=== PATIENT | female | born 1935 | race Hispanic/Latino ===

== ENCOUNTER 2017-03-10 13:43 | Emergency (ER) | payer MEDICARE, BC ==
[2017-03-10 13:45] VITALS: PULSE 73
[2017-03-10 14:01] VITALS: TEMP 97.6; BMI 26.7
--- NOTE | 2017-03-10 14:57 | ED PDOC ---
Arrival/HPI - General Chief Complaint: Palpitations Time Seen by Provider: 03/10/17 14:00 - History of Present Illness Narrative History of Present Illness (Text): 03/10/17 14:54 81 F w/ PMHx of A-Fib presents with palpitations and dizziness of a week's duration. Patient had a complete work up last weekend for the same symptoms, but presents today because her symptoms have not resolved. Patient denies cp, sob, f/ch/n/v/d. Patient refused any further work up including imaging, lab exams, and ekg. 03/10/17 15:21 Patient was initially refusing any further work-up, including imaging, lab exams , and EKG, but she is now requesting a full work up, having changed her mind. Treatment, imaging, and tests were delayed due to her initial refusal for further work up. (Nikita Scott) Past Medical History - Provider Review Nursing Documentation Reviewed: Yes - Travel History Have you recently traveled outside [place] w/in the past 3 mons?: No - Infectious Disease Hx of Infectious Diseases: None - Tetanus Immunization Tetanus Immunization: Unknown - Cardiac Hx Cardiac Disorders: Yes (CAD) Hx Cardiac Arrhythmia: Yes (AFIB) Hx Circulatory Problems: Yes Hx Hypertension: Yes - Pulmonary Hx Respiratory Disorders: Yes Hx Pneumonia: Yes (NOT HOSPITALIZED) - Neurological Hx Neurological Disorder: Yes Hx Dizziness: Yes - HEENT Hx HEENT Disorder: Yes Hx Cataracts: Yes - Musculoskeletal/Rheumatological Hx Musculoskeletal Disorders: Yes Hx Arthritis: Yes Hx Fractures: Yes (right tibia 1987, right ankle 2002) Hx Osteoporosis: Yes Hx Unsteady Gait: Yes (uses a cane arthritis r knee) - Gastrointestinal Hx Gastrointestinal Disorders: Yes (HEMORRHOIDS) - Genitourinary/Gynecological Hx Genitourinary Disorders: Yes (PMB) - Surgical History Hx Cardiac Catheterization: Yes (OCTOBER 2012) Hx Coronary Stent: Yes (x1) Hx Dilation and Curettage: Yes Hx Open Reduction Internal Fixation: Yes (RIGHT TIBIA ANKLE) - Anesthesia Hx Anesthesia: Yes Hx Anesthesia Reactions: Yes (VOMITTING) Hx Malignant Hyperthermia: No - Suicidal Assessment Feels Threatened In Home Enviroment: No Family/Social History - Physician Review Nursing Documentation Reviewed: Yes Family/Social History: Unknown Family HX Smoking Status: Never Smoked Hx Alcohol Use: No Allergies/Home Meds Allergies/Adverse Reactions: Allergies nitroglycerin Allergy (Verified 11/18/15 16:55) ANAPHYLAXIS Homeopathic substances Allergy (Uncoded 11/18/15 16:55) RASH pcn Allergy (Uncoded 11/18/15 16:55) RASH chocolate candy Adverse Reaction (Uncoded 11/18/15 16:54) HEADACHE Home Medications: Home Meds Medication Instructions Recorded Confirmed Aspirin [Ecotrin] 81 mg PO DAILY 11/18/15 03/10/17 Warfarin [Coumadin] 5 mg PO DAILY 11/18/15 03/10/17 Digoxin [Lanoxin] 1 tab PO DAILY 08/19/16 03/10/17 Simvastatin [Zocor] 40 mg PO HS 08/19/16 03/10/17 Atenolol [Tenormin] 12.5 mg PO DAILY 02/01/17 03/10/17 Calcium Carb, Citrate/Vit D3 1 tab PO DAILY 03/10/17 03/10/17 [Calcium + D3 ER Tablet] Review of Systems - Physician Review All systems were reviewed & negative as marked: Yes - Review of Systems Constitutional: Normal. absent: Fatigue, Weight Change, Fevers Eyes: Normal. absent: Vision Changes, Photophobia ENT: Normal. absent: Hearing Changes, Tinnitus Respiratory: Normal. absent: SOB, Cough, Wheezing Cardiovascular: Palpitations. absent: Normal, Chest Pain, Edema, Calf Pain, COLUNGA , Orthopnea Gastrointestinal: Normal. absent: Abdominal Pain, Constipation, Diarrhea, Nausea, Vomiting Genitourinary Female: Normal. absent: Dysuria, Frequency, Hematuria Musculoskeletal: Normal. absent: Arthralgias, Back Pain, Neck Pain Skin: Normal. absent: Rash, Pruritis, Skin Lesions, Laceration Neurological: Dizziness. absent: Normal, Focal Weakness, Speech Changes, Facial Droop (patient has a 'lazy eye' since ) Endocrine: Normal. absent: Diaphoresis, Polyuria Hemo/Lymphatic: Normal. absent: Adenopathy, Easy Bleeding Psychiatric: Normal. absent: Anxiety, Depression Physical Exam Vital Signs Reviewed: Yes Temperature: Afebrile Blood Pressure: Hypertensive Pulse: Regular Respiratory Rate: Normal Appearance: Positive for: Well-Appearing, Non-Toxic, Comfortable Pain Distress: None Mental Status: Positive for: Alert and Oriented X 3 - Systems Exam Head: Present: Atraumatic, Normocephalic. No: Contusion, Swelling, Ecchymosis Pupils: Present: PERRL. No: Sluggish, Non-Reactive, Pinpoint Extroacular Muscles: Present: EOMI. No: Gaze Palsy, Entrapment Conjunctiva: Present: Normal. No: Injected, Icteric Ears: Present: Normal, NORMAL TM, Normal Canal. No: TM Bulging, TM Perf Mouth: Present: Moist Mucous Membranes, Normal Lips, Normal Tounge, Normal Teeth. No: Dry, Drooling Pharnyx: Present: Normal. No: ERYTHEMA, Peritonsilar Swelling Nose (External): Present: Atraumatic. No: Abrasion, Contusion Nose (Internal): Present: Normal Inspection. No: No Active Bleeding, Engorged Neck: Present: Normal Range of Motion. No: MIDLINE TENDERNESS, Paraspinal Tenderness Respiratory/Chest: Present: Clear to Auscultation, Good Air Exchange. No: Respiratory Distress, Accessory Muscle Use, Wheezes, Rales, Rhonchi Cardiovascular: Present: Regular Rate and Rhythm, Normal S1, S2. No: Murmurs, Irregular Rhythm, Tachycardic Abdomen: Present: Normal Bowel Sounds. No: Tenderness, Distention, Peritoneal Signs, Rebound, Guarding Back: Present: Normal Inspection. No: CVA Tenderness, Midline Tenderness, Paraspinal Tenderness Upper Extremity: Present: Normal Inspection, Cyanosis, Edema, Normal ROM, NORMAL PULSES. No: Tenderness, Capillary Refill < 2s Lower Extremity: Present: Normal Inspection, NORMAL PULSES, Normal ROM. No: Edema, CALF TENDERNESS, Cyanosis Neurological: Present: GCS=15, CN II-XII Intact, Speech Normal, Motor Func Grossly Intact, Normal Sensory Function, Normal Cerebellar Funct, Norm Deep Tendon Reflexes Skin: Present: Warm, Normal Color. No: Dry, Rashes Lymphatic: No: Cervical Adenopathy, Axillary Adenopathy, Inguinal Adenopathy Psychiatric: Present: Alert, Oriented x 3, Normal Insight, Normal Concentration. No: Suicidal Ideation, Homicidal Ideation Medical Decision Making ED Course and Treatment: Assessed 03/10/17 15:23 Impression: 81 F with PMHx of A-Fib complains of palpitations and dizziness of one week duration. Recently had a full work-up at [place] for the same symptoms Plan: - Patient initially wanted to sign out AMA, so delayed work up. - CXR - EKG - Tropes, CMP, CBC - Coags Reassessed 03/10/17 16:00 - EKG: Interpreted by me, Atrial Fibrillation with rate of 72 bpm Reassessed 03/10/17 16:08 - CXR: Shows mild L basilar atelectasis and infiltrate - PSI Score: 82, Risk Class III, 0.9-2.8% mortality. Outpatient or inpatient treatment, depending on clinical judgment. - Patient has no sob, no fevers, no chills, no RRW. Rx'd outpatient Doxycycline 100 mg PO bid for 7 days (patient allergic to azithromycin) Reassessed 03/10/17 16:42 - Case d/w Dr. Frias for admission, he states that patient can follow up outpatient with him. Does not think she needs to be admitted right now. Patient will be d/c'd home (Nikita Scott) 03/10/17 15:57 Patient seen and examined with resident Came up with treatment and disposition plan with resident 03/10/17 17:30 pt with poorly controlled HTN, lightheadedness and palpitations, intermittent. No acute findings on PE and pt has no focal neurological deficits on examination. Initial w/u negative dw Dr. Waller in detail, states this complaint is chronic and he asked to have pt f/u outpatient pt in no distress states she feels comfortable being dc'd home with outpatient f/u at this time CXR with questionable infiltrate, will be dc'd home on abx pt has no f/c/cough, no sob/colunga/cp (Ramses Quezada) - Lab Interpretations Lab Results: 03/10/17 15:50 03/10/17 15:50 Lab Results 03/10/17 15:50: Sodium 143, Potassium 4.5, Chloride 104, Carbon Dioxide 26, Anion Gap 18, BUN 21, Creatinine 0.7, Est GFR ( Amer) > 60, Est GFR (Non- Af Amer) > 60, Random Glucose 100, Calcium 9.6, Total Bilirubin 0.7, AST 36, ALT 36, Alkaline Phosphatase 88, Troponin I < 0.01, Total Protein 8.7 H, Albumin 4.8, Globulin 3.8, Albumin/Globulin Ratio 1.3 03/10/17 15:50: APTT 41.1 H 03/10/17 15:50: WBC 9.6 D, RBC 5.13, Hgb 14.8, Hct 43.5, MCV 84.8, MCH 28.8, MCHC 34.0, RDW 15.0 H, Plt Count 177, MPV 10.6, Gran % 64.8, Lymph % (Auto) 24.7 , [place] % (Auto) 7.9 H, Eos % (Auto) 2.1, Baso % (Auto) 0.5, Gran # 6.20, Lymph # 2.4, [place] # 0.8 H, Eos # 0.2, Baso # 0.05 - RAD Interpretation Radiology Orders: 03/10/17 14:36 CHEST PORTABLE [RAD] Stat Disposition/Present on Arrival - Present on Arrival Any Indicators Present on Arrival: No History of DVT/PE: No History of Uncontrolled Diabetes: No Urinary Catheter: No History of Decub. Ulcer: No History Surgical Site Infection Following: None - Disposition Have Diagnosis and Disposition been Completed?: Yes Disposition Time: 16:47 Patient Plan: Discharge - Disposition Diagnosis: Dizziness, Palpitations Disposition: HOME/ ROUTINE Condition: GOOD Additional Instructions: Kamryn Imelda, thank you for letting us take care of you today. Your providers were Dr. Quezada and Dr. Scott. You were treated for palpitations and dizziness. The emergency medical care you received today was directed at your acute symptoms. If you were prescribed any medication, please fill it and take as directed. It may take several days for your symptoms to resolve. Return to the Emergency Department if your symptoms worsen, do not improve, or if you have any other problems. Please contact your doctor or call one of the physicians/clinics you have been referred to that are listed on the Patient Visit Information form that is included in your discharge packet. Bring any paperwork you were given at discharge with you along with any medications you are taking to your follow up visit. Our treatment cannot replace ongoing medical care by a primary care provider (PCP) outside of the emergency department. Thank you for allowing the [facility] team to be part of your care today. If you had an X-Ray or CT scan: A Radiologist will review the ED reading if any change in treatment is needed we will contact you. If you had a blood, urine, or wound culture: It will take several days for the results, if any change in treatment is needed we will contact you. If you had an STI test: It will take 48 hours for the results. Please call after 1 week if you have not heard back. 1. Please follow up with your primary care provider, Dr. Frias, within this week. 2. Should your symptoms persist or get worse, please return to the ED. Prescriptions: Doxycycline Hyclate 100 mg PO BID #14 cap Forms: [employer] (Mal[place]ian)
[2017-03-10 16:02] LABS: BASO # 0.05 K/mm3 (0.0-2.0); BASO % 0.5 % (0.0-3.0); EOS # 0.2 (0.0-0.7); EOS % 2.1 % (1.5-5.0); GRAN # 6.2 (1.4-6.5); GRAN % 64.8 % (50.0-68.0); HEMATOCRIT 43.5 % (36.0-48.0); LYMPH # 2.4 (1.2-3.4); LYMPH % 24.7 % (22.0-35.0); MEAN CELL VOLUME 84.8 fl (80.0-105.0); MEAN CORPUSCULAR HEMOGLOBIN 28.8 pg (25.0-35.0); MEAN PLATELET VOLUME 10.6 fl (7.0-11.0); MONO # 0.8 (0.1-0.6); MONO % 7.9 % (1.0-6.0); WHITE BLOOD COUNT 9.6 10^3/ul (4.5-11.0)
[2017-03-10 16:08] VITALS: BP 159/98; PULSE 88
[2017-03-10 16:18] LABS: BLOOD UREA NITROGEN 21 mg/dL (7-21); GLUCOSE,RANDOM 100 mg/dL (70-110)
[2017-03-10 16:19] LABS: ALB/GLOB RATIO 1.3 (1.1-1.8); ALKALINE PHOSPHATASE 88 U/L (38-126); ALT/SGPT 36 U/L (7-56); AST/SGOT 36 U/L (14-36); BILIRUBIN,TOTAL 0.7 mg/dL (0.2-1.3); CALCIUM 9.6 mg/dL (8.4-10.5); CARBON DIOXIDE 26 mmol/L (21-33); CHLORIDE 104 mmol/L (98-107); GFR AFRICAN-AMERICAN > 60; POTASSIUM 4.5 mmol/L (3.6-5.0); SODIUM 143 mmol/L (132-148); TOTAL PROTEIN 8.7 g/dL (5.8-8.3)
[2017-03-10 16:32] LABS: TROPONIN I < 0.01 ng/mL
--- NOTE | 2017-03-10 16:43 | RAD ---
HISTORY: palpitations COMPARISON: Chest x-ray performed 09/07/16 TECHNIQUE: Chest, one view. FINDINGS: Examination limited by habitus. LUNGS: Mild left basilar atelectasis/infiltrate. Please note that chest x-ray has limited sensitivity for the detection of pulmonary masses. PLEURA: No significant pleural effusion identified. No definite pneumothorax. CARDIOVASCULAR: Marked cardiomegaly. Dense atherosclerotic calcifications of the aortic knob. OSSEOUS STRUCTURES: Osseous demineralization. Degenerative changes. VISUALIZED UPPER ABDOMEN: Unremarkable. OTHER FINDINGS: None. IMPRESSION: Mild left basilar atelectasis/infiltrate.
[2017-03-10 17:01] VITALS: RESP 16; O2SAT 99
--- NOTE | 2017-03-11 16:25 | CARD ---
APPROVED REPORT EKG Measurement Heart [id number] <Conclusion> Atrial fibrillation Nonspecific ST abnormality, probably digitalis effect Abnormal ECG
== END 2017-03-10 17:01 | disposition home or self-care (01) ==
LOC: ED 13:43
DX: R00.2 Palpitations (principal); R42 Dizziness and giddiness; I10 Essential (primary) hypertension; I48.91 Unspecified atrial fibrillation; Z79.01 Long term (current) use of anticoagulants

== ENCOUNTER 2018-03-31 10:15 | Inpatient (IN) | payer MEDICARE, BC ==
--- NOTE | 2018-03-31 11:12 | ED PDOC ---
Arrival/HPI - General Historian: Patient, Family - History of Present Illness Time/Duration: Prior to Arrival Symptom Onset: Sudden Symptom Course: Unchanged Quality: Burning Activities at Onset: Light <Andrei Irvin - Last Filed: 03/31/18 12:30> <Robert Jara DO - Last Filed: 03/31/18 18:41> - General Chief Complaint: Lower Extremity Problem/Injury Time Seen by Provider: 03/31/18 10:16 - History of Present Illness Narrative History of Present Illness (Text): 03/31/18 11:07 82 yo F with Past medical history of CAD w/ stent placement, hypertension, Afib , OA R knee presenting to Emergency department from Dr. Watson's office s/p R TKR for R knee infection. Last hospital admission was for R DJD with TKR, stitches were removed 2 weeks ago. Patient was seen in Dr. Watson's office who referred her to emergency department for concerns of R knee infection. Patient endorses burning sensation of R lateral knee, pain at the joint line b/l. Of note, patient also has associated dysuria and increased urinary frequency x 1 day. No fevers/chills, chest pain, palpitations , shortness of breath, cough, abdominal pain, nausea/vomiting/diarrhea/ constipation, or bleeding episodes. PMHx: CAD w/stent placement (1999), HTN, Afib (INR 1.21, 02/18/18), R Knee DJD PSHx: ORIF R tibia, ankle; stent placement, R knee TKR (02/18/18) Allergies: Benadryl, nitro--anaphylaxis, PCN--rash, chocolate--EVANS Home Medications: warfarin, simvastatin 40 mg PO HS daily, Digoxin 0.125 mg PO daily, Vit D 1 tablet daily, atenolol 25 mg PO BID, ASA 81 mg PO daily Social Hx: denies alcohol, tobacco, drug use Family Hx: "heart disease" PMD: Dr. Goode Surgeon: Dr. Watson (Andrei Irvin) Past Medical History - Provider Review Nursing Documentation Reviewed: Yes - Travel History Have you recently traveled outside [place] w/in the past 3 mons?: No - Infectious Disease Hx of Infectious Diseases: None - Tetanus Immunization Tetanus Immunization: Unknown - Cardiac Hx Cardiac Disorders: Yes (A fib) Hx Hypertension: Yes - Pulmonary Hx Respiratory Disorders: Yes Hx Pneumonia: Yes - Neurological Hx Neurological Disorder: Yes Hx Dizziness: Yes - HEENT Hx HEENT Disorder: Yes Hx Cataracts: Yes - Renal Hx Renal Disorder: No - Endocrine/Metabolic Hx Endocrine Disorders: No - Hematological/Oncological Hx Blood Disorders: No - Integumentary Hx Dermatological Disorder: No - Musculoskeletal/Rheumatological Hx Arthritis: Yes - Gastrointestinal Hx Gastrointestinal Disorders: No - Genitourinary/Gynecological Hx Genitourinary Disorders: Yes (PMB) - Psychiatric Hx Psychophysiologic Disorder: No Hx Substance Use: No - Surgical History Hx Cardiac Catheterization: Yes (OCTOBER 2012) Hx Coronary Stent: Yes (x1) Hx Dilation and Curettage: Yes Hx Open Reduction Internal Fixation: Yes (RIGHT TIBIA ANKLE) - Anesthesia Hx Anesthesia: Yes Hx Anesthesia Reactions: Yes Hx Malignant Hyperthermia: No - Suicidal Assessment Feels Threatened In Home Enviroment: No <Andrei Irvin - Last Filed: 03/31/18 12:30> Family/Social History - Physician Review Nursing Documentation Reviewed: Yes Family/Social History: CAD/GA Smoking Status: Never Smoked Hx Alcohol Use: No Hx Substance Use: No <Andrei Irvin - Last Filed: 03/31/18 12:30> Allergies/Home Meds <Andrei Irvin - Last Filed: 03/31/18 12:30> <Robert Jara DO - Last Filed: 03/31/18 18:41> Allergies/Adverse Reactions: Allergies diphenhydramine [From Benadryl] Allergy (Severe, Verified 02/07/18 10:08) unknown nitroglycerin Allergy (Severe, Verified 02/07/18 10:08) ANAPHYLAXIS pcn Allergy (Severe, Uncoded 02/07/18 10:08) RASH chocolate candy Adverse Reaction (Severe, Uncoded 02/07/18 10:08) HEADACHE Home Medications: Home Meds Medication Instructions Recorded Confirmed Aspirin [Ecotrin] 81 mg PO DAILY 11/18/15 03/31/18 Warfarin [Coumadin] 3.5 mg PO DAILY 11/18/15 03/31/18 Digoxin 0.125 mg PO DAILY 08/19/16 03/31/18 Simvastatin [Zocor] 40 mg PO HS 08/19/16 03/31/18 Atenolol [Tenormin] 25 mg PO BID 02/01/17 03/31/18 Furosemide [Lasix] 40 mg PO DAILY 03/31/18 03/31/18 Review of Systems - Review of Systems Constitutional: Normal Eyes: Normal. absent: Vision Changes ENT: Normal. absent: Hearing Changes Respiratory: Normal. absent: SOB, Cough Cardiovascular: Normal. absent: Chest Pain, Palpitations, Edema, Calf Pain Gastrointestinal: Normal. absent: Abdominal Pain, Constipation, Diarrhea, Nausea, Vomiting Genitourinary Female: Dysuria, Frequency Musculoskeletal: Joint Swelling Neurological: Normal Endocrine: Polyuria Hemo/Lymphatic: Normal Psychiatric: Normal <Andrei Irvin - Last Filed: 03/31/18 12:30> - Physician Review All systems were reviewed & negative as marked: Yes <Robert Jara DO - Last Filed: 03/31/18 18:41> Physical Exam Vital Signs Reviewed: Yes Temperature: Afebrile Blood Pressure: Normal Pulse: Regular Respiratory Rate: Normal Appearance: Positive for: Non-Toxic, Comfortable Mental Status: Positive for: Alert and Oriented X 3 - Systems Exam Head: Present: Atraumatic, Normocephalic Pupils: Present: PERRL Extroacular Muscles: Present: EOMI Conjunctiva: Present: Normal Ears: Present: Normal Mouth: Present: Moist Mucous Membranes Neck: Present: Normal Range of Motion Respiratory/Chest: Present: Clear to Auscultation, Good Air Exchange. No: Respiratory Distress, Wheezes, Rales, Rhonchi Cardiovascular: Present: Normal S1, S2 Abdomen: Present: Tenderness, Distention, Normal Bowel Sounds. No: Rebound, Guarding, Mass/Organomegaly Back: Present: Normal Inspection Upper Extremity: Present: Normal Inspection, Normal ROM, NORMAL PULSES, Capillary Refill < 2s. No: Edema Lower Extremity: Present: Tenderness, Swelling, Erythema. No: Normal Inspection Neurological: Present: CN II-XII Intact, Speech Normal, Motor Func Grossly Intact, Normal Sensory Function, Memory Normal Skin: Present: Warm, Dry Psychiatric: Present: Alert, Oriented x 3, Normal Insight, Normal Concentration <Andrei Irvin - Last Filed: 03/31/18 12:30> <Robert Jara DO - Last Filed: 03/31/18 18:41> - Physical Exam Narrative Physical Exam (Text): 03/31/18 11:16 RLE: s/p TKR, erythematous, warm/tender/swollen compared to L; TTP along R knee joint line lateral>medial gross motor and sensation intact (Andrei Irvin) Vital Signs Temp Pulse Resp BP Pulse Ox 03/31/18 13:15 98.0 F 68 18 131/61 98 03/31/18 12:22 71 18 135/65 98 03/31/18 10:16 98.2 F 77 18 138/69 100 Medical Decision Making - EKG Interpretation Interpreted by ED Physician: Yes Type: 12 lead EKG <Andrei Irvin - Last Filed: 03/31/18 12:30> - RAD Interpretation Chicken Dresser: Radiologist <Robert Jara DO - Last Filed: 03/31/18 18:41> ED Course and Treatment: 03/31/18 11:19 Impression: R knee infection/cellulitis Differential Diagnosis included but are not limited to: Plan: -- CBC, CMP -- PT/INR -- EKG -- CXR -- consult ID (Dr. Simeon) -- admit under orthopedics -- Reassess and disposition Prior Visits: Notes and results from previous visits were reviewed. Patient was last seen in the emergency department on Progress Notes: Reached out to Dr. Watson's office. Per PA, instructed not to start patient on Abx in emergency department. Consult ID (Dr. Simeon). (Andrei Irvin) 03/31/18 11:23 Impression: 82 year old female presenting to Emergency department from Dr. Watson's office s/p R TKR for R knee infection. Patient Seen with Resident: In agreement with resident note which contains more details about the patient. Patient seen and evaluated with resident. Came up with plan and treatment together. Plan: -- EKG -- Labs -- X-Ray of chest -- Reassess and disposition Progress Notes: Chest X-Ray reviewed by radiologist, shows: Dictator : Elio Alexander MD Report Date : 03/31/2018 12:39:54 FINDINGS: LUNGS: No active pulmonary disease. PLEURA: No significant pleural effusion identified, no pneumothorax apparent. CARDIOVASCULAR: Cardiomegaly. No evidence of acute, significant cardiovascular disease. OSSEOUS STRUCTURES: No significant abnormalities. VISUALIZED UPPER ABDOMEN: Normal. OTHER FINDINGS: None. IMPRESSION: No active disease. No significant interval change compared to the prior examination(s). (Robert Jara DO) - Lab Interpretations Lab Results: 03/31/18 11:30 03/31/18 11:30 Lab Results 03/31/18 11:30: Sodium 137, Potassium 2.9 L* D, Chloride 100, Carbon Dioxide 26 , Anion Gap 14, BUN 15, Creatinine 0.7, Est GFR ( Amer) > 60, Est GFR ( Non-Af Amer) > 60, Random Glucose 105, Calcium 9.3, Total Bilirubin 1.5 H, AST 23, ALT 16, Alkaline Phosphatase 79, Total Protein 7.0, Albumin 3.8, Globulin 3.2, Albumin/Globulin Ratio 1.2 03/31/18 11:30: PT 45.1 H, INR 3.82 H*, APTT 41.5 H 03/31/18 11:30: WBC 8.9 D, RBC 4.30, Hgb 11.5 L D, Hct 36.3, MCV 84.4, MCH 26.7 , MCHC 31.7, RDW 16.9 H, Plt Count 183, MPV 11.2 H, Gran % 74.2 H, Lymph % (Auto ) 17.7 L, [place] % (Auto) 6.0, Eos % (Auto) 1.6, Baso % (Auto) 0.5, Gran # 6.57 H , Lymph # (Auto) 1.6, [place] # (Auto) 0.5, Eos # (Auto) 0.1, Baso # (Auto) 0.04 - RAD Interpretation Radiology Orders: 03/31/18 11:06 CHEST PORTABLE [RAD] Stat - EKG Interpretation EKG Interpretation (Text): 03/31/18 11:23 Afib, 70 bpm incomplete RBBB Marked ST abnormality, possible inferior subendocardial injury (Andrei Irvin) - Medication Orders Current Medication Orders: Acetaminophen (Tylenol 325mg Tab) 650 mg PO Q6H PRN PRN Reason: Pain, Mild (1-3) Discontinued Medications Potassium Chloride (Potassium Chloride 10 Meq/100 Ml) 10 meq in 100 mls @ 50 mls/hr IVPB Q2H SONU Stop: 03/31/18 16:29 Last Admin: 03/31/18 13:36 Dose: 50 mls/hr eMAR Start Stop Document 03/31/18 13:36 EQ (Rec: 03/31/18 13:36 EQ [id number]) Intravenous Solution Start Date 03/31/18 Start Time 13:36 Ondansetron HCl (Zofran Inj) 4 mg IVP STAT STA Stop: 03/31/18 12:11 Last Admin: 03/31/18 12:17 Dose: 4 mg IVP Administration Document 03/31/18 12:17 EQ (Rec: 03/31/18 12:17 EQ [id number]) Charges for Administration # of IVP Administrations 1 Phytonadione (Vitamin K Tab) 10 mg PO ONCE ONE Stop: 03/31/18 15:08 Last Admin: 03/31/18 16:12 Dose: 10 mg Potassium Chloride (K-Dur 20 Meq Er Tab) 40 meq PO ONCE ONE Stop: 03/31/18 14:42 Last Admin: 03/31/18 16:12 Dose: 40 meq <Andrei Irvin - Last Filed: 03/31/18 12:30> - PA / MOVER / Resident Statement GETACHEW has reviewed & agrees with the documentation as recorded. GETACHEW has examined the patient and agrees with the treatment plan. - Scribe Statement The provider has reviewed the documentation as recorded by the Scribe <Robert Jara DO - Last Filed: 03/31/18 18:41> - Scribe Statement Tiffanie Montoyah All medical record entries made by the Scribe were at my direction and personally dictated by me. I have reviewed the chart and agree that the record accurately reflects my personal performance of the history, physical exam, medical decision making, and the department course for this patient. I have also personally directed, reviewed, and agree with the discharge instructions and disposition. (Robert Jara DO) Disposition/Present on Arrival - Present on Arrival History of DVT/PE: No History of Uncontrolled Diabetes: No Urinary Catheter: No History of Decub. Ulcer: No History Surgical Site Infection Following: None <Andrei Irvin - Last Filed: 03/31/18 12:30> - Present on Arrival Any Indicators Present on Arrival: No - Disposition Have Diagnosis and Disposition been Completed?: Yes Disposition Time: 11:20 <Robert Jara DO - Last Filed: 03/31/18 18:41> - Disposition Diagnosis: Surgical site infection Disposition: HOSPITALIZED Condition: STABLE
[2018-03-31 11:45] LABS: BASO # 0.04 K/mm3 (0.0-2.0); BASO % 0.5 % (0.0-3.0); EOS # 0.1 (0.0-0.7); EOS % 1.6 % (1.5-5.0); GRAN # 6.57 (1.4-6.5); GRAN % 74.2 % (50.0-68.0); HEMOGLOBIN 11.5 g/dL (12.0-16.0); LYMPH # 1.6 (1.2-3.4); LYMPH % 17.7 % (22.0-35.0); MEAN CELL VOLUME 84.4 fl (80.0-105.0); MEAN CORPUSCULAR HEMOGLOBIN 26.7 pg (25.0-35.0); MEAN CORPUSCULAR HGB CONC 31.7 g/dl (31.0-37.0); MEAN PLATELET VOLUME 11.2 fl (7.0-11.0); MONO # 0.5 (0.1-0.6); RBC 4.3 10^6/uL (3.5-6.1); RED CELL DISTRIBUTION WIDTH 16.9 % (11.5-14.5); WHITE BLOOD COUNT 8.9 10^3/ul (4.5-11.0)
[2018-03-31 11:58] LABS: PARTIAL THROMBOPLASTIN TIME 41.5 Seconds (25.1-36.5); PROTHROMBIN TIME 45.1 SECONDS (9.4-12.5)
[2018-03-31 12:08] LABS: INR 3.82
[2018-03-31 12:12] LABS: ALB/GLOB RATIO 1.2 (1.1-1.8); ALBUMIN 3.8 g/dL (3.0-4.8); ALT/SGPT 16 U/L (7-56); AST/SGOT 23 U/L (14-36); BLOOD UREA NITROGEN 15 mg/dL (7-21); CALCIUM 9.3 mg/dL (8.4-10.5); GFR NON-AFRICAN AMERICAN > 60
--- NOTE | 2018-03-31 12:41 | RAD ---
Date of service: 03/31/2018 HISTORY: r/o infiltrate COMPARISON: 02/07/2018 FINDINGS: LUNGS: No active pulmonary disease. PLEURA: No significant pleural effusion identified, no pneumothorax apparent. CARDIOVASCULAR: Cardiomegaly. No evidence of acute, significant cardiovascular disease. OSSEOUS STRUCTURES: No significant abnormalities. VISUALIZED UPPER ABDOMEN: Normal. OTHER FINDINGS: None. IMPRESSION: No active disease. No significant interval change compared to the prior examination(s).
--- NOTE | 2018-03-31 13:18 | CARD ---
APPROVED REPORT Date of service: 03/31/2018 EKG Measurement Heart [id number] <Conclusion> June Louie PVCs RVCD STTW changes c/w ischemia, new c/w ECG 02/07/18
[2018-03-31] MEDS ORDERED: Potassium Chloride 20 mEq ER Tab PO ONE ×2 (14:41→21:45)
[2018-03-31 20:02] VITALS: BMI 25.8
[2018-03-31] MEDS ORDERED: Influenza Vaccine 60 mcg/0.5 mL SYR (4YR UP) IM ONE (20:02)
[2018-03-31] MEDS ORDERED: Pneumococcal 23-Valent Vaccine IM ONE (20:02)
--- NOTE | 2018-03-31 21:40 | CP.PCM.CON ---
History of Present Illness - History of Present Illness History of Present Illness: 82 year old female with PMH of CAD S/P PCI, HTN, atrial fibrillation, osteoarthritis S/P right knee replacement just recently 1 month ago came in to [facility] [place] a gap was noted after stitches were removed and some bleeding and serous discharge was noted. She denies animal contacts, no soaking of leg in water, denies specific trauma to the leg. She denies fever or chills, no nausea or vomiting, no chest pain, no SOB, no headache or dizziness, no abdominal pain , no diarrhea, no dysuria. Infectious Diseases consult is requested to further evaluate and manage. Review of Systems - Review of Systems All systems: reviewed and no additional remarkable complaints except (as per HPI ) Past Patient History - Infectious Disease Hx of Infectious Diseases: None - Tetanus Immunizations Tetanus Immunization: Unknown - Past Medical History & Family History Past Medical History?: Yes - Past Social History Smoking Status: Never Smoked - CARDIAC Hx Cardiac Disorders: Yes (A fib) Hx Hypertension: Yes - PULMONARY Hx Respiratory Disorders: Yes Hx Pneumonia: Yes - NEUROLOGICAL Hx Neurological Disorder: Yes Hx Dizziness: Yes - HEENT Hx HEENT Problems: Yes Hx Cataracts: Yes - RENAL Hx Chronic Kidney Disease: No - ENDOCRINE/METABOLIC Hx Endocrine Disorders: No - HEMATOLOGICAL/ONCOLOGICAL Hx Blood Disorders: No - INTEGUMENTARY Hx Dermatological Problems: No - MUSCULOSKELETAL/RHEUMATOLOGICAL Hx Arthritis: Yes - GASTROINTESTINAL Hx Gastrointestinal Disorders: No - GENITOURINARY/GYNECOLOGICAL Hx Genitourinary Disorders: Yes (PMB) - PSYCHIATRIC Hx Psychophysiologic Disorder: No Hx Substance Use: No - SURGICAL HISTORY Hx Cardiac Catheterization: Yes (OCTOBER 2012) Hx Coronary Stent: Yes (x1) Hx Dilation and Curettage: Yes Hx Open Reduction Internal Fixation: Yes (RIGHT TIBIA ANKLE) - ANESTHESIA Hx Anesthesia: Yes Hx Anesthesia Reactions: Yes Hx Malignant Hyperthermia: No Meds Allergies/Adverse Reactions: Allergies Allergy/AdvReac Type Severity Reaction Status Date / Time diphenhydramine Allergy Severe unknown Verified 02/07/18 10:08 [From Benadryl] nitroglycerin Allergy Severe ANAPHYLAXIS Verified 02/07/18 10:08 pcn Allergy Severe RASH Uncoded 02/07/18 10:08 chocolate candy AdvReac Severe HEADACHE Uncoded 02/07/18 10:08 - Medications Medications: Current Medications Potassium Chloride (Potassium Chloride 10 Meq/100 Ml) 10 meq in 100 mls @ 50 mls/hr IVPB Q2H OSNU Stop: 03/31/18 16:29 Last Admin: 03/31/18 13:36 Dose: 50 mls/hr Physical Exam - Constitutional Appears: Non-toxic, No Acute Distress - Head Exam Head Exam: NORMAL INSPECTION - Respiratory Exam Respiratory Exam: Decreased Breath Sounds - Cardiovascular Exam Cardiovascular Exam: +S1, +S2 - GI/Abdominal Exam GI & Abdominal Exam: Soft. absent: Tenderness - Extremities Exam Additional comments: right knee with dressings in place Results - Vital Signs Recent Vital Signs: Last Vital Signs Temp 98.0 F 03/31/18 13:15 Pulse 68 03/31/18 13:15 Resp 18 03/31/18 13:15 BP 131/61 03/31/18 13:15 Pulse Ox 98 03/31/18 13:15 - Labs Result Diagrams: 03/31/18 11:30 03/31/18 11:30 Labs: Laboratory Results - last 24 hr 03/31/18 12:45 Blood Type O NEGATIVE Antibody Screen Negative BBK History Checked Patient has bt Assessment & Plan - Assessment and Plan (Free Text) Plan: Assessment R/O right knee prosthetic knee infection CAD S/P PCI HTN atrial fibrillation osteoarthritis S/P right knee replacement Plan will start Vancomycin and Azactam and will follow up blood and wound cx; Ortho planning on debridement of knee will monitor clinically
[2018-03-31] MEDS: Aztreonam 1 Gm in NS 100mL 100 ML IVPB SCH (22:01)
[2018-03-31] MEDS: Vancomycin 1gm in NS 250ml 1 GM/250 ML BAG IVPB SCH (22:02)
--- NOTE | 2018-04-01 06:31 | CP.PCM.CON ---
<Maru Boothe - Last Filed: 04/01/18 13:14> History of Present Illness - History of Present Illness History of Present Illness: Medicine Consult Note for Jose Manuel London PGY3 This is an 82yo female with past medical history of HTN, CAD, a.fib, OA who came to ED for R knee pain. Patient had R TKA on 02/18/2018. Patient reports that she noticed some pain and swelling in her R knee. She denies having any recent trauma, travel, contact with animals. Patient denies chest pain, shortness of breath, nausea/vomiting/diarrhea, fever/chills, dysuria/hematuria, numbness or tingling. She does complain of decreased ambulation due to pain in her R knee. She has been following up with Dr. Watson regularly since her surgery. Past medical history: HTN, CAD s/p PCI, Afib (on Coumadin), OA Past surgical history: R TKA (02/2018), ORIF R tibia (), PCI Home meds: Reviewed as per MAR Allergies: Benadryl, Nitroglycerin (anaphylaxis), Penicillin (rash), chocolate (headache) Social history: Denies tobacco, EtOH or drug use. Lives alone. Walks with walker. Family history: heart disease Review of Systems - Review of Systems All systems: reviewed and no additional remarkable complaints except Review of Systems: 12 point ROS reviewed as per HPI and is otherwise negative. Past Patient History - Infectious Disease Hx of Infectious Diseases: None - Tetanus Immunizations Tetanus Immunization: Unknown - Past Medical History & Family History Past Medical History?: Yes - Past Social History Smoking Status: Never Smoked - CARDIAC Hx Cardiac Disorders: Yes (A fib) Hx Hypertension: Yes - PULMONARY Hx Respiratory Disorders: Yes Hx Pneumonia: Yes - NEUROLOGICAL Hx Neurological Disorder: Yes Hx Dizziness: Yes - HEENT Hx HEENT Problems: Yes Hx Cataracts: Yes - RENAL Hx Chronic Kidney Disease: No - ENDOCRINE/METABOLIC Hx Endocrine Disorders: No - HEMATOLOGICAL/ONCOLOGICAL Hx Blood Disorders: No - INTEGUMENTARY Hx Dermatological Problems: No - MUSCULOSKELETAL/RHEUMATOLOGICAL Hx Arthritis: Yes - GASTROINTESTINAL Hx Gastrointestinal Disorders: No - GENITOURINARY/GYNECOLOGICAL Hx Genitourinary Disorders: Yes (PMB) - PSYCHIATRIC Hx Psychophysiologic Disorder: No Hx Substance Use: No - SURGICAL HISTORY Hx Cardiac Catheterization: Yes (OCTOBER 2012) Hx Coronary Stent: Yes (x1) Hx Dilation and Curettage: Yes Hx Open Reduction Internal Fixation: Yes (RIGHT TIBIA ANKLE) - ANESTHESIA Hx Anesthesia: Yes Hx Anesthesia Reactions: Yes Hx Malignant Hyperthermia: No Meds Allergies/Adverse Reactions: Allergies Allergy/AdvReac Type Severity Reaction Status Date / Time diphenhydramine Allergy Severe unknown Verified 02/07/18 10:08 [From Benadryl] nitroglycerin Allergy Severe ANAPHYLAXIS Verified 02/07/18 10:08 pcn Allergy Severe RASH Uncoded 02/07/18 10:08 chocolate candy AdvReac Severe HEADACHE Uncoded 02/07/18 10:08 - Medications Medications: Current Medications Acetaminophen (Tylenol 325mg Tab) 650 mg PO Q6H PRN PRN Reason: Pain, Mild (1-3) Aztreonam (Azactam 1 Gm) 100 mls @ 100 mls/hr IVPB Q8 SONU; Protocol Stop: 04/07/18 22:01 Last Admin: 03/31/18 22:01 Dose: 100 mls/hr Vancomycin HCl (Vancomycin 1gm) 1 gm in 250 mls @ 167 mls/hr IVPB Q12H SONU; Protocol Last Admin: 03/31/18 22:02 Dose: 167 mls/hr Physical Exam - Constitutional Appears: No Acute Distress - Head Exam Head Exam: ATRAUMATIC, NORMAL INSPECTION, NORMOCEPHALIC - Eye Exam Eye Exam: Normal appearance, PERRL Pupil Exam: NORMAL ACCOMODATION, PERRL - ENT Exam ENT Exam: Mucous Membranes Moist - Respiratory Exam Respiratory Exam: Clear to Auscultation Bilateral, NORMAL BREATHING PATTERN. absent: Rales, Rhonchi, Wheezes - Cardiovascular Exam Cardiovascular Exam: REGULAR RHYTHM, +S1, +S2. absent: Gallop, Rubs, Systolic Murmur - GI/Abdominal Exam GI & Abdominal Exam: Normal Bowel Sounds, Soft. absent: Rebound, Rigid, Tenderness - Extremities Exam Extremities exam: Positive for: pedal edema Additional comments: R knee redness with some swelling. Joint line tenderness - Neurological Exam Neurological exam: Alert, CN II-XII Intact, Oriented x3 - Psychiatric Exam Psychiatric exam: Normal Affect, Normal Mood - Skin Skin Exam: Dry, Warm Results - Vital Signs Recent Vital Signs: Last Vital Signs Temp 98 F 03/31/18 19:43 Pulse 68 03/31/18 19:43 Resp 18 03/31/18 19:43 BP 131/61 03/31/18 19:43 Pulse Ox 97 03/31/18 14:00 - Labs Result Diagrams: 03/31/18 11:30 04/01/18 06:45 Labs: Laboratory Results - last 24 hr 03/31/18 03/31/18 03/31/18 11:30 11:30 11:30 WBC 8.9 D RBC 4.30 Hgb 11.5 L D Hct 36.3 MCV 84.4 MCH 26.7 MCHC 31.7 RDW 16.9 H Plt Count 183 MPV 11.2 H Gran % 74.2 H Lymph % (Auto) 17.7 L [place] % (Auto) 6.0 Eos % (Auto) 1.6 Baso % (Auto) 0.5 Gran # 6.57 H Lymph # (Auto) 1.6 [place] # (Auto) 0.5 Eos # (Auto) 0.1 Baso # (Auto) 0.04 ESR PT 45.1 H INR 3.82 H* APTT 41.5 H Sodium 137 Potassium 2.9 L* D Chloride 100 Carbon Dioxide 26 Anion Gap 14 BUN 15 Creatinine 0.7 Est GFR ( Amer) > 60 Est GFR (Non-Af Amer) > 60 Random Glucose 105 Calcium 9.3 Total Bilirubin 1.5 H AST 23 ALT 16 Alkaline Phosphatase 79 C-Reactive Protein Total Protein 7.0 Albumin 3.8 Globulin 3.2 Albumin/Globulin Ratio 1.2 Blood Type Antibody Screen BBK History Checked 03/31/18 03/31/18 03/31/18 12:45 14:16 14:16 WBC RBC Hgb Hct MCV MCH MCHC RDW Plt Count MPV Gran % Lymph % (Auto) Durham % (Auto) Eos % (Auto) Baso % (Auto) Gran # Lymph # (Auto) [place] # (Auto) Eos # (Auto) Baso # (Auto) ESR 7 PT INR APTT Sodium Potassium Chloride Carbon Dioxide Anion Gap BUN Creatinine Est GFR ( Amer) Est GFR (Non-Af Amer) Random Glucose Calcium Total Bilirubin AST ALT Alkaline Phosphatase C-Reactive Protein 6.40 Total Protein Albumin Globulin Albumin/Globulin Ratio Blood Type O NEGATIVE Antibody Screen Negative BBK History Checked Patient has bt Assessment & Plan - Assessment and Plan (Free Text) Assessment: This is an 82yo female with past medical history of HTN, CAD, a.fib (on Coumadin), OA, DJD of R knee s/p R TKA who was admitted for 1. R knee infection s/p R TKA 2. A.fib - Coumadin on hold 3. Supratherapeutic INR- resolved 4. HTN 5. CAD Plan: She is on Aztreonam and Vac. ID is on consult. Patient is going to OR in AM. Restart Coumadin after surgery. Continue PO home medications (Atenolol, Digoxin, Zocor and Lasix). Continue physical therapy. Patient is on GI and DVT prophylaxis. Will continue to monitor INR. Case seen, discussed and reviewed with Dr. Waller. Jose Manuel Boothe PGY3 - Date & Time Date: 04/01/18 Time: 13:50 <Ajay Waller S - Last Filed: 04/01/18 18:36> Meds - Medications Medications: Current Medications Acetaminophen (Tylenol 325mg Tab) 650 mg PO Q6H PRN PRN Reason: Pain, Mild (1-3) Atenolol (Tenormin) 25 mg PO BID SONU Last Admin: 04/01/18 18:10 Dose: 25 mg Atorvastatin Calcium (Lipitor) 20 mg PO HS SONU Digoxin (Digoxin) 0.125 mg PO DAILY SONU Famotidine (Pepcid) 40 mg PO HS SONU Furosemide (Lasix) 40 mg PO DAILY SONU Aztreonam (Azactam 1 Gm) 100 mls @ 100 mls/hr IVPB Q8 SONU; Protocol Stop: 04/07/18 22:01 Last Admin: 04/01/18 14:04 Dose: Not Given Vancomycin HCl (Vancomycin 1gm) 1 gm in 250 mls @ 167 mls/hr IVPB Q12H SONU; Protocol Last Admin: 03/31/18 22:02 Dose: 167 mls/hr Potassium Chloride (K-Dur 20 Meq Er Tab) 20 meq PO DAILY SONU Results - Vital Signs Recent Vital Signs: Last Vital Signs Temp 98.1 F 04/01/18 14:00 Pulse 69 04/01/18 18:10 Resp 18 04/01/18 14:00 BP 119/64 04/01/18 18:10 Pulse Ox 96 04/01/18 14:00 - Labs Result Diagrams: 03/31/18 11:30 04/01/18 06:45 Labs: Laboratory Results - last 24 hr 03/31/18 04/01/18 04/01/18 14:16 06:45 06:45 PT 24.2 H INR 2.07 Sodium 140 Potassium 3.6 Chloride 104 Carbon Dioxide 29 Anion Gap 10 BUN 14 Creatinine 0.7 Est GFR ( Amer) > 60 Est GFR (Non-Af Amer) > 60 Random Glucose 90 Calcium 8.7 Total Bilirubin 1.1 AST 18 ALT 20 Alkaline Phosphatase 62 C-Reactive Protein 6.40 Total Protein 5.8 Albumin 3.0 Globulin 2.8 Albumin/Globulin Ratio 1.1 Assessment & Plan - Assessment and Plan (Free Text) Plan: Pt seen and examined. I have reviewed the note of the medical director/head team physician and agree with it. I have discussed the assessment and plan with the resident. I have reviewed the patient's labs and medications. Pt with infected R knee. She had low K and it was replaced. She is going to the OR in the AM. She is on IV Azacta m and Vanco. Pain is controlled. Will follow. Coumadin on hold due to high INR.
[2018-04-01 07:19] LABS: INR 2.07; PROTHROMBIN TIME 24.2 SECONDS (9.4-12.5)
[2018-04-01 07:28] LABS: ALB/GLOB RATIO 1.1 (1.1-1.8); ALT/SGPT 20 U/L (7-56); AST/SGOT 18 U/L (14-36); BLOOD UREA NITROGEN 14 mg/dL (7-21); CALCIUM 8.7 mg/dL (8.4-10.5); GFR NON-AFRICAN AMERICAN > 60
[2018-04-01] MEDS: Aztreonam 1 Gm in NS 100mL 100 ML IVPB SCH ×2 (14:04→21:48)
--- NOTE | 2018-04-01 19:46 | CP.PCM.PN ---
Subjective - Date & Time of Evaluation Date of Evaluation: 04/01/18 Time of Evaluation: 11:30 - Subjective Subjective: No increase in right knee pain, no fevers, not in distress. Objective - Vital Signs/Intake and Output Vital Signs (last 24 hours): Temp Pulse Resp BP Pulse Ox 98.1 F 69 18 119/64 96 04/01/18 14:00 04/01/18 18:10 04/01/18 14:00 04/01/18 18:10 04/01/18 14:00 - Medications Medications: Current Medications Acetaminophen (Tylenol 325mg Tab) 650 mg PO Q6H PRN PRN Reason: Pain, Mild (1-3) Atenolol (Tenormin) 25 mg PO BID SONU Last Admin: 04/01/18 18:10 Dose: 25 mg Atorvastatin Calcium (Lipitor) 20 mg PO HS SONU Digoxin (Digoxin) 0.125 mg PO DAILY SONU Famotidine (Pepcid) 40 mg PO HS SONU Furosemide (Lasix) 40 mg PO DAILY SONU Aztreonam (Azactam 1 Gm) 100 mls @ 100 mls/hr IVPB Q8 SONU; Protocol Stop: 04/07/18 22:01 Last Admin: 04/01/18 14:04 Dose: Not Given Vancomycin HCl (Vancomycin 1gm) 1 gm in 250 mls @ 167 mls/hr IVPB Q12H SONU; Protocol Last Admin: 03/31/18 22:02 Dose: 167 mls/hr Potassium Chloride (K-Dur 20 Meq Er Tab) 20 meq PO DAILY SONU - Labs Labs: 03/31/18 11:30 04/01/18 06:45 PT 24.2 SECONDS (9.4-12.5) H 04/01/18 06:45 INR 2.07 04/01/18 06:45 APTT 41.5 Seconds (25.1-36.5) H 03/31/18 11:30 - Constitutional Appears: Chronically Ill - Head Exam Head Exam: NORMAL INSPECTION - ENT Exam ENT Exam: Mucous Membranes Moist - Neck Exam Neck Exam: absent: Meningismus - Respiratory Exam Respiratory Exam: Decreased Breath Sounds - Cardiovascular Exam Cardiovascular Exam: +S1, +S2 - GI/Abdominal Exam GI & Abdominal Exam: Soft. absent: Tenderness Assessment and Plan - Assessment and Plan (Free Text) Plan: Assessment R/O right knee prosthetic knee infection CAD S/P PCI HTN atrial fibrillation osteoarthritis S/P right knee replacement Plan continue Vancomycin and Azactam; Ortho planning on debridement of knee tomorrow and will follow up OR findings and cultures; follow up blood cx will continue to monitor clinically
[2018-04-01 20:15] LABS: INR 1.44; PARTIAL THROMBOPLASTIN TIME 32.9 Seconds (25.1-36.5); PROTHROMBIN TIME 16.5 SECONDS (9.4-12.5)
[2018-04-01] MEDS: Vancomycin 1gm in NS 250ml 1 GM/250 ML BAG IVPB SCH (22:50)
[2018-04-02] MEDS: Aztreonam 1 Gm in NS 100mL 100 ML IVPB SCH ×3 (05:32→21:17)
--- NOTE | 2018-04-02 07:49 | CP.PCM.PN ---
Objective - Vital Signs/Intake and Output Vital Signs (last 24 hours): Temp Pulse Resp BP Pulse Ox 98.3 F 63 18 140/66 95 04/02/18 07:42 04/02/18 07:42 04/02/18 07:42 04/02/18 07:42 04/02/18 07:42 Intake and Output: 04/02/18 04/02/18 06:59 18:59 Intake Total 480 Balance 480 - Medications Medications: Current Medications Acetaminophen (Tylenol 325mg Tab) 650 mg PO Q6H PRN PRN Reason: Pain, Mild (1-3) Atenolol (Tenormin) 25 mg PO BID [facility] Last Admin: 04/02/18 07:32 Dose: 25 mg Atorvastatin Calcium (Lipitor) 20 mg PO HS [facility] Last Admin: 04/01/18 21:49 Dose: 20 mg Digoxin (Digoxin) 0.125 mg PO DAILY SONU Famotidine (Pepcid) 40 mg PO HS [facility] Last Admin: 04/01/18 21:49 Dose: 40 mg Furosemide (Lasix) 40 mg PO DAILY SONU Aztreonam (Azactam 1 Gm) 100 mls @ 100 mls/hr IVPB Q8 SONU; Protocol Stop: 04/07/18 22:01 Last Admin: 04/02/18 05:32 Dose: 100 mls/hr Vancomycin HCl (Vancomycin 1gm) 1 gm in 250 mls @ 167 mls/hr IVPB Q12H SONU; Protocol Last Admin: 04/01/18 22:50 Dose: 167 mls/hr Potassium Chloride (K-Dur 20 Meq Er Tab) 20 meq PO DAILY SONU - Labs Labs: 03/31/18 11:30 04/01/18 06:45 PT 16.5 SECONDS (9.4-12.5) H 04/01/18 20:03 INR 1.44 04/01/18 20:03 APTT 32.9 Seconds (25.1-36.5) 04/01/18 20:03
--- NOTE | 2018-04-02 08:11 | CP.PCM.HP ---
History of Present Illness - History of Present Illness History of Present Illness: 82 F presented to our office on Saturday03/31/18 for her first post op visit. She is now 6 weeks status post a right total knee replacement. Patient has cancelled numerous follow up appointments. Patient states she was unable to make her appointments since she was at the rehab facilities and issues with transportation. Patient states a few weeks ago she had some drainage in her knee.She was instructed weekly to follow up to be evaluated. Last week, patient returned to home and called the office over the weekend complaining of bloody drainage through a hole in her incision site. When evaluated in our office on Saturday, patient was found to have a small opening in the midline incision site with some drainage. Patient was instructed to go to the hospital and plan for an I&D. Present on Admission - Present on Admission Any Indicators Present on Admission: No History of DVT/PE: No History of Uncontrolled Diabetes: No Past Patient History - Infectious Disease Hx of Infectious Diseases: None - Tetanus Immunizations Tetanus Immunization: Unknown - Past Medical History & Family History Past Medical History?: Yes - Past Social History Smoking Status: Never Smoked - CARDIAC Hx Cardiac Disorders: Yes (A fib) Hx Hypertension: Yes - PULMONARY Hx Respiratory Disorders: Yes Hx Pneumonia: Yes - NEUROLOGICAL Hx Neurological Disorder: Yes Hx Dizziness: Yes - HEENT Hx HEENT Problems: Yes Hx Cataracts: Yes - RENAL Hx Chronic Kidney Disease: No - ENDOCRINE/METABOLIC Hx Endocrine Disorders: No - HEMATOLOGICAL/ONCOLOGICAL Hx Blood Disorders: No - INTEGUMENTARY Hx Dermatological Problems: No - MUSCULOSKELETAL/RHEUMATOLOGICAL Hx Arthritis: Yes - GASTROINTESTINAL Hx Gastrointestinal Disorders: No - GENITOURINARY/GYNECOLOGICAL Hx Genitourinary Disorders: Yes (PMB) - PSYCHIATRIC Hx Psychophysiologic Disorder: No Hx Substance Use: No - SURGICAL HISTORY Hx Surgeries: Yes - ANESTHESIA Hx Anesthesia Reactions: No Meds Allergies/Adverse Reactions: Allergies Allergy/AdvReac Type Severity Reaction Status Date / Time diphenhydramine Allergy Severe unknown Verified 02/07/18 10:08 [From Benadryl] nitroglycerin Allergy Severe ANAPHYLAXIS Verified 02/07/18 10:08 pcn Allergy Severe RASH Uncoded 02/07/18 10:08 chocolate candy AdvReac Severe HEADACHE Uncoded 02/07/18 10:08 Physical Exam - Constitutional Appears: Well, No Acute Distress - Head Exam Head Exam: ATRAUMATIC, NORMAL INSPECTION, NORMOCEPHALIC - Expanded Lower Extremities Exam Right Knee exam: erythema, swelling (On examination of the right knee, there is mild to moderate effusion. There is a 1x1cm opening gap over the midline incision site right over the patella with some serous drainage. No significant areas of tenderness to palpation. Calf and thigh are soft and nontender to palpation) Results - Vital Signs Recent Vital Signs: Last Vital Signs Temp 98.3 F 04/02/18 07:42 Pulse 63 04/02/18 07:42 Resp 18 04/02/18 07:42 BP 140/66 04/02/18 07:42 Pulse Ox 95 04/02/18 07:42 - Labs Result Diagrams: 03/31/18 11:30 04/01/18 06:45 Labs: Laboratory Results - last 24 hr 03/31/18 04/01/18 12:45 20:03 PT 16.5 H INR 1.44 APTT 32.9 Crossmatch See Detail Assessment & Plan (1) Infection of right knee Assessment and Plan: NPO T&C Patient medically optimized for OR for right knee I&D with polyexchange. Risks, benefits and alternatives were discussed and patient verbalizes understanding and would like to proceed. Status: Acute
[2018-04-02] MEDS ORDERED: Propofol 10 mg/ml Inj (20 ML) ONE (08:14)
[2018-04-02] MEDS ORDERED: Succinylcholine 200 mg/10 ml Inj IV ONE (08:15)
[2018-04-02] MEDS ORDERED: Bupivacaine 0.5% Inj(30mL) ONE (08:18)
[2018-04-02] MEDS ORDERED: Sevoflurane - Inhalation Anesthetic Liq (250 ml) ONE (08:42)
[2018-04-02] MEDS ORDERED: Vancomycin 1 g Inj ONE ×2 (09:14→09:20)
[2018-04-02] MEDS ORDERED: Vancomycin 1gm in NS 250ml 1 GM/250 ML BAG IVPB STA (09:19)
[2018-04-02] MEDS ORDERED: HYDROmorphone 0.5 mg/0.5 ml ISec IVP PRN (11:17)
[2018-04-02] MEDS ORDERED: HYDROmorphone 0.5 mg/0.5 ml ISec IVP ONE (11:20)
[2018-04-02] MEDS ORDERED: HYDROmorphone 0.5 mg/0.5 ml ISec ONE ×2 (11:20→11:48)
[2018-04-02] MEDS ORDERED: oxyCODONE 5 mg Immediate Release Tab PO PRN (11:26)
[2018-04-02] MEDS ORDERED: HYDROmorphone 1 mg/ml ISec IVP PRN (11:27)
[2018-04-02] MEDS ORDERED: Lactated Ringer's 1,000 ML IV SCH (11:30)
--- NOTE | 2018-04-02 13:28 | RAD ---
Date of service: 04/02/2018 PROCEDURE: Right Knee Radiographs. HISTORY: patient in PACU COMPARISON: None. FINDINGS: BONES: Postoperative findings status post right TKA. JOINTS: Normal. No osteoarthritis. JOINT EFFUSION: None. OTHER FINDINGS: None. IMPRESSION: Satisfactory postoperative status.
[2018-04-02] MEDS: Vancomycin 1gm in NS 250ml 1 GM/250 ML BAG IVPB SCH ×2 (14:25→22:58)
[2018-04-02] MEDS: Digoxin 125 mcg (0.125 mg) Tab PO SCH (15:00)
[2018-04-02] MEDS: Potassium Chloride 20 mEq ER Tab PO SCH (15:01)
--- NOTE | 2018-04-02 15:17 | OP ---
PROCEDURE DATE: 04/02/2018 PREOPERATIVE DIAGNOSIS: Right knee surgical site infection status post right total knee arthroplasty. POSTOPERATIVE DIAGNOSIS: Right knee surgical site infection with postoperative hematoma. PROCEDURE: Right knee irrigation and debridement with evacuation of hematoma and poly exchange. SURGEON: Hernan Blevins MD. FLAKE MILLER HELPER: Dr. Watson was assisted by Samantha Bazzi, physician optometrist assistant. Ms. Bazzi was scrubbed and present throughout the entire case and assisted with patient positioning, retraction and wound closure. TYPE OF ANESTHESIA: General. ESTIMATED BLOOD LOSS: 150 mL. COMPLICATIONS: None. INDICATIONS FOR PROCEDURE: This is an 82-year-old female who approximately 6 weeks ago underwent a right total knee arthroplasty. Patient postoperatively did well, was transferred to a rehab facility. She did not return to the office for followup until 2 days ago with complaints of bleeding from her incision. Patient is on chronic Coumadin and came in with an INR of 3.8. At this point, recommendation is for right knee irrigation and debridement with poly exchange. The risks and benefits were discussed with both the patient as well as with both her daughters, Ruby and Lena, including the possibility of deep chronic infection necessitating explantation of the implant with antibiotic spacer. This risk as well as reaccumulation of hematoma postoperative were discussed and the patient decided to proceed with the surgery. Informed consent was obtained. DESCRIPTION OF PROCEDURE: After surgical site was signed and verified in the preoperative holding area, the patient was taken to the operating room and placed supine on the operating room table. After administration of general anesthesia, tourniquet was placed about the right thigh. Venodyne boot was placed on the nonoperative extremity. Care was taken to make sure bony prominences and nerves were well padded and protected and the right lower extremity was prepped and draped in the usual sterile fashion. Right lower extremity was exsanguinated and tourniquet was inflated. The previous incision was re-incised and patient is noted to have approximately 1.5 x 1 cm area along the junction of the proximal distal third and middle third of her incision where there was an opening, some hematoma could easily be expressed from this area. At this point, some cultures, aerobic and anaerobic cultures, were taken as well as for AFB. No gross purulence was appreciated, but significant amount of hematoma was appreciated and this was all evacuated. At this point, a medial parapatellar arthrotomy was performed and the knee joint was exposed. The previous poly was removed and again the wound was inspected. Tissue cultures from medial gutter as well as posterior capsule were taken for culture. The wound was inspected for any nonviable loose tissue and all tissue was sharply debrided. Again, no gross purulence was appreciated. At this point, the wound was irrigated with 12 L of antibiotic saline solution. Once this was done, the surfaces were dried and a new poly bearing was inserted and locked into place with cross pin. The knee was taken through range of motion and found to be stable and stable to varus and valgus distress. At this point, arthrotomy was then closed using interrupted #1 Vicryl suture, subcutaneous tissue was closed using 0 Vicryl and 2-0 Vicryl suture and the skin was closed using 3-0 Nylon. A DUDLEY incisional wound VAC dressing was applied and the right lower extremity was placed in a knee immobilizer. Patient was awakened from the procedure and taken to the recovery room in stable condition. Hernan Watson MD
--- NOTE | 2018-04-02 22:03 | PN ---
DATE: 04/02/2018 SUBJECTIVE: The patient is in bed, was seen earlier this morning. No events. The patient states the patient had an uneventful night. PHYSICAL EXAMINATION: VITAL SIGNS: Temperature of 97, blood pressure is 169/60, respiratory rate of 18, heart rate of 60. HEENT: Examination of HEENT is unremarkable. NECK: Supple. LUNGS: Have decreased breath sounds. HEART: Normal S1 and S2. ABDOMEN: Soft. LABORATORY DATA: Laboratory examination reveals the white count is 8.9. Coagulation is noted. Chemistries noted. Microbiology revealed the blood cultures are negative. The right knee cultures are pending. Review of orders reveals the patient to have aztreonam and vancomycin. ASSESSMENT AND PLAN: An 82-year-old female with must rule out right knee prosthetic knee infection in a patient with coronary artery disease, status post percutaneous coronary intervention; hypertension; atrial fibrillation. On vancomycin and Azactam. The patient is for debridement for her knee today and waiting for OR cultures and workup. Dominick Simeon MD
[2018-04-03] MEDS: Aztreonam 1 Gm in NS 100mL 100 ML IVPB SCH ×3 (05:51→21:37)
[2018-04-03 07:25] LABS: BASO # 0.04 K/mm3 (0.0-2.0); BASO % 0.5 % (0.0-3.0); EOS # 0.4 (0.0-0.7); EOS % 4.6 % (1.5-5.0); GRAN # 5.73 (1.4-6.5); GRAN % 71.6 % (50.0-68.0); HEMOGLOBIN 9.3 g/dL (12.0-16.0); LYMPH # 1.4 (1.2-3.4); LYMPH % 17.1 % (22.0-35.0); MEAN CELL VOLUME 86.1 fl (80.0-105.0); MEAN CORPUSCULAR HGB CONC 31.3 g/dl (31.0-37.0); MEAN PLATELET VOLUME 10.4 fl (7.0-11.0); MONO # 0.5 (0.1-0.6); MONO % 6.2 % (1.0-6.0); RBC 3.45 10^6/uL (3.5-6.1)
[2018-04-03 07:41] LABS: BLOOD UREA NITROGEN 12 mg/dL (7-21); CALCIUM 8.2 mg/dL (8.4-10.5); GFR NON-AFRICAN AMERICAN > 60
--- NOTE | 2018-04-03 10:29 | CP.PCM.PN ---
<Maru Boothe - Last Filed: 04/03/18 17:16> Subjective - Date & Time of Evaluation Date of Evaluation: 04/03/18 Time of Evaluation: 07:00 - Subjective Subjective: Medicine Progress Note for Jose Manuel London PGY3 Patient seen and examined at bedside. There were no acute overnight events as per nursing staff. Patient had debridement of knee yesterday. She complained of some ankle pain this AM that is sharp and does not radiate. She denies any chest pain, shortness of breath, nausea/vomiting/diarrhea, fever/chills, numbness or tingling. Objective - Vital Signs/Intake and Output Vital Signs (last 24 hours): Temp Pulse Resp BP Pulse Ox 98.7 F 64 18 128/57 L 97 04/03/18 06:00 04/03/18 06:00 04/03/18 06:00 04/03/18 06:00 04/03/18 06:00 Intake and Output: 04/03/18 04/03/18 06:59 18:59 Intake Total 1340 Balance 1340 - Medications Medications: Current Medications Acetaminophen (Tylenol 325mg Tab) 650 mg PO Q6 [facility] Last Admin: 04/03/18 05:51 Dose: 650 mg Atenolol (Tenormin) 25 mg PO BID [facility] Last Admin: 04/02/18 19:14 Dose: 25 mg Atorvastatin Calcium (Lipitor) 20 mg PO [facility] Last Admin: 04/02/18 21:38 Dose: 20 mg Digoxin (Digoxin) 0.125 mg PO DAILY [facility] Last Admin: 04/02/18 15:00 Dose: 0.125 mg Docusate Sodium (Colace) 100 mg PO BID [facility] Last Admin: 04/02/18 19:07 Dose: 100 mg Famotidine (Pepcid) 40 mg PO [facility] Last Admin: 04/02/18 21:38 Dose: 40 mg Furosemide (Lasix) 40 mg PO DAILY [facility] Last Admin: 04/02/18 15:01 Dose: 40 mg Hydromorphone HCl (Dilaudid) 0.5 mg IVP Q15M PRN PRN Reason: Pain, moderate (4-7) Hydromorphone HCl (Dilaudid) 0.5 mg IVP Q3H PRN PRN Reason: Pain, severe (8-10) Aztreonam (Azactam 1 Gm) 100 mls @ 100 mls/hr IVPB Q8 [facility]; Protocol Stop: 04/07/18 22:01 Last Admin: 04/03/18 05:51 Dose: 100 mls/hr Vancomycin HCl (Vancomycin 1gm) 1 gm in 250 mls @ 167 mls/hr IVPB Q12H [facility]; Protocol Last Admin: 04/02/18 22:58 Dose: 167 mls/hr Metoclopramide HCl (Reglan) 10 mg IV ONCE PRN PRN Reason: Nausea/Vomiting Oxycodone HCl (Oxycodone Immediate Release Tab) 5 mg PO Q4H PRN PRN Reason: Pain, Mild (1-3) Oxycodone HCl (Oxycodone Immediate Release Tab) 10 mg PO Q4H PRN PRN Reason: Pain, moderate (4-7) Polyethylene Glycol (Miralax) 17 gm PO BID [facility] Potassium Chloride (K-Dur 20 Meq Er Tab) 20 meq PO DAILY [facility] Last Admin: 04/02/18 15:01 Dose: 20 meq Sennosides (Senokot Tab) 17.2 mg PO HS [facility] Last Admin: 04/02/18 21:38 Dose: 17.2 mg - Labs Labs: 04/03/18 07:00 04/03/18 07:00 PT 16.5 SECONDS (9.4-12.5) H 04/01/18 20:03 INR 1.44 04/01/18 20:03 APTT 32.9 Seconds (25.1-36.5) 04/01/18 20:03 - Constitutional Appears: No Acute Distress - Head Exam Head Exam: ATRAUMATIC, NORMAL INSPECTION, NORMOCEPHALIC - Eye Exam Eye Exam: Normal appearance, PERRL Pupil Exam: NORMAL ACCOMODATION - ENT Exam ENT Exam: Mucous Membranes Moist - Respiratory Exam Respiratory Exam: Clear to Ausculation Bilateral, NORMAL BREATHING PATTERN. absent: Rales, Rhonchi, Wheezes - Cardiovascular Exam Cardiovascular Exam: REGULAR RHYTHM, +S1, +S2. absent: Gallop, Rubs, Murmur - GI/Abdominal Exam GI & Abdominal Exam: Soft, Normal Bowel Sounds. absent: Rigid, Tenderness, Mass, Rebound - Extremities Exam Extremities Exam: Normal Capillary Refill. 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 R knee infection s/p R TKA - s/p debridement POD #1 2. A.fib - rate controlled 3. HTN 4. CAD Plan: Continue physical therapy. Will restart Coumadin and monitor INR. Pain is controlled and is on stool softener. Continue Digoxin, Lipitor, Lasix, Atenolol and ASA. Patient is awaiting rehab placement. Knee cultures are pending. Case seen, discussed and reviewed with Dr. Waller. Jose Manuel Boothe PGY3 <Ajay Waller S - Last Filed: 04/03/18 18:26> Objective - Vital Signs/Intake and Output Vital Signs (last 24 hours): Temp Pulse Resp BP Pulse Ox 98.4 F 73 18 132/72 100 04/03/18 14:00 04/03/18 17:17 04/03/18 14:00 04/03/18 17:17 04/03/18 14:00 Intake and Output: 04/03/18 04/03/18 06:59 18:59 Intake Total 1340 960 Balance 1340 960 - Medications Medications: Current Medications Acetaminophen (Tylenol 325mg Tab) 650 mg PO Q6 [facility] Last Admin: 04/03/18 17:19 Dose: 650 mg Aspirin (Ecotrin) 81 mg PO DAILY [facility] Atenolol (Tenormin) 25 mg PO BID [facility] Last Admin: 04/03/18 17:17 Dose: 25 mg Atorvastatin Calcium (Lipitor) 20 mg PO HS [facility] Last Admin: 04/02/18 21:38 Dose: 20 mg Digoxin (Digoxin) 0.125 mg PO DAILY [facility] Last Admin: 04/03/18 10:32 Dose: 0.125 mg Docusate Sodium (Colace) 100 mg PO BID [facility] Last Admin: 04/03/18 17:15 Dose: 100 mg Enoxaparin Sodium (Lovenox) 70 mg SC Q12H [facility]; Protocol Famotidine (Pepcid) 40 mg PO HS [facility] Last Admin: 04/02/18 21:38 Dose: 40 mg Furosemide (Lasix) 40 mg PO DAILY [facility] Last Admin: 04/03/18 10:32 Dose: 40 mg Hydromorphone HCl (Dilaudid) 0.5 mg IVP Q3H PRN PRN Reason: Pain, severe (8-10) Vancomycin HCl (Vancomycin 1gm) 1 gm in 250 mls @ 167 mls/hr IVPB Q12H [facility]; Protocol Last Admin: 04/03/18 10:31 Dose: 167 mls/hr Aztreonam (Azactam 1 Gm) 100 mls @ 100 mls/hr IVPB Q8 [facility]; Protocol Stop: 04/07/18 22:01 Last Admin: 04/03/18 13:28 Dose: 100 mls/hr Metoclopramide HCl (Reglan) 10 mg IV ONCE PRN PRN Reason: Nausea/Vomiting Oxycodone HCl (Oxycodone Immediate Release Tab) 5 mg PO Q4H PRN PRN Reason: Pain, Mild (1-3) Last Admin: 04/03/18 10:33 Dose: 5 mg Oxycodone HCl (Oxycodone Immediate Release Tab) 10 mg PO Q4H PRN PRN Reason: Pain, moderate (4-7) Polyethylene Glycol (Miralax) 17 gm PO BID [facility] Last Admin: 04/03/18 17:16 Dose: 17 gm Potassium Chloride (K-Dur 20 Meq Er Tab) 20 meq PO DAILY [facility] Last Admin: 04/03/18 10:32 Dose: 20 meq Sennosides (Senokot Tab) 17.2 mg PO HS [facility] Last Admin: 04/02/18 21:38 Dose: 17.2 mg Warfarin Sodium (Coumadin) 2.5 mg PO 1800 [facility] Last Admin: 04/03/18 17:15 Dose: 2.5 mg Warfarin Sodium (Coumadin) 1 mg PO 1800 [facility] Last Admin: 04/03/18 17:15 Dose: 1 mg - Labs Labs: 04/03/18 07:00 04/03/18 07:00 PT 16.5 SECONDS (9.4-12.5) H 04/01/18 20:03 INR 1.44 04/01/18 20:03 APTT 32.9 Seconds (25.1-36.5) 04/01/18 20:03 Assessment and Plan - Assessment and Plan (Free Text) Plan: Pt seen and examined. I have reviewed the note of the medical scheduler and agree with it. I have discussed the assessment and plan with the resident. I have reviewed the patient's labs and medications. Pt with pain that is controlled. Will restart coumadin. Spoke to daughter and they are interested in TCU for rehab. She will continue with Lipitor.
[2018-04-03] MEDS: Vancomycin 1gm in NS 250ml 1 GM/250 ML BAG IVPB SCH ×2 (10:31→22:47)
[2018-04-03] MEDS: Potassium Chloride 20 mEq ER Tab PO SCH (10:32)
[2018-04-03] MEDS: Digoxin 125 mcg (0.125 mg) Tab PO SCH (10:32)
[2018-04-03] MEDS: POLYETHYLENE GLYCOL 3350 17 GM/Dose PACKET PO SCH ×2 (10:33→17:16)
--- NOTE | 2018-04-03 10:36 | CP.PCM.PN ---
Subjective - Date & Time of Evaluation Date of Evaluation: 04/03/18 Time of Evaluation: 10:31 - Subjective Subjective: Patient seen and examined. Alert and awake. Sitting up in bed. Denies any significant pain. Admits to calf pain VSS WBC 8.0 hgb 9.3 R knee: dressings dry and intact. Knee immobilizer and wound vac on. Calves are soft but tender to palpation. Thigh soft and nontender. NVI distally POD#1 s/p I&D with polyexchange Venous doppler US ordered Cont NWB at this time Cont knee immbolizer Cont incentive spirometer Cont IV abx Pending cultures Discharge planning to rehab Dressing changes tomorrow Objective - Vital Signs/Intake and Output Vital Signs (last 24 hours): Temp Pulse Resp BP Pulse Ox 98.7 F 64 18 128/57 L 97 04/03/18 06:00 04/03/18 06:00 04/03/18 06:00 04/03/18 06:00 04/03/18 06:00 Intake and Output: 04/03/18 04/03/18 06:59 18:59 Intake Total 1340 Balance 1340 - Medications Medications: Current Medications Acetaminophen (Tylenol 325mg Tab) 650 mg PO Q6 [facility] Last Admin: 04/03/18 05:51 Dose: 650 mg Atenolol (Tenormin) 25 mg PO BID [facility] Last Admin: 04/02/18 19:14 Dose: 25 mg Atorvastatin Calcium (Lipitor) 20 mg PO [facility] Last Admin: 04/02/18 21:38 Dose: 20 mg Digoxin (Digoxin) 0.125 mg PO DAILY [facility] Last Admin: 04/02/18 15:00 Dose: 0.125 mg Docusate Sodium (Colace) 100 mg PO BID [facility] Last Admin: 04/02/18 19:07 Dose: 100 mg Famotidine (Pepcid) 40 mg PO HS [facility] Last Admin: 04/02/18 21:38 Dose: 40 mg Furosemide (Lasix) 40 mg PO DAILY [facility] Last Admin: 04/02/18 15:01 Dose: 40 mg Hydromorphone HCl (Dilaudid) 0.5 mg IVP Q15M PRN PRN Reason: Pain, moderate (4-7) Hydromorphone HCl (Dilaudid) 0.5 mg IVP Q3H PRN PRN Reason: Pain, severe (8-10) Aztreonam (Azactam 1 Gm) 100 mls @ 100 mls/hr IVPB Q8 [facility]; Protocol Stop: 04/07/18 22:01 Last Admin: 04/03/18 05:51 Dose: 100 mls/hr Vancomycin HCl (Vancomycin 1gm) 1 gm in 250 mls @ 167 mls/hr IVPB Q12H [facility]; Protocol Last Admin: 04/02/18 22:58 Dose: 167 mls/hr Metoclopramide HCl (Reglan) 10 mg IV ONCE PRN PRN Reason: Nausea/Vomiting Oxycodone HCl (Oxycodone Immediate Release Tab) 5 mg PO Q4H PRN PRN Reason: Pain, Mild (1-3) Oxycodone HCl (Oxycodone Immediate Release Tab) 10 mg PO Q4H PRN PRN Reason: Pain, moderate (4-7) Polyethylene Glycol (Miralax) 17 gm PO BID [facility] Potassium Chloride (K-Dur 20 Meq Er Tab) 20 meq PO DAILY [facility] Last Admin: 04/02/18 15:01 Dose: 20 meq Sennosides (Senokot Tab) 17.2 mg PO HS [facility] Last Admin: 04/02/18 21:38 Dose: 17.2 mg - Labs Labs: 04/03/18 07:00 04/03/18 07:00 PT 16.5 SECONDS (9.4-12.5) H 04/01/18 20:03 INR 1.44 04/01/18 20:03 APTT 32.9 Seconds (25.1-36.5) 04/01/18 20:03 Assessment and Plan (1) Infection of right knee Status: Acute
--- NOTE | 2018-04-03 12:23 | US ---
HISTORY: Leg pain and swelling. Evaluate for DVT PHYSICIAN(S): Satnam Baltazar MD. TECHNIQUE: Duplex sonography and color-flow Doppler with graded compression were used to evaluate the deep venous systems of both lower extremities. FINDINGS: The visualized deep venous systems of both lower extremities are sonographically normal and compressible. Normal wave forms and augmentation are seen. There is no sonographic evidence for deep venous thrombosis in the visualized segments of both lower extremities. IMPRESSION: No sonographic evidence for deep venous thrombosis in the visualized segments of both lower extremities.
[2018-04-03] MEDS ORDERED: WARFARIN 3.5 MG PO SCH (16:15)
[2018-04-03] MEDS: Enoxaparin 80 mg Syringe SC SCH (21:37)
--- NOTE | 2018-04-04 00:21 | PN ---
DATE: 04/03/2018 SUBJECTIVE: The patient is in bed, in no acute distress, nontoxic. Was seen earlier this morning in 571, bed 2. PHYSICAL EXAMINATION VITAL SIGNS: Temperature is 98, blood pressure is 130/50, respiratory rate of 18. HEENT: Examination of HEENT is unremarkable. NECK: Supple. LUNGS: Have decreased breath sounds. HEART: Normal S1, S2. ABDOMEN: Soft. LABORATORY DATA: Laboratory examination reveals a white count of 8000, hemoglobin of 9, platelets are 145. Chemistries are noted. BUN of 12, creatinine of 0.7. Microbiology is noted. ASSESSMENT AND PLAN: This is an 82-year-old female with must rule out right knee prosthetic knee infection with coronary artery disease, status post percutaneous coronary intervention, hypertension, atrial fibrillation, on vancomycin and Azactam. Pending the culture results. Aztreonam and vancomycin are . Dominick Simeon MD
[2018-04-04] MEDS: Aztreonam 1 Gm in NS 100mL 100 ML IVPB SCH ×3 (06:50→21:30)
[2018-04-04 07:17] LABS: BASO # 0.02 K/mm3 (0.0-2.0); BASO % 0.3 % (0.0-3.0); EOS # 0.4 (0.0-0.7); GRAN # 4.9 (1.4-6.5); GRAN % 64.4 % (50.0-68.0); HEMOGLOBIN 9.1 g/dL (12.0-16.0); LYMPH # 1.5 (1.2-3.4); LYMPH % 20.2 % (22.0-35.0); MEAN CELL VOLUME 85.6 fl (80.0-105.0); MEAN CORPUSCULAR HEMOGLOBIN 26.8 pg (25.0-35.0); MEAN CORPUSCULAR HGB CONC 31.3 g/dl (31.0-37.0); MEAN PLATELET VOLUME 10.7 fl (7.0-11.0); MONO # 0.8 (0.1-0.6); MONO % 10.1 % (1.0-6.0); RBC 3.4 10^6/uL (3.5-6.1); RED CELL DISTRIBUTION WIDTH 17.1 % (11.5-14.5); WHITE BLOOD COUNT 7.6 10^3/ul (4.5-11.0)
[2018-04-04 07:21] LABS: INR 1.37; PROTHROMBIN TIME 15.9 SECONDS (9.4-12.5)
[2018-04-04 07:30] LABS: BLOOD UREA NITROGEN 15 mg/dL (7-21); CALCIUM 8.3 mg/dL (8.4-10.5); GFR NON-AFRICAN AMERICAN > 60
[2018-04-04] MEDS: Vancomycin 1gm in NS 250ml 1 GM/250 ML BAG IVPB SCH (09:07)
[2018-04-04] MEDS: POLYETHYLENE GLYCOL 3350 17 GM/Dose PACKET PO SCH ×2 (09:08→19:03)
[2018-04-04] MEDS: Enoxaparin 80 mg Syringe SC SCH ×2 (09:09→21:57)
[2018-04-04] MEDS: Potassium Chloride 20 mEq ER Tab PO SCH (09:11)
[2018-04-04] MEDS: Digoxin 125 mcg (0.125 mg) Tab PO SCH (09:11)
[2018-04-04] MEDS: Linezolid 600 mg in D5W 300 ml 600 MG/300 ML BAG IVPB SCH (10:36)
--- NOTE | 2018-04-04 11:57 | PN ---
DATE: 04/04/2018 SUBJECTIVE: The patient has no complaints of any chest pain. No shortness of breath. No headaches or dizziness. PHYSICAL EXAMINATION: VITAL SIGNS: Temperature is 97.9, pulse of 76, blood pressure is 150/85, respirations 20. GENERAL: The patient is lying in bed, flat, comfortable. HEENT: No oral lesion. Anicteric sclerae. Moist mucosa. NECK: No JVD, adenopathy, or thyromegaly. CARDIOVASCULAR: S1 and S2, regular. No murmurs, rubs, or gallops. LUNGS: Clear to auscultation bilaterally. No wheeze, rales, or rhonchi. ABDOMEN: Bowel sounds are positive, soft, nontender and nondistended. EXTREMITIES: No cyanosis, clubbing or edema. LABORATORY DATA: White count of 7.6, hemoglobin 9.1. Creatinine is 0.6. ASSESSMENT: 1. Right knee infection, status post right total knee replacement. 2. Atrial fibrillation, stable, on Coumadin. 3. Hypertension. 4. Coronary artery disease. PLAN: The patient is currently comfortable. Pain is controlled. The patient has been started on Coumadin. She is on digoxin daily. She is going to continue with Lasix. She is on Lipitor for dyslipidemia. She is on Lovenox for DVT prophylaxis until her Coumadin is therapeutic. The patient is on Pepcid. She is on a regular diet. She may go to TCU today. We will see if she gets accepted. Ajay Waller MD
[2018-04-04 17:26] LABS: URINE BILIRUBIN NEGATIVE (NEGATIVE); URINE BLOOD NEGATIVE (NEGATIVE); URINE GLUCOSE (UA) NEGATIVE (NEGATIVE); URINE LEUKOCYTE ESTERASE SMALL Leu/uL (NEGATIVE); URINE PROTEIN NEGATIVE mg/dL (<30 mg/dL); URINE UROBILINOGEN 0.2 E.U./dL (<1 E.U./dL)
[2018-04-04 17:27] LABS: URINE APPEARANCE CLEAR (CLEAR); URINE COLOR LIGHT YELLOW (YELLOW)
[2018-04-04 17:42] LABS: URINE BACTERIA TRACE (NEG); URINE EPITHELIAL CELLS 0 - 2 /hpf (0-5); URINE HYALINE CAST 0 - 2 /hpf; URINE RBC 0 - 2 /hpf (0-2); URINE WBC 0 - 2 /hpf (0-6)
--- NOTE | 2018-04-04 18:09 | CP.PCM.PN ---
Subjective - Date & Time of Evaluation Date of Evaluation: 04/03/18 Time of Evaluation: 11:15 - Subjective Subjective: Afebrile, not in distress, no fevers. No increased pain on the right knee. Objective - Vital Signs/Intake and Output Vital Signs (last 24 hours): Temp Pulse Resp BP Pulse Ox 98.4 F 73 18 132/72 100 04/03/18 14:00 04/03/18 17:17 04/03/18 14:00 04/03/18 17:17 04/03/18 14:00 Intake and Output: 04/03/18 04/04/18 18:59 06:59 Intake Total 960 Balance 960 - Medications Medications: Current Medications Acetaminophen (Tylenol 325mg Tab) 650 mg PO Q6 [facility] Last Admin: 04/03/18 17:19 Dose: 650 mg Aspirin (Ecotrin) 81 mg PO DAILY [facility] Atenolol (Tenormin) 25 mg PO BID [facility] Last Admin: 04/03/18 17:17 Dose: 25 mg Atorvastatin Calcium (Lipitor) 20 mg PO HS [facility] Last Admin: 04/02/18 21:38 Dose: 20 mg Digoxin (Digoxin) 0.125 mg PO DAILY [facility] Last Admin: 04/03/18 10:32 Dose: 0.125 mg Docusate Sodium (Colace) 100 mg PO BID [facility] Last Admin: 04/03/18 17:15 Dose: 100 mg Enoxaparin Sodium (Lovenox) 70 mg SC Q12H [facility]; Protocol Famotidine (Pepcid) 40 mg PO HS [facility] Last Admin: 04/02/18 21:38 Dose: 40 mg Furosemide (Lasix) 40 mg PO DAILY [facility] Last Admin: 04/03/18 10:32 Dose: 40 mg Hydromorphone HCl (Dilaudid) 0.5 mg IVP Q3H PRN PRN Reason: Pain, severe (8-10) Vancomycin HCl (Vancomycin 1gm) 1 gm in 250 mls @ 167 mls/hr IVPB Q12H [facility]; Protocol Last Admin: 04/03/18 10:31 Dose: 167 mls/hr Aztreonam (Azactam 1 Gm) 100 mls @ 100 mls/hr IVPB Q8 [facility]; Protocol Stop: 04/07/18 22:01 Last Admin: 04/03/18 13:28 Dose: 100 mls/hr Metoclopramide HCl (Reglan) 10 mg IV ONCE PRN PRN Reason: Nausea/Vomiting Oxycodone HCl (Oxycodone Immediate Release Tab) 5 mg PO Q4H PRN PRN Reason: Pain, Mild (1-3) Last Admin: 04/03/18 10:33 Dose: 5 mg Oxycodone HCl (Oxycodone Immediate Release Tab) 10 mg PO Q4H PRN PRN Reason: Pain, moderate (4-7) Polyethylene Glycol (Miralax) 17 gm PO BID [facility] Last Admin: 04/03/18 17:16 Dose: 17 gm Potassium Chloride (K-Dur 20 Meq Er Tab) 20 meq PO DAILY [facility] Last Admin: 04/03/18 10:32 Dose: 20 meq Sennosides (Senokot Tab) 17.2 mg PO HS [facility] Last Admin: 04/02/18 21:38 Dose: 17.2 mg Warfarin Sodium (Coumadin) 2.5 mg PO 1800 [facility] Last Admin: 04/03/18 17:15 Dose: 2.5 mg Warfarin Sodium (Coumadin) 1 mg PO 1800 [facility] Last Admin: 04/03/18 17:15 Dose: 1 mg - Labs Labs: 04/03/18 07:00 04/03/18 07:00 PT 16.5 SECONDS (9.4-12.5) H 04/01/18 20:03 INR 1.44 04/01/18 20:03 APTT 32.9 Seconds (25.1-36.5) 04/01/18 20:03 - Constitutional Appears: Chronically Ill - Head Exam Head Exam: NORMAL INSPECTION - ENT Exam ENT Exam: Mucous Membranes Moist - Neck Exam Neck Exam: absent: Meningismus - Respiratory Exam Respiratory Exam: Decreased Breath Sounds - Cardiovascular Exam Cardiovascular Exam: +S1, +S2 - GI/Abdominal Exam GI & Abdominal Exam: Soft. 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 Watson - will need prolonged antibiotics - will discuss again with h im regarding further plans on the prosthesis if all cultures are positive
[2018-04-05] MEDS: Aztreonam 1 Gm in NS 100mL 100 ML IVPB SCH (05:53)
[2018-04-05 08:55] LABS: BASO # 0.03 K/mm3 (0.0-2.0); BASO % 0.4 % (0.0-3.0); EOS # 0.4 (0.0-0.7); EOS % 4.9 % (1.5-5.0); GRAN # 5.34 (1.4-6.5); GRAN % 70.9 % (50.0-68.0); HEMOGLOBIN 8.5 g/dL (12.0-16.0); LYMPH # 1.1 (1.2-3.4); LYMPH % 14.6 % (22.0-35.0); MEAN CELL VOLUME 85.1 fl (80.0-105.0); MEAN CORPUSCULAR HGB CONC 31.7 g/dl (31.0-37.0); MEAN PLATELET VOLUME 10.8 fl (7.0-11.0); MONO # 0.7 (0.1-0.6); MONO % 9.2 % (1.0-6.0); RBC 3.15 10^6/uL (3.5-6.1); WHITE BLOOD COUNT 7.5 10^3/ul (4.5-11.0)
[2018-04-05 09:07] LABS: BLOOD UREA NITROGEN 14 mg/dL (7-21); CALCIUM 8.3 mg/dL (8.4-10.5); GFR NON-AFRICAN AMERICAN > 60; INR 1.28; PROTHROMBIN TIME 14.8 SECONDS (9.4-12.5)
[2018-04-05] MEDS: Potassium Chloride 20 mEq ER Tab PO SCH (09:36)
[2018-04-05] MEDS: POLYETHYLENE GLYCOL 3350 17 GM/Dose PACKET PO SCH ×3 (09:36→17:54)
[2018-04-05] MEDS: Linezolid 600 mg in D5W 300 ml 600 MG/300 ML BAG IVPB SCH ×2 (09:36→23:21)
[2018-04-05] MEDS: Digoxin 125 mcg (0.125 mg) Tab PO SCH (09:37)
[2018-04-05] MEDS: Enoxaparin 80 mg Syringe SC SCH ×2 (09:48→21:43)
[2018-04-05] MEDS: oxyCODONE 10 mg Immediate Release Tab PO PRN ×2 (13:16→17:54)
--- NOTE | 2018-04-05 14:08 | CP.PCM.PN ---
Subjective - Date & Time of Evaluation Date of Evaluation: 04/05/18 Time of Evaluation: 13:15 - Subjective Subjective: Still with right knee pain, no fevers, has some nausea but no vomiting, no chest pain, no diarrhea. Objective - Vital Signs/Intake and Output Vital Signs (last 24 hours): Temp Pulse Resp BP Pulse Ox 98.4 F 77 18 155/67 H 97 04/05/18 06:00 04/05/18 09:37 04/05/18 06:00 04/05/18 09:37 04/05/18 06:00 Intake and Output: 04/05/18 04/05/18 06:59 18:59 Intake Total 600 Balance 600 - Medications Medications: Current Medications Acetaminophen (Tylenol 325mg Tab) 650 mg PO Q6 [facility] Last Admin: 04/05/18 05:52 Dose: 650 mg Aspirin (Ecotrin) 81 mg PO DAILY [facility] Last Admin: 04/05/18 09:37 Dose: 81 mg Atenolol (Tenormin) 25 mg PO BID [facility] Last Admin: 04/05/18 09:37 Dose: 25 mg Atorvastatin Calcium (Lipitor) 20 mg PO [facility] Last Admin: 04/04/18 21:57 Dose: 20 mg Digoxin (Digoxin) 0.125 mg PO DAILY [facility] Last Admin: 04/05/18 09:37 Dose: 0.125 mg Docusate Sodium (Colace) 100 mg PO BID [facility] Last Admin: 04/05/18 09:37 Dose: 100 mg Enoxaparin Sodium (Lovenox) 70 mg SC Q12H [facility]; Protocol Last Admin: 04/05/18 09:48 Dose: 70 mg Famotidine (Pepcid) 40 mg PO [facility] Last Admin: 04/04/18 21:58 Dose: 40 mg Furosemide (Lasix) 40 mg PO DAILY [facility] Last Admin: 04/05/18 09:37 Dose: 40 mg Hydromorphone HCl (Dilaudid) 0.5 mg IVP Q3H PRN PRN Reason: Pain, severe (8-10) Aztreonam (Azactam 1 Gm) 100 mls @ 100 mls/hr IVPB Q8 [facility]; Protocol Stop: 04/07/18 22:01 Last Admin: 04/05/18 05:53 Dose: 100 mls/hr Linezolid (Zyvox 600mg/300ml D5w) 600 mg in 300 mls @ 200 mls/hr IVPB Q12 [facility]; Protocol Stop: 05/02/18 10:31 Last Admin: 04/05/18 09:36 Dose: 200 mls/hr Potassium Chloride (Potassium Chloride 10 Meq/100 Ml) 10 meq in 100 mls @ 50 mls/hr IVPB Q2H [facility] Stop: 04/05/18 13:59 Oxycodone HCl (Oxycodone Immediate Release Tab) 5 mg PO Q4H PRN PRN Reason: Pain, Mild (1-3) Last Admin: 04/03/18 10:33 Dose: 5 mg Oxycodone HCl (Oxycodone Immediate Release Tab) 10 mg PO Q4H PRN PRN Reason: Pain, moderate (4-7) Polyethylene Glycol (Miralax) 17 gm PO BID [facility] Last Admin: 04/05/18 09:36 Dose: 17 gm Potassium Chloride (K-Dur 20 Meq Er Tab) 20 meq PO DAILY [facility] Last Admin: 04/05/18 09:36 Dose: 20 meq Sennosides (Senokot Tab) 17.2 mg PO HS [facility] Last Admin: 04/04/18 21:58 Dose: 17.2 mg Warfarin Sodium (Coumadin) 1 mg PO 1800 [facility] Last Admin: 04/04/18 19:03 Dose: 1 mg Warfarin Sodium (Coumadin) 5 mg PO 1800 [facility] - Labs Labs: 04/05/18 07:00 04/05/18 07:00 PT 14.8 SECONDS (9.4-12.5) H 04/05/18 07:00 INR 1.28 04/05/18 07:00 APTT 32.9 Seconds (25.1-36.5) 04/01/18 20:03 - Constitutional Appears: No Acute Distress, Chronically Ill - Head Exam Head Exam: NORMAL INSPECTION - Respiratory Exam Respiratory Exam: Decreased Breath Sounds - Cardiovascular Exam Cardiovascular Exam: +S1, +S2 - GI/Abdominal Exam GI & Abdominal Exam: Soft. 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 Watson - will need prolonged antibiotics - will discuss again with him regarding further plans on the prosthesis since all cultures are positive - patient for OR on Saturday will continue to monitor clinically
--- NOTE | 2018-04-05 19:52 | PN ---
DATE: 04/05/2018 SUBJECTIVE: The patient is 82 years old, seen and examined, lying in bed, seems to be comfortable. The right knee is in immobilizer. Denies any nausea or vomiting. Eating and tolerating. PHYSICAL EXAMINATION: VITAL SIGNS: She is afebrile, pulse 81, respiration 18, and blood pressure 126/58. LUNGS: Bilateral good airflow. No rhonchi or crackle. HEART: S1 and S2 audible. ABDOMEN: Soft, nontender. No rebound, no guarding. NEUROLOGICAL: She is awake and alert, able to communicate. EXTREMITIES: Right knee is in immobilizer. The right leg is swollen. LABORATORY EXAM: WBC is 7.5, hemoglobin 8.5, hematocrit 26.8, platelet 139. PT 14.8, INR 1.28. Chemistry: Sodium 136, potassium 3.5, chloride 103, CO2 of 27. BUN 14, creatinine 0.6. Blood sugar of 100. Wound culture shows vancomycin resistant Enterococcus faecalis. Blood cultures are negative. ASSESSMENT: 1. Status post right total knee replacement with infected prosthesis. The patient was taken to the OR and had right knee irrigation and debridement with evacuation of hematoma done by Dr. Watson. 2. Hypertension. 3. Coronary artery disease. 4. Chronic atrial fibrillation. 5. Hyperlipidemia. 6. Constipation. 7. Enterococcus faecalis wound infection. PLAN: Currently, the patient is on Zyvox. She is on DVT prophylaxis. She is on analgesics. She will be maintained on her antibiotics as recommended by ID. She is subtherapeutic for now. Gave her 5 mg of Coumadin today, analgesic as needed MiraLax. Maintain her on DVT prophylaxis. We will follow up. Marly Romero MD
[2018-04-06 08:42] LABS: BASO # 0.04 K/mm3 (0.0-2.0); BASO % 0.6 % (0.0-3.0); EOS # 0.4 (0.0-0.7); EOS % 5.8 % (1.5-5.0); GRAN # 4.33 (1.4-6.5); GRAN % 65.7 % (50.0-68.0); HEMOGLOBIN 7.8 g/dL (12.0-16.0); LYMPH # 1.2 (1.2-3.4); LYMPH % 18.2 % (22.0-35.0); MEAN CELL VOLUME 84.8 fl (80.0-105.0); MEAN CORPUSCULAR HEMOGLOBIN 26.9 pg (25.0-35.0); MEAN CORPUSCULAR HGB CONC 31.7 g/dl (31.0-37.0); MEAN PLATELET VOLUME 11.1 fl (7.0-11.0); MONO # 0.6 (0.1-0.6); MONO % 9.7 % (1.0-6.0); RBC 2.9 10^6/uL (3.5-6.1); RED CELL DISTRIBUTION WIDTH 16.7 % (11.5-14.5); WHITE BLOOD COUNT 6.6 10^3/ul (4.5-11.0)
[2018-04-06 08:55] LABS: BLOOD UREA NITROGEN 13 mg/dL (7-21); CALCIUM 8.1 mg/dL (8.4-10.5); GFR NON-AFRICAN AMERICAN > 60
[2018-04-06] MEDS: Potassium Chloride 20 mEq ER Tab PO SCH (10:14)
[2018-04-06] MEDS: Linezolid 600 mg in D5W 300 ml 600 MG/300 ML BAG IVPB SCH ×2 (10:15→23:09)
[2018-04-06] MEDS: POLYETHYLENE GLYCOL 3350 17 GM/Dose PACKET PO SCH (10:15)
[2018-04-06] MEDS: oxyCODONE 10 mg Immediate Release Tab PO PRN (10:19)
[2018-04-06] MEDS: Enoxaparin 80 mg Syringe SC SCH ×2 (10:19→21:46)
[2018-04-06] MEDS: Digoxin 125 mcg (0.125 mg) Tab PO SCH (10:22)
--- NOTE | 2018-04-06 10:32 | RAD ---
Date of service: 04/05/2018 HISTORY: PICC line placement COMPARISON: 03/31/2018 FINDINGS: LUNGS: No active pulmonary disease. PLEURA: No significant pleural effusion identified, no pneumothorax apparent. CARDIOVASCULAR: Cardiomegaly. No evidence of acute, significant cardiovascular disease. PICC line in satisfactory position, the tip is in the SVC. OSSEOUS STRUCTURES: No significant abnormalities. VISUALIZED UPPER ABDOMEN: Normal. OTHER FINDINGS: None. IMPRESSION: Satisfactory position of PICC line. No adverse findings/pneumothorax. Otherwise no interval change. Concordant findings (preliminary report) provided by [facility].
--- NOTE | 2018-04-06 18:34 | CP.PCM.PN ---
Subjective - Date & Time of Evaluation Date of Evaluation: 04/06/18 Time of Evaluation: 10:50 - Subjective Subjective: Comfortable in bed, no fevers, decreased pain in the right knee. Objective - Vital Signs/Intake and Output Vital Signs (last 24 hours): Temp Pulse Resp BP Pulse Ox 97.9 F 77 18 121/78 99 04/06/18 14:00 04/06/18 17:17 04/06/18 14:00 04/06/18 17:17 04/06/18 14:00 Intake and Output: 04/06/18 04/06/18 06:59 18:59 Intake Total 740 Balance 740 - Medications Medications: Current Medications Acetaminophen (Tylenol 325mg Tab) 650 mg PO Q6 [facility] Last Admin: 04/06/18 17:17 Dose: 650 mg Aspirin (Ecotrin) 81 mg PO DAILY [facility] Last Admin: 04/06/18 10:13 Dose: 81 mg Atenolol (Tenormin) 25 mg PO BID [facility] Last Admin: 04/06/18 17:17 Dose: 25 mg Atorvastatin Calcium (Lipitor) 20 mg PO HS [facility] Last Admin: 04/05/18 21:44 Dose: 20 mg Digoxin (Digoxin) 0.125 mg PO DAILY [facility] Last Admin: 04/06/18 10:22 Dose: 0.125 mg Docusate Sodium (Colace) 100 mg PO BID [facility] Last Admin: 04/06/18 17:17 Dose: 100 mg Enoxaparin Sodium (Lovenox) 70 mg SC Q12H [facility]; Protocol Last Admin: 04/06/18 10:19 Dose: 70 mg Famotidine (Pepcid) 40 mg PO HS [facility] Last Admin: 04/05/18 21:44 Dose: 40 mg Furosemide (Lasix) 40 mg PO DAILY [facility] Last Admin: 04/06/18 10:16 Dose: 40 mg Linezolid (Zyvox 600mg/300ml D5w) 600 mg in 300 mls @ 200 mls/hr IVPB Q12 [facility]; Protocol Stop: 05/02/18 10:31 Last Admin: 04/06/18 10:15 Dose: 200 mls/hr Ondansetron HCl (Zofran Inj) 4 mg IVP Q6H PRN PRN Reason: Nausea/Vomiting Last Admin: 04/05/18 13:51 Dose: 4 mg Polyethylene Glycol (Miralax) 17 gm PO DAILY [facility] Last Admin: 04/06/18 10:15 Dose: 17 gm Potassium Chloride (K-Dur 20 Meq Er Tab) 20 meq PO DAILY [facility] Last Admin: 04/06/18 10:14 Dose: 20 meq Sennosides (Senokot Tab) 17.2 mg PO HS [facility] Last Admin: 04/05/18 21:44 Dose: 17.2 mg Warfarin Sodium (Coumadin) 5 mg PO 1800 [facility] Last Admin: 04/06/18 17:17 Dose: 5 mg - Labs Labs: 04/06/18 07:00 04/06/18 07:00 PT 14.8 SECONDS (9.4-12.5) H 04/05/18 07:00 INR 1.28 04/05/18 07:00 APTT 32.9 Seconds (25.1-36.5) 04/01/18 20:03 - Constitutional Appears: No Acute Distress, Chronically Ill - Head Exam Head Exam: NORMAL INSPECTION - Respiratory Exam Respiratory Exam: Decreased Breath Sounds - Cardiovascular Exam Cardiovascular Exam: +S1, +S2 - GI/Abdominal Exam GI & Abdominal Exam: Soft. 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 Watson - will need prolonged antibiotics (at least 6 weeks) - will discuss again with him regarding further plans on the prosthesis since all cultures are positive - patient for OR on Saturday will continue to monitor clinically
--- NOTE | 2018-04-06 21:08 | PN ---
DATE: 04/06/2018 SUBJECTIVE: The patient is 82 years old, seen and examined, awake, alert, oriented, communicative. Offer no complaints except pain in the right arm at the site of IV side. PHYSICAL EXAMINATION: VITAL SIGNS: She is afebrile, pulse 77, respirations 18, blood pressure 121/78. LUNGS: Bilateral fair airflow. No rhonchi or crackle. HEART: S1 and S2 audible. ABDOMEN: Soft, nontender. No rebound, no guarding. NEUROLOGICAL: She is awake, alert, oriented, able to communicate. EXTREMITIES: She has the right knee in the immobilizer. LABORATORY EXAM: WBC is 6.6, hemoglobin 7.8, hematocrit 24.6, platelet of 148. Chemistry: Sodium 134, potassium 3.4, chloride 101, CO2 of 27. BUN 13, creatinine 0.6. Blood sugar of 88. Her wound culture is positive for vancomycin resistant Enterococcus faecalis. She had x-ray of chest done that shows the PICC line is in satisfactory position. ASSESSMENT: 1. Status post right knee replacement, her infected hematoma, status post incision and drainage, receiving Zyvox. 2. Hypertension. 3. Hyperlipidemia. 4. Coronary artery disease. 5. Chronic atrial fibrillation. 6. Constipation. 7. Probably blood loss anemia. PLAN: We will give her one blood transfusion. Continue her on analgesic. Continue antibiotics. Dr. Waller will follow up the patient in a.m. Marly Romero MD (Delete this signature block when dictator is a preceptor.) cc: MD Sonja (Delete if not dictated.)
[2018-04-07] MEDS ORDERED: oxyCODONE 5 mg Immediate Release Tab PO STA (02:59)
--- NOTE | 2018-04-07 06:46 | CP.PCM.PN ---
<Maru Boothe - Last Filed: 04/07/18 11:10> Subjective - Date & Time of Evaluation Date of Evaluation: 04/07/18 Time of Evaluation: 07:00 - Subjective Subjective: Medicine Progress Note for Jose Manuel London PGY3 Patient seen and examined at bedside. There were no acute overnight events as per nursing staff. Patient is resting comfortably in bed. She reports she does not have much of an appetite because she does not like the food at the hospital. She complains of some pain in her R knee but denies chest pain, shortness of breath, nausea/vomiting/diarrhea, numbness/tingling, dysuria or hematuria. Objective - Vital Signs/Intake and Output Vital Signs (last 24 hours): Temp Pulse Resp BP Pulse Ox 98.2 F 99 H 18 143/62 99 04/06/18 23:30 04/06/18 23:30 04/06/18 23:30 04/06/18 23:30 04/06/18 14:00 Intake and Output: 04/06/18 04/07/18 18:59 06:59 Intake Total 140 Balance 140 - Medications Medications: Current Medications Acetaminophen (Tylenol 325mg Tab) 650 mg PO Q6 [facility] Last Admin: 04/06/18 23:10 Dose: 650 mg Aspirin (Ecotrin) 81 mg PO DAILY [facility] Last Admin: 04/06/18 10:13 Dose: 81 mg Atenolol (Tenormin) 25 mg PO BID [facility] Last Admin: 04/06/18 17:17 Dose: 25 mg Atorvastatin Calcium (Lipitor) 20 mg PO HS [facility] Last Admin: 04/06/18 21:46 Dose: 20 mg Digoxin (Digoxin) 0.125 mg PO DAILY [facility] Last Admin: 04/06/18 10:22 Dose: 0.125 mg Docusate Sodium (Colace) 100 mg PO BID [facility] Last Admin: 04/06/18 17:17 Dose: 100 mg Enoxaparin Sodium (Lovenox) 70 mg SC Q12H [facility]; Protocol Last Admin: 04/06/18 21:46 Dose: 70 mg Famotidine (Pepcid) 40 mg PO HS [facility] Last Admin: 04/06/18 21:46 Dose: 40 mg Furosemide (Lasix) 40 mg PO DAILY [facility] Last Admin: 04/06/18 10:16 Dose: 40 mg Linezolid (Zyvox 600mg/300ml D5w) 600 mg in 300 mls @ 200 mls/hr IVPB Q12 [facility]; Protocol Stop: 05/02/18 10:31 Last Admin: 04/06/18 23:09 Dose: 200 mls/hr Ondansetron HCl (Zofran Inj) 4 mg IVP Q6H PRN PRN Reason: Nausea/Vomiting Last Admin: 04/05/18 13:51 Dose: 4 mg Polyethylene Glycol (Miralax) 17 gm PO DAILY [facility] Last Admin: 04/06/18 10:15 Dose: 17 gm Potassium Chloride (K-Dur 20 Meq Er Tab) 20 meq PO DAILY [facility] Last Admin: 04/06/18 10:14 Dose: 20 meq Sennosides (Senokot Tab) 17.2 mg PO HS [facility] Last Admin: 04/06/18 21:46 Dose: 17.2 mg Warfarin Sodium (Coumadin) 5 mg PO 1800 [facility] Last Admin: 04/06/18 17:17 Dose: 5 mg - Labs Labs: 04/06/18 07:00 04/06/18 07:00 PT 14.8 SECONDS (9.4-12.5) H 04/05/18 07:00 INR 1.28 04/05/18 07:00 APTT 32.9 Seconds (25.1-36.5) 04/01/18 20:03 - Constitutional Appears: No Acute Distress - Head Exam Head Exam: ATRAUMATIC, NORMAL INSPECTION, NORMOCEPHALIC - Eye Exam Eye Exam: Normal appearance, PERRL Pupil Exam: NORMAL ACCOMODATION, PERRL - ENT Exam ENT Exam: Mucous Membranes Moist - Neck Exam Neck Exam: Full ROM, Normal Inspection. absent: Tenderness - Respiratory Exam Respiratory Exam: Clear to Ausculation Bilateral, NORMAL BREATHING PATTERN. absent: Rales, Rhonchi, Wheezes - Cardiovascular Exam Cardiovascular Exam: REGULAR RHYTHM, +S1, +S2. absent: Gallop, Rubs, Murmur - GI/Abdominal Exam GI & Abdominal Exam: Soft, Normal Bowel Sounds. absent: Tenderness, Mass, Rebound - Extremities Exam Extremities Exam: Normal Capillary Refill. 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 R knee infection s/p R TKA - s/p debridement - Culture + for VRE 2. A.fib - rate controlled 3. HTN 4. CAD Plan: As per ortho, patient will have another debridement tomorrow morning. We will hold Lovenox and patient will be NPO at midnight. Patient is for Zyvox for VRE. ID is on consult. Will continue Digoxin, ASA, Atenolol, and Lasix. Pain is controlled and patient is tolerating diet. Plan is for patient to go to TCU after second debridement. Case seen, discussed and reviewed with Dr. Chayo Boothe PGY3 <Ajay Waller S - Last Filed: 04/07/18 22:01> Objective - Vital Signs/Intake and Output Vital Signs (last 24 hours): Temp Pulse Resp BP Pulse Ox 98.3 F 67 18 127/75 98 04/07/18 14:00 04/07/18 18:21 04/07/18 14:00 04/07/18 18:21 04/07/18 14:00 Intake and Output: 04/07/18 04/08/18 18:59 06:59 Intake Total 540 Balance 540 - Medications Medications: Current Medications Acetaminophen (Tylenol 325mg Tab) 650 mg PO Q6 [facility] Last Admin: 04/07/18 18:22 Dose: 650 mg Aspirin (Ecotrin) 81 mg PO DAILY [facility] Last Admin: 04/07/18 10:40 Dose: 81 mg Atenolol (Tenormin) 25 mg PO BID [facility] Last Admin: 04/07/18 18:21 Dose: 25 mg Atorvastatin Calcium (Lipitor) 20 mg PO HS [facility] Last Admin: 04/06/18 21:46 Dose: 20 mg Digoxin (Digoxin) 0.125 mg PO DAILY [facility] Last Admin: 04/07/18 10:40 Dose: 0.125 mg Docusate Sodium (Colace) 100 mg PO BID [facility] Last Admin: 04/07/18 18:22 Dose: 100 mg Enoxaparin Sodium (Lovenox) 70 mg SC Q12H [facility]; Protocol Last Admin: 04/07/18 10:45 Dose: 70 mg Famotidine (Pepcid) 40 mg PO HS [facility] Last Admin: 04/06/18 21:46 Dose: 40 mg Fluticasone Propionate (Flonase) 1 actuation NS DAILY [facility] Last Admin: 04/07/18 13:58 Dose: 1 spr Furosemide (Lasix) 40 mg PO DAILY [facility] Last Admin: 04/07/18 10:40 Dose: 40 mg Linezolid (Zyvox 600mg/300ml D5w) 600 mg in 300 mls @ 200 mls/hr IVPB Q12 [facility]; Protocol Stop: 05/02/18 10:31 Last Admin: 04/07/18 10:55 Dose: 200 mls/hr Ondansetron HCl (Zofran Inj) 4 mg IVP Q6H PRN PRN Reason: Nausea/Vomiting Last Admin: 04/07/18 11:02 Dose: 4 mg Oxycodone HCl (Oxycodone Immediate Release Tab) 5 mg PO Q4H PRN PRN Reason: Pain, Mild (1-3) Oxycodone HCl (Oxycodone Immediate Release Tab) 10 mg PO Q4H PRN PRN Reason: Pain, moderate (4-7) Polyethylene Glycol (Miralax) 17 gm PO DAILY [facility] Last Admin: 04/07/18 10:40 Dose: Not Given Potassium Chloride (K-Dur 20 Meq Er Tab) 20 meq PO DAILY [facility] Last Admin: 04/07/18 10:40 Dose: 20 meq Sennosides (Senokot Tab) 17.2 mg PO HS [facility] Last Admin: 04/06/18 22:00 Dose: Not Given Warfarin Sodium (Coumadin) 5 mg PO 1800 [facility] Last Admin: 04/06/18 17:17 Dose: 5 mg - Labs Labs: 04/07/18 06:45 04/07/18 06:45 PT 28.4 SECONDS (9.4-12.5) H 04/07/18 08:30 INR 2.43 04/07/18 08:30 APTT 32.9 Seconds (25.1-36.5) 04/01/18 20:03 Assessment and Plan - Assessment and Plan (Free Text) Plan: Pt seen and examined by me. I have reviewed the note by the medical dermatologist. The case was discussed and reviewed with the resident. I reviewed the medications and labs. Pt with infection of knee. I spoke to Dr Narvaez regarding the plan of care. She will need to continue with Zyvox. Her Lovenox and Coumadin is on hold as she is going to the OR in the AM. Pain is controlled. ID note appreciated. She has VRE in her infection site.
[2018-04-07 07:24] LABS: BASO # 0.02 K/mm3 (0.0-2.0); BASO % 0.3 % (0.0-3.0); EOS # 0.4 (0.0-0.7); GRAN # 4.04 (1.4-6.5); GRAN % 64.4 % (50.0-68.0); HEMOGLOBIN 8.7 g/dL (12.0-16.0); LYMPH # 1.3 (1.2-3.4); LYMPH % 19.9 % (22.0-35.0); MEAN CELL VOLUME 84.1 fl (80.0-105.0); MEAN CORPUSCULAR HEMOGLOBIN 28.2 pg (25.0-35.0); MEAN CORPUSCULAR HGB CONC 33.6 g/dl (31.0-37.0); MEAN PLATELET VOLUME 10.1 fl (7.0-11.0); MONO # 0.5 (0.1-0.6); MONO % 8.4 % (1.0-6.0); RBC 3.08 10^6/uL (3.5-6.1); RED CELL DISTRIBUTION WIDTH 16.3 % (11.5-14.5); WHITE BLOOD COUNT 6.3 10^3/ul (4.5-11.0)
[2018-04-07 08:10] LABS: BLOOD UREA NITROGEN 10 mg/dL (7-21); CALCIUM 8.1 mg/dL (8.4-10.5); GFR NON-AFRICAN AMERICAN > 60
[2018-04-07 08:42] LABS: INR 2.43; PROTHROMBIN TIME 28.4 SECONDS (9.4-12.5)
--- NOTE | 2018-04-07 08:42 | CP.PCM.PN ---
<Daja Cade - Last Filed: 04/07/18 13:33> Subjective - Date & Time of Evaluation Date of Evaluation: 04/07/18 Time of Evaluation: 08:15 - Subjective Subjective: PGY-3 IM RESIDENT ID progress note for Dr. Mi Patient with no acute events overnight. Patient c/o runny nose, and nasal congestion. Denies fever or chills. No cough, chest pain or sob. No abdominal pain, and no dysurea. Admits to 4/10 right knee pain. Objective - Vital Signs/Intake and Output Vital Signs (last 24 hours): Temp Pulse Resp BP Pulse Ox 98.2 F 99 H 18 143/62 99 04/06/18 23:30 04/06/18 23:30 04/06/18 23:30 04/06/18 23:30 04/06/18 14:00 Intake and Output: 04/07/18 04/07/18 06:59 18:59 Intake Total 740 Balance 740 - Medications Medications: Current Medications Acetaminophen (Tylenol 325mg Tab) 650 mg PO Q6 [facility] Last Admin: 04/07/18 06:46 Dose: 650 mg Aspirin (Ecotrin) 81 mg PO DAILY [facility] Last Admin: 04/06/18 10:13 Dose: 81 mg Atenolol (Tenormin) 25 mg PO BID [facility] Last Admin: 04/06/18 17:17 Dose: 25 mg Atorvastatin Calcium (Lipitor) 20 mg PO HS [facility] Last Admin: 04/06/18 21:46 Dose: 20 mg Digoxin (Digoxin) 0.125 mg PO DAILY [facility] Last Admin: 04/06/18 10:22 Dose: 0.125 mg Docusate Sodium (Colace) 100 mg PO BID [facility] Last Admin: 04/06/18 17:17 Dose: 100 mg Enoxaparin Sodium (Lovenox) 70 mg SC Q12H [facility]; Protocol Last Admin: 04/06/18 21:46 Dose: 70 mg Famotidine (Pepcid) 40 mg PO HS [facility] Last Admin: 04/06/18 21:46 Dose: 40 mg Furosemide (Lasix) 40 mg PO DAILY [facility] Last Admin: 04/06/18 10:16 Dose: 40 mg Linezolid (Zyvox 600mg/300ml D5w) 600 mg in 300 mls @ 200 mls/hr IVPB Q12 [facility]; Protocol Stop: 05/02/18 10:31 Last Admin: 04/06/18 23:09 Dose: 200 mls/hr Ondansetron HCl (Zofran Inj) 4 mg IVP Q6H PRN PRN Reason: Nausea/Vomiting Last Admin: 04/05/18 13:51 Dose: 4 mg Polyethylene Glycol (Miralax) 17 gm PO DAILY [facility] Last Admin: 04/06/18 10:15 Dose: 17 gm Potassium Chloride (K-Dur 20 Meq Er Tab) 20 meq PO DAILY [facility] Last Admin: 04/06/18 10:14 Dose: 20 meq Sennosides (Senokot Tab) 17.2 mg PO HS [facility] Last Admin: 04/06/18 22:00 Dose: Not Given Warfarin Sodium (Coumadin) 5 mg PO 1800 [facility] Last Admin: 04/06/18 17:17 Dose: 5 mg - Labs Labs: 04/07/18 06:45 04/07/18 06:45 PT 28.4 SECONDS (9.4-12.5) H 04/07/18 08:30 INR 2.43 04/07/18 08:30 APTT 32.9 Seconds (25.1-36.5) 04/01/18 20:03 - Constitutional Appears: No Acute Distress - Head Exam Head Exam: ATRAUMATIC, NORMAL INSPECTION, NORMOCEPHALIC - Eye Exam Eye Exam: Normal appearance - ENT Exam ENT Exam: Mucous Membranes Moist - Neck Exam Neck Exam: Normal Inspection - Respiratory Exam Respiratory Exam: Clear to Ausculation Bilateral, NORMAL BREATHING PATTERN. absent: Rales, Rhonchi, Wheezes, Respiratory Distress, Stridor - Cardiovascular Exam Cardiovascular Exam: Irregular Rhythm, +S1, +S2. absent: Gallop, JVD, Rubs, Murmur - GI/Abdominal Exam GI & Abdominal Exam: Soft, Normal Bowel Sounds. absent: Distended, Firm, Guarding, Rigid, Tenderness - Extremities Exam Extremities Exam: Normal Capillary Refill, Pedal Edema, Tenderness Additional comments: Right knees immobilized, with clean dressing, patient able to wiggle her toes. - Back Exam Back Exam: NORMAL INSPECTION - Neurological Exam Neurological Exam: Alert, Awake, Oriented x3 - Psychiatric Exam Psychiatric exam: Normal Affect, Normal Mood - Skin Skin Exam: Dry, Normal Color, Warm Assessment and Plan - Assessment and Plan (Free Text) Assessment: Patient is an 82 w/o with right knee pain , found to have Probable right knee prosthetic infection with infected hematoma with VRE, S/P debridement with repeat cultures. CAD S/P PCI HTN Atrial fibrillation osteoarthritis S/P right knee replacement 02/08/18 Anemia Plan: Multiple right knee wound cultures with VRE. No growth on the blood cultures. Remains afebrile and no leukocytosis. Scheduled for debridement this Saturday. Continue with zyvox for a total of at least 6 weeks. Will add flonase for rhinorrhoea. Patient seen, examined and case discussed with Dr. Mi. <Mehrdad Mi S - Last Filed: 04/07/18 22:49> Objective - Vital Signs/Intake and Output Vital Signs (last 24 hours): Temp Pulse Resp BP Pulse Ox 98.3 F 67 18 127/75 98 04/07/18 14:00 04/07/18 18:21 04/07/18 14:00 04/07/18 18:21 04/07/18 14:00 Intake and Output: 04/07/18 04/08/18 18:59 06:59 Intake Total 540 Balance 540 - Medications Medications: Current Medications Acetaminophen (Tylenol 325mg Tab) 650 mg PO Q6 [facility] Last Admin: 04/07/18 18:22 Dose: 650 mg Aspirin (Ecotrin) 81 mg PO DAILY [facility] Last Admin: 04/07/18 10:40 Dose: 81 mg Atenolol (Tenormin) 25 mg PO BID [facility] Last Admin: 04/07/18 18:21 Dose: 25 mg Atorvastatin Calcium (Lipitor) 20 mg PO HS [facility] Last Admin: 04/07/18 21:19 Dose: 20 mg Digoxin (Digoxin) 0.125 mg PO DAILY [facility] Last Admin: 04/07/18 10:40 Dose: 0.125 mg Docusate Sodium (Colace) 100 mg PO BID [facility] Last Admin: 04/07/18 18:22 Dose: 100 mg Enoxaparin Sodium (Lovenox) 70 mg SC Q12H [facility]; Protocol Last Admin: 04/07/18 10:45 Dose: 70 mg Famotidine (Pepcid) 40 mg PO HS [facility] Last Admin: 04/07/18 21:19 Dose: 40 mg Fluticasone Propionate (Flonase) 1 actuation NS DAILY [facility] Last Admin: 04/07/18 13:58 Dose: 1 spr Furosemide (Lasix) 40 mg PO DAILY [facility] Last Admin: 04/07/18 10:40 Dose: 40 mg Linezolid (Zyvox 600mg/300ml D5w) 600 mg in 300 mls @ 200 mls/hr IVPB Q12 [facility]; Protocol Stop: 05/02/18 10:31 Last Admin: 04/07/18 21:20 Dose: 200 mls/hr Ondansetron HCl (Zofran Inj) 4 mg IVP Q6H PRN PRN Reason: Nausea/Vomiting Last Admin: 04/07/18 11:02 Dose: 4 mg Oxycodone HCl (Oxycodone Immediate Release Tab) 5 mg PO Q4H PRN PRN Reason: Pain, Mild (1-3) Oxycodone HCl (Oxycodone Immediate Release Tab) 10 mg PO Q4H PRN PRN Reason: Pain, moderate (4-7) Polyethylene Glycol (Miralax) 17 gm PO DAILY [facility] Last Admin: 04/07/18 10:40 Dose: Not Given Potassium Chloride (K-Dur 20 Meq Er Tab) 20 meq PO DAILY [facility] Last Admin: 04/07/18 10:40 Dose: 20 meq Sennosides (Senokot Tab) 17.2 mg PO HS [facility] Last Admin: 04/07/18 21:19 Dose: Not Given Warfarin Sodium (Coumadin) 5 mg PO 1800 [facility] Last Admin: 04/06/18 17:17 Dose: 5 mg - Labs Labs: 04/07/18 06:45 04/07/18 06:45 PT 28.4 SECONDS (9.4-12.5) H 04/07/18 08:30 INR 2.43 04/07/18 08:30 APTT 32.9 Seconds (25.1-36.5) 04/01/18 20:03 Assessment and Plan - Assessment and Plan (Free Text) Plan: Infectious Diseases Attending Physician Addendum Patient seen, examined, discussed with medical device sales representative. I have reviewed the pertinent clinical information. 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 Will need at least 6 weeks of antibiotics with weekly CRP, CBC, CMP. Reviewed Dr. Watson's note - he recommends removal of prosthetic joint, placement of antibiotic spacer and continuation of antibiotics for 6 weeks then placement of new prosthetic joint. Patient apparently does not want to do this and instead wants to salvage the prosthesis. It would be very difficult to eradicate the infection by retaining the prosthesis and just use antibiotics. Patient for debridement and washout tomorrow. If final decision of patient and family is to retain the prosthesis, will need to add Rifampin on top of Zyvox, and will need indefinite antibiotic therapy if the decision is to retain the prosthesis. Would also recommend removal of prosthesis, placement of antibiotic spacer with systemic antibiotic therapy for 6 weeks prior to new prosthetic placement if feasible and patient amenable.
--- NOTE | 2018-04-07 08:43 | CP.PCM.PN ---
Subjective - Date & Time of Evaluation Date of Evaluation: 04/07/18 Time of Evaluation: 08:35 - Subjective Subjective: Pt denies significant pain. Afebrile R knee: dressing changed incision intact no drainage NVI distally calf soft Spoke to patient and daughter Nina multiple times on 04/04.I explained to them that VRE in a prosthetic joint can be extremely difficult to eradicate. I discussed with them surgical explantation of the prosthesis, insertion of antibiotic spacer and later staged revision. Pt and daughter do not want this at this time. They want to try to salvage the implant because they feel "she won't be able to go through another major operation". We discussed repeat washout with retention of implant and they would rather proceed with this option. I explained that if this approach fails, it could require explantation in order to save her leg and avoid amputation. They understand. Plan at this point is to do repeat washout tomorrow. Hold Lovenox and coumadin for now. Objective - Vital Signs/Intake and Output Vital Signs (last 24 hours): Temp Pulse Resp BP Pulse Ox 98.2 F 99 H 18 143/62 99 04/06/18 23:30 04/06/18 23:30 04/06/18 23:30 04/06/18 23:30 04/06/18 14:00 Intake and Output: 04/07/18 04/07/18 06:59 18:59 Intake Total 740 Balance 740 - Medications Medications: Current Medications Acetaminophen (Tylenol 325mg Tab) 650 mg PO Q6 [facility] Last Admin: 04/07/18 06:46 Dose: 650 mg Aspirin (Ecotrin) 81 mg PO DAILY [facility] Last Admin: 04/06/18 10:13 Dose: 81 mg Atenolol (Tenormin) 25 mg PO BID [facility] Last Admin: 04/06/18 17:17 Dose: 25 mg Atorvastatin Calcium (Lipitor) 20 mg PO HS [facility] Last Admin: 04/06/18 21:46 Dose: 20 mg Digoxin (Digoxin) 0.125 mg PO DAILY [facility] Last Admin: 04/06/18 10:22 Dose: 0.125 mg Docusate Sodium (Colace) 100 mg PO BID [facility] Last Admin: 04/06/18 17:17 Dose: 100 mg Enoxaparin Sodium (Lovenox) 70 mg SC Q12H [facility]; Protocol Last Admin: 04/06/18 21:46 Dose: 70 mg Famotidine (Pepcid) 40 mg PO HS [facility] Last Admin: 04/06/18 21:46 Dose: 40 mg Furosemide (Lasix) 40 mg PO DAILY [facility] Last Admin: 04/06/18 10:16 Dose: 40 mg Linezolid (Zyvox 600mg/300ml D5w) 600 mg in 300 mls @ 200 mls/hr IVPB Q12 [facility]; Protocol Stop: 05/02/18 10:31 Last Admin: 04/06/18 23:09 Dose: 200 mls/hr Ondansetron HCl (Zofran Inj) 4 mg IVP Q6H PRN PRN Reason: Nausea/Vomiting Last Admin: 04/05/18 13:51 Dose: 4 mg Polyethylene Glycol (Miralax) 17 gm PO DAILY [facility] Last Admin: 04/06/18 10:15 Dose: 17 gm Potassium Chloride (K-Dur 20 Meq Er Tab) 20 meq PO DAILY [facility] Last Admin: 04/06/18 10:14 Dose: 20 meq Sennosides (Senokot Tab) 17.2 mg PO HS [facility] Last Admin: 04/06/18 22:00 Dose: Not Given Warfarin Sodium (Coumadin) 5 mg PO 1800 [facility] Last Admin: 04/06/18 17:17 Dose: 5 mg - Labs Labs: 04/07/18 06:45 04/07/18 06:45 PT 14.8 SECONDS (9.4-12.5) H 04/05/18 07:00 INR 1.28 04/05/18 07:00 APTT 32.9 Seconds (25.1-36.5) 04/01/18 20:03
[2018-04-07] MEDS: Digoxin 125 mcg (0.125 mg) Tab PO SCH (10:40)
[2018-04-07] MEDS: POLYETHYLENE GLYCOL 3350 17 GM/Dose PACKET PO SCH (10:40)
[2018-04-07] MEDS: Potassium Chloride 20 mEq ER Tab PO SCH (10:40)
[2018-04-07] MEDS ORDERED: Phytonadione 10 mg/ml Inj (Adult) SC ONE (10:43)
[2018-04-07] MEDS: Enoxaparin 80 mg Syringe SC SCH (10:45)
[2018-04-07] MEDS: Linezolid 600 mg in D5W 300 ml 600 MG/300 ML BAG IVPB SCH ×2 (10:55→21:20)
[2018-04-07] MEDS: Fluticasone Nasal 50 mcg/Spray NS SCH (13:58)
[2018-04-07] MEDS ORDERED: oxyCODONE 10 mg Immediate Release Tab PO PRN (20:17)
--- NOTE | 2018-04-08 06:30 | CP.PCM.PN ---
<Maru Boothe - Last Filed: 04/08/18 13:03> Subjective - Date & Time of Evaluation Date of Evaluation: 04/08/18 Time of Evaluation: 07:00 - Subjective Subjective: Medicine Progress Note for Jose Manuel London PGY3 Patient seen and examined at bedside. There were no acute overnight events as per nursing staff. Patient reports having a mild headache this AM, but otherwise feels OK. She denies chest pain, shortness of breath, nausea/vomiting/diarrhea, fever/chills, numbness/tingling, dysuria or hematuria. Objective - Vital Signs/Intake and Output Vital Signs (last 24 hours): Temp Pulse Resp BP Pulse Ox 98.2 F 64 18 128/55 L 98 04/07/18 23:17 04/07/18 23:17 04/07/18 23:17 04/07/18 23:17 04/07/18 23:17 Intake and Output: 04/07/18 04/08/18 18:59 06:59 Intake Total 540 Balance 540 - Medications Medications: Current Medications Acetaminophen (Tylenol 325mg Tab) 650 mg PO Q6 [facility] Last Admin: 04/07/18 23:36 Dose: 650 mg Aspirin (Ecotrin) 81 mg PO DAILY [facility] Last Admin: 04/07/18 10:40 Dose: 81 mg Atenolol (Tenormin) 25 mg PO BID [facility] Last Admin: 04/07/18 18:21 Dose: 25 mg Atorvastatin Calcium (Lipitor) 20 mg PO HS [facility] Last Admin: 04/07/18 21:19 Dose: 20 mg Digoxin (Digoxin) 0.125 mg PO DAILY [facility] Last Admin: 04/07/18 10:40 Dose: 0.125 mg Docusate Sodium (Colace) 100 mg PO BID [facility] Last Admin: 04/07/18 18:22 Dose: 100 mg Enoxaparin Sodium (Lovenox) 70 mg SC Q12H [facility]; Protocol Last Admin: 04/07/18 10:45 Dose: 70 mg Famotidine (Pepcid) 40 mg PO HS [facility] Last Admin: 04/07/18 21:19 Dose: 40 mg Fluticasone Propionate (Flonase) 1 actuation NS DAILY [facility] Last Admin: 04/07/18 13:58 Dose: 1 spr Furosemide (Lasix) 40 mg PO DAILY [facility] Last Admin: 04/07/18 10:40 Dose: 40 mg Linezolid (Zyvox 600mg/300ml D5w) 600 mg in 300 mls @ 200 mls/hr IVPB Q12 [facility]; Protocol Stop: 05/02/18 10:31 Last Admin: 04/07/18 21:20 Dose: 200 mls/hr Ondansetron HCl (Zofran Inj) 4 mg IVP Q6H PRN PRN Reason: Nausea/Vomiting Last Admin: 04/07/18 11:02 Dose: 4 mg Oxycodone HCl (Oxycodone Immediate Release Tab) 5 mg PO Q4H PRN PRN Reason: Pain, Mild (1-3) Oxycodone HCl (Oxycodone Immediate Release Tab) 10 mg PO Q4H PRN PRN Reason: Pain, moderate (4-7) Polyethylene Glycol (Miralax) 17 gm PO DAILY [facility] Last Admin: 04/07/18 10:40 Dose: Not Given Potassium Chloride (K-Dur 20 Meq Er Tab) 20 meq PO DAILY [facility] Last Admin: 04/07/18 10:40 Dose: 20 meq Sennosides (Senokot Tab) 17.2 mg PO HS [facility] Last Admin: 04/07/18 21:19 Dose: Not Given Warfarin Sodium (Coumadin) 5 mg PO 1800 [facility] Last Admin: 04/06/18 17:17 Dose: 5 mg - Labs Labs: 04/07/18 06:45 04/07/18 06:45 PT 28.4 SECONDS (9.4-12.5) H 04/07/18 08:30 INR 2.43 04/07/18 08:30 APTT 32.9 Seconds (25.1-36.5) 04/01/18 20:03 - Constitutional Appears: No Acute Distress - Head Exam Head Exam: ATRAUMATIC, NORMAL INSPECTION, NORMOCEPHALIC - Eye Exam Eye Exam: Normal appearance, PERRL Pupil Exam: NORMAL ACCOMODATION, PERRL - ENT Exam ENT Exam: Mucous Membranes Moist - Respiratory Exam Respiratory Exam: Clear to Ausculation Bilateral, NORMAL BREATHING PATTERN. absent: Rales, Rhonchi, Wheezes - Cardiovascular Exam Cardiovascular Exam: REGULAR RHYTHM, +S1, +S2. absent: Gallop, Rubs, Murmur - GI/Abdominal Exam GI & Abdominal Exam: Soft, Normal Bowel Sounds. absent: Rigid, Tenderness, Mass, Rebound - Extremities Exam Extremities Exam: Normal Capillary Refill. 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 R knee infection s/p R TKA - s/p debridement - Culture + for VRE 2. A.fib - rate controlled 3. HTN 4. CAD Plan: Patient will have debridement this AM. Lovenox and ASA on hold for procedure and will resume after procedure. 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 Continue Zyvox. Patient is on Digoxin, Atenolol and Lasix. Pain is controlled. Patient has PICC line. Plan is for patient to go to TCU for further rehabilitation. Case seen, discussed and reviewed with Dr. Chayo Boothe PGY3 <Ajay Waller S - Last Filed: 04/08/18 15:15> Objective - Vital Signs/Intake and Output Vital Signs (last 24 hours): Temp Pulse Resp BP Pulse Ox 98.8 F 71 20 147/66 98 04/08/18 06:00 04/08/18 09:10 04/08/18 06:00 04/08/18 09:10 04/08/18 06:00 Intake and Output: 04/08/18 04/08/18 06:59 18:59 Intake Total 600 120 Balance 600 120 - Medications Medications: Current Medications Acetaminophen (Tylenol 325mg Tab) 650 mg PO Q6 [facility] Last Admin: 04/08/18 14:50 Dose: Not Given Aspirin (Ecotrin) 81 mg PO DAILY [facility] Last Admin: 04/07/18 10:40 Dose: 81 mg Atenolol (Tenormin) 25 mg PO BID [facility] Last Admin: 04/08/18 09:10 Dose: 25 mg Atorvastatin Calcium (Lipitor) 20 mg PO HS [facility] Last Admin: 04/07/18 21:19 Dose: 20 mg Digoxin (Digoxin) 0.125 mg PO DAILY [facility] Last Admin: 04/08/18 09:11 Dose: 0.125 mg Docusate Sodium (Colace) 100 mg PO BID [facility] Last Admin: 04/08/18 09:12 Dose: Not Given Enoxaparin Sodium (Lovenox) 70 mg SC Q12H [facility]; Protocol Last Admin: 04/07/18 10:45 Dose: 70 mg Famotidine (Pepcid) 40 mg PO HS [facility] Last Admin: 04/07/18 21:19 Dose: 40 mg Fluticasone Propionate (Flonase) 1 actuation NS DAILY [facility] Last Admin: 04/08/18 09:11 Dose: 1 spr Furosemide (Lasix) 40 mg PO DAILY [facility] Last Admin: 04/08/18 09:59 Dose: Not Given Linezolid (Zyvox 600mg/300ml D5w) 600 mg in 300 mls @ 200 mls/hr IVPB Q12 [facility]; Protocol Stop: 05/02/18 10:31 Last Admin: 04/08/18 09:10 Dose: 200 mls/hr Ondansetron HCl (Zofran Inj) 4 mg IVP Q6H PRN PRN Reason: Nausea/Vomiting Last Admin: 04/07/18 11:02 Dose: 4 mg Oxycodone HCl (Oxycodone Immediate Release Tab) 5 mg PO Q4H PRN PRN Reason: Pain, Mild (1-3) Oxycodone HCl (Oxycodone Immediate Release Tab) 10 mg PO Q4H PRN PRN Reason: Pain, moderate (4-7) Polyethylene Glycol (Miralax) 17 gm PO DAILY [facility] Last Admin: 04/08/18 09:12 Dose: Not Given Potassium Chloride (K-Dur 20 Meq Er Tab) 20 meq PO DAILY [facility] Last Admin: 04/08/18 09:12 Dose: Not Given Sennosides (Senokot Tab) 17.2 mg PO [facility] Last Admin: 04/07/18 21:19 Dose: Not Given Warfarin Sodium (Coumadin) 5 mg PO 1800 [facility] Last Admin: 04/06/18 17:17 Dose: 5 mg - Labs Labs: 04/08/18 06:20 04/08/18 06:20 PT 18.1 SECONDS (9.4-12.5) H 04/08/18 06:20 INR 1.56 04/08/18 06:20 APTT 32.9 Seconds (25.1-36.5) 04/01/18 20:03 Assessment and Plan - Assessment and Plan (Free Text) Plan: Pt seen and examined by me. I have reviewed the note by the medical practice manager. The case was discussed and reviewed with the resident. I reviewed the medications and labs.Pt is going to the OR for R knee infection due to VRE. She does have pain but it is controlled with pain meds. Pt is on Zyvox for infection. She has a PICC line.
[2018-04-08 06:47] LABS: BASO # 0.02 K/mm3 (0.0-2.0); BASO % 0.3 % (0.0-3.0); EOS # 0.3 (0.0-0.7); EOS % 5.4 % (1.5-5.0); GRAN # 3.85 (1.4-6.5); GRAN % 64.8 % (50.0-68.0); HEMOGLOBIN 8.8 g/dL (12.0-16.0); LYMPH # 1.2 (1.2-3.4); LYMPH % 20.7 % (22.0-35.0); MEAN CELL VOLUME 83.8 fl (80.0-105.0); MEAN CORPUSCULAR HEMOGLOBIN 27.4 pg (25.0-35.0); MEAN CORPUSCULAR HGB CONC 32.7 g/dl (31.0-37.0); MEAN PLATELET VOLUME 9.9 fl (7.0-11.0); MONO # 0.5 (0.1-0.6); MONO % 8.8 % (1.0-6.0); RBC 3.21 10^6/uL (3.5-6.1); RED CELL DISTRIBUTION WIDTH 16.2 % (11.5-14.5); WHITE BLOOD COUNT 5.9 10^3/ul (4.5-11.0)
[2018-04-08 06:53] LABS: INR 1.56; PROTHROMBIN TIME 18.1 SECONDS (9.4-12.5)
[2018-04-08 07:25] LABS: ALB/GLOB RATIO 0.9 (1.1-1.8); ALBUMIN 2.8 g/dL (3.0-4.8); ALT/SGPT 31 U/L (7-56); AST/SGOT 40 U/L (14-36); BLOOD UREA NITROGEN 8 mg/dL (7-21); CALCIUM 8.5 mg/dL (8.4-10.5); GFR NON-AFRICAN AMERICAN > 60
[2018-04-08] MEDS: Linezolid 600 mg in D5W 300 ml 600 MG/300 ML BAG IVPB SCH (09:10)
[2018-04-08] MEDS: Digoxin 125 mcg (0.125 mg) Tab PO SCH (09:11)
[2018-04-08] MEDS: Fluticasone Nasal 50 mcg/Spray NS SCH (09:11)
[2018-04-08] MEDS: POLYETHYLENE GLYCOL 3350 17 GM/Dose PACKET PO SCH (09:12)
[2018-04-08] MEDS: Potassium Chloride 20 mEq ER Tab PO SCH (09:12)
[2018-04-08] MEDS ORDERED: Succinylcholine 200 mg/10 ml Inj IV ONE (16:42)
[2018-04-08] MEDS ORDERED: Etomidate 20 mg/10ml Inj IV ONE (16:42)
[2018-04-08] MEDS ORDERED: Rocuronium 10 mg/ml (5 ml) ONE (16:42)
[2018-04-08] MEDS ORDERED: Sevoflurane - Inhalation Anesthetic Liq (250 ml) ONE (16:44)
[2018-04-08] MEDS ORDERED: Clindamycin 150 mg/mL Inj ONE (17:19)
[2018-04-08] MEDS ORDERED: Bupivacaine Liposomal Inj 20 ml ONE (17:38)
[2018-04-08] MEDS ORDERED: Sodium Chloride 0.9% 40 ML IV ONE (17:38)
[2018-04-08] MEDS ORDERED: Vancomycin 1 g Inj ONE (17:38)
[2018-04-08] MEDS ORDERED: Midazolam 2 MG/2 ML VIAL ONE (18:21)
[2018-04-08] MEDS ORDERED: Neostigmine Methylsulfate 3mg/3ml Syringe IV ONE (20:42)
[2018-04-08] MEDS ORDERED: Glycopyrrolate 0.2 mg/ml (2ml vial) ONE (20:42)
--- NOTE | 2018-04-08 22:16 | PCM.SURG1 ---
Surgeon's Initial Post Op Note - Surgeon's Notes Surgeon: Jazmin Watson MD Gymnastics Coach Or Instructor: Tari Broussard PA-C, Ivone Douglas PA-C Type of Anesthesia: General Endo Anesthesia Administered By: Dr. 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 tourniquet: 56 min@300mmHg. 10 WBC per HPF Post-Operative Diagnosis: same Operation Performed: removal of prosthesis. I&D. placement of antibiotics spacer Specimen/Specimens Removed: posterior capsule and intramedullary tibia tissue culture Estimated Blood Loss: EBL {In ML}: 400 Blood Products Given: PRBC (2u PRBC), FFP (1) Drains Used: Hemovac Post-Op Condition: Fair Date of Surgery/Procedure: 04/08/18 Time of Surgery/Procedure: 22:16
[2018-04-08] MEDS ORDERED: HYDROmorphone 0.5 mg/0.5 ml ISec ONE ×2 (22:21→23:07)
[2018-04-08] MEDS ORDERED: HYDROmorphone 0.5 mg/0.5 ml ISec IVP PRN (22:22)
[2018-04-08] MEDS ORDERED: HYDROmorphone 0.5 mg/0.5 ml ISec IVP ONE ×2 (22:23→23:06)
[2018-04-08] MEDS ORDERED: Lactated Ringer's 1,000 ML IV SCH (22:30)
[2018-04-08 22:40] LABS: HEMOGLOBIN 8.9 g/dL (12.0-16.0)
[2018-04-09] MEDS: Linezolid 600 mg in D5W 300 ml 600 MG/300 ML BAG IVPB SCH ×3 (00:37→21:07)
[2018-04-09] MEDS: Miconazole 2% Vaginal Cream(45 gm) VG SCH (00:39)
[2018-04-09] MEDS ORDERED: HYDROmorphone 1 mg/ml ISec IVP STA (04:26)
[2018-04-09 05:02] LABS: BASO # 0.02 K/mm3 (0.0-2.0); BASO % 0.2 % (0.0-3.0); EOS # 0.1 (0.0-0.7); EOS % 0.5 % (1.5-5.0); GRAN # 9.17 (1.4-6.5); GRAN % 80.4 % (50.0-68.0); HEMOGLOBIN 8.4 g/dL (12.0-16.0); LYMPH # 1.4 (1.2-3.4); LYMPH % 12.4 % (22.0-35.0); MEAN CELL VOLUME 84.9 fl (80.0-105.0); MEAN CORPUSCULAR HEMOGLOBIN 28.9 pg (25.0-35.0); MONO # 0.7 (0.1-0.6); MONO % 6.5 % (1.0-6.0); RBC 2.91 10^6/uL (3.5-6.1); RED CELL DISTRIBUTION WIDTH 16.1 % (11.5-14.5); WHITE BLOOD COUNT 11.4 10^3/ul (4.5-11.0)
[2018-04-09 05:45] LABS: BLOOD UREA NITROGEN 13 mg/dL (7-21); CALCIUM 7.7 mg/dL (8.4-10.5); GFR NON-AFRICAN AMERICAN > 60
--- NOTE | 2018-04-09 07:23 | OP ---
PROCEDURE DATE: 04/08/2018 PREOPERATIVE DIAGNOSIS: Infected right total knee replacement. POSTOPERATIVE DIAGNOSIS: Infected right total knee replacement. PROCEDURE: Explantation of right total knee, irrigation and debridement, insertion of antibiotic spacer and application of incisional wound vacuum-assisted closure. SURGEON: Hernan Watson MD. BUTTON TUFTING MACHINE OPERATOR: Dr. Watson was assisted by Samantha Bazzi and Tamera Douglas, the physician assistants. Both physician assistants were scrubbed and present throughout the entire case and assisted in patient positioning, retraction throughout the case and wound closure. TYPE OF ANESTHESIA: General. COMPLICATIONS: None. ESTIMATED BLOOD LOSS: 400 mL. INDICATIONS FOR PROCEDURE: This is an 82-year-old female who approximately 7 weeks ago underwent a right total knee replacement. Postoperatively, the patient developed an open wound and was taken back to the OR and underwent irrigation and debridement and poly exchange. Intraoperative cultures at that time vancomycin-resistant Enterococcus. Recommendations were for explantation of the implant with irrigation and debridement and insertion of an antibiotic spacer. The risks, benefits and alternatives of the procedure were discussed with the patient including the possibility of recurrent infection and informed consent was obtained. OPERATIVE PROCEDURE: After surgical site was signed and verified in the preoperative holding area, the patient was taken to the operating room and placed supine on the operating room table. After administration of general anesthesia, A tourniquet was placed about the right thigh. Venodyne boot was placed on the nonoperative extremity. Care was taken to make sure bony prominences and nerves were well padded and protected and the right lower extremity was prepped and draped in the usual sterile fashion. The sutures were removed and incision was reincised. The patient was noted to have extensive hematoma and this was evacuated. Anaerobic, aerobic as well as AFB and fungal cultures were taken. At this point, once the arthrotomy was reincised and poly was removed. Next, using combination of oscillating saw and small osteotomes, both the femoral and tibial components were removed. The soft tissue frozen sections were taken at the posterior capsule of the femur as well as the tibia and was sent for a frozen section. Tissue cultures were also sent. At this point, the wound was inspected for any nonviable tissue and any tissue was sharply debrided. Curettes were used to curette the bony surfaces and any of the nonviable-appearing skin was also sharply incised. Once this was done, the wound was pulse lavaged with approximately 12 L of antibiotic saline solution. At this point, a new sterile field was placed and gloves were changed and the antibiotic spacer was prepared on the back table, which included gentamicin and vancomycin powder. The spacer block was then inserted with the knee in full extension. Once the cement was hardened, the patient was noted to have some stability with both varus and valgus stress. At this point, our arthrotomy was closed using #1 Vicryl suture. Subcutaneous tissue was closed using 0 Vicryl and 2-0 Vicryl suture and the skin was closed using 3-0 nylon. A DUDLEY incisional wound VAC was applied. A dressing was also placed and a knee immobilizer was placed. The patient was then awakened and taken to the recovery room in stable condition. Hernan Watson MD
--- NOTE | 2018-04-09 08:12 | CP.PCM.PN ---
Subjective - Date & Time of Evaluation Date of Evaluation: 04/09/18 Time of Evaluation: 07:00 - Subjective Subjective: Medicine Progress Note for Jose Manuel London PGY3 Patient seen and examined at bedside. Overnight patient was in a lot of pain as per nursing staff that resolved with Dilaudid. Patient is resting comfortably in bed this morning. She reports pain in the R knee. She denies palpitations, chest pain, shortness of breath, nausea/vomiting/diarrhea, fever/chills, numbness/tingling. Objective - Vital Signs/Intake and Output Vital Signs (last 24 hours): Temp Pulse Resp BP Pulse Ox 97.5 F L 79 18 114/71 99 04/09/18 07:38 04/09/18 07:38 04/09/18 07:38 04/09/18 07:38 04/09/18 07:38 Intake and Output: 04/09/18 04/09/18 06:59 18:59 Intake Total 780 Output Total 380 Balance 400 - Medications Medications: Current Medications Acetaminophen (Tylenol 325mg Tab) 650 mg PO Q6 [facility] Last Admin: 04/09/18 07:49 Dose: 650 mg Aspirin (Ecotrin) 81 mg PO DAILY [facility] Last Admin: 04/07/18 10:40 Dose: 81 mg Atenolol (Tenormin) 25 mg PO BID [facility] Last Admin: 04/08/18 09:10 Dose: 25 mg Atorvastatin Calcium (Lipitor) 20 mg PO HS [facility] Last Admin: 04/09/18 00:39 Dose: Not Given Digoxin (Digoxin) 0.125 mg PO DAILY [facility] Last Admin: 04/08/18 09:11 Dose: 0.125 mg Docusate Sodium (Colace) 100 mg PO BID [facility] Last Admin: 04/08/18 09:12 Dose: Not Given Enoxaparin Sodium (Lovenox) 70 mg SC Q12H [facility]; Protocol Last Admin: 04/07/18 10:45 Dose: 70 mg Famotidine (Pepcid) 40 mg PO HS [facility] Last Admin: 04/07/18 21:19 Dose: 40 mg Fluticasone Propionate (Flonase) 1 actuation NS DAILY [facility] Last Admin: 04/08/18 09:11 Dose: 1 spr Furosemide (Lasix) 40 mg PO DAILY [facility] Last Admin: 04/08/18 09:59 Dose: Not Given Linezolid (Zyvox 600mg/300ml D5w) 600 mg in 300 mls @ 167 mls/hr IVPB Q12 [facility] Stop: 05/02/18 22:01 Last Admin: 04/09/18 00:37 Dose: 167 mls/hr Miconazole Nitrate (Monistat 7 Vaginal Cream) 1 ea VG HS [facility] Stop: 04/14/18 22:01 Last Admin: 04/09/18 00:39 Dose: Not Given Nystatin (Nystop Topical Powder) 1 gm TOP BID [facility] Ondansetron HCl (Zofran Inj) 4 mg IVP Q6H PRN PRN Reason: Nausea/Vomiting Last Admin: 04/07/18 11:02 Dose: 4 mg Oxycodone HCl (Oxycodone Immediate Release Tab) 5 mg PO Q4H PRN PRN Reason: Pain, Mild (1-3) Oxycodone HCl (Oxycodone Immediate Release Tab) 10 mg PO Q4H PRN PRN Reason: Pain, moderate (4-7) Polyethylene Glycol (Miralax) 17 gm PO DAILY [facility] Last Admin: 04/08/18 09:12 Dose: Not Given Potassium Chloride (K-Dur 20 Meq Er Tab) 20 meq PO DAILY [facility] Last Admin: 04/08/18 09:12 Dose: Not Given Sennosides (Senokot Tab) 17.2 mg PO HS [facility] Last Admin: 04/07/18 21:19 Dose: Not Given Warfarin Sodium (Coumadin) 5 mg PO 1800 [facility] Last Admin: 04/06/18 17:17 Dose: 5 mg - Labs Labs: 04/09/18 04:50 04/09/18 04:50 PT 18.1 SECONDS (9.4-12.5) H 04/08/18 06:20 INR 1.56 04/08/18 06:20 APTT 32.9 Seconds (25.1-36.5) 04/01/18 20:03 - Constitutional Appears: No Acute Distress - Head Exam Head Exam: ATRAUMATIC, NORMAL INSPECTION, NORMOCEPHALIC - Eye Exam Eye Exam: Normal appearance, PERRL Pupil Exam: NORMAL ACCOMODATION, PERRL - ENT Exam ENT Exam: Mucous Membranes Moist - Respiratory Exam Respiratory Exam: Clear to Ausculation Bilateral, NORMAL BREATHING PATTERN. absent: Rales, Rhonchi, Wheezes - Cardiovascular Exam Cardiovascular Exam: Irregular Rhythm, +S1, +S2. absent: Tachycardia, Gallop, Rubs, Murmur - GI/Abdominal Exam GI & Abdominal Exam: Soft, Normal Bowel Sounds. absent: Rigid, Tenderness, Mass, Rebound - Extremities Exam Extremities Exam: Normal Capillary Refill. absent: Calf Tenderness, Pedal Edema Additional comments: R knee dressing in place. Hemovac in place- sanguinous drainage - Neurological Exam Neurological Exam: Alert, Awake, CN II-XII Intact, Oriented x3 - Psychiatric Exam Psychiatric exam: Normal Affect, Normal Mood - Skin Skin Exam: Dry, Warm Additional comments: Groin skin folds have erythema Assessment and Plan - Assessment and Plan (Free Text) Assessment: 1. R knee prosthesis infection - + for VRE - R prothesis removed and antibiotic space in place POD #1 2. A.fib - Coumadin on hold - Rate controlled 3. Cutaneous candidiasis 4. Vaginal candiasis - secondary to antibiotics 5. Essential HTN 6. CAD s/p PCI Plan: Labs and imaging reviewed. Patient was transfused 2U PRBC during procedure and had hematoma in R knee during both debridement and prothesis removal. Patient went into rapid a.fib after surgery that resolved after pain control. Cardiology was consulted. Discussed with both ortho and cardiology and will hold anticoagulation (ASA, Coumadin) for hematoma and will restart tomorrow. Will continue to monitor Hgb. Patient is on Digoxin and Atenolol for a.fib. As per nursing staff, patient having white vaginal discharge. Will give Monistat and Nystatin powder in groin region for dermatitis. Pain is controlled and patient is tolerating diet. PICC line is in place and functioning. Continue Zyvox as per ID. Case seen, discussed and reviewed with Dr. Christin Boothe PGY3
--- NOTE | 2018-04-09 08:43 | PN ---
DATE: 04/08/2018 SUBJECTIVE: The patient is seen earlier this morning in room 572, bed 1. No fevers. No chills. She is awake and alert. PHYSICAL EXAMINATION: VITAL SIGNS: On exam, temperature of 100.2, blood pressure is 105/60, respiratory rate of 22. HEENT: Examination of HEENT is unremarkable. NECK: Supple. LUNGS: Have decreased breath sounds. HEART: Normal S1, S2. ABDOMEN: Soft, nontender. LABORATORY DATA: Laboratory examination reveals the white count is 5.9, hemoglobin of 8. Chemistries are noted. Multiple cultures are positive for VRE, coag-negative Staph. Review of orders reveals the patient to be on Zyvox. 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 The patient is for OR today and will need to treat the patient with Zyvox. As of this morning, the patient was awaiting for surgery for possible irrigation and debridement of the right knee and removal of total prosthetic knee and insertion of an antibiotic spacer. We will follow closely with you. Dominick Simeon MD
[2018-04-09] MEDS: Digoxin 125 mcg (0.125 mg) Tab PO SCH (09:26)
[2018-04-09] MEDS: POLYETHYLENE GLYCOL 3350 17 GM/Dose PACKET PO SCH (09:28)
[2018-04-09] MEDS: Potassium Chloride 20 mEq ER Tab PO SCH (09:28)
[2018-04-09] MEDS: Fluticasone Nasal 50 mcg/Spray NS SCH (09:28)
[2018-04-09] MEDS: Nystatin 100,000 Units/gm Topical Pow(15 gm) TOP SCH ×2 (09:29→20:46)
[2018-04-09] MEDS ORDERED: Nystatin 100,000 Units/gm Topical Pow(15 gm) TOP SCH (10:00)
[2018-04-09 10:26] LABS: INR 1.26; PARTIAL THROMBOPLASTIN TIME 29.7 Seconds (25.1-36.5); PROTHROMBIN TIME 14.5 SECONDS (9.4-12.5)
--- NOTE | 2018-04-09 10:31 | CP.PCM.PN ---
Subjective - Date & Time of Evaluation Date of Evaluation: 04/09/18 Time of Evaluation: 10:29 - Subjective Subjective: Pt seen. Agree with PA note. Follow cultures. Continue current antibiotics for now. PT for partial weight bearing RLE Plan for TCU after first dressing change. Objective - Vital Signs/Intake and Output Vital Signs (last 24 hours): Temp Pulse Resp BP Pulse Ox 97.5 F L 83 18 117/72 99 04/09/18 07:38 04/09/18 09:27 04/09/18 07:38 04/09/18 09:27 04/09/18 07:38 Intake and Output: 04/09/18 04/09/18 06:59 18:59 Intake Total 780 Output Total 380 Balance 400 - Medications Medications: Current Medications Acetaminophen (Tylenol 325mg Tab) 650 mg PO Q6 [facility] Last Admin: 04/09/18 07:49 Dose: 650 mg Aspirin (Ecotrin) 81 mg PO DAILY [facility] Last Admin: 04/07/18 10:40 Dose: 81 mg Atenolol (Tenormin) 25 mg PO BID [facility] Last Admin: 04/09/18 09:27 Dose: 25 mg Atorvastatin Calcium (Lipitor) 20 mg PO HS [facility] Last Admin: 04/09/18 00:39 Dose: Not Given Digoxin (Digoxin) 0.125 mg PO DAILY [facility] Last Admin: 04/09/18 09:26 Dose: 0.125 mg Docusate Sodium (Colace) 100 mg PO BID [facility] Last Admin: 04/09/18 09:29 Dose: 100 mg Enoxaparin Sodium (Lovenox) 70 mg SC Q12H [facility]; Protocol Last Admin: 04/07/18 10:45 Dose: 70 mg Famotidine (Pepcid) 40 mg PO HS [facility] Last Admin: 04/07/18 21:19 Dose: 40 mg Fluticasone Propionate (Flonase) 1 actuation NS DAILY [facility] Last Admin: 04/09/18 09:28 Dose: 1 spr Furosemide (Lasix) 40 mg PO DAILY [facility] Last Admin: 04/09/18 09:27 Dose: 40 mg Linezolid (Zyvox 600mg/300ml D5w) 600 mg in 300 mls @ 167 mls/hr IVPB Q12 [facility] Stop: 05/02/18 22:01 Last Admin: 04/09/18 09:25 Dose: 167 mls/hr Miconazole Nitrate (Monistat 7 Vaginal Cream) 1 ea VG HS [facility] Stop: 04/14/18 22:01 Last Admin: 04/09/18 00:39 Dose: Not Given Nystatin (Nystop Topical Powder) 0 gm TOP BID [facility] Last Admin: 04/09/18 09:29 Dose: 1 applic Ondansetron HCl (Zofran Inj) 4 mg IVP Q6H PRN PRN Reason: Nausea/Vomiting Last Admin: 04/09/18 10:27 Dose: 4 mg Oxycodone HCl (Oxycodone Immediate Release Tab) 5 mg PO Q4H PRN PRN Reason: Pain, Mild (1-3) Oxycodone HCl (Oxycodone Immediate Release Tab) 10 mg PO Q4H PRN PRN Reason: Pain, moderate (4-7) Polyethylene Glycol (Miralax) 17 gm PO DAILY [facility] Last Admin: 04/09/18 09:28 Dose: 17 gm Potassium Chloride (K-Dur 20 Meq Er Tab) 20 meq PO DAILY [facility] Last Admin: 04/09/18 09:28 Dose: 20 meq Sennosides (Senokot Tab) 17.2 mg PO HS [facility] Last Admin: 04/07/18 21:19 Dose: Not Given Warfarin Sodium (Coumadin) 4 mg PO 1800 [facility]; Protocol - Labs Labs: 04/09/18 04:50 04/09/18 04:50 PT 14.5 SECONDS (9.4-12.5) H 04/09/18 10:00 INR 1.26 04/09/18 10:00 APTT 29.7 Seconds (25.1-36.5) 04/09/18 10:00
--- NOTE | 2018-04-09 10:56 | CP.PCM.PN ---
Subjective - Date & Time of Evaluation Date of Evaluation: 04/09/18 Time of Evaluation: 08:18 - Subjective Subjective: Patient seen and examined. Alert and awake laying in bed. Patient went into A. Fib postoperatively, primary care and cardiology was consulted and felt patient did not need to go on telemetry as she is rate controlled and has a chronic h istory of A. Fib Afebrile WBC 11.4 Hgb 8.4 R knee: dressings dry clean and intact. Hemovac in place on suction and DUDLEY on. Calf and thigh are soft and non-tender. NVI distally POD#1 s/p explant infected right total knee Discussed with Dr. Medrano and Dr. Boothe we will resume her therapeutic dose of Warfarin tomorrow Cont abx per ID Pending cultures Dressing changes tomorrow Discussed above with Dr. Watson, agrees with above. Objective - Vital Signs/Intake and Output Vital Signs (last 24 hours): Temp Pulse Resp BP Pulse Ox 97.5 F L 79 18 114/71 99 04/09/18 07:38 04/09/18 07:38 04/09/18 07:38 04/09/18 07:38 04/09/18 07:38 Intake and Output: 04/09/18 04/09/18 06:59 18:59 Intake Total 780 Output Total 380 Balance 400 - Medications Medications: Current Medications Acetaminophen (Tylenol 325mg Tab) 650 mg PO Q6 [facility] Last Admin: 04/09/18 07:49 Dose: 650 mg Aspirin (Ecotrin) 81 mg PO DAILY [facility] Last Admin: 04/07/18 10:40 Dose: 81 mg Atenolol (Tenormin) 25 mg PO BID [facility] Last Admin: 04/08/18 09:10 Dose: 25 mg Atorvastatin Calcium (Lipitor) 20 mg PO HS [facility] Last Admin: 04/09/18 00:39 Dose: Not Given Digoxin (Digoxin) 0.125 mg PO DAILY [facility] Last Admin: 04/08/18 09:11 Dose: 0.125 mg Docusate Sodium (Colace) 100 mg PO BID [facility] Last Admin: 04/08/18 09:12 Dose: Not Given Enoxaparin Sodium (Lovenox) 70 mg SC Q12H [facility]; Protocol Last Admin: 04/07/18 10:45 Dose: 70 mg Famotidine (Pepcid) 40 mg PO [facility] Last Admin: 04/07/18 21:19 Dose: 40 mg Fluticasone Propionate (Flonase) 1 actuation NS DAILY [facility] Last Admin: 04/08/18 09:11 Dose: 1 spr Furosemide (Lasix) 40 mg PO DAILY [facility] Last Admin: 04/08/18 09:59 Dose: Not Given Linezolid (Zyvox 600mg/300ml D5w) 600 mg in 300 mls @ 167 mls/hr IVPB Q12 [facility] Stop: 05/02/18 22:01 Last Admin: 04/09/18 00:37 Dose: 167 mls/hr Miconazole Nitrate (Monistat 7 Vaginal Cream) 1 ea VG [facility] Stop: 04/14/18 22:01 Last Admin: 04/09/18 00:39 Dose: Not Given Nystatin (Nystop Topical Powder) 0 gm TOP BID [facility] Ondansetron HCl (Zofran Inj) 4 mg IVP Q6H PRN PRN Reason: Nausea/Vomiting Last Admin: 04/07/18 11:02 Dose: 4 mg Oxycodone HCl (Oxycodone Immediate Release Tab) 5 mg PO Q4H PRN PRN Reason: Pain, Mild (1-3) Oxycodone HCl (Oxycodone Immediate Release Tab) 10 mg PO Q4H PRN PRN Reason: Pain, moderate (4-7) Polyethylene Glycol (Miralax) 17 gm PO DAILY [facility] Last Admin: 04/08/18 09:12 Dose: Not Given Potassium Chloride (K-Dur 20 Meq Er Tab) 20 meq PO DAILY [facility] Last Admin: 04/08/18 09:12 Dose: Not Given Sennosides (Senokot Tab) 17.2 mg PO [facility] Last Admin: 04/07/18 21:19 Dose: Not Given Warfarin Sodium (Coumadin) 5 mg PO 1800 [facility] Last Admin: 04/06/18 17:17 Dose: 5 mg - Labs Labs: 04/09/18 04:50 04/09/18 04:50 PT 18.1 SECONDS (9.4-12.5) H 04/08/18 06:20 INR 1.56 04/08/18 06:20 APTT 32.9 Seconds (25.1-36.5) 04/01/18 20:03 Assessment and Plan (1) Infection of right knee Status: Acute
--- NOTE | 2018-04-09 13:13 | RAD ---
Date of service: 04/08/2018 PROCEDURE: Right Knee Radiographs. HISTORY: pt in pacu s/p explant COMPARISON: 04/02/2018. FINDINGS: BONES: Status post removal of prior implant. JOINTS: Postoperative findings at the surgical site. JOINT EFFUSION: Surgical drains identified. OTHER FINDINGS: None. IMPRESSION: Satisfactory postoperative status.
--- NOTE | 2018-04-09 13:18 | CARD ---
APPROVED REPORT Date of service: 04/09/2018 EXAM: Two-dimensional and M-mode echocardiogram with Doppler and color Doppler. INDICATION Atrial Fibrillation POST-OP 2D DIMENSIONS Left Atrium (2D)5.3 (1.6-4.0cm)IVSd1.2 (0.7-1.1cm) LVDd4.7 (3.9-5.9cm)PWd1.3 (0.7-1.1cm) LVDs3.2 (2.5-4.0cm)FS (%) 32.0 % LVEF (%)60.0 (>50%) M-Mode DIMENSIONS Aortic Root3.90 (2.2-3.7cm)Aortic Cusp Exc.1.30 (1.5-2.0cm) Aortic Valve AoV Peak Ldehslxh870.0cm/[place] Peak GR.10mmHg Mitral Valve E/A ratio0.0 TDI E/Lateral E'0.0E/Medial E'0.0 Pulmonary Valve PV Peak Jirfejem71.2cm/sPV Peak Grad.2mmHg Tricuspid Valve TR Peak [id number] [id number] Peak Gr.55mmHg [id number] LEFT VENTRICLE The left ventricle is normal size. There is borderline concentric left ventricular hypertrophy. The left ventricular function is normal. LV Ej.Fr: 60-65%. RIGHT VENTRICLE The right ventricle is normal size. The right ventricular systolic function is normal. ATRIA The left atrium is moderately dilated. The right atrium is moderately dilated. AORTIC VALVE Aortic Valve is Calcified but Aortic Valve Opening is Normal. MITRAL VALVE The mitral valve is normal in structure. Mitral regurgitation is mild. TRICUSPID VALVE The tricuspid valve is normal in structure. There is moderate to severe tricuspid regurgitation.RVSP 65mm Hg. Severe Pulmonary Hypertension. PERICARDIAL EFFUSION There is no pericardial effusion. <Conclusion> The left ventricle is normal size. There is borderline concentric left ventricular hypertrophy. The left ventricular function is normal. LV Ej.Fr: 60-65%. The right ventricle is normal size. The right ventricular systolic function is normal. The left atrium is moderately dilated. The right atrium is moderately dilated. Aortic Valve is Calcified but Aortic Valve Opening is Normal. The mitral valve is normal in structure. Mitral regurgitation is mild. The tricuspid valve is normal in structure. There is moderate to severe tricuspid regurgitation.RVSP 65mm Hg. Severe Pulmonary Hypertension.
--- NOTE | 2018-04-09 17:15 | CON ---
DATE: 04/09/2018 REASON FOR CONSULTATION: Followup atrial fibrillation, status post knee surgery. BRIEF CLINICAL HISTORY: This is an 82-year-old female with past medical history significant for chronic atrial fibrillation on Coumadin at home and atenolol, admitted 6 weeks ago initially because of osteoarthritis with total right knee replacement done on 02/18/2018, later on developed hematoma and ultimately this admission that is 03/31/2018, patient had explanted knee joint prosthesis. Patient postoperatively noticed AFib. AFib is not new. Patient has chronic atrial fibrillation. Denies any chest pain, shortness of breath, any palpitation. PAST MEDICAL HISTORY: Significant for hypertension, coronary artery disease, atrial fibrillation, osteoarthritis, status post PTCA in the past on Coumadin. Past history as mentioned, history significant for coronary artery disease, hypertension, hyperlipidemia, history [place]CA [place] [address] Spangler, history of atrial fibrillation. PAST SURGICAL HISTORY: Significant for a fractured tibia in 1989, history of a total right knee joint replacement in 02/18/2018, history of explanted right knee on 03/31/2018. PREVIOUS CARDIAC WORKUP: As follows, patient had stress test on 02/22/2016 that shows ejection fraction 61% normal myocardial perfusion study, no significant change from 11/13/2014. Last cardiac catheterization on 10/09/[address] Spangler that shows patent stent in LAD, 45% stenosis, medical treatment recommended. Ejection fraction 60%. Last echo in [facility] on 09/24/2012 that shows no pericardial effusion, mildly dilated LV systolic function, mild MR, TR noted, RV systolic pressure of 50. CURRENT MEDICATIONS: At home, patient was taking Coumadin 3.5 mg daily, simvastatin 40 mg daily, Potassium 20 mEq, Lasix 40, digoxin 0.125, atenolol 25, aspirin 81 mg daily. REVIEW OF SYSTEMS: As per HPI. PHYSICAL EXAMINATION: VITAL SIGNS: As follows, temperature afebrile, heart rate 80, blood pressure 117/72. HEENT: PERRLA. Extraocular muscles intact. NECK: Supple. No carotid bruits or thyromegaly. CHEST: Clear to auscultation. HEART: S1 and S2 regular. ABDOMEN: Soft. EXTREMITIES: Clubbing and cyanosis negative. LABORATORY DATA: Blood workup as follows, WBC 11.5, hemoglobin 8.5, hematocrit 24.7, platelet count 152. Chemistry shows sodium 134, potassium 4.2, chloride 101, carbon dioxide 27, anion gap of 11, BUN 13, creatinine 0.7. Dig level on 02/12 was 0.8. EKG shows AFib with occasional PVCs. IMPRESSION: An 82-year-old female with past medical history significant for chronic atrial fibrillation, coronary artery disease, status post percutaneous transluminal coronary angioplasty in 1999. Repeat catheterization done on 10/09/2012, left anterior descending 45% stenosis, medical treatment recommended. Last stress test on 02/22/2016, ejection fraction 64%, normal myocardial perfusion study, no significant change from 11/13/2014. Last echo in [place] on 09/24/2012, no pericardial effusion, mitral regurgitation, tricuspid regurgitation, right ventricular systolic pressure 75 consistent with [id number] pulmonary hypertension, admitted after having explanted right knee. Initially patient on 02/18, patient had knee joint replacement, which later on gets infected and later on hematoma so it was discontinued. Postoperatively, patient is still in atrial fibrillation. RECOMMENDATIONS: We will start digoxin. We will start beta-cortez. We will start Coumadin, low dose. Discussed with Dr. Watson's PA and explained the patient's condition and line of the treatment, also discussed with resident, Maru Boothe. We will follow. We will get an echo to assess LV function. We will resume back digoxin. We will resume back Coumadin from tomorrow. Continue atenolol. We will also get lipid profile, TSH, hemoglobin A1c and echo today. We will also get lipid profile, TSH, hemoglobin A1c tomorrow, calcium, alk phos as well. Thank you, Dr. Waller, for providing us the opportunity in taking care of the patient, Norma Segura. Gabbi Medrano MD
--- NOTE | 2018-04-10 01:55 | PN ---
DATE: 04/09/2018 LOCATION: The patient was seen earlier this morning in room 572, bed 1. SUBJECTIVE: The patient is in bed, no acute distress, nontoxic. PHYSICAL EXAMINATION: VITAL SIGNS: Temperature 97, T-max was 100.2 yesterday, blood pressure is 114/70, respiratory rate of 18. HEENT: Examination of HEENT is unremarkable. NECK: Supple. LUNGS: Have decreased breath sounds. HEART: Normal S1 and S2. ABDOMEN: Soft. LABORATORY DATA: Noted. Cultures are noted. Repeat cultures from yesterday are pending. Dr. Hernan Watson's note is reviewed. 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 Currently, on Zyvox. The patient was taken to the OR yesterday for explantation of right total knee prosthesis and insertion of antibiotic spacer, incision and drainage of right knee. We will follow culture results from yesterday. Dominick Simeon MD
[2018-04-10] MEDS: oxyCODONE 5 mg Immediate Release Tab PO PRN ×3 (02:06→22:17)
--- NOTE | 2018-04-10 06:32 | CP.PCM.PN ---
<Maru Boothe - Last Filed: 04/10/18 15:25> Subjective - Date & Time of Evaluation Date of Evaluation: 04/10/18 Time of Evaluation: 07:00 - Subjective Subjective: Medicine Progress Note for Jose Manuel London PGY3 Patient seen and examined at bedside. There were no acute overnight events as per nursing staff. Patient reports having some pain in her R knee. Patient denies chest pain, shortness of breath, numbness/tingling, fever/chills, nausea/vomiting/diarrhea, dysuria/hematuria. Objective - Vital Signs/Intake and Output Vital Signs (last 24 hours): Temp Pulse Resp BP Pulse Ox 98.1 F 72 20 124/102 H 99 04/09/18 23:18 04/09/18 23:18 04/09/18 23:18 04/09/18 23:18 04/09/18 23:18 Intake and Output: 04/09/18 04/10/18 18:59 06:59 Intake Total 540 Balance 540 - Medications Medications: Current Medications Acetaminophen (Tylenol 325mg Tab) 650 mg PO Q6 [facility] Last Admin: 04/10/18 05:07 Dose: 650 mg Aspirin (Ecotrin) 81 mg PO DAILY [facility] Last Admin: 04/07/18 10:40 Dose: 81 mg Atenolol (Tenormin) 25 mg PO BID [facility] Last Admin: 04/09/18 18:38 Dose: Not Given Atorvastatin Calcium (Lipitor) 20 mg PO HS [facility] Last Admin: 04/09/18 21:06 Dose: 20 mg Digoxin (Digoxin) 0.125 mg PO DAILY [facility] Last Admin: 04/09/18 09:26 Dose: 0.125 mg Docusate Sodium (Colace) 100 mg PO BID [facility] Last Admin: 04/09/18 18:38 Dose: Not Given Famotidine (Pepcid) 40 mg PO HS [facility] Last Admin: 04/09/18 21:06 Dose: 40 mg Fluticasone Propionate (Flonase) 1 actuation NS DAILY [facility] Last Admin: 04/09/18 09:28 Dose: 1 spr Furosemide (Lasix) 40 mg PO DAILY [facility] Last Admin: 04/09/18 09:27 Dose: 40 mg Linezolid (Zyvox 600mg/300ml D5w) 600 mg in 300 mls @ 167 mls/hr IVPB Q12 [facility] Stop: 05/02/18 22:01 Last Admin: 04/09/18 21:07 Dose: 167 mls/hr Miconazole Nitrate (Monistat 7 Vaginal Cream) 1 ea VG HS [facility] Stop: 04/14/18 22:01 Last Admin: 04/09/18 00:39 Dose: Not Given Nystatin (Nystop Topical Powder) 0 gm TOP BID [facility] Last Admin: 04/09/18 20:46 Dose: Not Given Ondansetron HCl (Zofran Inj) 4 mg IVP Q6H PRN PRN Reason: Nausea/Vomiting Last Admin: 04/09/18 17:37 Dose: 4 mg Oxycodone HCl (Oxycodone Immediate Release Tab) 5 mg PO Q4H PRN PRN Reason: Pain, Mild (1-3) Last Admin: 04/10/18 02:06 Dose: 5 mg Oxycodone HCl (Oxycodone Immediate Release Tab) 10 mg PO Q4H PRN PRN Reason: Pain, moderate (4-7) Last Admin: 04/09/18 10:57 Dose: 10 mg Polyethylene Glycol (Miralax) 17 gm PO DAILY [facility] Last Admin: 04/09/18 09:28 Dose: 17 gm Potassium Chloride (K-Dur 20 Meq Er Tab) 20 meq PO DAILY [facility] Last Admin: 04/09/18 09:28 Dose: 20 meq Sennosides (Senokot Tab) 17.2 mg PO HS [facility] Last Admin: 04/09/18 21:06 Dose: 17.2 mg Warfarin Sodium (Coumadin) 4 mg PO 1800 [facility]; Protocol - Labs Labs: 04/09/18 04:50 04/09/18 04:50 PT 14.5 SECONDS (9.4-12.5) H 04/09/18 10:00 INR 1.26 04/09/18 10:00 APTT 29.7 Seconds (25.1-36.5) 04/09/18 10:00 - Constitutional Appears: No Acute Distress - Head Exam Head Exam: ATRAUMATIC, NORMAL INSPECTION, NORMOCEPHALIC - Eye Exam Eye Exam: Normal appearance, PERRL Pupil Exam: NORMAL ACCOMODATION - ENT Exam ENT Exam: Mucous Membranes Moist - Respiratory Exam Respiratory Exam: Clear to Ausculation Bilateral, NORMAL BREATHING PATTERN. ab sent: Rales, Rhonchi, Wheezes - Cardiovascular Exam Cardiovascular Exam: REGULAR RHYTHM, +S1, +S2. absent: Gallop, Rubs, Murmur - GI/Abdominal Exam GI & Abdominal Exam: Soft, Normal Bowel Sounds. absent: Rigid, Tenderness, Mass, Rebound - Extremities Exam Extremities Exam: absent: Calf Tenderness, Pedal Edema Additional comments: R knee dressing in place- draining sanguinous - Neurological Exam Neurological Exam: Alert, Awake, CN II-XII Intact, Oriented x3 - Psychiatric Exam Psychiatric exam: Normal Affect, Normal Mood - Skin Skin Exam: Dry, Warm Assessment and Plan - Assessment and Plan (Free Text) Assessment: 1. R knee prosthesis infection - + for VRE - R prothesis removed and antibiotic space in place POD #2 2. Anemia - secondary to blood loss from surgery - pt had 2U in OR 3. A.fib - Coumadin on hold - Rate controlled 4. Cutaneous candidiasis 5. Vaginal candiasis - secondary to antibiotics 6. Essential HTN 7. CAD s/p PCI Plan: Labs and imaging reviewed. Will transfuse 2 more U PRBC. Will hold Coumadin and ASA today. Continue to monitor Hgb. Pain is controlled and is on stool softeners. Continue Digoxin and Atenolol of A.fib. Monistat and Nystatin for fungal infection. Patient is tolerating diet. She is on Zyvox. She will go to TCU for further rehabilitation once medically optimized. Case seen, discussed and reviewed with Dr. Christin Boothe PGY3 <Ajay Waller S - Last Filed: 04/13/18 14:44> Objective - Vital Signs/Intake and Output Vital Signs (last 24 hours): Temp Pulse Resp BP Pulse Ox 98.0 F 59 L 19 136/64 99 04/11/18 14:00 04/11/18 14:00 04/11/18 14:00 04/11/18 17:45 04/11/18 14:00 - Labs Labs: 04/11/18 06:15 04/11/18 06:15 PT 14.5 SECONDS (9.4-12.5) H 04/09/18 10:00 INR 1.26 04/09/18 10:00 APTT 29.7 Seconds (25.1-36.5) 04/09/18 10:00 Assessment and Plan - Assessment and Plan (Free Text) Plan: Pt seen and examined by me. I have reviewed the note by the bacteriologist medical. The case was discussed and reviewed with the resident. I reviewed the medications and labs. Pt with R knee infection. Pt is on Coumadin for A fib. On Dig and Atenolol for Afib. She is going to TCU. I spoke to daughter. She will see GI for nausea.
[2018-04-10 07:40] LABS: BASO # 0.02 K/mm3 (0.0-2.0); BASO % 0.3 % (0.0-3.0); EOS # 0.2 (0.0-0.7); EOS % 2.6 % (1.5-5.0); GRAN # 4.93 (1.4-6.5); GRAN % 70.3 % (50.0-68.0); LYMPH # 1.5 (1.2-3.4); LYMPH % 20.8 % (22.0-35.0); MEAN CELL VOLUME 84.6 fl (80.0-105.0); MEAN CORPUSCULAR HEMOGLOBIN 28.2 pg (25.0-35.0); MEAN CORPUSCULAR HGB CONC 33.3 g/dl (31.0-37.0); MEAN PLATELET VOLUME 9.7 fl (7.0-11.0); MONO # 0.4 (0.1-0.6); RBC 2.27 10^6/uL (3.5-6.1); RED CELL DISTRIBUTION WIDTH 16.4 % (11.5-14.5)
[2018-04-10 07:41] LABS: HEMOGLOBIN 6.4 g/dL (12.0-16.0)
[2018-04-10 07:42] LABS: BLOOD UREA NITROGEN 15 mg/dL (7-21); CALCIUM 7.6 mg/dL (8.4-10.5); GFR NON-AFRICAN AMERICAN > 60; HDL CHOLESTEROL 16 mg/dL (29-60)
[2018-04-10 07:53] LABS: LDL CHOLESTEROL 33 mg/dL (0-129)
--- NOTE | 2018-04-10 08:41 | CP.PCM.PN ---
Subjective - Date & Time of Evaluation Date of Evaluation: 04/10/18 Time of Evaluation: 07:10 - Subjective Subjective: Awake, no distress Reason for consultation and follow up: Cardiac evaluation of atrial fibrillation, status post right knee surgery Seen and examined by me and Dr. Medrano Objective - Vital Signs/Intake and Output Vital Signs (last 24 hours): Temp Pulse Resp BP Pulse Ox 97.4 F L 73 18 124/57 L 99 04/10/18 06:00 04/10/18 06:00 04/10/18 06:00 04/10/18 06:00 04/10/18 06:00 Intake and Output: 04/10/18 04/10/18 06:59 18:59 Intake Total 540 Balance 540 - Medications Medications: Current Medications Acetaminophen (Tylenol 325mg Tab) 650 mg PO Q6 [facility] Last Admin: 04/10/18 05:07 Dose: 650 mg Aspirin (Ecotrin) 81 mg PO DAILY [facility] Last Admin: 04/07/18 10:40 Dose: 81 mg Atenolol (Tenormin) 25 mg PO BID [facility] Last Admin: 04/09/18 18:38 Dose: Not Given Atorvastatin Calcium (Lipitor) 20 mg PO [facility] Last Admin: 04/09/18 21:06 Dose: 20 mg Digoxin (Digoxin) 0.125 mg PO DAILY [facility] Last Admin: 04/09/18 09:26 Dose: 0.125 mg Docusate Sodium (Colace) 100 mg PO BID [facility] Last Admin: 04/09/18 18:38 Dose: Not Given Famotidine (Pepcid) 40 mg PO [facility] Last Admin: 04/09/18 21:06 Dose: 40 mg Fluticasone Propionate (Flonase) 1 actuation NS DAILY [facility] Last Admin: 04/09/18 09:28 Dose: 1 spr Furosemide (Lasix) 40 mg PO DAILY [facility] Last Admin: 04/09/18 09:27 Dose: 40 mg Linezolid (Zyvox 600mg/300ml D5w) 600 mg in 300 mls @ 167 mls/hr IVPB Q12 [facility] Stop: 05/02/18 22:01 Last Admin: 04/09/18 21:07 Dose: 167 mls/hr Miconazole Nitrate (Monistat 7 Vaginal Cream) 1 ea VG [facility] Stop: 04/14/18 22:01 Last Admin: 04/09/18 00:39 Dose: Not Given Nystatin (Nystop Topical Powder) 0 gm TOP BID [facility] Last Admin: 04/09/18 20:46 Dose: Not Given Ondansetron HCl (Zofran Inj) 4 mg IVP Q6H PRN PRN Reason: Nausea/Vomiting Last Admin: 04/09/18 17:37 Dose: 4 mg Oxycodone HCl (Oxycodone Immediate Release Tab) 5 mg PO Q4H PRN PRN Reason: Pain, Mild (1-3) Last Admin: 04/10/18 07:17 Dose: 5 mg Oxycodone HCl (Oxycodone Immediate Release Tab) 10 mg PO Q4H PRN PRN Reason: Pain, moderate (4-7) Last Admin: 04/09/18 10:57 Dose: 10 mg Polyethylene Glycol (Miralax) 17 gm PO DAILY [facility] Last Admin: 04/09/18 09:28 Dose: 17 gm Potassium Chloride (K-Dur 20 Meq Er Tab) 20 meq PO DAILY [facility] Last Admin: 04/09/18 09:28 Dose: 20 meq Sennosides (Senokot Tab) 17.2 mg PO HS [facility] Last Admin: 04/09/18 21:06 Dose: 17.2 mg Warfarin Sodium (Coumadin) 4 mg PO 1800 [facility]; Protocol - Labs Labs: 04/10/18 06:15 04/10/18 06:15 PT 14.5 SECONDS (9.4-12.5) H 04/09/18 10:00 INR 1.26 04/09/18 10:00 APTT 29.7 Seconds (25.1-36.5) 04/09/18 10:00 - Constitutional Appears: Non-toxic, No Acute Distress - ENT Exam ENT Exam: Mucous Membranes Dry - Respiratory Exam Respiratory Exam: Decreased Breath Sounds, Clear to Ausculation Bilateral, NORMAL BREATHING PATTERN - Cardiovascular Exam Cardiovascular Exam: +S1, +S2 (denies) Additional comments: denies chest pain - GI/Abdominal Exam GI & Abdominal Exam: Soft, Normal Bowel Sounds - Exam Additional comments: luna catheter - Extremities Exam Additional comments: left knee immobilizer, with hemovac - Neurological Exam Neurological Exam: Alert, Awake, Oriented x3 - Psychiatric Exam Psychiatric exam: Normal Affect, Normal Mood - Skin Skin Exam: Dry, Normal Color, Warm Assessment and Plan - Assessment and Plan (Free Text) Assessment: An 82 year old female status post explantation of knee joint prosthesis, Postoperatively, patient had atrial fibrillation thus cardiac consult was becka galaviz. Patient has history of chronic atrial fibrillation, hypertension, coronary artery disease with PTCA (1999),last cardiac cath 10/09/2012- showed patent stents, osteoarthritis, fractured tibia in 1989, total right knee replacement 02/18/18, explanted right knee replacement 03/31/18, Plan: Echo done-LVEF 60-65%, right and left atrium moderately dilated, calcified aortic valve but normal aortic valve opening Mild MR. Moderate to severe TR RVSP 65mmHg Severe pulmonary hypertension Denies shortness of breath, denies chest pain Controlled heart rate and blood pressure Low hemoglobin and hematocrit 6.4/19.2 today Transfuse PRBC Hold Coumadin and Aspirin On Tenormin 25 mg BID,Lipitor 20 mg daily,Digoxin 0.125mg daily, Lasix 40 mg daily,Kdur 20 meq daily, ASA 81 mg daily, Coumadin 4 mg daily Continue IV antibiotics per ID Continue current treatment Continue current medications Chart reviewed Will follow up Plan and treatment discussed with Dr. Medrano
[2018-04-10] MEDS ORDERED: Potassium Chloride 20 mEq ER Tab PO STA (09:21)
[2018-04-10 09:33] LABS: HEMOGLOBIN 6.9 g/dL (12.0-16.0)
[2018-04-10] MEDS ORDERED: Magnesium Sulfate 2 gm/50 ml 2 GM/50 ML BAG IVPB ONE (09:45)
[2018-04-10] MEDS: Fluticasone Nasal 50 mcg/Spray NS SCH (10:19)
[2018-04-10] MEDS: Potassium Chloride 20 mEq ER Tab PO SCH (10:55)
[2018-04-10] MEDS: Nystatin 100,000 Units/gm Topical Pow(15 gm) TOP SCH ×2 (10:55→18:24)
[2018-04-10] MEDS: Linezolid 600 mg in D5W 300 ml 600 MG/300 ML BAG IVPB SCH ×2 (10:57→22:18)
[2018-04-10] MEDS: POLYETHYLENE GLYCOL 3350 17 GM/Dose PACKET PO SCH (10:58)
[2018-04-10] MEDS: Magnesium Oxide 400 mg Tab UD PO SCH ×2 (11:07→18:25)
[2018-04-10] MEDS: Digoxin 125 mcg (0.125 mg) Tab PO SCH (11:07)
--- NOTE | 2018-04-10 12:30 | CP.PCM.PN ---
Subjective - Date & Time of Evaluation Date of Evaluation: 04/10/18 Time of Evaluation: 12:25 - Subjective Subjective: POD#2. Patient seen and examined. Laying in bed. Alert and awake. Denies any significant pain. Knee immobilizer on. Patient using incentive spirometer Afebrile Hgb 6.9 with repeat hgb WBC 7.0 R knee: dressings, dudley and hemovac removed. Bloody drainage on DUDLEY. Incision is clean and intact. Sutures in place. No active drainage. Diffuse ecchymosis. Incision was cleaned and new DUDLEY applied. Thigh and calf are soft and non- tender. NVI distally POD#2 s/p explant infected RTKA Will give 2 units PRBCs Monitor hgb Cont abx per ID pending culture results Objective - Vital Signs/Intake and Output Vital Signs (last 24 hours): Temp Pulse Resp BP Pulse Ox 97.4 F L 77 18 120/64 99 04/10/18 06:00 04/10/18 11:10 04/10/18 06:00 04/10/18 11:10 04/10/18 06:00 Intake and Output: 04/10/18 04/10/18 06:59 18:59 Intake Total 540 Balance 540 - Medications Medications: Current Medications Acetaminophen (Tylenol 325mg Tab) 650 mg PO Q6 [facility] Last Admin: 04/10/18 11:05 Dose: 650 mg Aspirin (Ecotrin) 81 mg PO DAILY [facility] Last Admin: 04/07/18 10:40 Dose: 81 mg Atenolol (Tenormin) 25 mg PO BID [facility] Last Admin: 04/10/18 11:10 Dose: 25 mg Atorvastatin Calcium (Lipitor) 20 mg PO [facility] Last Admin: 04/09/18 21:06 Dose: 20 mg Digoxin (Digoxin) 0.125 mg PO DAILY [facility] Last Admin: 04/10/18 11:07 Dose: 0.125 mg Docusate Sodium (Colace) 100 mg PO BID [facility] Last Admin: 04/10/18 11:06 Dose: 100 mg Famotidine (Pepcid) 40 mg PO HS [facility] Last Admin: 04/09/18 21:06 Dose: 40 mg Fluticasone Propionate (Flonase) 1 actuation NS DAILY [facility] Last Admin: 04/09/18 09:28 Dose: 1 spr Furosemide (Lasix) 40 mg PO DAILY [facility] Last Admin: 04/10/18 11:06 Dose: 40 mg Linezolid (Zyvox 600mg/300ml D5w) 600 mg in 300 mls @ 167 mls/hr IVPB Q12 [facility] Stop: 05/02/18 22:01 Last Admin: 04/10/18 10:57 Dose: 167 mls/hr Magnesium Oxide (Mag-Ox) 400 mg PO BID [facility] Last Admin: 04/10/18 11:07 Dose: 400 mg Miconazole Nitrate (Monistat 7 Vaginal Cream) 1 ea VG HS [facility] Stop: 04/14/18 22:01 Last Admin: 04/09/18 00:39 Dose: Not Given Nystatin (Nystop Topical Powder) 0 gm TOP BID [facility] Last Admin: 04/09/18 20:46 Dose: Not Given Ondansetron HCl (Zofran Inj) 4 mg IVP Q6H PRN PRN Reason: Nausea/Vomiting Last Admin: 04/10/18 11:37 Dose: 4 mg Oxycodone HCl (Oxycodone Immediate Release Tab) 5 mg PO Q4H PRN PRN Reason: Pain, Mild (1-3) Last Admin: 04/10/18 07:17 Dose: 5 mg Oxycodone HCl (Oxycodone Immediate Release Tab) 10 mg PO Q4H PRN PRN Reason: Pain, moderate (4-7) Last Admin: 04/09/18 10:57 Dose: 10 mg Polyethylene Glycol (Miralax) 17 gm PO DAILY [facility] Last Admin: 04/10/18 10:58 Dose: 17 gm Potassium Chloride (K-Dur 20 Meq Er Tab) 20 meq PO DAILY [facility] Last Admin: 04/09/18 09:28 Dose: 20 meq Sennosides (Senokot Tab) 17.2 mg PO HS [facility] Last Admin: 04/09/18 21:06 Dose: 17.2 mg - Labs Labs: 04/10/18 08:40 04/10/18 06:15 PT 14.5 SECONDS (9.4-12.5) H 04/09/18 10:00 INR 1.26 04/09/18 10:00 APTT 29.7 Seconds (25.1-36.5) 04/09/18 10:00 Assessment and Plan (1) Infection of right knee Status: Acute
[2018-04-10] MEDS ORDERED: Pantoprazole 40 mg EC Tab PO STA (18:11)
[2018-04-10] MEDS: Miconazole 2% Vaginal Cream(45 gm) VG SCH (22:19)
--- NOTE | 2018-04-11 00:04 | PN ---
DATE: 04/10/2018 REASON FOR CONSULTATION AND FOLLOWUP: Status post knee surgery, status post explantation of the hip, atrial fibrillation. SUBJECTIVE: The patient is much awake and alert. Denies any chest pain, shortness of breath, or any palpitation. Echo yesterday revealed ejection fraction 65%, left atrium moderately dilated, right atrium moderately dilated, calcific aortic valve valve, mild mitral regurgitation, [id number] tricuspid regurgitation, RV systolic pressure 65. RECOMMENDATIONS: Continue to hold Coumadin and aspirin, status post knee surgery. Continue gentle diuretics. Continue antibiotic. Discussed with PA, we will start low-dose of Coumadin. The patient is anemic, postop hemoglobin 6.9, getting a unit of blood. Further recommendations depending on hospital course. We will follow with you. We will start low-dose of Coumadin from tomorrow. Gabbi Medrano MD
--- NOTE | 2018-04-11 03:43 | PN ---
DATE: 04/10/2018 SUBJECTIVE: The patient is in bed, was seen earlier this morning in room 572, bed 1. PHYSICAL EXAMINATION: VITAL SIGNS: Temperature is 97, blood pressure . HEENT: Unremarkable. NECK: Supple. LUNGS: Have decreased breath sounds. HEART: Normal S1, S2. ABDOMEN: Soft, nontender. LABORATORY EXAMINATION: , hemoglobin of 6, BUN of 15, creatinine of 0.8. Urinalysis is noted. Microbiology reveals the cultures are negative. The repeat cultures and the OR cultures are pending. Initial cultures, multiple cultures with VRE. 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 The patient had explantation of the right knee prosthesis, insertion of antibiotic spacer, status post incision and drainage of the right knee. Awaiting for the repeat kamara culture results. Case discussed with Dr. Watson regarding duration of antibiotics, pending repeat cultures. Currently on Zyvox. Dominick Simeon MD
[2018-04-11] MEDS ORDERED: Pantoprazole 40 mg EC Tab PO SCH (06:00)
--- NOTE | 2018-04-11 06:52 | CP.PCM.PN ---
<Maru Boothe - Last Filed: 04/11/18 11:06> Subjective - Date & Time of Evaluation Date of Evaluation: 04/11/18 Time of Evaluation: 07:00 - Subjective Subjective: Medicine Progress Note for Jose Manuel London PGY3 Patient seen and examined at bedside. There were no acute overnight events as per nursing staff. She states she has some reflux this AM. She denies chest pain, shortness of breath, numbness/tingling, fever/chills, nausea/vomiting/diarrhea, dysuria/hematuria. Objective - Vital Signs/Intake and Output Vital Signs (last 24 hours): Temp Pulse Resp BP Pulse Ox 98.2 F 73 20 178/63 H 99 04/10/18 23:02 04/10/18 23:02 04/10/18 23:02 04/10/18 23:02 04/10/18 22:58 Intake and Output: 04/10/18 04/11/18 18:59 06:59 Intake Total 420 375 Balance 420 375 - Medications Medications: Current Medications Acetaminophen (Tylenol 325mg Tab) 650 mg PO Q6 [facility] Last Admin: 04/11/18 00:05 Dose: Not Given Aspirin (Ecotrin) 81 mg PO DAILY [facility] Last Admin: 04/07/18 10:40 Dose: 81 mg Atenolol (Tenormin) 25 mg PO BID [facility] Last Admin: 04/10/18 18:22 Dose: 25 mg Atorvastatin Calcium (Lipitor) 20 mg PO HS [facility] Last Admin: 04/10/18 22:16 Dose: 20 mg Digoxin (Digoxin) 0.125 mg PO DAILY [facility] Last Admin: 04/10/18 11:07 Dose: 0.125 mg Docusate Sodium (Colace) 100 mg PO BID [facility] Last Admin: 04/10/18 18:25 Dose: 100 mg Famotidine (Pepcid) 40 mg PO HS [facility] Last Admin: 04/10/18 22:16 Dose: 40 mg Fluticasone Propionate (Flonase) 1 actuation NS DAILY [facility] Last Admin: 04/10/18 10:19 Dose: 1 spr Furosemide (Lasix) 40 mg PO DAILY [facility] Last Admin: 04/10/18 11:06 Dose: 40 mg Linezolid (Zyvox 600mg/300ml D5w) 600 mg in 300 mls @ 167 mls/hr IVPB Q12 [facility] Stop: 05/02/18 22:01 Last Admin: 04/10/18 22:18 Dose: 167 mls/hr Magnesium Oxide (Mag-Ox) 400 mg PO BID [facility] Last Admin: 04/10/18 18:25 Dose: 400 mg Miconazole Nitrate (Monistat 7 Vaginal Cream) 1 ea VG HS [facility] Stop: 04/14/18 22:01 Last Admin: 04/10/18 22:19 Dose: 1 applic Nystatin (Nystop Topical Powder) 0 gm TOP BID [facility] Last Admin: 04/10/18 18:24 Dose: 1 applic Ondansetron HCl (Zofran Inj) 4 mg IVP Q6H PRN PRN Reason: Nausea/Vomiting Last Admin: 04/10/18 18:19 Dose: 4 mg Oxycodone HCl (Oxycodone Immediate Release Tab) 5 mg PO Q4H PRN PRN Reason: Pain, Mild (1-3) Last Admin: 04/10/18 07:17 Dose: 5 mg Oxycodone HCl (Oxycodone Immediate Release Tab) 10 mg PO Q4H PRN PRN Reason: Pain, moderate (4-7) Last Admin: 04/09/18 10:57 Dose: 10 mg Pantoprazole Sodium (Protonix Ec Tab) 40 mg PO 0600 [facility] Last Admin: 04/11/18 05:33 Dose: 40 mg Polyethylene Glycol (Miralax) 17 gm PO DAILY [facility] Last Admin: 04/10/18 10:58 Dose: 17 gm Potassium Chloride (K-Dur 20 Meq Er Tab) 20 meq PO DAILY [facility] Last Admin: 04/10/18 10:55 Dose: 20 meq Sennosides (Senokot Tab) 17.2 mg PO HS [facility] Last Admin: 04/10/18 22:39 Dose: Not Given Warfarin Sodium (Coumadin) 2 mg PO 1800 [facility]; Protocol - Labs Labs: 04/10/18 08:40 04/10/18 06:15 PT 14.5 SECONDS (9.4-12.5) H 04/09/18 10:00 INR 1.26 04/09/18 10:00 APTT 29.7 Seconds (25.1-36.5) 04/09/18 10:00 - Constitutional Appears: No Acute Distress - Head Exam Head Exam: ATRAUMATIC, NORMAL INSPECTION, NORMOCEPHALIC - Eye Exam Eye Exam: Normal appearance, PERRL Pupil Exam: NORMAL ACCOMODATION, PERRL - ENT Exam ENT Exam: Mucous Membranes Moist - Respiratory Exam Respiratory Exam: Clear to Ausculation Bilateral, NORMAL BREATHING PATTERN. absent: Rales, Rhonchi, Wheezes - Cardiovascular Exam Cardiovascular Exam: REGULAR RHYTHM, +S1, +S2. absent: Gallop, Rubs, Murmur - GI/Abdominal Exam GI & Abdominal Exam: Soft, Normal Bowel Sounds. absent: Rigid, Tenderness, Mass, Rebound - Extremities Exam Extremities Exam: Normal Capillary Refill. 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 Anemia - secondary to blood loss from surgery - s/p 4U PRBC total 3. A.fib - Coumadin on hold - Rate controlled 4. Cutaneous candidiasis 5. Vaginal candiasis - secondary to antibiotics 6. Essential HTN 7. CAD s/p PCI Plan: Labs and imaging reviewed. Hgb stable. Digoxin level normal. Continue Digoxin and Atenolol for a.fib. Will restart Coumadin and ASA today. Pain is controlled. Continue stool softeners and is tolerating diet. Continue Zyvox. ID and Cardiology are following. Monistat and Nystatin for fungal infection. Case seen, discussed and reviewed with Dr. Christin Boothe PGY3 <Ajay Waller S - Last Filed: 04/13/18 14:42> Objective - Vital Signs/Intake and Output Vital Signs (last 24 hours): Temp Pulse Resp BP Pulse Ox 98.0 F 59 L 19 136/64 99 04/11/18 14:00 04/11/18 14:00 04/11/18 14:00 04/11/18 17:45 04/11/18 14:00 - Labs Labs: 04/11/18 06:15 04/11/18 06:15 PT 14.5 SECONDS (9.4-12.5) H 04/09/18 10:00 INR 1.26 04/09/18 10:00 APTT 29.7 Seconds (25.1-36.5) 04/09/18 10:00 Assessment and Plan - Assessment and Plan (Free Text) Plan: Pt seen and examined by me. I have reviewed the note by the medical technicians. The case was discussed and reviewed with the resident. I reviewed the medications and labs. The pt has a right knee infection. She is also complaining of nausea. She is on Dig and Atenolol for her A fib. She will be started on her Coumadin for her Afib. ID is following and she will be on Zyvox for her infection. She will need PT and is waiting to go to either acute rehab or TCU.
[2018-04-11 06:53] LABS: BASO # 0.01 K/mm3 (0.0-2.0); BASO % 0.1 % (0.0-3.0); EOS # 0.2 (0.0-0.7); EOS % 1.6 % (1.5-5.0); GRAN # 7.34 (1.4-6.5); GRAN % 79.8 % (50.0-68.0); LYMPH # 1.3 (1.2-3.4); LYMPH % 14.3 % (22.0-35.0); MEAN CELL VOLUME 83.8 fl (80.0-105.0); MEAN CORPUSCULAR HGB CONC 33.5 g/dl (31.0-37.0); MEAN PLATELET VOLUME 9.3 fl (7.0-11.0); MONO # 0.4 (0.1-0.6); MONO % 4.2 % (1.0-6.0); RBC 3.21 10^6/uL (3.5-6.1); RED CELL DISTRIBUTION WIDTH 15.5 % (11.5-14.5); WHITE BLOOD COUNT 9.2 10^3/ul (4.5-11.0)
--- NOTE | 2018-04-11 07:17 | CP.PCM.PN ---
Subjective - Date & Time of Evaluation Date of Evaluation: 04/11/18 Time of Evaluation: 06:25 - Subjective Subjective: Awake, no distress, denies shortness of breath Reason for consultation and follow up: Cardiac evaluation of atrial fibrillation, status post right knee surgery Seen and examined by me and Dr. Medrano Objective - Vital Signs/Intake and Output Vital Signs (last 24 hours): Temp Pulse Resp BP Pulse Ox 98.2 F 73 20 178/63 H 99 04/10/18 23:02 04/10/18 23:02 04/10/18 23:02 04/10/18 23:02 04/10/18 22:58 Intake and Output: 04/11/18 04/11/18 06:59 18:59 Intake Total 375 Balance 375 - Medications Medications: Current Medications Acetaminophen (Tylenol 325mg Tab) 650 mg PO Q6 [facility] Last Admin: 04/11/18 00:05 Dose: Not Given Aspirin (Ecotrin) 81 mg PO DAILY [facility] Last Admin: 04/07/18 10:40 Dose: 81 mg Atenolol (Tenormin) 25 mg PO BID [facility] Last Admin: 04/10/18 18:22 Dose: 25 mg Atorvastatin Calcium (Lipitor) 20 mg PO HS [facility] Last Admin: 04/10/18 22:16 Dose: 20 mg Digoxin (Digoxin) 0.125 mg PO DAILY [facility] Last Admin: 04/10/18 11:07 Dose: 0.125 mg Docusate Sodium (Colace) 100 mg PO BID [facility] Last Admin: 04/10/18 18:25 Dose: 100 mg Famotidine (Pepcid) 40 mg PO HS [facility] Last Admin: 04/10/18 22:16 Dose: 40 mg Fluticasone Propionate (Flonase) 1 actuation NS DAILY [facility] Last Admin: 04/10/18 10:19 Dose: 1 spr Furosemide (Lasix) 40 mg PO DAILY [facility] Last Admin: 04/10/18 11:06 Dose: 40 mg Linezolid (Zyvox 600mg/300ml D5w) 600 mg in 300 mls @ 167 mls/hr IVPB Q12 [facility] Stop: 05/02/18 22:01 Last Admin: 04/10/18 22:18 Dose: 167 mls/hr Magnesium Oxide (Mag-Ox) 400 mg PO BID [facility] Last Admin: 10/04/18 18:25 Dose: 400 mg Miconazole Nitrate (Monistat 7 Vaginal Cream) 1 ea VG HS [facility] Stop: 04/14/18 22:01 Last Admin: 04/10/18 22:19 Dose: 1 applic Nystatin (Nystop Topical Powder) 0 gm TOP BID [facility] Last Admin: 04/10/18 18:24 Dose: 1 applic Ondansetron HCl (Zofran Inj) 4 mg IVP Q6H PRN PRN Reason: Nausea/Vomiting Last Admin: 04/10/18 18:19 Dose: 4 mg Oxycodone HCl (Oxycodone Immediate Release Tab) 5 mg PO Q4H PRN PRN Reason: Pain, Mild (1-3) Last Admin: 04/10/18 07:17 Dose: 5 mg Oxycodone HCl (Oxycodone Immediate Release Tab) 10 mg PO Q4H PRN PRN Reason: Pain, moderate (4-7) Last Admin: 04/09/18 10:57 Dose: 10 mg Pantoprazole Sodium (Protonix Ec Tab) 40 mg PO 0600 [facility] Last Admin: 04/11/18 05:33 Dose: 40 mg Polyethylene Glycol (Miralax) 17 gm PO DAILY [facility] Last Admin: 04/10/18 10:58 Dose: 17 gm Potassium Chloride (K-Dur 20 Meq Er Tab) 20 meq PO DAILY [facility] Last Admin: 04/10/18 10:55 Dose: 20 meq Sennosides (Senokot Tab) 17.2 mg PO [facility] Last Admin: 04/10/18 22:39 Dose: Not Given Warfarin Sodium (Coumadin) 2 mg PO 1800 [facility]; Protocol - Labs Labs: 04/11/18 06:15 04/10/18 06:15 PT 14.5 SECONDS (9.4-12.5) H 04/09/18 10:00 INR 1.26 04/09/18 10:00 APTT 29.7 Seconds (25.1-36.5) 04/09/18 10:00 - Constitutional Appears: Non-toxic, No Acute Distress - Head Exam Head Exam: NORMAL INSPECTION, NORMOCEPHALIC - Eye Exam Eye Exam: Normal appearance - ENT Exam ENT Exam: Mucous Membranes Dry - Respiratory Exam Respiratory Exam: Decreased Breath Sounds, Clear to Ausculation Bilateral, NORMAL BREATHING PATTERN - Cardiovascular Exam Cardiovascular Exam: +S1, +S2 - GI/Abdominal Exam GI & Abdominal Exam: Soft, Normal Bowel Sounds - Exam Additional comments: luna catheter, denies pain - Extremities Exam Additional comments: right knee immobilizer - Neurological Exam Neurological Exam: Alert, Awake, Oriented x3 - Psychiatric Exam Psychiatric exam: Normal Affect, Normal Mood - Skin Skin Exam: Dry, Normal Color, Warm Assessment and Plan - Assessment and Plan (Free Text) Assessment: An 82 year old female status post explantation of knee joint prosthesis, Postoperatively, patient had atrial fibrillation thus cardiac consult was called. Patient has history of chronic atrial fibrillation, hypertension, coronary artery disease with PTCA (1999),last cardiac cath 10/09/2012- showed patent stents, osteoarthritis, fractured tibia in 1989, total right knee replacement 02/18/18, explanted right knee replacement 03/31/18, Echo done-LVEF 60-65%, right and left atrium moderately dilated, calcified aortic valve but normal aortic valve opening, Mild MR. Moderate to severe TR RVSP 65mmHg, Severe pulmonary hypertension, Low hemoglobin yesterday 6.4, transfused PRBC. Plan: Denies shortness of breath, denies chest pain Controlled heart rate and blood pressure Cardiac status stable Repeat hemoglobin and hematocrit post transfusion 9.0/26.9 Held Coumadin and Aspirin On Tenormin 25 mg BID,Lipitor 20 mg daily,Digoxin 0.125mg daily, Lasix 40 mg daily,Kdur 20 meq daily, ASA 81 mg daily, Coumadin 4 mg daily Continue IV antibiotics per ID On contact isolation for positive wound culture (E. Faecalis) Continue current treatment Continue current medications Chart reviewed Will follow up Plan and treatment discussed with Dr. Medrano
[2018-04-11 08:11] LABS: BLOOD UREA NITROGEN 15 mg/dL (7-21); GFR NON-AFRICAN AMERICAN > 60
[2018-04-11] MEDS: Magnesium Oxide 400 mg Tab UD PO SCH ×2 (09:46→17:46)
[2018-04-11] MEDS: POLYETHYLENE GLYCOL 3350 17 GM/Dose PACKET PO SCH (09:48)
[2018-04-11] MEDS: Linezolid 600 mg in D5W 300 ml 600 MG/300 ML BAG IVPB SCH (09:48)
[2018-04-11] MEDS: Nystatin 100,000 Units/gm Topical Pow(15 gm) TOP SCH ×2 (09:52→19:00)
[2018-04-11] MEDS: Fluticasone Nasal 50 mcg/Spray NS SCH (09:53)
--- NOTE | 2018-04-11 10:58 | CP.PCM.PN ---
Subjective - Date & Time of Evaluation Date of Evaluation: 04/11/18 Time of Evaluation: 10:55 - Subjective Subjective: Pt awake, alert. Pt complaining of nausea. Daughter states that she has had poor PO intake for 4 days. Afebrile,VSS R knee: DUDLEY dressing with good seal thigh and calf soft, NT Harris dressing applied WBC 9.2 Hg 9.0 cultures from 04/08 NGTD continue antibiotics Knee immobilizer Pt seen by GI service, abdominal xray ordered plan for dressing change Saturday Objective - Vital Signs/Intake and Output Vital Signs (last 24 hours): Temp Pulse Resp BP Pulse Ox 98 F 69 20 149/65 97 04/11/18 08:27 04/11/18 08:27 04/11/18 08:27 04/11/18 09:47 04/11/18 08:27 Intake and Output: 04/11/18 04/11/18 06:59 18:59 Intake Total 375 Balance 375 - Medications Medications: Current Medications Acetaminophen (Tylenol 325mg Tab) 650 mg PO Q6 [facility] Last Admin: 04/11/18 00:05 Dose: Not Given Aspirin (Ecotrin) 81 mg PO DAILY [facility] Last Admin: 04/07/18 10:40 Dose: 81 mg Atenolol (Tenormin) 25 mg PO BID [facility] Last Admin: 04/11/18 09:47 Dose: 25 mg Atorvastatin Calcium (Lipitor) 20 mg PO [facility] Last Admin: 04/10/18 22:16 Dose: 20 mg Digoxin (Digoxin) 0.125 mg PO DAILY [facility] Last Admin: 04/10/18 11:07 Dose: 0.125 mg Docusate Sodium (Colace) 100 mg PO BID [facility] Last Admin: 04/11/18 09:47 Dose: Not Given Famotidine (Pepcid) 40 mg PO HS [facility] Last Admin: 04/10/18 22:16 Dose: 40 mg Fluticasone Propionate (Flonase) 1 actuation NS DAILY [facility] Last Admin: 04/11/18 09:53 Dose: 1 spr Furosemide (Lasix) 40 mg PO DAILY [facility] Last Admin: 04/11/18 09:46 Dose: 40 mg Linezolid (Zyvox 600mg/300ml D5w) 600 mg in 300 mls @ 167 mls/hr IVPB Q12 [facility] Stop: 05/02/18 22:01 Last Admin: 04/11/18 09:48 Dose: 167 mls/hr Magnesium Oxide (Mag-Ox) 400 mg PO BID [facility] Last Admin: 04/11/18 09:46 Dose: 400 mg Miconazole Nitrate (Monistat 7 Vaginal Cream) 1 ea VG [facility] Stop: 04/14/18 22:01 Last Admin: 04/10/18 22:19 Dose: 1 applic Nystatin (Nystop Topical Powder) 0 gm TOP BID [facility] Last Admin: 04/11/18 09:52 Dose: 1 applic Ondansetron HCl (Zofran Inj) 4 mg IVP Q6H PRN PRN Reason: Nausea/Vomiting Last Admin: 04/10/18 18:19 Dose: 4 mg Oxycodone HCl (Oxycodone Immediate Release Tab) 5 mg PO Q4H PRN PRN Reason: Pain, Mild (1-3) Last Admin: 04/10/18 07:17 Dose: 5 mg Oxycodone HCl (Oxycodone Immediate Release Tab) 10 mg PO Q4H PRN PRN Reason: Pain, moderate (4-7) Last Admin: 04/09/18 10:57 Dose: 10 mg Pantoprazole Sodium (Protonix Ec Tab) 40 mg PO 0600 [facility] Last Admin: 04/11/18 05:33 Dose: 40 mg Polyethylene Glycol (Miralax) 17 gm PO DAILY [facility] Last Admin: 04/11/18 09:48 Dose: 17 gm Sennosides (Senokot Tab) 17.2 mg PO [facility] Last Admin: 04/10/18 22:39 Dose: Not Given Warfarin Sodium (Coumadin) 2 mg PO 1800 [facility]; Protocol - Labs Labs: 04/11/18 06:15 04/11/18 06:15 PT 14.5 SECONDS (9.4-12.5) H 04/09/18 10:00 INR 1.26 04/09/18 10:00 APTT 29.7 Seconds (25.1-36.5) 04/09/18 10:00
--- NOTE | 2018-04-11 12:13 | RAD ---
Date of service: 04/11/2018 HISTORY: r/o bowel obstruction COMPARISON: No prior. FINDINGS: BOWEL: Normal. No obstruction. No free air. BONES: Normal. OTHER FINDINGS: None. IMPRESSION: No active disease.
--- NOTE | 2018-04-11 12:35 | CON ---
DATE: 04/11/2018 REQUESTING PHYSICIAN: Ajay Waller MD REASON FOR CONSULT: I have been asked to see this 82-year-old female who was hospitalized with an infected right knee prosthesis, whom I have been asked to see for intermittent dry heaves, acid reflux, occasional nausea and poor appetite. The patient underwent right total knee replacement approximately 7 weeks ago and subsequently developed a hematoma. The patient had drainage of the hematoma and was subsequently found to have a VRE infection. She then underwent explantation of the right knee several days ago. The patient had been on warfarin for chronic atrial fibrillation. She currently denies any hematemesis, melena, abdominal pain or rectal bleeding. Her dry heaves apparently has been a chronic problem. She states that at home, she had dry heaves after eating ice cream. Her dry heaves have become increasingly frequent over the last several days with her last episode last night. PAST MEDICAL HISTORY: Notable for atrial fibrillation, coronary artery disease, status post coronary artery stent placement, hypertension, degenerative joint disease, hyperlipidemia. PAST SURGICAL HISTORY: Notable for right total knee replacement in February 2018 and drainage of a hematoma of the right knee with subsequent explantation of the right total knee replacement. SOCIAL HISTORY: The patient denies cigarette smoking or alcohol use. FAMILY HISTORY: Noncontributory. REVIEW OF SYSTEMS: A 14-point review of systems is notable for dry heaves, nausea, poor appetite and acid reflux. PHYSICAL EXAMINATION: GENERAL: An elderly female lying in bed, in no acute distress. VITAL SIGNS: Reveal temperature of 98, blood pressure 144/71, heart rate of 69. HEENT: Reveal sclerae to be white. Conjunctivae pink. NECK: Supple. CHEST: Reveal lungs to be clear. HEART: Exam reveals an irregular rate. ABDOMEN: Soft, nontender. EXTREMITIES: Show no edema. Her right leg is in a dressing. LABORATORY DATA: Reveal sodium 130, potassium 3.7, BUN 15, creatinine 0.6. Her serum albumin on 04/08/2018 was 2.8. CBC reveals hemoglobin of 9, yesterday was down to 6.4, white blood cell count 9.2, platelet count of 146,000. Of note, the patient received 5 units of packed red blood cells over the last several days. Her INR on 04/09/2018 was 1.26. IMPRESSION: An 82-year-old female, status post right total knee explantation with vancomycin-resistant enterococcus infection with nausea, poor appetite, dry heaves, heartburn. Her symptoms are multifactorial in etiology including being bedridden for several weeks, her dislike of hospital food as well as use of pain medications. Her serum albumin is down to 2.8. RECOMMENDATIONS: Continue supportive care. Continue Zofran and Protonix for symptoms of dry heaves and acid reflux. We will start the patient on Ensure pudding as nutritional supplement and I request an obstructive series of the abdomen to rule out bowel obstruction and note that there is no clinical evidence of active GI bleeding. Emile Power MD MTDD
[2018-04-11 13:59] VITALS: O2SAT 99
--- NOTE | 2018-04-11 16:07 | PN ---
DATE: 04/11/2018 REASON FOR CONSULTATION: History of chronic atrial fibrillation, status post right knee surgery, status post hematoma, status post explanted. Hemoglobin 9, status post packed RBC transfusion. I discussed with PA of Dr. Watson who will start low dose of Coumadin 2 mg daily, monitor daily PT/INR. Continue to supplement potassium as needed. Continue gentle diuretics. Continue atenolol. We will follow with you. Thank you, Dr. Waller, for providing us the opportunity in taking care of the patient, Norma Segura. This note is in addition to the dictated by nurse practitioner. Gabbi Medrano MD
[2018-04-11 16:24] VITALS: PULSE 59; RESP 19; TEMP 98
--- NOTE | 2018-04-11 16:37 | CP.PCM.PN ---
Subjective - Date & Time of Evaluation Date of Evaluation: 04/11/18 Time of Evaluation: 09:40 - Subjective Subjective: No fevers, not in distress, afebrile, no increased pain in the right knee. No nausea or diarrhea. Objective - Vital Signs/Intake and Output Vital Signs (last 24 hours): Temp Pulse Resp BP Pulse Ox 98.0 F 59 L 19 133/66 99 04/11/18 14:00 04/11/18 14:00 04/11/18 14:00 04/11/18 14:00 04/11/18 14:00 Intake and Output: 04/11/18 04/11/18 06:59 18:59 Intake Total 375 Balance 375 - Medications Medications: Current Medications Acetaminophen (Tylenol 325mg Tab) 650 mg PO Q6 [facility] Last Admin: 04/11/18 00:05 Dose: Not Given Aspirin (Ecotrin) 81 mg PO DAILY [facility] Last Admin: 04/07/18 10:40 Dose: 81 mg Atenolol (Tenormin) 25 mg PO BID [facility] Last Admin: 04/11/18 09:47 Dose: 25 mg Atorvastatin Calcium (Lipitor) 20 mg PO [facility] Last Admin: 04/10/18 22:16 Dose: 20 mg Digoxin (Digoxin) 0.125 mg PO DAILY [facility] Last Admin: 04/10/18 11:07 Dose: 0.125 mg Docusate Sodium (Colace) 100 mg PO BID [facility] Last Admin: 04/11/18 09:47 Dose: Not Given Famotidine (Pepcid) 40 mg PO HS [facility] Last Admin: 04/10/18 22:16 Dose: 40 mg Fluticasone Propionate (Flonase) 1 actuation NS DAILY [facility] Last Admin: 04/11/18 09:53 Dose: 1 spr Furosemide (Lasix) 40 mg PO DAILY [facility] Last Admin: 04/11/18 09:46 Dose: 40 mg Linezolid (Zyvox 600mg/300ml D5w) 600 mg in 300 mls @ 167 mls/hr IVPB Q12 [facility] Stop: 05/02/18 22:01 Last Admin: 04/11/18 09:48 Dose: 167 mls/hr Magnesium Oxide (Mag-Ox) 400 mg PO BID [facility] Last Admin: 04/11/18 09:46 Dose: 400 mg Miconazole Nitrate (Monistat 7 Vaginal Cream) 1 ea VG HS [facility] Stop: 04/14/18 22:01 Last Admin: 04/10/18 22:19 Dose: 1 applic Nystatin (Nystop Topical Powder) 0 gm TOP BID [facility] Last Admin: 04/11/18 09:52 Dose: 1 applic Ondansetron HCl (Zofran Inj) 4 mg IVP Q6H PRN PRN Reason: Nausea/Vomiting Last Admin: 04/10/18 18:19 Dose: 4 mg Oxycodone HCl (Oxycodone Immediate Release Tab) 5 mg PO Q4H PRN PRN Reason: Pain, Mild (1-3) Last Admin: 04/10/18 07:17 Dose: 5 mg Oxycodone HCl (Oxycodone Immediate Release Tab) 10 mg PO Q4H PRN PRN Reason: Pain, moderate (4-7) Last Admin: 04/09/18 10:57 Dose: 10 mg Pantoprazole Sodium (Protonix Ec Tab) 40 mg PO 0600 [facility] Last Admin: 04/11/18 05:33 Dose: 40 mg Polyethylene Glycol (Miralax) 17 gm PO DAILY [facility] Last Admin: 04/11/18 09:48 Dose: 17 gm Sennosides (Senokot Tab) 17.2 mg PO [facility] Last Admin: 04/10/18 22:39 Dose: Not Given Warfarin Sodium (Coumadin) 2 mg PO 1800 [facility]; Protocol - Labs Labs: 04/11/18 06:15 04/11/18 06:15 PT 14.5 SECONDS (9.4-12.5) H 04/09/18 10:00 INR 1.26 04/09/18 10:00 APTT 29.7 Seconds (25.1-36.5) 04/09/18 10:00 - Constitutional Appears: Chronically Ill - Head Exam Head Exam: NORMAL INSPECTION - Respiratory Exam Respiratory Exam: Decreased Breath Sounds - Cardiovascular Exam Cardiovascular Exam: +S1, +S2 - GI/Abdominal Exam GI & Abdominal Exam: Soft. absent: Tenderness - Extremities Exam Additional comments: right knee with dressings and immobilizer in place Assessment and Plan - Assessment and Plan (Free Text) Plan: Assessment 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, S/P debridement, S/P removal, placement of antibiotic spacer CAD S/P PCI HTN atrial fibrillation osteoarthritis S/P right knee replacement Plan continue Zyvox - repeat cultures from 04/08/2018 OR are negative so far - will need 6 weeks of antibiotics from the time the antibiotic spacer was placed with weekly ESR, CRP, CBC, CMP while on antibiotics will continue to monitor clinically
[2018-04-11] MEDS: Digoxin 125 mcg (0.125 mg) Tab PO SCH (17:46)
[2018-04-11 17:48] VITALS: BP 136/64; PULSE 68
--- NOTE | 2018-04-22 07:40 | PQF ---
PROVIDER RESPONSE TEXT: An excisional debridement was performed. REVIEWER QUERY TEXT: Debridement Type Debridement is documented in the Medical Record. Please specify the type and extent of debridement to include the method and instruments used. Depth of tissue removed: Such as: -- Skin -- Subcutaneous tissue -- Fascia -- Muscle -- Bone -- Other, please specify The patient's Clinical Indicators include: Per operative report dated 04/02 your indication of " the wound was inspected for any nonviable loose tissue and all tissue was sharply debrided." Please specify whether if this is an EXCISIONAL or NON-E XCISIONAL debridement. Query created by: Garima Real on 04/14/2018 9:20 AM Electronically signed by: Hernan Watson MD 04/22/2018 7:38 AM
== END 2018-04-11 20:42 | DRG 464 ==
LOC: ED 10:15 → ERH 12:20 → 5RSO 14:01
PROVIDERS: ADMIT Orthopaedic Surgery; ATTEND Orthopaedic Surgery
PROC: 0SCC0ZZ Extirpation of Matter from Right Knee Joint, Open Approach (ICD-10-PCS; 2018-04-02)
PROC: 0JBN0ZZ Excision of Right Lower Leg Subcutaneous Tissue and Fascia, Open Approach (ICD-10-PCS; 2018-04-02)
PROC: 0SPC0JZ Removal of Synthetic Substitute from Right Knee Joint, Open Approach (ICD-10-PCS; principal; 2018-04-02 08:15)
PROC: 02HV33Z Insertion of Infusion Device into Superior Vena Cava, Percutaneous Approach (ICD-10-PCS; 2018-04-05)
PROC: B54NZZA Ultrasonography of Left Upper Extremity Veins, Guidance (ICD-10-PCS; 2018-04-05)
PROC: 30233N1 Transfusion of Nonautologous Red Blood Cells into Peripheral Vein, Percutaneous Approach (ICD-10-PCS; 2018-04-06)
PROC: 0SCC0ZZ Extirpation of Matter from Right Knee Joint, Open Approach (ICD-10-PCS; 2018-04-08)
PROC: 0SHC08Z Insertion of Spacer into Right Knee Joint, Open Approach (ICD-10-PCS; 2018-04-08)
PROC: 0JDN0ZZ Extraction of Right Lower Leg Subcutaneous Tissue and Fascia, Open Approach (ICD-10-PCS; 2018-04-08)
PROC: 30233K1 Transfusion of Nonautologous Frozen Plasma into Peripheral Vein, Percutaneous Approach (ICD-10-PCS; 2018-04-08)
PROC: 02HV33Z Insertion of Infusion Device into Superior Vena Cava, Percutaneous Approach (ICD-10-PCS; 2018-04-09)
PROC: B548ZZA Ultrasonography of Superior Vena Cava, Guidance (ICD-10-PCS; 2018-04-09)
PROC: 3E04329 Introduction of Other Anti-infective into Central Vein, Percutaneous Approach (ICD-10-PCS; 2018-04-09)
DX: T84.53XA Infection and inflammatory reaction due to internal right knee prosthesis, initial encounter (principal); M96.840 Postprocedural hematoma of a musculoskeletal structure following a musculoskeletal system procedure; M00.9 Pyogenic arthritis, unspecified; R35.0 Frequency of micturition; R30.0 Dysuria; Z96.651 Presence of right artificial knee joint; M17.11 Unilateral primary osteoarthritis, right knee; I48.91 Unspecified atrial fibrillation; I25.10 Atherosclerotic heart disease of native coronary artery without angina pectoris; I10 Essential (primary) hypertension; Z16.21 Resistance to vancomycin; B95.2 Enterococcus as the cause of diseases classified elsewhere; D50.0 Iron deficiency anemia secondary to blood loss (chronic); I48.2 Chronic atrial fibrillation; I08.1 Rheumatic disorders of both mitral and tricuspid valves; B37.3 Candidiasis of vulva and vagina; B37.2 Candidiasis of skin and nail; I27.20 Pulmonary hypertension, unspecified; K59.00 Constipation, unspecified; E78.5 Hyperlipidemia, unspecified; Y83.1 Surgical operation with implant of artificial internal device as the cause of abnormal reaction of the patient, or of later complication, without mention of misadventure at the time of the procedure; Z79.82 Long term (current) use of aspirin; Z79.01 Long term (current) use of anticoagulants; Z95.5 Presence of coronary angioplasty implant and graft

== ENCOUNTER 2018-04-11 20:42 | Inpatient (IN) | payer OTHER, BC ==
[2018-04-12] MEDS: Pantoprazole 40 mg EC Tab PO SCH (05:13)
[2018-04-12 06:29] LABS: HEMOGLOBIN 8.2 g/dL (12.0-16.0); MEAN CELL VOLUME 84.3 fl (80.0-105.0); MEAN CORPUSCULAR HEMOGLOBIN 28.6 pg (25.0-35.0); MEAN CORPUSCULAR HGB CONC 33.9 g/dl (31.0-37.0); RBC 2.87 10^6/uL (3.5-6.1); RED CELL DISTRIBUTION WIDTH 15.4 % (11.5-14.5); WHITE BLOOD COUNT 6.8 10^3/ul (4.5-11.0)
[2018-04-12] MEDS: Fluticasone Nasal 50 mcg/Spray NS SCH (10:07)
[2018-04-12] MEDS: POLYETHYLENE GLYCOL 3350 17 GM/Dose PACKET PO SCH (10:08)
[2018-04-12] MEDS: Magnesium Oxide 400 mg Tab UD PO SCH ×2 (10:08→18:04)
[2018-04-12] MEDS: oxyCODONE 5 mg Immediate Release Tab PO PRN (10:09)
[2018-04-12] MEDS: Nystatin 100,000 Units/gm Topical Pow(15 gm) TOP SCH ×2 (10:09→18:04)
[2018-04-12 12:59] LABS: ALB/GLOB RATIO 1.1 (1.1-1.8); ALBUMIN 2.9 g/dL (3.0-4.8); ALT/SGPT 31 U/L (7-56); AST/SGOT 37 U/L (14-36); BLOOD UREA NITROGEN 14 mg/dL (7-21); CALCIUM 8.1 mg/dL (8.4-10.5); GFR NON-AFRICAN AMERICAN > 60
[2018-04-12] MEDS: Digoxin 125 mcg (0.125 mg) Tab PO SCH (13:50)
[2018-04-12] MEDS ORDERED: Digoxin 125 mcg (0.125 mg) Tab PO SCH (14:00)
[2018-04-12] MEDS ORDERED: Potassium Chloride 20 mEq ER Tab PO STA (14:07)
--- NOTE | 2018-04-12 14:16 | CP.PCM.CON ---
<Maru Boothe - Last Filed: 04/12/18 14:07> History of Present Illness - History of Present Illness History of Present Illness: Medicine Consult Note for Jose Manuel London PGY3 This is an 82yo female with past medical history of HTN, CAD, a.fib, OA who was admitted for VRE infection of R TKA. Patient had prothesis removed and antibiotic spacer placed. Patient was transferred to TCU for further rehabilitation. Patient reports she feels well today. She does not want to take any stool softeners. She denies any pain in her knee. She denies chest pain, shortness of breath, nausea/vomiting/diarrhea, fever/chills, dysuria/hematuria, numbness or tingling. Past medical history: HTN, CAD s/p PCI, Afib (on Coumadin), OA Past surgical history: R TKA (02/2018) and prosthesis removal with antibiotic spacer placement, ORIF R tibia (), PCI Home meds: Reviewed as per MAR Allergies: Benadryl, Nitroglycerin (anaphylaxis), Penicillin (rash), chocolate (headache) Social history: Denies tobacco, EtOH or drug use. Lives alone. Walks with walker. Family history: heart disease Review of Systems - Review of Systems All systems: reviewed and no additional remarkable complaints except Review of Systems: 12 point ROS reviewed as per HPI and is otherwise negative. Past Patient History - Infectious Disease Hx of Infectious Diseases: None - Tetanus Immunizations Tetanus Immunization: Unknown - Past Medical History & Family History Past Medical History?: Yes - Past Social History Smoking Status: Never Smoked - CARDIAC Hx Cardiac Disorders: Yes Hx Congestive Heart Failure: Yes Hx Hypercholesterolemia: Yes Hx Hypertension: Yes - PULMONARY Hx Respiratory Disorders: Yes Hx Pneumonia: Yes - NEUROLOGICAL Hx Neurological Disorder: Yes Hx Dizziness: Yes - HEENT Hx HEENT Problems: Yes Hx Cataracts: Yes - RENAL Hx Chronic Kidney Disease: No - ENDOCRINE/METABOLIC Hx Endocrine Disorders: No - HEMATOLOGICAL/ONCOLOGICAL Hx Cancer: No - INTEGUMENTARY Hx Dermatological Problems: No - MUSCULOSKELETAL/RHEUMATOLOGICAL Hx Arthritis: Yes - GASTROINTESTINAL Hx Gastrointestinal Disorders: No - GENITOURINARY/GYNECOLOGICAL Hx Genitourinary Disorders: Yes (PMB) - PSYCHIATRIC Hx Psychophysiologic Disorder: No Hx Substance Use: No - SURGICAL HISTORY Hx Mastectomy: No - ANESTHESIA Hx Anesthesia Reactions: No Hx Malignant Hyperthermia: No Meds Allergies/Adverse Reactions: Allergies Allergy/AdvReac Type Severity Reaction Status Date / Time diphenhydramine Allergy Severe unknown Verified 02/07/18 10:08 [From Benadryl] nitroglycerin Allergy Severe ANAPHYLAXIS Verified 02/07/18 10:08 pcn Allergy Severe RASH Uncoded 02/07/18 10:08 silk tape Allergy blisters Uncoded 04/08/18 16:01 chocolate candy AdvReac Severe HEADACHE Uncoded 02/07/18 10:08 - Medications Medications: Current Medications Acetaminophen (Tylenol 325mg Tab) 650 mg PO Q6H [facility] Last Admin: 04/12/18 10:09 Dose: Not Given Aspirin (Ecotrin) 81 mg PO DAILY [facility] Last Admin: 04/12/18 10:07 Dose: 81 mg Atenolol (Tenormin) 25 mg PO BID [facility] Last Admin: 04/12/18 10:09 Dose: 25 mg Atorvastatin Calcium (Lipitor) 20 mg PO HS [facility] Digoxin (Digoxin) 0.125 mg PO 1400 [facility] Last Admin: 04/12/18 13:50 Dose: 0.125 mg Docusate Sodium (Colace) 100 mg PO BID [facility] Last Admin: 04/12/18 10:07 Dose: 100 mg Famotidine (Pepcid) 40 mg PO HS [facility] Fluticasone Propionate (Flonase) 1 actuation NS DAILY [facility] Last Admin: 04/12/18 10:07 Dose: 1 spray Furosemide (Lasix) 40 mg PO DAILY [facility] Last Admin: 04/12/18 10:08 Dose: 40 mg Linezolid (Zyvox) 600 mg PO BID [facility]; Protocol Last Admin: 04/12/18 10:10 Dose: 600 mg Magnesium Oxide (Mag-Ox) 400 mg PO BID [facility] Last Admin: 04/12/18 10:08 Dose: 400 mg Miconazole Nitrate (Monistat 7 Vaginal Cream) 1 ea VG HS [facility] Nystatin (Nystop Topical Powder) 0 gm TOP BID [facility] Last Admin: 04/12/18 10:09 Dose: 1 applic Ondansetron HCl (Zofran Inj) 4 mg IVP Q6H PRN PRN Reason: Nausea/Vomiting Last Admin: 04/12/18 11:45 Dose: 4 mg Oxycodone HCl (Oxycodone Immediate Release Tab) 5 mg PO Q4H PRN PRN Reason: Pain, Mild (1-3) Last Admin: 04/12/18 10:09 Dose: 5 mg Pantoprazole Sodium (Protonix Ec Tab) 40 mg PO 0600 [facility] Last Admin: 04/12/18 05:13 Dose: 40 mg Polyethylene Glycol (Miralax) 17 gm PO DAILY [facility] Last Admin: 04/12/18 10:08 Dose: Not Given Sennosides (Senokot Tab) 17.2 mg PO HS [facility] Warfarin Sodium (Coumadin) 2 mg PO 1800 [facility] Physical Exam - Constitutional Appears: No Acute Distress - Head Exam Head Exam: ATRAUMATIC, NORMAL INSPECTION, NORMOCEPHALIC - Eye Exam Eye Exam: Normal appearance, PERRL Pupil Exam: NORMAL ACCOMODATION, PERRL - ENT Exam ENT Exam: Mucous Membranes Moist - Respiratory Exam Respiratory Exam: Clear to Auscultation Bilateral, NORMAL BREATHING PATTERN. absent: Rales, Rhonchi, Wheezes - Cardiovascular Exam Cardiovascular Exam: REGULAR RHYTHM, +S1, +S2. absent: Gallop, Rubs, Systolic Murmur - GI/Abdominal Exam GI & Abdominal Exam: Normal Bowel Sounds, Soft. absent: Mass, Rebound, Rigid, Tenderness - Extremities Exam Extremities exam: Positive for: normal inspection. Negative for: calf tenderness, pedal edema Additional comments: R knee dressing in place- clean and dry - Neurological Exam Neurological exam: Alert, CN II-XII Intact, Oriented x3 - Psychiatric Exam Psychiatric exam: Normal Affect, Normal Mood - Skin Skin Exam: Dry, Intact, Warm Results - Vital Signs Recent Vital Signs: Last Vital Signs Temp 98 F 04/12/18 10:56 Pulse 63 04/12/18 10:56 Resp 14 04/12/18 10:56 BP 144/75 04/12/18 10:56 Pulse Ox 92 L 04/12/18 10:56 - Labs Result Diagrams: 04/12/18 05:30 04/12/18 12:30 Labs: Laboratory Results - last 24 hr 04/12/18 04/12/18 05:30 12:30 WBC 6.8 D RBC 2.87 L Hgb 8.2 L Hct 24.2 L MCV 84.3 MCH 28.6 MCHC 33.9 RDW 15.4 H Plt Count 124 MPV 9.0 Sodium 134 Potassium 3.3 L Chloride 92 L Carbon Dioxide 32 Anion Gap 13 BUN 14 Creatinine 0.6 L Est GFR ( Amer) > 60 Est GFR (Non-Af Amer) > 60 Random Glucose 110 Calcium 8.1 L Magnesium 2.1 Total Bilirubin 1.1 AST 37 H ALT 31 Alkaline Phosphatase 111 Total Protein 5.7 L Albumin 2.9 L Globulin 2.8 Albumin/Globulin Ratio 1.1 Assessment & Plan - Assessment and Plan (Free Text) Assessment: 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 Anemia - secondary to blood loss from surgery - s/p 4U PRBC total 3. A.fib - Coumadin on hold - Rate controlled 4. Cutaneous candidiasis 5. Vaginal candiasis - secondary to antibiotics 6. Essential HTN 7. CAD s/p PCI 8. Hypokalemia Plan: Labs and imaging reviewed. Potassium replaced. Dig level checked. Atenolol and Digoxin for A.fib. Patient is on ASA and Coumadin. Will monitor INR. Pain is controlled and is tolerating diet. Patient is on PO Zyvox. Continue home med of Lasix for HTN and Lipitor for CAD. Monistat and Nystatin for fungal infection. Hgb is stable. Continue physical therapy. Case seen, discussed and reviewed with Dr. Christin Boothe PGY3 - Date & Time Date: 04/12/18 Time: 14:22 <Ajay Waller S - Last Filed: 04/12/18 21:14> Meds - Medications Medications: Current Medications Acetaminophen (Tylenol 325mg Tab) 650 mg PO Q6H [facility] Last Admin: 04/12/18 17:38 Dose: Not Given Aspirin (Ecotrin) 81 mg PO DAILY [facility] Last Admin: 04/12/18 10:07 Dose: 81 mg Atenolol (Tenormin) 25 mg PO BID [facility] Last Admin: 04/12/18 18:05 Dose: 25 mg Atorvastatin Calcium (Lipitor) 20 mg PO HS [facility] Digoxin (Digoxin) 0.125 mg PO 1400 [facility] Last Admin: 04/12/18 13:50 Dose: 0.125 mg Docusate Sodium (Colace) 100 mg PO BID [facility] Last Admin: 04/12/18 18:04 Dose: Not Given Famotidine (Pepcid) 40 mg PO HS [facility] Fluticasone Propionate (Flonase) 1 actuation NS DAILY [facility] Last Admin: 04/12/18 10:07 Dose: 1 spray Furosemide (Lasix) 40 mg PO DAILY [facility] Last Admin: 04/12/18 10:08 Dose: 40 mg Linezolid (Zyvox) 600 mg PO BID [facility]; Protocol Last Admin: 04/12/18 18:05 Dose: 600 mg Magnesium Oxide (Mag-Ox) 400 mg PO BID [facility] Last Admin: 04/12/18 18:04 Dose: 400 mg Miconazole Nitrate (Monistat 7 Vaginal Cream) 1 ea VG [facility] Nystatin (Nystop Topical Powder) 0 gm TOP BID [facility] Last Admin: 04/12/18 18:04 Dose: 1 applic Ondansetron HCl (Zofran Inj) 4 mg IVP Q6H PRN PRN Reason: Nausea/Vomiting Last Admin: 04/12/18 11:45 Dose: 4 mg Oxycodone HCl (Oxycodone Immediate Release Tab) 5 mg PO Q4H PRN PRN Reason: Pain, Mild (1-3) Last Admin: 04/12/18 10:09 Dose: 5 mg Pantoprazole Sodium (Protonix Ec Tab) 40 mg PO 0600 [facility] Last Admin: 04/12/18 05:13 Dose: 40 mg Polyethylene Glycol (Miralax) 17 gm PO DAILY [facility] Last Admin: 04/12/18 10:08 Dose: Not Given Sennosides (Senokot Tab) 17.2 mg PO [facility] Warfarin Sodium (Coumadin) 2 mg PO 1800 [facility] Last Admin: 04/12/18 18:04 Dose: 2 mg Results - Vital Signs Recent Vital Signs: Last Vital Signs Temp 98.7 F 04/12/18 16:00 Pulse 59 L 04/12/18 16:00 Resp 16 04/12/18 16:00 BP 116/67 04/12/18 18:05 Pulse Ox 98 04/12/18 16:00 - Labs Result Diagrams: 04/12/18 05:30 04/12/18 12:30 Labs: Laboratory Results - last 24 hr 04/12/18 04/12/18 05:30 12:30 WBC 6.8 D RBC 2.87 L Hgb 8.2 L Hct 24.2 L MCV 84.3 MCH 28.6 MCHC 33.9 RDW 15.4 H Plt Count 124 MPV 9.0 Sodium 134 Potassium 3.3 L Chloride 92 L Carbon Dioxide 32 Anion Gap 13 BUN 14 Creatinine 0.6 L Est GFR ( Amer) > 60 Est GFR (Non-Af Amer) > 60 Random Glucose 110 Calcium 8.1 L Magnesium 2.1 Total Bilirubin 1.1 AST 37 H ALT 31 Alkaline Phosphatase 111 Total Protein 5.7 L Albumin 2.9 L Globulin 2.8 Albumin/Globulin Ratio 1.1 Assessment & Plan - Assessment and Plan (Free Text) Plan: Pt seen and examined by me. I have reviewed the note by the medical economics consultant. The case was discussed and reviewed with the resident. I reviewed the medications and labs. Pt with knee infection. She is on TCU for rehab. She is having nausea and vomiting. She is being seen by Dr Power. I spoke to daughter about her nausea. Pt is on Coumadin. She is on Abx. Continue with PT. AXR was normal.
--- NOTE | 2018-04-12 16:51 | CP.PCM.CON ---
History of Present Illness - History of Present Illness History of Present Illness: 82 year old female with PMH of CAD S/P PCI, HTN, atrial fibrillation, osteoarthritis S/P right knee replacement came in initially to [facility] [place] because of opening of surgical wound in the knee with pain and bleeding and discharge. She was eventually found to have prosthetic knee infection with VRE and explantation with placement of antibiotic spacer done 04/08/2018. She is now in [facility] for continued medical therapy and physical rehab. Infectious Diseases consult is requested to continue her antibiotic management. She is comfortable on a chair, no fever or chills, no nausea or vomiting, no chest pain, no SOB, no headache or dizziness, no abdominal pain, no increased pain in the right knee, no diarrhea, no dysuria, no cough or colds. Review of Systems - Review of Systems All systems: reviewed and no additional remarkable complaints except (as per HPI) Past Patient History - Infectious Disease Hx of Infectious Diseases: None - Tetanus Immunizations Tetanus Immunization: Unknown - Past Medical History & Family History Past Medical History?: Yes - Past Social History Smoking Status: Never Smoked - CARDIAC Hx Cardiac Disorders: Yes Hx Congestive Heart Failure: Yes Hx Hypercholesterolemia: Yes Hx Hypertension: Yes - PULMONARY Hx Respiratory Disorders: Yes Hx Pneumonia: Yes - NEUROLOGICAL Hx Neurological Disorder: Yes Hx Dizziness: Yes - HEENT Hx HEENT Problems: Yes Hx Cataracts: Yes - RENAL Hx Chronic Kidney Disease: No - ENDOCRINE/METABOLIC Hx Endocrine Disorders: No - HEMATOLOGICAL/ONCOLOGICAL Hx Cancer: No - INTEGUMENTARY Hx Dermatological Problems: No - MUSCULOSKELETAL/RHEUMATOLOGICAL Hx Arthritis: Yes - GASTROINTESTINAL Hx Gastrointestinal Disorders: No - GENITOURINARY/GYNECOLOGICAL Hx Genitourinary Disorders: Yes (PMB) - PSYCHIATRIC Hx Psychophysiologic Disorder: No Hx Substance Use: No - SURGICAL HISTORY Hx Mastectomy: No - ANESTHESIA Hx Anesthesia Reactions: No Hx Malignant Hyperthermia: No Meds Allergies/Adverse Reactions: Allergies Allergy/AdvReac Type Severity Reaction Status Date / Time diphenhydramine Allergy Severe unknown Verified 02/07/18 10:08 [From Benadryl] nitroglycerin Allergy Severe ANAPHYLAXIS Verified 02/07/18 10:08 pcn Allergy Severe RASH Uncoded 02/07/18 10:08 silk tape Allergy blisters Uncoded 04/08/18 16:01 chocolate candy AdvReac Severe HEADACHE Uncoded 08/03/18 10:08 - Medications Medications: Current Medications Acetaminophen (Tylenol 325mg Tab) 650 mg PO Q6H [facility] Aspirin (Ecotrin) 81 mg PO DAILY [facility] Atenolol (Tenormin) 25 mg PO BID [facility] Atorvastatin Calcium (Lipitor) 20 mg PO HS [facility] Digoxin (Digoxin) 0.125 mg PO 1400 [facility] Docusate Sodium (Colace) 100 mg PO BID [facility] Famotidine (Pepcid) 40 mg PO HS [facility] Fluticasone Propionate (Flonase) 1 actuation NS DAILY [facility] Furosemide (Lasix) 40 mg PO DAILY [facility] Linezolid (Zyvox) 600 mg PO BID [facility]; Protocol Magnesium Oxide (Mag-Ox) 400 mg PO BID [facility] Miconazole Nitrate (Monistat 7 Vaginal Cream) 1 ea VG HS [facility] Nystatin (Nystop Topical Powder) 0 gm TOP BID [facility] Ondansetron HCl (Zofran Inj) 4 mg IVP Q6H PRN PRN Reason: Nausea/Vomiting Oxycodone HCl (Oxycodone Immediate Release Tab) 5 mg PO Q4H PRN PRN Reason: Pain, Mild (1-3) Pantoprazole Sodium (Protonix Ec Tab) 40 mg PO 0600 [facility] Polyethylene Glycol (Miralax) 17 gm PO DAILY [facility] Sennosides (Senokot Tab) 17.2 mg PO HS [facility] Warfarin Sodium (Coumadin) 2 mg PO 1800 [facility] Physical Exam - Head Exam Head Exam: NORMAL INSPECTION - ENT Exam ENT Exam: Mucous Membranes Moist - Neck Exam Neck exam: Negative for: Meningismus - Respiratory Exam Respiratory Exam: Decreased Breath Sounds - Cardiovascular Exam Cardiovascular Exam: +S1, +S2 - GI/Abdominal Exam GI & Abdominal Exam: Soft. 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 Simeon as an outpatient will continue to monitor clinically
[2018-04-12] MEDS: Miconazole 2% Vaginal Cream(45 gm) VG SCH (21:27)
--- NOTE | 2018-04-12 22:33 | CON ---
DATE: 04/12/2018 CARDIOLOGY CONSULTATION REASON FOR THE CONSULTATION: Continuity of care in Transitional Care Unit. BRIEF CLINICAL HISTORY: This is an 82-year-old female with a past medical history significant for chronic atrial fibrillation, on Coumadin at home and atenolol, admitted initially because of osteoarthritis 6 weeks ago, status post right knee joint replacement on 02/18/2018, later on developed hematoma and ultimately possibly infected. The patient on this admission, on 03/31/2018 had explanted the right knee prosthesis. Now, patient is postop, seen in floor and being followed there. Now, patient is in the Transitional Care Unit for the continuity of care. Yesterday, Coumadin was started. PAST MEDICAL HISTORY: Significant for hypertension, coronary artery disease, atrial fibrillation, osteoarthritis, status post PTCA in the past, on Coumadin. History of PTCA in the remote 1999. PAST SURGICAL HISTORY: Significant for fractured tibia in 1989, history of total right knee replacement on 02/18/2018, history of explanted right knee 03/31/2018. PREVIOUS CARDIAC WORKUP: His stress test 02/22/2016 shows ejection fraction of 61%, normal myocardial perfusion study. No ischemia. No change from 2014. Patient had an echocardiography on 04/09/2018 that revealed ejection fraction of 65%, normal RV size, right atrium dilated, left atrium is dilated, calcified aortic valve normal, mild mitral regurgitation, tricuspid appears normal, [id number] tricuspid regurgitation, RV systolic pressure of 65, consistent with a moderate pulmonary hypertension. REVIEW OF SYSTEMS: As per HPI. CURRENT MEDICATIONS: Patient at home was taking Coumadin 3.5 mg, simvastatin, potassium, digoxin, atenolol, and aspirin. Coumadin was on hold after the knee surgery, restarted yesterday in acute floor. PHYSICAL EXAMINATION: VITAL SIGNS: Temperature afebrile, heart rate 83, blood pressure 144/75. HEENT: PERRLA. Extraocular muscles intact. NECK: Supple. No carotid bruit or thyromegaly. CHEST: Clear to auscultation. HEART: S1 and S2, regular. ABDOMEN: Soft. EXTREMITIES: Clubbing and cyanosis negative. LABORATORY DATA: WBC 6.8, hemoglobin 8.3, hematocrit 24.2, platelet count 124. Chemistry shows sodium 130, potassium 3.7, chloride 94, carbon dioxide 28, anion gap of 11, BUN 15, creatinine 0.6. INR 1.26 on 04/09/2018. IMPRESSION: An 82-year-old female with a history of atrial fibrillation, chronic, on anticoagulation; history of coronary artery disease, status post percutaneous transluminal coronary angioplasty in 1999; admitted for right knee joint replacement, then got hematoma, now the knee joint explanted on 03/31/2018, now transferred to Transitional Care Unit for continuity of care. RECOMMENDATIONS: Start Coumadin 2 mg daily yesterday, continue atenolol, continue atorvastatin, continue p.o. Lasix, continue digoxin. We will repeat the blood workup, INR tomorrow. We will follow with you. Thank you, Dr. Waller, for providing us the opportunity in taking care of patient, Norma Segura. Gabbi Medrano MD
--- NOTE | 2018-04-12 23:31 | CON ---
DATE: 04/12/2018 (Always retain DOS field) HISTORY OF PRESENT ILLNESS: In short, the patient is 82 years old. The patient has multiple medical issues including coronary artery disease, stent placement, hypertension, Afib, osteoarthritis, right knee. The patient was admitted on the medical site for evaluation of right knee infection. The patient is status post knee replacement surgery. The patient was in the hospital since 03/31/2018. The patient was transferred to Transitional Care Unit on 04/11/2018. Psych consult was called for evaluation of psychogenic vomiting. The patient was seen and examined. The patient presented to be alert and oriented, pleasant, cooperative. The patient was not aware of this engineering writer's consultation. The patient reported that she does not feel depressed. The patient denied that she feels anxious. The patient is quite aware of her medical history. The patient feels optimistic about future. The patient reported that most likely, her knee needs to be replaced again. The patient feels kind of upset which is expected but denied feeling of hopelessness or helplessness. In regards of the vomit, the patient reported that she does not have appetite. The patient reported that at times, she feels nauseated and she would have vomit. The patient adamantly denied that before vomit, she feels anxious or she feels depressed. The patient denied that she was inducing vomiting herself. The patient does not present to be dramatic. The patient does not present to be anxious. Going back to the patient's past history, the patient denied history of being depressed. The patient denied talking to the psychiatrist in the past. 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 The patient denied that she ever thought that she wanted to end up her life. The patient is looking forward for future. Denied history of hearing voices, denied seeing things. The patient does not present to be psychotic at present moment either. Vital signs: Reviewed. Temperature 98, pulse is 63, blood pressure 144/75, respiration 14, oxygen saturation is 92. Medications reviewed. The patient is on Tylenol, aspirin, atenolol, Lipitor, digoxin, Colace, Pepcid, Flonase, Lasix, Zyvox, magnesium oxide, miconazole, nystatin, Zofran, oxycodone, Protonix, MiraLax, Senokot and Coumadin. Labs reviewed. Most recent was from today. Hemoglobin and hematocrit of 8.2 and 24.4, potassium 3.3, chloride 92. MENTAL STATUS EXAM: The patient presented to be alert and oriented, pleasant, cooperative, socially appropriate. Good eye contact. Speech was monotonic, low volume, but overall normal rate, tone, quality and quantity. Mood described, "I am okay". Affect was constricted, but reactive. Mood congruent. Thought process coherent and goal directed. Thought content, the patient denied visual, auditory, tactile hallucinations. Denied paranoid ideation. The patient denied thoughts of harming herself or others. Denied intent or plan. The patient does not present to be psychotic. Denied hearing voices, denied seeing things. Denied paranoid ideation. Insight and judgment seems to be fair. Impulses are well controlled. IMPRESSION: This engineering writer do not believe that the patient has psychogenic vomiting whatsoever. The patient was on antibiotics. Maybe it is related to the fact that she lost appetite because of that. Moreover, the patient reported that she does not like hospital food and the patient reported that her daughter is going to cook for her today and she is looking forward to eat home-made food. This engineering writer cannot exclude, maybe, the patient might benefit from the medication, but the patient said that she does not want to be on any Zofran, but this engineering writer educated the patient to try that medication and maybe nausea and vomiting will be improving. The patient agreed. PLAN: This engineering writer will follow up on this patient tomorrow just to make sure that the patient is doing okay in regards of psychogenic vomiting. I do not think so. Moreover, if the patient will continue nausea and vomiting in the future despite of Zofran, there is a chance to try Thorazine, but it will be last resort and the patient needs to be in agreement to try that medication. Meanwhile, the patient presented well. Not in any imminent danger to self or others. We will follow up and advise accordingly. Should you have any questions, give me a call back. Ashely Klein MD [facility] # [phone]
[2018-04-13] MEDS: Pantoprazole 40 mg EC Tab PO SCH (06:14)
[2018-04-13] MEDS: oxyCODONE 5 mg Immediate Release Tab PO PRN ×2 (06:14→14:07)
[2018-04-13 06:55] LABS: HEMOGLOBIN 8.6 g/dL (12.0-16.0); MEAN CELL VOLUME 85.3 fl (80.0-105.0); MEAN CORPUSCULAR HEMOGLOBIN 28.7 pg (25.0-35.0); MEAN CORPUSCULAR HGB CONC 33.6 g/dl (31.0-37.0); MEAN PLATELET VOLUME 8.7 fl (7.0-11.0); RED CELL DISTRIBUTION WIDTH 15.3 % (11.5-14.5); WHITE BLOOD COUNT 7.1 10^3/ul (4.5-11.0)
[2018-04-13 07:34] LABS: INR 1.11; PROTHROMBIN TIME 12.8 SECONDS (9.4-12.5)
[2018-04-13] MEDS: Magnesium Oxide 400 mg Tab UD PO SCH ×2 (09:17→17:51)
[2018-04-13] MEDS: Fluticasone Nasal 50 mcg/Spray NS SCH (09:17)
[2018-04-13] MEDS: POLYETHYLENE GLYCOL 3350 17 GM/Dose PACKET PO SCH (09:18)
[2018-04-13] MEDS: Nystatin 100,000 Units/gm Topical Pow(15 gm) TOP SCH ×2 (09:18→17:51)
[2018-04-13] MEDS: Digoxin 125 mcg (0.125 mg) Tab PO SCH (14:08)
--- NOTE | 2018-04-13 14:35 | PN ---
DATE: 04/13/2018 REASON FOR THE CONSULTATION: Continuity of care in Transitional Care Unit, chronic atrial fibrillation, history of coronary artery disease, status post knee surgery. SUBJECTIVE: The patient denies any chest pain, shortness of breath or any palpitations. OBJECTIVE: GENERAL: Not in any apparent distress. VITAL SIGNS: Temperature afebrile, heart rate 59, blood pressure 102/53. HEENT: PERRLA. Extraocular muscles intact. NECK: Supple. No carotid bruit or thyromegaly. CHEST: Clear to auscultation. HEART: S1 and S2, regular. ABDOMEN: Soft. EXTREMITIES: Clubbing and cyanosis negative.. LABORATORY DATA: Blood workup as follows: WBC 7.1, hemoglobin 8.6, hematocrit 25.6, platelet count 140. Chemistry shows sodium 134, potassium 3.3, chloride 92, carbon dioxide 30, anion gap of 14, creatinine 0.6 as of yesterday. IMPRESSION: This is an 82-year-old female with past medical history significant for coronary artery disease, status post percutaneous transluminal coronary angioplasty in 1999, history of chronic atrial fibrillation and on Coumadin who had recently knee surgery done, but later on, had a hematoma that infected, later on patient had explanted the knee joint on 03/31/2018, now the patient in the Transitional Care Unit for the continuity of care. Today's INR is 1.1. We will gradually continue 2 mg of Coumadin and the patient was at home 3.5 so we will change to 3; encourage to build up INR level. We will follow with you. Give physical therapy. We will follow with you. We will get the daily PT/INR from tomorrow. Thank you, Dr. Waller, for providing us the opportunity in taking care of the patient, Norma Segura. Gabbi Medrano MD
--- NOTE | 2018-04-13 14:45 | CP.PCM.PN ---
Subjective - Date & Time of Evaluation Date of Evaluation: 04/13/18 Time of Evaluation: 11:20 - Subjective Subjective: Comfortable in bed, afebrile, non-toxic. Objective - Vital Signs/Intake and Output Vital Signs (last 24 hours): Temp Pulse Resp BP Pulse Ox 98.7 F 59 L 16 116/67 98 04/12/18 16:00 04/12/18 16:00 04/12/18 16:00 04/12/18 18:05 04/12/18 16:00 Intake and Output: 04/13/18 04/13/18 06:59 18:59 Output Total 500 Balance -500 - Medications Medications: Current Medications Acetaminophen (Tylenol 325mg Tab) 650 mg PO Q6H [facility] Last Admin: 04/13/18 06:15 Dose: Not Given Aspirin (Ecotrin) 81 mg PO DAILY [facility] Last Admin: 04/12/18 10:07 Dose: 81 mg Atenolol (Tenormin) 25 mg PO BID [facility] Last Admin: 04/12/18 18:05 Dose: 25 mg Atorvastatin Calcium (Lipitor) 20 mg PO [facility] Last Admin: 04/12/18 21:26 Dose: 20 mg Digoxin (Digoxin) 0.125 mg PO 1400 [facility] Last Admin: 04/12/18 13:50 Dose: 0.125 mg Docusate Sodium (Colace) 100 mg PO BID [facility] Last Admin: 04/12/18 18:04 Dose: Not Given Famotidine (Pepcid) 40 mg PO HS [facility] Last Admin: 04/12/18 21:27 Dose: 40 mg Fluticasone Propionate (Flonase) 1 actuation NS DAILY [facility] Last Admin: 04/12/18 10:07 Dose: 1 spray Furosemide (Lasix) 40 mg PO DAILY [facility] Last Admin: 04/12/18 10:08 Dose: 40 mg Linezolid (Zyvox) 600 mg PO BID [facility]; Protocol Last Admin: 04/12/18 18:05 Dose: 600 mg Magnesium Oxide (Mag-Ox) 400 mg PO BID [facility] Last Admin: 04/12/18 18:04 Dose: 400 mg Miconazole Nitrate (Monistat 7 Vaginal Cream) 1 ea VG HS [facility] Last Admin: 04/12/18 21:27 Dose: 1 applic Nystatin (Nystop Topical Powder) 0 gm TOP BID [facility] Last Admin: 04/12/18 18:04 Dose: 1 applic Ondansetron HCl (Zofran Inj) 4 mg IVP Q6H PRN PRN Reason: Nausea/Vomiting Last Admin: 04/12/18 11:45 Dose: 4 mg Oxycodone HCl (Oxycodone Immediate Release Tab) 5 mg PO Q4H PRN PRN Reason: Pain, Mild (1-3) Last Admin: 04/13/18 06:14 Dose: 5 mg Pantoprazole Sodium (Protonix Ec Tab) 40 mg PO 0600 [facility] Last Admin: 04/13/18 06:14 Dose: 40 mg Polyethylene Glycol (Miralax) 17 gm PO DAILY [facility] Last Admin: 04/12/18 10:08 Dose: Not Given Sennosides (Senokot Tab) 17.2 mg PO HS [facility] Last Admin: 04/12/18 21:28 Dose: 17.2 mg Warfarin Sodium (Coumadin) 2 mg PO 1800 [facility] Last Admin: 04/12/18 18:04 Dose: 2 mg - Labs Labs: 04/13/18 06:30 04/12/18 12:30 PT 12.8 SECONDS (9.4-12.5) H 04/13/18 06:30 INR 1.11 04/13/18 06:30 - Constitutional Appears: No Acute Distress, Chronically Ill - Head Exam Head Exam: NORMAL INSPECTION - Respiratory Exam Respiratory Exam: Decreased Breath Sounds - Cardiovascular Exam Cardiovascular Exam: +S1, +S2 - GI/Abdominal Exam GI & Abdominal Exam: Soft. 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 Simeon as an outpatient will continue to follow clinically
[2018-04-13] MEDS: guaiFENesin 100 mg/5 ml Syrup UD PO PRN ×2 (18:18→22:36)
--- NOTE | 2018-04-13 20:24 | PN ---
DATE: 04/13/2018 SUBJECTIVE: The patient is sitting up in bed, she had dry heaves earlier today. She is eating lunch. She denies any nausea, vomiting. She denies any heartburn. PHYSICAL EXAMINATION: VITAL SIGNS: Reveal temperature afebrile. Blood pressure 102/53. HEENT: Reveals sclerae to be white. Conjunctivae pink. NECK: Supple. CHEST: Lungs are clear. HEART: Reveals regular rate and rhythm. ABDOMEN: Soft, nontender. EXTREMITIES: Show no edema. Her right leg is in a dressing. LABORATORY DATA: Reveal hemoglobin of 8.6. Chemistries reveal no new chemistries. 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 The patient does have a history of anxiety disorder and depression. RECOMMENDATIONS: 1. We will start the patient on BuSpar 5 mg p.o. b.i.d. with the hope that this will help with her dry heaves. 2. Continue PPI. 3. Continue Zofran as needed. Emile Power MD
[2018-04-13] MEDS: Miconazole 2% Vaginal Cream(45 gm) VG SCH (21:31)
--- NOTE | 2018-04-13 22:41 | PN ---
DATE: 04/13/2018 SUBJECTIVE: The patient initially was seen yesterday. Please see notes for more detailed information. This short story writer was involved into the patient's care because questionable self-induced vomiting. From this short story writer's assessment, the patient does not present to be anxious or depressed or attention seeking behavior. As per nursing staff, when family is around, the patient is better and the patient does not have any vomiting, but whenever the patient's family leaves, she has all the symptoms of upset stomach as well as nausea as well as vomiting. The patient was seen and examined today. The patient reported that she does not feel good. The patient did not want to have interview. This short story writer again educated about Thorazine, but the patient does not want to take any more medications. This is the patient's right. On top of that, the patient might benefit from Zofran on scheduled dose, but this is up to the medical team. LABORATORY DATA: Reviewed. Most recent was from today. Chemistry: Potassium 6.3, chloride 92. Toxicology, digoxin 1. MENTAL STATUS EXAMINATION: The patient presented to be pale, somewhat apathetic. The patient reported that she does not feel good. Mood described "I'm fine." Affect was flat. Thought process, coherent and goal directed. Thought content: The patient denied visual, auditory, or tactile hallucinations. Denied paranoid ideation. The patient denied thoughts of harming herself or others. Denied intent or plan. Insight and judgment seem to be fair. Impulses are well controlled. IMPRESSION: Nausea and vomiting, could be related to the medical issues. The patient is on antibiotics. Also, the patient is on pain killers, which could give the patient nausea and vomiting. The patient did not present as somatic or self-induced vomiting. PLAN: This short story writer suggested Thorazine 25 mg twice a day only for 2 days. The patient declined that offer. The patient does not want to take any medications as of now. This short story writer will follow up on this patient from Saturday. There is no acute psychiatric issues. Moreover, self-induced vomiting is diagnosis of exclusion, but the patient has multiple medical problems, which could affect the patient's presentation. Thank you very much. Discussed with nursing staff. Should you have any questions, give me a call back. Ashely Klein MD [facility] # [phone]
[2018-04-14] MEDS: guaiFENesin 100 mg/5 ml Syrup UD PO PRN (04:27)
[2018-04-14] MEDS: Pantoprazole 40 mg EC Tab PO SCH (05:42)
[2018-04-14 06:53] LABS: INR 1.23; PROTHROMBIN TIME 14.2 SECONDS (9.4-12.5)
--- NOTE | 2018-04-14 08:04 | CP.PCM.PN ---
<Maru Boothe - Last Filed: 04/14/18 09:55> Subjective - Date & Time of Evaluation Date of Evaluation: 04/14/18 Time of Evaluation: 07:00 - Subjective Subjective: Medicine Progress Note for Jose Manuel London PGY3 Patient seen and examined at bedside. There were no acute overnight events as per nursing staff. Patient is complaining of coughing clear mucus and vomited from the coughing. She denies fever/chills, sore throat, shortness of breath, nausea/diarrhea, numbness/tingling, dysuria or hematuria. She denies any pain in her R knee. Objective - Vital Signs/Intake and Output Vital Signs (last 24 hours): Temp Pulse Resp BP Pulse Ox 98.7 F 59 L 16 106/68 98 04/14/18 04:25 04/12/18 16:00 04/12/18 16:00 04/13/18 17:52 04/12/18 16:00 Intake and Output: 04/14/18 04/14/18 06:59 18:59 Output Total 100 Balance -100 - Medications Medications: Current Medications Acetaminophen (Tylenol 325mg Tab) 650 mg PO Q6H [facility] Last Admin: 04/14/18 04:25 Dose: 650 mg Aspirin (Ecotrin) 81 mg PO DAILY [facility] Last Admin: 04/13/18 09:17 Dose: 81 mg Atenolol (Tenormin) 25 mg PO BID [facility] Last Admin: 04/13/18 17:52 Dose: 25 mg Atorvastatin Calcium (Lipitor) 20 mg PO [facility] Last Admin: 04/13/18 21:30 Dose: 20 mg Buspirone HCl (Buspar) 5 mg PO BID [facility]; Protocol Last Admin: 04/13/18 17:50 Dose: 5 mg Digoxin (Digoxin) 0.125 mg PO 1400 [facility] Last Admin: 04/13/18 14:08 Dose: 0.125 mg Docusate Sodium (Colace) 100 mg PO BID [facility] Last Admin: 04/13/18 17:50 Dose: 100 mg Famotidine (Pepcid) 40 mg PO HS [facility] Last Admin: 04/13/18 21:30 Dose: 40 mg Fluticasone Propionate (Flonase) 1 actuation NS DAILY [facility] Last Admin: 04/13/18 09:17 Dose: 1 spray Furosemide (Lasix) 40 mg PO DAILY [facility] Last Admin: 04/13/18 09:17 Dose: Not Given Guaifenesin (Robitussin) 100 mg PO Q4H PRN PRN Reason: Cough Last Admin: 04/14/18 04:27 Dose: 100 mg Linezolid (Zyvox) 600 mg PO BID [facility]; Protocol Last Admin: 04/13/18 17:52 Dose: 600 mg Magnesium Oxide (Mag-Ox) 400 mg PO BID [facility] Last Admin: 04/13/18 17:51 Dose: 400 mg Miconazole Nitrate (Monistat 7 Vaginal Cream) 1 ea VG HS [facility] Last Admin: 04/13/18 21:31 Dose: 1 applic Nystatin (Nystop Topical Powder) 0 gm TOP BID [facility] Last Admin: 04/13/18 17:51 Dose: 1 applic Ondansetron HCl (Zofran Inj) 4 mg IVP Q6H PRN PRN Reason: Nausea/Vomiting Last Admin: 04/12/18 11:45 Dose: 4 mg Oxycodone HCl (Oxycodone Immediate Release Tab) 5 mg PO Q4H PRN PRN Reason: Pain, Mild (1-3) Last Admin: 04/13/18 14:07 Dose: 5 mg Pantoprazole Sodium (Protonix Ec Tab) 40 mg PO 0600 [facility] Last Admin: 04/14/18 05:42 Dose: 40 mg Polyethylene Glycol (Miralax) 17 gm PO DAILY [facility] Last Admin: 04/13/18 09:18 Dose: 17 gm Sennosides (Senokot Tab) 17.2 mg PO [facility] Last Admin: 04/13/18 21:30 Dose: 17.2 mg Warfarin Sodium (Coumadin) 3 mg PO 1800 [facility] Last Admin: 04/13/18 17:51 Dose: 3 mg - Labs Labs: 04/13/18 06:30 04/12/18 12:30 PT 14.2 SECONDS (9.4-12.5) H 04/14/18 06:30 INR 1.23 04/14/18 06:30 - Constitutional Appears: No Acute Distress - Head Exam Head Exam: ATRAUMATIC, NORMAL INSPECTION, NORMOCEPHALIC - Eye Exam Eye Exam: Normal appearance, PERRL Pupil Exam: NORMAL ACCOMODATION, PERRL - ENT Exam ENT Exam: Mucous Membranes Moist, Normal Exam, Normal Oropharynx - Neck Exam Neck Exam: Full ROM, Normal Inspection. absent: Tenderness - Respiratory Exam Respiratory Exam: Clear to Ausculation Bilateral, NORMAL BREATHING PATTERN. absent: Rales, Rhonchi, Wheezes - Cardiovascular Exam Cardiovascular Exam: REGULAR RHYTHM, +S1, +S2. absent: Gallop, Rubs, Murmur - GI/Abdominal Exam GI & Abdominal Exam: Soft, Normal Bowel Sounds. absent: Rigid, Tenderness, Mass, Rebound - Extremities Exam Extremities Exam: Normal Capillary Refill. absent: Calf Tenderness, Pedal Edema Additional comments: R leg has dressing in place- clean and dry - Neurological Exam Neurological Exam: Alert, Awake, CN II-XII Intact, Oriented x3 - Psychiatric Exam Psychiatric exam: Normal Affect, Normal Mood - Skin Skin Exam: Dry, Warm Assessment and Plan - Assessment and Plan (Free Text) Assessment: 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 Anemia - secondary to blood loss from surgery - s/p 4U PRBC total 3. Cough 4. A.fib - Coumadin on hold - Rate controlled 5. Cutaneous candidiasis 6. Vaginal candiasis - secondary to antibiotics 7. Essential HTN 8. CAD s/p PCI 9. Hypokalemia Plan: Labs and imaging reviewed. Hgb is stable. Patient is on Robitussin for cough which said is not helping. Will add Tessalon Perles. Will obtain CXR to rule out pneumonia. GI and psych evaluated patient for nausea. Continue PO Zyvox for VRE as per ID. Countinue Atenolol, Digoxin and Coumadin for A.fib. INR still subtherapeutic. Will continue to monitor. Continue home med of Lasix for HTN and Lipitor for CAD. Monistat and Nystatin for fungal infection. Continue physical therapy. Patient is tolerating diet. Pain is controlled. Case seen, discussed and reviewed with Dr. Christin Boothe PGY3 <Ajay Waller S - Last Filed: 04/15/18 19:57> Objective - Vital Signs/Intake and Output Vital Signs (last 24 hours): Temp Pulse Resp BP Pulse Ox 98.4 F 71 18 144/73 97 04/15/18 16:00 04/15/18 18:27 10/09/18 16:00 04/15/18 18:27 04/15/18 16:00 - Medications Medications: Current Medications Acetaminophen (Tylenol 325mg Tab) 650 mg PO Q6H [facility] Last Admin: 04/15/18 18:25 Dose: Not Given Albuterol/Ipratropium (Duoneb 3 Mg/0.5 Mg (3 Ml) Ud) 3 ml IH [id number] [facility] Aspirin (Ecotrin) 81 mg PO DAILY [facility] Last Admin: 04/15/18 10:22 Dose: 81 mg Atenolol (Tenormin) 25 mg PO BID [facility] Last Admin: 04/15/18 18:27 Dose: 25 mg Atorvastatin Calcium (Lipitor) 20 mg PO HS [facility] Last Admin: 04/14/18 21:03 Dose: 20 mg Benzonatate (Tessalon Perles) 100 mg PO TID [facility] Stop: 04/18/18 23:59 Last Admin: 04/15/18 18:27 Dose: 100 mg Buspirone HCl (Buspar) 5 mg PO BID [facility]; Protocol Last Admin: 04/15/18 18:25 Dose: 5 mg Digoxin (Digoxin) 0.125 mg PO 1400 [facility] Last Admin: 04/15/18 14:08 Dose: 0.125 mg Docusate Sodium (Colace) 100 mg PO BID [facility] Last Admin: 04/15/18 18:25 Dose: Not Given Enoxaparin Sodium (Lovenox) 70 mg SC Q12H [facility]; Protocol Last Admin: 04/15/18 18:26 Dose: 70 mg Famotidine (Pepcid) 40 mg PO HS [facility] Last Admin: 04/14/18 21:03 Dose: 40 mg Fluticasone Propionate (Flonase) 1 actuation NS DAILY [facility] Last Admin: 04/15/18 10:25 Dose: 2 spray Furosemide (Lasix) 40 mg PO DAILY [facility] Last Admin: 04/15/18 10:22 Dose: 40 mg Guaifenesin (Robitussin) 100 mg PO Q4H PRN PRN Reason: Cough Last Admin: 04/15/18 06:24 Dose: 100 mg Linezolid (Zyvox) 600 mg PO BID [facility]; Protocol Last Admin: 04/15/18 18:27 Dose: 600 mg Magnesium Oxide (Mag-Ox) 400 mg PO BID [facility] Last Admin: 04/15/18 18:27 Dose: 400 mg Miconazole Nitrate (Monistat 7 Vaginal Cream) 1 ea VG [facility] Last Admin: 04/14/18 21:04 Dose: 1 applic Nystatin (Nystop Topical Powder) 0 gm TOP BID [facility] Last Admin: 04/15/18 18:27 Dose: Not Given Ondansetron HCl (Zofran Inj) 4 mg IVP Q6H PRN PRN Reason: Nausea/Vomiting Last Admin: 04/14/18 16:29 Dose: 4 mg Oxycodone/Acetaminophen (Percocet 5/325 Mg Tab) 1 tab PO Q6H PRN; Protocol PRN Reason: Pain, moderate (4-7) Stop: 04/18/18 16:07 Pantoprazole Sodium (Protonix Ec Tab) 40 mg PO 0600 [facility] Last Admin: 04/15/18 05:33 Dose: 40 mg Polyethylene Glycol (Miralax) 17 gm PO DAILY [facility] Last Admin: 04/15/18 10:22 Dose: 17 gm Sennosides (Senokot Tab) 17.2 mg PO [facility] Last Admin: 04/14/18 21:01 Dose: Not Given Warfarin Sodium (Coumadin) 4 mg PO 1800 [facility] Last Admin: 04/15/18 18:26 Dose: 4 mg - Labs Labs: 04/13/18 06:30 04/12/18 12:30 PT 14.2 SECONDS (9.4-12.5) H 04/15/18 06:10 INR 1.23 04/15/18 06:10 Assessment and Plan - Assessment and Plan (Free Text) Plan: Pt seen and examined by me. This is a late entry.I have reviewed the note by the medical facilities section director. The case was discussed and reviewed with the resident. I reviewed the medications and labs. Pt with R knee infection. Her nausea is better but not resolved. Pt is on Coumadin for A fib. Pt is on Zyvox for VRE. Pt is on Robitussin for cough. Continue with PT. I spoke to pt's daughter a few days ago about the nausea.
[2018-04-14] MEDS: Fluticasone Nasal 50 mcg/Spray NS SCH (10:12)
[2018-04-14] MEDS: Magnesium Oxide 400 mg Tab UD PO SCH ×2 (10:13→17:03)
[2018-04-14] MEDS: POLYETHYLENE GLYCOL 3350 17 GM/Dose PACKET PO SCH (10:13)
[2018-04-14] MEDS: Nystatin 100,000 Units/gm Topical Pow(15 gm) TOP SCH ×2 (10:15→17:04)
--- NOTE | 2018-04-14 11:49 | PN ---
DATE: 04/14/2018 SUBJECTIVE: The patient is lying in bed. She now states that her "dry heaves" occur after coughing, which is precipitated by taking certain medications with water. She states that she had a paroxysm of cough followed by dry heaves after taking Tylenol yesterday. She denies any hematemesis or melena. PHYSICAL EXAMINATION: VITAL SIGNS: Reveal temperature of 98.7, blood pressure 126/74, heart rate of 72. HEENT: Reveals sclerae to be white. Conjunctivae pink. NECK: Supple. CHEST: Lungs are clear. HEART: Reveals an irregular rate. ABDOMEN: Soft, nontender. EXTREMITIES: Show no edema. Her right knee is in a surgical dressing. IMPRESSION: An 82-year-old female with dry heaves for several weeks. She now states that her dry heaves are related to coughing after taking Tylenol with water. One must rule out oropharyngeal dysphagia. RECOMMENDATIONS: We will request a swallowing evaluation. Emile Power MD
--- NOTE | 2018-04-14 12:54 | RAD ---
Date of service: 04/14/2018 HISTORY: cough r/o pna COMPARISON: 04/05/2018 TECHNIQUE: Chest PA and lateral FINDINGS: LUNGS: No active pulmonary disease. PLEURA: No significant pleural effusion identified. No pneumothorax apparent. CARDIOVASCULAR: Moderate cardiomegaly OSSEOUS STRUCTURES: No significant abnormalities. VISUALIZED UPPER ABDOMEN: Normal. OTHER FINDINGS: Left-sided PICC line terminates in the SVC IMPRESSION: No active disease.
--- NOTE | 2018-04-14 14:21 | PN ---
DATE: 04/14/2018 REASON FOR THE CONSULTATION AND FOLLOWUP: Continuity of care in Transitional Care Unit, history of chronic atrial fibrillation, history of coronary artery disease, status post knee surgery. SUBJECTIVE: The patient denies any chest pain, shortness of breath, or any palpitation. OBJECTIVE GENERAL: Not in apparent distress. VITAL SIGNS: As follows: Temperature afebrile, heart rate 72, blood pressure 126/74. HEENT: PERRLA. Extraocular muscles intact. NECK: Supple. No carotid bruit or thyromegaly. CHEST: Clear to auscultation. HEART: S1 and S2, regular. ABDOMEN: Soft. EXTREMITIES: Clubbing and cyanosis negative. LABORATORY DATA: Blood workup as follows: WBC 7.1, hemoglobin 8.6, hematocrit 25.6, platelet count 140 as of yesterday. Chemistry as of yesterday, sodium 134, potassium 3.3, chloride 92, carbon dioxide 32, anion gap of 13, BUN 14, creatinine 0.4. INR today is 1.23. IMPRESSION: Chronic atrial fibrillation, coronary artery disease, status post knee surgery, status post hematoma, status post explanted knee. RECOMMENDATIONS: Continue gradually build up INR. To prevent further hematoma in the knee joint. Discussed with the patient . We will continue 3 mg today. Thank you, Dr. Waller, for providing us the opportunity in taking care of the patient, Norma Segura. We will change to 4 mg from today. We will follow PT/INR. Gabbi Medrano MD
[2018-04-14] MEDS: Digoxin 125 mcg (0.125 mg) Tab PO SCH (14:38)
--- NOTE | 2018-04-14 15:57 | CP.PCM.PN ---
Subjective - Date & Time of Evaluation Date of Evaluation: 04/14/18 Time of Evaluation: 15:53 - Subjective Subjective: Patient complains of continued knee pain. Says she has been coughing for a week. Denies CP, numbness/tingling. Still "dry heaving." Objective - Vital Signs/Intake and Output Vital Signs (last 24 hours): Temp Pulse Resp BP Pulse Ox 98.7 F 72 16 126/74 98 04/14/18 04:25 04/14/18 10:15 04/12/18 16:00 04/14/18 10:15 04/12/18 16:00 Intake and Output: 04/14/18 04/14/18 06:59 18:59 Output Total 100 Balance -100 - Medications Medications: Current Medications Acetaminophen (Tylenol 325mg Tab) 650 mg PO Q6H [facility] Last Admin: 04/14/18 10:09 Dose: 650 mg Aspirin (Ecotrin) 81 mg PO DAILY [facility] Last Admin: 04/14/18 10:11 Dose: 81 mg Atenolol (Tenormin) 25 mg PO BID [facility] Last Admin: 04/14/18 10:15 Dose: 25 mg Atorvastatin Calcium (Lipitor) 20 mg PO HS [facility] Last Admin: 04/13/18 21:30 Dose: 20 mg Benzonatate (Tessalon Perles) 100 mg PO TID PRN PRN Reason: Cough Buspirone HCl (Buspar) 5 mg PO BID [facility]; Protocol Last Admin: 04/14/18 10:10 Dose: 5 mg Digoxin (Digoxin) 0.125 mg PO 1400 [facility] Last Admin: 04/14/18 14:38 Dose: 0.125 mg Docusate Sodium (Colace) 100 mg PO BID [facility] Last Admin: 04/14/18 10:11 Dose: 100 mg Famotidine (Pepcid) 40 mg PO HS [facility] Last Admin: 04/13/18 21:30 Dose: 40 mg Fluticasone Propionate (Flonase) 1 actuation NS DAILY [facility] Last Admin: 04/14/18 10:12 Dose: 2 spray Furosemide (Lasix) 40 mg PO DAILY [facility] Last Admin: 04/14/18 10:13 Dose: 40 mg Guaifenesin (Robitussin) 100 mg PO Q4H PRN PRN Reason: Cough Last Admin: 04/14/18 04:27 Dose: 100 mg Linezolid (Zyvox) 600 mg PO BID [facility]; Protocol Last Admin: 04/14/18 10:15 Dose: 600 mg Magnesium Oxide (Mag-Ox) 400 mg PO BID [facility] Last Admin: 04/14/18 10:13 Dose: 400 mg Miconazole Nitrate (Monistat 7 Vaginal Cream) 1 ea VG HS [facility] Last Admin: 04/13/18 21:31 Dose: 1 applic Nystatin (Nystop Topical Powder) 0 gm TOP BID [facility] Last Admin: 04/14/18 10:15 Dose: 2 applic Ondansetron HCl (Zofran Inj) 4 mg IVP Q6H PRN PRN Reason: Nausea/Vomiting Last Admin: 04/12/18 11:45 Dose: 4 mg Oxycodone HCl (Oxycodone Immediate Release Tab) 5 mg PO Q4H PRN PRN Reason: Pain, Mild (1-3) Last Admin: 04/13/18 14:07 Dose: 5 mg Pantoprazole Sodium (Protonix Ec Tab) 40 mg PO 0600 [facility] Last Admin: 04/14/18 05:42 Dose: 40 mg Polyethylene Glycol (Miralax) 17 gm PO DAILY [facility] Last Admin: 04/14/18 10:13 Dose: 17 gm Sennosides (Senokot Tab) 17.2 mg PO [facility] Last Admin: 04/13/18 21:30 Dose: 17.2 mg Warfarin Sodium (Coumadin) 4 mg PO 1800 [facility] - Labs Labs: 04/13/18 06:30 04/12/18 12:30 PT 14.2 SECONDS (9.4-12.5) H 04/14/18 06:30 INR 1.23 04/14/18 06:30 - Extremities Exam Additional comments: Right knee dressing changed. Incision intact, small amt of sang drainage distal wound, +ecchymosis, but incision healing well. Calves soft NT neg homans +DP/PT sock adjusted. Assessment and Plan (1) Infection of prosthetic right knee joint Assessment & Plan: POD#6 s/p explant of prosthesis and implantation of antibiotic spacer knee immob VTE proph, on coumadin, at this point would consider proph lovenox dosing until INR is therapeutic O2 sat 99 IS OOB, PT/OT PICC in place 04/14 CXR no infiltrate antibiotics per ID for VRE (noted in most recent tissue cx from 04/08) d/w DR. Watson, agrees with abvoe Status: Acute
[2018-04-14] MEDS: Enoxaparin 40 mg Syringe SC SCH (19:35)
[2018-04-14] MEDS: Miconazole 2% Vaginal Cream(45 gm) VG SCH (21:04)
--- NOTE | 2018-04-14 21:48 | CP.PCM.PN ---
Subjective - Date & Time of Evaluation Date of Evaluation: 04/14/18 Time of Evaluation: 12:05 - Subjective Subjective: No fevers, not in distress. Objective - Vital Signs/Intake and Output Vital Signs (last 24 hours): Temp Pulse Resp BP Pulse Ox 98.1 F 61 18 125/57 L 95 04/14/18 16:00 04/14/18 17:04 04/14/18 16:00 04/14/18 17:04 04/14/18 16:00 - Medications Medications: Current Medications Acetaminophen (Tylenol 325mg Tab) 650 mg PO Q6H [facility] Last Admin: 04/14/18 16:27 Dose: 650 mg Aspirin (Ecotrin) 81 mg PO DAILY [facility] Last Admin: 04/14/18 10:11 Dose: 81 mg Atenolol (Tenormin) 25 mg PO BID [facility] Last Admin: 04/14/18 17:04 Dose: 25 mg Atorvastatin Calcium (Lipitor) 20 mg PO HS [facility] Last Admin: 04/14/18 21:03 Dose: 20 mg Benzonatate (Tessalon Perles) 100 mg PO TID PRN PRN Reason: Cough Buspirone HCl (Buspar) 5 mg PO BID [facility]; Protocol Last Admin: 04/14/18 17:02 Dose: 5 mg Digoxin (Digoxin) 0.125 mg PO 1400 [facility] Last Admin: 04/14/18 14:38 Dose: 0.125 mg Docusate Sodium (Colace) 100 mg PO BID [facility] Last Admin: 04/14/18 17:03 Dose: Not Given Enoxaparin Sodium (Lovenox) 40 mg SC 0600 [facility]; Protocol Last Admin: 04/14/18 19:35 Dose: 40 mg Famotidine (Pepcid) 40 mg PO HS [facility] Last Admin: 04/14/18 21:03 Dose: 40 mg Fluticasone Propionate (Flonase) 1 actuation NS DAILY [facility] Last Admin: 04/14/18 10:12 Dose: 2 spray Furosemide (Lasix) 40 mg PO DAILY [facility] Last Admin: 04/14/18 10:13 Dose: 40 mg Guaifenesin (Robitussin) 100 mg PO Q4H PRN PRN Reason: Cough Last Admin: 04/14/18 04:27 Dose: 100 mg Linezolid (Zyvox) 600 mg PO BID [facility]; Protocol Last Admin: 04/14/18 17:04 Dose: 600 mg Magnesium Oxide (Mag-Ox) 400 mg PO BID [facility] Last Admin: 04/14/18 17:03 Dose: 400 mg Miconazole Nitrate (Monistat 7 Vaginal Cream) 1 ea VG HS [facility] Last Admin: 04/14/18 21:04 Dose: 1 applic Nystatin (Nystop Topical Powder) 0 gm TOP BID [facility] Last Admin: 04/14/18 17:04 Dose: 1 applic Ondansetron HCl (Zofran Inj) 4 mg IVP Q6H PRN PRN Reason: Nausea/Vomiting Last Admin: 04/14/18 16:29 Dose: 4 mg Oxycodone HCl (Oxycodone Immediate Release Tab) 5 mg PO Q4H PRN PRN Reason: Pain, Mild (1-3) Last Admin: 04/13/18 14:07 Dose: 5 mg Pantoprazole Sodium (Protonix Ec Tab) 40 mg PO 0600 [facility] Last Admin: 04/14/18 05:42 Dose: 40 mg Polyethylene Glycol (Miralax) 17 gm PO DAILY [facility] Last Admin: 04/14/18 10:13 Dose: 17 gm Sennosides (Senokot Tab) 17.2 mg PO HS [facility] Last Admin: 04/14/18 21:01 Dose: Not Given Warfarin Sodium (Coumadin) 4 mg PO 1800 [facility] Last Admin: 04/14/18 17:03 Dose: 4 mg - Labs Labs: 04/13/18 06:30 04/12/18 12:30 PT 14.2 SECONDS (9.4-12.5) H 04/14/18 06:30 INR 1.23 04/14/18 06:30 - Constitutional Appears: No Acute Distress, Chronically Ill - Head Exam Head Exam: NORMAL INSPECTION - Neck Exam Neck Exam: absent: Meningismus - Respiratory Exam Respiratory Exam: Decreased Breath Sounds - Cardiovascular Exam Cardiovascular Exam: +S1, +S2 - GI/Abdominal Exam GI & Abdominal Exam: Soft. 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 Simeon as an outpatient and patient understands will continue to follow clinically
[2018-04-15] MEDS: guaiFENesin 100 mg/5 ml Syrup UD PO PRN ×2 (01:32→06:24)
[2018-04-15] MEDS: Enoxaparin 40 mg Syringe SC SCH ×3 (05:33→07:00)
[2018-04-15] MEDS: Pantoprazole 40 mg EC Tab PO SCH (05:33)
[2018-04-15 06:48] LABS: INR 1.23; PROTHROMBIN TIME 14.2 SECONDS (9.4-12.5)
[2018-04-15] MEDS: Magnesium Oxide 400 mg Tab UD PO SCH ×2 (10:22→18:27)
[2018-04-15] MEDS: POLYETHYLENE GLYCOL 3350 17 GM/Dose PACKET PO SCH (10:22)
[2018-04-15] MEDS: Nystatin 100,000 Units/gm Topical Pow(15 gm) TOP SCH ×2 (10:24→18:27)
[2018-04-15] MEDS: Fluticasone Nasal 50 mcg/Spray NS SCH (10:25)
[2018-04-15] MEDS: oxyCODONE 5 mg Immediate Release Tab PO PRN (12:21)
[2018-04-15] MEDS: Digoxin 125 mcg (0.125 mg) Tab PO SCH (14:08)
[2018-04-15] MEDS ORDERED: Oxycodone/Acetaminophen 5/325 mg Tab PO PRN (16:06)
--- NOTE | 2018-04-15 16:32 | CP.PCM.PN ---
Subjective - Date & Time of Evaluation Date of Evaluation: 04/15/18 Time of Evaluation: 16:32 - Subjective Subjective: Pt awake, alert. States she has pain when she gets up. Afebrile R knee: DUDLEY dressing changed proximal aspect of incision appears clean, dry, no drainage mid incision: small area of skin necrosis; sutures intact area of prior sinus tract appears moist but no drainage distal incision intact and clean cultures 04/08 (prior to explantation and washout) with light growth of VRE DUDLEY reapplied cont PT for gait training- partial weightbearing with knee immobilizer pt will need 6 weeks of antibiotics from the time of explantation (04/08) as per ID discussed plan with patient and daughter, Nina Objective - Vital Signs/Intake and Output Vital Signs (last 24 hours): Temp Pulse Resp BP Pulse Ox 97.3 F L 73 18 140/84 98 04/15/18 10:00 04/15/18 10:23 04/15/18 10:00 04/15/18 10:23 04/15/18 10:00 Intake and Output: 04/15/18 04/15/18 06:59 18:59 Intake Total 360 Output Total 200 Balance 160 - Medications Medications: Current Medications Acetaminophen (Tylenol 325mg Tab) 650 mg PO Q6H [facility] Last Admin: 04/15/18 10:10 Dose: 650 mg Albuterol/Ipratropium (Duoneb 3 Mg/0.5 Mg (3 Ml) Ud) 3 ml IH [id number] [facility] Aspirin (Ecotrin) 81 mg PO DAILY [facility] Last Admin: 04/15/18 10:22 Dose: 81 mg Atenolol (Tenormin) 25 mg PO BID [facility] Last Admin: 04/15/18 10:23 Dose: 25 mg Atorvastatin Calcium (Lipitor) 20 mg PO HS [facility] Last Admin: 04/14/18 21:03 Dose: 20 mg Benzonatate (Tessalon Perles) 100 mg PO TID [facility] Stop: 04/18/18 23:59 Last Admin: 04/15/18 14:08 Dose: Not Given Buspirone HCl (Buspar) 5 mg PO BID [facility]; Protocol Last Admin: 04/15/18 10:25 Dose: 5 mg Digoxin (Digoxin) 0.125 mg PO 1400 [facility] Last Admin: 04/15/18 14:08 Dose: 0.125 mg Docusate Sodium (Colace) 100 mg PO BID [facility] Last Admin: 04/15/18 10:26 Dose: Not Given Enoxaparin Sodium (Lovenox) 70 mg SC Q12H [facility]; Protocol Famotidine (Pepcid) 40 mg PO HS [facility] Last Admin: 04/14/18 21:03 Dose: 40 mg Fluticasone Propionate (Flonase) 1 actuation NS DAILY [facility] Last Admin: 04/15/18 10:25 Dose: 2 spray Furosemide (Lasix) 40 mg PO DAILY [facility] Last Admin: 04/15/18 10:22 Dose: 40 mg Guaifenesin (Robitussin) 100 mg PO Q4H PRN PRN Reason: Cough Last Admin: 04/15/18 06:24 Dose: 100 mg Linezolid (Zyvox) 600 mg PO BID [facility]; Protocol Last Admin: 04/15/18 10:23 Dose: 600 mg Magnesium Oxide (Mag-Ox) 400 mg PO BID [facility] Last Admin: 04/15/18 10:22 Dose: 400 mg Miconazole Nitrate (Monistat 7 Vaginal Cream) 1 ea VG [facility] Last Admin: 04/14/18 21:04 Dose: 1 applic Nystatin (Nystop Topical Powder) 0 gm TOP BID [facility] Last Admin: 04/15/18 10:24 Dose: 2 applic Ondansetron HCl (Zofran Inj) 4 mg IVP Q6H PRN PRN Reason: Nausea/Vomiting Last Admin: 04/14/18 16:29 Dose: 4 mg Oxycodone/Acetaminophen (Percocet 5/325 Mg Tab) 1 tab PO Q6H PRN; Protocol PRN Reason: Pain, moderate (4-7) Stop: 04/18/18 16:07 Pantoprazole Sodium (Protonix Ec Tab) 40 mg PO 0600 [facility] Last Admin: 04/15/18 05:33 Dose: 40 mg Polyethylene Glycol (Miralax) 17 gm PO DAILY [facility] Last Admin: 04/15/18 10:22 Dose: 17 gm Sennosides (Senokot Tab) 17.2 mg PO [facility] Last Admin: 04/14/18 21:01 Dose: Not Given Warfarin Sodium (Coumadin) 4 mg PO 1800 [facility] Last Admin: 04/14/18 17:03 Dose: 4 mg - Labs Labs: 04/13/18 06:30 04/12/18 12:30 PT 14.2 SECONDS (9.4-12.5) H 04/15/18 06:10 INR 1.23 04/15/18 06:10
--- NOTE | 2018-04-15 16:36 | CP.PCM.PN ---
Subjective - Date & Time of Evaluation Date of Evaluation: 04/15/18 Time of Evaluation: 12:40 - Subjective Subjective: No fevers, not in distress, no diarrhea, no nausea, no bleeding, still with pain in the right knee but not as much as before. Objective - Vital Signs/Intake and Output Vital Signs (last 24 hours): Temp Pulse Resp BP Pulse Ox 97.3 F L 73 18 140/84 98 04/15/18 10:00 04/15/18 10:23 04/15/18 10:00 04/15/18 10:23 04/15/18 10:00 Intake and Output: 04/15/18 04/15/18 06:59 18:59 Intake Total 360 Output Total 200 Balance 160 - Medications Medications: Current Medications Acetaminophen (Tylenol 325mg Tab) 650 mg PO Q6H [facility] Last Admin: 04/15/18 10:10 Dose: 650 mg Albuterol/Ipratropium (Duoneb 3 Mg/0.5 Mg (3 Ml) Ud) 3 ml IH [id number] [facility] Aspirin (Ecotrin) 81 mg PO DAILY [facility] Last Admin: 04/15/18 10:22 Dose: 81 mg Atenolol (Tenormin) 25 mg PO BID [facility] Last Admin: 04/15/18 10:23 Dose: 25 mg Atorvastatin Calcium (Lipitor) 20 mg PO HS [facility] Last Admin: 04/14/18 21:03 Dose: 20 mg Benzonatate (Tessalon Perles) 100 mg PO TID [facility] Stop: 04/18/18 23:59 Last Admin: 04/15/18 14:08 Dose: Not Given Buspirone HCl (Buspar) 5 mg PO BID [facility]; Protocol Last Admin: 04/15/18 10:25 Dose: 5 mg Digoxin (Digoxin) 0.125 mg PO 1400 [facility] Last Admin: 04/15/18 14:08 Dose: 0.125 mg Docusate Sodium (Colace) 100 mg PO BID [facility] Last Admin: 04/15/18 10:26 Dose: Not Given Enoxaparin Sodium (Lovenox) 70 mg SC Q12H [facility]; Protocol Famotidine (Pepcid) 40 mg PO HS [facility] Last Admin: 04/14/18 21:03 Dose: 40 mg Fluticasone Propionate (Flonase) 1 actuation NS DAILY [facility] Last Admin: 04/15/18 10:25 Dose: 2 spray Furosemide (Lasix) 40 mg PO DAILY [facility] Last Admin: 04/15/18 10:22 Dose: 40 mg Guaifenesin (Robitussin) 100 mg PO Q4H PRN PRN Reason: Cough Last Admin: 04/15/18 06:24 Dose: 100 mg Linezolid (Zyvox) 600 mg PO BID [facility]; Protocol Last Admin: 04/15/18 10:23 Dose: 600 mg Magnesium Oxide (Mag-Ox) 400 mg PO BID [facility] Last Admin: 04/15/18 10:22 Dose: 400 mg Miconazole Nitrate (Monistat 7 Vaginal Cream) 1 ea VG [facility] Last Admin: 04/14/18 21:04 Dose: 1 applic Nystatin (Nystop Topical Powder) 0 gm TOP BID [facility] Last Admin: 04/15/18 10:24 Dose: 2 applic Ondansetron HCl (Zofran Inj) 4 mg IVP Q6H PRN PRN Reason: Nausea/Vomiting Last Admin: 04/14/18 16:29 Dose: 4 mg Oxycodone/Acetaminophen (Percocet 5/325 Mg Tab) 1 tab PO Q6H PRN; Protocol PRN Reason: Pain, moderate (4-7) Stop: 04/18/18 16:07 Pantoprazole Sodium (Protonix Ec Tab) 40 mg PO 0600 [facility] Last Admin: 04/15/18 05:33 Dose: 40 mg Polyethylene Glycol (Miralax) 17 gm PO DAILY [facility] Last Admin: 04/15/18 10:22 Dose: 17 gm Sennosides (Senokot Tab) 17.2 mg PO [facility] Last Admin: 04/14/18 21:01 Dose: Not Given Warfarin Sodium (Coumadin) 4 mg PO 1800 [facility] Last Admin: 04/14/18 17:03 Dose: 4 mg - Labs Labs: 04/13/18 06:30 04/12/18 12:30 PT 14.2 SECONDS (9.4-12.5) H 04/15/18 06:10 INR 1.23 04/15/18 06:10 - Constitutional Appears: No Acute Distress, Chronically Ill - Head Exam Head Exam: NORMAL INSPECTION - Respiratory Exam Respiratory Exam: Decreased Breath Sounds - Cardiovascular Exam Cardiovascular Exam: +S1, +S2 - GI/Abdominal Exam GI & Abdominal Exam: Soft. 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 Simeon as an outpatient and patient understands will continue to follow clinically discussed this with Dr. Watson
--- NOTE | 2018-04-15 17:56 | PN ---
DATE: 04/15/2018 REASON FOR THE CONSULTATION: Followup continued care in Transitional Care Unit, chronic atrial fibrillation, history of coronary artery disease, status post knee surgery. SUBJECTIVE: Denies any chest pain, shortness of breath or any palpitation. OBJECTIVE: GENERAL: Not in any apparent distress. VITAL SIGNS: Temperature afebrile, heart rate 73, blood pressure 140/84. HEENT: PERRLA. Extraocular muscles intact. NECK: Supple. No carotid bruit. No thyromegaly. CHEST: Clear to auscultation. HEART: S1 and S2 regular. ABDOMEN: Soft. EXTREMITIES: Clubbing and cyanosis negative. LABORATORY DATA: Blood workup as follows; WBC on 04/13/2018 of 7.1, hemoglobin , hematocrit 25.6, platelet count 140. INR 1.23. IMPRESSION: History of chronic atrial fibrillation, history of coronary artery disease, status post percutaneous transluminal coronary angioplasty in the past. Admitted for total knee joint replacement, hematoma, status post explantation of the knee joint. INR subtherapeutic. Started yesterday on subcutaneous Lovenox for deep venous thrombosis prophylaxis. Yesterday, the patient had a duplex scan, no evidence of deep venous thrombosis. RECOMMENDATION: We will increase Lovenox for atrial fibrillation 1 mg/kg every 12 until the INR gets therapeutic for atrial fibrillation and discontinue 40 mg subcu. Gabbi Medrano MD
--- NOTE | 2018-04-15 18:05 | CP.PCM.PCO ---
Physician Communication Note - Physician Communication Note Physician Communication Note: no acute issues, due to high volume of consults will f/u on pt tomorrow
[2018-04-15] MEDS: Enoxaparin 80 mg Syringe SC SCH (18:26)
[2018-04-15] MEDS: Miconazole 2% Vaginal Cream(45 gm) VG SCH (21:09)
[2018-04-15] MEDS: Albuterol-Ipratrop 3 mg / 0.5 (3 ml) UD IH SCH (21:12)
[2018-04-16] MEDS: Enoxaparin 80 mg Syringe SC SCH ×2 (05:47→17:39)
[2018-04-16] MEDS: Pantoprazole 40 mg EC Tab PO SCH (05:48)
--- NOTE | 2018-04-16 06:28 | CP.PCM.PN ---
<Maru Boothe - Last Filed: 04/16/18 10:01> Subjective - Date & Time of Evaluation Date of Evaluation: 04/16/18 Time of Evaluation: 07:00 - Subjective Subjective: Medicine Progress Note for Jose Manuel London PGY3 Patient seen and examined at bedside. There were no acute overnight events as per nursing staff. Patient is resting comfortably in bed. She reports her cough has improved a little. She denies chest pain, shortness of breath, nausea/vomiting/diarrhea, fever/chills, numbness/tingling, dysuria or hematuria. Objective - Vital Signs/Intake and Output Vital Signs (last 24 hours): Temp Pulse Resp BP Pulse Ox 98.4 F 71 18 144/73 97 04/15/18 16:00 04/15/18 18:27 04/15/18 16:00 04/15/18 18:27 04/15/18 16:00 Intake and Output: 04/15/18 04/16/18 18:59 06:59 Intake Total 320 Output Total 250 Balance 70 - Medications Medications: Current Medications Acetaminophen (Tylenol 325mg Tab) 650 mg PO Q6H [facility] Last Admin: 04/16/18 05:48 Dose: Not Given Albuterol/Ipratropium (Duoneb 3 Mg/0.5 Mg (3 Ml) Ud) 3 ml IH [id number] [facility] Last Admin: 04/15/18 21:12 Dose: 3 ml Aspirin (Ecotrin) 81 mg PO DAILY [facility] Last Admin: 04/15/18 10:22 Dose: 81 mg Atenolol (Tenormin) 25 mg PO BID [facility] Last Admin: 04/15/18 18:27 Dose: 25 mg Atorvastatin Calcium (Lipitor) 20 mg PO HS [facility] Last Admin: 04/15/18 21:09 Dose: 20 mg Benzonatate (Tessalon Perles) 100 mg PO TID [facility] Stop: 04/18/18 23:59 Last Admin: 04/15/18 18:27 Dose: 100 mg Buspirone HCl (Buspar) 5 mg PO BID [facility]; Protocol Last Admin: 04/15/18 18:25 Dose: 5 mg Digoxin (Digoxin) 0.125 mg PO 1400 [facility] Last Admin: 04/15/18 14:08 Dose: 0.125 mg Docusate Sodium (Colace) 100 mg PO BID [facility] Last Admin: 04/15/18 18:25 Dose: Not Given Enoxaparin Sodium (Lovenox) 70 mg SC Q12H [facility]; Protocol Last Admin: 04/16/18 05:47 Dose: 70 mg Famotidine (Pepcid) 40 mg PO HS [facility] Last Admin: 04/15/18 21:10 Dose: 40 mg Fluticasone Propionate (Flonase) 1 actuation NS DAILY [facility] Last Admin: 04/15/18 10:25 Dose: 2 spray Furosemide (Lasix) 40 mg PO DAILY [facility] Last Admin: 04/15/18 10:22 Dose: 40 mg Guaifenesin (Robitussin) 100 mg PO Q4H PRN PRN Reason: Cough Last Admin: 04/15/18 06:24 Dose: 100 mg Linezolid (Zyvox) 600 mg PO BID [facility]; Protocol Last Admin: 04/15/18 18:27 Dose: 600 mg Magnesium Oxide (Mag-Ox) 400 mg PO BID [facility] Last Admin: 04/15/18 18:27 Dose: 400 mg Miconazole Nitrate (Monistat 7 Vaginal Cream) 1 ea VG [facility] Last Admin: 04/15/18 21:09 Dose: 1 applic Nystatin (Nystop Topical Powder) 0 gm TOP BID [facility] Last Admin: 04/15/18 18:27 Dose: Not Given Ondansetron HCl (Zofran Inj) 4 mg IVP Q6H PRN PRN Reason: Nausea/Vomiting Last Admin: 04/14/18 16:29 Dose: 4 mg Oxycodone/Acetaminophen (Percocet 5/325 Mg Tab) 1 tab PO Q6H PRN; Protocol PRN Reason: Pain, moderate (4-7) Stop: 04/18/18 16:07 Pantoprazole Sodium (Protonix Ec Tab) 40 mg PO 0600 [facility] Last Admin: 04/16/18 05:48 Dose: 40 mg Polyethylene Glycol (Miralax) 17 gm PO DAILY [facility] Last Admin: 04/15/18 10:22 Dose: 17 gm Sennosides (Senokot Tab) 17.2 mg PO [facility] Last Admin: 04/15/18 21:10 Dose: Not Given Warfarin Sodium (Coumadin) 4 mg PO 1800 [facility] Last Admin: 04/15/18 18:26 Dose: 4 mg - Labs Labs: 04/13/18 06:30 04/12/18 12:30 PT 14.2 SECONDS (9.4-12.5) H 04/15/18 06:10 INR 1.23 04/15/18 06:10 - Constitutional Appears: No Acute Distress - Head Exam Head Exam: ATRAUMATIC, NORMAL INSPECTION, NORMOCEPHALIC - Eye Exam Eye Exam: Normal appearance, PERRL Pupil Exam: NORMAL ACCOMODATION, PERRL - ENT Exam ENT Exam: Mucous Membranes Moist - Respiratory Exam Respiratory Exam: Clear to Ausculation Bilateral, NORMAL BREATHING PATTERN. absent: Rales, Rhonchi, Wheezes - Cardiovascular Exam Cardiovascular Exam: REGULAR RHYTHM, +S1, +S2. absent: Gallop, Rubs, Murmur - GI/Abdominal Exam GI & Abdominal Exam: Soft, Normal Bowel Sounds. absent: Rigid, Tenderness, Mass, Rebound - Extremities Exam Extremities Exam: Normal Capillary Refill, Pedal Edema (on RLE ). absent: Calf Tenderness, Tenderness Additional comments: RLE has dressing in place- clean and dry - Neurological Exam Neurological Exam: Alert, Awake, CN II-XII Intact, Oriented x3 - Psychiatric Exam Psychiatric exam: Normal Affect, Normal Mood - Skin Skin Exam: Dry, Intact, Warm Assessment and Plan - Assessment and Plan (Free Text) Assessment: 1. R knee prosthesis infection - + for VRE - R prosthesis removed and antibiotic space in place POD #5 2. Acute Anemia- stable - secondary to blood loss from surgery - s/p 4U PRBC total 3. Cough - improved 4. A.fib - Coumadin on hold - Rate controlled 5. Cutaneous candidiasis 6. Vaginal candiasis - secondary to antibiotics 7. Essential HTN 8. CAD s/p PCI 9. Hypokalemia Plan: Labs and imaging reviewed. Hgb is stable. CXR was negative for pneumonia. No DVT seen on duplex US. Lasix and Lipitor for CAD. Patient is on Atenolol, Digoxin for a.fib. Digoxin level within normal limits. Patient is on Coumadin. INR is s ubtherapeutic. She is also on Lovenox bridge. Continue Robitussin and Tessalon Perles for cough. Continue Zyvox for VRE as per ID. Buspar as per GI for nausea/vomiting. which has improvd Monistat and Nystatin for fungal infection. Patient is tolerating diet. Pain is controlled. Recommend patient to get out of bed to chair. Continue physical therapy. Case seen, discussed and reviewed with Dr. Christin Boothe PGY3 <Ajay Waller S - Last Filed: 04/22/18 19:59> Objective - Vital Signs/Intake and Output Vital Signs (last 24 hours): Temp Pulse Resp BP Pulse Ox 98.7 F 92 H 20 123/67 97 04/19/18 10:00 04/19/18 10:00 04/19/18 10:00 04/19/18 10:00 04/19/18 10:00 - Labs Labs: 04/19/18 06:23 04/18/18 06:00 PT 22.0 SECONDS (9.4-12.5) H 04/19/18 06:23 INR 1.89 04/19/18 06:23 APTT 36.0 Seconds (25.1-36.5) 04/19/18 06:23 Assessment and Plan - Assessment and Plan (Free Text) Plan: Pt seen and examined. This is a late entry. I have reviewed the note of the medical aide and agree with it. I have discussed the assessment and plan with the resident. I have reviewed the patient's labs and medications. Pt with R knee infection and on IV Abx. Pt is being followed by ID. She will be continued with Coumadin. Follow INR. She will be on Buspar and will be continued. Her nausea has improved. Pt is tolerating her diet.
[2018-04-16 07:03] LABS: INR 1.25; PROTHROMBIN TIME 14.4 SECONDS (9.4-12.5)
[2018-04-16] MEDS: Albuterol-Ipratrop 3 mg / 0.5 (3 ml) UD IH SCH ×2 (07:06→20:50)
[2018-04-16] MEDS: POLYETHYLENE GLYCOL 3350 17 GM/Dose PACKET PO SCH (09:32)
[2018-04-16] MEDS: Nystatin 100,000 Units/gm Topical Pow(15 gm) TOP SCH ×2 (09:33→17:43)
[2018-04-16] MEDS: Fluticasone Nasal 50 mcg/Spray NS SCH (09:43)
[2018-04-16] MEDS: Digoxin 125 mcg (0.125 mg) Tab PO SCH (13:39)
--- NOTE | 2018-04-16 17:24 | CP.PCM.PN ---
Subjective - Date & Time of Evaluation Date of Evaluation: 04/16/18 Time of Evaluation: 10:35 - Subjective Subjective: Still with right knee pain but a little better. No fevers. Objective - Vital Signs/Intake and Output Vital Signs (last 24 hours): Temp Pulse Resp BP Pulse Ox 98.4 F 71 18 144/73 97 04/15/18 16:00 04/15/18 18:27 04/15/18 16:00 04/15/18 18:27 04/15/18 16:00 Intake and Output: 04/16/18 04/16/18 06:59 18:59 Intake Total 320 Output Total 250 Balance 70 - Medications Medications: Current Medications Acetaminophen (Tylenol 325mg Tab) 650 mg PO Q6H [facility] Last Admin: 04/16/18 05:48 Dose: Not Given Albuterol/Ipratropium (Duoneb 3 Mg/0.5 Mg (3 Ml) Ud) 3 ml IH [id number] [facility] Last Admin: 04/16/18 07:06 Dose: 3 ml Aspirin (Ecotrin) 81 mg PO DAILY [facility] Last Admin: 04/15/18 10:22 Dose: 81 mg Atenolol (Tenormin) 25 mg PO BID [facility] Last Admin: 04/15/18 18:27 Dose: 25 mg Atorvastatin Calcium (Lipitor) 20 mg PO [facility] Last Admin: 04/15/18 21:09 Dose: 20 mg Benzonatate (Tessalon Perles) 100 mg PO TID [facility] Stop: 04/18/18 23:59 Last Admin: 04/15/18 18:27 Dose: 100 mg Buspirone HCl (Buspar) 5 mg PO BID [facility]; Protocol Last Admin: 04/15/18 18:25 Dose: 5 mg Digoxin (Digoxin) 0.125 mg PO 1400 [facility] Last Admin: 04/15/18 14:08 Dose: 0.125 mg Docusate Sodium (Colace) 100 mg PO BID [facility] Last Admin: 04/15/18 18:25 Dose: Not Given Enoxaparin Sodium (Lovenox) 70 mg SC Q12H [facility]; Protocol Last Admin: 04/16/18 05:47 Dose: 70 mg Famotidine (Pepcid) 40 mg PO HS [facility] Last Admin: 04/15/18 21:10 Dose: 40 mg Fluticasone Propionate (Flonase) 1 actuation NS DAILY [facility] Last Admin: 04/15/18 10:25 Dose: 2 spray Furosemide (Lasix) 40 mg PO DAILY [facility] Last Admin: 04/15/18 10:22 Dose: 40 mg Guaifenesin (Robitussin) 100 mg PO Q4H PRN PRN Reason: Cough Last Admin: 04/15/18 06:24 Dose: 100 mg Linezolid (Zyvox) 600 mg PO BID [facility]; Protocol Last Admin: 04/15/18 18:27 Dose: 600 mg Magnesium Oxide (Mag-Ox) 400 mg PO BID [facility] Last Admin: 04/15/18 18:27 Dose: 400 mg Miconazole Nitrate (Monistat 7 Vaginal Cream) 1 ea VG [facility] Last Admin: 04/15/18 21:09 Dose: 1 applic Nystatin (Nystop Topical Powder) 0 gm TOP BID [facility] Last Admin: 04/15/18 18:27 Dose: Not Given Ondansetron HCl (Zofran Inj) 4 mg IVP Q6H PRN PRN Reason: Nausea/Vomiting Last Admin: 04/14/18 16:29 Dose: 4 mg Oxycodone/Acetaminophen (Percocet 5/325 Mg Tab) 1 tab PO Q6H PRN; Protocol PRN Reason: Pain, moderate (4-7) Stop: 04/18/18 16:07 Pantoprazole Sodium (Protonix Ec Tab) 40 mg PO 0600 [facility] Last Admin: 04/16/18 05:48 Dose: 40 mg Polyethylene Glycol (Miralax) 17 gm PO DAILY [facility] Last Admin: 04/15/18 10:22 Dose: 17 gm Sennosides (Senokot Tab) 17.2 mg PO [facility] Last Admin: 04/15/18 21:10 Dose: Not Given Warfarin Sodium (Coumadin) 4 mg PO 1800 [facility] Last Admin: 04/15/18 18:26 Dose: 4 mg - Labs Labs: 04/13/18 06:30 04/12/18 12:30 PT 14.4 SECONDS (9.4-12.5) H 04/16/18 06:45 INR 1.25 04/16/18 06:45 - Constitutional Appears: No Acute Distress, Chronically Ill - Head Exam Head Exam: NORMAL INSPECTION - Respiratory Exam Respiratory Exam: Decreased Breath Sounds - Cardiovascular Exam Cardiovascular Exam: +S1, +S2 - GI/Abdominal Exam GI & Abdominal Exam: Soft. 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 Simeon as an outpatient and patient understands will continue to follow clinically discussed this with Dr. Watson previously
--- NOTE | 2018-04-16 20:57 | PN ---
DATE: 04/16/2018 SUBJECTIVE: The patient was seen today. The patient reported that she is able to tolerate food. There is no agitation. There is no vomiting. There is no self-induced vomiting. There is no nausea. No vomiting. The patient presented to be more alert, but the patient refused to participate in this senior technical writer's assessment. The patient denied that she feels depressed. Denied any feeling of hopelessness or helplessness. It was observed working with physical therapy. Vital signs seems to be stable. Medications reviewed. This senior technical writer is not sure why BuSpar was started for the patient, but probably for anxiety. This senior technical writer would not recommend that medication to be continued. MENTAL STATUS EXAMINATION: As this senior technical writer described above, the patient appears to be more alert, mildly irritable and annoyed by this senior technical writer's questions. Mood described "I feel fine." Affect was constricted. Thought process coherent and goal directed. Thought content, the patient denied visual, auditory, tactile hallucinations. Denied paranoid ideation. The patient denied thoughts of harming herself or others. Denied intent or plan. Insight and judgment seems to be improving. Impulses are well controlled. IMPRESSION: Rule out mood disorder due to general medical condition. PLAN: This senior technical writer would not recommend BuSpar. At this point, the patient is doing well. The patient does not have any self-induced vomiting any longer. The patient denied that she is nauseated or has any problems with digesting food. The patient refused to participate in any further assessment. We will respect that request. The patient pose no imminent danger to self or others. This senior technical writer will sign off. Should you have any questions, give me a call back. Ashely Klein MD
[2018-04-16] MEDS: Miconazole 2% Vaginal Cream(45 gm) VG SCH (22:33)
--- NOTE | 2018-04-16 23:05 | PN ---
DATE: 04/16/2018 REASON FOR THE CONSULTATION AND FOLLOWUP: Continuity of care in Transitional Care Unit, chronic atrial fibrillation, history of coronary artery disease, status post knee surgery. SUBJECTIVE: Patient denies any chest pain, shortness of breath, or any palpitation. OBJECTIVE: GENERAL: Not in apparent distress. VITAL SIGNS: Temperature afebrile, heart rate 71, blood pressure 136/64 HEENT: PERRLA, extraocular muscle intact. NECK: Supple. No carotid bruit or thyromegaly. CHEST: Clear to auscultation. HEART: S1 and S2, regular. ABDOMEN: Soft. EXTREMITIES: Clubbing and cyanosis negative. LABORATORY DATA: WBC 7.1, hemoglobin 8.6, hematocrit 25.6, platelet count 140. Chemistry, 134 as of 04/12/2018. BUN 14, creatinine 0.6. INR today is 1.25. IMPRESSION: Chronic atrial fibrillation, status post knee surgery, status post knee explantation, status post hematoma, history of atrial fibrillation. RECOMMENDATIONS: Since INR is still subtherapeutic, started yesterday Lovenox therapeutic dose 1 mg/kg subcutaneous every 12 hours for atrial fibrillation that covers also the DVT prophylaxis as well . Continue Lovenox still the INR get therapeutic. Follow up PT, INR in the morning. Thank you Dr. Watson, for providing us the opportunity in taking care of patient, Norma Segura. Gabbi Medrano MD
[2018-04-17] MEDS: guaiFENesin 100 mg/5 ml Syrup UD PO PRN (01:26)
[2018-04-17] MEDS: Enoxaparin 80 mg Syringe SC SCH ×2 (05:14→17:21)
[2018-04-17] MEDS: Pantoprazole 40 mg EC Tab PO SCH (05:14)
[2018-04-17] MEDS: Albuterol-Ipratrop 3 mg / 0.5 (3 ml) UD IH SCH ×2 (07:14→20:18)
[2018-04-17 07:31] LABS: HEMOGLOBIN 7.7 g/dL (12.0-16.0); MEAN CELL VOLUME 86.1 fl (80.0-105.0); MEAN CORPUSCULAR HEMOGLOBIN 28.2 pg (25.0-35.0); MEAN CORPUSCULAR HGB CONC 32.8 g/dl (31.0-37.0); MEAN PLATELET VOLUME 9.5 fl (7.0-11.0); RBC 2.73 10^6/uL (3.5-6.1); RED CELL DISTRIBUTION WIDTH 15.8 % (11.5-14.5); WHITE BLOOD COUNT 5.1 10^3/ul (4.5-11.0)
[2018-04-17 07:37] LABS: INR 1.38
[2018-04-17 07:54] LABS: ALBUMIN 2.7 g/dL (3.0-4.8); ALT/SGPT 33 U/L (7-56); AST/SGOT 24 U/L (14-36); BLOOD UREA NITROGEN 16 mg/dL (7-21); CALCIUM 7.9 mg/dL (8.4-10.5); GFR NON-AFRICAN AMERICAN > 60
[2018-04-17 08:45] LABS: BASO # 0.01 K/mm3 (0.0-2.0); BASO % 0.2 % (0.0-3.0); EOS # 0.1 (0.0-0.7); EOS % 2.5 % (1.5-5.0); GRAN # 3.48 (1.4-6.5); GRAN % 67.6 % (50.0-68.0); LYMPH # 1.4 (1.2-3.4); LYMPH % 26.2 % (22.0-35.0); MONO # 0.2 (0.1-0.6); MONO % 3.5 % (1.0-6.0)
--- NOTE | 2018-04-17 08:45 | PN ---
DATE: 04/16/2018 SUBJECTIVE: The patient is lying in bed. The patient is feeling much better. She denies any further dry heaves, regurgitation or nausea or vomiting. Her appetite appears improved. Chest x-ray is negative for pneumonia. PHYSICAL EXAMINATION: VITAL SIGNS: Reveal temperature of 98.4, blood pressure 120/64, heart rate of 67. HEENT: Reveal sclerae to be white. Conjunctivae pink. NECK: Supple. CHEST: Reveal lungs to be clear. HEART: Reveals regular rate and rhythm. ABDOMEN: Soft, nontender. EXTREMITIES: Show her no edema. LABORATORY DATA: No new laboratory data are present. IMPRESSION: This is an 82-year-old female with intermittent dry heaves, reflux and poor appetite over several weeks. Her dry heaves have appeared to have improved with buspirone 5 mg twice a day. Her appetite also has improved. RECOMMENDATIONS: 1. Continue PPI. 2. Continue Ensure pudding. 3. Swallowing evaluation was negative for oropharyngeal dysphagia. Emile Power MD
[2018-04-17 10:10] LABS: BASO # 0.01 K/mm3 (0.0-2.0); BASO % 0.2 % (0.0-3.0); EOS # 0.1 (0.0-0.7); EOS % 2.1 % (1.5-5.0); GRAN # 4.74 (1.4-6.5); HEMOGLOBIN 7.9 g/dL (12.0-16.0); LYMPH # 1.1 (1.2-3.4); LYMPH % 17.1 % (22.0-35.0); MEAN CELL VOLUME 85.7 fl (80.0-105.0); MEAN CORPUSCULAR HEMOGLOBIN 28.2 pg (25.0-35.0); MEAN CORPUSCULAR HGB CONC 32.9 g/dl (31.0-37.0); MEAN PLATELET VOLUME 9.1 fl (7.0-11.0); MONO # 0.2 (0.1-0.6); MONO % 3.6 % (1.0-6.0); RBC 2.8 10^6/uL (3.5-6.1); RED CELL DISTRIBUTION WIDTH 15.7 % (11.5-14.5); WHITE BLOOD COUNT 6.2 10^3/ul (4.5-11.0)
[2018-04-17] MEDS: Fluticasone Nasal 50 mcg/Spray NS SCH (10:16)
[2018-04-17] MEDS: Nystatin 100,000 Units/gm Topical Pow(15 gm) TOP SCH ×2 (10:17→17:21)
[2018-04-17] MEDS: POLYETHYLENE GLYCOL 3350 17 GM/Dose PACKET PO SCH (10:17)
[2018-04-17] MEDS ORDERED: Potassium Chloride 20 mEq ER Tab PO ONE (13:44)
[2018-04-17] MEDS: Digoxin 125 mcg (0.125 mg) Tab PO SCH (14:52)
--- NOTE | 2018-04-17 17:45 | CP.PCM.PN ---
Subjective - Date & Time of Evaluation Date of Evaluation: 04/17/18 Time of Evaluation: 11:45 - Subjective Subjective: REsting in bed, not in distress. Objective - Vital Signs/Intake and Output Vital Signs (last 24 hours): Temp Pulse Resp BP Pulse Ox 98.2 F 71 18 136/64 98 04/16/18 10:00 04/16/18 17:40 04/16/18 10:00 04/16/18 17:40 04/16/18 10:00 Intake and Output: 04/17/18 04/17/18 06:59 18:59 Intake Total 260 Output Total 350 Balance -90 - Medications Medications: Current Medications Acetaminophen (Tylenol 325mg Tab) 650 mg PO Q6H [facility] Last Admin: 04/16/18 22:35 Dose: Not Given Albuterol/Ipratropium (Duoneb 3 Mg/0.5 Mg (3 Ml) Ud) 3 ml IH [id number] [facility] Last Admin: 04/17/18 07:14 Dose: 3 ml Aspirin (Ecotrin) 81 mg PO DAILY [facility] Last Admin: 04/16/18 09:32 Dose: 81 mg Atenolol (Tenormin) 25 mg PO BID [facility] Last Admin: 04/16/18 17:40 Dose: 25 mg Atorvastatin Calcium (Lipitor) 20 mg PO HS [facility] Last Admin: 04/16/18 22:33 Dose: 20 mg Benzonatate (Tessalon Perles) 100 mg PO TID [facility] Stop: 04/18/18 23:59 Last Admin: 04/16/18 17:40 Dose: 100 mg Buspirone HCl (Buspar) 5 mg PO BID [facility]; Protocol Last Admin: 04/16/18 17:38 Dose: 5 mg Digoxin (Digoxin) 0.125 mg PO 1400 [facility] Last Admin: 04/16/18 13:39 Dose: 0.125 mg Docusate Sodium (Colace) 100 mg PO BID [facility] Last Admin: 04/16/18 17:39 Dose: Not Given Enoxaparin Sodium (Lovenox) 70 mg SC Q12H [facility]; Protocol Last Admin: 04/17/18 05:14 Dose: 70 mg Famotidine (Pepcid) 40 mg PO HS [facility] Last Admin: 04/16/18 22:33 Dose: 40 mg Fluticasone Propionate (Flonase) 1 actuation NS DAILY [facility] Last Admin: 04/16/18 09:43 Dose: Not Given Furosemide (Lasix) 40 mg PO DAILY [facility] Last Admin: 04/16/18 09:32 Dose: 40 mg Guaifenesin (Robitussin) 100 mg PO Q4H PRN PRN Reason: Cough Last Admin: 04/17/18 01:26 Dose: 100 mg Linezolid (Zyvox) 600 mg PO BID [facility]; Protocol Last Admin: 04/16/18 17:38 Dose: 600 mg Miconazole Nitrate (Monistat 7 Vaginal Cream) 1 ea VG [facility] Last Admin: 04/16/18 22:33 Dose: 1 applic Nystatin (Nystop Topical Powder) 0 gm TOP BID [facility] Last Admin: 04/16/18 17:43 Dose: 1 applic Ondansetron HCl (Zofran Inj) 4 mg IVP Q6H PRN PRN Reason: Nausea/Vomiting Last Admin: 04/14/18 16:29 Dose: 4 mg Oxycodone/Acetaminophen (Percocet 5/325 Mg Tab) 1 tab PO Q6H PRN; Protocol PRN Reason: Pain, moderate (4-7) Stop: 04/18/18 16:07 Last Admin: 04/16/18 09:37 Dose: 1 tab Pantoprazole Sodium (Protonix Ec Tab) 40 mg PO 0600 [facility] Last Admin: 04/17/18 05:14 Dose: 40 mg Polyethylene Glycol (Miralax) 17 gm PO DAILY [facility] Last Admin: 04/16/18 09:32 Dose: 17 gm Sennosides (Senokot Tab) 17.2 mg PO [facility] Last Admin: 04/16/18 22:34 Dose: Not Given Warfarin Sodium (Coumadin) 4 mg PO 1800 [facility] Last Admin: 04/16/18 17:39 Dose: 4 mg - Labs Labs: 04/13/18 06:30 04/12/18 12:30 PT 14.4 SECONDS (9.4-12.5) H 04/16/18 06:45 INR 1.25 04/16/18 06:45 - Constitutional Appears: No Acute Distress, Chronically Ill - Head Exam Head Exam: NORMAL INSPECTION - Respiratory Exam Respiratory Exam: Decreased Breath Sounds - Cardiovascular Exam Cardiovascular Exam: +S1, +S2 - GI/Abdominal Exam GI & Abdominal Exam: Soft. 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 Simeon as an outpatient and patient understands will continue to follow clinically discussed this with Dr. Watson previously
--- NOTE | 2018-04-17 19:20 | PN ---
DATE: 04/17/2018 REASON FOR CONSULTATION AND FOLLOWUP: Continuity of care in the transitional care unit, chronic atrial fibrillation, history of coronary artery disease, status post knee surgery. SUBJECTIVE: Patient feels weak, otherwise okay. OBJECTIVE: GENERAL: Not in apparent distress. VITAL SIGNS: Temperature afebrile. Heart rate 71, and blood pressure 131/72. HEENT: PERRLA. Intact. NECK: Supple. No carotid bruits or thyromegaly. CHEST: Clear to auscultation. HEART: S1 and S2, regular. ABDOMEN: Soft. EXTREMITIES: Clubbing and cyanosis negative. LABORATORY DATA: Blood workup as follows: WBC 6.8, hemoglobin 7.9, hematocrit 24, and platelet count 125. Chemistry shows sodium 130, potassium 3.7, chloride 96, carbon dioxide 32, anion gap of 10. BUN 16, creatinine 0.6. Total protein 5. Albumin 2.7. Repeat hemoglobin 7.9, yesterday was 8.6, this morning was 7.7. IMPRESSION: Anemia, repeat hemoglobin 7.9, this morning 7.7, yesterday with 8.6, dropping hemoglobin and hematocrit gradually. Chronic atrial fibrillation; history of coronary artery disease, status post PTCA in the remote past; history of right knee surgery, status post explanted knee. RECOMMENDATIONS: Today, INR is still subtherapeutic at 1.38, started Lovenox. Continue Coumadin. Continue Lovenox until the INR gets therapeutic. Transfuse 1 unit of packed RBC and 40 of Lasix after transfusion. give 40 of K-Dur now and Lasix 40 at 5 p.m. post transfusion. We will repeat CBC in the morning and SMA-7 and PT/INR. I discussed with patient, discussed with patient's daughter. We will follow with you. Thank you Dr. Waller/Dr. Watson for providing the opportunity in taking care of patient, Norma Segura. Gabbi Medrano MD
[2018-04-17] MEDS: Miconazole 2% Vaginal Cream(45 gm) VG SCH (21:11)
[2018-04-18] MEDS: Enoxaparin 80 mg Syringe SC SCH ×2 (05:38→17:35)
[2018-04-18] MEDS: Pantoprazole 40 mg EC Tab PO SCH (05:39)
[2018-04-18] MEDS: guaiFENesin 100 mg/5 ml Syrup UD PO PRN ×2 (05:39→15:15)
--- NOTE | 2018-04-18 06:24 | CP.PCM.PN ---
<Maru Boothe - Last Filed: 04/18/18 09:16> Subjective - Date & Time of Evaluation Date of Evaluation: 04/18/18 Time of Evaluation: 07:00 - Subjective Subjective: Medicine Progress Note for Jose Manuel London PGY3 Patient seen and examined at bedside. I spoke with nursing staff and there were no acute overnight events. Patient is resting comfortably in bed. She denies chest pain, shortness of breath, nausea/vomiting/diarrhea, fever/chills, numbness/tingling, dysuria or hematuria. Objective - Vital Signs/Intake and Output Vital Signs (last 24 hours): Temp Pulse Resp BP Pulse Ox 98.6 F 72 18 135/94 H 96 04/17/18 16:00 04/17/18 16:00 04/17/18 16:00 04/17/18 17:22 04/17/18 16:00 - Medications Medications: Current Medications Acetaminophen (Tylenol 325mg Tab) 650 mg PO Q6H [facility] Last Admin: 04/18/18 05:39 Dose: Not Given Albuterol/Ipratropium (Duoneb 3 Mg/0.5 Mg (3 Ml) Ud) 3 ml IH [id number] [facility] Last Admin: 04/17/18 20:18 Dose: 3 ml Aspirin (Ecotrin) 81 mg PO DAILY [facility] Last Admin: 04/17/18 10:16 Dose: 81 mg Atenolol (Tenormin) 25 mg PO BID [facility] Last Admin: 04/17/18 17:22 Dose: 25 mg Atorvastatin Calcium (Lipitor) 20 mg PO HS [facility] Last Admin: 04/17/18 21:11 Dose: 20 mg Benzonatate (Tessalon Perles) 100 mg PO TID [facility] Stop: 04/18/18 23:59 Last Admin: 04/17/18 17:22 Dose: 100 mg Digoxin (Digoxin) 0.125 mg PO 1400 [facility] Last Admin: 04/17/18 14:52 Dose: 0.125 mg Docusate Sodium (Colace) 100 mg PO BID [facility] Last Admin: 04/17/18 17:20 Dose: Not Given Enoxaparin Sodium (Lovenox) 70 mg SC Q12H [facility]; Protocol Last Admin: 04/18/18 05:38 Dose: 70 mg Famotidine (Pepcid) 40 mg PO HS [facility] Last Admin: 04/17/18 21:11 Dose: 40 mg Fluticasone Propionate (Flonase) 1 actuation NS DAILY [facility] Last Admin: 04/17/18 10:16 Dose: 1 spray Furosemide (Lasix) 40 mg PO DAILY [facility] Last Admin: 04/17/18 10:16 Dose: 40 mg Guaifenesin (Robitussin) 100 mg PO Q4H PRN PRN Reason: Cough Last Admin: 04/18/18 05:39 Dose: 100 mg Linezolid (Zyvox) 600 mg PO BID [facility]; Protocol Last Admin: 04/17/18 17:23 Dose: 600 mg Miconazole Nitrate (Monistat 7 Vaginal Cream) 1 ea VG HS [facility] Last Admin: 04/17/18 21:11 Dose: 1 applic Nystatin (Nystop Topical Powder) 0 gm TOP BID [facility] Last Admin: 04/17/18 17:21 Dose: 1 applic Ondansetron HCl (Zofran Inj) 4 mg IVP Q6H PRN PRN Reason: Nausea/Vomiting Last Admin: 04/14/18 16:29 Dose: 4 mg Oxycodone/Acetaminophen (Percocet 5/325 Mg Tab) 1 tab PO Q6H PRN; Protocol PRN Reason: Pain, moderate (4-7) Stop: 04/18/18 16:07 Last Admin: 04/16/18 09:37 Dose: 1 tab Pantoprazole Sodium (Protonix Ec Tab) 40 mg PO 0600 [facility] Last Admin: 04/18/18 05:39 Dose: 40 mg Polyethylene Glycol (Miralax) 17 gm PO DAILY [facility] Last Admin: 04/17/18 10:17 Dose: 17 gm Sennosides (Senokot Tab) 17.2 mg PO HS [facility] Last Admin: 04/17/18 21:11 Dose: Not Given Warfarin Sodium (Coumadin) 4 mg PO 1800 [facility] Last Admin: 04/17/18 17:20 Dose: 4 mg - Labs Labs: 04/17/18 09:17 04/17/18 07:20 PT 16.0 SECONDS (9.4-12.5) H 04/17/18 07:20 INR 1.38 04/17/18 07:20 - Constitutional Appears: No Acute Distress - Head Exam Head Exam: ATRAUMATIC, NORMAL INSPECTION, NORMOCEPHALIC - Eye Exam Eye Exam: EOMI, Normal appearance, PERRL Pupil Exam: NORMAL ACCOMODATION, PERRL - ENT Exam ENT Exam: Mucous Membranes Moist, Normal Exam - Neck Exam Neck Exam: Full ROM, Normal Inspection. absent: Tenderness - Respiratory Exam Respiratory Exam: Clear to Ausculation Bilateral, NORMAL BREATHING PATTERN. absent: Rales, Rhonchi, Wheezes - Cardiovascular Exam Cardiovascular Exam: REGULAR RHYTHM, +S1, +S2, Murmur. absent: Tachycardia, Gallop, Rubs - GI/Abdominal Exam GI & Abdominal Exam: Soft, Normal Bowel Sounds. absent: Guarding, Rigid, Tenderness, Organomegaly, Rebound - Extremities Exam Extremities Exam: Normal Capillary Refill. absent: Tenderness Additional comments: RLE has dressing in place- clean and dry - no blood from drain observed - Neurological Exam Neurological Exam: Alert, Awake, CN II-XII Intact, Oriented x3 - Psychiatric Exam Psychiatric exam: Normal Affect, Normal Mood - Skin Skin Exam: Dry, Intact, Normal Color, Warm Assessment and Plan - Assessment and Plan (Free Text) Assessment: 1. R knee prosthesis infection - + for VRE - R prosthesis removed and antibiotic space in place POD #7 2. Acute Iron deficiency Anemia - secondary to blood loss from surgery - s/p 4U PRBC total 3. Cough - improved 4. A.fib - Rate controlled - On Coumadin with Lovenox bridge 5. Cutaneous candidiasis 6. Vaginal candiasis - secondary to antibiotics 7. Essential HTN 8. CAD s/p PCI 9. Hyponatremia 10. Thrombocytopenia- mild - secondary to Zyvox. Plan: Labs and imaging reviewed. Hgb dropped <8. Hemoccult was negative. There are no overt signs of bleeding. I spoke with GI, Dr. Power as well as cardiology. Will transfuse patient 1U PRBC and will give one dose of Lasix after. Will continue to monitor Hgb and platelets. Continue Atenolol and Digoxin for A.fib. Will continue Coumadin with Lovenox bridge for a.fib and monitor INR. Lasix and Lipitor will be continue for CAD. Continue Zyvox for VRE as per ID. Monistat and Nystatin for fungal infection. Buspar added per GI for nausea/vomiting which has resolved. Patient is tolerating diet with ensure supplementation. Pain is controlled. Patient encouraged to do more physical therapy. Patient will be d/c to [facility] tomorrow. Case seen, discussed and reviewed with Dr. Christin Boothe PGY3 <Ajay Waller S - Last Filed: 04/22/18 19:40> Objective - Vital Signs/Intake and Output Vital Signs (last 24 hours): Temp Pulse Resp BP Pulse Ox 98.7 F 92 H 20 123/67 97 04/19/18 10:00 04/19/18 10:00 04/19/18 10:00 04/19/18 10:00 04/19/18 10:00 - Labs Labs: 04/19/18 06:23 04/18/18 06:00 PT 22.0 SECONDS (9.4-12.5) H 04/19/18 06:23 INR 1.89 04/19/18 06:23 APTT 36.0 Seconds (25.1-36.5) 04/19/18 06:23 Assessment and Plan - Assessment and Plan (Free Text) Plan: Pt seen and examined. This is a late entry. I have reviewed the note of the medical detailist and agree with it. I have discussed the assessment and plan with the resident. I have reviewed the patient's labs and medications. Pt with anemia from infection of the R knee and blood loss from going to the OR. Pt is on Zyvox for infection. She will need 6 total weeks of Abx. She is on Coumadin. I spoke to her daughter, Marii about the issues and to update her.
[2018-04-18 06:25] LABS: INR 1.6; PROTHROMBIN TIME 18.6 SECONDS (9.4-12.5)
[2018-04-18 06:37] LABS: BASO # 0.01 K/mm3 (0.0-2.0); BASO % 0.2 % (0.0-3.0); EOS # 0.2 (0.0-0.7); EOS % 2.5 % (1.5-5.0); GRAN # 4.84 (1.4-6.5); GRAN % 76.3 % (50.0-68.0); HEMOGLOBIN 7.9 g/dL (12.0-16.0); LYMPH # 1.2 (1.2-3.4); LYMPH % 18.6 % (22.0-35.0); MEAN CORPUSCULAR HEMOGLOBIN 28.3 pg (25.0-35.0); MEAN CORPUSCULAR HGB CONC 32.9 g/dl (31.0-37.0); MONO # 0.2 (0.1-0.6); MONO % 2.4 % (1.0-6.0); RBC 2.79 10^6/uL (3.5-6.1); RED CELL DISTRIBUTION WIDTH 15.8 % (11.5-14.5); WHITE BLOOD COUNT 6.3 10^3/ul (4.5-11.0)
[2018-04-18 06:41] LABS: BLOOD UREA NITROGEN 18 mg/dL (7-21); GFR NON-AFRICAN AMERICAN > 60
--- NOTE | 2018-04-18 10:18 | CP.PCM.PN ---
Subjective - Date & Time of Evaluation Date of Evaluation: 04/18/18 Time of Evaluation: 10:12 - Subjective Subjective: Patient seen and examined. Patient denies CP/SOB. Going to receive one unit of PRBC's afebrile R knee: dressings changed. Proximal incision developing small area of skin necrosis. Sutures intact. Mid incision area of skin necrosis with suture intact, but appears dry. Distal incision site moist with no active drainage. New DUDLEY applied. Thigh and calf soft and non-tender. Cont PT with PWB with knee immobilizer for gait training Discharge to [facility] tomorrow Cont PO Zyvox Will see patient in Dr. Watson's office next Discussed above with Dr. Watson, agrees with above. Objective - Vital Signs/Intake and Output Vital Signs (last 24 hours): Temp Pulse Resp BP Pulse Ox 98.6 F 72 18 135/94 H 96 04/17/18 16:00 04/17/18 16:00 04/17/18 16:00 04/17/18 17:22 04/17/18 16:00 - Medications Medications: Current Medications Acetaminophen (Tylenol 325mg Tab) 650 mg PO Q6H [facility] Last Admin: 04/18/18 05:39 Dose: Not Given Albuterol/Ipratropium (Duoneb 3 Mg/0.5 Mg (3 Ml) Ud) 3 ml IH [id number] [facility] Last Admin: 04/17/18 20:18 Dose: 3 ml Aspirin (Ecotrin) 81 mg PO DAILY [facility] Last Admin: 04/17/18 10:16 Dose: 81 mg Atenolol (Tenormin) 25 mg PO BID [facility] Last Admin: 04/17/18 17:22 Dose: 25 mg Atorvastatin Calcium (Lipitor) 20 mg PO HS [facility] Last Admin: 04/17/18 21:11 Dose: 20 mg Benzonatate (Tessalon Perles) 100 mg PO TID [facility] Stop: 04/18/18 23:59 Last Admin: 04/17/18 17:22 Dose: 100 mg Digoxin (Digoxin) 0.125 mg PO 1400 [facility] Last Admin: 04/17/18 14:52 Dose: 0.125 mg Docusate Sodium (Colace) 100 mg PO BID [facility] Last Admin: 04/17/18 17:20 Dose: Not Given Enoxaparin Sodium (Lovenox) 70 mg SC Q12H [facility]; Protocol Last Admin: 04/18/18 05:38 Dose: 70 mg Famotidine (Pepcid) 40 mg PO HS [facility] Last Admin: 04/17/18 21:11 Dose: 40 mg Fluticasone Propionate (Flonase) 1 actuation NS DAILY [facility] Last Admin: 04/17/18 10:16 Dose: 1 spray Furosemide (Lasix) 40 mg PO DAILY [facility] Last Admin: 04/17/18 10:16 Dose: 40 mg Guaifenesin (Robitussin) 100 mg PO Q4H PRN PRN Reason: Cough Last Admin: 04/18/18 05:39 Dose: 100 mg Linezolid (Zyvox) 600 mg PO BID [facility]; Protocol Last Admin: 04/17/18 17:23 Dose: 600 mg Miconazole Nitrate (Monistat 7 Vaginal Cream) 1 ea VG HS [facility] Last Admin: 04/17/18 21:11 Dose: 1 applic Nystatin (Nystop Topical Powder) 0 gm TOP BID [facility] Last Admin: 04/17/18 17:21 Dose: 1 applic Ondansetron HCl (Zofran Inj) 4 mg IVP Q6H PRN PRN Reason: Nausea/Vomiting Last Admin: 04/14/18 16:29 Dose: 4 mg Oxycodone/Acetaminophen (Percocet 5/325 Mg Tab) 1 tab PO Q6H PRN; Protocol PRN Reason: Pain, moderate (4-7) Stop: 04/18/18 16:07 Last Admin: 04/16/18 09:37 Dose: 1 tab Pantoprazole Sodium (Protonix Ec Tab) 40 mg PO 0600 [facility] Last Admin: 04/18/18 05:39 Dose: 40 mg Polyethylene Glycol (Miralax) 17 gm PO DAILY [facility] Last Admin: 04/17/18 10:17 Dose: 17 gm Sennosides (Senokot Tab) 17.2 mg PO HS [facility] Last Admin: 04/17/18 21:11 Dose: Not Given Warfarin Sodium (Coumadin) 4 mg PO 1800 [facility] Last Admin: 04/17/18 17:20 Dose: 4 mg - Labs Labs: 04/18/18 06:00 04/18/18 06:00 PT 18.6 SECONDS (9.4-12.5) H 04/18/18 06:00 INR 1.60 04/18/18 06:00
[2018-04-18] MEDS: Fluticasone Nasal 50 mcg/Spray NS SCH (10:20)
[2018-04-18] MEDS: Nystatin 100,000 Units/gm Topical Pow(15 gm) TOP SCH ×2 (10:21→17:36)
[2018-04-18] MEDS: POLYETHYLENE GLYCOL 3350 17 GM/Dose PACKET PO SCH (10:21)
[2018-04-18] MEDS: Digoxin 125 mcg (0.125 mg) Tab PO SCH (15:15)
[2018-04-18 15:18] VITALS: PULSE 78
[2018-04-18] MEDS: Albuterol-Ipratrop 3 mg / 0.5 (3 ml) UD IH SCH (20:22)
--- NOTE | 2018-04-18 20:55 | PN ---
DATE: 04/18/2018 REASON FOR THE CONSULTATION: Continuity of care in the transitional care unit, chronic atrial fibrillation, history of coronary artery disease, status post knee surgery. SUBJECTIVE: The patient denies any chest pain, shortness of breath. Complaining of mild bleeding on blowing the nose, very mild, only the tissue will get tinged. PHYSICAL EXAMINATION: VITAL SIGNS: Temperature afebrile, heart rate is 80, blood pressure 123/63. HEENT: PERRLA. Extraocular muscles intact. NECK: Supple. No carotid bruit. No thyromegaly. CHEST: Clear to auscultation. HEART: S1 and S2 regular. ABDOMEN: Soft. EXTREMITIES: Clubbing and cyanosis negative. LABORATORY DATA: WBC 6.2, hemoglobin 7.9, hematocrit 24, and platelet count 9 . Coagulation INR 1.6. Chemistry shows sodium 130, potassium 3.9, chloride 96, carbon dioxide 31, anion gap of 10. BUN 16, creatinine 0.6. IMPRESSION: This is an 82-year-old female with past medical history significant for chronic atrial fibrillation, history of coronary artery disease, status post percutaneous transluminal coronary angioplasty, admitted with knee surgery, status post hematoma, status post explantation of the knee, now patient is in transitional care unit, history of percutaneous transluminal coronary angioplasty in the past remote. RECOMMENDATION: Continue anticoagulation. Goal is to keep INR between 2 to 2.5. Hemoglobin is low. We will suggest to administer blood and monitor PT/INR. Continue gentle diuretics. We will discontinue enoxaparin after tomorrow's dose. Continue Coumadin. Thank you, Dr. Waller, for providing us the opportunity in taking care of the patient, Imelda Green. Gabbi Medrano MD
[2018-04-18] MEDS: Miconazole 2% Vaginal Cream(45 gm) VG SCH (21:35)
--- NOTE | 2018-04-18 23:53 | CP.PCM.PN ---
Subjective - Date & Time of Evaluation Date of Evaluation: 04/18/18 Time of Evaluation: 09:30 - Subjective Subjective: No fevers, not in distress, no nausea. Objective - Vital Signs/Intake and Output Vital Signs (last 24 hours): Temp Pulse Resp BP Pulse Ox 98.2 F 79 18 123/66 98 04/18/18 16:00 04/18/18 16:00 04/18/18 16:00 04/18/18 17:37 04/18/18 16:00 Intake and Output: 04/18/18 04/19/18 18:59 06:59 Intake Total 680 Balance 680 - Medications Medications: Current Medications Acetaminophen (Tylenol 325mg Tab) 650 mg PO Q6H [facility] Last Admin: 04/18/18 22:28 Dose: Not Given Albuterol/Ipratropium (Duoneb 3 Mg/0.5 Mg (3 Ml) Ud) 3 ml IH [id number] [facility] Last Admin: 04/18/18 20:22 Dose: 3 ml Aspirin (Ecotrin) 81 mg PO DAILY [facility] Last Admin: 04/18/18 10:20 Dose: 81 mg Atenolol (Tenormin) 25 mg PO BID [facility] Last Admin: 04/18/18 17:37 Dose: 25 mg Atorvastatin Calcium (Lipitor) 20 mg PO HS [facility] Last Admin: 04/18/18 21:35 Dose: 20 mg Benzonatate (Tessalon Perles) 100 mg PO TID [facility] Stop: 04/18/18 23:59 Last Admin: 04/18/18 17:37 Dose: 100 mg Digoxin (Digoxin) 0.125 mg PO 1400 [facility] Last Admin: 04/18/18 15:15 Dose: 0.125 mg Docusate Sodium (Colace) 100 mg PO BID [facility] Last Admin: 04/18/18 17:35 Dose: Not Given Enoxaparin Sodium (Lovenox) 70 mg SC Q12H [facility]; Protocol Stop: 04/19/18 11:00 Last Admin: 04/18/18 17:35 Dose: 70 mg Famotidine (Pepcid) 40 mg PO HS [facility] Last Admin: 04/18/18 21:35 Dose: 40 mg Fluticasone Propionate (Flonase) 1 actuation NS DAILY [facility] Last Admin: 04/18/18 10:20 Dose: 1 spr Furosemide (Lasix) 40 mg PO DAILY [facility] Last Admin: 04/18/18 10:21 Dose: 40 mg Guaifenesin (Robitussin) 100 mg PO Q4H PRN PRN Reason: Cough Last Admin: 04/18/18 15:15 Dose: 100 mg Linezolid (Zyvox) 600 mg PO BID [facility]; Protocol Last Admin: 04/18/18 17:37 Dose: 600 mg Miconazole Nitrate (Monistat 7 Vaginal Cream) 1 ea VG HS [facility] Last Admin: 04/18/18 21:35 Dose: 1 applic Nystatin (Nystop Topical Powder) 0 gm TOP BID [facility] Last Admin: 04/18/18 17:36 Dose: 1 applic Ondansetron HCl (Zofran Inj) 4 mg IVP Q6H PRN PRN Reason: Nausea/Vomiting Last Admin: 04/14/18 16:29 Dose: 4 mg Pantoprazole Sodium (Protonix Ec Tab) 40 mg PO 0600 [facility] Last Admin: 04/18/18 05:39 Dose: 40 mg Polyethylene Glycol (Miralax) 17 gm PO DAILY [facility] Last Admin: 04/18/18 10:21 Dose: Not Given Sennosides (Senokot Tab) 17.2 mg PO HS [facility] Last Admin: 04/18/18 22:28 Dose: Not Given Warfarin Sodium (Coumadin) 4 mg PO 1800 [facility] Last Admin: 04/18/18 17:35 Dose: 4 mg - Labs Labs: 04/18/18 06:00 04/18/18 06:00 PT 18.6 SECONDS (9.4-12.5) H 04/18/18 06:00 INR 1.60 04/18/18 06:00 - Constitutional Appears: Chronically Ill - Head Exam Head Exam: NORMAL INSPECTION - Neck Exam Neck Exam: absent: Meningismus - Respiratory Exam Respiratory Exam: Decreased Breath Sounds - Cardiovascular Exam Cardiovascular Exam: +S1, +S2 - GI/Abdominal Exam GI & Abdominal Exam: Soft. 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 Watson previously
[2018-04-19] MEDS: Pantoprazole 40 mg EC Tab PO SCH (05:42)
[2018-04-19] MEDS: Enoxaparin 80 mg Syringe SC SCH (05:42)
[2018-04-19 06:52] LABS: HEMOGLOBIN 8.6 g/dL (12.0-16.0); MEAN CELL VOLUME 86.2 fl (80.0-105.0); MEAN CORPUSCULAR HEMOGLOBIN 28.9 pg (25.0-35.0); MEAN CORPUSCULAR HGB CONC 33.5 g/dl (31.0-37.0); MEAN PLATELET VOLUME 9.4 fl (7.0-11.0); RBC 2.98 10^6/uL (3.5-6.1); RED CELL DISTRIBUTION WIDTH 15.5 % (11.5-14.5); WHITE BLOOD COUNT 5.1 10^3/ul (4.5-11.0)
[2018-04-19 06:56] LABS: INR 1.89
[2018-04-19] MEDS: Albuterol-Ipratrop 3 mg / 0.5 (3 ml) UD IH SCH (08:00)
[2018-04-19] MEDS: Fluticasone Nasal 50 mcg/Spray NS SCH (09:50)
[2018-04-19] MEDS: POLYETHYLENE GLYCOL 3350 17 GM/Dose PACKET PO SCH (09:51)
[2018-04-19] MEDS: Nystatin 100,000 Units/gm Topical Pow(15 gm) TOP SCH (09:51)
[2018-04-19] MEDS: guaiFENesin 100 mg/5 ml Syrup UD PO PRN (09:53)
[2018-04-19 09:57] VITALS: BP 123/67
[2018-04-19 10:31] VITALS: PULSE 92; RESP 20; TEMP 98.7; O2SAT 97
--- NOTE | 2018-04-19 11:51 | CP.PCM.PN ---
Subjective - Date & Time of Evaluation Date of Evaluation: 04/19/18 Time of Evaluation: 11:30 - Subjective Subjective: House doctor note: Received a page regarding removal of the PICC line. Nursing staff as well as the patients daughter contacted Dr González Singh which requested the PICC line be removed. ID following the case was contacted and agrees with the plan. PICC line removed with no complications. Objective - Vital Signs/Intake and Output Vital Signs (last 24 hours): Temp Pulse Resp BP Pulse Ox 98.7 F 92 H 20 123/67 97 04/19/18 10:00 04/19/18 10:00 04/19/18 10:00 04/19/18 10:00 04/19/18 10:00 Intake and Output: 04/19/18 04/19/18 06:59 18:59 Intake Total 680 Balance 680 - Medications Medications: Current Medications Acetaminophen (Tylenol 325mg Tab) 650 mg PO Q6H [facility] Last Admin: 04/19/18 09:53 Dose: Not Given Albuterol/Ipratropium (Duoneb 3 Mg/0.5 Mg (3 Ml) Ud) 3 ml IH [id number] [facility] Last Admin: 04/19/18 08:00 Dose: 3 ml Aspirin (Ecotrin) 81 mg PO DAILY [facility] Last Admin: 04/19/18 09:50 Dose: 81 mg Atenolol (Tenormin) 25 mg PO BID [facility] Last Admin: 04/19/18 09:51 Dose: 25 mg Atorvastatin Calcium (Lipitor) 20 mg PO HS [facility] Last Admin: 04/18/18 21:35 Dose: 20 mg Digoxin (Digoxin) 0.125 mg PO 1400 [facility] Last Admin: 04/18/18 15:15 Dose: 0.125 mg Docusate Sodium (Colace) 100 mg PO BID [facility] Last Admin: 04/19/18 09:48 Dose: Not Given Famotidine (Pepcid) 40 mg PO HS [facility] Last Admin: 04/18/18 21:35 Dose: 40 mg Fluticasone Propionate (Flonase) 1 actuation NS DAILY [facility] Last Admin: 04/19/18 09:50 Dose: 1 spr Furosemide (Lasix) 40 mg PO DAILY [facility] Last Admin: 04/19/18 09:51 Dose: 40 mg Guaifenesin (Robitussin) 100 mg PO Q4H PRN PRN Reason: Cough Last Admin: 04/19/18 09:53 Dose: 100 mg Linezolid (Zyvox) 600 mg PO BID [facility]; Protocol Last Admin: 04/19/18 09:52 Dose: 600 mg Miconazole Nitrate (Monistat 7 Vaginal Cream) 1 ea VG HS [facility] Last Admin: 04/18/18 21:35 Dose: 1 applic Nystatin (Nystop Topical Powder) 0 gm TOP BID [facility] Last Admin: 04/19/18 09:51 Dose: 1 applic Ondansetron HCl (Zofran Inj) 4 mg IVP Q6H PRN PRN Reason: Nausea/Vomiting Last Admin: 04/14/18 16:29 Dose: 4 mg Pantoprazole Sodium (Protonix Ec Tab) 40 mg PO 0600 [facility] Last Admin: 04/19/18 05:42 Dose: 40 mg Polyethylene Glycol (Miralax) 17 gm PO DAILY [facility] Last Admin: 04/19/18 09:51 Dose: Not Given Sennosides (Senokot Tab) 17.2 mg PO [facility] Last Admin: 04/18/18 22:28 Dose: Not Given Warfarin Sodium (Coumadin) 4 mg PO 1800 [facility] Last Admin: 04/18/18 17:35 Dose: 4 mg - Labs Labs: 04/19/18 06:23 04/18/18 06:00 PT 22.0 SECONDS (9.4-12.5) H 04/19/18 06:23 INR 1.89 04/19/18 06:23 APTT 36.0 Seconds (25.1-36.5) 04/19/18 06:23
--- NOTE | 2018-04-19 13:10 | PN ---
DATE: 04/19/2018 SUBJECTIVE: The patient is seen in room 315 early this morning, awake and alert. No fevers, no chills. Tolerating the antibiotics well. PHYSICAL EXAMINATION: VITAL SIGNS: On exam, temperature is 98, blood pressure is 120/60, respiratory rate of 18. HEENT: Examination of HEENT is unremarkable. NECK: Supple. LUNGS: Have decreased breath sounds. HEART: Normal S1, S2. ABDOMEN: Soft, nontender. LABORATORY DATA: Laboratory examination reveals a white count of 5.1, hemoglobin of 8, platelets of 95. Chemistries reveals a BUN of 18, creatinine of 0.6. Toxicology is reviewed. Microbiology is also reviewed with multiple cultures for VRE. Review of orders revealed the patient to be on Zyvox. 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 Currently, on Zyvox. All cultures growing vancomycin-resistant Enterococcus. We will continue the Zyvox for at least 6 weeks and monitor CBC, SMA 18, sed rate, C-reactive protein and chemistries once weekly and specifically monitor the bone marrow toxicity such as thrombocytopenia. Case discussed with Dr. Romero at length this morning and it will be difficult prolonged antibiotics with the patient since the patient is also allergic to penicillin. The patient's case discussed with Dr. Romero in detail. Dominick Simeon MD
--- NOTE | 2018-04-19 22:03 | PN ---
DATE: 04/19/2018 SUBJECTIVE: The patient is an 82-year-old white female who was seen in TCU. She is getting ready to be transferred to [facility] for physical therapy, continuation of antibiotics and close observation. Patient was admitted with also septic right knee prosthesis, had been on antibiotic, recently changed to p.o. Zyvox and doing well. Denies any nausea or vomiting. No diarrhea. Eating and tolerating. PHYSICAL EXAMINATION: VITAL SIGNS: She is afebrile, pulse 92, respirations 20, blood pressure 123/67. LUNGS: Bilateral fair airflow. No rhonchi or crackle. HEART: S1, S2 audible. ABDOMEN: Soft, nontender. No rebound, no guarding. NEUROLOGIC: She is awake, alert, oriented and communicative. EXTREMITIES: Right leg +1 edema. Right knee is in immobilizer. LABORATORY EXAM: WBC 5.1, hemoglobin 8.6, hematocrit 25.7, platelet 195. PT 22, INR 1.89. ASSESSMENT: 1. Infected right knee prosthesis, status post spacer placement. 2. Coronary artery disease, status post angioplasty. 3. Chronic atrial fibrillation. 4. Status post antibiotic spacer placement. 5. Iron deficiency anemia. 6. Hypertension. 7. Hypernatremia. 8. Deconditioning and difficulty walking. PLAN: Patient is being transferred to [facility]. Continue on p.o. Zyvox. Dr. Waller will follow up patient in [facility], since she was given Zyvox, her PICC line being removed today as per Infectious Disease recommendation, so it was removed by surgical assist. Dr. Waller will follow up the patient in the [facility]. Marly Romero MD
--- NOTE | 2018-04-22 07:28 | CP.PCM.DIS ---
Provider - Provider Date of Admission: 04/11/18 20:42 Attending physician: Hernan Watson MD Time Spent in preparation of Discharge (in minutes): 30 Diagnosis - Discharge Diagnosis (1) Infection of prosthetic right knee joint Status: Acute (2) Acute blood loss as cause of postoperative anemia Status: Acute Hospital Course - Lab Results Lab Results: Most Recent Lab Values WBC 5.1 10^3/ul (4.5-11.0) 04/19/18 06:23 RBC 2.98 10^6/uL (3.5-6.1) L 04/19/18 06:23 Hgb 8.6 g/dL (12.0-16.0) L 04/19/18 06:23 Hct 25.7 % (36.0-48.0) L 04/19/18 06:23 MCV 86.2 fl (80.0-105.0) 04/19/18 06:23 MCH 28.9 pg (25.0-35.0) 04/19/18 06:23 MCHC 33.5 g/dl (31.0-37.0) 04/19/18 06:23 RDW 15.5 % (11.5-14.5) H 04/19/18 06:23 Plt Count 95 10^3/uL (120.0-450.0) L 04/19/18 06:23 MPV 9.4 fl (7.0-11.0) 04/19/18 06:23 Gran % 76.3 % (50.0-68.0) H 04/18/18 06:00 Lymph % (Auto) 18.6 % (22.0-35.0) L 04/18/18 06:00 [place] % (Auto) 2.4 % (1.0-6.0) 04/18/18 06:00 Eos % (Auto) 2.5 % (1.5-5.0) 04/18/18 06:00 Baso % (Auto) 0.2 % (0.0-3.0) 04/18/18 06:00 Gran # 4.84 (1.4-6.5) 04/18/18 06:00 Lymph # (Auto) 1.2 (1.2-3.4) 04/18/18 06:00 [place] # (Auto) 0.2 (0.1-0.6) 04/18/18 06:00 Eos # (Auto) 0.2 (0.0-0.7) 04/18/18 06:00 Baso # (Auto) 0.01 K/mm3 (0.0-2.0) 04/18/18 06:00 ESR 24 mm/hr (0.0-20.0) H 04/17/18 07:20 PT 22.0 SECONDS (9.4-12.5) H 04/19/18 06:23 INR 1.89 04/19/18 06:23 APTT 36.0 Seconds (25.1-36.5) 04/19/18 06:23 Sodium 130 mmol/L (132-148) L 04/18/18 06:00 Potassium 3.9 mmol/L (3.6-5.0) 04/18/18 06:00 Chloride 93 mmol/L (98-107) L 04/18/18 06:00 Carbon Dioxide 31 mmol/L (21-33) 04/18/18 06:00 Anion Gap 10 (10-20) 04/18/18 06:00 BUN 18 mg/dL (7-21) 04/18/18 06:00 Creatinine 0.6 mg/dl (0.7-1.2) L 04/18/18 06:00 Est GFR ( Amer) > 60 04/18/18 06:00 Est GFR (Non-Af Amer) > 60 04/18/18 06:00 Random Glucose 101 mg/dL (70-110) 04/18/18 06:00 Calcium 8.0 mg/dL (8.4-10.5) L 04/18/18 06:00 Phosphorus 3.1 mg/dL (2.5-4.5) 04/17/18 07:20 Magnesium 2.1 mg/dL (1.7-2.2) 04/17/18 07:20 Total Bilirubin 1.0 mg/dL (0.2-1.3) 04/17/18 07:20 AST 24 U/L (14-36) 04/17/18 07:20 ALT 33 U/L (7-56) 04/17/18 07:20 Alkaline Phosphatase 99 U/L (38-126) 04/17/18 07:20 C-Reactive Protein 30.20 mg/L (0.0-9.9) H 04/17/18 11:46 C-Reactive Prot, Quant 31.2 mg/L (<8.0) H 04/17/18 07:20 Total Protein 5.4 g/dL (5.8-8.3) L 04/17/18 07:20 Albumin 2.7 g/dL (3.0-4.8) L 04/17/18 07:20 Globulin 2.7 gm/dL 04/17/18 07:20 Albumin/Globulin Ratio 1.0 (1.1-1.8) L 04/17/18 07:20 Stool Occult Blood Negative (NEGATIVE) 04/17/18 15:00 Digoxin 1.0 ng/mL (0.8-2.0) 04/13/18 06:30 Blood Type O NEGATIVE 04/17/18 09:17 Antibody Screen Negative 04/17/18 09:17 BBK History Checked Patient has bt 04/17/18 09:17 - Hospital Course Hospital Course: Patient tolerated PT/OT well. Patient was continued with PO Zyvox per ID Primary care provider and ID was on board and following patient Patient received one unit of packed red blood cells on 04/18/18 Patient was discharged to [facility] rehab facility Discharge Exam - Head Exam Head Exam: NORMAL INSPECTION - Respiratory Exam Respiratory Exam: NORMAL BREATHING PATTERN - Cardiovascular Exam Cardiovascular Exam: RRR - Extremities Exam Additional comments: Dressings changed, New DUDLEY applied. Incision clean with sutures intact. Area of skin necrosis. Distal incision appears moist. Thigh and calf are soft and nont inocente. NVI distally Discharge Plan - Follow Up Plan Condition: GOOD Disposition: REHAB FACILITY/REHAB UNIT Instructions: Osteoarthritis (DC), Total Knee Replacement (DC), Vancomycin- Resistant Enterococci (DC) Additional Instructions: Cont PWB with knee immobilizer at all times Cont PO Zyvox f/u Dr. Watson office 04/24
== END 2018-04-19 11:54 | DRG 945 ==
LOC: TRCU 20:42
PROVIDERS: ADMIT Orthopaedic Surgery; ATTEND Orthopaedic Surgery
PROC: F07Z8FZ Transfer Training Treatment using Assistive, Adaptive, Supportive or Protective Equipment (ICD-10-PCS; 2018-04-11)
PROC: F07Z5FZ Bed Mobility Treatment using Assistive, Adaptive, Supportive or Protective Equipment (ICD-10-PCS; principal; 2018-04-13)
PROC: F07L6YZ Therapeutic Exercise Treatment of Musculoskeletal System - Lower Back / Lower Extremity using Other Equipment (ICD-10-PCS; 2018-04-14)
PROC: F08Z1FZ Dressing Techniques Treatment using Assistive, Adaptive, Supportive or Protective Equipment (ICD-10-PCS; 2018-04-14)
PROC: F08Z0FZ Bathing/Showering Techniques Treatment using Assistive, Adaptive, Supportive or Protective Equipment (ICD-10-PCS; 2018-04-17)
PROC: 02PYX3Z Removal of Infusion Device from Great Vessel, External Approach (ICD-10-PCS; 2018-04-19)
DX: T84.53XD Infection and inflammatory reaction due to internal right knee prosthesis, subsequent encounter (principal); M96.840 Postprocedural hematoma of a musculoskeletal structure following a musculoskeletal system procedure; D62 Acute posthemorrhagic anemia; E87.1 Hypo-osmolality and hyponatremia; R26.2 Difficulty in walking, not elsewhere classified; I11.0 Hypertensive heart disease with heart failure; I50.9 Heart failure, unspecified; E78.00 Pure hypercholesterolemia, unspecified; E87.6 Hypokalemia; D69.59 Other secondary thrombocytopenia; T36.8X5A Adverse effect of other systemic antibiotics, initial encounter; F41.9 Anxiety disorder, unspecified; I08.1 Rheumatic disorders of both mitral and tricuspid valves; I27.20 Pulmonary hypertension, unspecified; I25.10 Atherosclerotic heart disease of native coronary artery without angina pectoris; I48.2 Chronic atrial fibrillation; K21.9 Gastro-esophageal reflux disease without esophagitis; M17.11 Unilateral primary osteoarthritis, right knee; Z96.651 Presence of right artificial knee joint; B37.2 Candidiasis of skin and nail; B37.3 Candidiasis of vulva and vagina; T36.95XA Adverse effect of unspecified systemic antibiotic, initial encounter; Z16.21 Resistance to vancomycin; R05 Cough; F50.89 Other specified eating disorder; Y83.1 Surgical operation with implant of artificial internal device as the cause of abnormal reaction of the patient, or of later complication, without mention of misadventure at the time of the procedure; Z98.61 Coronary angioplasty status; Z88.0 Allergy status to penicillin; Z79.01 Long term (current) use of anticoagulants

== ENCOUNTER 2018-04-23 21:39 | Inpatient (IN) | payer MEDICARE, BC ==
[2018-04-23 21:44] VITALS: BMI 26.4
--- NOTE | 2018-04-23 23:06 | ED PDOC ---
Arrival/HPI - General Chief Complaint: GI Problem Time Seen by Provider: 04/23/18 21:45 Historian: Patient - History of Present Illness Narrative History of Present Illness (Text): 04/23/18 23:00 82 year old female, whose past medical history includes CAD w/ stent placement, hypertension, Afib (coumadin) , OA R knee, and s/p right DJD with total knee replacement (02/18/18), presents to the emergency department accompanied by daughter complaining of persistent vomiting ever since patient was discharge associated with decrease appetite and weight loss. Patient was recently admitted for right total knee infection on 03/31/18 and is currently taking Zyvox. Patient states her PMD Dr. Waller sent her to the ER for admission to have an endoscopy done by Dr. Power. Patient reports cough that began 2 weeks ago, but denies any fever, chills, chest pain, shortness of breath, diarrhea, abdominal pain, urinary symptoms, back pain, neck pain, headache, dizziness, or any other complaints. PMD: Dr. Waller Surgeon: Dr. Watson Rn Endocrinology: Dr. Medrano \ Symptom Onset: Gradual Symptom Course: Unchanged Activities at Onset: Light Context: Home Past Medical History - Provider Review Nursing Documentation Reviewed: Yes - Infectious Disease Hx of Infectious Diseases: None - Tetanus Immunization Tetanus Immunization: Unknown - Cardiac Hx Cardiac Disorders: Yes Hx Hypertension: Yes - Pulmonary Hx Pneumonia: Yes - Neurological Hx Neurological Disorder: Yes Hx Dizziness: Yes - HEENT Hx HEENT Disorder: Yes Hx Cataracts: Yes - Renal Hx Renal Disorder: No - Endocrine/Metabolic Hx Endocrine Disorders: No - Hematological/Oncological Hx Cancer: No - Integumentary Hx Dermatological Disorder: No - Musculoskeletal/Rheumatological Hx Arthritis: Yes - Gastrointestinal Hx Gastrointestinal Disorders: No - Genitourinary/Gynecological Hx Genitourinary Disorders: Yes (PMB) - Psychiatric Hx Psychophysiologic Disorder: No Hx Substance Use: No - Surgical History Hx Mastectomy: No - Anesthesia Hx Anesthesia Reactions: No Hx Malignant Hyperthermia: No - Suicidal Assessment Feels Threatened In Home Enviroment: No Family/Social History - Physician Review Nursing Documentation Reviewed: Yes Family/Social History: No Known Family HX Smoking Status: Never Smoked Hx Alcohol Use: No Hx Substance Use: No Allergies/Home Meds Allergies/Adverse Reactions: Allergies diphenhydramine [From Benadryl] Allergy (Severe, Verified 02/07/18 10:08) unknown nitroglycerin Allergy (Severe, Verified 02/07/18 10:08) ANAPHYLAXIS pcn Allergy (Severe, Uncoded 02/07/18 10:08) RASH silk tape Allergy (Uncoded 04/08/18 16:01) blisters chocolate candy Adverse Reaction (Severe, Uncoded 02/07/18 10:08) HEADACHE Home Medications: Home Meds Medication Instructions Recorded Confirmed Aspirin [Ecotrin] 81 mg PO DAILY 11/18/15 04/23/18 Warfarin [Coumadin] 2 mg PO DAILY 11/18/15 04/23/18 Digoxin 0.125 mg PO DAILY 08/19/16 04/23/18 Simvastatin [Zocor] 40 mg PO HS 08/19/16 04/23/18 Atenolol [Tenormin] 25 mg PO BID 02/01/17 04/23/18 Furosemide [Lasix] 40 mg PO DAILY 03/31/18 04/23/18 Acetaminophen [Tylenol 325mg tab] 650 mg PO Q6H PRN 04/23/18 04/23/18 Review of Systems - Physician Review All systems were reviewed & negative as marked: Yes - Review of Systems Constitutional: Weight Change. absent: Fevers, Other (Chills) Respiratory: Cough. absent: SOB Cardiovascular: absent: Chest Pain Gastrointestinal: Vomiting, Appetite Changes. absent: Abdominal Pain, Diarrhea Musculoskeletal: absent: Back Pain, Neck Pain Neurological: absent: Headache, Dizziness Physical Exam - Physical Exam Narrative Physical Exam (Text): Gen: VS reviewed, alert, well developed, well nourished, nontoxic, mild distress. ENT: normal pharynx. Eye: EOMI, PERRL. Neck: no JVD, supple, no adenopathy. CV: regular rate, regular rhythm, no rubs, no murmur, no gallops, S1, S2, pulses equal and strong. Pulm: no distress, clear to auscultation, no wheeze, no rhonchi, breath sounds equal, no rales. Abd: soft, nontender, no guarding, no rebound, no rigidity, normal bowel sounds. Skin: Pale, no rash, no cyanosis. Psych: responds appropriately to questions, normal affect. Neuro: oriented x 3, CN2-12 intact grossly, motor intact, sensation intact. Vital Signs Reviewed: Yes Vital Signs Temp Pulse Resp BP Pulse Ox 04/23/18 21:51 97.9 F 62 18 134/66 98 Temperature: Afebrile Blood Pressure: Normal Pulse: Regular Respiratory Rate: Normal Medical Decision Making ED Course and Treatment: 04/23/18 23:00 Impression: 82 year old female presents complaining of persistent vomiting, weight loss, and decrease appetite. Plan: -- Labs -- Head CT w/o contrast -- EKG -- Zofran -- Reassess and disposition Prior Visits: Notes and results from previous visits were reviewed. Progress Notes: 04/24/18 02:[address] waller, patient to be admitted for recurrent/intractable vomiting, GI consultation with Dr. hall. patient remained stable throughout ED course - Lab Interpretations I have reviewed the lab results: Yes - RAD Interpretation Narrative RAD Interpretations (Text): EXAM: CT scan of the head. Electronically signed on Apr 24, 2018 1:55:39 AM EDT by: Wilfrid Chavez M.D. IMPRESSION: 1. Age-appropriate cerebellar and cerebral atrophy. 2. Mild chronic microvascular disease. 3. No evidence of acute intracranial pathology. No change is noted since the prior exam 05/11/2017. Radiology Orders: 04/23/18 23:03 HEAD W/O CONTRAST [CT] Stat Overlay Operator: Radiologist - EKG Interpretation EKG Interpretation (Text): 04/24/18 01:07 [id number] on 04.23: sinus rhythm at 60 bpm, nml qrs, nonspecific t wave abn Interpreted by ED Physician: Yes Type: 12 lead EKG - Scribe Statement The provider has reviewed the documentation as recorded by the Linoibe Carol Cotto Provider Scribe Attestation: All medical record entries made by the Linoibe were at my direction and personally dictated by me. I have reviewed the chart and agree that the record accurately reflects my personal performance of the history, physical exam, medical decision making, and the department course for this patient. I have also personally directed, reviewed, and agree with the discharge instructions and disposition. Disposition/Present on Arrival - Present on Arrival Any Indicators Present on Arrival: No History of DVT/PE: No History of Uncontrolled Diabetes: No Urinary Catheter: No History of Decub. Ulcer: No History Surgical Site Infection Following: Orthopedic Procedures - Disposition Have Diagnosis and Disposition been Completed?: Yes Diagnosis: Vomiting Disposition: HOSPITALIZED Disposition Time: 02:15 Patient Plan: Admission Condition: STABLE Forms: [employer] (Wolof)
[2018-04-23 23:34] LABS: BASO # 0.01 K/mm3 (0.0-2.0); BASO % 0.1 % (0.0-3.0); EOS % 0.3 % (1.5-5.0); GRAN # 4.7 (1.4-6.5); GRAN % 68.9 % (50.0-68.0); HEMOGLOBIN 9.3 g/dL (12.0-16.0); LYMPH # 1.7 (1.2-3.4); LYMPH % 24.2 % (22.0-35.0); MEAN CELL VOLUME 85.9 fl (80.0-105.0); MEAN CORPUSCULAR HEMOGLOBIN 29.2 pg (25.0-35.0); MEAN CORPUSCULAR HGB CONC 33.9 g/dl (31.0-37.0); MEAN PLATELET VOLUME 9.4 fl (7.0-11.0); MONO # 0.4 (0.1-0.6); MONO % 6.5 % (1.0-6.0); RBC 3.19 10^6/uL (3.5-6.1); RED CELL DISTRIBUTION WIDTH 15.6 % (11.5-14.5); WHITE BLOOD COUNT 6.8 10^3/ul (4.5-11.0)
[2018-04-23 23:45] LABS: PARTIAL THROMBOPLASTIN TIME 37.3 Seconds (25.1-36.5); PROTHROMBIN TIME 42.8 SECONDS (9.4-12.5)
[2018-04-23 23:49] LABS: ALB/GLOB RATIO 1.1 (1.1-1.8); ALBUMIN 3.5 g/dL (3.0-4.8); ALT/SGPT 26 U/L (7-56); AST/SGOT 23 U/L (14-36); BLOOD UREA NITROGEN 25 mg/dL (7-21); CALCIUM 8.6 mg/dL (8.4-10.5); GFR NON-AFRICAN AMERICAN > 60
[2018-04-23 23:51] LABS: INR 3.66
[2018-04-23 23:52] LABS: TROPONIN I < 0.01 ng/mL
[2018-04-24] MEDS: Potassium Chloride 10 MEQ in Dextrose 5%/0.45% NS 1,000 ML IV SCH ×2 (04:18→17:22)
--- NOTE | 2018-04-24 07:49 | CP.PCM.HP ---
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 Patient reports she has been having vomiting that is clear in color for the last few days. Patient denies having any abdominal pain, diarrhea, fever/chills, chest pain, shortness of breath, dysuria/hematuria, or pain. She was evaluated for these symptoms at last admission and her nausea was relieved by Buspar. It is unclear it patient was receiving the medication in the rehab. Patient also reports poor appetite because she does not like the food at the facility. She had an appointment today for dressing change with Dr. Watson as outpatient. 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 Lives alone. Walks with walker. Family history: heart disease Present on Admission - Present on Admission Any Indicators Present on Admission: No Review of Systems - Review of Systems All systems: reviewed and no additional remarkable complaints except Review of Systems: 12 point ROS reviewed as per HPI and is otherwise negative Past Patient History - Infectious Disease Hx of Infectious Diseases: None - Tetanus Immunizations Tetanus Immunization: Unknown - Past Medical History & Family History Past Medical History?: Yes - Past Social History Smoking Status: Never Smoked - CARDIAC Hx Cardiac Disorders: Yes Hx Hypertension: Yes - PULMONARY Hx Pneumonia: Yes - NEUROLOGICAL Hx Neurological Disorder: Yes Hx Dizziness: Yes - HEENT Hx HEENT Problems: Yes Hx Cataracts: Yes - RENAL Hx Chronic Kidney Disease: No - ENDOCRINE/METABOLIC Hx Endocrine Disorders: No - HEMATOLOGICAL/ONCOLOGICAL Hx Cancer: No - INTEGUMENTARY Hx Dermatological Problems: No - MUSCULOSKELETAL/RHEUMATOLOGICAL Hx Arthritis: Yes - GASTROINTESTINAL Hx Gastrointestinal Disorders: No - GENITOURINARY/GYNECOLOGICAL Hx Genitourinary Disorders: Yes (PMB) - PSYCHIATRIC Hx Psychophysiologic Disorder: No Hx Substance Use: No - SURGICAL HISTORY Hx Mastectomy: No - ANESTHESIA Hx Anesthesia Reactions: No Hx Malignant Hyperthermia: No Meds Allergies/Adverse Reactions: Allergies Allergy/AdvReac Type Severity Reaction Status Date / Time diphenhydramine Allergy Severe unknown Verified 04/24/18 12:02 [From Benadryl] nitroglycerin Allergy Severe ANAPHYLAXIS Verified 04/24/18 12:02 pcn Allergy Severe RASH Uncoded 04/24/18 12:02 silk tape Allergy blisters Uncoded 04/24/18 12:02 chocolate candy AdvReac Severe HEADACHE Uncoded 04/24/18 12:02 Physical Exam - Constitutional Appears: No Acute Distress - Head Exam Head Exam: ATRAUMATIC, NORMAL INSPECTION, NORMOCEPHALIC - Eye Exam Eye Exam: Normal appearance, PERRL Pupil Exam: NORMAL ACCOMODATION - ENT Exam ENT Exam: Mucous Membranes Dry - Neck Exam Neck exam: Positive for: Full Rom, Normal Inspection. Negative for: Lymphadenopathy, Tenderness - Respiratory Exam Respiratory Exam: Clear to Auscultation Bilateral, NORMAL BREATHING PATTERN. absent: Rales, Rhonchi, Wheezes - Cardiovascular Exam Cardiovascular Exam: Irregular Rhythm, +S1, +S2. absent: Tachycardia, Gallop, Rubs, Systolic Murmur - GI/Abdominal Exam GI & Abdominal Exam: Normal Bowel Sounds, Soft. absent: Distended, Firm, Guarding, Mass, Rebound, Rigid, Tenderness - Extremities Exam Extremities exam: Positive for: normal capillary refill, pedal pulses present. Negative for: calf tenderness, pedal edema Additional comments: R LENNOX has dressing in place- clean and dry - Neurological Exam Neurological exam: Alert, CN II-XII Intact, Oriented x3 Additional comments: no focal neurologic deficit - Psychiatric Exam Psychiatric exam: Depressed, Normal Affect Additional comments: denies suicidal or homicidal ideation - Skin Skin Exam: Dry, Normal Color, Warm Results - Vital Signs Recent Vital Signs: Last Vital Signs Temp 97.9 F 04/23/18 21:51 Pulse 63 04/24/18 07:24 Resp 18 04/24/18 07:24 BP 118/53 L 04/24/18 07:24 Pulse Ox 96 04/24/18 07:24 - Labs Result Diagrams: 04/23/18 23:21 04/23/18 23:21 Labs: Laboratory Results - last 24 hr 04/23/18 04/23/18 04/23/18 23:21 23:21 23:21 WBC 6.8 D RBC 3.19 L Hgb 9.3 L Hct 27.4 L MCV 85.9 MCH 29.2 MCHC 33.9 RDW 15.6 H Plt Count 137 MPV 9.4 Gran % 68.9 H Lymph % (Auto) 24.2 Jones % (Auto) 6.5 H Eos % (Auto) 0.3 L Baso % (Auto) 0.1 Gran # 4.70 Lymph # (Auto) 1.7 Jones # (Auto) 0.4 Eos # (Auto) 0.0 Baso # (Auto) 0.01 PT 42.8 H INR 3.66 H* APTT 37.3 H Sodium 132 Potassium 4.0 Chloride 94 L Carbon Dioxide 28 Anion Gap 14 BUN 25 H Creatinine 0.6 L Est GFR ( Amer) > 60 Est GFR (Non-Af Amer) > 60 Random Glucose 113 H Calcium 8.6 Magnesium 2.1 Total Bilirubin 1.4 H AST 23 ALT 26 Alkaline Phosphatase 105 Troponin I < 0.01 Total Protein 6.7 Albumin 3.5 Globulin 3.2 Albumin/Globulin Ratio 1.1 Blood Type Antibody Screen BBK History Checked 04/23/18 23:56 WBC RBC Hgb Hct MCV MCH MCHC RDW Plt Count MPV Gran % Lymph % (Auto) Jones % (Auto) Eos % (Auto) Baso % (Auto) Gran # Lymph # (Auto) Jones # (Auto) Eos # (Auto) Baso # (Auto) PT INR APTT Sodium Potassium Chloride Carbon Dioxide Anion Gap BUN Creatinine Est GFR ( Amer) Est GFR (Non-Af Amer) Random Glucose Calcium Magnesium Total Bilirubin AST ALT Alkaline Phosphatase Troponin I Total Protein Albumin Globulin Albumin/Globulin Ratio Blood Type O NEGATIVE Antibody Screen Negative BBK History Checked Patient has bt Assessment & Plan - Assessment and Plan (Free Text) Assessment: 1. Nausea/vomiting - can be secondary to gastroparesis v. ulcers 2. 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 Supratherapeutic INR 4. A.fib - On Coumadin 5. HTN 6. CAD 7. OA 8. DJD Plan: Labs and imaging reviewed. Head CT negative for acute pathology. GI on consult. Possible plan for EGD. Patient is on clear liquid diet and on IV fluids with additives. Zofran prn nausea and will continue pepcid. BP is low. Will hold Lasix and Atenolol. Will hold Coumadin for supratherapeutic INR and continue to monitor. Will hold ASA for now but continue Lipitor for CAD. Continue Digoxin for A.fib and will check digoxin level. Continue PO Zyvox for VRE. Patient has completed 21 out of 42 days of Zyvox. Ortho consulted for dressing change. Pain is controlled. Case seen, discussed and reviewed with Dr. Christin Boothe PGY3 - Date & Time Date: 04/24/18 Time: 08:30 <Ajay Waller S - Last Filed: 04/24/18 16:37> Results - Vital Signs Recent Vital Signs: Last Vital Signs Temp 97.9 F 04/23/18 21:51 Pulse 64 04/24/18 14:24 Resp 16 04/24/18 14:24 BP 125/74 04/24/18 14:24 Pulse Ox 98 04/24/18 14:24 - Labs Result Diagrams: 04/23/18 23:21 04/23/18 23:21 Labs: Laboratory Results - last 24 hr 04/23/18 04/23/18 04/23/18 23:21 23:21 23:21 WBC 6.8 D RBC 3.19 L Hgb 9.3 L Hct 27.4 L MCV 85.9 MCH 29.2 MCHC 33.9 RDW 15.6 H Plt Count 137 MPV 9.4 Gran % 68.9 H Lymph % (Auto) 24.2 Jones % (Auto) 6.5 H Eos % (Auto) 0.3 L Baso % (Auto) 0.1 Gran # 4.70 Lymph # (Auto) 1.7 Jones # (Auto) 0.4 Eos # (Auto) 0.0 Baso # (Auto) 0.01 PT 42.8 H INR 3.66 H* APTT 37.3 H Sodium 132 Potassium 4.0 Chloride 94 L Carbon Dioxide 28 Anion Gap 14 BUN 25 H Creatinine 0.6 L Est GFR ( Amer) > 60 Est GFR (Non-Af Amer) > 60 Random Glucose 113 H Calcium 8.6 Magnesium 2.1 Total Bilirubin 1.4 H AST 23 ALT 26 Alkaline Phosphatase 105 Troponin I < 0.01 Total Protein 6.7 Albumin 3.5 Globulin 3.2 Albumin/Globulin Ratio 1.1 Digoxin Blood Type Antibody Screen BBK History Checked 04/23/18 04/24/18 23:56 08:05 WBC RBC Hgb Hct MCV MCH MCHC RDW Plt Count MPV Gran % Lymph % (Auto) Jones % (Auto) Eos % (Auto) Baso % (Auto) Gran # Lymph # (Auto) Jones # (Auto) Eos # (Auto) Baso # (Auto) PT INR APTT Sodium Potassium Chloride Carbon Dioxide Anion Gap BUN Creatinine Est GFR ( Amer) Est GFR (Non-Af Amer) Random Glucose Calcium Magnesium Total Bilirubin AST ALT Alkaline Phosphatase Troponin I Total Protein Albumin Globulin Albumin/Globulin Ratio Digoxin 1.5 Blood Type O NEGATIVE Antibody Screen Negative BBK History Checked Patient has bt Assessment & Plan - Assessment and Plan (Free Text) Plan: Pt seen and examined. I have reviewed the note of the nuclear medical technologist and agree with it. I have discussed the assessment and plan with the resident. I have reviewed the patient's labs and medications. Pt admitted to the hospital for nausea and vomiting. She was not able to take her meds at [facility] due to vomiting. I spoke to Marii (daughter), yesterday. The pt will be on IVF. INR is elevated so I will hold the Coumadin. She also has an infection of the R knee and will get Dr Narvaez (Ortho) to evaluate the pt's knee. She will need to continue with Zyvox.
--- NOTE | 2018-04-24 08:23 | CT ---
Date of service: 04/24/2018 PROCEDURE: CT HEAD WITHOUT CONTRAST. HISTORY: rule out ICH COMPARISON: 05/11/2017 TECHNIQUE: Axial computed tomography images were obtained through the head/brain without intravenous contrast. Radiation dose: Total exam DLP = 847.99 mGy-cm. This CT exam was performed using one or more of the following dose reduction techniques: Automated exposure control, adjustment of the mA and/or kV according to patient size, and/or use of iterative reconstruction technique. FINDINGS: HEMORRHAGE: No intracranial hemorrhage. BRAIN: No mass effect or edema. Mild age-related atrophy and microvascular changes VENTRICLES: Unremarkable. No hydrocephalus. CALVARIUM: Unremarkable. PARANASAL SINUSES: Unremarkable as visualized. No significant inflammatory changes. MASTOID AIR CELLS: Unremarkable as visualized. No inflammatory changes. OTHER FINDINGS: The report concurs with the preliminary [facility] report IMPRESSION: No acute intracranial findings
--- NOTE | 2018-04-24 10:14 | CARD ---
APPROVED REPORT Date of service: 04/23/2018 EKG Measurement Heart [id number] P20 [id number] <Conclusion> Atrial fibrillation ST & T wave abnormality, consider inferolateral ischemia Abnormal ECG
[2018-04-24] MEDS ORDERED: Iohexol 240 (50 ml) ONE (10:21)
[2018-04-24] MEDS: Digoxin 125 mcg (0.125 mg) Tab PO SCH (12:43)
--- NOTE | 2018-04-24 13:40 | CT ---
Date of service: 04/24/2018 PROCEDURE: CT Abdomen and Pelvis without intravenous contrast HISTORY: persistent vomitting COMPARISON: None. TECHNIQUE: Without contrast. Contrast dose: Radiation dose: Total exam DLP = 440.58 mGy-cm. This CT exam was performed using one or more of the following dose reduction techniques: Automated exposure control, adjustment of the mA and/or kV according to patient size, and/or use of iterative reconstruction technique. FINDINGS: LOWER THORAX: Unremarkable. LIVER: Unremarkable. No gross lesion or ductal dilatation. GALLBLADDER AND BILE DUCTS: Unremarkable. PANCREAS: Unremarkable. No gross lesion or ductal dilatation. SPLEEN: Unremarkable. ADRENALS: Unremarkable. No mass. KIDNEYS AND URETERS: Unremarkable. No hydronephrosis. No solid mass. VASCULATURE: Unremarkable. No aortic aneurysm. There is extensive aortic calcification BOWEL: Unremarkable. No obstruction. No gross mural thickening. There is moderate constipation APPENDIX: Unremarkable. Normal appendix. PERITONEUM: Unremarkable. No free fluid. No free air. LYMPH NODES: Unremarkable. No enlarged lymph nodes. BLADDER: Unremarkable. REPRODUCTIVE: Unremarkable. BONES: No acute fracture. OTHER FINDINGS: None. IMPRESSION: No acute intra-abdominal findings
[2018-04-24] MEDS ORDERED: Influenza Vaccine 60 mcg/0.5 mL SYR (4YR UP) IM ONE (20:04)
[2018-04-24] MEDS ORDERED: Pneumococcal 23-Valent Vaccine IM ONE (20:04)
[2018-04-25] MEDS: guaiFENesin 100 mg/5 ml Syrup UD PO PRN (05:19)
[2018-04-25 06:53] LABS: HEMOGLOBIN 8.3 g/dL (12.0-16.0); MEAN CELL VOLUME 86.4 fl (80.0-105.0); MEAN CORPUSCULAR HEMOGLOBIN 28.2 pg (25.0-35.0); MEAN CORPUSCULAR HGB CONC 32.7 g/dl (31.0-37.0); RBC 2.94 10^6/uL (3.5-6.1); RED CELL DISTRIBUTION WIDTH 15.8 % (11.5-14.5); WHITE BLOOD COUNT 4.5 10^3/ul (4.5-11.0)
[2018-04-25 07:00] LABS: PARTIAL THROMBOPLASTIN TIME 40.5 Seconds (25.1-36.5); PROTHROMBIN TIME 44.4 SECONDS (9.4-12.5)
[2018-04-25 07:32] LABS: INR 3.76
[2018-04-25 07:57] LABS: ALBUMIN 2.9 g/dL (3.0-4.8); ALT/SGPT 26 U/L (7-56); AST/SGOT 23 U/L (14-36); BLOOD UREA NITROGEN 20 mg/dL (7-21); CALCIUM 8.1 mg/dL (8.4-10.5); GFR NON-AFRICAN AMERICAN > 60
--- NOTE | 2018-04-25 08:43 | PN ---
DATE: 04/25/2018 SUBJECTIVE: The patient is lying in bed comfortable. She denies any further vomiting, dry heaves, nausea. She denies any abdominal pain, hematemesis, melena or rectal bleeding. She is refusing an upper endoscopy. PHYSICAL EXAMINATION: VITAL SIGNS: Reveal temperature of 98.1, blood pressure 143/66, heart rate of 68. HEENT: Reveals sclerae to be white. Conjunctivae pale. Oral mucosa is moist. NECK: Supple. CHEST: Reveals lungs to be clear. HEART: Reveals an irregular rate. ABDOMEN: Soft, nontender. EXTREMITIES: Show no pedal edema. LABORATORY DATA: Reveals hemoglobin down to 8.3, white blood cell count 4.5. Chemistries reveal calcium of 8.1, albumin of 2.9. CT scan of the abdomen and pelvis shows no abnormalities in the stomach or bowels. She does have increased fecal retention in the rectum and descending rectum and rectum and sigmoid colon. IMPRESSION: 1. Recurrent vomiting and dry heaves. The patient states that this frequently occurs after a paroxysm of cough with phlegm production. She states that she only actually vomited food once in the last week to 10 days after eating toast. She was able to eat chicken soup brought in by her daughter yesterday without any nausea and vomiting. Again, she is refusing an upper endoscopy. 2. Anemia, most likely anemia of chronic disease. The patient did have some bleeding from her drain in the right knee, which is hooked up to wound vacuum-assisted closure. 3. Coagulopathy secondary to Coumadin toxicity. Her PT this morning was 44.4 with an INR of 3.76. There is no evidence of gastrointestinal bleeding. RECOMMENDATIONS: 1. We will start the patient on MiraLax 17 g three times a day. 2. We will resume BuSpar, which the patient responded to last hospitalization 5 mg twice a day. 3. We can consider elective endoscopy if her symptoms persist. Eimle Power MD
--- NOTE | 2018-04-25 09:16 | CP.PCM.DIS ---
Addendum entered and electronically signed by Maru Boothe DO 04/25/18 10:04: Patient called daughter and reported she was suicidal. We will hold the discharge today. Psych was consulted and patient was placed on 1:1. Original Note: <Maru Boothe - Last Filed: 04/25/18 09:11> Provider - Provider Date of Admission: 04/24/18 02:16 Attending physician: Ajay Waller MD Consults: GI: Tono Ortho: Walter Time Spent in preparation of Discharge (in minutes): 35 Hospital Course - Lab Results Lab Results: Most Recent Lab Values WBC 4.5 10^3/ul (4.5-11.0) D 04/25/18 06:30 RBC 2.94 10^6/uL (3.5-6.1) L 04/25/18 06:30 Hgb 8.3 g/dL (12.0-16.0) L 04/25/18 06:30 Hct 25.4 % (36.0-48.0) L 04/25/18 06:30 MCV 86.4 fl (80.0-105.0) 04/25/18 06:30 MCH 28.2 pg (25.0-35.0) 04/25/18 06:30 MCHC 32.7 g/dl (31.0-37.0) 04/25/18 06:30 RDW 15.8 % (11.5-14.5) H 04/25/18 06:30 Plt Count 113 10^3/uL (120.0-450.0) L 04/25/18 06:30 MPV 9.0 fl (7.0-11.0) 04/25/18 06:30 Gran % 68.9 % (50.0-68.0) H 04/23/18 23:21 Lymph % (Auto) 24.2 % (22.0-35.0) 04/23/18 23:21 Mills % (Auto) 6.5 % (1.0-6.0) H 04/23/18 23:21 Eos % (Auto) 0.3 % (1.5-5.0) L 04/23/18 23:21 Baso % (Auto) 0.1 % (0.0-3.0) 04/23/18 23:21 Gran # 4.70 (1.4-6.5) 04/23/18 23:21 Lymph # (Auto) 1.7 (1.2-3.4) 04/23/18 23:21 Mills # (Auto) 0.4 (0.1-0.6) 04/23/18 23:21 Eos # (Auto) 0.0 (0.0-0.7) 04/23/18 23:21 Baso # (Auto) 0.01 K/mm3 (0.0-2.0) 04/23/18 23:21 PT 44.4 SECONDS (9.4-12.5) H 04/25/18 06:30 INR 3.76 H* 04/25/18 06:30 APTT 40.5 Seconds (25.1-36.5) H 04/25/18 06:30 Sodium 132 mmol/L (132-148) 04/25/18 06:30 Potassium 3.8 mmol/L (3.6-5.0) 04/25/18 06:30 Chloride 98 mmol/L (98-107) 04/25/18 06:30 Carbon Dioxide 27 mmol/L (21-33) 04/25/18 06:30 Anion Gap 11 (10-20) 04/25/18 06:30 BUN 20 mg/dL (7-21) 04/25/18 06:30 Creatinine 0.7 mg/dl (0.7-1.2) 04/25/18 06:30 Est GFR ( Amer) > 60 04/25/18 06:30 Est GFR (Non-Af Amer) > 60 04/25/18 06:30 Random Glucose 109 mg/dL (70-110) 04/25/18 06:30 Calcium 8.1 mg/dL (8.4-10.5) L 04/25/18 06:30 Phosphorus 2.8 mg/dL (2.5-4.5) 04/25/18 06:30 Magnesium 2.0 mg/dL (1.7-2.2) 04/25/18 06:30 Total Bilirubin 1.2 mg/dL (0.2-1.3) 04/25/18 06:30 AST 23 U/L (14-36) 04/25/18 06:30 ALT 26 U/L (7-56) 04/25/18 06:30 Alkaline Phosphatase 92 U/L (38-126) 04/25/18 06:30 Troponin I < 0.01 ng/mL 04/23/18 23:21 Total Protein 5.8 g/dL (5.8-8.3) 04/25/18 06:30 Albumin 2.9 g/dL (3.0-4.8) L 04/25/18 06:30 Globulin 2.8 gm/dL 04/25/18 06:30 Albumin/Globulin Ratio 1.0 (1.1-1.8) L 04/25/18 06:30 Digoxin 1.5 ng/mL (0.8-2.0) 04/24/18 08:05 Blood Type O NEGATIVE 04/23/18 23:56 Antibody Screen Negative 04/23/18 23:56 BBK History Checked Patient has bt 04/23/18 23:56 - Hospital Course Hospital Course: This is an 82yo female with past medical history of HTN, CAD, a.fib (on coumadin ), OA, 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 She had CT AP that showed some constipation, but no acute abnormalities. Patient was evaluated by GI. Dr. Power recommended EGD. Patient refused EGD at this time. Patient will continue Buspar and home medications. INR was was to be elevated. Coumadin was placed on hold. Patient will be d/c back to [facility] and continue her home medications she was receiving there. Coumadin will need to be held for a couple more days. INR will be re-rechecked at the rehab. I spoke with the daughter, Marii at length, she reports they will plan for EGD as outpatient from [facility]. Patient has to continue 20 more days of Zyvox for VRE prothesis infection of R knee. Ortho did dressing change while patient was in house. - Date & Time of H&P Date of H&P: 04/24/18 Time of H&P: 07:00 Discharge Exam - Head Exam Head Exam: ATRAUMATIC, NORMAL INSPECTION, NORMOCEPHALIC - Eye Exam Eye Exam: EOMI, Normal appearance, PERRL Pupil Exam: NORMAL ACCOMODATION - ENT Exam ENT Exam: Mucous Membranes Dry - Neck Exam Neck exam: Full Rom - Respiratory Exam Respiratory Exam: Clear to PA & Lateral, NORMAL BREATHING PATTERN, UNREMARKABLE. absent: Decreased Breath Sounds, Rales, Rhonchi, Wheezes, Stridor - Cardiovascular Exam Cardiovascular Exam: REGULAR RHYTHM, RRR, +S1, +S2. absent: Gallop, Rubs, Systolic Murmur - GI/Abdominal Exam GI & Abdominal Exam: Normal Bowel Sounds, Soft, Unremarkable. absent: Mass, Rebound, Rigid, Tenderness - Extremities Exam Extremities exam: normal capillary refill, normal inspection, pedal pulses present Additional comments: RLE dressing in place- clean and dry - Neurological Exam Neurological exam: Alert, CN II-XII Intact, Oriented x3 - Psychiatric Exam Psychiatric exam: Depressed, Normal Affect - Skin Skin Exam: Dry, Normal Color, Warm Discharge Plan - Follow Up Plan Condition: STABLE Disposition: REHAB FACILITY/REHAB UNIT Additional Instructions: 1. Hold the Coumadin for 2 days. 2. Plan for EGD as outpatient Referrals: Emile Power MD [Staff Provider] - <Ajay Waller - Last Filed: 04/25/18 20:59> Provider - Provider Date of Admission: 04/24/18 02:16 Attending physician: Ajay Waller MD Hospital Course - Lab Results Lab Results: Most Recent Lab Values WBC 4.5 10^3/ul (4.5-11.0) D 04/25/18 06:30 RBC 2.94 10^6/uL (3.5-6.1) L 04/25/18 06:30 Hgb 8.3 g/dL (12.0-16.0) L 04/25/18 06:30 Hct 25.4 % (36.0-48.0) L 04/25/18 06:30 MCV 86.4 fl (80.0-105.0) 04/25/18 06:30 MCH 28.2 pg (25.0-35.0) 04/25/18 06:30 MCHC 32.7 g/dl (31.0-37.0) 04/25/18 06:30 RDW 15.8 % (11.5-14.5) H 04/25/18 06:30 Plt Count 113 10^3/uL (120.0-450.0) L 04/25/18 06:30 MPV 9.0 fl (7.0-11.0) 04/25/18 06:30 Gran % 68.9 % (50.0-68.0) H 04/23/18 23:21 Lymph % (Auto) 24.2 % (22.0-35.0) 04/23/18 23:21 Mills % (Auto) 6.5 % (1.0-6.0) H 04/23/18 23:21 Eos % (Auto) 0.3 % (1.5-5.0) L 04/23/18 23:21 Baso % (Auto) 0.1 % (0.0-3.0) 04/23/18 23:21 Gran # 4.70 (1.4-6.5) 04/23/18 23:21 Lymph # (Auto) 1.7 (1.2-3.4) 04/23/18 23:21 Mills # (Auto) 0.4 (0.1-0.6) 04/23/18 23:21 Eos # (Auto) 0.0 (0.0-0.7) 04/23/18 23:21 Baso # (Auto) 0.01 K/mm3 (0.0-2.0) 04/23/18 23:21 ESR 17 mm/hr (0.0-20.0) 04/25/18 11:35 PT 44.4 SECONDS (9.4-12.5) H 04/25/18 06:30 INR 3.76 H* 04/25/18 06:30 APTT 40.5 Seconds (25.1-36.5) H 04/25/18 06:30 Sodium 132 mmol/L (132-148) 04/25/18 06:30 Potassium 3.8 mmol/L (3.6-5.0) 04/25/18 06:30 Chloride 98 mmol/L (98-107) 04/25/18 06:30 Carbon Dioxide 27 mmol/L (21-33) 04/25/18 06:30 Anion Gap 11 (10-20) 04/25/18 06:30 BUN 20 mg/dL (7-21) 04/25/18 06:30 Creatinine 0.7 mg/dl (0.7-1.2) 04/25/18 06:30 Est GFR ( Amer) > 60 04/25/18 06:30 Est GFR (Non-Af Amer) > 60 04/25/18 06:30 Random Glucose 109 mg/dL (70-110) 04/25/18 06:30 Calcium 8.1 mg/dL (8.4-10.5) L 04/25/18 06:30 Phosphorus 2.8 mg/dL (2.5-4.5) 04/25/18 06:30 Magnesium 2.0 mg/dL (1.7-2.2) 04/25/18 06:30 Total Bilirubin 1.2 mg/dL (0.2-1.3) 04/25/18 06:30 AST 23 U/L (14-36) 04/25/18 06:30 ALT 26 U/L (7-56) 04/25/18 06:30 Alkaline Phosphatase 92 U/L (38-126) 04/25/18 06:30 Troponin I < 0.01 ng/mL 04/23/18 23:21 Total Protein 5.8 g/dL (5.8-8.3) 04/25/18 06:30 Albumin 2.9 g/dL (3.0-4.8) L 04/25/18 06:30 Globulin 2.8 gm/dL 04/25/18 06:30 Albumin/Globulin Ratio 1.0 (1.1-1.8) L 04/25/18 06:30 Digoxin 1.5 ng/mL (0.8-2.0) 04/24/18 08:05 Blood Type O NEGATIVE 04/23/18 23:56 Antibody Screen Negative 04/23/18 23:56 BBK History Checked Patient has bt 04/23/18 23:56 - Hospital Course Hospital Course: Pt seen and examined. I have reviewed the note of the medical device sales representative and agree with it. I have discussed the assessment and plan with the resident. I have reviewed the patient's labs and medications. Pt said she does not want to get an endoscopy. She was going to be discharged. Her daughter called me later and said her mother was suicidal. I have placed the pt on a 1 to 1 sister. Will get Psych evaluation. I spoke to Dr Power about the pt. If pt changes her mind will get endoscopy. She will be placed on Buspar. She will need to continue with Zyvox.
[2018-04-25] MEDS: Digoxin 125 mcg (0.125 mg) Tab PO SCH (09:21)
[2018-04-25] MEDS: POLYETHYLENE GLYCOL 3350 17 GM/Dose PACKET PO SCH ×3 (09:22→18:18)
[2018-04-25] MEDS ORDERED: POLYETHYLENE GLYCOL 3350 17 GM/Dose PACKET PO SCH (10:00)
--- NOTE | 2018-04-25 13:00 | CON ---
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 The patient has had these symptoms for at least the last 2 to 3 weeks. Her dry heaves go back to several months ago prior to her right knee replacement. Obstructive series performed in the last hospitalization showed no intestinal obstruction. The patient's symptoms actually improved markedly with return of appetite after being started on BuSpar 5 mg twice a day. This was not apparently continued when the patient was in subacute rehab. She states that she continues to have poor appetite as she does not like the food being served at the subacute rehab. PAST MEDICAL HISTORY: As above. Again, she has a history of atrial fibrillation, coronary artery disease, status post coronary artery stent placement, hypertension, right knee replacement complicated by hematoma of the right knee and infection of the right knee prosthesis requiring explantation and placement of an antibiotic spacer. PAST SURGICAL HISTORY: As above. She had right tibia repair in the 90s. SOCIAL HISTORY: She denies cigarette smoking or alcohol use. She is currently domiciled at [facility]. FAMILY HISTORY: Notable for heart disease. REVIEW OF SYSTEMS: A 14-point review of systems is positive for nausea, dry heaves, vomiting, and loss of appetite. MEDICATIONS AT HOME: Guaifenesin, warfarin, Zocor, Senokot, pantoprazole, Zofran, nystatin, miconazole, Zyvox, Lasix, fluticasone, famotidine, Lovenox, docusate, digoxin, Lipitor, atenolol, aspirin, albuterol inhaler and acetaminophen. PHYSICAL EXAMINATION: Elderly female, lying in bed, in no acute distress. Vital signs reveal temperature of 97.9, blood pressure of 118/53, heart rate 63. HEENT reveal sclerae to be white. Conjunctivae pink. Neck is supple. Chest reveals distant breath sounds. Heart exam reveals an irregularly irregular rate. Abdomen is soft, nontender. Extremities show right knee to be in a wrap. There is no pedal edema. LABORATORY DATA: Reveal PT of 42.8, INR 3.66, PTT of 37.3. Chemistries reveal chloride 94, BUN 25, creatinine 0.6, blood sugar of 113. AST, ALT, alk phos were all normal. CBC reveals hemoglobin 9.3, white blood cell count 6.8, platelet count 137,000. IMPRESSION: 1. An 82-year-old female with persistent nausea, dry heaves, intermittent vomiting, loss of appetite. Etiology is unclear. She did have significant improvement of her symptoms with BuSpar 5 mg twice a day last hospitalization with almost complete resolution of her symptoms, which have been ongoing for several months. 2. Anemia, probably secondary to recent infected right prosthesis of the knee. Stool for occult blood on last hospitalization was negative. 3. Coagulopathy, secondary to warfarin. RECOMMENDATIONS: 1. We will request a CT scan of the abdomen and pelvis with oral contrast only. 2. If her coagulopathy improves, we will tentatively schedule the patient for an upper endoscopy in the morning. Emile Power MD
[2018-04-25] MEDS: Potassium Chloride 10 MEQ in Dextrose 5%/0.45% NS 1,000 ML IV SCH (18:18)
--- NOTE | 2018-04-25 22:29 | PN ---
DATE: 04/25/2018 SUBJECTIVE: Shortly, the patient is an 82-year-old female with multiple medical problems including hypertension, coronary artery disease, AFib, osteoarthritis, right knee replacement and removal and also antibiotic spacer, came from [facility] for evaluation of nausea and vomiting. This bid writer is very familiar with this patient from the Transitional Care Unit when the patient presented to be depressed. Medical team raised concern about psychogenic self-induced vomiting, but this bid writer did not have that impression. Moreover, the patient is on antibiotics. The patient reported that she has no appetite and the patient reported that if food was brought from the home, she is able to hold it. At this time, medical team asked for reevaluation for possible depressive symptoms as well as possible suicidal ideation, which the patient seems to be expressed to her daughter, but the patient denied. The patient was seen and examined. The patient presented to be alert and oriented. The patient remembered this bid writer. The patient reported that she is frustrated with medical issues what she is going through. The patient reported that her daughters are not understanding and supportive of all of her medical issues and the patient reported that she feels upset over that fact. The patient reported that earlier today, the patient's daughter was screaming at the patient that she needs to eat and because the patient becomes weaker. The patient reported that she tried to explain to her daughter that she cannot eat, she is not able to hold the food because she does not like food which is in the hospital and she is not doing anything in order to induce vomit by herself. The patient reported that her daughter was not able to calm down and the patient said "I will just ." The patient reported that she never meant to kill herself whatsoever and these words were stated out of frustration. The patient adamantly denied any thoughts of harming herself or others. The patient reported that she has strong druze belief. The patient reported that she is praying often. The patient reported that she is frustrated again over her medical issues. Moreover, the patient said people have right to cry, people have right to feel frustrated. The patient denied hearing voices, denied seeing things. The patient reported that she sleeps through the night. The patient denied feeling anxious. The patient denied feeling of hopelessness or helplessness, has future oriented plans to go to subacute rehab and start feeling better. VITAL SIGNS: Stable. Temperature 98.1, pulse is 68, blood pressure 143/66, respirations 20, and oxygen saturation is 99. MEDICATIONS: Reviewed. The patient is on Tylenol, atenolol, Lipitor, BuSpar, digoxin, Pepcid, Lasix, Robitussin, Zyvox, Zofran, Protonix, MiraLax, and potassium chloride. LABORATORY DATA: Reviewed. Most recent was from today. MENTAL STATUS EXAMINATION: The patient presented to be alert, pleasant, cooperative. The patient's affect was tearful at times which is expected. The patient was happy that her daughter and ex- send her schroeder. Mood described as being "frustrated over my medical problems." Thought process was coherent and goal directed. Thought content: The patient denied visual, auditory, or tactile hallucinations. Denied paranoid ideation. The patient denied thoughts of harming herself or others. Denied intent and plan. Insight and judgment seem to be fair. Impulses are well controlled. IMPRESSION: Most likely, the patient has adjustment disorder with depressed and anxious mood. The patient does not have signs of major depressive disorder or anxiety, rule out mood disorder due to general medical condition. PLAN: Continue current management. Continue current medication. The patient expressed no concerns about her mood symptoms. The patient expressed no concerns about anxiety. The patient does not want to be on any medications. The patient reported that she has future oriented plans and she will do everything in order to start feeling better. The patient adamantly denied any intent or plan to kill herself. The patient said that she expressed thoughts to be out of frustration. The patient deemed to be not in any imminent danger to self or others. This bid writer will sign off again. Should you have any questions, give me a call back. Thank you very much for letting me to participate in the care of your patient. Ashely Klein MD
[2018-04-26] MEDS: Pantoprazole 40 mg EC Tab PO SCH (05:36)
[2018-04-26] MEDS: POLYETHYLENE GLYCOL 3350 17 GM/Dose PACKET PO SCH ×3 (10:00→17:24)
[2018-04-26] MEDS: Potassium Chloride 10 MEQ in Dextrose 5%/0.45% NS 1,000 ML IV SCH ×2 (10:01→23:33)
[2018-04-26] MEDS: Digoxin 125 mcg (0.125 mg) Tab PO SCH (10:14)
--- NOTE | 2018-04-27 00:11 | PN ---
DATE: 04/26/2018 HISTORY OF PRESENT ILLNESS: Ms. Segura is an 82-year-old female, came to the hospital with nausea and vomiting. She was in the rehab after knee surgery, right knee replacement. She has a history of hypertension, coronary artery disease, atrial fibrillation, on Coumadin. CT chest, abdomen and pelvis was unremarkable. Evaluated by GI, Dr. Power. EGD was planned. She was operated by Dr. Watson. She vomited twice since morning. She is not able to keep anything down. Vomited the medication, the morning doses. Denies any abdominal pain. No bleeding from any site. PAST MEDICAL HISTORY: Hypertension; coronary artery disease, status post PCI; atrial fibrillation, on Coumadin; osteoarthritis, right knee; status post knee replacement; placement of antibiotic spacer. PAST SURGICAL HISTORY: Right knee total replacement, removal of spacer, coronary artery stent placement. HOME MEDICATIONS: As per MAR. ALLERGIES: MULTIPLE, PENICILLIN, NITROGLYCERIN, BENADRYL. SOCIAL HISTORY: No history of alcohol abuse. No history of tobacco. Works with . FAMILY HISTORY: Positive for coronary artery disease. PERSONAL HISTORY: Nonsmoker. No history of alcohol abuse. REVIEW OF SYSTEMS: As per HPI. Rest of 12-point review of systems reviewed negative. PHYSICAL EXAMINATION: GENERAL: In mild distress due to nausea and vomiting. VITAL SIGNS: Temperature 98.7, heart rate 80 per minute, blood pressure 110/70, pulse ox is 98% on room air. HEENT: Pallor positive. NECK: No lymphadenopathy. CHEST: Air entry present and equal, bilateral. No added sounds. CARDIOVASCULAR: S1, S2 normal. No murmur. No gallop. ABDOMEN: Soft, nontender. No hepatosplenomegaly. EXTREMITIES: No edema. FARM CONSULTANT: Alert and oriented. No focal sensorimotor deficits. SKIN: No petechiae. No rash. SPINE: Nontender. LABORATORY DATA: White count 4.5, hemoglobin 8.3, hematocrit 25.4, platelet 113. Sodium 132, potassium 3.8, creatinine 0.7, magnesium 2. ASSESSMENT AND PLAN: Hypertension; coronary artery disease, status post PCI; atrial fibrillation, on Coumadin; osteoarthritis, right knee; status post knee replacement; placement of antibiotic spacer. Persistent nausea, vomiting. anemia Plan: We will give Zofran 4 mg IV every 6 hours scheduled, Protonix 40 mg daily. She is currently on Zyvox 600 mg p.o. b.i.d. We will continue that. Lasix 40 mg daily, Pepcid 40 mg p.o. at bedtime, digoxin 0.125 mg daily, Tylenol 650 every 4 hours p.r.n. INR supratherapeutic at 3.76. We will recheck PT/INR in the morning. Coumadin on hold. Monitor H/H. Brianna Pritchard MD MTDDav
[2018-04-27] MEDS: guaiFENesin 100 mg/5 ml Syrup UD PO PRN ×2 (06:02→21:26)
[2018-04-27] MEDS: Pantoprazole 40 mg EC Tab PO SCH (06:02)
[2018-04-27 06:30] LABS: BLOOD UREA NITROGEN 12 mg/dL (7-21); CALCIUM 8.1 mg/dL (8.4-10.5); GFR NON-AFRICAN AMERICAN > 60
[2018-04-27 06:31] LABS: INR 2.77; PROTHROMBIN TIME 32.5 SECONDS (9.4-12.5)
[2018-04-27 06:34] LABS: BASO # 0.02 K/mm3 (0.0-2.0); BASO % 0.3 % (0.0-3.0); EOS # 0.3 (0.0-0.7); EOS % 4.4 % (1.5-5.0); GRAN # 3.36 (1.4-6.5); HEMOGLOBIN 8.4 g/dL (12.0-16.0); LYMPH # 1.8 (1.2-3.4); MEAN CELL VOLUME 86.3 fl (80.0-105.0); MEAN CORPUSCULAR HEMOGLOBIN 28.8 pg (25.0-35.0); MEAN CORPUSCULAR HGB CONC 33.3 g/dl (31.0-37.0); MEAN PLATELET VOLUME 9.2 fl (7.0-11.0); MONO # 0.7 (0.1-0.6); MONO % 11.3 % (1.0-6.0); RBC 2.92 10^6/uL (3.5-6.1); RED CELL DISTRIBUTION WIDTH 15.6 % (11.5-14.5); WHITE BLOOD COUNT 6.1 10^3/ul (4.5-11.0)
--- NOTE | 2018-04-27 08:47 | CP.PCM.PN ---
Subjective - Date & Time of Evaluation Date of Evaluation: 04/27/18 Time of Evaluation: 08:43 - Subjective Subjective: Patient alert and awake. Patient's appears calm and comfortable. Denies any significant pain Afebrile WBC 6.1 R knee: Wound vac changed. Minimal active drainage. No areas of skin necrosis. No erythema. Midline incision site still gapped open but starting to close. New wound vac applied. Calf and thigh soft and nontender. NVI distally Cont abx Cont medical management Cont knee immbolizier with PWB Cont wound vac Objective - Vital Signs/Intake and Output Vital Signs (last 24 hours): Temp Pulse Resp BP Pulse Ox 98.4 F 87 18 141/78 98 04/27/18 08:00 04/27/18 08:00 04/27/18 08:00 04/27/18 08:00 04/27/18 08:00 - Medications Medications: Current Medications Acetaminophen (Tylenol 325mg Tab) 650 mg PO Q6H PRN PRN Reason: Pain, Mild (1-3) Atenolol (Tenormin) 25 mg PO BID [facility] Atorvastatin Calcium (Lipitor) 20 mg PO HS [facility] Last Admin: 04/26/18 21:23 Dose: 20 mg Buspirone HCl (Buspar) 5 mg PO BID [facility]; Protocol Last Admin: 04/26/18 18:03 Dose: Not Given Digoxin (Digoxin) 0.125 mg PO DAILY [facility] Last Admin: 04/26/18 10:14 Dose: 0.125 mg Famotidine (Pepcid) 40 mg PO HS [facility] Last Admin: 04/26/18 21:22 Dose: 40 mg Furosemide (Lasix) 40 mg PO DAILY [facility] Guaifenesin (Robitussin) 100 mg PO Q4H PRN PRN Reason: Cough Last Admin: 04/27/18 06:02 Dose: 100 mg Potassium Chloride 10 meq/ (Dextrose/Sodium Chloride) 1,005 mls @ 75 mls/hr IV .[id number] [facility] Last Admin: 04/26/18 23:33 Dose: 75 mls/hr Linezolid (Zyvox) 600 mg PO BID [facility]; Protocol Last Admin: 04/26/18 18:05 Dose: 600 mg Ondansetron HCl (Zofran Inj) 4 mg IVP Q6H [facility] Last Admin: 04/27/18 06:02 Dose: 4 mg Pantoprazole Sodium (Protonix Ec Tab) 40 mg PO 0600 [facility] Last Admin: 04/27/18 06:02 Dose: 40 mg Polyethylene Glycol (Miralax) 17 gm PO TID [facility] Last Admin: 04/26/18 17:24 Dose: Not Given - Labs Labs: 04/27/18 05:00 04/27/18 05:00 PT 32.5 SECONDS (9.4-12.5) H 04/27/18 05:00 INR 2.77 04/27/18 05:00 APTT 40.5 Seconds (25.1-36.5) H 04/25/18 06:30
[2018-04-27] MEDS: POLYETHYLENE GLYCOL 3350 17 GM/Dose PACKET PO SCH ×3 (09:18→17:41)
[2018-04-27] MEDS: Digoxin 125 mcg (0.125 mg) Tab PO SCH (09:27)
--- NOTE | 2018-04-27 14:25 | PN ---
DATE: 04/27/2018 SUBJECTIVE: She is comfortable in bed, in no acute distress. improved since yesterday. She is complaining of nausea, no vomiting. She is receiving Zofran [id number] every 6 hours that had held. She did not vomit after taking the medications. No knee pain. REVIEW OF SYSTEMS: As per HPI. Rest of 12-point review of systems reviewed negative. PHYSICAL EXAMINATION: GENERAL: Comfortable in bed, in no acute distress. VITAL SIGNS: Temperature 97.9, heart rate is 82 per minute, blood pressure 140/65, respiratory rate 16 per minute, oxygen saturation 97% on room air. HEENT: Pallor positive. NECK: No lymphadenopathy. CHEST: Air entry present and equal bilaterally. No added sounds. CARDIOVASCULAR: S1 and S2 normal. No murmur. No gallop. ABDOMEN: Soft, nontender. No hepatosplenomegaly. EXTREMITIES: No edema. SKIN: No petechia, no rash. SPINE: Nontender. LABORATORY DATA: White count 6.1, hemoglobin 8.4, hematocrit 25.2, and platelets 116. Sodium 132, potassium 3.7. Creatinine 0.5. MEDICATIONS: Tylenol 650 every 6 hours p.r.n., atenolol 25 mg p.o. b.i.d., Lipitor 20 mg daily, BuSpar, Pepcid 40 mg daily, digoxin 0.25 mg daily, Zyvox 600 mg p.o. b.i.d., Protonix, K riders. ASSESSMENT AND PLAN:: 1. Intractable nausea and vomiting. 2. Anemia. 3. Status post knee replacement, knee infection. 4. Coagulopathy. Coumadin is on hold. PT/INR 2.7. We will continue to hold Coumadin. EGD planned for tomorrow. Discussed with Dr. Powre. Continue Zofran [id number]. Currently on Zyvox for knee infection. we will continue IV fluids. Brianna Pricthard MD
[2018-04-27] MEDS: Potassium Chloride 10 MEQ in Dextrose 5%/0.45% NS 1,000 ML IV SCH (14:47)
--- NOTE | 2018-04-27 17:19 | PN ---
DATE: 04/27/2018 SUBJECTIVE: The patient is sitting up in a chair. She has not had any further nausea or vomiting. She denies any dry heaves. PHYSICAL EXAMINATION: VITAL SIGNS: Reveal temperature of 98.4, blood pressure 141/78, and heart rate of 87. HEENT: Reveal sclerae to be white. Conjunctivae pale. NECK: Supple. CHEST: Reveals lungs to be decreased in breath sounds. HEART: Reveals an irregular rate. ABDOMEN: Soft, nontender. EXTREMITIES: Show her right knee to be wrapped in an Armando bandage. She has a wound VAC in her right knee. LABORATORY DATA: Reveals hemoglobin of 8.4. BUN 12, creatinine 0.5. IMPRESSION: An 82-year-old female with; 1. Recurrent dry heaves, nausea, vomiting, poor appetite. 2. Anemia, most likely chronic disease. RECOMMENDATIONS: I will schedule the patient for an upper endoscopy for the morning. Emile Power MD
[2018-04-28] MEDS: Pantoprazole 40 mg EC Tab PO SCH ×2 (05:26→05:28)
[2018-04-28] MEDS: Potassium Chloride 10 MEQ in Dextrose 5%/0.45% NS 1,000 ML IV SCH ×2 (05:26→21:11)
[2018-04-28 08:12] LABS: INR 2.1; PROTHROMBIN TIME 24.5 SECONDS (9.4-12.5)
[2018-04-28 09:11] LABS: BASO # 0.02 K/mm3 (0.0-2.0); BASO % 0.4 % (0.0-3.0); EOS # 0.2 (0.0-0.7); EOS % 3.9 % (1.5-5.0); GRAN # 2.78 (1.4-6.5); GRAN % 51.1 % (50.0-68.0); LYMPH # 1.8 (1.2-3.4); LYMPH % 32.6 % (22.0-35.0); MEAN CELL VOLUME 85.6 fl (80.0-105.0); MEAN CORPUSCULAR HEMOGLOBIN 28.9 pg (25.0-35.0); MEAN CORPUSCULAR HGB CONC 33.8 g/dl (31.0-37.0); MEAN PLATELET VOLUME 9.1 fl (7.0-11.0); MONO # 0.7 (0.1-0.6); RBC 2.77 10^6/uL (3.5-6.1); RED CELL DISTRIBUTION WIDTH 15.6 % (11.5-14.5); WHITE BLOOD COUNT 5.4 10^3/ul (4.5-11.0)
[2018-04-28 09:30] LABS: ALBUMIN 2.7 g/dL (3.0-4.8); ALT/SGPT 28 U/L (7-56); AST/SGOT 16 U/L (14-36); BLOOD UREA NITROGEN 8 mg/dL (7-21); CALCIUM 8.2 mg/dL (8.4-10.5); GFR NON-AFRICAN AMERICAN > 60
[2018-04-28] MEDS: Digoxin 125 mcg (0.125 mg) Tab PO SCH (09:30)
[2018-04-28] MEDS ORDERED: Propofol 10 mg/ml Inj (20 ML) ONE (11:09)
[2018-04-28] MEDS ORDERED: Midazolam 2 MG/2 ML VIAL ONE (11:09)
[2018-04-28] MEDS ORDERED: Etomidate 20 mg/10ml Inj IV ONE (11:10)
[2018-04-28] MEDS ORDERED: Sodium Chloride 0.9% 1,000 ML IV SCH (11:45)
--- NOTE | 2018-04-28 11:46 | RAD ---
Date of service: 04/28/2018 HISTORY: Preop COMPARISON: 04/14/2018 FINDINGS: LUNGS: No active pulmonary disease. PLEURA: No significant pleural effusion identified, no pneumothorax apparent. CARDIOVASCULAR: Atherosclerotic calcifications identified primarily aortic arch. Stable cardiomegaly. OSSEOUS STRUCTURES: No significant abnormalities. VISUALIZED UPPER ABDOMEN: Normal. OTHER FINDINGS: Removal of support apparatus since the prior study: PICC line. IMPRESSION: No active disease. No significant interval change compared to the prior examination(s).
[2018-04-28] MEDS: POLYETHYLENE GLYCOL 3350 17 GM/Dose PACKET PO SCH (13:43)
--- NOTE | 2018-04-28 16:10 | CP.PCM.PN ---
<Valentín Alvarado - Last Filed: 04/28/18 18:07> Subjective - Date & Time of Evaluation Date of Evaluation: 04/28/18 Time of Evaluation: 07:08 - Subjective Subjective: Valentín Alvarado PGY2 IM Progress Note for Dr. Waller Patient was seen and examined at bedside. She denies any new nausea/vomiting, but her knee is still painful. She is planned for EGD with Dr. Power today. Objective - Vital Signs/Intake and Output Vital Signs (last 24 hours): Temp Pulse Resp BP Pulse Ox 97.5 F L 77 18 137/67 96 04/28/18 14:00 04/28/18 14:00 04/28/18 14:00 04/28/18 14:00 04/28/18 14:00 - Medications Medications: Current Medications Acetaminophen (Tylenol 325mg Tab) 650 mg PO Q6H PRN PRN Reason: Pain, Mild (1-3) Atenolol (Tenormin) 25 mg PO BID [facility] Atorvastatin Calcium (Lipitor) 20 mg PO HS [facility] Last Admin: 04/27/18 21:26 Dose: 20 mg Buspirone HCl (Buspar) 2.5 mg PO HS [facility]; Protocol Digoxin (Digoxin) 0.125 mg PO DAILY [facility] Last Admin: 04/28/18 09:30 Dose: 0.125 mg Famotidine (Pepcid) 40 mg PO HS [facility] Last Admin: 04/27/18 21:26 Dose: 40 mg Furosemide (Lasix) 40 mg PO DAILY [facility] Guaifenesin (Robitussin) 100 mg PO Q4H PRN PRN Reason: Cough Last Admin: 04/27/18 06:02 Dose: 100 mg Potassium Chloride 10 meq/ (Dextrose/Sodium Chloride) 1,005 mls @ 75 mls/hr IV .[id number] [facility] Last Admin: 04/28/18 05:26 Dose: 75 mls/hr Sodium Chloride (Sodium Chloride 0.9%) 1,000 mls @ 100 mls/hr IV .Q10H [facility] Linezolid (Zyvox) 600 mg PO BID [facility]; Protocol Last Admin: 04/28/18 09:30 Dose: 600 mg Ondansetron HCl (Zofran Inj) 4 mg IVP Q6H [facility] Last Admin: 04/28/18 13:44 Dose: Not Given Pantoprazole Sodium (Protonix Ec Tab) 40 mg PO 0600 [facility] Last Admin: 04/28/18 05:28 Dose: Not Given Polyethylene Glycol (Miralax) 17 gm PO TID [facility] Last Admin: 04/28/18 13:43 Dose: Not Given - Labs Labs: 04/28/18 08:44 04/28/18 08:45 PT 24.5 SECONDS (9.4-12.5) H 04/28/18 08:00 INR 2.10 04/28/18 08:00 APTT 40.5 Seconds (25.1-36.5) H 04/25/18 06:30 - Constitutional Appears: Well, Non-toxic, No Acute Distress - Head Exam Head Exam: NORMAL INSPECTION - Eye Exam Eye Exam: EOMI, Normal appearance, PERRL - ENT Exam ENT Exam: Mucous Membranes Dry - Neck Exam Neck Exam: Normal Inspection - Respiratory Exam Respiratory Exam: NORMAL BREATHING PATTERN. absent: Rales, Rhonchi, Wheezes, Respiratory Distress - Cardiovascular Exam Cardiovascular Exam: RRR, +S1, +S2 - GI/Abdominal Exam GI & Abdominal Exam: Soft. absent: Distended, Tenderness - Extremities Exam Extremities Exam: absent: Full ROM (right leg ROM limited by pain) Additional comments: right knee wrapped in immbolizer wound vac in place - Back Exam Back Exam: NORMAL INSPECTION - Neurological Exam Neurological Exam: Alert, Awake, Oriented x3 - Psychiatric Exam Psychiatric exam: Normal Mood - Skin Skin Exam: Normal Color Assessment and Plan - Assessment and Plan (Free Text) Assessment: 82-year-old female with a PMH of A. 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 - EGD with Dr. Power today - Discharge planning pending Rec from Ortho - PT eval - Continue Zyvox - Continue home meds - Wound care as appropriate - Further recs per Dr. Waller Case was reviewed and discussed with attending, Dr. Christin Alvarado <Ajay Waller - Last Filed: 04/28/18 20:33> Objective - Vital Signs/Intake and Output Vital Signs (last 24 hours): Temp Pulse Resp BP Pulse Ox 97.5 F L 77 18 137/67 96 04/28/18 14:00 04/28/18 14:00 04/28/18 14:00 04/28/18 14:00 04/28/18 14:00 - Medications Medications: Current Medications Acetaminophen (Tylenol 325mg Tab) 650 mg PO Q6H PRN PRN Reason: Pain, Mild (1-3) Last Admin: 04/28/18 19:29 Dose: 650 mg Atenolol (Tenormin) 25 mg PO BID [facility] Atorvastatin Calcium (Lipitor) 20 mg PO HS [facility] Last Admin: 04/27/18 21:26 Dose: 20 mg Buspirone HCl (Buspar) 2.5 mg PO HS [facility]; Protocol Digoxin (Digoxin) 0.125 mg PO DAILY [facility] Last Admin: 04/28/18 09:30 Dose: 0.125 mg Famotidine (Pepcid) 40 mg PO HS [facility] Last Admin: 04/27/18 21:26 Dose: 40 mg Furosemide (Lasix) 40 mg PO DAILY [facility] Guaifenesin (Robitussin) 100 mg PO Q4H PRN PRN Reason: Cough Last Admin: 04/27/18 06:02 Dose: 100 mg Potassium Chloride 10 meq/ (Dextrose/Sodium Chloride) 1,005 mls @ 75 mls/hr IV .[id number] [facility] Last Admin: 04/28/18 05:26 Dose: 75 mls/hr Sodium Chloride (Sodium Chloride 0.9%) 1,000 mls @ 100 mls/hr IV .Q10H [facility] Linezolid (Zyvox) 600 mg PO BID [facility]; Protocol Last Admin: 04/28/18 17:29 Dose: 600 mg Ondansetron HCl (Zofran Inj) 4 mg IVP Q6H [facility] Last Admin: 04/28/18 13:44 Dose: Not Given Pantoprazole Sodium (Protonix Ec Tab) 40 mg PO 0600 [facility] Last Admin: 04/28/18 05:28 Dose: Not Given Polyethylene Glycol (Miralax) 17 gm PO TID [facility] Last Admin: 04/28/18 13:43 Dose: Not Given - Labs Labs: 04/28/18 08:44 04/28/18 08:45 PT 24.5 SECONDS (9.4-12.5) H 04/28/18 08:00 INR 2.10 04/28/18 08:00 APTT 40.5 Seconds (25.1-36.5) H 04/25/18 06:30 Assessment and Plan - Assessment and Plan (Free Text) Assessment: Pt seen and examined. I have reviewed the note of the medical asst and agree with it. I have discussed the assessment and plan with the resident. I have reviewed the patient's labs and medications. Pt with nausea and vomiting. Pt is getting endoscopy today. If negative she can be discharged. I think she may have coughing spells and then has vomiting. I have not seen her vomit during this admission, at the [facility] and on the last admission. She is on Zyvox for her R knee i nfection. She is on Coumadin for A fib.
[2018-04-29] MEDS: Pantoprazole 40 mg EC Tab PO SCH (05:51)
[2018-04-29 07:43] LABS: INR 1.53; PROTHROMBIN TIME 17.7 SECONDS (9.4-12.5)
[2018-04-29] MEDS ORDERED: Iron Sucrose 100 mg/5 ml Inj IVP ONE (09:03)
[2018-04-29 09:21] LABS: IRON 71 ug/dL (45-180)
[2018-04-29 09:30] LABS: % IRON SATURATION 37 % (20-55); TOTAL IRON BINDING CAPACITY 192 ug/dL (265-497)
--- NOTE | 2018-04-29 09:38 | CP.PCM.PN ---
<Gloria Whiteside - Last Filed: 04/29/18 13:45> Subjective - Date & Time of Evaluation Date of Evaluation: 04/29/18 Time of Evaluation: 07:40 - Subjective Subjective: Gloria Whiteside DO, PGY-2: Progress Note for Dr. Frias Patient was seen and examined at bedside. Patient denies any nausea, vomiting, fever, or chills. Case was discussed with social sciences lecturer in regards to placement. EGD was noted to be normal. No adverse events noted overnight. Objective - Vital Signs/Intake and Output Vital Signs (last 24 hours): Temp Pulse Resp BP Pulse Ox 97.9 F 85 18 131/64 98 04/29/18 08:04 04/29/18 08:04 04/29/18 08:04 04/29/18 08:04 04/29/18 08:04 Intake and Output: 04/29/18 04/29/18 06:59 18:59 Intake Total 680 Output Total 110 Balance 570 - Medications Medications: Current Medications Acetaminophen (Tylenol 325mg Tab) 650 mg PO Q6H PRN PRN Reason: Pain, Mild (1-3) Last Admin: 04/28/18 19:29 Dose: 650 mg Atenolol (Tenormin) 25 mg PO BID [facility] Atorvastatin Calcium (Lipitor) 20 mg PO HS [facility] Last Admin: 04/28/18 21:11 Dose: 20 mg Buspirone HCl (Buspar) 2.5 mg PO HS [facility]; Protocol Last Admin: 04/28/18 21:11 Dose: Not Given Digoxin (Digoxin) 0.125 mg PO DAILY [facility] Last Admin: 04/28/18 09:30 Dose: 0.125 mg Famotidine (Pepcid) 40 mg PO HS [facility] Last Admin: 04/28/18 21:12 Dose: 40 mg Furosemide (Lasix) 40 mg PO DAILY [facility] Guaifenesin (Robitussin) 100 mg PO Q4H PRN PRN Reason: Cough Last Admin: 04/27/18 06:02 Dose: 100 mg Iron Sucrose 200 mg/ Sodium (Chloride) 110 mls @ 110 mls/hr IVPB ONCE ONE Stop: 04/29/18 10:14 Linezolid (Zyvox) 600 mg PO BID [facility]; Protocol Last Admin: 04/28/18 17:29 Dose: 600 mg Ondansetron HCl (Zofran Inj) 4 mg IVP Q6H [facility] Last Admin: 04/29/18 05:18 Dose: Not Given Pantoprazole Sodium (Protonix Ec Tab) 40 mg PO 0600 [facility] Last Admin: 04/29/18 05:51 Dose: 40 mg Polyethylene Glycol (Miralax) 17 gm PO TID [facility] Last Admin: 04/28/18 13:43 Dose: Not Given - Labs Labs: 04/28/18 08:44 04/28/18 08:45 PT 17.7 SECONDS (9.4-12.5) H 04/29/18 07:20 INR 1.53 04/29/18 07:20 APTT 40.5 Seconds (25.1-36.5) H 04/25/18 06:30 - Constitutional Appears: Well, Non-toxic - Head Exam Head Exam: ATRAUMATIC, NORMOCEPHALIC - Eye Exam Eye Exam: EOMI, Normal appearance - ENT Exam ENT Exam: Mucous Membranes Moist - Neck Exam Neck Exam: Normal Inspection - Respiratory Exam Respiratory Exam: Clear to Ausculation Bilateral, NORMAL BREATHING PATTERN. absent: Accessory Muscle Use - Cardiovascular Exam Cardiovascular Exam: RRR, +S1, +S2 - GI/Abdominal Exam GI & Abdominal Exam: Soft, Normal Bowel Sounds - Extremities Exam Extremities Exam: Normal Inspection. absent: Calf Tenderness - Back Exam Back Exam: NORMAL INSPECTION. absent: CVA tenderness (L), CVA tenderness (R) - Neurological Exam Neurological Exam: Alert, Awake, Oriented x3 - Psychiatric Exam Psychiatric exam: Normal Affect, Normal Mood - Skin Skin Exam: Dry, Intact, Normal Color, Warm Additional comments: wound vacuum intact and in place Assessment and Plan - Assessment and Plan (Free Text) Assessment: 82-year-old female with a PMH of A. 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 - EGD showed erythematous mucosa in the antrum - GI recommends low fiber diet - Discharge planning pending, spoke with social sciences lecturer in regards to the wound vacuum - PT recommends JAKE - Continue Zyvox 600 mg BID - Continue home meds - Wound care as appropriate - Further recs per Dr. Waller Case was reviewed and discussed with attending physician, Dr. Waller <Ajay Waller - Last Filed: 04/29/18 15:43> Objective - Vital Signs/Intake and Output Vital Signs (last 24 hours): Temp Pulse Resp BP Pulse Ox 97.9 F 85 18 131/64 98 04/29/18 08:04 04/29/18 08:04 04/29/18 08:04 04/29/18 08:04 04/29/18 08:04 Intake and Output: 04/29/18 04/29/18 06:59 18:59 Intake Total 680 Output Total 110 Balance 570 - Medications Medications: Current Medications Acetaminophen (Tylenol 325mg Tab) 650 mg PO Q6H PRN PRN Reason: Pain, Mild (1-3) Last Admin: 04/29/18 10:27 Dose: 650 mg Atenolol (Tenormin) 25 mg PO BID [facility] Atorvastatin Calcium (Lipitor) 20 mg PO HS [facility] Last Admin: 04/28/18 21:11 Dose: 20 mg Buspirone HCl (Buspar) 2.5 mg PO HS [facility]; Protocol Last Admin: 04/28/18 21:11 Dose: Not Given Digoxin (Digoxin) 0.125 mg PO DAILY [facility] Last Admin: 04/29/18 10:25 Dose: 0.125 mg Famotidine (Pepcid) 40 mg PO HS [facility] Last Admin: 04/28/18 21:12 Dose: 40 mg Furosemide (Lasix) 40 mg PO DAILY [facility] Guaifenesin (Robitussin) 100 mg PO Q4H PRN PRN Reason: Cough Last Admin: 04/27/18 06:02 Dose: 100 mg Linezolid (Zyvox) 600 mg PO BID [facility]; Protocol Last Admin: 04/29/18 10:25 Dose: 600 mg Ondansetron HCl (Zofran Inj) 4 mg IVP Q6H [facility] Last Admin: 04/29/18 11:17 Dose: Not Given Pantoprazole Sodium (Protonix Ec Tab) 40 mg PO 0600 [facility] Last Admin: 04/29/18 05:51 Dose: 40 mg Polyethylene Glycol (Miralax) 17 gm PO TID [facility] Last Admin: 04/29/18 10:27 Dose: 17 gm - Labs Labs: 04/28/18 08:44 04/28/18 08:45 PT 17.7 SECONDS (9.4-12.5) H 10/23/18 07:20 INR 1.53 04/29/18 07:20 APTT 40.5 Seconds (25.1-36.5) H 04/25/18 06:30 Assessment and Plan - Assessment and Plan (Free Text) Assessment: Pt seen and examined. I have reviewed the note of the medical records receptionist and agree with it. I have discussed the assessment and plan with the resident. I have reviewed the patient's labs and medications. Pt with N/V that has improved. She had an endoscopy that I reviewed. She will be continued with Zyvox. She will go back to [facility]. She has not pain but has not been able to participate in PT much due to being in the hospital.
[2018-04-29] MEDS: Digoxin 125 mcg (0.125 mg) Tab PO SCH (10:25)
[2018-04-29] MEDS: POLYETHYLENE GLYCOL 3350 17 GM/Dose PACKET PO SCH ×3 (10:27→18:04)
[2018-04-29] MEDS: guaiFENesin 100 mg/5 ml Syrup UD PO PRN (23:24)
[2018-04-30 07:36] LABS: HEMOGLOBIN 7.5 g/dL (12.0-16.0); MEAN CELL VOLUME 85.4 fl (80.0-105.0); MEAN CORPUSCULAR HEMOGLOBIN 28.8 pg (25.0-35.0); MEAN CORPUSCULAR HGB CONC 33.8 g/dl (31.0-37.0); MEAN PLATELET VOLUME 9.2 fl (7.0-11.0); RBC 2.6 10^6/uL (3.5-6.1); RED CELL DISTRIBUTION WIDTH 15.9 % (11.5-14.5); WHITE BLOOD COUNT 4.9 10^3/ul (4.5-11.0)
[2018-04-30] MEDS: Digoxin 125 mcg (0.125 mg) Tab PO SCH (09:05)
--- NOTE | 2018-04-30 09:53 | CP.PCM.PN ---
Subjective - Date & Time of Evaluation Date of Evaluation: 04/30/18 Time of Evaluation: 09:43 - Subjective Subjective: Patient Alert and awake. Sitting up in bed. Patient's hgb has been trending down. Plan to transfuse 2 units of PRBC's today per medicine Afebrile Hgb 7.5 R knee: wound vac changed. Proximal incision site closed and intact and dry. T here is no erythema about the incision site. The distal part of the incision site is closed and intact but moist. The middle aspect of the incision site has minimal serosanguineous drainage with still gapping of this part of the incision. There are no areas of skin necrosis. No significant changes since Saturday. A new wound vac was applied. Thigh and calf are soft and nontender. s/p explant of infected R TKA Cont PO Zyvox Recheck labs in am At this time patient is scheduled to go to [facility] in [place]. A [employer] wound vac will be at this facility. Patient will be hooked up to the wound vac once patient arrives at the facility. No dressing changes are needed. Will do dressing changes Saturday 05/[address] Watson's office. Discussed the plan with patient and her daughter. Cont PO antibiotics Cont PWB, NO ROM, continue knee immobilizer Discussed above with Dr. Watson, agrees with above. Objective - Vital Signs/Intake and Output Vital Signs (last 24 hours): Temp Pulse Resp BP Pulse Ox 97.8 F 90 20 150/66 97 04/29/18 22:55 04/29/18 22:55 04/29/18 22:55 04/29/18 22:55 04/29/18 22:55 - Medications Medications: Current Medications Acetaminophen (Tylenol 325mg Tab) 650 mg PO Q6H PRN PRN Reason: Pain, Mild (1-3) Last Admin: 04/29/18 10:27 Dose: 650 mg Atenolol (Tenormin) 25 mg PO BID [facility] Atorvastatin Calcium (Lipitor) 20 mg PO HS [facility] Last Admin: 04/29/18 21:32 Dose: 20 mg Buspirone HCl (Buspar) 2.5 mg PO HS [facility]; Protocol Last Admin: 04/28/18 21:11 Dose: Not Given Digoxin (Digoxin) 0.125 mg PO DAILY [facility] Last Admin: 04/30/18 09:05 Dose: 0.125 mg Famotidine (Pepcid) 40 mg PO HS [facility] Last Admin: 04/29/18 21:32 Dose: 40 mg Furosemide (Lasix) 40 mg PO DAILY [facility] Guaifenesin (Robitussin) 100 mg PO Q4H PRN PRN Reason: Cough Last Admin: 04/29/18 23:24 Dose: 100 mg Linezolid (Zyvox) 600 mg PO BID [facility]; Protocol Last Admin: 04/30/18 09:05 Dose: 600 mg Ondansetron HCl (Zofran Inj) 4 mg IVP Q6H [facility] Last Admin: 04/29/18 18:04 Dose: Not Given Pantoprazole Sodium (Protonix Ec Tab) 40 mg PO 0600 [facility] Last Admin: 04/29/18 05:51 Dose: 40 mg Polyethylene Glycol (Miralax) 17 gm PO TID [facility] Last Admin: 04/29/18 18:04 Dose: Not Given - Labs Labs: 04/30/18 07:00 04/28/18 08:45 PT 17.7 SECONDS (9.4-12.5) H 04/29/18 07:20 INR 1.53 04/29/18 07:20 APTT 40.5 Seconds (25.1-36.5) H 04/25/18 06:30
[2018-04-30] MEDS: POLYETHYLENE GLYCOL 3350 17 GM/Dose PACKET PO SCH ×3 (10:00→18:13)
--- NOTE | 2018-04-30 11:27 | CP.PCM.PN ---
Subjective - Date & Time of Evaluation Date of Evaluation: 04/30/18 Time of Evaluation: 14:20 - Subjective Subjective: Gloria Whiteside DO, PGY-2: Progress Note for Dr. Waller Patient was seen and examined at bedside. She denies any chest pain, dyspnea, pa lpitations, nausea, vomiting, blood per rectum or hematochezia. She reports not sleeping well last night. Nurse reports patient hemoglobin is low and that patient took off wound vacuum at 5:00 AM today. Will transfuse 2 units. Objective - Vital Signs/Intake and Output Vital Signs (last 24 hours): Temp Pulse Resp BP Pulse Ox 97.8 F 90 20 150/66 97 04/29/18 22:55 04/29/18 22:55 04/29/18 22:55 04/29/18 22:55 04/29/18 22:55 - Medications Medications: Current Medications Acetaminophen (Tylenol 325mg Tab) 650 mg PO Q6H PRN PRN Reason: Pain, Mild (1-3) Last Admin: 04/29/18 10:27 Dose: 650 mg Atenolol (Tenormin) 25 mg PO BID [facility] Atorvastatin Calcium (Lipitor) 20 mg PO HS [facility] Last Admin: 04/29/18 21:32 Dose: 20 mg Buspirone HCl (Buspar) 2.5 mg PO HS [facility]; Protocol Last Admin: 04/28/18 21:11 Dose: Not Given Digoxin (Digoxin) 0.125 mg PO DAILY [facility] Last Admin: 04/30/18 09:05 Dose: 0.125 mg Famotidine (Pepcid) 40 mg PO HS [facility] Last Admin: 04/29/18 21:32 Dose: 40 mg Furosemide (Lasix) 40 mg PO DAILY [facility] Furosemide (Lasix) 40 mg IVP ONCE ONE Stop: 04/30/18 16:01 Guaifenesin (Robitussin) 100 mg PO Q4H PRN PRN Reason: Cough Last Admin: 04/29/18 23:24 Dose: 100 mg Linezolid (Zyvox) 600 mg PO BID [facility]; Protocol Last Admin: 04/30/18 09:05 Dose: 600 mg Ondansetron HCl (Zofran Inj) 4 mg IVP Q6H [facility] Last Admin: 04/29/18 18:04 Dose: Not Given Pantoprazole Sodium (Protonix Ec Tab) 40 mg PO 0600 [facility] Last Admin: 04/29/18 05:51 Dose: 40 mg Polyethylene Glycol (Miralax) 17 gm PO TID [facility] Last Admin: 04/29/18 18:04 Dose: Not Given - Labs Labs: 04/30/18 07:00 04/28/18 08:45 PT 17.7 SECONDS (9.4-12.5) H 04/29/18 07:20 INR 1.53 04/29/18 07:20 APTT 40.5 Seconds (25.1-36.5) H 04/25/18 06:30 - Constitutional Appears: Non-toxic, No Acute Distress - Head Exam Head Exam: ATRAUMATIC, NORMOCEPHALIC - Eye Exam Additional comments: left lid closed - ENT Exam ENT Exam: Mucous Membranes Moist - Neck Exam Additional comments: JVD - Respiratory Exam Respiratory Exam: Rales (left sided), NORMAL BREATHING PATTERN. absent: Accessory Muscle Use - Cardiovascular Exam Cardiovascular Exam: RRR, +S1, +S2 - GI/Abdominal Exam GI & Abdominal Exam: Soft, Normal Bowel Sounds - Neurological Exam Neurological Exam: Alert, Awake, Oriented x3 - Psychiatric Exam Psychiatric exam: Normal Affect, Normal Mood - Skin Skin Exam: Dry, Intact, Normal Color, Warm Assessment and Plan - Assessment and Plan (Free Text) Assessment: 82-year-old female with a PMH of A. 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 - EGD showed erythematous mucosa in the antrum - Will restart Coumadin - GI recommends low fiber diet - PT recommends JAKE - Continue Zyvox 600 mg BID needs 16 more days for VRE in right joint - Patient to receive 2 units of PRBCs; will repeat CBC in the AM - Appreciate orthopedic recommendations; new wound vacuumed placed today Case was reviewed and discussed with attending physician, Dr. Waller
[2018-05-01 03:01] VITALS: RESP 18
[2018-05-01] MEDS: Pantoprazole 40 mg EC Tab PO SCH (06:21)
[2018-05-01 07:02] LABS: INR 1.28; PROTHROMBIN TIME 14.8 SECONDS (9.4-12.5)
[2018-05-01 07:15] LABS: MEAN CELL VOLUME 85.1 fl (80.0-105.0); MEAN CORPUSCULAR HEMOGLOBIN 28.4 pg (25.0-35.0); MEAN CORPUSCULAR HGB CONC 33.3 g/dl (31.0-37.0); RBC 3.56 10^6/uL (3.5-6.1); RED CELL DISTRIBUTION WIDTH 15.2 % (11.5-14.5); WHITE BLOOD COUNT 5.2 10^3/ul (4.5-11.0)
[2018-05-01 07:20] LABS: HEMOGLOBIN 10.1 g/dL (12.0-16.0)
[2018-05-01 07:30] LABS: ALBUMIN 2.9 g/dL (3.0-4.8); ALT/SGPT 23 U/L (7-56); AST/SGOT 17 U/L (14-36); BLOOD UREA NITROGEN 15 mg/dL (7-21); CALCIUM 8.1 mg/dL (8.4-10.5); GFR NON-AFRICAN AMERICAN > 60
[2018-05-01 08:57] VITALS: BP 153/67; PULSE 92; TEMP 98; O2SAT 95
--- NOTE | 2018-05-01 09:44 | CP.PCM.DIS ---
<Gloria Whiteside - Last Filed: 05/01/18 15:58> Provider - Provider Date of Admission: 04/24/18 02:16 Attending physician: Ajay Waller MD Consults: 82 year old female with a Time Spent in preparation of Discharge (in minutes): 45 Hospital Course - Lab Results Lab Results: Most Recent Lab Values WBC 5.2 10^3/ul (4.5-11.0) 05/01/18 06:30 RBC 3.56 10^6/uL (3.5-6.1) 05/01/18 06:30 Hgb 10.1 g/dL (12.0-16.0) L D 05/01/18 06:30 Hct 30.3 % (36.0-48.0) L 05/01/18 06:30 MCV 85.1 fl (80.0-105.0) 05/01/18 06:30 MCH 28.4 pg (25.0-35.0) 05/01/18 06:30 MCHC 33.3 g/dl (31.0-37.0) 05/01/18 06:30 RDW 15.2 % (11.5-14.5) H 05/01/18 06:30 Plt Count 90 10^3/uL (120.0-450.0) L 05/01/18 06:30 MPV 9.0 fl (7.0-11.0) 05/01/18 06:30 Gran % 51.1 % (50.0-68.0) 04/28/18 08:44 Lymph % (Auto) 32.6 % (22.0-35.0) 04/28/18 08:44 [place] % (Auto) 12.0 % (1.0-6.0) H 04/28/18 08:44 Eos % (Auto) 3.9 % (1.5-5.0) 04/28/18 08:44 Baso % (Auto) 0.4 % (0.0-3.0) 04/28/18 08:44 Gran # 2.78 (1.4-6.5) 04/28/18 08:44 Lymph # (Auto) 1.8 (1.2-3.4) 04/28/18 08:44 [place] # (Auto) 0.7 (0.1-0.6) H 04/28/18 08:44 Eos # (Auto) 0.2 (0.0-0.7) 04/28/18 08:44 Baso # (Auto) 0.02 K/mm3 (0.0-2.0) 04/28/18 08:44 ESR 17 mm/hr (0.0-20.0) 04/25/18 11:35 PT 14.8 SECONDS (9.4-12.5) H 05/01/18 06:30 INR 1.28 05/01/18 06:30 APTT 40.5 Seconds (25.1-36.5) H 04/25/18 06:30 Sodium 133 mmol/L (132-148) 05/01/18 06:30 Potassium 3.5 mmol/L (3.6-5.0) L 05/01/18 06:30 Chloride 96 mmol/L (98-107) L 05/01/18 06:30 Carbon Dioxide 29 mmol/L (21-33) 05/01/18 06:30 Anion Gap 11 (10-20) 05/01/18 06:30 BUN 15 mg/dL (7-21) 05/01/18 06:30 Creatinine 0.6 mg/dl (0.7-1.2) L 05/01/18 06:30 Est GFR ( Amer) > 60 05/01/18 06:30 Est GFR (Non-Af Amer) > 60 05/01/18 06:30 Random Glucose 87 mg/dL (70-110) 05/01/18 06:30 Calcium 8.1 mg/dL (8.4-10.5) L 05/01/18 06:30 Phosphorus 2.8 mg/dL (2.5-4.5) 04/25/18 06:30 Magnesium 1.7 mg/dL (1.7-2.2) 05/01/18 06:30 Iron 71 ug/dL (45-180) 04/29/18 09:00 TIBC 192 ug/dL (265-497) L 04/29/18 09:00 % Saturation 37 % (20-55) 04/29/18 09:00 Ferritin 360.0 ng/mL 04/29/18 09:00 Total Bilirubin 2.9 mg/dL (0.2-1.3) H 05/01/18 06:30 AST 17 U/L (14-36) 05/01/18 06:30 ALT 23 U/L (7-56) 05/01/18 06:30 Alkaline Phosphatase 90 U/L (38-126) 05/01/18 06:30 Troponin I < 0.01 ng/mL 04/23/18 23:21 C-Reactive Prot, Quant 23.2 mg/L (<8.0) H 04/25/18 11:35 Total Protein 5.7 g/dL (5.8-8.3) L 05/01/18 06:30 Albumin 2.9 g/dL (3.0-4.8) L 05/01/18 06:30 Globulin 2.8 gm/dL 05/01/18 06:30 Albumin/Globulin Ratio 1.0 (1.1-1.8) L 05/01/18 06:30 Digoxin 1.5 ng/mL (0.8-2.0) 04/24/18 08:05 Blood Type O NEGATIVE 04/30/18 07:53 Antibody Screen Negative 04/30/18 07:53 Crossmatch See Detail 04/30/18 07:53 BBK History Checked Patient has bt 04/30/18 07:53 - Hospital Course Hospital Course: This is an 82yo female with past medical history of HTN, CAD, a.fib (on coumadin), OA, R knee replacement s/p removal and antibiotic spacer (+VRE) who came to ED from [facility] for nausea and vomiting. She had CT AP that showed some constipation, but no acute abnormalities. Patient was evaluated by GI. Dr. Power recommended EGD which showed erythematous antrum. Orthopedic was consulted and placed a new wound vacuum on the patient. The patient was also noted to be markedly anemic and thus transfused 2 units of PRBCs the day before discharge. The patient will remain on Linezolid for the VRE in the right knee. She will follow up with Dr. Watson this coming Saturday. She was discharged to [facility] in [place]. - Date & Time of H&P Date of H&P: 05/01/18 Time of H&P: 16:18 Discharge Exam - Head Exam Head Exam: ATRAUMATIC, NORMOCEPHALIC - Eye Exam Eye Exam: EOMI, Normal appearance Additional comments: left eye lid swollen - ENT Exam ENT Exam: Mucous Membranes Moist, Normal Oropharynx - Neck Exam Neck exam: Normal Inspection - Respiratory Exam Respiratory Exam: Clear to PA & Lateral, NORMAL BREATHING PATTERN - Cardiovascular Exam Cardiovascular Exam: RRR, +S1, +S2 - GI/Abdominal Exam GI & Abdominal Exam: Normal Bowel Sounds. absent: Guarding - Extremities Exam Extremities exam: normal inspection - Neurological Exam Neurological exam: Alert, CN II-XII Intact, Oriented x3 - Psychiatric Exam Psychiatric exam: Normal Affect, Normal Mood - Skin Skin Exam: Dry, Intact, Normal Color, Warm Discharge Plan - Discharge Medications Prescriptions: Potassium Chloride [K-Dur 20] 20 meq PO DAILY #30 tab - Follow Up Plan Condition: STABLE Disposition: REHAB FACILITY/REHAB UNIT Instructions: Smoking: Not Just Harmful to Your Lungs and Heart, Vancomycin- Resistant Enterococci, Nausea and Vomiting, Adult, Preventing Falls, Flu Vaccine, Wound Infection, Negative Pressure Wound Therapy Additional Instructions: 1) Patient stable for discharge to [facility] 2) Patient scheduled to see Dr. Watson on Saturday May 05, 2018 for ap pointment. Referrals: Emile Power MD [Staff Provider] - <Ajay Waller - Last Filed: 05/01/18 19:10> Provider - Provider Date of Admission: 04/24/18 02:16 Attending physician: Ajay Waller MD Hospital Course - Lab Results Lab Results: Most Recent Lab Values WBC 5.2 10^3/ul (4.5-11.0) 05/01/18 06:30 RBC 3.56 10^6/uL (3.5-6.1) 05/01/18 06:30 Hgb 10.1 g/dL (12.0-16.0) L D 05/01/18 06:30 Hct 30.3 % (36.0-48.0) L 05/01/18 06:30 MCV 85.1 fl (80.0-105.0) 05/01/18 06:30 MCH 28.4 pg (25.0-35.0) 05/01/18 06:30 MCHC 33.3 g/dl (31.0-37.0) 05/01/18 06:30 RDW 15.2 % (11.5-14.5) H 05/01/18 06:30 Plt Count 90 10^3/uL (120.0-450.0) L 05/01/18 06:30 MPV 9.0 fl (7.0-11.0) 05/01/18 06:30 Gran % 51.1 % (50.0-68.0) 04/28/18 08:44 Lymph % (Auto) 32.6 % (22.0-35.0) 04/28/18 08:44 [place] % (Auto) 12.0 % (1.0-6.0) H 04/28/18 08:44 Eos % (Auto) 3.9 % (1.5-5.0) 04/28/18 08:44 Baso % (Auto) 0.4 % (0.0-3.0) 04/28/18 08:44 Gran # 2.78 (1.4-6.5) 04/28/18 08:44 Lymph # (Auto) 1.8 (1.2-3.4) 04/28/18 08:44 [place] # (Auto) 0.7 (0.1-0.6) H 04/28/18 08:44 Eos # (Auto) 0.2 (0.0-0.7) 04/28/18 08:44 Baso # (Auto) 0.02 K/mm3 (0.0-2.0) 04/28/18 08:44 ESR 17 mm/hr (0.0-20.0) 04/25/18 11:35 PT 14.8 SECONDS (9.4-12.5) H 05/01/18 06:30 INR 1.28 05/01/18 06:30 APTT 40.5 Seconds (25.1-36.5) H 04/25/18 06:30 Sodium 133 mmol/L (132-148) 05/01/18 06:30 Potassium 3.5 mmol/L (3.6-5.0) L 05/01/18 06:30 Chloride 96 mmol/L (98-107) L 05/01/18 06:30 Carbon Dioxide 29 mmol/L (21-33) 05/01/18 06:30 Anion Gap 11 (10-20) 05/01/18 06:30 BUN 15 mg/dL (7-21) 05/01/18 06:30 Creatinine 0.6 mg/dl (0.7-1.2) L 05/01/18 06:30 Est GFR ( Amer) > 60 05/01/18 06:30 Est GFR (Non-Af Amer) > 60 05/01/18 06:30 Random Glucose 87 mg/dL (70-110) 05/01/18 06:30 Calcium 8.1 mg/dL (8.4-10.5) L 05/01/18 06:30 Phosphorus 2.8 mg/dL (2.5-4.5) 04/25/18 06:30 Magnesium 1.7 mg/dL (1.7-2.2) 05/01/18 06:30 Iron 71 ug/dL (45-180) 04/29/18 09:00 TIBC 192 ug/dL (265-497) L 04/29/18 09:00 % Saturation 37 % (20-55) 04/29/18 09:00 Ferritin 360.0 ng/mL 04/29/18 09:00 Total Bilirubin 2.9 mg/dL (0.2-1.3) H 05/01/18 06:30 AST 17 U/L (14-36) 05/01/18 06:30 ALT 23 U/L (7-56) 05/01/18 06:30 Alkaline Phosphatase 90 U/L (38-126) 05/01/18 06:30 Troponin I < 0.01 ng/mL 04/23/18 23:21 C-Reactive Prot, Quant 23.2 mg/L (<8.0) H 04/25/18 11:35 Total Protein 5.7 g/dL (5.8-8.3) L 05/01/18 06:30 Albumin 2.9 g/dL (3.0-4.8) L 05/01/18 06:30 Globulin 2.8 gm/dL 05/01/18 06:30 Albumin/Globulin Ratio 1.0 (1.1-1.8) L 05/01/18 06:30 Digoxin 1.5 ng/mL (0.8-2.0) 04/24/18 08:05 Blood Type O NEGATIVE 04/30/18 07:53 Antibody Screen Negative 04/30/18 07:53 Crossmatch See Detail 04/30/18 07:53 BBK History Checked Patient has bt 04/30/18 07:53 - Hospital Course Hospital Course: Pt seen and examined. I have reviewed the note of the chief medical technologist and agree with it. I have discussed the assessment and plan with the resident. I have reviewed the patient's labs and medications. Pt with R kneed infections. She has been on Zyvox and will continue. She has anemia due to her chronic infection and the frequent blood work that has been done. Her Afib is controlled and placed on Eliquis to maintain stable anticoagulation. She had an endoscopy done and it did not show any bleeding. Her N/V is better. I am still concerned that the N/V is from the Zyvox. [place] [facility] [place] [facility].
[2018-05-01] MEDS: Digoxin 125 mcg (0.125 mg) Tab PO SCH (09:57)
[2018-05-01 09:59] VITALS: PULSE 80
[2018-05-01] MEDS: POLYETHYLENE GLYCOL 3350 17 GM/Dose PACKET PO SCH (12:07)
[2018-05-01] MEDS ORDERED: Influenza Vaccine 60 mcg/0.5 mL SYR (4YR UP) IM ONE (12:36)
--- NOTE | 2018-05-01 15:56 | DS ---
ADDENDUM The patient is an 82-year-old, who was in subacute rehab and was receiving antibiotic for her right knee infection. The patient recently had total knee replacement done and had infected hematoma that was drained and antibiotic spacer was placed. The patient was on Zyvox. The patient states that as soon as she takes antibiotics, it makes her nauseous, so she was brought in for intractable nausea and vomiting, underwent endoscopy yesterday and found to be unremarkable. Today, the patient was examined and resident's assessment and plan and evaluation reviewed and agreed. The patient has history of chronic AFib, coronary artery disease, hypertension, and currently is being treated for right knee infection. The patient's blood work showed hemoglobin of 7.5 with hematocrit of 22, so she will be transfused 2 packed RBCs and all her medications seem to be appropriate. We will start her on Coumadin again and follow up H and H. If it is stable, she will be transferred back to [facility] in a.m. Marly Romero MD
--- NOTE | 2018-05-01 20:06 | PQF ---
PROVIDER RESPONSE TEXT: Nausea and vomiting is medication induced REVIEWER QUERY TEXT: Condition Necessitating Admission Please clarify the medical conditions and the associated clinical risk factors necessitating admissio n. The patient's Clinical Indicators include: Patient admitted with persistent nausea, vomiting. No acute findings noted on tests, EGD revealed gastritis. 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 Please clarify the suspected cause, if determined, of the symptoms necessitating admission. Query created by: Екатерина Atkinson on 04/29/2018 2:25 PM Electronically signed by: Ajay Waller MD 05/01/2018 8:03 PM
== END 2018-05-01 15:23 | DRG 392 ==
LOC: ED 21:39 → ERH 04-24 02:16 → 5RNO 04-24 17:36
PROVIDERS: ADMIT Internal Medicine Nephrology; ATTEND Internal Medicine Nephrology
PROC: 0DJ08ZZ Inspection of Upper Intestinal Tract, Via Natural or Artificial Opening Endoscopic (ICD-10-PCS; principal; 2018-04-28 10:30)
DX: R11.2 Nausea with vomiting, unspecified (principal); T36.8X5A Adverse effect of other systemic antibiotics, initial encounter; R45.851 Suicidal ideations; K29.70 Gastritis, unspecified, without bleeding; I48.91 Unspecified atrial fibrillation; I25.10 Atherosclerotic heart disease of native coronary artery without angina pectoris; I10 Essential (primary) hypertension; R63.4 Abnormal weight loss; R79.1 Abnormal coagulation profile; T45.515A Adverse effect of anticoagulants, initial encounter; D63.8 Anemia in other chronic diseases classified elsewhere; F43.23 Adjustment disorder with mixed anxiety and depressed mood; K59.00 Constipation, unspecified; Z79.01 Long term (current) use of anticoagulants; T84.53XD Infection and inflammatory reaction due to internal right knee prosthesis, subsequent encounter; Y83.1 Surgical operation with implant of artificial internal device as the cause of abnormal reaction of the patient, or of later complication, without mention of misadventure at the time of the procedure; Z79.82 Long term (current) use of aspirin; Z96.651 Presence of right artificial knee joint; Z95.5 Presence of coronary angioplasty implant and graft

== ENCOUNTER 2018-05-16 17:46 | Inpatient (IN) | payer MEDICARE, BC ==
[2018-05-16] MEDS ORDERED: Sodium Chloride 0.9% 1,000 ML IV SCH (18:15)
--- NOTE | 2018-05-16 18:15 | ED PDOC ---
Arrival/HPI - General Chief Complaint: Abdominal Pain Time Seen by Provider: 05/16/18 17:55 Historian: Patient, Family (daughter) - History of Present Illness Narrative History of Present Illness (Text): 05/16/18 18:15 82 yo female with h/o HTN, CAD, AFib (on coumadin), Osteoarthritis, Right Knee Replacement (wound back, +VRE, on Zybox), presents to the ED due to nausea and vomiting x 1 month and now lightheadedness and weakness x 5 days. Symptoms are worsening she states. She is able to tolerate fluids. No abdominal pain. No diarrhea. Her right knee is not worsening pain; no numbness. No CP or SOB. PMD: Dr. Waller Ortho: Dr. Eddy GI: Dr. Power 05/16/18 19:09 Past Medical History - Provider Review Nursing Documentation Reviewed: Yes - Infectious Disease Hx of Infectious Diseases: None - Tetanus Immunization Tetanus Immunization: Unknown - Cardiac Hx Cardiac Disorders: Yes (afib, CAD) Hx Congestive Heart Failure: Yes Hx Hypertension: Yes - Pulmonary Hx Respiratory Disorders: Yes Hx Pneumonia: Yes - Neurological Hx Neurological Disorder: Yes Hx Dizziness: Yes - HEENT Hx HEENT Disorder: Yes (LAZY EYE LEFT EYE) Hx Cataracts: Yes - Renal Hx Renal Disorder: No - Endocrine/Metabolic Hx Endocrine Disorders: No - Hematological/Oncological Hx Blood Transfusions: Yes Hx Blood Transfusion Reaction: No - Integumentary Hx Dermatological Disorder: Yes Other/Comment: RIGHT KNEE SURGERY -WOUND VAC-KNEE IMMOBILIZER - Musculoskeletal/Rheumatological Hx Musculoskeletal Disorders: Yes (ORIF RIGHT TIBIA 1989) Hx Arthritis: Yes Hx Degenerative Joint Disease: Yes Hx Falls: Yes Hx Fractures: Yes (RIGHT LEG ,ANKLE) Hx Osteoporosis: Yes Hx Unsteady Gait: Yes - Gastrointestinal Hx Gastrointestinal Disorders: Yes (HEMORRHOIDS,CONSTIPATION) - Genitourinary/Gynecological Hx Genitourinary Disorders: Yes (PMB) - Psychiatric Hx Psychophysiologic Disorder: No Hx Substance Use: No - Surgical History Hx Mastectomy: No Other/Comment: ORIF RIGHT TIBIA 1989,BILATERAL CATARACT SX, - Anesthesia Hx Anesthesia Reactions: No (VOMITING) Hx Malignant Hyperthermia: No - Suicidal Assessment Feels Threatened In Home Enviroment: No Family/Social History - Physician Review Nursing Documentation Reviewed: Yes Family/Social History: No Known Family HX Smoking Status: Never Smoked Hx Alcohol Use: No Hx Substance Use: No Allergies/Home Meds Allergies/Adverse Reactions: Allergies diphenhydramine [From Benadryl] Allergy (Severe, Verified 05/16/18 18:22) unknown nitroglycerin Allergy (Severe, Verified 05/16/18 18:22) ANAPHYLAXIS pcn Allergy (Severe, Uncoded 05/16/18 18:22) RASH silk tape Allergy (Uncoded 05/16/18 18:22) blisters chocolate candy Adverse Reaction (Severe, Uncoded 05/16/18 18:22) HEADACHE Home Medications: Home Meds Medication Instructions Recorded Confirmed Aspirin [Ecotrin] 81 mg PO DAILY 11/18/15 04/23/18 Warfarin [Coumadin] 2 mg PO DAILY 11/18/15 04/23/18 Digoxin 0.125 mg PO DAILY 08/19/16 04/23/18 Simvastatin [Zocor] 40 mg PO HS 08/19/16 04/23/18 Atenolol [Tenormin] 25 mg PO BID 02/01/17 04/23/18 Furosemide [Lasix] 40 mg PO DAILY 03/31/18 04/23/18 Acetaminophen [Tylenol 325mg tab] 650 mg PO Q6H PRN 04/23/18 04/23/18 Review of Systems - Review of Systems Constitutional: Fatigue. absent: Fevers Eyes: Normal ENT: Normal Respiratory: Normal Cardiovascular: Normal Gastrointestinal: Nausea, Vomiting. absent: Abdominal Pain, Diarrhea Genitourinary Female: Normal Musculoskeletal: Normal Skin: Normal Neurological: Normal Endocrine: Normal Hemo/Lymphatic: Normal Psychiatric: Normal Physical Exam Vital Signs Reviewed: Yes Temperature: Afebrile Blood Pressure: Normal Pulse: Regular Respiratory Rate: Normal Appearance: Positive for: Well-Appearing, Non-Toxic, Comfortable Pain Distress: None Mental Status: Positive for: Alert and Oriented X 3 - Systems Exam Head: Present: Atraumatic, Normocephalic Pupils: Present: PERRL Extroacular Muscles: Present: EOMI Conjunctiva: Present: Normal Mouth: Present: Dry (mild dry) Pharnyx: Present: Normal Neck: Present: Normal Range of Motion Respiratory/Chest: Present: Clear to Auscultation, Good Air Exchange. No: Respiratory Distress, Accessory Muscle Use Cardiovascular: Present: Regular Rate and Rhythm, Normal S1, S2. No: Murmurs Abdomen: No: Tenderness, Distention, Peritoneal Signs Back: Present: Normal Inspection Upper Extremity: Present: Normal Inspection. No: Cyanosis, Edema Lower Extremity: Present: NORMAL PULSES (pedal), Neurovascularly Intact. No: Edema, Normal ROM (Left leg +FROM; Right leg with wound vac to knee), Swelling Neurological: Present: GCS=15, CN II-XII Intact, Speech Normal Skin: Present: Warm, Dry, Normal Color. No: Rashes Psychiatric: Present: Alert, Oriented x 3, Normal Insight, Normal Concentration Medical Decision Making ED Course and Treatment: 05/16/18 18:13 82 yo female with persistent nausea and vomiting x 1 month; no abdominal pain; +lightheadness +weakness -- Labs -- IVF -- Zofran IV -- Digoxin level -- Fang placed due to dehydration and need to monitor output. Also she has a right knee with wound vac. -- Reevaluation and disposition 05/16/18 19:[address] Dasilva to f/u Labs, UA, reevaluate and disposition. - RAD Interpretation Radiology Orders: 05/16/18 18:09 CHEST PORTABLE [RAD] Stat Disposition/Present on Arrival - Present on Arrival Any Indicators Present on Arrival: No History of DVT/PE: No History of Uncontrolled Diabetes: No Urinary Catheter: No History Surgical Site Infection Following: Orthopedic Procedures - Disposition Have Diagnosis and Disposition been Completed?: No Diagnosis: Dehydration, Vomiting Disposition Time: 18:19 Patient Problems: Current Active Problems Problem Status Onset Vomiting Acute Dehydration Acute Condition: FAIR Forms: [employer] ([place])
[2018-05-16 18:21] VITALS: BMI 21.2
--- NOTE | 2018-05-16 19:00 | RAD ---
Date of service: 05/16/2018 HISTORY: Sepsis Patient COMPARISON: 04/28/2018. FINDINGS: LUNGS: No active pulmonary disease. PLEURA: No significant pleural effusion identified, no pneumothorax apparent. CARDIOVASCULAR: No radiographic findings to suggest acute or significant cardiovascular disease. Atherosclerotic calcifications identified primarily aortic arch. OSSEOUS STRUCTURES: No significant abnormalities. VISUALIZED UPPER ABDOMEN: Normal. OTHER FINDINGS: None. IMPRESSION: No active disease. No significant interval change compared to the prior examination(s). Concordant results with the preliminary interpretation rendered by the emergency department physician procedure.
[2018-05-16 19:32] LABS: VENOUS BLOOD GAS BASE EXCESS -8.8 mmol/L (0.0-2.0); VENOUS BLOOD GAS PO2 29 mm/Hg (30-55); VENOUS BLOOD PH 7.27 (7.32-7.43)
[2018-05-16 19:42] LABS: ALB/GLOB RATIO 1.4 (1.1-1.8); ALBUMIN 4.1 g/dL (3.0-4.8); CALCIUM 9.4 mg/dL (8.4-10.5); EOS % 0.1 % (1.5-5.0); GRAN # 5.2 (1.4-6.5); GRAN % 75.9 % (50.0-68.0); HEMOGLOBIN 10.8 g/dL (12.0-16.0); LYMPH # 1.5 (1.2-3.4); LYMPH % 22.2 % (22.0-35.0); MEAN CELL VOLUME 86.8 fl (80.0-105.0); MEAN CORPUSCULAR HEMOGLOBIN 28.4 pg (25.0-35.0); MEAN CORPUSCULAR HGB CONC 32.7 g/dl (31.0-37.0); MEAN PLATELET VOLUME 10.7 fl (7.0-11.0); MONO # 0.1 (0.1-0.6); MONO % 1.8 % (1.0-6.0); RBC 3.8 10^6/uL (3.5-6.1); RED CELL DISTRIBUTION WIDTH 16.4 % (11.5-14.5); WHITE BLOOD COUNT 6.9 10^3/uL (4.5-11.0)
[2018-05-16 19:45] LABS: URINE BILIRUBIN NEGATIVE (NEGATIVE); URINE BLOOD NEGATIVE (NEGATIVE); URINE GLUCOSE (UA) NEGATIVE (NEGATIVE); URINE LEUKOCYTE ESTERASE NEGATIVE Leu/uL (NEGATIVE); URINE PROTEIN NEGATIVE mg/dL (<30 mg/dL); URINE UROBILINOGEN 0.2 E.U./dL (<1 E.U./dL)
[2018-05-16 19:46] LABS: URINE APPEARANCE CLEAR (CLEAR); URINE COLOR YELLOW (YELLOW)
[2018-05-16 19:46] LABS: INR 1.89; PARTIAL THROMBOPLASTIN TIME 35.2 Seconds (25.1-36.5); PROTHROMBIN TIME 21.8 SECONDS (9.4-12.5)
[2018-05-16] MEDS ORDERED: Sodium Chloride 0.9% 1,000 ML IV STA ×2 (19:57→20:03)
--- NOTE | 2018-05-16 20:08 | ED PDOC ---
Physical Exam Vital Signs Temp Pulse Resp BP Pulse Ox 05/16/18 18:21 97.6 F 74 19 132/37 L 100 Medical Decision Making ED Course and Treatment: 05/16/18 19:09 Case endorsed to me by Dr. Roa, pending labs, urinalysis, re-evaluation, and disposition. Pt, whose past medical history includes hypertension, atrial fibrillation on Coumadin, osteoarthritis, and right knee replacement (wound vac, positive for VRE, on Zybox), presented for nausea/vomiting x 1 month with lightheadness and weakness over the past 5 days. 05/16/18 20:02 Labs reviewed, lactate: 15.9, anion gap: 32, BUN:63. Code Sepsis called. 05/16/18 20:[address] Watson, who agrees to consult on case. 05/16/18 20:53 Case discussed at length with Dr. Waller, who is aware and agrees with plan. Accepts pt in to his service. Pt will be admitted to [facility] for dehydration and intractable vomiting, r/o sepsis. States elevated lactate may be due to starvation lactic acidosis and to hold off on any antibiotics. 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 Requests Dr. Simeon, Dr. Power, and Dr. Watson on consult. - Lab Interpretations Lab Results: 05/16/18 19:12 05/16/18 19:12 Lab Results 05/16/18 19:20: Urine Color Yellow, Urine Appearance Clear, Urine pH 6.0, Ur Specific [place] 1.020, Urine Protein Negative, Urine Glucose (UA) Negative, Urine Ketones Negative, Urine Blood Negative, Urine Nitrate Negative, Urine Bilirubin Negative, Urine Urobilinogen 0.2, Ur Leukocyte Esterase Negative 05/16/18 19:12: Digoxin 0.8 05/16/18 19:12: Sodium 138, Chloride 94 L, Potassium 4.5, Carbon Dioxide 16 L, Anion Gap 32 H, BUN 63 H, Creatinine 1.4 H, Est GFR ( Amer) 43, Est GFR (Non-Af Amer) 36, Random Glucose 120 H, Calcium 9.4, Phosphorus 5.8 H, Magnesium 2.6 H, Total Bilirubin 1.3, AST 31, ALT 19, Alkaline Phosphatase 93, Total Protein 6.9, Albumin 4.1, Globulin 2.9, Albumin/Globulin Ratio 1.4 05/16/18 19:12: pO2 29 L, VBG pH 7.27 L, VBG pCO2 38.0 L, VBG HCO3 17.4 L, VBG Total CO2 18.6 L, VBG O2 Sat (Calc) 57.2, VBG Base Excess -8.8 L, VBG Potassium 4.3, Sodium 138.0, Chloride 95.0 L, Glucose 122 H, Lactate 15.9 H*, FiO2 21.0, Venous Blood Potassium 4.3 05/16/18 19:12: PT 21.8 H, INR 1.89, APTT 35.2 05/16/18 19:12: WBC 6.9, RBC 3.80, Hgb 10.8 L, Hct 33.0 L, MCV 86.8, MCH 28.4, MCHC 32.7, RDW 16.4 H, Plt Count 105 L, MPV 10.7, Gran % 75.9 H, Lymph % (Auto) 22.2, [place] % (Auto) 1.8, Eos % (Auto) 0.1 L, Baso % (Auto) 0.0, Gran # 5.20, Lymph # (Auto) 1.5, [place] # (Auto) 0.1, Eos # (Auto) 0.0, Baso # (Auto) 0.00 - RAD Interpretation Radiology Orders: 05/16/18 18:09 CHEST PORTABLE [RAD] Stat - Medication Orders Current Medication Orders: Sodium Chloride (Sodium Chloride 0.9%) 1,000 mls @ 150 mls/hr IV .Q6H40M [facility] Last Admin: 05/16/18 19:12 Dose: 150 mls/hr eMAR Start Stop Document 05/16/18 19:12 OCS (Rec: 05/16/18 19:12 OCS [facility] [id number]) Intravenous Solution Start Date 05/16/18 Start Time 19:12 Sodium Chloride (Sodium Chloride 0.9%) 1,000 mls @ 999 mls/hr IV .Q1H1M STA Stop: 05/16/18 20:57 Sodium Chloride (Sodium Chloride 0.9%) 1,000 mls @ 999 mls/hr IV .Q1H1M STA Stop: 05/16/18 21:03 Discontinued Medications Metoclopramide HCl (Reglan) 10 mg IVP ONCE ONE Stop: 05/16/18 19:45 Disposition/Present on Arrival - Present on Arrival Any Indicators Present on Arrival: No History of DVT/PE: No History of Uncontrolled Diabetes: No Urinary Catheter: No History of Decub. Ulcer: Yes (Right Knee Wound) History Surgical Site Infection Following: Orthopedic Procedures - Disposition Have Diagnosis and Disposition been Completed?: Yes Diagnosis: Dehydration, Intractable vomiting Disposition: HOSPITALIZED Disposition Time: 21:38 Patient Plan: Admission Patient Problems: Current Active Problems Problem Status Onset Dehydration Acute Vomiting Acute Condition: FAIR
[2018-05-16] MEDS ORDERED: DAPTOmycin 500 mg Inj (Cubicin) IV SCH (22:30)
[2018-05-16 23:45] LABS: VENOUS BLOOD GAS BASE EXCESS -12.6 mmol/L (0.0-2.0); VENOUS BLOOD GAS PO2 50 mm/Hg (30-55); VENOUS BLOOD PH 7.16 (7.32-7.43)
--- NOTE | 2018-05-16 23:57 | PCM.SEPTIC ---
Sepsis Progress Note - Reassessment Type Date of Evaluation: 05/16/18 Time of Evaluation: 23:56 Reassessment Type: Non-invasive reassessment - Non Invasive Reassessment Were the most recent vital sign reviewed: Yes Vital Sign (Latest): Temp Pulse Resp BP Pulse Ox 97.6 F 72 19 139/73 99 05/16/18 21:40 05/16/18 21:55 05/16/18 21:55 05/16/18 21:55 05/16/18 21:55 Cardiovascular: Yes: Regular Rate, Rhythm. No: Gallop, JVD, Murmur Respiratory: Yes: Normal Breath Sounds. No: Accessory Muscle Use, Rales, Rhonchi, Wheezing, Respiratory Distress Capillary Refill: Normal (Less than 2 sec) Pulses: Normal Radial, Normal Dorsalis Pedis, Normal Posterior Tibialis Skin: Warm, Dry, Pale
[2018-05-17] MEDS ORDERED: Sodium Chloride 0.9% 1,000 ML IV SCH (00:15)
[2018-05-17 05:23] LABS: VENOUS BLOOD GAS BASE EXCESS -10.3 mmol/L (0.0-2.0); VENOUS BLOOD GAS PO2 39 mm/Hg (30-55); VENOUS BLOOD PH 7.27 (7.32-7.43)
--- NOTE | 2018-05-17 09:40 | CARD ---
APPROVED REPORT Date of service: 05/16/2018 EKG Measurement Heart [id number] <Conclusion> Atrial fibrillation with premature ventricular or aberrantly conducted complexes ST & T wave abnormality, consider inferolateral ischemia or digitalis effect Prolonged QT Abnormal ECG
[2018-05-17 09:47] LABS: VENOUS BLOOD GAS BASE EXCESS -9.8 mmol/L (0.0-2.0); VENOUS BLOOD GAS PO2 168 mm/Hg (30-55); VENOUS BLOOD PH 7.31 (7.32-7.43)
[2018-05-17 10:09] LABS: HEMOGLOBIN 9.1 g/dL (12.0-16.0); MEAN CELL VOLUME 86.1 fl (80.0-105.0); MEAN CORPUSCULAR HEMOGLOBIN 28.2 pg (25.0-35.0); MEAN CORPUSCULAR HGB CONC 32.7 g/dl (31.0-37.0); MEAN PLATELET VOLUME 9.6 fl (7.0-11.0); RBC 3.23 10^6/uL (3.5-6.1); RED CELL DISTRIBUTION WIDTH 16.6 % (11.5-14.5)
[2018-05-17] MEDS: Enoxaparin 60 mg Syringe SC SCH ×2 (10:13→21:50)
[2018-05-17] MEDS: Digoxin 125 mcg (0.125 mg) Tab PO SCH (10:19)
[2018-05-17 10:25] LABS: ALB/GLOB RATIO 1.2 (1.1-1.8); ALBUMIN 3.1 g/dL (3.0-4.8); CALCIUM 8.6 mg/dL (8.4-10.5)
--- NOTE | 2018-05-17 11:58 | HP ---
DATE OF EXAM: 05/17/2018 CHIEF COMPLAINT AND HISTORY OF PRESENT ILLNESS: This is an 82-year-old female who has come into the hospital because of nausea and vomiting. The patient had been at subacute rehab facility and has been having nausea and vomiting. She is not able to eat. She has been on antibiotics of Zyvox for VRE and her status post right knee replacement. The patient has no complaints of abdominal pain, no dysuria, no frequency, no nocturia. She is not able to get full history because she is weak and says she does not feel well. The patient is currently comfortable. She states she is feeling better than she was feeling yesterday. She has no headaches, no dizziness, no nausea. She has been on BuSpar for her nausea with some relief. She has also been on Zyvox from 8 weeks for her antibiotics. ALLERGIES: BENADRYL, NITROGLYCERIN, PENICILLIN, CHOCOLATE. PAST MEDICAL HISTORY: 1. Hypertension. 2. Coronary artery disease. 3. Atrial fibrillation, on Coumadin. 4. Osteoarthritis. 5. Right knee replacement. PAST SURGICAL HISTORY: Right knee replacement with removal of spacer on 04/08/2018. SOCIAL HISTORY: She does not smoke, drink or use drugs. She lives alone. She was walking with a walker prior to her surgery. FAMILY HISTORY: Heart disease. PHYSICAL EXAMINATION: VITAL SIGNS: Temperature is 97.4, pulse is 74, blood pressure is 123/71, respirations 16, O2 saturation is 97%. GENERAL: The patient lying in bed, uncomfortable, and in no acute distress. HEENT: Atraumatic and normocephalic. Anicteric sclerae. Moist mucosa. Theresa conjunctivae. No oral lesions. NECK: No JVD, anterior and posterior adenopathy, thyromegaly, or bruits. CARDIOVASCULAR: S1 and S2 regular. No murmur, rubs, or gallop. LUNGS: Clear to auscultation bilaterally. No wheezes, rales, or rhonchi. ABDOMEN: Bowel sounds are positive. Soft, nontender and nondistended. No hepatosplenomegaly. No rebound and no guarding. EXTREMITIES: No cyanosis, clubbing, or edema. NEUROLOGIC: No facial asymmetry. Tongue is midline. No uvula deviation. Power is 5/5 upper extremity and lower extremity. Sensation intact in upper extremity and lower extremity. PSYCHIATRIC: She is awake, alert and oriented x3. No anxiety or depression. She has normal affect. GENITOURINARY: No CVA tenderness. VASCULAR: 2+ pulses in the carotid pulses and pedal pulses. SKIN: No erythema or nodules. SPINE: Shows normal curvature. LABORATORY DATA: White count of 6.9, hemoglobin 10.8. Patient has a lactate of 13.9. Chemistry shows a creatinine of 1.4, magnesium is 2.6. Urine shows blood with negative nitrites and bilirubin is negative. Toxicology shows a digit of 0.8. ASSESSMENT: 1. Anion gap metabolic acidosis. 2. Hypovolemia. 3. Nausea and vomiting. 4. Right knee infection, on antibiotics. 5. Coronary artery disease. 6. Hypertension. 7. Atrial fibrillation, on anticoagulation. PLAN: The patient is going to be admitted to the hospital, she was going to be placed on antibiotics. The patient most likely does not have sepsis. The high lactic acid is most likely from the Zyvox as the patient was on and may also caused by starvation ketosis and it is difficult to distinguish the two. The patient is going to continue her anticoagulation with Coumadin, she is going to be on aspirin for her coronary artery disease. She had been on Lasix, I will put the Lasix on hold. The patient is on atenolol for her coronary artery disease, we will continue with that medication as well. She is on statins, I will hold her statins for now. I did speak to the patient's daughter to give an update of the patient's diagnosis and plan of care. The patient is going to be seen by Infectious Disease for her antibiotics. I did speak to Dr. Mi regarding the patient's antibiotics and he has decided to place her on daptomycin. She is going to be seeing Dr. Watson. She has an appointment on Saturday for a followup and so I will have him see her once she is in the hospital. I will have Dr. Power see the patient for the vomiting. I am hoping that since she will be off her Zyvox she should have improvement in her symptoms. She will also need to be started on her anticoagulation and her INR is subtherapeutic at 1.89, so I will place her on Lovenox until she is therapeutic. Ajay Waller MD [facility] # [id number]
--- NOTE | 2018-05-17 14:01 | CP.PCM.CON ---
History of Present Illness - History of Present Illness History of Present Illness: 82 year old female with PMH of CAD S/P PCI, HTN, atrial fibrillation, osteoarthritis S/P right knee replacement was recently admitted last month in [facility] [place] because of right knee swelling and was noted to have infection with infected hematoma, and the prosthesis was removed and replaced with a spacer. She had cultures taken which showed VRE and is currently on Zyvox. She is now admitted again in [facility] [place] [facility] because of worsening nausea and vomiting which apparently started even before she was admitted in [facility] [place] [facility] in April 2018. She also has some l ightheadedness and generalized weakness for the past 5 days. She denies fever or chills, no chest pain, no SOB, no cough or colds, no abdominal pain, no diarrhea, no dysuria. Infectious Diseases consult is requested to further evaluate and manage. Review of Systems - Review of Systems All systems: reviewed and no additional remarkable complaints except (as per HPI) Past Patient History - Infectious Disease Hx of Infectious Diseases: None - Tetanus Immunizations Tetanus Immunization: Unknown - Past Medical History & Family History Past Medical History?: Yes - Past Social History Smoking Status: Never Smoked - CARDIAC Hx Cardiac Disorders: Yes (afib, CAD) Hx Congestive Heart Failure: Yes Hx Hypertension: Yes - PULMONARY Hx Respiratory Disorders: Yes Hx Pneumonia: Yes - NEUROLOGICAL Hx Neurological Disorder: Yes Hx Dizziness: Yes - HEENT Hx HEENT Problems: Yes (LAZY EYE LEFT EYE) Hx Cataracts: Yes - RENAL Hx Chronic Kidney Disease: No - ENDOCRINE/METABOLIC Hx Endocrine Disorders: No - HEMATOLOGICAL/ONCOLOGICAL Hx Blood Transfusions: Yes Hx Blood Transfusion Reaction: No - INTEGUMENTARY Hx Dermatological Problems: Yes Other/Comment: RIGHT KNEE SURGERY -WOUND VAC-KNEE IMMOBILIZER - MUSCULOSKELETAL/RHEUMATOLOGICAL Hx Musculoskeletal Disorders: Yes (ORIF RIGHT TIBIA 1989) Hx Arthritis: Yes Hx Degenerative Joint Disease: Yes Hx Falls: Yes Hx Fractures: Yes (RIGHT LEG ,ANKLE) Hx Osteoporosis: Yes Hx Unsteady Gait: Yes - GASTROINTESTINAL Hx Gastrointestinal Disorders: Yes (HEMORRHOIDS,CONSTIPATION) - GENITOURINARY/GYNECOLOGICAL Hx Genitourinary Disorders: Yes (PMB) - PSYCHIATRIC Hx Psychophysiologic Disorder: No Hx Substance Use: No - SURGICAL HISTORY Hx Mastectomy: No Other/Comment: ORIF RIGHT TIBIA 1989,BILATERAL CATARACT SX, - ANESTHESIA Hx Anesthesia Reactions: No (VOMITING) Hx Malignant Hyperthermia: No Meds Allergies/Adverse Reactions: Allergies Allergy/AdvReac Type Severity Reaction Status Date / Time diphenhydramine Allergy Severe unknown Verified 05/16/18 18:22 [From Benadryl] nitroglycerin Allergy Severe ANAPHYLAXIS Verified 05/16/18 18:22 pcn Allergy Severe RASH Uncoded 05/16/18 18:22 silk tape Allergy blisters Uncoded 05/16/18 18:22 chocolate candy AdvReac Severe HEADACHE Uncoded 05/16/18 18:22 - Medications Medications: Current Medications Sodium Chloride (Sodium Chloride 0.9%) 1,000 mls @ 150 mls/hr IV .Q6H40M [facility] Last Admin: 05/16/18 19:12 Dose: 150 mls/hr Ondansetron HCl (Zofran Inj) 4 mg IVP Q4H PRN PRN Reason: Nausea/Vomiting Stop: 05/17/18 09:00 Physical Exam - Constitutional Appears: Chronically Ill - Head Exam Head Exam: NORMAL INSPECTION - Neck Exam Neck exam: Negative for: Meningismus - Respiratory Exam Respiratory Exam: Decreased Breath Sounds - Cardiovascular Exam Cardiovascular Exam: +S1, +S2 - GI/Abdominal Exam GI & Abdominal Exam: Soft. absent: Tenderness Results - Vital Signs Recent Vital Signs: Last Vital Signs Temp 97.6 F 05/16/18 21:40 Pulse 72 05/16/18 21:55 Resp 19 05/16/18 21:55 BP 139/73 05/16/18 21:55 Pulse Ox 99 05/16/18 21:55 - Labs Result Diagrams: 05/17/18 09:30 05/17/18 09:30 Labs: Laboratory Results - last 24 hr 05/16/18 05/16/18 05/16/18 19:12 19:12 19:12 WBC 6.9 RBC 3.80 Hgb 10.8 L Hct 33.0 L MCV 86.8 MCH 28.4 MCHC 32.7 RDW 16.4 H Plt Count 105 L MPV 10.7 Gran % 75.9 H Lymph % (Auto) 22.2 [place] % (Auto) 1.8 Eos % (Auto) 0.1 L Baso % (Auto) 0.0 Gran # 5.20 Lymph # (Auto) 1.5 [place] # (Auto) 0.1 Eos # (Auto) 0.0 Baso # (Auto) 0.00 PT 21.8 H INR 1.89 APTT 35.2 pO2 29 L VBG pH 7.27 L VBG pCO2 38.0 L VBG HCO3 17.4 L VBG Total CO2 18.6 L VBG O2 Sat (Calc) 57.2 VBG Base Excess -8.8 L VBG Potassium 4.3 Sodium 138.0 Chloride 95.0 L Glucose 122 H Lactate 15.9 H* FiO2 21.0 Potassium Carbon Dioxide Anion Gap BUN Creatinine Est GFR ( Amer) Est GFR (Non-Af Amer) Random Glucose Calcium Phosphorus Magnesium Total Bilirubin AST ALT Alkaline Phosphatase Total Protein Albumin Globulin Albumin/Globulin Ratio Venous Blood Potassium 4.3 Urine Color Urine Appearance Urine pH Ur Specific [employer] Urine Protein Urine Glucose (UA) Urine Ketones Urine Blood Urine Nitrate Urine Bilirubin Urine Urobilinogen Ur Leukocyte Esterase Digoxin 05/16/18 05/16/18 05/16/18 19:12 19:12 19:20 WBC RBC Hgb Hct MCV MCH MCHC RDW Plt Count MPV Gran % Lymph % (Auto) [place] % (Auto) Eos % (Auto) Baso % (Auto) Gran # Lymph # (Auto) [place] # (Auto) Eos # (Auto) Baso # (Auto) PT INR APTT pO2 VBG pH VBG pCO2 VBG HCO3 VBG Total CO2 VBG O2 Sat (Calc) VBG Base Excess VBG Potassium Sodium 138 Chloride 94 L Glucose Lactate FiO2 Potassium 4.5 Carbon Dioxide 16 L Anion Gap 32 H BUN 63 H Creatinine 1.4 H Est GFR ( Amer) 43 Est GFR (Non-Af Amer) 36 Random Glucose 120 H Calcium 9.4 Phosphorus 5.8 H Magnesium 2.6 H Total Bilirubin 1.3 AST 31 ALT 19 Alkaline Phosphatase 93 Total Protein 6.9 Albumin 4.1 Globulin 2.9 Albumin/Globulin Ratio 1.4 Venous Blood Potassium Urine Color Yellow Urine Appearance Clear Urine pH 6.0 Ur Specific [employer] 1.020 Urine Protein Negative Urine Glucose (UA) Negative Urine Ketones Negative Urine Blood Negative Urine Nitrate Negative Urine Bilirubin Negative Urine Urobilinogen 0.2 Ur Leukocyte Esterase Negative Digoxin 0.8 Assessment & Plan - Assessment and Plan (Free Text) Plan: Assessment nausea and vomiting, R/O due to meds 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 Hernandez will monitor clinically
[2018-05-17 14:02] LABS: VENOUS BLOOD GAS BASE EXCESS -9.9 mmol/L (0.0-2.0); VENOUS BLOOD GAS PO2 46 mm/Hg (30-55); VENOUS BLOOD PH 7.25 (7.32-7.43)
[2018-05-17 14:21] LABS: ARTERIAL BLOOD GAS HCO3 13.8 mmol/L (21-28); ARTERIAL BLOOD GAS HEMOGLOBIN 8.9 g/dL (11.7-17.4); ARTERIAL BLOOD GAS O2 CAPACITY 12.4 mL/dl (16-24); ARTERIAL BLOOD GAS O2 CONTENT 12.3 ML/dl (15-23); ARTERIAL BLOOD GAS O2 SAT 99.5 % (95-98); ARTERIAL BLOOD GAS PCO2 25 mm/Hg (35-45); ARTERIAL BLOOD GAS PH 7.35 (7.35-7.45); ARTERIAL BLOOD GAS TCO2 14.6 mmol.L (22-28)
--- NOTE | 2018-05-17 14:32 | CON ---
GASTROENTEROLOGY CONSULTATION DATE: 05/17/2018 REQUESTING PHYSICIAN: Dr. Waller. 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 The patient's vomiting started approximately 2 months ago. It has become progressively worse. The vomiting occurs after paroxysms of cough. It also occurs after the patient takes Zyvox. The patient had a extensive workup for symptoms several weeks ago during her last hospitalization which included a negative CT scan of the head for any intracranial lesions, negative CT scan of the abdomen and pelvis and a negative endoscopy. The patient has been receiving Zyvox for VRE infection of her right knee. She also has a wound VAC in place in the right knee. She denies any abdominal pain, diarrhea, melena, hematemesis, fevers or chills. PAST MEDICAL HISTORY: As above. Again, she has a history of atrial fibrillation on Coumadin, coronary artery disease, osteoarthritis and hypertension. PAST SURGICAL HISTORY: Notable for right total knee replacement, explantation of the right knee prosthesis, right tibia surgery for fracture and cataract surgery. SOCIAL HISTORY: She denies cigarette smoking or alcohol use. She is currently domiciled at a subacute facility. FAMILY HISTORY: Noncontributory. REVIEW OF SYSTEMS: A 14-point review of systems is notable for vomiting and weakness. PHYSICAL EXAMINATION: GENERAL: Elderly female lying in bed, appearing weak. Her weight is 140 pounds. VITAL SIGNS: Reveal temperature of 97.4, blood pressure 123/71 and heart rate of 74. HEENT: Reveal sclerae to be white and conjunctivae pink. Oral mucosa is dry. NECK: Supple. CHEST: Reveal distant breath sounds. HEART: Reveals an irregular rate. ABDOMEN: Soft and nontender. EXTREMITIES: Show a wound VAC in her right knee. LABORATORY DATA: Reveal white blood cell count 7.0 and hemoglobin 9.1. Chemistries reveal BUN 63, creatinine 1.2, phosphorus of 5 and magnesium of 2.5. AST, ALT and alk phos are all normal. Coags reveals PT 21.89 and an INR 1.89. IMPRESSION: An 82-year-old female with 2 months of worsening nausea and vomiting. Some of her episodes of vomiting occur after a paroxysm of cough. She also has nausea and vomiting after taking the Zyvox. She has had an extensive workup during her previous hospitalization for the vomiting including CT scan of the head, CT scan of the abdomen and pelvis and endoscopy which were all unrevealing. She currently has prerenal azotemia due to dehydration. RECOMMENDATIONS: 1. IV fluid resuscitation. 2. Slow diet advancement starting with clear liquids as tolerated. 3. Zyvox has been stopped. The patient has been started on daptomycin, if symptoms continue, we may need to repeat a CAT scan of the abdomen and pelvis. Also we will request a serum cortisol level for the morning to rule out adrenal insufficiency. Emile Power MD
--- NOTE | 2018-05-17 15:45 | CON ---
DATE OF CONSULTATION: 05/17/2018 REASON FOR CONSULTATION: Right knee infection, status post explantation of right total knee replacement. HISTORY OF PRESENT ILLNESS: This is an 82-year-old female, who is well known to me, who approximately 5 weeks ago underwent explantation of right total knee replacement. Cultures at that time were consistent with VRE infection and the patient had subsequently been on Zyvox since. She has also been treating it with twice weekly VAC dressing changes over the right knee incision. The last VAC dressing change was on . She was admitted yesterday to the hospital for possible dehydration and intractable vomiting. PHYSICAL EXAMINATION: GENERAL: She is awake, alert, and oriented x3. VITAL SIGNS: She is afebrile. Her vital signs are stable. EXTREMITIES: On evaluation of the right knee, the VAC dressing was removed. She still has an approximately 2.5 cm x 4.0 cm area along the mid portion of the incision that has some granulation tissue. There is no active drainage from that site. Proximally, the incision appears to be essentially healed. Distally, there are some areas where there is some partial-thickness loss, but with granulation tissue. There is no significant cellulitis appreciated. No significant effusion is appreciated. She does not have significant tenderness to palpation about the right knee. Her thigh and calf are soft and nontender. Neurovascularly, she is intact. ASSESSMENT AND PLAN: A new VAC dressing was applied. At this point, she saw the GI doctor who thinks that it is possible that the nausea may be secondary to the Zyvox. The Zyvox has been stopped and daptomycin has been started since last night. For now, we are going to continue VAC dressing changes. She is going to continue on daptomycin and we will follow up with ID recommendations for the length of her daptomycin. We will also check ESR and C-reactive protein. We will also consider consulting Dr. Oliva for any wound care treatments. Hernan Watson MD
[2018-05-17] MEDS ORDERED: Sodium Bicarbonate 8.4% 100 MEQ in Dextrose 5% In Water 1,000 ML IV STA (21:28)
[2018-05-18] MEDS: Enoxaparin 60 mg Syringe SC SCH ×2 (09:37→21:42)
[2018-05-18] MEDS: Digoxin 125 mcg (0.125 mg) Tab PO SCH ×2 (09:47→10:06)
--- NOTE | 2018-05-18 11:20 | CP.PCM.CON ---
<PhaniBrown - Last Filed: 05/18/18 11:02> History of Present Illness - History of Present Illness History of Present Illness: Podiatry Consult Note for attending Dr. Oliva An 82 y/o female patient with PMH of HTN, CAD, a.fib, OA seen and evaluated at the bedside for VRE infection of R TKA. Patient is poor historian due to her general condition now. Patient looks in pain and depressed at the time of the encounter. Patient states that she had TKA at February 2018. She states that the s urgery went bad and got infected. Patient states that she had prothesis removed last april and antibiotic spacer placed. Patient states that she has pain in her surgery site. As per her medical chart She is now admitted because of worsening nausea and vomiting which apparently started even before [place] [facility] [place] She also has some lightheadedness and generalized weakness for the past 5 days. She denies fever or chills, no chest pain, no SOB, no cough or colds, no abdominal pain, no diarrhea, no dysuria. Patient had Wound VAC at the time of the encounter inher R knee wound site. She had cultures taken which showed VRE and she was on Zyvox. PMH: HTN, CAD s/p PCI, Afib (on Coumadin), OA PSH: R TKA (02/2018) and prosthesis removal with antibiotic spacer placement, ORIF R tibia (), PCI Allergies: Benadryl, Nitroglycerin (anaphylaxis), Penicillin (rash), chocolate (headache) Social Hx: Denies tobacco, EtOH or drug use. Lives alone. Walks with walker. Review of Systems - Review of Systems Review of Systems: As per HPI - Constitutional Constitutional: As Per HPI Past Patient History - Infectious Disease Hx of Infectious Diseases: None - Tetanus Immunizations Tetanus Immunization: Unknown - Past Medical History & Family History Past Medical History?: Yes - Past Social History Smoking Status: Never Smoked - CARDIAC Hx Cardiac Disorders: Yes (afib, CAD) Hx Congestive Heart Failure: Yes Hx Hypertension: Yes - PULMONARY Hx Respiratory Disorders: Yes Hx Pneumonia: Yes - NEUROLOGICAL Hx Neurological Disorder: Yes Hx Dizziness: Yes - HEENT Hx HEENT Problems: Yes (LAZY EYE LEFT EYE) Hx Cataracts: Yes - RENAL Hx Chronic Kidney Disease: No - ENDOCRINE/METABOLIC Hx Endocrine Disorders: No - HEMATOLOGICAL/ONCOLOGICAL Hx Blood Transfusions: Yes Hx Blood Transfusion Reaction: No - INTEGUMENTARY Hx Dermatological Problems: Yes Other/Comment: RIGHT KNEE SURGERY -WOUND VAC-KNEE IMMOBILIZER - MUSCULOSKELETAL/RHEUMATOLOGICAL Hx Musculoskeletal Disorders: Yes (ORIF RIGHT TIBIA 1989) Hx Arthritis: Yes Hx Degenerative Joint Disease: Yes Hx Falls: Yes Hx Fractures: Yes (RIGHT LEG ,ANKLE) Hx Osteoporosis: Yes Hx Unsteady Gait: Yes - GASTROINTESTINAL Hx Gastrointestinal Disorders: Yes (HEMORRHOIDS,CONSTIPATION) - GENITOURINARY/GYNECOLOGICAL Hx Genitourinary Disorders: Yes (PMB) - PSYCHIATRIC Hx Psychophysiologic Disorder: No Hx Substance Use: No - SURGICAL HISTORY Hx Mastectomy: No Other/Comment: ORIF RIGHT TIBIA 1989,BILATERAL CATARACT SX, - ANESTHESIA Hx Anesthesia Reactions: No (VOMITING) Hx Malignant Hyperthermia: No Meds Allergies/Adverse Reactions: Allergies Allergy/AdvReac Type Severity Reaction Status Date / Time diphenhydramine Allergy Severe unknown Verified 05/16/18 18:22 [From Benadryl] nitroglycerin Allergy Severe ANAPHYLAXIS Verified 05/16/18 18:22 pcn Allergy Severe RASH Uncoded 05/16/18 18:22 silk tape Allergy blisters Uncoded 05/16/18 18:22 chocolate candy AdvReac Severe HEADACHE Uncoded 05/16/18 18:22 - Medications Medications: Current Medications Aspirin (Ecotrin) 81 mg PO DAILY [facility] Last Admin: 05/18/18 10:08 Dose: Not Given Atenolol (Tenormin) 25 mg PO BID [facility] Last Admin: 05/18/18 10:07 Dose: Not Given Digoxin (Digoxin) 0.125 mg PO DAILY [facility] Last Admin: 05/18/18 10:06 Dose: Not Given Enoxaparin Sodium (Lovenox) 60 mg SC Q12H [facility]; Protocol Last Admin: 05/18/18 09:37 Dose: 60 mg Daptomycin 380 mg/ Sodium (Chloride) 100 mls @ 200 mls/hr IV Q24H [facility] Stop: 05/21/18 22:31 Last Admin: 05/17/18 21:47 Dose: 200 mls/hr Sodium Bicarbonate 100 meq/ (Dextrose) 1,100 mls @ 75 mls/hr IV .[id number] [facility] Stop: 05/18/18 12:07 Warfarin Sodium (Coumadin) 5 mg PO 1800 [facility]; Protocol Last Admin: 05/17/18 19:00 Dose: Not Given Physical Exam - Constitutional Appears: Toxic, In Acute Distress - Head Exam Head Exam: ATRAUMATIC, NORMOCEPHALIC - Extremities Exam Additional comments: R LE focused exam: Vasc: DP/PT faintly palpable. Cap refill< 3 sec to all digits. Temp gradient warm to cool. No edema. Multiple ecchymotic patches extends from the periwound area at the knee joint all the way down to the R ankle. Periwound erythema noted. Neuro: Gross and protective sensations are intact. Derm: An open wound measures [id number]. Minimal purulent drainage noted. No malodor. Base is mixed necrotic,granular and fibrous 40:40:20. No probe to bone, no tracking or undermining. Periwound erythema and ecchymosis noted. Positive clinical signs of infection. MSK: Sever pain on palpating the periwound area. Muscle power around the knee joint couldn't be assessed due to pain and guarding. Passive and active ROM could be performed with guarding at the level of the R foot and ankle. - Neurological Exam Neurological exam: Alert, Oriented x3 Results - Vital Signs Recent Vital Signs: Last Vital Signs Temp 97.5 F L 05/18/18 06:00 Pulse 90 05/18/18 06:00 Resp 18 05/18/18 06:00 BP 116/55 L 05/18/18 06:00 Pulse Ox 96 05/18/18 06:00 - Labs Result Diagrams: 05/17/18 09:30 05/17/18 09:30 Labs: Laboratory Results - last 24 hr 05/17/18 05/17/18 05/17/18 13:50 13:50 13:50 ESR 8 pCO2 pO2 46 HCO3 ABG pH ABG Total CO2 ABG O2 Saturation ABG O2 Content ABG Base Excess ABG Hemoglobin ABG Carboxyhemoglobin POC ABG HHb (Measured) ABG Methemoglobin ABG O2 Capacity VBG pH 7.25 L VBG pCO2 38.0 L VBG HCO3 16.7 L VBG Total CO2 17.9 L VBG O2 Sat (Calc) 82.7 H VBG Base Excess -9.9 L VBG Potassium 4.0 Hgb O2 Saturation Sodium 142.0 Chloride 103.0 Glucose 99 Lactate 12.1 H* FiO2 21.0 C-Reactive Protein 11.30 H Venous Blood Potassium 4.0 05/17/18 14:00 ESR pCO2 25 L pO2 110.0 H HCO3 13.8 L ABG pH 7.35 ABG Total CO2 14.6 L ABG O2 Saturation 99.5 H ABG O2 Content 12.3 L ABG Base Excess -10.5 L ABG Hemoglobin 8.9 L ABG Carboxyhemoglobin 1.4 POC ABG HHb (Measured) 0.5 ABG Methemoglobin 1.4 ABG O2 Capacity 12.4 L VBG pH VBG pCO2 VBG HCO3 VBG Total CO2 VBG O2 Sat (Calc) VBG Base Excess VBG Potassium Hgb O2 Saturation 96.7 Sodium Chloride Glucose Lactate FiO2 21.0 C-Reactive Protein Venous Blood Potassium Assessment & Plan - Assessment and Plan (Free Text) Assessment: 82 y/o F patient seen and evaluated at the bedside for infected R knee wound and osteomyelitis Plan: Patient seen and evaluated at the bedside. Plan discussed in details with attending Dr. Oliva. Charts, labs and vitals reviewed; Afebrile, No leukocytosis Wound culture collected, ordered and sent to the lab. Blood culture (05/16) Preliminary; No growth after 24 hours. Wound VAC removed. Wound cleaned with saline then dressed with xeroform, ABD and DSD. Bactroban ointment BID topical ordered to be added to the dressing starting from tomorrow. Ordered R knee 3 views x-ray. Ordered medical consult for Dr. Elio Hancock for Hyperbaric oxygen clearance. ID consulted; recommendations appreciated Continue IV Abx as per primary team. Podiatry will continue to Follow up the patient while in house. - Date & Time Date: 05/18/18 Time: 11:02 <Kristen Oliva - Last Filed: 05/31/18 15:45> Meds - Medications Medications: Current Medications Acetaminophen (Tylenol 325mg Tab) 650 mg PO Q6H PRN PRN Reason: Pain, moderate (4-7) Last Admin: 05/30/18 16:19 Dose: 650 mg Apixaban (Eliquis) 2.5 mg PO BID [facility]; Protocol Last Admin: 05/31/18 11:25 Dose: 2.5 mg Aspirin (Ecotrin) 81 mg PO DAILY [facility] Last Admin: 05/31/18 11:25 Dose: 81 mg Atenolol (Tenormin) 25 mg PO BID [facility] Last Admin: 05/31/18 11:25 Dose: 25 mg Atorvastatin Calcium (Lipitor) 20 mg PO DIN [facility] Last Admin: 05/30/18 17:32 Dose: 20 mg Digoxin (Lanoxin) 0.25 mg PO 1400 [facility] Last Admin: 05/30/18 15:33 Dose: 0.25 mg Enoxaparin Sodium (Lovenox) 60 mg SC Q12H [facility]; Protocol Last Admin: 05/19/18 21:00 Dose: Not Given Mirtazapine (Remeron) 15 mg PO HS [facility] Last Admin: 05/30/18 21:15 Dose: Not Given Ondansetron HCl (Zofran Inj) 4 mg IVP Q6H PRN PRN Reason: Nausea/Vomiting Pantoprazole Sodium (Protonix Inj) 40 mg IVP DAILY [facility] Last Admin: 05/31/18 11:25 Dose: 40 mg Results - Vital Signs Recent Vital Signs: Last Vital Signs Temp 98.2 F 05/31/18 14:00 Pulse 59 L 05/31/18 14:00 Resp 20 05/31/18 14:00 BP 130/63 05/31/18 14:00 Pulse Ox 97 05/31/18 14:00 - Labs Result Diagrams: 05/31/18 07:00 05/31/18 07:00 Labs: Laboratory Results - last 24 hr 05/31/18 05/31/18 05/31/18 07:00 07:00 07:00 WBC 6.5 D RBC 3.20 L Hgb 9.0 L Hct 28.2 L MCV 88.1 MCH 28.1 MCHC 31.9 RDW 18.7 H Plt Count 212 MPV 10.9 Gran % 72.6 H Lymph % (Auto) 13.8 L [place] % (Auto) 12.1 H Eos % (Auto) 0.6 L Baso % (Auto) 0.9 Gran # 4.69 Lymph # (Auto) 0.9 L [place] # (Auto) 0.8 H Eos # (Auto) 0.0 Baso # (Auto) 0.06 PT 16.7 H INR 1.44 Sodium 134 Potassium 4.0 Chloride 105 Carbon Dioxide 25 Anion Gap 9 L BUN 10 Creatinine 0.5 L Est GFR ( Amer) > 60 Est GFR (Non-Af Amer) > 60 Random Glucose 91 Calcium 8.0 L Total Bilirubin 0.9 AST 30 ALT 68 H Alkaline Phosphatase 126 Total Protein 5.5 L Albumin 2.6 L Globulin 2.9 Albumin/Globulin Ratio 0.9 L Attending/Attestation - Attestation I have personally seen and examined this patient.: Yes I have fully participated in the care of the patient.: Yes I have reviewed all pertinent clinical information: Yes
--- NOTE | 2018-05-18 12:11 | PN ---
DATE: 05/18/2018 SUBJECTIVE: The patient regurgitates liquids shortly after swallowing liquid. This is associated with cough with production of whitish brownish phlegm. A chest x-ray performed on admission was negative for infiltrates. She denies any abdominal pain, hematemesis, fevers or chills. PHYSICAL EXAMINATION: VITAL SIGNS: Reveal temperature of 97.5, blood pressure 116/55, heart rate of 90. HEENT: Reveal sclerae to be white. Oral mucosa is moist. Conjunctivae pink. NECK: Supple. CHEST: Reveal distant breath sounds. HEART: Reveals an irregularly irregular rate. ABDOMEN: Soft and nontender. EXTREMITIES: Reveal a wound VAC in her right knee. LABORATORY DATA: No new laboratory data are available. 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 The etiology of her symptoms remain unclear to me. Differential includes side effect of Zyvox which has been stopped, functional vomiting, rumination syndrome, oropharyngeal dysphagia. The patient appears to get the liquid down and then begins coughing, one must also rule out aspiration. RECOMMENDATIONS: 1. We will request a barium swallow. 2. We will request a swallowing evaluation. 3. The patient may benefit from ENT evaluation. Emile Power MD
--- NOTE | 2018-05-18 12:58 | CP.PCM.PN ---
Subjective - Date & Time of Evaluation Date of Evaluation: 05/18/18 Time of Evaluation: 11:40 - Subjective Subjective: No fevers, still having nausea, still feels weak, no abdominal pain. Objective - Vital Signs/Intake and Output Vital Signs (last 24 hours): Temp Pulse Resp BP Pulse Ox 97.4 F L 74 16 123/71 97 05/17/18 06:00 05/17/18 06:00 05/17/18 06:00 05/17/18 06:00 05/17/18 06:00 Intake and Output: 05/17/18 05/17/18 06:59 18:59 Output Total 400 Balance -400 - Medications Medications: Current Medications Aspirin (Ecotrin) 81 mg PO DAILY [facility] Last Admin: 05/17/18 10:19 Dose: Not Given Atenolol (Tenormin) 25 mg PO BID [facility] Last Admin: 05/17/18 10:19 Dose: Not Given Digoxin (Digoxin) 0.125 mg PO DAILY [facility] Last Admin: 05/17/18 10:19 Dose: Not Given Enoxaparin Sodium (Lovenox) 60 mg SC Q12H [facility]; Protocol Last Admin: 05/17/18 10:13 Dose: 60 mg Daptomycin 380 mg/ Sodium (Chloride) 100 mls @ 200 mls/hr IV Q24H [facility] Stop: 05/21/18 22:31 Last Admin: 05/17/18 01:49 Dose: 200 mls/hr Sodium Chloride (Sodium Chloride 0.9%) 1,000 mls @ 75 mls/hr IV .[id number] [facility] Last Admin: 05/17/18 01:49 Dose: 75 mls/hr Warfarin Sodium (Coumadin) 5 mg PO 1800 [facility]; Protocol - Labs Labs: 05/17/18 09:30 05/17/18 09:30 PT 21.8 SECONDS (9.4-12.5) H 05/16/18 19:12 INR 1.89 05/16/18 19:12 APTT 35.2 Seconds (25.1-36.5) 05/16/18 19:12 - Constitutional Appears: Chronically Ill Assessment and Plan - Assessment and Plan (Free Text) Plan: Assessment nausea and vomiting, R/O due to meds R/O functional gastrointestinal issue 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, S/P debr idement, S/P removal, placement of antibiotic spacer CAD S/P PCI HTN atrial fibrillation osteoarthritis S/P right knee replacement Plan patient has been on Zyvox and it is now discontinued and on Daptomymcin - since she is having nausea and vomiting, will change Zyvox to Daptomycin - CPK level is less than 20 - needed 6 weeks of antibiotics from 04/08/2018 but may prolong Daptomycin a little bit longer discussed with Dr. Hernandez and Dr. Power - patient may need further tests to see why patient is having nausea, vomiting lactic acid levels are starting to trend downward, patient continued on IV fluids - I discussed with Dr. Power and the patient can be continued on saline with dextrose as well as 3% amino acids for now as per Dr. Power - I have discussed this with one of the daughters of the patient that this is Dr. Power's recommendation - I spoke with the nurse that this should be ordered by Dr. Hernandez - the daughter asked if I agreed with this, I told her that this is the recommendation of Dr. Power and although I am a medical practitioner, this is beyond my expertise - I explained to her that her lactic acid should be continued to be monitored and that it is decreasing and trending downwards and that we should continue IV fluids will continue to monitor clinically
[2018-05-18] MEDS: Dextrose 5%/0.45% NS 1,000 ML IV SCH (13:07)
--- NOTE | 2018-05-18 14:20 | RAD ---
Date of service: 05/18/2018 HISTORY: rule out infiltrates COMPARISON: 05/16/2018. FINDINGS: LUNGS: The lungs are well inflated and clear. PLEURA: No pleural effusions or pneumothorax. CARDIOVASCULAR: Persistent moderate cardiomegaly. No aortic atherosclerotic calcification present. OSSEOUS STRUCTURES: Within normal limits for the patient's age. VISUALIZED UPPER ABDOMEN: Normal. OTHER FINDINGS: None. IMPRESSION: No active pulmonary disease.
--- NOTE | 2018-05-18 15:52 | PN ---
DATE: 05/18/2018 SUBJECTIVE: The patient has no complaints of any chest pain. No shortness of breath. No headaches or dizziness. She states she continues to have vomiting, but she does feel better than yesterday. PHYSICAL EXAMINATION: VITAL SIGNS: Temperature is 97.5, pulse is 90, blood pressure 116/55, respirations 18. GENERAL: The patient is lying in bed, flat, comfortable. HEENT: No oral lesion. Anicteric sclerae. Moist mucosa. NECK: No JVD, adenopathy, or thyromegaly. CARDIOVASCULAR: S1 and S2, regular. No murmurs, rubs, or gallops. LUNGS: Clear to auscultation bilaterally. No wheeze, rales, or rhonchi. ABDOMEN: Bowel sounds are positive, soft, nontender and nondistended. EXTREMITIES: No cyanosis, clubbing or edema. LABORATORY DATA: White count 16, hemoglobin 9.1. Creatinine is 1.2. ASSESSMENT: 1. Lactic acidosis. 2. Anion gap metabolic acidosis secondary to linezolid. 3. Hypovolemia, improved. 4. Nausea and vomiting. 5. Right knee infection, on daptomycin. 6. Coronary artery disease. 7. Hypertension. 8. Atrial fibrillation, on anticoagulation. 9. Penicillin allergy. PLAN: The patient is currently on Coumadin for anticoagulation. The patient was subtherapeutic. She continues to have an elevated lactic acid, although it is improving. She is on digoxin. She is going to continue with aspirin daily. She is on Lovenox for anticoagulation. We will repeat her blood work tomorrow. I did speak to Dr. Power regarding the case yesterday. Ajay Waller MD
[2018-05-18] MEDS: Mupirocin 2% Ointment 15 GM TUBE NS SCH (18:38)
[2018-05-19] MEDS: Dextrose 5%/0.45% NS 1,000 ML IV SCH (02:12)
[2018-05-19 08:57] LABS: HEMOGLOBIN 9.1 g/dL (12.0-16.0); MEAN CELL VOLUME 85.5 fl (80.0-105.0); MEAN CORPUSCULAR HEMOGLOBIN 28.6 pg (25.0-35.0); MEAN CORPUSCULAR HGB CONC 33.5 g/dl (31.0-37.0); MEAN PLATELET VOLUME 10.1 fl (7.0-11.0); RBC 3.18 10^6/uL (3.5-6.1); RED CELL DISTRIBUTION WIDTH 16.8 % (11.5-14.5); WHITE BLOOD COUNT 5.7 10^3/uL (4.5-11.0)
[2018-05-19 09:02] LABS: INR 1.43; PROTHROMBIN TIME 16.6 SECONDS (9.4-12.5)
[2018-05-19 09:11] LABS: ALB/GLOB RATIO 1.1 (1.1-1.8); ALBUMIN 2.8 g/dL (3.0-4.8); ALT/SGPT 18 U/L (7-56); AST/SGOT 22 U/L (14-36); BLOOD UREA NITROGEN 57 mg/dL (7-21); CALCIUM 8.8 mg/dL (8.4-10.5); GFR NON-AFRICAN AMERICAN 53
[2018-05-19 09:12] LABS: PLATELET COUNT 49 10^3/uL (120.0-450.0)
[2018-05-19] MEDS ORDERED: DEXTROSE IV SCH (09:41)
[2018-05-19] MEDS ORDERED: [UNRECOGNIZED DRUG - OTHER] IV SCH (09:41)
[2018-05-19] MEDS ORDERED: POTASSIUM CHLORIDE IV SCH (09:41)
--- NOTE | 2018-05-19 10:00 | RAD ---
Date of service: 05/18/2018 PROCEDURE: Right knee HISTORY: infected wound, OM right knee COMPARISON: 04/08/2018 TECHNIQUE: Four views FINDINGS: There has been previous removal of the right knee prosthesis. The joint space is now filled with cement. There is some increased separation of the cement bone interface of the distal femur. IMPRESSION: As above
[2018-05-19] MEDS: Enoxaparin 60 mg Syringe SC SCH ×2 (10:04→21:00)
--- NOTE | 2018-05-19 10:31 | CP.PCM.PN ---
<Gloria Whiteside - Last Filed: 05/19/18 10:52> Subjective - Date & Time of Evaluation Date of Evaluation: 05/19/18 Time of Evaluation: 07:30 - Subjective Subjective: Gloria Whiteside DO, PGY-2: Dr. Waller Progress Note Patient was seen and examined at bedside. She requested for water but remains NPO. She will be getting TPN starting today. She did not complain of any nausea or vomiting this morning. Lactate appears to be trending down. Objective - Vital Signs/Intake and Output Vital Signs (last 24 hours): Temp Pulse Resp BP Pulse Ox 97.6 F 91 H 16 116/64 95 05/19/18 06:00 05/19/18 06:00 05/19/18 06:00 05/19/18 06:00 05/19/18 06:00 Intake and Output: 05/19/18 05/19/18 06:59 18:59 Intake Total 0 Output Total 1000 Balance -1000 - Medications Medications: Current Medications Aspirin (Ecotrin) 81 mg PO DAILY [facility] Last Admin: 05/18/18 10:08 Dose: Not Given Atenolol (Tenormin) 25 mg PO BID [facility] Last Admin: 05/18/18 17:37 Dose: Not Given Digoxin (Digoxin) 0.125 mg PO DAILY [facility] Last Admin: 05/18/18 10:06 Dose: Not Given Enoxaparin Sodium (Lovenox) 60 mg SC Q12H [facility]; Protocol Last Admin: 05/19/18 10:04 Dose: Not Given Fat Emulsion Intravenous (Intralipid 20%) 250 mls @ 21 mls/hr IV MWF@1800 [facility] Multivitamins/Vitamin C 10 ml/Amino Acids/Electrolytes/Dextrose 2,010 mls @ 83 mls/hr IV .Q24H [facility] Potassium Chloride 60 meq/ (Dextrose/Sodium Chloride) 1,030 mls @ 75 mls/hr IV .[id number] [facility] Mupirocin (Bactroban Ointment) 0 gm NS BID [facility] Stop: 05/23/18 10:01 Last Admin: 05/18/18 18:38 Dose: Not Given Warfarin Sodium (Coumadin) 8 mg PO 1800 [facility] - Labs Labs: 05/19/18 08:30 05/19/18 08:30 PT 16.6 SECONDS (9.4-12.5) H 05/19/18 08:30 INR 1.43 05/19/18 08:30 APTT 35.2 Seconds (25.1-36.5) 05/16/18 19:12 - Constitutional Appears: Non-toxic, No Acute Distress - Head Exam Head Exam: ATRAUMATIC, NORMOCEPHALIC - Eye Exam Eye Exam: EOMI, Normal appearance - ENT Exam ENT Exam: Mucous Membranes Dry - Neck Exam Neck Exam: Normal Inspection - Respiratory Exam Respiratory Exam: Clear to Ausculation Bilateral, NORMAL BREATHING PATTERN. absent: Accessory Muscle Use - Cardiovascular Exam Cardiovascular Exam: RRR, +S1, +S2 - GI/Abdominal Exam GI & Abdominal Exam: Soft, Normal Bowel Sounds - Extremities Exam Extremities Exam: Normal Inspection. absent: Calf Tenderness - Neurological Exam Neurological Exam: Alert, Awake, Oriented x3 - Psychiatric Exam Psychiatric exam: Normal Affect, Normal Mood - Skin Skin Exam: Dry, Intact, Normal Color, Warm Assessment and Plan - Assessment and Plan (Free Text) Assessment: 82-year-old female with a PMH of A. 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 ID has switched patient to Daptomycin and recommends an increase in duration of therapy. GI is also following and the patient is now on TPN. Patient is also subtherapeutic with her INR with it being 1.42 today, and is currently being bridged on to Coumadin with therapeutic dose of Lovenox. Labs show a progressive fall in the patients platelets count warranting hematology consult, Dr. Pritchard. We will continue with rate control for the patient's atrial fibrillation with Atenolol and Digoxin. Daptomycin for VRE in the right joint space and TPN for nutrional support. Aspirin for CAD. Case was reviewed and discussed with attending physician, Dr. Waller <Ajay Waller - Last Filed: 05/19/18 20:37> Objective - Vital Signs/Intake and Output Vital Signs (last 24 hours): Temp Pulse Resp BP Pulse Ox 97.4 F L 90 18 125/74 96 05/19/18 14:00 05/19/18 14:00 05/19/18 14:00 05/19/18 14:00 05/19/18 14:00 Intake and Output: 05/19/18 05/20/18 18:59 06:59 Output Total 700 Balance -700 - Medications Medications: Current Medications Aspirin (Ecotrin) 81 mg PO DAILY [facility] Last Admin: 05/19/18 10:46 Dose: Not Given Atenolol (Tenormin) 25 mg PO BID [facility] Last Admin: 05/19/18 17:10 Dose: Not Given Digoxin (Digoxin) 0.125 mg PO DAILY [facility] Last Admin: 05/19/18 10:46 Dose: Not Given Enoxaparin Sodium (Lovenox) 60 mg SC Q12H [facility]; Protocol Last Admin: 05/19/18 10:04 Dose: Not Given Fat Emulsion Intravenous (Intralipid 20%) 250 mls @ 21 mls/hr IV MWF@1115 [facility] Last Admin: 05/19/18 11:48 Dose: 21 mls/hr Multivitamins/Vitamin C 10 ml/Amino Acids/Electrolytes/Dextrose 2,010 mls @ 83 mls/hr IV .Q24H [facility] Last Admin: 05/19/18 11:48 Dose: 83 mls/hr Mupirocin (Bactroban Ointment) 0 gm NS BID [facility] Stop: 05/23/18 10:01 Last Admin: 05/19/18 17:10 Dose: Not Given Ondansetron HCl (Zofran Inj) 4 mg IVP Q4H PRN PRN Reason: Nausea/Vomiting Pantoprazole Sodium (Protonix Inj) 40 mg IVP DAILY [facility] Last Admin: 05/19/18 18:13 Dose: 40 mg Warfarin Sodium (Coumadin) 8 mg PO 1800 [facility] Last Admin: 05/19/18 17:10 Dose: Not Given - Labs Labs: 05/19/18 08:30 05/19/18 08:30 PT 16.6 SECONDS (9.4-12.5) H 05/19/18 08:30 INR 1.43 05/19/18 08:30 APTT 35.2 Seconds (25.1-36.5) 05/16/18 19:12 Assessment and Plan - Assessment and Plan (Free Text) Assessment: Pt seen and examined. I have reviewed the note of the medical technical writer and agree with it. I have discussed the assessment and plan with the resident. I have reviewed the patient's labs and medications. Pt with N/V of unknown etiology. She also has thrombcytopenia which is new. She was on Linezolid and is off. She is finishing with her Abx. I spoke to ID about her Abx. I spoke to Dr Power and Dr Olguin, who will be a second opinion. I spoke to Pharmacy for PPN to be started [facility]. I spoke to the daughter 3 times today including a face to face di scussion about the pt. She is not doing well. She is DNR according to daughter. She is on Lovenox for her A fib. She is not able to take PO meds. Prognosis is poor. Spoke to Dr Narvaez's [employer] OPERATOR.
[2018-05-19] MEDS: Mupirocin 2% Ointment 15 GM TUBE NS SCH ×2 (10:46→17:10)
[2018-05-19] MEDS: Digoxin 125 mcg (0.125 mg) Tab PO SCH (10:46)
[2018-05-19] MEDS ORDERED: Fat Emulsion 20% IV 250 ML IV SCH (11:15)
--- NOTE | 2018-05-19 11:39 | CP.PCM.PN ---
<Giuseppe Freed - Last Filed: 05/19/18 11:35> Subjective - Date & Time of Evaluation Date of Evaluation: 05/19/18 Time of Evaluation: 11:36 - Subjective Subjective: Podiatry progress note for Dr. Oliva 82 yo female seen and evaluated at bedside with Dr. Oliva. See in distress, coughing constantly and eyes closed for the duration of the visit. Patients relatives in room, states patient has been vomiting every day since march and has not been able to eat any food for days. Patient states that she is in some pain at her right knee from the surgical site and nurse informed that the dressings were soaked with blood this morning. Complains of N/V, no fever or chills, SOB present, no CP. Has no other pedal complaints Objective - Vital Signs/Intake and Output Vital Signs (last 24 hours): Temp Pulse Resp BP Pulse Ox 97.6 F 91 H 16 116/64 95 05/19/18 06:00 05/19/18 06:00 05/19/18 06:00 05/19/18 06:00 05/19/18 06:00 Intake and Output: 05/19/18 05/19/18 06:59 18:59 Intake Total 0 Output Total 1000 Balance -1000 - Medications Medications: Current Medications Aspirin (Ecotrin) 81 mg PO DAILY [facility] Last Admin: 05/19/18 10:46 Dose: Not Given Atenolol (Tenormin) 25 mg PO BID [facility] Last Admin: 05/19/18 10:46 Dose: Not Given Digoxin (Digoxin) 0.125 mg PO DAILY [facility] Last Admin: 05/19/18 10:46 Dose: Not Given Enoxaparin Sodium (Lovenox) 60 mg SC Q12H [facility]; Protocol Last Admin: 05/19/18 10:04 Dose: Not Given Fat Emulsion Intravenous (Intralipid 20%) 250 mls @ 21 mls/hr IV MWF@1115 [facility] Multivitamins/Vitamin C 10 ml/Amino Acids/Electrolytes/Dextrose 2,010 mls @ 83 mls/hr IV .Q24H [facility] Mupirocin (Bactroban Ointment) 0 gm NS BID [facility] Stop: 05/23/18 10:01 Last Admin: 05/19/18 10:46 Dose: Not Given Warfarin Sodium (Coumadin) 8 mg PO 1800 [facility] - Labs Labs: 05/19/18 08:30 05/19/18 08:30 PT 16.6 SECONDS (9.4-12.5) H 05/19/18 08:30 INR 1.43 05/19/18 08:30 APTT 35.2 Seconds (25.1-36.5) 05/16/18 19:12 - Constitutional Appears: Well, Non-toxic, No Acute Distress - Head Exam Head Exam: ATRAUMATIC, NORMOCEPHALIC - Extremities Exam Additional comments: R LE focused exam: Vasc: DP/PT faintly palpable. Cap refill< 3 sec to all digits. Temp gradient warm to cool. No edema. Multiple ecchymotic patches extends from the periwound area at the knee joint all the way down to the R ankle. Periwound erythema noted. Neuro: Gross and protective sensations are intact. Derm: An open wound measures [id number]. Minimal purulent drainage noted. No malodor. Base is mixed necrotic,granular and fibrous 40:40:20. No probe to bone, no tracking or undermining. Periwound erythema and ecchymosis noted. Positive clinical signs of infection. MSK: Sever pain on palpating the periwound area. Muscle power around the knee joint couldn't be assessed due to pain and guarding. Passive and active ROM could be performed with guarding at the level of the R foot and ankle. - Neurological Exam Neurological Exam: Alert, Awake - Psychiatric Exam Psychiatric exam: Normal Affect, Normal Mood Assessment and Plan - Assessment and Plan (Free Text) Assessment: 82 yo female with infected right knee wound and osteomyelitis Plan: Patient seen and evaluated at the bedside with Dr. Oliva Charts, labs and vitals reviewed; Afebrile, No leukocytosis Wound culture collected, ordered and sent to the lab - f/u Blood culture (05/16) Preliminary; No growth after 24 hours. Wound cleaned with saline then dressed with xeroform, ABD and DSD, bactroban to be applied at next change. Dressings to be changed twice daily, once by podiatry team and once by nursing team Right knee x-ray - prosthesis removed, cement spacer in place Hyperbaric oxygen on hold, patient health needs to improve ID consulted; recommendations appreciated Continue IV Abx as per primary team. Podiatry will continue to Follow up the patient while in house. <Kristen Oliva - Last Filed: 05/31/18 15:43> Objective - Vital Signs/Intake and Output Vital Signs (last 24 hours): Temp Pulse Resp BP Pulse Ox 98.2 F 59 L 20 130/63 97 05/31/18 14:00 05/31/18 14:00 05/31/18 14:00 05/31/18 14:00 05/31/18 14:00 - Medications Medications: Current Medications Acetaminophen (Tylenol 325mg Tab) 650 mg PO Q6H PRN PRN Reason: Pain, moderate (4-7) Last Admin: 05/30/18 16:19 Dose: 650 mg Apixaban (Eliquis) 2.5 mg PO BID [facility]; Protocol Last Admin: 05/31/18 11:25 Dose: 2.5 mg Aspirin (Ecotrin) 81 mg PO DAILY [facility] Last Admin: 05/31/18 11:25 Dose: 81 mg Atenolol (Tenormin) 25 mg PO BID [facility] Last Admin: 05/31/18 11:25 Dose: 25 mg Atorvastatin Calcium (Lipitor) 20 mg PO DIN [facility] Last Admin: 05/30/18 17:32 Dose: 20 mg Digoxin (Lanoxin) 0.25 mg PO 1400 [facility] Last Admin: 05/30/18 15:33 Dose: 0.25 mg Enoxaparin Sodium (Lovenox) 60 mg SC Q12H [facility]; Protocol Last Admin: 05/19/18 21:00 Dose: Not Given Mirtazapine (Remeron) 15 mg PO HS [facility] Last Admin: 05/30/18 21:15 Dose: Not Given Ondansetron HCl (Zofran Inj) 4 mg IVP Q6H PRN PRN Reason: Nausea/Vomiting Pantoprazole Sodium (Protonix Inj) 40 mg IVP DAILY [facility] Last Admin: 05/31/18 11:25 Dose: 40 mg - Labs Labs: 05/31/18 07:00 05/31/18 07:00 PT 16.7 SECONDS (9.4-12.5) H 05/31/18 07:00 INR 1.44 05/31/18 07:00 APTT 35.2 Seconds (25.1-36.5) 05/16/18 19:12 Attending/Attestation - Attestation I have personally seen and examined this patient.: Yes I have fully participated in the care of the patient.: Yes I have reviewed all pertinent clinical information, including history, physical exam and plan: Yes
--- NOTE | 2018-05-19 13:02 | CP.PCM.PN ---
Subjective - Date & Time of Evaluation Date of Evaluation: 05/19/18 Time of Evaluation: 10:35 - Subjective Subjective: Patient is still having difficulties in swallowing, has some nausea, no abdominal pain, no fevers, still with pain in the right knee but has not increased. Objective - Vital Signs/Intake and Output Vital Signs (last 24 hours): Temp Pulse Resp BP Pulse Ox 97.5 F L 90 18 116/55 L 96 05/18/18 06:00 05/18/18 06:00 05/18/18 06:00 05/18/18 06:00 05/18/18 06:00 Intake and Output: 05/18/18 05/18/18 06:59 18:59 Output Total 400 Balance -400 - Medications Medications: Current Medications Aspirin (Ecotrin) 81 mg PO DAILY [facility] Last Admin: 05/18/18 10:08 Dose: Not Given Atenolol (Tenormin) 25 mg PO BID [facility] Last Admin: 05/18/18 10:07 Dose: Not Given Digoxin (Digoxin) 0.125 mg PO DAILY [facility] Last Admin: 05/18/18 10:06 Dose: Not Given Enoxaparin Sodium (Lovenox) 60 mg SC Q12H [facility]; Protocol Last Admin: 05/18/18 09:37 Dose: 60 mg Daptomycin 380 mg/ Sodium (Chloride) 100 mls @ 200 mls/hr IV Q24H [facility] Stop: 05/21/18 22:31 Last Admin: 05/17/18 21:47 Dose: 200 mls/hr Dextrose/Sodium Chloride (Dextrose 5%/0.45% Ns 1000 Ml) 1,000 mls @ 75 mls/hr IV .[id number] [facility] Mupirocin (Bactroban Ointment) 0 gm NS BID [facility] Stop: 05/23/18 10:01 Warfarin Sodium (Coumadin) 5 mg PO 1800 [facility]; Protocol Last Admin: 05/17/18 19:00 Dose: Not Given - Labs Labs: 05/17/18 09:30 05/17/18 09:30 PT 21.8 SECONDS (9.4-12.5) H 05/16/18 19:12 INR 1.89 05/16/18 19:12 APTT 35.2 Seconds (25.1-36.5) 05/16/18 19:12 - Constitutional Appears: Chronically Ill - Head Exam Head Exam: NORMAL INSPECTION - ENT Exam Additional comments: mouth with thick mucus and saliva stuck to the dentures - Extremities Exam Additional comments: right knee with scab over the anterior surface with some bleeding noted Assessment and Plan - Assessment and Plan (Free Text) Plan: Assessment nausea and vomiting, R/O due to meds R/O functional gastrointestinal issue R/O ENT issue 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 Hernandez, she already has had almost 6 weeks of antibiotics (since 04/08/2018) and there is concern about the thrombocytopenia - the thrombocytopenia is probably multifactorial and since we are unable to rule out meds as associated with the thrombocytopenia, will d/c Daptomycin and observe discussed with Dr. Hernandez and Dr. Power - patient may need further tests to see why patient is having nausea, vomiting lactic acid levels are starting to trend downward, patient continued on IV fluids - I discussed with Dr. Power and the patient can be continued on saline with dextrose as well as 3% amino acids for now as per Dr. Poewr - I have discussed this with one of the daughters of the patient 05/18/[address] Power's recommendation - I spoke with the nurse on 05/18/2018 that this should be ordered by Dr. Hernandez - I talked to Dr. Hernandez today and confirmed that he was contacted about this and that Dr. Power needed to clarify this - Dr. Hernandez has ordered PPN this morning - I spoke with the daughter that I did not order the IV nutrition yesterday but did facilitate and told the nurse yesterday that Dr. Hernandez has to order it and he was contacted yesterday by the nurse talked to Dr. Oliva - she initially considered hyperbaric therapy but after seeing patient, will be deferring it - will do local wound care on the knee will continue to monitor clinically
--- NOTE | 2018-05-19 15:51 | CON ---
DATE: 05/19/2018 NEUROLOGY CONSULTATION CHIEF COMPLIANT: Evaluation for dysphagia. HISTORY OF PRESENT ILLNESS: An 82-year-old woman with history of AFib on Coumadin, coronary artery disease, hypertension, osteoarthritis, VRE in the right knee on antibiotics, was consulted for intractable vomiting which was presumed psychogenic in the past. Intractable nausea and vomiting secondary to medication effect in the past, was called for dysphagia. There is no evidence from neuro examination of any neuromuscular diseases such as myasthenia gravis or ALS. There is no evidence of any double vision, no head dropping, no fasciculation seen on the extremities or the tongue. Speech is hypophonic but is able to enunciate and move all extremities. Patient is very depressed. Does not want me to fully examine though take complete history, though I got through with the with the help of the chart. She follows simple commands and moving all extremities. Withdraws to localized and noxious stimulus. ALLERGIES: ALLERGIC TO DIPHENHYDRAMINE, PENICILLIN, NITROGLYCERIN, CHOCOLATE, CANDY, SILK TAPE. REVIEW OF SYSTEMS: A 14-point review of systems is negative except as per the HPI. FAMILY HISTORY: Noncontributory. MEDICATIONS: Reviewed by nurses' reconciliation sheet. SOCIAL HISTORY: No illicit drug use, smoking or EtOH abuse. LABORATORY DATA: Sodium is 146, potassium 3.1, chloride 112, carbon dioxide 19, BUN of 57, creatinine of 1, random glucose of 158. PHYSICAL EXAMINATION: VITAL SIGNS: Temperature 96.7, pulse rate of 91, blood pressure 116/64, respiratory rate 16, oxygen saturation 90% on room air. GENERAL: The patient is sitting up in bed with a depressed, flat affect. HEENT: Atraumatic, normocephalic. PERRLA. Extraocular muscles intact. NECK: Supple. No JVD. No adenopathy noted. LUNGS: Clear to auscultation. No adventitious sounds. HEART: S1 and S2. Normal rate and rhythm. No murmurs, rubs or gallops. ABDOMEN: Soft, nontender and nondistended. Bowel sounds are present. EXTREMITIES: No clubbing. No cyanosis. Peripheral pulses 2+ felt bilaterally. Right knee is with a scab over the anterior surface with some bleeding noted. NEUROLOGIC: The patient is alert and oriented to person, place and year. Recall after 5 minutes is 0/3. Poor attention span. Slow thought process. Very depressed affect. Judgment is somewhat poor. Cranial nerves II through XII are intact. Motor Exam: Slightly increased tone throughout. Moves all extremities equally. Very deconditioned looking. No pronator drift seen. Sensory: Decreased light touch and pinprick up to the calves bilaterally. Decreased vibration of the toes. DTRs are 2+ throughout, 1 at both knees and ankles. Coordination and gait deferred for now. There is no evidence of fasciculations on the extremities on neuro examination. No evidence of head dropping or no complaints of double vision. IMPRESSION: Dysphagia could be secondary to more of a functional gastrointestinal issue versus stricture versus cognitive slowing causing decreased slowing in timing. At this time, we will recommend: 1. Modify Barium swallow. 2. Follow with Gastroenterology's recommendations. 3. Psychiatric evaluation for acute depression. 4. Physical therapy and occupational therapy evaluation. 5. At this time, I do not think there is anything neurologic since she has a CAT scan of the head on 04/23/2018, which showed no acute intracranial abnormalities. At this time, continue with ID's recommendations in regards to her underlying antibiotics and avoid any sedative medications. Thank you for this consult. Luke Laboy MD
--- NOTE | 2018-05-19 17:04 | CP.PCM.CON ---
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 Patient notes daily vomiting for the last two months to oral intake. States she vomited three to four times today to drinking liquids but is able to tolerate ice chips. Admits to associated coughing with attempted oral intake. Prior workup revealed EGD 04/28/18 showing gastritis and discontinuation of zyvox for possible side effect of vomiting. Notes about a 30 pound unintentional weight loss confirmed on medical record review. Denies hematemesis, heartburn, acid reflux, bloating, abdominal pain, diarrhea, constipation, melena, or hematochezia. Patient denies prior colonoscopy. Family History- denies stomach cancer, colon cancer Social History- denies tobacco, alcohol, illicit drug use Surgical History- TKR 02/2018, TKR removal 04/2018, D&C 02/2017 Review of Systems - Review of Systems Review of Systems: 12-point review of systems negative except for as above Past Patient History - Infectious Disease Hx of Infectious Diseases: None - Tetanus Immunizations Tetanus Immunization: Unknown - Past Medical History & Family History Past Medical History?: Yes - Past Social History Smoking Status: Never Smoked - CARDIAC Hx Cardiac Disorders: Yes Hx Congestive Heart Failure: Yes Hx Hypercholesterolemia: Yes Hx Hypertension: Yes - PULMONARY Hx Respiratory Disorders: Yes Hx Pneumonia: Yes - NEUROLOGICAL Hx Neurological Disorder: Yes Hx Dizziness: Yes - HEENT Hx HEENT Problems: Yes (LAZY EYE LEFT EYE) Hx Cataracts: Yes - RENAL Hx Chronic Kidney Disease: No - ENDOCRINE/METABOLIC Hx Endocrine Disorders: No - HEMATOLOGICAL/ONCOLOGICAL Hx Blood Transfusions: Yes Hx Blood Transfusion Reaction: No - INTEGUMENTARY Hx Dermatological Problems: Yes Other/Comment: RIGHT KNEE SURGERY -WOUND VAC-KNEE IMMOBILIZER - MUSCULOSKELETAL/RHEUMATOLOGICAL Hx Musculoskeletal Disorders: Yes (ORIF RIGHT TIBIA 1989) Hx Arthritis: Yes Hx Degenerative Joint Disease: Yes Hx Falls: Yes Hx Fractures: Yes (RIGHT LEG ,ANKLE) Hx Osteoporosis: Yes Hx Unsteady Gait: Yes - GASTROINTESTINAL Hx Gastrointestinal Disorders: Yes (HEMORRHOIDS,CONSTIPATION) - GENITOURINARY/GYNECOLOGICAL Hx Genitourinary Disorders: Yes (PMB) - PSYCHIATRIC Hx Psychophysiologic Disorder: No Hx Substance Use: No - SURGICAL HISTORY Hx Mastectomy: No Other/Comment: ORIF RIGHT TIBIA 1990,BILATERAL CATARACT SX, - ANESTHESIA Hx Anesthesia Reactions: No (VOMITING) Hx Malignant Hyperthermia: No Meds Allergies/Adverse Reactions: Allergies Allergy/AdvReac Type Severity Reaction Status Date / Time diphenhydramine Allergy Severe unknown Verified 05/16/18 18:22 [From Benadryl] nitroglycerin Allergy Severe ANAPHYLAXIS Verified 05/16/18 18:22 pcn Allergy Severe RASH Uncoded 05/16/18 18:22 silk tape Allergy blisters Uncoded 05/16/18 18:22 chocolate candy AdvReac Severe HEADACHE Uncoded 05/16/18 18:22 - Medications Medications: Current Medications Aspirin (Ecotrin) 81 mg PO DAILY [facility] Last Admin: 05/19/18 10:46 Dose: Not Given Atenolol (Tenormin) 25 mg PO BID [facility] Last Admin: 05/19/18 10:46 Dose: Not Given Digoxin (Digoxin) 0.125 mg PO DAILY [facility] Last Admin: 05/19/18 10:46 Dose: Not Given Enoxaparin Sodium (Lovenox) 60 mg SC Q12H [facility]; Protocol Last Admin: 05/19/18 10:04 Dose: Not Given Fat Emulsion Intravenous (Intralipid 20%) 250 mls @ 21 mls/hr IV MWF@1115 [facility] Last Admin: 05/19/18 11:48 Dose: 21 mls/hr Multivitamins/Vitamin C 10 ml/Amino Acids/Electrolytes/Dextrose 2,010 mls @ 83 mls/hr IV .Q24H [facility] Last Admin: 05/19/18 11:48 Dose: 83 mls/hr Mupirocin (Bactroban Ointment) 0 gm NS BID [facility] Stop: 05/23/18 10:01 Last Admin: 05/19/18 10:46 Dose: Not Given Warfarin Sodium (Coumadin) 8 mg PO 1800 [facility] Physical Exam - Constitutional Appears: Non-toxic, No Acute Distress - Head Exam Head Exam: ATRAUMATIC, NORMOCEPHALIC - Eye Exam Eye Exam: EOMI, PERRL. absent: Scleral icterus Pupil Exam: PERRL. absent: Miosis, Mydriatic - ENT Exam ENT Exam: Mucous Membranes Moist, Normal Oropharynx - Neck Exam Neck exam: Positive for: Full Rom, Normal Inspection - Respiratory Exam Respiratory Exam: Clear to Auscultation Bilateral. absent: Rales, Rhonchi, Wheezes - Cardiovascular Exam Cardiovascular Exam: RRR, +S1, +S2. absent: Gallop, Rubs - GI/Abdominal Exam GI & Abdominal Exam: Normal Bowel Sounds, Soft. absent: Distended, Firm, Guarding, Organomegaly, Rebound, Rigid, Tenderness - Extremities Exam Extremities exam: Positive for: normal inspection, pedal edema - Neurological Exam Neurological exam: Alert - Psychiatric Exam Psychiatric exam: Normal Affect, Normal Mood - Skin Skin Exam: Dry, Intact, Normal Color, Warm Results - Vital Signs Recent Vital Signs: Last Vital Signs Temp 97.4 F L 05/19/18 14:00 Pulse 90 05/19/18 14:00 Resp 18 05/19/18 14:00 BP 125/74 05/19/18 14:00 Pulse Ox 96 05/19/18 14:00 - Labs Result Diagrams: 05/19/18 08:30 05/19/18 08:30 Labs: Laboratory Results - last 24 hr 05/19/18 05/19/18 05/19/18 08:30 08:30 08:30 WBC 5.7 RBC 3.18 L Hgb 9.1 L Hct 27.2 L MCV 85.5 MCH 28.6 MCHC 33.5 RDW 16.8 H Plt Count 49 L* MPV 10.1 PT 16.6 H INR 1.43 Sodium Potassium Chloride Carbon Dioxide Anion Gap BUN Creatinine Est GFR ( Amer) Est GFR (Non-Af Amer) Random Glucose Lactic Acid 9.4 H* Calcium Total Bilirubin AST ALT Alkaline Phosphatase Total Protein Albumin Globulin Albumin/Globulin Ratio 05/19/18 08:30 WBC RBC Hgb Hct MCV MCH MCHC RDW Plt Count MPV PT INR Sodium 146 Potassium 3.1 L Chloride 112 H Carbon Dioxide 19 L Anion Gap 19 BUN 57 H Creatinine 1.0 Est GFR ( Amer) > 60 Est GFR (Non-Af Amer) 53 Random Glucose 158 H Lactic Acid Calcium 8.8 Total Bilirubin 1.1 AST 22 ALT 18 Alkaline Phosphatase 84 Total Protein 5.5 L Albumin 2.8 L Globulin 2.6 Albumin/Globulin Ratio 1.1 Assessment & Plan - Assessment and Plan (Free Text) Assessment: 82 year old female with PMH of Atrial fibrillation on Coumadin, CAD, HTN, 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 Active treatment of intractable vomiting and unintentional weight loss Prior EGD 04/2018 showed gastritis. Patient denies prior colonoscopy. Plan: -DDx- esophageal dysmotility, rumination, cognitive behavior, antibiotics -recent completion of 6 week course of antibiotics- zyvox, and daptomycin -05/18/ swallow evaluation- immediate vomit/regurgitation of liquids on swallow -neurology recommendation- no signs of neuromuscular disorder -CT head negative -EGD 04/2018- no esophageal pathology or signs of gastric outlet obstruction -ordered for modified barium swallow, follow up results -ordered PPI 40mg IV daily -start zofran IV 4mg once IV and zofran 4mg IV PRN -NPO, ice chips as tolerated -will follow clinical course <Howard Olguni V - Last Filed: 05/20/18 22:24> Meds - Medications Medications: Current Medications Aspirin (Ecotrin) 81 mg PO DAILY [facility] Last Admin: 05/20/18 09:16 Dose: Not Given Atenolol (Tenormin) 25 mg PO BID [facility] Last Admin: 05/20/18 17:02 Dose: Not Given Digoxin (Digoxin) 0.125 mg PO DAILY [facility] Last Admin: 05/20/18 09:16 Dose: Not Given Enoxaparin Sodium (Lovenox) 60 mg SC Q12H [facility]; Protocol Last Admin: 05/19/18 21:00 Dose: Not Given Fat Emulsion Intravenous (Intralipid 20%) 250 mls @ 21 mls/hr IV MWF@1115 [facility] Last Admin: 05/19/18 11:48 Dose: 21 mls/hr Multivitamins/Vitamin C 10 ml/Amino Acids/Electrolytes/Dextrose 2,010 mls @ 83 mls/hr IV .Q24H [facility] Last Admin: 05/20/18 11:24 Dose: 83 mls/hr Mupirocin (Bactroban Ointment) 0 gm NS BID [facility] Stop: 05/23/18 10:01 Last Admin: 05/20/18 17:01 Dose: 1 applic Pantoprazole Sodium (Protonix Inj) 40 mg IVP DAILY [facility] Last Admin: 05/20/18 11:17 Dose: 40 mg Warfarin Sodium (Coumadin) 8 mg PO 1800 [facility] Last Admin: 05/19/18 17:10 Dose: Not Given Results - Vital Signs Recent Vital Signs: Last Vital Signs Temp 97.6 F 05/20/18 14:00 Pulse 89 05/20/18 14:00 Resp 18 05/20/18 14:00 BP 125/64 05/20/18 14:00 Pulse Ox 97 05/20/18 14:00 - Labs Result Diagrams: 05/20/18 06:30 05/20/18 06:30 Labs: Laboratory Results - last 24 hr 05/20/18 05/20/18 05/20/18 06:30 06:30 06:30 WBC RBC Hgb Hct MCV MCH MCHC RDW Plt Count Manual Plt Count 45 L* MPV Gran % Lymph % (Auto) Crook % (Auto) Eos % (Auto) Baso % (Auto) Gran # Lymph # (Auto) Crook # (Auto) Eos # (Auto) Baso # (Auto) Retic Count 0.12 L PT INR Fibrinogen 139 L Sodium Potassium Chloride Carbon Dioxide Anion Gap BUN Creatinine Est GFR ( Amer) Est GFR (Non-Af Amer) Random Glucose Lactic Acid Calcium Phosphorus Magnesium Ferritin 807.0 Total Bilirubin AST ALT Alkaline Phosphatase Total Protein Albumin Globulin Albumin/Globulin Ratio Vitamin B12 344 Folate 4.0 05/20/18 05/20/18 05/20/18 06:30 06:30 06:30 WBC 4.4 L D RBC 3.00 L Hgb 8.5 L Hct 25.4 L MCV 84.7 MCH 28.3 MCHC 33.5 RDW 16.9 H Plt Count 33 L* Manual Plt Count MPV 10.7 Gran % 58.4 Lymph % (Auto) 32.4 Crook % (Auto) 9.0 H Eos % (Auto) 0.2 L Baso % (Auto) 0.0 Gran # 2.59 Lymph # (Auto) 1.4 Crook # (Auto) 0.4 Eos # (Auto) 0.0 Baso # (Auto) 0.00 Retic Count PT 14.0 H INR 1.21 Fibrinogen Sodium 147 Potassium 3.3 L Chloride 112 H Carbon Dioxide 27 Anion Gap 12 BUN 52 H Creatinine 0.7 Est GFR ( Amer) > 60 Est GFR (Non-Af Amer) > 60 Random Glucose 156 H Lactic Acid Calcium 8.8 Phosphorus 2.2 L Magnesium 2.9 H Ferritin Total Bilirubin 1.1 AST 21 ALT 22 Alkaline Phosphatase 86 Total Protein 5.4 L Albumin 2.7 L Globulin 2.7 Albumin/Globulin Ratio 1.0 L Vitamin B12 Folate 05/20/18 08:55 WBC RBC Hgb Hct MCV MCH MCHC RDW Plt Count Manual Plt Count MPV Gran % Lymph % (Auto) Crook % (Auto) Eos % (Auto) Baso % (Auto) Gran # Lymph # (Auto) Crook # (Auto) Eos # (Auto) Baso # (Auto) Retic Count PT INR Fibrinogen Sodium Potassium Chloride Carbon Dioxide Anion Gap BUN Creatinine Est GFR ( Amer) Est GFR (Non-Af Amer) Random Glucose Lactic Acid 5.1 H* Calcium Phosphorus Magnesium Ferritin Total Bilirubin AST ALT Alkaline Phosphatase Total Protein Albumin Globulin Albumin/Globulin Ratio Vitamin B12 Folate Attending/Attestation - Attestation I have personally seen and examined this patient.: Yes I have fully participated in the care of the patient.: Yes I have reviewed all pertinent clinical information: Yes
[2018-05-19] MEDS ORDERED: Multivitamin (MVI) 10 ML in Amino/Dext 4.25/5 2,000 ML IV SCH (18:00)
--- NOTE | 2018-05-19 19:51 | CON ---
DATE OF CONSULTATION: 05/19/2018 HISTORY OF PRESENT ILLNESS: I was called by Dr. Oliva to do a hyperbaric oxygen consult to see if she qualifies. She is an 82-year-old female, who was not cooperative with me when I did my history and physical, barely spoke to me at that time. She gave me a hard time about the physical exam. She has a right knee replacement history and a wound, which I understand is osteomyelitis. PAST MEDICAL AND PAST SURGICAL HISTORY: She has a history of hypertension, coronary artery disease, atrial fibrillation, osteoarthritis, right knee replacement, pneumonia history, dizziness history, lazy left eye, and cataracts. She had a right knee surgery, wound VAC with knee immobilizer. She had an ORIF of right tibia in 1989. She had multiple falls, right leg and ankle fractures in the past, osteoporosis, unstable gait, hemorrhoids, constipation, genitourinary disorders, bilateral cataract surgeries. FAMILY HISTORY: Unknown family history. SOCIAL HISTORY: Never smoked. No alcohol. No drugs. ALLERGIES: SHE IS ALLERGIC TO BENADRYL, NITROGLYCERIN, PENICILLIN, SILK TAPE, CHOCOLATE. MEDICATIONS: She is currently on Bactroban cream, Coumadin, daptomycin, dextrose, digoxin, aspirin, Lovenox, and Tenormin. REVIEW OF SYSTEMS: Denied any hearing changes that are chronic, not acute. PHYSICAL EXAMINATION: HEENT: She is spitting out phlegm. She would not open her mouth for me to show me her throat. NECK: Supple. HEART: Irregular rate. LUNGS: Decreased breath sounds, but clear. Poor inspiration. ABDOMEN: Soft. EXTREMITIES: Left, no edema. There is a right leg bandaged. NEUROLOGIC: GCS is 15. Cranial nerves II through XII grossly intact. She is alert, not really paying much attention to me, kind of ignoring me, upset that I was there. I tried to explain why I was there, and Dr. Oliva consulted me, I did not get too far. She is being seen by Infectious Disease, GI, and Orthopedics. LABORATORY DATA: She has a 7 white count, 9.1 hemoglobin, 27.8 hematocrit, with 77 platelets. INR is 1.89. Lactates were 12.1; 140 sodium, potassium 3.9, BUN 53, creatinine 1.2, GFR is 43, lactic acid is 10.7. Calcium is 8.6, phosphorous 5, magnesium 2.5, total bili is 0.9, AST is 23, ALT of 22, alk phos 78. C-reactive protein is high at 11.3, total protein is 5.8, is 0.8. IMPRESSION: She has nausea and vomiting, and is seen by Gastroenterology. 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 PLAN: After reviewing her medicines, her labs, EKG, chest x-ray, ER evaluation, she is medically cleared for hyperbaric oxygen, but due to her mentation at this time, I do think she might be a moderate to high risk of guiding. I do not know if she will understand the situation of being in a hyperbaric chamber for that period of time. I tried to explain it to her, maybe Dr. Oliva could explain it to her again, but she is medically cleared for hyperbaric oxygen chamber. Elio Hancock DO MTDDav
--- NOTE | 2018-05-19 19:54 | CP.PCM.CON ---
History of Present Illness - History of Present Illness History of Present Illness: Covering Dr. Pritchard 82 year old female with a history of CAD s/p PCI, HTN, afib on coumadin, osteoarthritis s/p right knee replacement complicated by infected hardware s/p removal requiring [employer] antibiotics (Zyvox), admitted with N/V, with anemia and thrombocytopenia. The patient notes to N/V daily for 2 months. She has lost weight and has extreme fatigue. An EGD revealed gastritis. She is unaware of blood problems in the past. Review of her blood work shows a platelet abelino of 49,000. Past medical history: CAD s/p PCI, HTN, afib on coumadin, osteoarthritis s/p right knee replacement complicated by infected hardware s/p removal Past surgical history: right knee replacement complicated by infected hardware s/p removal Family history: Denies hematologic and oncologic problems Social history: Denies tobacco, alcohol, and illicit drug use. Allergies: Several, see list Review of systems: All remaining review of systems including HEENT, cardiovascular, respiratory, gastrointestinal, genitourinary, musculoskeletal, dermatologic, neurologic, and psychiatric are negative unless mentioned in the HPI. Past Patient History - Infectious Disease Hx of Infectious Diseases: None - Tetanus Immunizations Tetanus Immunization: Unknown - Past Medical History & Family History Past Medical History?: Yes - Past Social History Smoking Status: Never Smoked - CARDIAC Hx Cardiac Disorders: Yes Hx Congestive Heart Failure: Yes Hx Hypercholesterolemia: Yes Hx Hypertension: Yes - PULMONARY Hx Respiratory Disorders: Yes Hx Pneumonia: Yes - NEUROLOGICAL Hx Neurological Disorder: Yes Hx Dizziness: Yes - HEENT Hx HEENT Problems: Yes (LAZY EYE LEFT EYE) Hx Cataracts: Yes - RENAL Hx Chronic Kidney Disease: No - ENDOCRINE/METABOLIC Hx Endocrine Disorders: No - HEMATOLOGICAL/ONCOLOGICAL Hx Blood Transfusions: Yes Hx Blood Transfusion Reaction: No - INTEGUMENTARY Hx Dermatological Problems: Yes Other/Comment: RIGHT KNEE SURGERY -WOUND VAC-KNEE IMMOBILIZER - MUSCULOSKELETAL/RHEUMATOLOGICAL Hx Musculoskeletal Disorders: Yes (ORIF RIGHT TIBIA 1989) Hx Arthritis: Yes Hx Degenerative Joint Disease: Yes Hx Falls: Yes Hx Fractures: Yes (RIGHT LEG ,ANKLE) Hx Osteoporosis: Yes Hx Unsteady Gait: Yes - GASTROINTESTINAL Hx Gastrointestinal Disorders: Yes (HEMORRHOIDS,CONSTIPATION) - GENITOURINARY/GYNECOLOGICAL Hx Genitourinary Disorders: Yes (PMB) - PSYCHIATRIC Hx Psychophysiologic Disorder: No Hx Substance Use: No - SURGICAL HISTORY Hx Mastectomy: No Other/Comment: ORIF RIGHT TIBIA 1990,BILATERAL CATARACT SX, - ANESTHESIA Hx Anesthesia Reactions: No (VOMITING) Hx Malignant Hyperthermia: No Meds Allergies/Adverse Reactions: Allergies Allergy/AdvReac Type Severity Reaction Status Date / Time diphenhydramine Allergy Severe unknown Verified 05/16/18 18:22 [From Benadryl] nitroglycerin Allergy Severe ANAPHYLAXIS Verified 05/16/18 18:22 pcn Allergy Severe RASH Uncoded 05/16/18 18:22 silk tape Allergy blisters Uncoded 05/16/18 18:22 chocolate candy AdvReac Severe HEADACHE Uncoded 05/16/18 18:22 - Medications Medications: Current Medications Aspirin (Ecotrin) 81 mg PO DAILY [facility] Last Admin: 05/19/18 10:46 Dose: Not Given Atenolol (Tenormin) 25 mg PO BID [facility] Last Admin: 05/19/18 17:10 Dose: Not Given Digoxin (Digoxin) 0.125 mg PO DAILY [facility] Last Admin: 05/19/18 10:46 Dose: Not Given Enoxaparin Sodium (Lovenox) 60 mg SC Q12H [facility]; Protocol Last Admin: 05/19/18 10:04 Dose: Not Given Fat Emulsion Intravenous (Intralipid 20%) 250 mls @ 21 mls/hr IV MWF@1115 [facility] Last Admin: 05/19/18 11:48 Dose: 21 mls/hr Multivitamins/Vitamin C 10 ml/Amino Acids/Electrolytes/Dextrose 2,010 mls @ 83 mls/hr IV .Q24H [facility] Last Admin: 05/19/18 11:48 Dose: 83 mls/hr Mupirocin (Bactroban Ointment) 0 gm NS BID [facility] Stop: 05/23/18 10:01 Last Admin: 05/19/18 17:10 Dose: Not Given Ondansetron HCl (Zofran Inj) 4 mg IVP Q4H PRN PRN Reason: Nausea/Vomiting Pantoprazole Sodium (Protonix Inj) 40 mg IVP DAILY [facility] Last Admin: 05/19/18 18:13 Dose: 40 mg Warfarin Sodium (Coumadin) 8 mg PO 1800 [facility] Last Admin: 05/19/18 17:10 Dose: Not Given Physical Exam - Constitutional Appears: Cachectic - ENT Exam ENT Exam: Mucous Membranes Dry - Respiratory Exam Respiratory Exam: Decreased Breath Sounds - Cardiovascular Exam Cardiovascular Exam: +S1, +S2 - GI/Abdominal Exam GI & Abdominal Exam: Normal Bowel Sounds - Extremities Exam Extremities exam: Positive for: pedal edema - Psychiatric Exam Psychiatric exam: Flat Affect - Skin Skin Exam: Warm Results - Vital Signs Recent Vital Signs: Last Vital Signs Temp 97.4 F L 05/19/18 14:00 Pulse 90 05/19/18 14:00 Resp 18 05/19/18 14:00 BP 125/74 05/19/18 14:00 Pulse Ox 96 05/19/18 14:00 - Labs Result Diagrams: 05/19/18 08:30 05/19/18 08:30 Labs: Laboratory Results - last 24 hr 05/19/18 05/19/18 05/19/18 08:30 08:30 08:30 WBC 5.7 RBC 3.18 L Hgb 9.1 L Hct 27.2 L MCV 85.5 MCH 28.6 MCHC 33.5 RDW 16.8 H Plt Count 49 L* MPV 10.1 PT 16.6 H INR 1.43 Sodium Potassium Chloride Carbon Dioxide Anion Gap BUN Creatinine Est GFR ( Amer) Est GFR (Non-Af Amer) Random Glucose Lactic Acid 9.4 H* Calcium Total Bilirubin AST ALT Alkaline Phosphatase Total Protein Albumin Globulin Albumin/Globulin Ratio 05/19/18 08:30 WBC RBC Hgb Hct MCV MCH MCHC RDW Plt Count MPV PT INR Sodium 146 Potassium 3.1 L Chloride 112 H Carbon Dioxide 19 L Anion Gap 19 BUN 57 H Creatinine 1.0 Est GFR ( Amer) > 60 Est GFR (Non-Af Amer) 53 Random Glucose 158 H Lactic Acid Calcium 8.8 Total Bilirubin 1.1 AST 22 ALT 18 Alkaline Phosphatase 84 Total Protein 5.5 L Albumin 2.8 L Globulin 2.6 Albumin/Globulin Ratio 1.1 Assessment & Plan (1) Thrombocytopenia Assessment and Plan: suspect medication induced; Zyvox can cause cytopenias Zyvox has been discontinued most recently will review peripheral smear manual plt count in AM agree with holding antiplatelet and coumadin for now; okay to restart when plt > 50,000 of note, pt will have plt dysfunction from uremia Status: Acute (2) Anemia Assessment and Plan: retic count, b12, folate, ferritin to further characterize Status: Acute (3) Coagulopathy Assessment and Plan: secondary to anticoagulation; on hold likely nutritional component Thank you for this interesting consult. Status: Acute
[2018-05-20 08:30] LABS: EOS % 0.2 % (1.5-5.0); GRAN # 2.59 (1.4-6.5); GRAN % 58.4 % (50.0-68.0); HEMOGLOBIN 8.5 g/dL (12.0-16.0); LYMPH # 1.4 (1.2-3.4); LYMPH % 32.4 % (22.0-35.0); MEAN CELL VOLUME 84.7 fl (80.0-105.0); MEAN CORPUSCULAR HEMOGLOBIN 28.3 pg (25.0-35.0); MEAN CORPUSCULAR HGB CONC 33.5 g/dl (31.0-37.0); MEAN PLATELET VOLUME 10.7 fl (7.0-11.0); MONO # 0.4 (0.1-0.6); RED CELL DISTRIBUTION WIDTH 16.9 % (11.5-14.5); WHITE BLOOD COUNT 4.4 10^3/uL (4.5-11.0)
[2018-05-20 08:32] LABS: PLATELET COUNT 33 10^3/uL (120.0-450.0)
[2018-05-20 08:35] LABS: INR 1.21
[2018-05-20 08:51] LABS: ALBUMIN 2.7 g/dL (3.0-4.8); ALT/SGPT 22 U/L (7-56); AST/SGOT 21 U/L (14-36); BLOOD UREA NITROGEN 52 mg/dL (7-21); CALCIUM 8.8 mg/dL (8.4-10.5); GFR NON-AFRICAN AMERICAN > 60
[2018-05-20] MEDS: Digoxin 125 mcg (0.125 mg) Tab PO SCH (09:16)
[2018-05-20] MEDS: Mupirocin 2% Ointment 15 GM TUBE NS SCH ×2 (09:16→17:01)
--- NOTE | 2018-05-20 09:23 | CP.PCM.PN ---
<Sunni Rangel - Last Filed: 05/20/18 09:20> Subjective - Date & Time of Evaluation Date of Evaluation: 05/20/18 Time of Evaluation: 09:20 - Subjective Subjective: Gastroenterology Fellow/PGY6 Progress Note Patient resting comfortably. Tolerating ice chips. Continues to regurgitate and cough during speech therapy with liquid trial. A 12-point review of systems negative except for as above. Objective - Vital Signs/Intake and Output Vital Signs (last 24 hours): Temp Pulse Resp BP Pulse Ox 97.3 F L 94 H 16 100/57 L 98 05/20/18 06:00 05/20/18 06:00 05/20/18 06:00 05/20/18 06:00 05/20/18 06:00 - Medications Medications: Current Medications Aspirin (Ecotrin) 81 mg PO DAILY [facility] Last Admin: 05/20/18 09:16 Dose: Not Given Atenolol (Tenormin) 25 mg PO BID [facility] Last Admin: 05/20/18 09:16 Dose: Not Given Digoxin (Digoxin) 0.125 mg PO DAILY [facility] Last Admin: 05/20/18 09:16 Dose: Not Given Enoxaparin Sodium (Lovenox) 60 mg SC Q12H [facility]; Protocol Last Admin: 05/19/18 21:00 Dose: Not Given Fat Emulsion Intravenous (Intralipid 20%) 250 mls @ 21 mls/hr IV MWF@1115 [facility] Last Admin: 05/19/18 11:48 Dose: 21 mls/hr Multivitamins/Vitamin C 10 ml/Amino Acids/Electrolytes/Dextrose 2,010 mls @ 83 mls/hr IV .Q24H [facility] Last Admin: 05/19/18 11:48 Dose: 83 mls/hr Mupirocin (Bactroban Ointment) 0 gm NS BID [facility] Stop: 05/23/18 10:01 Last Admin: 05/20/18 09:16 Dose: Not Given Pantoprazole Sodium (Protonix Inj) 40 mg IVP DAILY [facility] Last Admin: 05/19/18 18:13 Dose: 40 mg Warfarin Sodium (Coumadin) 8 mg PO 1800 [facility] Last Admin: 05/19/18 17:10 Dose: Not Given - Labs Labs: 05/20/18 06:30 05/20/18 06:30 PT 14.0 SECONDS (9.4-12.5) H 05/20/18 06:30 INR 1.21 05/20/18 06:30 APTT 35.2 Seconds (25.1-36.5) 05/16/18 19:12 - Constitutional Appears: Non-toxic, No Acute Distress - Head Exam Head Exam: ATRAUMATIC, NORMOCEPHALIC - Eye Exam Eye Exam: EOMI, PERRL. absent: Scleral icterus Pupil Exam: PERRL. absent: Miosis, Mydriatic - ENT Exam ENT Exam: Mucous Membranes Moist, Normal Oropharynx - Neck Exam Neck Exam: Full ROM, Normal Inspection - Respiratory Exam Respiratory Exam: Clear to Ausculation Bilateral. absent: Rales, Rhonchi, Wheezes - Cardiovascular Exam Cardiovascular Exam: RRR, +S1, +S2. absent: Gallop, Rubs - GI/Abdominal Exam GI & Abdominal Exam: Soft, Normal Bowel Sounds. absent: Distended, Firm, Guarding, Rigid, Tenderness, Organomegaly, Rebound - Extremities Exam Extremities Exam: Normal Inspection. 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 Active treatment of intractable vomiting, failure to thrive, and unintentional weight loss. Prior EGD 04/2018 showed gastritis. P atient denies prior colonoscopy. Plan: -05/19 swallow evaluation- recommend NPO -pending modified Barium swallow -ordered CT chest to rule out mass lesion -recommend ENT consult -continue PPI 40mg IV daily -NPO, ice chips as tolerated -EGD 04/2018- no esophageal pathology or signs of gastric outlet obstruction -recent completion of 6 week course of antibiotics- zyvox, and daptomycin -neurology recommendation- no signs of neuromuscular disorder -CT head negative -will follow clinical course <Howard Olguin V - Last Filed: 05/20/18 22:45> Objective - Vital Signs/Intake and Output Vital Signs (last 24 hours): Temp Pulse Resp BP Pulse Ox 97 F L 88 18 132/75 98 05/20/18 22:23 05/20/18 22:23 05/20/18 22:23 05/20/18 22:23 05/20/18 22:23 Intake and Output: 05/20/18 05/21/18 18:59 06:59 Intake Total 0 Balance 0 - Medications Medications: Current Medications Aspirin (Ecotrin) 81 mg PO DAILY [facility] Last Admin: 05/20/18 09:16 Dose: Not Given Atenolol (Tenormin) 25 mg PO BID [facility] Last Admin: 05/20/18 17:02 Dose: Not Given Digoxin (Digoxin) 0.125 mg PO DAILY [facility] Last Admin: 05/20/18 09:16 Dose: Not Given Enoxaparin Sodium (Lovenox) 60 mg SC Q12H [facility]; Protocol Last Admin: 05/19/18 21:00 Dose: Not Given Fat Emulsion Intravenous (Intralipid 20%) 250 mls @ 21 mls/hr IV MWF@1115 [facility] Last Admin: 05/19/18 11:48 Dose: 21 mls/hr Multivitamins/Vitamin C 10 ml/Amino Acids/Electrolytes/Dextrose 2,010 mls @ 83 mls/hr IV .Q24H [facility] Last Admin: 05/20/18 11:24 Dose: 83 mls/hr Mupirocin (Bactroban Ointment) 0 gm NS BID [facility] Stop: 05/23/18 10:01 Last Admin: 05/20/18 17:01 Dose: 1 applic Pantoprazole Sodium (Protonix Inj) 40 mg IVP DAILY [facility] Last Admin: 05/20/18 11:17 Dose: 40 mg Warfarin Sodium (Coumadin) 8 mg PO 1800 [facility] Last Admin: 05/19/18 17:10 Dose: Not Given - Labs Labs: 05/20/18 06:30 05/20/18 06:30 PT 14.0 SECONDS (9.4-12.5) H 05/20/18 06:30 INR 1.21 05/20/18 06:30 APTT 35.2 Seconds (25.1-36.5) 05/16/18 19:12 Attending/Attestation - Attestation I have personally seen and examined this patient.: Yes I have fully participated in the care of the patient.: Yes I have reviewed all pertinent clinical information, including history, physical exam and plan: Yes Notes (Text): This is an addendum to GI progress report dictated by the GI Fellow.The patient was seen and examined earlier. Medical records, lab studies, imagings were reviewed. Last 24 hours events reviewed. Agreed with the above treatment plan as outlined in GI Fellow 's notes with the addition of the following nausea in this 82 year old patient is probably related to drug-induced dysphagia is probably multifactorial etiology in this patient, most likely component is motility dysfunction CT of the chest was reviewed ENT consult reviewed Discussed with the nursing staff Modified barium swallow is pending awit for further assessment with speech therapist Patient has thrombocytopenia probably drug induced, hematology note reviewed. Hold off PPI Will discuss with the patient's daughter 05/20/18 22:40
--- NOTE | 2018-05-20 10:40 | CT ---
Date of service: 05/20/2018 PROCEDURE: CT Chest without contrast HISTORY: dysphagia, vomiting, rule out mass COMPARISON: 08/02/2016 TECHNIQUE: Contiguous axial images were obtained through the chest without intravenous contrast enhancement. Sagittal and coronal reconstructions were performed. Radiation dose: Total exam DLP = 286.89 mGy-cm. This CT exam was performed using one or more of the following dose reduction techniques: Automated exposure control, adjustment of the mA and/or kV according to patient size, and/or use of iterative reconstruction technique. FINDINGS: LUNGS: There is a 4 mm nodule at the left lung base. There is some linear scarring at the right lung base. MEDIASTINUM: Unremarkable thoracic aorta. No aneurysm. There is moderate cardiomegaly with heavy coronary artery calcification and aortic calcification. Main pulmonary artery unremarkable. No vascular congestion. No lymphadenopathy. PLEURA: No pleural fluid. No pneumothorax. BONES: No fracture. No destructive lesion. UPPER ABDOMEN: Grossly unremarkable. OTHER FINDINGS: There is diffuse enlargement of the thyroid right lobe greater than left measuring 57 and 38 mm AP IMPRESSION: No acute findings. Enlarged thyroid consistent with goiter.
--- NOTE | 2018-05-20 11:01 | CP.PCM.PN ---
Subjective - Date & Time of Evaluation Date of Evaluation: 05/20/18 Time of Evaluation: 08:00 - Subjective Subjective: Patient still feels weak, still has right knee pain but did not increase in severity, still not swallowing and failed swallowing evaluation test, no fevers overnight, patient has been on parenteral nutrition on this admission. Objective - Vital Signs/Intake and Output Vital Signs (last 24 hours): Temp Pulse Resp BP Pulse Ox 97.3 F L 94 H 16 100/57 L 98 05/20/18 06:00 05/20/18 06:00 05/20/18 06:00 05/20/18 06:00 05/20/18 06:00 - Medications Medications: Current Medications Aspirin (Ecotrin) 81 mg PO DAILY [facility] Last Admin: 05/20/18 09:16 Dose: Not Given Atenolol (Tenormin) 25 mg PO BID [facility] Last Admin: 05/20/18 09:16 Dose: Not Given Digoxin (Digoxin) 0.125 mg PO DAILY [facility] Last Admin: 05/20/18 09:16 Dose: Not Given Enoxaparin Sodium (Lovenox) 60 mg SC Q12H [facility]; Protocol Last Admin: 05/19/18 21:00 Dose: Not Given Fat Emulsion Intravenous (Intralipid 20%) 250 mls @ 21 mls/hr IV MWF@1115 [facility] Last Admin: 05/19/18 11:48 Dose: 21 mls/hr Multivitamins/Vitamin C 10 ml/Amino Acids/Electrolytes/Dextrose 2,010 mls @ 83 mls/hr IV .Q24H [facility] Last Admin: 05/19/18 11:48 Dose: 83 mls/hr Potassium Chloride (Potassium Chloride 10 Meq/100 Ml) 10 meq in 100 mls @ 75 mls/hr IVPB Q2H [facility] Stop: 05/20/18 13:04 Mupirocin (Bactroban Ointment) 0 gm NS BID [facility] Stop: 05/23/18 10:01 Last Admin: 05/20/18 09:16 Dose: Not Given Pantoprazole Sodium (Protonix Inj) 40 mg IVP DAILY [facility] Last Admin: 05/19/18 18:13 Dose: 40 mg Warfarin Sodium (Coumadin) 8 mg PO 1800 [facility] Last Admin: 05/19/18 17:10 Dose: Not Given - Labs Labs: 05/20/18 06:30 05/20/18 06:30 PT 14.0 SECONDS (9.4-12.5) H 05/20/18 06:30 INR 1.21 05/20/18 06:30 APTT 35.2 Seconds (25.1-36.5) 05/16/18 19:12 - Constitutional Appears: Chronically Ill - Head Exam Head Exam: NORMAL INSPECTION - Neck Exam Neck Exam: absent: Meningismus - Respiratory Exam Respiratory Exam: Decreased Breath Sounds - Cardiovascular Exam Cardiovascular Exam: +S1, +S2 - GI/Abdominal Exam GI & Abdominal Exam: Soft. 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 Hernandez, she already has had 6 weeks of antibiotics (since 04/08/2018) and there is concern about the thrombocytopenia, nausea and vomiting - the thrombocytopenia is probably multifactorial (including meds and chronic illness and since we are unable to rule out meds as associated with the thrombocytopenia, will keep off Daptomycin and observe) - discussed this also with Dr. Watson and we will monitor the CRP - the CRP is still elevated but because the patient is ill, the CRP is not an accurate assessment of the inflammation in the knee - will get another CRP tomorrow and observe discussed with Dr. Hernandez - patient to have barium swallow test today lactic acid levels are starting to trend downward, patient continued on IV fluids and parenteral nutrition as ordered by Dr. Hernandez - patient needs nutrition so that her right knee is to heal properly talked to Dr. Oliva - she initially considered hyperbaric therapy but after seeing patient, will be deferring it - she will continue to do local wound care on the knee will continue to monitor clinically overall prognosis is poor
--- NOTE | 2018-05-20 11:46 | CP.PCM.PN ---
<Giuseppe Freed - Last Filed: 05/20/18 16:08> Subjective - Date & Time of Evaluation Date of Evaluation: 05/20/18 Time of Evaluation: 11:43 - Subjective Subjective: Podiatry progress note for Dr. Philip 82 yo female seen and evaluated at bedside. Seen in distress, coughing constantly and eyes closed for the duration of the visit. Patient states that she is in some pain at her right knee from the surgical sit. Complains of N/V, no fever or chills, SOB present, no CP. Has no other pedal complaints. Objective - Vital Signs/Intake and Output Vital Signs (last 24 hours): Temp Pulse Resp BP Pulse Ox 97.3 F L 94 H 16 100/57 L 98 05/20/18 06:00 05/20/18 06:00 05/20/18 06:00 05/20/18 06:00 05/20/18 06:00 - Medications Medications: Current Medications Aspirin (Ecotrin) 81 mg PO DAILY [facility] Last Admin: 05/20/18 09:16 Dose: Not Given Atenolol (Tenormin) 25 mg PO BID [facility] Last Admin: 05/20/18 09:16 Dose: Not Given Digoxin (Digoxin) 0.125 mg PO DAILY [facility] Last Admin: 05/20/18 09:16 Dose: Not Given Enoxaparin Sodium (Lovenox) 60 mg SC Q12H [facility]; Protocol Last Admin: 05/19/18 21:00 Dose: Not Given Fat Emulsion Intravenous (Intralipid 20%) 250 mls @ 21 mls/hr IV MWF@1115 [facility] Last Admin: 05/19/18 11:48 Dose: 21 mls/hr Multivitamins/Vitamin C 10 ml/Amino Acids/Electrolytes/Dextrose 2,010 mls @ 83 mls/hr IV .Q24H [facility] Last Admin: 05/20/18 11:24 Dose: 83 mls/hr Potassium Chloride (Potassium Chloride 10 Meq/100 Ml) 10 meq in 100 mls @ 75 mls/hr IVPB Q2H [facility] Stop: 05/20/18 13:04 Last Admin: 05/20/18 11:18 Dose: 75 mls/hr Mupirocin (Bactroban Ointment) 0 gm NS BID [facility] Stop: 05/23/18 10:01 Last Admin: 05/20/18 09:16 Dose: Not Given Pantoprazole Sodium (Protonix Inj) 40 mg IVP DAILY [facility] Last Admin: 05/20/18 11:17 Dose: 40 mg Warfarin Sodium (Coumadin) 8 mg PO 1800 [facility] Last Admin: 05/19/18 17:10 Dose: Not Given - Labs Labs: 05/20/18 06:30 05/20/18 06:30 PT 14.0 SECONDS (9.4-12.5) H 05/20/18 06:30 INR 1.21 05/20/18 06:30 APTT 35.2 Seconds (25.1-36.5) 05/16/18 19:12 - Constitutional Appears: Well, Non-toxic, No Acute Distress - Head Exam Head Exam: ATRAUMATIC, NORMOCEPHALIC - Extremities Exam Additional comments: R LE focused exam: Vasc: DP/PT faintly palpable. Cap refill< 3 sec to all digits. Temp gradient warm to cool. No edema. Multiple ecchymotic patches extends from the periwound area at the knee joint all the way down to the R ankle. Periwound erythema noted. Neuro: Gross and protective sensations are intact. Derm: An open wound measures [id number]. Minimal purulent drainage noted. No malodor. Base is mixed necrotic,granular and fibrous 40:40:20. No probe to bone, no tracking or undermining. Periwound erythema and ecchymosis noted. Positive clinical signs of infection. MSK: Sever pain on palpating the periwound area. Muscle power around the knee joint couldn't be assessed due to pain and guarding. Passive and active ROM could be performed with guarding at the level of the R foot and ankle. - Neurological Exam Neurological Exam: Alert, Awake, Oriented x3 - Psychiatric Exam Psychiatric exam: Normal Affect, Normal Mood Assessment and Plan - Assessment and Plan (Free Text) Assessment: 82 yo female with infected right knee wound and osteomyelitis Plan: Patient seen and evaluated at the bedside Charts, labs and vitals reviewed; Afebrile, No leukocytosis Wound culture collected, ordered and sent to the lab - f/u Blood culture (05/16) Preliminary; No growth after 24 hours. Wound cleaned with saline then dressed with xeroform, bactroban, ABD, DSD Right knee x-ray - prosthesis removed, cement spacer in place ID consulted; recommendations appreciated - will d/c abx as of now as already finished 6 week course Focus on replenishing nutrition levels for patient Continue medical management per medicine and ID team Podiatry will continue to follow patient while in house. <Thai Philip - Last Filed: 05/21/18 09:40> Objective - Vital Signs/Intake and Output Vital Signs (last 24 hours): Temp Pulse Resp BP Pulse Ox 97.9 F 90 18 132/78 98 05/21/18 06:00 05/21/18 06:00 05/21/18 06:00 05/21/18 06:00 05/21/18 06:00 Intake and Output: 05/21/18 05/21/18 06:59 18:59 Intake Total 1991 Balance 1991 - Medications Medications: Current Medications Aspirin (Ecotrin) 81 mg PO DAILY [facility] Last Admin: 05/20/18 09:16 Dose: Not Given Atenolol (Tenormin) 25 mg PO BID [facility] Last Admin: 05/20/18 17:02 Dose: Not Given Digoxin (Digoxin) 0.125 mg PO DAILY [facility] Last Admin: 05/20/18 09:16 Dose: Not Given Enoxaparin Sodium (Lovenox) 60 mg SC Q12H [facility]; Protocol Last Admin: 05/19/18 21:00 Dose: Not Given Multivitamins/Vitamin C 10 ml/Amino Acids/Electrolytes/Dextrose 2,010 mls @ 83 mls/hr IV .Q24H [facility] Stop: 05/24/18 11:16 Fat Emulsion Intravenous (Intralipid 20%) 250 mls @ 21 mls/hr IV MWF@1115 [facility] Potassium Chloride (Potassium Chloride 10 Meq/100 Ml) 10 meq in 100 mls @ 50 mls/hr IVPB ONCE ONE Stop: 05/21/18 10:23 Mupirocin (Bactroban Ointment) 0 gm NS BID [facility] Stop: 05/23/18 10:01 Last Admin: 05/20/18 17:01 Dose: 1 applic Pantoprazole Sodium (Protonix Inj) 40 mg IVP DAILY [facility] Last Admin: 05/20/18 11:17 Dose: 40 mg Warfarin Sodium (Coumadin) 8 mg PO 1800 [facility] Last Admin: 05/19/18 17:10 Dose: Not Given - Labs Labs: 05/21/18 06:45 05/21/18 06:45 PT 11.2 SECONDS (9.4-12.5) 05/21/18 06:45 INR 0.97 05/21/18 06:45 APTT 35.2 Seconds (25.1-36.5) 05/16/18 19:12 Attending/Attestation - Attestation I have personally seen and examined this patient.: Yes I have fully participated in the care of the patient.: Yes I have reviewed all pertinent clinical information, including history, physical exam and plan: Yes
--- NOTE | 2018-05-20 15:00 | CP.PCM.PN ---
Subjective - Date & Time of Evaluation Date of Evaluation: 05/20/18 Time of Evaluation: 14:56 - Subjective Subjective: Pt currently get midline access. Pt awake,alert. Afebrile, VSS R knee with dressing Pt currently off all antibiotics. Pt now on ppn. Podiatry wound service on board. Will follow labs. PT for OOB. Discussed at length with jaylon Wood. Currently not a candidate for reimplantation. Explained to daughter and patient that skin must heal and CRP,ESR must normalize prior to knee surgery. Objective - Vital Signs/Intake and Output Vital Signs (last 24 hours): Temp Pulse Resp BP Pulse Ox 97.3 F L 94 H 16 100/57 L 98 05/20/18 06:00 05/20/18 06:00 05/20/18 06:00 05/20/18 06:00 05/20/18 06:00 - Medications Medications: Current Medications Aspirin (Ecotrin) 81 mg PO DAILY [facility] Last Admin: 05/20/18 09:16 Dose: Not Given Atenolol (Tenormin) 25 mg PO BID [facility] Last Admin: 05/20/18 09:16 Dose: Not Given Digoxin (Digoxin) 0.125 mg PO DAILY [facility] Last Admin: 05/20/18 09:16 Dose: Not Given Enoxaparin Sodium (Lovenox) 60 mg SC Q12H [facility]; Protocol Last Admin: 05/19/18 21:00 Dose: Not Given Fat Emulsion Intravenous (Intralipid 20%) 250 mls @ 21 mls/hr IV MWF@1115 [facility] Last Admin: 05/19/18 11:48 Dose: 21 mls/hr Multivitamins/Vitamin C 10 ml/Amino Acids/Electrolytes/Dextrose 2,010 mls @ 83 mls/hr IV .Q24H [facility] Last Admin: 05/20/18 11:24 Dose: 83 mls/hr Mupirocin (Bactroban Ointment) 0 gm NS BID [facility] Stop: 05/23/18 10:01 Last Admin: 05/20/18 09:16 Dose: Not Given Pantoprazole Sodium (Protonix Inj) 40 mg IVP DAILY [facility] Last Admin: 05/20/18 11:17 Dose: 40 mg Warfarin Sodium (Coumadin) 8 mg PO 1800 [facility] Last Admin: 05/19/18 17:10 Dose: Not Given - Labs Labs: 05/20/18 06:30 05/20/18 06:30 PT 14.0 SECONDS (9.4-12.5) H 05/20/18 06:30 INR 1.21 05/20/18 06:30 APTT 35.2 Seconds (25.1-36.5) 05/16/18 19:12
--- NOTE | 2018-05-20 15:29 | CP.PCM.PCO ---
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
--- NOTE | 2018-05-20 16:20 | CP.PCM.PN ---
<Gloria Whiteside - Last Filed: 05/20/18 17:56> Subjective - Date & Time of Evaluation Date of Evaluation: 05/20/18 Time of Evaluation: 07:00 - Subjective Subjective: Gloria Whiteside DO, PGY-2: Progress Note for Dr. Waller Patient was seen and examined this morning. At the time of my examination nurse was helping the patient rinse her mouth with water. Patient reports that her nausea has dissipated. Objective - Vital Signs/Intake and Output Vital Signs (last 24 hours): Temp Pulse Resp BP Pulse Ox 97.6 F 89 18 125/64 97 05/20/18 14:00 05/20/18 14:00 05/20/18 14:00 05/20/18 14:00 05/20/18 14:00 - Medications Medications: Current Medications Aspirin (Ecotrin) 81 mg PO DAILY [facility] Last Admin: 05/20/18 09:16 Dose: Not Given Atenolol (Tenormin) 25 mg PO BID [facility] Last Admin: 05/20/18 09:16 Dose: Not Given Digoxin (Digoxin) 0.125 mg PO DAILY [facility] Last Admin: 05/20/18 09:16 Dose: Not Given Enoxaparin Sodium (Lovenox) 60 mg SC Q12H [facility]; Protocol Last Admin: 05/19/18 21:00 Dose: Not Given Fat Emulsion Intravenous (Intralipid 20%) 250 mls @ 21 mls/hr IV MWF@1115 [facility] Last Admin: 05/19/18 11:48 Dose: 21 mls/hr Multivitamins/Vitamin C 10 ml/Amino Acids/Electrolytes/Dextrose 2,010 mls @ 83 mls/hr IV .Q24H [facility] Last Admin: 05/20/18 11:24 Dose: 83 mls/hr Mupirocin (Bactroban Ointment) 0 gm NS BID [facility] Stop: 05/23/18 10:01 Last Admin: 05/20/18 09:16 Dose: Not Given Pantoprazole Sodium (Protonix Inj) 40 mg IVP DAILY [facility] Last Admin: 05/20/18 11:17 Dose: 40 mg Warfarin Sodium (Coumadin) 8 mg PO 1800 [facility] Last Admin: 05/19/18 17:10 Dose: Not Given - Labs Labs: 05/20/18 06:30 05/20/18 06:30 PT 14.0 SECONDS (9.4-12.5) H 05/20/18 06:30 INR 1.21 05/20/18 06:30 APTT 35.2 Seconds (25.1-36.5) 05/16/18 19:12 - Constitutional Appears: Non-toxic, Cachectic - Head Exam Head Exam: ATRAUMATIC, NORMOCEPHALIC - Eye Exam Eye Exam: EOMI, Normal appearance - ENT Exam ENT Exam: Mucous Membranes Moist - Neck Exam Neck Exam: Normal Inspection - Respiratory Exam Respiratory Exam: Clear to Ausculation Bilateral. absent: Accessory Muscle Use - Cardiovascular Exam Cardiovascular Exam: RRR, +S1, +S2 - GI/Abdominal Exam GI & Abdominal Exam: Soft, Normal Bowel Sounds - Extremities Exam Extremities Exam: Normal Inspection. absent: Calf Tenderness - Neurological Exam Neurological Exam: Alert, Awake, Oriented x3 - Psychiatric Exam Psychiatric exam: Normal Affect, Normal Mood - Skin Skin Exam: Dry, Intact, Normal Color, Warm Assessment and Plan - Assessment and Plan (Free Text) Assessment: 82-year-old female with a PMH of A. 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 ID has discontinued antibiotics. I agree with this. GI is also following and the patient is now on TPN/PPN for nutrional support. Dr. Olguin is the second opinion we have consulted. The patient's aspirin, lovenox, and warfarin are currently being held secondary to her thrombocytopenia. We can restart these medications once the platelets go above 50,000. Hematology's note appreciated. We will continue with rate control for the patient's atrial fibrillation with Atenolol and Digoxin. TPN/PPN for nutrional support. . Dr. Lund for the patient's mood disorder. Potassium 20 mEq was given IV for the patient's hypoklalemia. She underwent CT of the chest that showed goiter. Patient is also DNR/DNI. Prognosis is poor. filter worker note indicates patient can be transferred to [place] once medically stable. Family was spoken to by Dr. Waller. Case was reviewed and discussed with attending physician, Dr. Waller <Ajay Waller S - Last Filed: 05/20/18 18:12> Objective - Vital Signs/Intake and Output Vital Signs (last 24 hours): Temp Pulse Resp BP Pulse Ox 97.6 F 89 18 125/64 97 05/20/18 14:00 05/20/18 14:00 05/20/18 14:00 05/20/18 14:00 05/20/18 14:00 - Medications Medications: Current Medications Aspirin (Ecotrin) 81 mg PO DAILY [facility] Last Admin: 05/20/18 09:16 Dose: Not Given Atenolol (Tenormin) 25 mg PO BID [facility] Last Admin: 05/20/18 17:02 Dose: Not Given Digoxin (Digoxin) 0.125 mg PO DAILY [facility] Last Admin: 05/20/18 09:16 Dose: Not Given Enoxaparin Sodium (Lovenox) 60 mg SC Q12H [facility]; Protocol Last Admin: 05/19/18 21:00 Dose: Not Given Fat Emulsion Intravenous (Intralipid 20%) 250 mls @ 21 mls/hr IV MWF@1115 [facility] Last Admin: 05/19/18 11:48 Dose: 21 mls/hr Multivitamins/Vitamin C 10 ml/Amino Acids/Electrolytes/Dextrose 2,010 mls @ 83 mls/hr IV .Q24H [facility] Last Admin: 05/20/18 11:24 Dose: 83 mls/hr Mupirocin (Bactroban Ointment) 0 gm NS BID [facility] Stop: 05/23/18 10:01 Last Admin: 05/20/18 17:01 Dose: 1 applic Pantoprazole Sodium (Protonix Inj) 40 mg IVP DAILY [facility] Last Admin: 05/20/18 11:17 Dose: 40 mg Warfarin Sodium (Coumadin) 8 mg PO 1800 [facility] Last Admin: 05/19/18 17:10 Dose: Not Given - Labs Labs: 05/20/18 06:30 05/20/18 06:30 PT 14.0 SECONDS (9.4-12.5) H 05/20/18 06:30 INR 1.21 05/20/18 06:30 APTT 35.2 Seconds (25.1-36.5) 05/16/18 19:12 Assessment and Plan - Assessment and Plan (Free Text) Assessment: Pt seen and examined. I have reviewed the note of the medical sales associate and agree with it. I have discussed the assessment and plan with the resident. I have rev iewed the patient's labs and medications. Pt with Lactic acidosis that is improving. This was from Zyvox. She is being seen by GI for N/V. She is on PPN and will be continued. Low K will be replaced. Will need midline for IV access. Thrombocytopenia is new and Heme on consult. Spoke to Dr Narvaez from Ortho. Ct of the chest was done to evaluate for malnutirion and infection. She is DNR. Prognosis is guarded.
--- NOTE | 2018-05-20 19:55 | CON ---
DATE: 05/20/2018 LOCATION: An 82-year-old female seen in room 564 in [facility]. CONSULTATION REQUESTED FOR: Dysphagia. 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 The patient was admitted at this time through the ER with nausea, vomiting, anemia and thrombocytopenia. The patient noted greater than 30-pound weight loss with significant nausea and vomiting daily for over 2 months and noted to extreme fatigue, she is unaware of her blood problem. PAST MEDICAL HISTORY: Coronary artery disease status post PCI, hypertension, and AFib, PAST SURGICAL HISTORY: Right knee replacement, complicated with infected hardware. FAMILY HISTORY: Denies. SOCIAL HISTORY: Denies tobacco and alcohol. ALLERGIES: THE PATIENT IS NOTED TO HAVE SIGNIFICANT ALLERGY HISTORY. MEDICATIONS: Aspirin, atenolol, digoxin, significant antibiotic history. REVIEW OF SYSTEMS: Including HEENT, cardiovascular, respiratory and gastrointestinal are negative. PHYSICAL EXAMINATION VITAL SIGNS: Most recent temperature was noted to be normal, pulse 90, respiratory rate 18, 125/74 blood pressure, and pulse ox of 96. ENT: Noted poor gag reflux with poor oral hygiene. Dry mucosal linings and large palpable thyroid, which noted on CAT scan to be goitrous. LABORATORY DATA: A recent EGD done by GI noted to show gastritis and esophageal reflux. There is no barium swallow done, and it has been ordered and is scheduled for the next 24 hours. She is definitely anemic at 9.1 and 27 with noted white count at this point noted to be low. The patient appears and has been in septic and is resolving, but is significantly fatigued and has had a significantly poor oral intake. The patient is unable to be scoped at this point with the most recent EGD. IMPRESSION: Lethargic and poor oral hygiene, dysphagia, septic, status post antibiotics for right hardware failure. RECOMMENDATIONS: Barium swallow modified with aspiration precautions, speech therapy for possible oral intake estimation. Recommend possibly a gastric feeding tube during this interim, as the patient's oral intake is significantly inadequate to maintain weight and oral intake for daily calorie intakes. Kian Perry DO
--- NOTE | 2018-05-20 20:32 | CP.PCM.PN ---
Subjective - Date & Time of Evaluation Date of Evaluation: 05/20/18 Time of Evaluation: 20:00 - Subjective Subjective: Asking for ice chips, failed swallow evaluation Objective - Vital Signs/Intake and Output Vital Signs (last 24 hours): Temp Pulse Resp BP Pulse Ox 97.6 F 89 18 125/64 97 05/20/18 14:00 05/20/18 14:00 05/20/18 14:00 05/20/18 14:00 05/20/18 14:00 Intake and Output: 05/20/18 05/21/18 18:59 06:59 Intake Total 0 Balance 0 - Medications Medications: Current Medications Aspirin (Ecotrin) 81 mg PO DAILY [facility] Last Admin: 05/20/18 09:16 Dose: Not Given Atenolol (Tenormin) 25 mg PO BID [facility] Last Admin: 05/20/18 17:02 Dose: Not Given Digoxin (Digoxin) 0.125 mg PO DAILY [facility] Last Admin: 05/20/18 09:16 Dose: Not Given Enoxaparin Sodium (Lovenox) 60 mg SC Q12H [facility]; Protocol Last Admin: 05/19/18 21:00 Dose: Not Given Fat Emulsion Intravenous (Intralipid 20%) 250 mls @ 21 mls/hr IV MWF@1115 [facility] Last Admin: 05/19/18 11:48 Dose: 21 mls/hr Multivitamins/Vitamin C 10 ml/Amino Acids/Electrolytes/Dextrose 2,010 mls @ 83 mls/hr IV .Q24H [facility] Last Admin: 05/20/18 11:24 Dose: 83 mls/hr Mupirocin (Bactroban Ointment) 0 gm NS BID [facility] Stop: 05/23/18 10:01 Last Admin: 05/20/18 17:01 Dose: 1 applic Pantoprazole Sodium (Protonix Inj) 40 mg IVP DAILY [facility] Last Admin: 05/20/18 11:17 Dose: 40 mg Warfarin Sodium (Coumadin) 8 mg PO 1800 [facility] Last Admin: 05/19/18 17:10 Dose: Not Given - Labs Labs: 05/20/18 06:30 05/20/18 06:30 PT 14.0 SECONDS (9.4-12.5) H 05/20/18 06:30 INR 1.21 05/20/18 06:30 APTT 35.2 Seconds (25.1-36.5) 05/16/18 19:12 - Head Exam Head Exam: ATRAUMATIC - Eye Exam Eye Exam: Normal appearance - ENT Exam ENT Exam: Mucous Membranes Dry - Respiratory Exam Respiratory Exam: NORMAL BREATHING PATTERN - Cardiovascular Exam Cardiovascular Exam: +S1, +S2 - GI/Abdominal Exam GI & Abdominal Exam: Normal Bowel Sounds Assessment and Plan (1) Thrombocytopenia Assessment & Plan: suspect medication induced; Zyvox can cause cytopenias Zyvox has been discontinued most recently agree with holding antiplatelet and coumadin for now; okay to restart when plt > 50,000 of note, pt will have plt dysfunction from uremia low fibrinogen noted; no active infection to suggest DIC - ?declining synthetic liver function Status: Acute (2) Anemia Assessment & Plan: hypoproliferative erythroid response anemia of chronic disease no iron/b12/folate deficiency will give a dose of erythropoietin in an attempt to decrease transfusion dependence Status: Acute (3) Coagulopathy Assessment & Plan: nutritional low fibrinogen ? declining synthetic function of liver Status: Acute
[2018-05-20] MEDS ORDERED: Darbepoetin Alfa 60 mcg/ml Inj SC ONE (20:35)
[2018-05-21 07:11] LABS: EOS % 0.8 % (1.5-5.0); GRAN # 2.43 (1.4-6.5); GRAN % 51.2 % (50.0-68.0); HEMOGLOBIN 7.8 g/dL (12.0-16.0); LYMPH # 1.6 (1.2-3.4); LYMPH % 34.1 % (22.0-35.0); MEAN CELL VOLUME 85.8 fl (80.0-105.0); MEAN CORPUSCULAR HEMOGLOBIN 28.5 pg (25.0-35.0); MEAN CORPUSCULAR HGB CONC 33.2 g/dl (31.0-37.0); MONO # 0.7 (0.1-0.6); MONO % 13.9 % (1.0-6.0); RBC 2.74 10^6/uL (3.5-6.1); RED CELL DISTRIBUTION WIDTH 17.2 % (11.5-14.5); WHITE BLOOD COUNT 4.8 10^3/uL (4.5-11.0)
[2018-05-21 07:16] LABS: INR 0.97; PROTHROMBIN TIME 11.2 SECONDS (9.4-12.5)
[2018-05-21 07:30] LABS: PLATELET COUNT 20 10^3/uL (120.0-450.0)
[2018-05-21 07:32] LABS: ALBUMIN 2.6 g/dL (3.0-4.8); ALT/SGPT 22 U/L (7-56); AST/SGOT 18 U/L (14-36); BLOOD UREA NITROGEN 38 mg/dL (7-21); CALCIUM 8.5 mg/dL (8.4-10.5); GFR NON-AFRICAN AMERICAN > 60
--- NOTE | 2018-05-21 09:38 | CP.PCM.PN ---
Subjective - Date & Time of Evaluation Date of Evaluation: 05/21/18 Time of Evaluation: 09:35 - Subjective Subjective: Patient sitting up in bed. Appears in no acute distress, but very lethargic. Dressings changed last night Afebrile Hgb 7.8 R knee: dressings clean dry and intact. Knee immobilizer on. Patient is going to get one unit of PRBC's Barrium Swallow planned for today Cont dressing changes Objective - Vital Signs/Intake and Output Vital Signs (last 24 hours): Temp Pulse Resp BP Pulse Ox 97.9 F 90 18 132/78 98 05/21/18 06:00 05/21/18 06:00 05/21/18 06:00 05/21/18 06:00 05/21/18 06:00 Intake and Output: 05/21/18 05/21/18 06:59 18:59 Intake Total 1991 Balance 1991 - Medications Medications: Current Medications Aspirin (Ecotrin) 81 mg PO DAILY [facility] Last Admin: 05/20/18 09:16 Dose: Not Given Atenolol (Tenormin) 25 mg PO BID [facility] Last Admin: 05/20/18 17:02 Dose: Not Given Digoxin (Digoxin) 0.125 mg PO DAILY [facility] Last Admin: 05/20/18 09:16 Dose: Not Given Enoxaparin Sodium (Lovenox) 60 mg SC Q12H [facility]; Protocol Last Admin: 05/19/18 21:00 Dose: Not Given Multivitamins/Vitamin C 10 ml/Amino Acids/Electrolytes/Dextrose 2,010 mls @ 83 mls/hr IV .Q24H [facility] Stop: 05/24/18 11:16 Fat Emulsion Intravenous (Intralipid 20%) 250 mls @ 21 mls/hr IV MWF@1115 [facility] Potassium Chloride (Potassium Chloride 10 Meq/100 Ml) 10 meq in 100 mls @ 50 mls/hr IVPB ONCE ONE Stop: 05/21/18 10:23 Mupirocin (Bactroban Ointment) 0 gm NS BID [facility] Stop: 05/23/18 10:01 Last Admin: 05/20/18 17:01 Dose: 1 applic Pantoprazole Sodium (Protonix Inj) 40 mg IVP DAILY [facility] Last Admin: 05/20/18 11:17 Dose: 40 mg Warfarin Sodium (Coumadin) 8 mg PO 1800 [facility] Last Admin: 05/19/18 17:10 Dose: Not Given - Labs Labs: 05/21/18 06:45 05/21/18 06:45 PT 11.2 SECONDS (9.4-12.5) 05/21/18 06:45 INR 0.97 05/21/18 06:45 APTT 35.2 Seconds (25.1-36.5) 05/16/18 19:12
[2018-05-21] MEDS: Mupirocin 2% Ointment 15 GM TUBE NS SCH ×2 (10:00→19:34)
[2018-05-21] MEDS ORDERED: Albuterol-Ipratrop 3 mg / 0.5 (3 ml) UD IH STA (10:22)
--- NOTE | 2018-05-21 10:33 | CP.PCM.PN ---
Subjective - Date & Time of Evaluation Date of Evaluation: 05/21/18 Time of Evaluation: 08:00 - Subjective Subjective: Not in distress but still lethargic, feels thirsty and asks for "Sprite." No fevers, no diarrhea. Objective - Vital Signs/Intake and Output Vital Signs (last 24 hours): Temp Pulse Resp BP Pulse Ox 97.3 F L 94 H 16 100/57 L 98 05/20/18 06:00 05/20/18 06:00 05/20/18 06:00 05/20/18 06:00 05/20/18 06:00 - Medications Medications: Current Medications Aspirin (Ecotrin) 81 mg PO DAILY [facility] Last Admin: 05/20/18 09:16 Dose: Not Given Atenolol (Tenormin) 25 mg PO BID [facility] Last Admin: 05/20/18 09:16 Dose: Not Given Digoxin (Digoxin) 0.125 mg PO DAILY [facility] Last Admin: 05/20/18 09:16 Dose: Not Given Enoxaparin Sodium (Lovenox) 60 mg SC Q12H [facility]; Protocol Last Admin: 05/19/18 21:00 Dose: Not Given Fat Emulsion Intravenous (Intralipid 20%) 250 mls @ 21 mls/hr IV MWF@1115 [facility] Last Admin: 05/19/18 11:48 Dose: 21 mls/hr Multivitamins/Vitamin C 10 ml/Amino Acids/Electrolytes/Dextrose 2,010 mls @ 83 mls/hr IV .Q24H [facility] Last Admin: 05/19/18 11:48 Dose: 83 mls/hr Potassium Chloride (Potassium Chloride 10 Meq/100 Ml) 10 meq in 100 mls @ 75 mls/hr IVPB Q2H [facility] Stop: 05/20/18 13:04 Mupirocin (Bactroban Ointment) 0 gm NS BID [facility] Stop: 05/23/18 10:01 Last Admin: 05/20/18 09:16 Dose: Not Given Pantoprazole Sodium (Protonix Inj) 40 mg IVP DAILY [facility] Last Admin: 05/19/18 18:13 Dose: 40 mg Warfarin Sodium (Coumadin) 8 mg PO 1800 [facility] Last Admin: 05/19/18 17:10 Dose: Not Given - Labs Labs: 05/20/18 06:30 05/20/18 06:30 PT 14.0 SECONDS (9.4-12.5) H 05/20/18 06:30 INR 1.21 05/20/18 06:30 APTT 35.2 Seconds (25.1-36.5) 05/16/18 19:12 - Constitutional Appears: Chronically Ill - Head Exam Head Exam: NORMAL INSPECTION - Respiratory Exam Respiratory Exam: Decreased Breath Sounds - Cardiovascular Exam Cardiovascular Exam: +S1, +S2 - GI/Abdominal Exam GI & Abdominal Exam: Soft. 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 Hernandez, she already has had 6 weeks of antibiotics (since 04/08/2018) and there is concern about the thrombocytopenia, nausea and vomiting - the thrombocytopenia is probably multifactorial (including meds such as Zyvox and chronic illness - we are continuing to monitor platelet count and Hematology is on-board, patient also has low Hgb and there may be myelosuppression) - discussed this also with Dr. Watson and we will monitor the CRP - the CRP is still elevated but because the patient is ill, the CRP is not an accurate assessment of the inflammation in the knee - will get another CRP today and observe discussed with Dr. Hernandez - patient to have barium swallow test lactic acid levels are starting to trend downward, patient continued on IV fluids and parenteral nutrition as ordered by Dr. Hernandez - patient needs nutrition so that her right knee is to heal properly talked to Dr. Oliva - she initially considered hyperbaric therapy but after seeing patient, will be deferring it - she will continue to do local wound care on the knee and Bactroban ointment - superficial cultures of the knee area are showing gram positive cocci and it should be covered by Bactroban will continue to monitor clinically overall prognosis is poor
[2018-05-21] MEDS: Digoxin 125 mcg (0.125 mg) Tab PO SCH (10:49)
--- NOTE | 2018-05-21 11:13 | CP.PCM.PN ---
<Gloria Whiteside - Last Filed: 05/21/18 11:15> Subjective - Date & Time of Evaluation Date of Evaluation: 05/21/18 Time of Evaluation: 11:10 - Subjective Subjective: Gloria Whiteside DO, PGY-2: Progress Note for Dr. Waller Patient was seen and examined at bedside. Patient complained that her lips were dry. Patient's family was at the bedside on a subsequent visit in obtaining blood consent. Objective - Vital Signs/Intake and Output Vital Signs (last 24 hours): Temp Pulse Resp BP Pulse Ox 97.9 F 90 18 132/78 98 05/21/18 06:00 05/21/18 06:00 05/21/18 06:00 05/21/18 06:00 05/21/18 06:00 Intake and Output: 05/21/18 05/21/18 06:59 18:59 Intake Total 1991 Balance 1991 - Medications Medications: Current Medications Aspirin (Ecotrin) 81 mg PO DAILY [facility] Last Admin: 05/21/18 10:50 Dose: Not Given Atenolol (Tenormin) 25 mg PO BID [facility] Last Admin: 05/21/18 10:51 Dose: Not Given Digoxin (Digoxin) 0.125 mg PO DAILY [facility] Last Admin: 05/21/18 10:49 Dose: Not Given Digoxin (Lanoxin) 0.25 mg IVP 1400 [facility] Enoxaparin Sodium (Lovenox) 60 mg SC Q12H [facility]; Protocol Last Admin: 05/19/18 21:00 Dose: Not Given Multivitamins/Vitamin C 10 ml/Amino Acids/Electrolytes/Dextrose 2,010 mls @ 83 mls/hr IV .Q24H [facility] Stop: 05/24/18 11:16 Fat Emulsion Intravenous (Intralipid 20%) 250 mls @ 21 mls/hr IV MWF@1115 [facility] Mupirocin (Bactroban Ointment) 0 gm NS BID [facility] Stop: 05/23/18 10:01 Last Admin: 05/20/18 17:01 Dose: 1 applic Pantoprazole Sodium (Protonix Inj) 40 mg IVP DAILY [facility] Last Admin: 05/21/18 10:50 Dose: 40 mg Warfarin Sodium (Coumadin) 8 mg PO 1800 [facility] Last Admin: 05/19/18 17:10 Dose: Not Given - Labs Labs: 05/21/18 06:45 05/21/18 06:45 PT 11.2 SECONDS (9.4-12.5) 05/21/18 06:45 INR 0.97 05/21/18 06:45 APTT 35.2 Seconds (25.1-36.5) 05/16/18 19:12 - Constitutional Appears: Chronically Ill - Head Exam Head Exam: ATRAUMATIC, NORMOCEPHALIC - ENT Exam ENT Exam: Mucous Membranes Dry - Neck Exam Neck Exam: Thyromegaly - Respiratory Exam Respiratory Exam: Clear to Ausculation Bilateral, NORMAL BREATHING PATTERN. absent: Accessory Muscle Use - Cardiovascular Exam Cardiovascular Exam: RRR, +S1, +S2 - GI/Abdominal Exam GI & Abdominal Exam: Soft. absent: Mass, Rebound - Extremities Exam Extremities Exam: absent: Calf Tenderness - Neurological Exam Neurological Exam: Awake, Oriented x3 - Psychiatric Exam Psychiatric exam: Depressed - Skin Skin Exam: Dry, Intact, Normal Color, Warm Assessment and Plan - Assessment and Plan (Free Text) Assessment: 82-year-old female with a PMH of A. 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 1) Lactic acidosis likely secondary to Linezolid for VRE in right knee - Antibiotics have been discontinued - lactate acid level today was 3.3, down from 5.5 yesterday 2) Pancytopenia - Hematology consulted - Darbopoetin 60 mg given yesterday - 1 unit of PRBCs given today - Manual platelet count was 45, automated was 20 - holding warfarin, lovenox, and aspirin - reticulocyte count was not high, suggesting BM has been suppressed 3) FTT, dysphagia - Continue with PPN today - Videofluoroscopy evaluation for dysphagia pending - CT of chest showed goitrous thyroid. - Dr. Kian Perry recommends possible gastric feeding tube in the interim as the patient's oral intake is significantly inadequate - GI is following 4) Atrial fibrillation - Digoxin 0.125 - Atenolol 25 mg PO daily - Coumadin held due to coagulopathy 5) CAD - aspirin currently being held due to low platelets Disposition: Guarded Case was reviewed and discussed with attending physician, Dr. Waller <Ajay Waller S - Last Filed: 05/21/18 21:42> Objective - Vital Signs/Intake and Output Vital Signs (last 24 hours): Temp Pulse Resp BP Pulse Ox 98.1 F 101 H 20 129/84 98 05/21/18 15:45 05/21/18 15:45 05/21/18 15:45 05/21/18 15:45 05/21/18 06:00 Intake and Output: 05/21/18 05/22/18 18:59 06:59 Intake Total 325 Balance 325 - Medications Medications: Current Medications Acetaminophen (Tylenol 325 Mg Supp) 325 mg RC Q6H PRN PRN Reason: Pain, moderate (4-7) Aspirin (Ecotrin) 81 mg PO DAILY [facility] Last Admin: 05/21/18 10:50 Dose: Not Given Atenolol (Tenormin) 25 mg PO BID [facility] Last Admin: 05/21/18 19:33 Dose: Not Given Digoxin (Lanoxin) 0.25 mg IVP 1400 [facility] Last Admin: 05/21/18 17:23 Dose: 0.25 mg Enoxaparin Sodium (Lovenox) 60 mg SC Q12H [facility]; Protocol Last Admin: 05/19/18 21:00 Dose: Not Given Multivitamins/Vitamin C 10 ml/Amino Acids/Electrolytes/Dextrose 2,010 mls @ 83 mls/hr IV .Q24H [facility] Stop: 05/24/18 11:16 Last Admin: 05/21/18 15:50 Dose: 83 mls/hr Fat Emulsion Intravenous (Intralipid 20%) 250 mls @ 21 mls/hr IV MWF@1115 [facility] Last Admin: 05/21/18 16:05 Dose: 21 mls/hr Mupirocin (Bactroban Ointment) 0 gm NS BID [facility] Stop: 05/23/18 10:01 Last Admin: 05/21/18 19:34 Dose: 1 applic Neomycin/Polymyxin/Bacitracin (Neosporin Triple Antibiotic Oint) 1 gm TOP DAILY [facility] Pantoprazole Sodium (Protonix Inj) 40 mg IVP DAILY [facility] Last Admin: 05/21/18 10:50 Dose: 40 mg Warfarin Sodium (Coumadin) 8 mg PO 1800 [facility] Last Admin: 05/19/18 17:10 Dose: Not Given - Labs Labs: 05/21/18 06:45 05/21/18 06:45 PT 11.2 SECONDS (9.4-12.5) 05/21/18 06:45 INR 0.97 05/21/18 06:45 APTT 35.2 Seconds (25.1-36.5) 05/16/18 19:12 Assessment and Plan - Assessment and Plan (Free Text) Assessment: Pt seen and examined. I have reviewed the note of the medical records director and agree with it. I have discussed the assessment and plan with the resident. I have reviewed the patient's labs and medications. Pt with dysphagia and N/V. She has been NPO. She has Zyvox induced anion gap metabolic acidosis due to lactic aci dosis. She has pancytopenia due to the Zyvox. She will get a transfusion of PRBCs She is being followed by GI. ENT evaluation reviewed. I spoke to the daughter to give an update in detail. I went over what the other consultants have said. I went over the labs. We spoke about the anemia and thrombocytopenia. I let her know that Heme was following. She was given an opportunity to ask questions. After our discussion I asked her about her complaints to the administration and her accusation of me lying to her, which she mentioned to the nurse on Saturday. The daughter also threatened the pillowcase folder (Leidy) who was getting information from the daughter. The pt's daughter did confirm that she made that threat. She did not agree that she accused me of lying nor that she had complaints against me to the administration. I feel that she has lost confidence in my ability to take care of her. The pt was seeing me for many years and transferred her care to another PMD. During the last admission the mckayla griggs asked me to resume care and I did. I told the daughter that her behavior was inappropriate and I can not take care of someone who's family is threatening staff. She became angry and did not give me a chance to finish talking to her. I wanted to give her time to seek another physician to take over care. The nurse (Lizeth) spoke to the daughter later and the daughter asked who is going to be the pt's admitting doctor. I advised the nurse to let the daughter know that I will continue to take care of her until tomorrow. If she is able to find another accepting physician, I will transfer care else I will ask the hospitalist to take over. I spoke with Dr Roa to update him about the current situation. I spoke with Dr Weiss (hospitalist) to let him know that the pt may need care starting tomorrow morning. Will get palliative care evaluation. Prognosis is poor. Pt is DNR/DNI.
[2018-05-21] MEDS ORDERED: BACITRACIN TOP SCH ×2 (13:15)
[2018-05-21] MEDS ORDERED: POLYMYXIN B TOP SCH ×2 (13:15)
--- NOTE | 2018-05-21 13:15 | CP.PCM.PN ---
Subjective - Date & Time of Evaluation Date of Evaluation: 05/21/18 Time of Evaluation: 13:00 - Subjective Subjective: Repeatedly asking for son in law Objective - Vital Signs/Intake and Output Vital Signs (last 24 hours): Temp Pulse Resp BP Pulse Ox 98.2 F 102 H 21 111/49 L 98 05/21/18 12:58 05/21/18 12:58 05/21/18 12:58 05/21/18 12:58 05/21/18 06:00 Intake and Output: 05/21/18 05/21/18 06:59 18:59 Intake Total 1991 25 Balance 1991 25 - Medications Medications: Current Medications Aspirin (Ecotrin) 81 mg PO DAILY [facility] Last Admin: 05/21/18 10:50 Dose: Not Given Atenolol (Tenormin) 25 mg PO BID [facility] Last Admin: 05/21/18 10:51 Dose: Not Given Bacitracin/Polymyxin B Sulfate (Bacitracin/Polymyxin B) 1 ea TOP DAILY [facility] Digoxin (Lanoxin) 0.25 mg IVP 1400 [facility] Enoxaparin Sodium (Lovenox) 60 mg SC Q12H [facility]; Protocol Last Admin: 05/19/18 21:00 Dose: Not Given Multivitamins/Vitamin C 10 ml/Amino Acids/Electrolytes/Dextrose 2,010 mls @ 83 mls/hr IV .Q24H [facility] Stop: 05/24/18 11:16 Fat Emulsion Intravenous (Intralipid 20%) 250 mls @ 21 mls/hr IV MWF@1115 [facility] Mupirocin (Bactroban Ointment) 0 gm NS BID [facility] Stop: 05/23/18 10:01 Last Admin: 05/20/18 17:01 Dose: 1 applic Pantoprazole Sodium (Protonix Inj) 40 mg IVP DAILY [facility] Last Admin: 05/21/18 10:50 Dose: 40 mg Warfarin Sodium (Coumadin) 8 mg PO 1800 [facility] Last Admin: 05/19/18 17:10 Dose: Not Given - Labs Labs: 05/21/18 06:45 05/21/18 06:45 PT 11.2 SECONDS (9.4-12.5) 05/21/18 06:45 INR 0.97 05/21/18 06:45 APTT 35.2 Seconds (25.1-36.5) 05/16/18 19:12 - Head Exam Head Exam: ATRAUMATIC - ENT Exam ENT Exam: Mucous Membranes Dry - Respiratory Exam Respiratory Exam: Decreased Breath Sounds - Cardiovascular Exam Cardiovascular Exam: +S1, +S2 - GI/Abdominal Exam GI & Abdominal Exam: Normal Bowel Sounds Assessment and Plan (1) Thrombocytopenia Assessment & Plan: suspect medication induced; Zyvox can cause cytopenias Zyvox has been discontinued agree with holding antiplatelet and coumadin for now; okay to restart when plt > 50,000 of note, pt will have plt dysfunction from uremia low fibrinogen noted and improved today; no active infection to suggest DIC - ? stunned liver function Status: Acute (2) Anemia Assessment & Plan: hypoproliferative erythroid response anemia of chronic disease no iron/b12/folate deficiency given a dose of erythropoietin 1 unit PRBC today Status: Acute (3) Coagulopathy Assessment & Plan: nutritional low fibrinogen but improved ? stunned synthetic function of liver Status: Acute
--- NOTE | 2018-05-21 13:26 | CP.PCM.PN ---
Subjective - Date & Time of Evaluation Date of Evaluation: 05/21/18 Time of Evaluation: 13:23 - Subjective Subjective: Podiatry progress note for Dr. Oliva 82 yo female seen and evaluated at bedside. Seen in distress, coughing constantly and eyes closed for the duration of the visit. Patient states that she is in pain at her right knee from the surgical site. Complains of N/V, no fever or chills, SOB present, no CP. Has no other pedal complaints. Nurses state sugar level is low and she is very lethargic and in pain. Objective - Vital Signs/Intake and Output Vital Signs (last 24 hours): Temp Pulse Resp BP Pulse Ox 98.2 F 102 H 21 111/49 L 98 05/21/18 12:58 05/21/18 12:58 05/21/18 12:58 05/21/18 12:58 05/21/18 06:00 Intake and Output: 05/21/18 05/21/18 06:59 18:59 Intake Total 1991 25 Balance 1991 25 - Medications Medications: Current Medications Aspirin (Ecotrin) 81 mg PO DAILY [facility] Last Admin: 05/21/18 10:50 Dose: Not Given Atenolol (Tenormin) 25 mg PO BID [facility] Last Admin: 05/21/18 10:51 Dose: Not Given Bacitracin/Polymyxin B Sulfate (Bacitracin/Polymyxin B) 1 ea TOP DAILY [facility] Digoxin (Lanoxin) 0.25 mg IVP 1400 [facility] Enoxaparin Sodium (Lovenox) 60 mg SC Q12H [facility]; Protocol Last Admin: 05/19/18 21:00 Dose: Not Given Multivitamins/Vitamin C 10 ml/Amino Acids/Electrolytes/Dextrose 2,010 mls @ 83 mls/hr IV .Q24H [facility] Stop: 05/24/18 11:16 Fat Emulsion Intravenous (Intralipid 20%) 250 mls @ 21 mls/hr IV MWF@1115 [facility] Mupirocin (Bactroban Ointment) 0 gm NS BID [facility] Stop: 05/23/18 10:01 Last Admin: 05/20/18 17:01 Dose: 1 applic Pantoprazole Sodium (Protonix Inj) 40 mg IVP DAILY [facility] Last Admin: 05/21/18 10:50 Dose: 40 mg Warfarin Sodium (Coumadin) 8 mg PO 1800 [facility] Last Admin: 05/19/18 17:10 Dose: Not Given - Labs Labs: 05/21/18 06:45 05/21/18 06:45 PT 11.2 SECONDS (9.4-12.5) 05/21/18 06:45 INR 0.97 05/21/18 06:45 APTT 35.2 Seconds (25.1-36.5) 05/16/18 19:12 - Constitutional Appears: Well, Non-toxic - Head Exam Head Exam: ATRAUMATIC, NORMOCEPHALIC - Extremities Exam Additional comments: R LE focused exam: Vasc: DP/PT faintly palpable. Cap refill< 3 sec to all digits. Temp gradient warm to cool. No edema. Multiple ecchymotic patches extends from the periwound area at the knee joint all the way down to the R ankle. Periwound erythema noted. Neuro: Gross and protective sensations are intact. Derm: An open wound measures [id number]. Minimal purulent drainage noted. No malodor. Base is mixed necrotic,granular and fibrous 40:40:20. No probe to bone, no tracking or undermining. Periwound erythema and ecchymosis noted. Positive clinical signs of infection. Wound regressing as skin appears to darken in color periwound and down the leg. MSK: Severe pain on palpating the periwound area. Muscle power around the knee joint couldn't be assessed due to pain and guarding. Passive and active ROM could be performed with guarding at the level of the R foot and ankle. - Neurological Exam Neurological Exam: Alert, Awake - Psychiatric Exam Psychiatric exam: Normal Affect, Normal Mood Assessment and Plan - Assessment and Plan (Free Text) Assessment: 82 yo female with infected right knee wound and osteomyelitis Plan: Patient seen and evaluated at the bedside Charts, labs and vitals reviewed; Afebrile, No leukocytosis Wound culture collected, ordered and sent to the lab - gram negative sonido Blood culture (05/16) Preliminary; No growth after 24 hours. Wound cleansed gently with sterile saline, bactroban, xeroform, ABD applied, ABD taped down as lifting leg is too painful for patient Right knee x-ray - prosthesis removed, cement spacer in place ID consulted; recommendations appreciated - will d/c abx as of now as already finished 6 week course Focus on replenishing nutrition levels for patient Continue medical management per medicine and ID team Podiatry will continue to follow patient while in house.
[2018-05-21] MEDS: Fat Emulsion 20% IV 250 ML IV SCH ×2 (15:51→16:05)
[2018-05-21] MEDS: Digoxin 500 mcg/2ml (0.5 mg/2ml) Inj IVP SCH (17:23)
--- NOTE | 2018-05-21 18:45 | CP.PCM.PN ---
<Sunni Rangel - Last Filed: 05/21/18 18:46> Subjective - Date & Time of Evaluation Date of Evaluation: 05/21/18 Time of Evaluation: 18:46 - Subjective Subjective: Gastroenterology Fellow/PGY6 Progress Note Patient resting comfortably. Tolerating sips of water. Continues to be weak. Daughter at bedside. A 12-point review of systems negative except for as above. Objective - Vital Signs/Intake and Output Vital Signs (last 24 hours): Temp Pulse Resp BP Pulse Ox 98.1 F 101 H 20 129/84 98 05/21/18 15:45 05/21/18 15:45 05/21/18 15:45 05/21/18 15:45 05/21/18 06:00 Intake and Output: 05/21/18 05/21/18 06:59 18:59 Intake Total 1991 325 Balance 1991 325 - Medications Medications: Current Medications Acetaminophen (Tylenol 325 Mg Supp) 325 mg RC Q6H PRN PRN Reason: Pain, moderate (4-7) Aspirin (Ecotrin) 81 mg PO DAILY [facility] Last Admin: 05/21/18 10:50 Dose: Not Given Atenolol (Tenormin) 25 mg PO BID [facility] Last Admin: 05/21/18 10:51 Dose: Not Given Digoxin (Lanoxin) 0.25 mg IVP 1400 [facility] Last Admin: 05/21/18 17:23 Dose: 0.25 mg Enoxaparin Sodium (Lovenox) 60 mg SC Q12H [facility]; Protocol Last Admin: 05/19/18 21:00 Dose: Not Given Multivitamins/Vitamin C 10 ml/Amino Acids/Electrolytes/Dextrose 2,010 mls @ 83 mls/hr IV .Q24H [facility] Stop: 05/24/18 11:16 Last Admin: 05/21/18 15:50 Dose: 83 mls/hr Fat Emulsion Intravenous (Intralipid 20%) 250 mls @ 21 mls/hr IV MWF@1115 [facility] Last Admin: 05/21/18 16:05 Dose: 21 mls/hr Mupirocin (Bactroban Ointment) 0 gm NS BID [facility] Stop: 05/23/18 10:01 Last Admin: 05/20/18 17:01 Dose: 1 applic Neomycin/Polymyxin/Bacitracin (Neosporin Triple Antibiotic Oint) 1 gm TOP DAILY [facility] Pantoprazole Sodium (Protonix Inj) 40 mg IVP DAILY [facility] Last Admin: 05/21/18 10:50 Dose: 40 mg Warfarin Sodium (Coumadin) 8 mg PO 1800 [facility] Last Admin: 05/19/18 17:10 Dose: Not Given - Labs Labs: 05/21/18 06:45 05/21/18 06:45 PT 11.2 SECONDS (9.4-12.5) 05/21/18 06:45 INR 0.97 05/21/18 06:45 APTT 35.2 Seconds (25.1-36.5) 05/16/18 19:12 - Constitutional Appears: Non-toxic, No Acute Distress - Head Exam Head Exam: ATRAUMATIC, NORMOCEPHALIC - Eye Exam Eye Exam: EOMI, PERRL. absent: Scleral icterus Pupil Exam: PERRL. absent: Miosis, Mydriatic - ENT Exam ENT Exam: Mucous Membranes Moist, Normal Oropharynx - Neck Exam Neck Exam: Full ROM, Normal Inspection - Respiratory Exam Respiratory Exam: Clear to Ausculation Bilateral. absent: Rales, Rhonchi, Wheezes - Cardiovascular Exam Cardiovascular Exam: RRR, +S1, +S2. absent: Gallop, Rubs - GI/Abdominal Exam GI & Abdominal Exam: Soft, Normal Bowel Sounds. absent: Distended, Firm, Gu arding, Rigid, Tenderness, Organomegaly, Rebound - Extremities Exam Extremities Exam: Normal Inspection. 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 Active treatment of intractable vomiting, failure to thrive, and unintentional weight loss. Prior EGD 04/2018 showed gastritis. Patient denies prior colonoscopy. Plan: -dysphagia, multifactorial - motility dysfunction, deconditioning -05/21 swallow evaluation- sips of water or sprite only -unable to tolerate modified Barium swallow -CT chest- negative -EGD 04/2018- no esophageal pathology or signs of gastric outlet obstruction -recent completion of 6 week course of antibiotics- zyvox, and daptomycin, dis continued -neurology recommendation- no signs of neuromuscular disorder -CT head negative -discussion held with daughter regarding clinical status and workup -daughter expresses understanding -daughter states she requested for a comfort care discussion for education and family planning -daughter states- patient refuses feeding tube placement as part of her established advanced directives -will follow clinical course <Howard Olguin V - Last Filed: 05/22/18 23:39> Objective - Vital Signs/Intake and Output Vital Signs (last 24 hours): Temp Pulse Resp BP Pulse Ox 98 F 94 H 20 130/68 95 05/22/18 22:38 05/22/18 22:38 05/22/18 22:38 05/22/18 22:38 05/22/18 22:38 Intake and Output: 05/22/18 05/23/18 18:59 06:59 Intake Total 0 Balance 0 - Medications Medications: Current Medications Acetaminophen (Tylenol 325 Mg Supp) 325 mg RC Q6H PRN PRN Reason: Pain, moderate (4-7) Aspirin (Ecotrin) 81 mg PO DAILY [facility] Last Admin: 05/22/18 10:49 Dose: Not Given Atenolol (Tenormin) 25 mg PO BID [facility] Last Admin: 05/22/18 19:17 Dose: Not Given Digoxin (Lanoxin) 0.25 mg IVP 1400 [facility] Last Admin: 05/22/18 14:19 Dose: 0.25 mg Enoxaparin Sodium (Lovenox) 60 mg SC Q12H [facility]; Protocol Last Admin: 05/19/18 21:00 Dose: Not Given Multivitamins/Vitamin C 10 ml/Amino Acids/Electrolytes/Dextrose 2,010 mls @ 83 mls/hr IV .Q24H [facility] Stop: 05/24/18 11:16 Last Admin: 05/22/18 12:29 Dose: 83 mls/hr Fat Emulsion Intravenous (Intralipid 20%) 250 mls @ 21 mls/hr IV MWF@1115 [facility] Last Admin: 05/21/18 16:05 Dose: 21 mls/hr Mupirocin (Bactroban Ointment) 0 gm NS BID [facility] Stop: 05/23/18 10:01 Last Admin: 05/22/18 19:16 Dose: 1 applic Neomycin/Polymyxin/Bacitracin (Neosporin Triple Antibiotic Oint) 1 gm TOP DAILY [facility] Last Admin: 05/22/18 10:00 Dose: Not Given Pantoprazole Sodium (Protonix Inj) 40 mg IVP DAILY [facility] Last Admin: 05/22/18 10:49 Dose: 40 mg Warfarin Sodium (Coumadin) 8 mg PO 1800 [facility] Last Admin: 05/19/18 17:10 Dose: Not Given - Labs Labs: 05/22/18 06:20 05/22/18 06:20 PT 12.1 SECONDS (9.4-12.5) 05/22/18 06:20 INR 1.05 05/22/18 06:20 APTT 35.2 Seconds (25.1-36.5) 05/16/18 19:12 Attending/Attestation - Attestation I have personally seen and examined this patient.: Yes I have fully participated in the care of the patient.: Yes I have reviewed all pertinent clinical information, including history, physical exam and plan: Yes
--- NOTE | 2018-05-21 21:31 | CON ---
DATE: 05/21/2018 HISTORY OF PRESENT ILLNESS: Shortly, the patient is 82-year-old female with multiple medical issues. The patient was admitted on the medical side for evaluation of nausea and vomiting. The patient has hypertension, coronary artery disease, AFib, osteoarthritis, right knee replacement and many more. Please see medical team notes for more detailed information. Psych consult was called for evaluation of depression and incompetency. This policy writer is very familiar with this patient from the previous admissions on the medical side. The patient was seen and examined. The patient was not able to participate in interview. The patient was moaning during the interview. The patient was asked to spit out her saliva. The patient's family is next to her. The patient's daughter, Iftikhar is next to her and she said that she is her power of health careers instructor. The patient's daughter is not aware why this policy writer is involved into the patient's care. The patient daughter said that her mother has a lot of medical issues at this point and does not feel that her mother need to be seen by psychiatrist. This policy writer reviewed vital signs. The patient is tachycardic, temperature 98.1, blood pressure 129/84, respiration 20. Medications reviewed. The patient is on n.p.o. on IV hydration. Labs reviewed. Microbiology reviewed, gram-negative rods. MENTAL STATUS EXAMINATION: The patient is sitting with her eyes closed. The patient reported her mood to be "how do you think I am?" The patient denied any thoughts of harming self or others. Denied intent or plan. No agitation or aggression. No signs of psychosis. IMPRESSION: Most likely, the patient has mood disorder due to general medical condition. PLAN: This policy writer had quick conversation with the family. As per family, the patient never expressed thoughts of harming herself or others at this admission. The patient is not psychotic, the patient is not agitated. This policy writer suggested if the patient needs to be evaluated for capacity to make decisions, the patient's daughter should be involved because she is her power of health careers instructor for medical issues. The patient daughter was advised to present legal documents to the hospital. Meanwhile, there are no acute issues going on from the psychiatric standpoint. I wish the patient best of luck, but I will sign off. The patient pose no imminent danger to self or others. Should you have any questions, give me a call back. Ashely Klein MD
[2018-05-22] MEDS ORDERED: Morphine 2 mg/ml ISec IVP STA (01:26)
[2018-05-22 06:59] LABS: BASO # 0.02 K/mm3 (0.0-2.0); BASO % 0.3 % (0.0-3.0); EOS # 0.1 (0.0-0.7); EOS % 1.7 % (1.5-5.0); GRAN # 4.09 (1.4-6.5); GRAN % 54.6 % (50.0-68.0); HEMOGLOBIN 8.4 g/dL (12.0-16.0); MEAN CELL VOLUME 84.6 fl (80.0-105.0); MEAN CORPUSCULAR HEMOGLOBIN 28.2 pg (25.0-35.0); MEAN CORPUSCULAR HGB CONC 33.3 g/dl (31.0-37.0); MONO # 1.3 (0.1-0.6); MONO % 17.4 % (1.0-6.0); RBC 2.98 10^6/uL (3.5-6.1); RED CELL DISTRIBUTION WIDTH 17.3 % (11.5-14.5); WHITE BLOOD COUNT 7.5 10^3/uL (4.5-11.0)
[2018-05-22 07:03] LABS: INR 1.05; PROTHROMBIN TIME 12.1 SECONDS (9.4-12.5)
[2018-05-22 07:30] LABS: PLATELET COUNT 19 10^3/uL (120.0-450.0)
--- NOTE | 2018-05-22 07:55 | CP.PCM.PN ---
Subjective - Date & Time of Evaluation Date of Evaluation: 05/22/18 Time of Evaluation: 07:55 Objective - Vital Signs/Intake and Output Vital Signs (last 24 hours): Temp Pulse Resp BP Pulse Ox 98.1 F 101 H 20 129/84 98 05/21/18 15:45 05/21/18 15:45 05/21/18 15:45 05/21/18 15:45 05/21/18 06:00 - Medications Medications: Current Medications Acetaminophen (Tylenol 325 Mg Supp) 325 mg RC Q6H PRN PRN Reason: Pain, moderate (4-7) Aspirin (Ecotrin) 81 mg PO DAILY [facility] Last Admin: 05/21/18 10:50 Dose: Not Given Atenolol (Tenormin) 25 mg PO BID [facility] Last Admin: 05/21/18 19:33 Dose: Not Given Digoxin (Lanoxin) 0.25 mg IVP 1400 [facility] Last Admin: 05/21/18 17:23 Dose: 0.25 mg Enoxaparin Sodium (Lovenox) 60 mg SC Q12H [facility]; Protocol Last Admin: 05/19/18 21:00 Dose: Not Given Multivitamins/Vitamin C 10 ml/Amino Acids/Electrolytes/Dextrose 2,010 mls @ 83 mls/hr IV .Q24H [facility] Stop: 05/24/18 11:16 Last Admin: 05/21/18 15:50 Dose: 83 mls/hr Fat Emulsion Intravenous (Intralipid 20%) 250 mls @ 21 mls/hr IV MWF@1115 [facility] Last Admin: 05/21/18 16:05 Dose: 21 mls/hr Mupirocin (Bactroban Ointment) 0 gm NS BID [facility] Stop: 05/23/18 10:01 Last Admin: 05/21/18 19:34 Dose: 1 applic Neomycin/Polymyxin/Bacitracin (Neosporin Triple Antibiotic Oint) 1 gm TOP DAILY [facility] Pantoprazole Sodium (Protonix Inj) 40 mg IVP DAILY [facility] Last Admin: 05/21/18 10:50 Dose: 40 mg Warfarin Sodium (Coumadin) 8 mg PO 1800 [facility] Last Admin: 05/19/18 17:10 Dose: Not Given - Labs Labs: 05/22/18 06:20 05/21/18 06:45 PT 12.1 SECONDS (9.4-12.5) 05/22/18 06:20 INR 1.05 05/22/18 06:20 APTT 35.2 Seconds (25.1-36.5) 05/16/18 19:12
--- NOTE | 2018-05-22 08:08 | CP.PCM.PN ---
<Giuseppe Freed - Last Filed: 05/22/18 08:51> Subjective - Date & Time of Evaluation Date of Evaluation: 05/22/18 Time of Evaluation: 08:06 - Subjective Subjective: Podiatry progress note for Dr. Oliva 82 yo female seen and evaluated at bedside. Seen in distress, more talkative this morning, complaining of thirst and asking for her daughter to come visit. Patient states that she is in pain at her right knee from the surgical site. Complains of N/V, no fever or chills, SOB present, no CP. Has no other pedal complaints. Nurses state sugar level is low and she is very lethargic and in pain. Tolerating sponge helpings of water and handling sponge on her own. Objective - Vital Signs/Intake and Output Vital Signs (last 24 hours): Temp Pulse Resp BP Pulse Ox 98.1 F 101 H 20 129/84 98 05/21/18 15:45 05/21/18 15:45 05/21/18 15:45 05/21/18 15:45 05/21/18 06:00 - Medications Medications: Current Medications Acetaminophen (Tylenol 325 Mg Supp) 325 mg RC Q6H PRN PRN Reason: Pain, moderate (4-7) Aspirin (Ecotrin) 81 mg PO DAILY [facility] Last Admin: 05/21/18 10:50 Dose: Not Given Atenolol (Tenormin) 25 mg PO BID [facility] Last Admin: 05/21/18 19:33 Dose: Not Given Digoxin (Lanoxin) 0.25 mg IVP 1400 [facility] Last Admin: 05/21/18 17:23 Dose: 0.25 mg Enoxaparin Sodium (Lovenox) 60 mg SC Q12H [facility]; Protocol Last Admin: 05/19/18 21:00 Dose: Not Given Multivitamins/Vitamin C 10 ml/Amino Acids/Electrolytes/Dextrose 2,010 mls @ 83 mls/hr IV .Q24H [facility] Stop: 05/24/18 11:16 Last Admin: 05/21/18 15:50 Dose: 83 mls/hr Fat Emulsion Intravenous (Intralipid 20%) 250 mls @ 21 mls/hr IV MWF@1115 [facility] Last Admin: 05/21/18 16:05 Dose: 21 mls/hr Mupirocin (Bactroban Ointment) 0 gm NS BID [facility] Stop: 05/23/18 10:01 Last Admin: 05/21/18 19:34 Dose: 1 applic Neomycin/Polymyxin/Bacitracin (Neosporin Triple Antibiotic Oint) 1 gm TOP DAILY [facility] Pantoprazole Sodium (Protonix Inj) 40 mg IVP DAILY [facility] Last Admin: 05/21/18 10:50 Dose: 40 mg Warfarin Sodium (Coumadin) 8 mg PO 1800 [facility] Last Admin: 05/19/18 17:10 Dose: Not Given - Labs Labs: 05/22/18 06:20 05/21/18 06:45 PT 12.1 SECONDS (9.4-12.5) 05/22/18 06:20 INR 1.05 05/22/18 06:20 APTT 35.2 Seconds (25.1-36.5) 05/16/18 19:12 - Constitutional Appears: Well, Non-toxic - Head Exam Head Exam: ATRAUMATIC, NORMOCEPHALIC - Extremities Exam Additional comments: R LE focused exam: Vasc: DP/PT faintly palpable. Cap refill< 3 sec to all digits. Temp gradient warm to cool. No edema. Multiple ecchymotic patches extends from the periwound area at the knee joint all the way down to the R ankle. Periwound erythema noted. Neuro: Gross and protective sensations are intact. Derm: An open wound measures [id number]. Minimal purulent drainage noted. No malodor. Base is mixed necrotic,granular and fibrous 40:40:20. No probe to bone, no tracking or undermining. Periwound erythema and ecchymosis noted. Positive clinical signs of infection. Wound regressing as skin appears to darken in color periwound and down the leg. MSK: Severe pain on palpating the periwound area. Muscle power around the knee joint couldn't be assessed due to pain and guarding. Passive and active ROM co uld be performed with guarding at the level of the R foot and ankle. - Neurological Exam Neurological Exam: Alert, Awake - Psychiatric Exam Psychiatric exam: Normal Affect, Normal Mood Assessment and Plan - Assessment and Plan (Free Text) Assessment: 82 yo female with infected right knee wound and osteomyelitis Plan: Patient seen and evaluated at the bedside Charts, labs and vitals reviewed; Afebrile, No leukocytosis Wound culture collected, ordered and sent to the lab - gram negative sonido Blood culture (05/16) Preliminary; No growth after 24 hours. Wound cleansed gently with sterile saline, bactroban, xeroform, ABD applied, ABD taped down as lifting leg is too painful for patient Patient refused multipodus boot for both feet, aware of possibility of pressure ulcer Right knee x-ray - prosthesis removed, cement spacer in place ID consulted; recommendations appreciated - will d/c abx as of now as already finished 6 week course Focus on replenishing nutrition levels for patient Continue medical management per medicine and ID team Podiatry will continue to follow patient while in house. <Kristen Oliva - Last Filed: 05/31/18 15:39> Objective - Vital Signs/Intake and Output Vital Signs (last 24 hours): Temp Pulse Resp BP Pulse Ox 98.2 F 59 L 20 130/63 97 05/31/18 14:00 05/31/18 14:00 05/31/18 14:00 05/31/18 14:00 05/31/18 14:00 - Medications Medications: Current Medications Acetaminophen (Tylenol 325mg Tab) 650 mg PO Q6H PRN PRN Reason: Pain, moderate (4-7) Last Admin: 05/30/18 16:19 Dose: 650 mg Apixaban (Eliquis) 2.5 mg PO BID [facility]; Protocol Last Admin: 05/31/18 11:25 Dose: 2.5 mg Aspirin (Ecotrin) 81 mg PO DAILY [facility] Last Admin: 05/31/18 11:25 Dose: 81 mg Atenolol (Tenormin) 25 mg PO BID [facility] Last Admin: 05/31/18 11:25 Dose: 25 mg Atorvastatin Calcium (Lipitor) 20 mg PO DIN [facility] Last Admin: 05/30/18 17:32 Dose: 20 mg Digoxin (Lanoxin) 0.25 mg PO 1400 [facility] Last Admin: 05/30/18 15:33 Dose: 0.25 mg Enoxaparin Sodium (Lovenox) 60 mg SC Q12H [facility]; Protocol Last Admin: 05/19/18 21:00 Dose: Not Given Mirtazapine (Remeron) 15 mg PO HS [facility] Last Admin: 05/30/18 21:15 Dose: Not Given Ondansetron HCl (Zofran Inj) 4 mg IVP Q6H PRN PRN Reason: Nausea/Vomiting Pantoprazole Sodium (Protonix Inj) 40 mg IVP DAILY [facility] Last Admin: 05/31/18 11:25 Dose: 40 mg - Labs Labs: 05/31/18 07:00 05/31/18 07:00 PT 16.7 SECONDS (9.4-12.5) H 05/31/18 07:00 INR 1.44 05/31/18 07:00 APTT 35.2 Seconds (25.1-36.5) 05/16/18 19:12 Attending/Attestation - Attestation I have personally seen and examined this patient.: Yes I have fully participated in the care of the patient.: Yes I have reviewed all pertinent clinical information, including history, physical exam and plan: Yes
[2018-05-22 08:10] LABS: ALBUMIN 2.6 g/dL (3.0-4.8); ALT/SGPT 28 U/L (7-56); AST/SGOT 20 U/L (14-36); BLOOD UREA NITROGEN 32 mg/dL (7-21); CALCIUM 8.4 mg/dL (8.4-10.5); GFR NON-AFRICAN AMERICAN > 60
--- NOTE | 2018-05-22 08:56 | CP.PCM.CON ---
History of Present Illness - History of Present Illness History of Present Illness: Palliative consult requested by Dr Aroldo Waller Reason: Goals of care 82 year old female with history of A Fib, CAD, HTN and sepsis of right knee s/p replacement and subsequent hardware remodel who was sent from [facility] with nausea, vomiting, anemia,poor appetite, anemia, thrombocytopenia, AMS,dysphagia and weight loss. She has been on assisted antibiotics (Zyvox). She has been experiencing weight loss( 30 pound)/ poor appetite and fatigue for two months. Previous EGD showed gastritis. CT of head 04/23/18 negative. Imaging: Chest x ray: No active disease R Knee xray: s/p removal of right knee prosthesis, join space now filled with cement, some increased separation of the cement bone interface of distal femur CT of chest: enlarged thyroid consistent with goiter, no other findings Labs 05/16: Wbc 6.9. Hgb 10.8, Plt 105, Na 138, K 4.8, BUN 63, Manager Risk 1.4, glucose 120, Phos 5.8, mag 2.6, AST 31, ALT 19, T protein 6.9,Dig 0.8 Albumin 2.9. Urine negative. Blood/urine cultures negative. R knee wound > Gram Negative Rods Lactic Acid 10.7 EKG: A Fib with PVC's, T/T wave abnormality consider inferolateral ischemia or digitalis effect PMHX:A Fib on Coumadin, CAD s/p PCI, HTN, OA, sepsis PSHX:s/p r knee replacement and subsequent hardware removal Social History: Never smoker, no alcohol or drug use. Lived at home, recently at [facility] Family History:No Contributory Advance Care Planning: Advance Directive; DNR/DNI. Review of Systems:As per HPI, otherwise negative ROS Past Patient History - Infectious Disease Hx of Infectious Diseases: None - Tetanus Immunizations Tetanus Immunization: Unknown - Past Medical History & Family History Past Medical History?: Yes - Past Social History Smoking Status: Never Smoked - CARDIAC Hx Cardiac Disorders: Yes Hx Congestive Heart Failure: Yes Hx Hypercholesterolemia: Yes Hx Hypertension: Yes - PULMONARY Hx Respiratory Disorders: Yes Hx Pneumonia: Yes - NEUROLOGICAL Hx Neurological Disorder: Yes Hx Dizziness: Yes - HEENT Hx HEENT Problems: Yes (LAZY EYE LEFT EYE) Hx Cataracts: Yes - RENAL Hx Chronic Kidney Disease: No - ENDOCRINE/METABOLIC Hx Endocrine Disorders: No - HEMATOLOGICAL/ONCOLOGICAL Hx Blood Transfusions: Yes Hx Blood Transfusion Reaction: No - INTEGUMENTARY Hx Dermatological Problems: Yes Other/Comment: RIGHT KNEE SURGERY -WOUND VAC-KNEE IMMOBILIZER - MUSCULOSKELETAL/RHEUMATOLOGICAL Hx Musculoskeletal Disorders: Yes (ORIF RIGHT TIBIA 1989) Hx Arthritis: Yes Hx Degenerative Joint Disease: Yes Hx Falls: Yes Hx Fractures: Yes (RIGHT LEG ,ANKLE) Hx Osteoporosis: Yes Hx Unsteady Gait: Yes - GASTROINTESTINAL Hx Gastrointestinal Disorders: Yes (HEMORRHOIDS,CONSTIPATION) - GENITOURINARY/GYNECOLOGICAL Hx Genitourinary Disorders: Yes (PMB) - PSYCHIATRIC Hx Psychophysiologic Disorder: No Hx Substance Use: No - SURGICAL HISTORY Hx Mastectomy: No Other/Comment: ORIF RIGHT TIBIA 1989,BILATERAL CATARACT SX, - ANESTHESIA Hx Anesthesia Reactions: No (VOMITING) Hx Malignant Hyperthermia: No Meds Allergies/Adverse Reactions: Allergies Allergy/AdvReac Type Severity Reaction Status Date / Time diphenhydramine Allergy Severe unknown Verified 05/16/18 18:22 [From Benadryl] nitroglycerin Allergy Severe ANAPHYLAXIS Verified 05/16/18 18:22 pcn Allergy Severe RASH Uncoded 05/16/18 18:22 silk tape Allergy blisters Uncoded 05/16/18 18:22 chocolate candy AdvReac Severe HEADACHE Uncoded 05/16/18 18:22 - Medications Medications: Current Medications Acetaminophen (Tylenol 325 Mg Supp) 325 mg RC Q6H PRN PRN Reason: Pain, moderate (4-7) Aspirin (Ecotrin) 81 mg PO DAILY [facility] Last Admin: 05/21/18 10:50 Dose: Not Given Atenolol (Tenormin) 25 mg PO BID [facility] Last Admin: 05/21/18 19:33 Dose: Not Given Digoxin (Lanoxin) 0.25 mg IVP 1400 [facility] Last Admin: 05/21/18 17:23 Dose: 0.25 mg Enoxaparin Sodium (Lovenox) 60 mg SC Q12H [facility]; Protocol Last Admin: 05/19/18 21:00 Dose: Not Given Multivitamins/Vitamin C 10 ml/Amino Acids/Electrolytes/Dextrose 2,010 mls @ 83 mls/hr IV .Q24H [facility] Stop: 05/24/18 11:16 Last Admin: 05/21/18 15:50 Dose: 83 mls/hr Fat Emulsion Intravenous (Intralipid 20%) 250 mls @ 21 mls/hr IV MWF@1115 [facility] Last Admin: 05/21/18 16:05 Dose: 21 mls/hr Mupirocin (Bactroban Ointment) 0 gm NS BID [facility] Stop: 05/23/18 10:01 Last Admin: 05/21/18 19:34 Dose: 1 applic Neomycin/Polymyxin/Bacitracin (Neosporin Triple Antibiotic Oint) 1 gm TOP DAILY [facility] Pantoprazole Sodium (Protonix Inj) 40 mg IVP DAILY [facility] Last Admin: 05/21/18 10:50 Dose: 40 mg Warfarin Sodium (Coumadin) 8 mg PO 1800 [facility] Last Admin: 05/19/18 17:10 Dose: Not Given Physical Exam - Constitutional Appears: Cachectic, Chronically Ill - Head Exam Head Exam: NORMOCEPHALIC - Eye Exam Eye Exam: Normal appearance, PERRL - ENT Exam ENT Exam: Mucous Membranes Moist, Normal Oropharynx - Neck Exam Neck exam: Positive for: Normal Inspection - Respiratory Exam Respiratory Exam: Decreased Breath Sounds, NORMAL BREATHING PATTERN - Cardiovascular Exam Cardiovascular Exam: Irregular Rhythm, +S1, +S2 - GI/Abdominal Exam GI & Abdominal Exam: Soft - Extremities Exam Extremities exam: Positive for: normal capillary refill, pedal pulses present Additional comments: right knee s/p surgical wound - Psychiatric Exam Psychiatric exam: Depressed, Flat Affect - Skin Skin Exam: Dry, Pallor - Additional Findings Additional findings: Palliative performance scale rating 30% Results - Vital Signs Recent Vital Signs: Last Vital Signs Temp 98.1 F 05/21/18 15:45 Pulse 101 H 05/21/18 15:45 Resp 20 05/21/18 15:45 BP 129/84 05/21/18 15:45 Pulse Ox 98 05/21/18 06:00 - Labs Result Diagrams: 05/23/18 06:00 05/23/18 06:00 Labs: Laboratory Results - last 24 hr 05/21/18 05/21/18 05/21/18 07:00 10:20 10:20 WBC RBC Hgb Hct MCV MCH MCHC RDW Plt Count Manual Plt Count 44 L* Gran % Lymph % (Auto) [place] % (Auto) Eos % (Auto) Baso % (Auto) Gran # Lymph # (Auto) [place] # (Auto) Eos # (Auto) Baso # (Auto) PT INR Sodium Potassium Chloride Carbon Dioxide Anion Gap BUN Creatinine Est GFR ( Amer) Est GFR (Non-Af Amer) Random Glucose Lactic Acid 3.3 H Calcium Phosphorus Magnesium Total Bilirubin AST ALT Alkaline Phosphatase Total Protein Albumin Globulin Albumin/Globulin Ratio Blood Type O NEGATIVE Antibody Screen Negative Crossmatch See Detail BBK History Checked Patient has bt 05/22/18 05/22/18 05/22/18 06:20 06:20 06:20 WBC 7.5 D RBC 2.98 L Hgb 8.4 L Hct 25.2 L MCV 84.6 MCH 28.2 MCHC 33.3 RDW 17.3 H Plt Count 19 L* Manual Plt Count Gran % 54.6 Lymph % (Auto) 26.0 [place] % (Auto) 17.4 H Eos % (Auto) 1.7 Baso % (Auto) 0.3 Gran # 4.09 Lymph # (Auto) 2.0 [place] # (Auto) 1.3 H Eos # (Auto) 0.1 Baso # (Auto) 0.02 PT 12.1 INR 1.05 Sodium 149 H Potassium 4.1 Chloride 113 H Carbon Dioxide 32 Anion Gap 7 L BUN 32 H Creatinine 0.5 L Est GFR ( Amer) > 60 Est GFR (Non-Af Amer) > 60 Random Glucose 126 H Lactic Acid Calcium 8.4 Phosphorus 3.2 Magnesium 2.6 H Total Bilirubin 1.2 AST 20 ALT 28 Alkaline Phosphatase 75 Total Protein 5.3 L Albumin 2.6 L Globulin 2.7 Albumin/Globulin Ratio 1.0 L Blood Type Antibody Screen Crossmatch BBK History Checked Assessment & Plan - Assessment and Plan (Free Text) Assessment: 82 year old female with history of CAD,HTN, sepsis, who is admitted with vomiting, anorexia, anemia, thrombocytopenia,failure to thrive,sespsis. The patient is alert, forgetful. Denies pain. Offers no complaints Jeannette LEVIN and I met with patients daughter's Isabel and Marii (both POA's). Family aware of mothers medical situation and poor prognosis. Benefits and burdens of feeding tube discussed at length. Daughters refusing PEG tube, in accordance of mother's AD wishes . Hospice services explained in detail. Questions answered. Daughters conflicted, state they are unable to stay home from their jobs in order to care for their mother. Daughter states that mother does not have the finances to pay for 24 hour aide or go to [place] facility. [facility] offered. Family declined,claim they do not have finances for this either. Family requesting to speak with SW regarding medicaid appli cation. Time spent with family in goals of care and advance care planning discussion, 45 minutes Plan: Goals of care and advance care planning Dysphagia.Tolerating liquids. Repeat speech and swallow exam, consider modified barium swallow Nutritional status: Currently receiving IV nutrition/and intralipids. Family does not want PEG tube. Sepsis/VRE of wound: Zyvox therapy completed. ID following. A Fib: Coumadin on hold, receiving Lovenox
--- NOTE | 2018-05-22 09:49 | CP.PCM.PN ---
Subjective - Date & Time of Evaluation Date of Evaluation: 05/22/18 Time of Evaluation: 09:43 - Subjective Subjective: Pt awake, responsive but lethargic still. Afebrile,VSS R knee: wound with no active bleeding or drainage no cellulitis no gross purulence dressing re applied plt 19 Hg 8.1 Had a lengthy discussion with patient's daughter Nina. Pt is not a surgical candidate due to poor nutritional status and thrombocytopenia. Daughter unders tands and agrees. She informed me that the family is considering comfort care. Meeting planned today with her and her sister as well as comfort care nurse. We will continue monitoring the wound for now. Prognosis poor. Objective - Vital Signs/Intake and Output Vital Signs (last 24 hours): Temp Pulse Resp BP Pulse Ox 97.4 F L 98 H 20 144/80 97 05/22/18 06:00 05/22/18 06:00 05/22/18 06:00 05/22/18 06:00 05/22/18 06:00 - Medications Medications: Current Medications Acetaminophen (Tylenol 325 Mg Supp) 325 mg RC Q6H PRN PRN Reason: Pain, moderate (4-7) Aspirin (Ecotrin) 81 mg PO DAILY [facility] Last Admin: 05/21/18 10:50 Dose: Not Given Atenolol (Tenormin) 25 mg PO BID [facility] Last Admin: 05/21/18 19:33 Dose: Not Given Digoxin (Lanoxin) 0.25 mg IVP 1400 [facility] Last Admin: 05/21/18 17:23 Dose: 0.25 mg Enoxaparin Sodium (Lovenox) 60 mg SC Q12H [facility]; Protocol Last Admin: 05/19/18 21:00 Dose: Not Given Multivitamins/Vitamin C 10 ml/Amino Acids/Electrolytes/Dextrose 2,010 mls @ 83 mls/hr IV .Q24H [facility] Stop: 05/24/18 11:16 Last Admin: 05/21/18 15:50 Dose: 83 mls/hr Fat Emulsion Intravenous (Intralipid 20%) 250 mls @ 21 mls/hr IV MWF@1115 [facility] Last Admin: 05/21/18 16:05 Dose: 21 mls/hr Mupirocin (Bactroban Ointment) 0 gm NS BID [facility] Stop: 05/23/18 10:01 Last Admin: 05/21/18 19:34 Dose: 1 applic Neomycin/Polymyxin/Bacitracin (Neosporin Triple Antibiotic Oint) 1 gm TOP DAILY [facility] Pantoprazole Sodium (Protonix Inj) 40 mg IVP DAILY [facility] Last Admin: 05/21/18 10:50 Dose: 40 mg Warfarin Sodium (Coumadin) 8 mg PO 1800 [facility] Last Admin: 05/19/18 17:10 Dose: Not Given - Labs Labs: 05/22/18 06:20 05/22/18 06:20 PT 12.1 SECONDS (9.4-12.5) 05/22/18 06:20 INR 1.05 05/22/18 06:20 APTT 35.2 Seconds (25.1-36.5) 05/16/18 19:12
[2018-05-22] MEDS: Bacitracin/Neomycin/Polymyxin Oint(30GM) TOP SCH (10:00)
[2018-05-22] MEDS: Mupirocin 2% Ointment 15 GM TUBE NS SCH ×2 (10:49→19:16)
[2018-05-22] MEDS: Digoxin 500 mcg/2ml (0.5 mg/2ml) Inj IVP SCH (14:19)
--- NOTE | 2018-05-22 17:36 | CP.PCM.PN ---
<Andrei Irvin - Last Filed: 05/22/18 17:31> Subjective - Date & Time of Evaluation Date of Evaluation: 05/22/18 Time of Evaluation: 09:00 - Subjective Subjective: PGY-1 Medicine Progress Note for Dr. Weiss Patient was seen and examined at bedside this AM. No acute overnight events reported. Tolerates sips of Sprite. Continues to be weak, asking for daughters at bedside. 12 point ROS otherwise negative. Patient's daugthers were spoken to at length about patient's hospital course and poor prognosis. At this time, they continue to refuse PEG feeding, per mother's wishes. Palliative care options were discussed with family and they were given time to make a decision together regarding plans going forward. All questions were answered and patient's family understood patient's prognosis. Objective - Vital Signs/Intake and Output Vital Signs (last 24 hours): Temp Pulse Resp BP Pulse Ox 97.9 F 95 H 20 121/74 94 L 05/22/18 14:00 05/22/18 14:00 05/22/18 14:00 05/22/18 14:00 05/22/18 14:00 - Medications Medications: Current Medications Acetaminophen (Tylenol 325 Mg Supp) 325 mg RC Q6H PRN PRN Reason: Pain, moderate (4-7) Aspirin (Ecotrin) 81 mg PO DAILY [facility] Last Admin: 05/22/18 10:49 Dose: Not Given Atenolol (Tenormin) 25 mg PO BID [facility] Last Admin: 05/22/18 10:49 Dose: Not Given Digoxin (Lanoxin) 0.25 mg IVP 1400 [facility] Last Admin: 05/22/18 14:19 Dose: 0.25 mg Enoxaparin Sodium (Lovenox) 60 mg SC Q12H [facility]; Protocol Last Admin: 05/19/18 21:00 Dose: Not Given Multivitamins/Vitamin C 10 ml/Amino Acids/Electrolytes/Dextrose 2,010 mls @ 83 mls/hr IV .Q24H [facility] Stop: 05/24/18 11:16 Last Admin: 05/22/18 12:29 Dose: 83 mls/hr Fat Emulsion Intravenous (Intralipid 20%) 250 mls @ 21 mls/hr IV MWF@1115 [facility] Last Admin: 05/21/18 16:05 Dose: 21 mls/hr Mupirocin (Bactroban Ointment) 0 gm NS BID [facility] Stop: 05/23/18 10:01 Last Admin: 05/22/18 10:49 Dose: 1 applic Neomycin/Polymyxin/Bacitracin (Neosporin Triple Antibiotic Oint) 1 gm TOP DAILY [facility] Pantoprazole Sodium (Protonix Inj) 40 mg IVP DAILY [facility] Last Admin: 05/22/18 10:49 Dose: 40 mg Warfarin Sodium (Coumadin) 8 mg PO 1800 [facility] Last Admin: 05/19/18 17:10 Dose: Not Given - Labs Labs: 05/22/18 06:20 05/22/18 06:20 PT 12.1 SECONDS (9.4-12.5) 05/22/18 06:20 INR 1.05 05/22/18 06:20 APTT 35.2 Seconds (25.1-36.5) 05/16/18 19:12 - Constitutional Appears: Non-toxic, Cachectic, Chronically Ill - Head Exam Head Exam: ATRAUMATIC, NORMAL INSPECTION, NORMOCEPHALIC - Eye Exam Eye Exam: EOMI, Normal appearance Pupil Exam: NORMAL ACCOMODATION - ENT Exam ENT Exam: Mucous Membranes Dry, Normal Exam - Neck Exam Neck Exam: Full ROM, Normal Inspection - Respiratory Exam Respiratory Exam: Clear to Ausculation Bilateral, NORMAL BREATHING PATTERN. absent: Accessory Muscle Use, Rales, Rhonchi, Wheezes, Respiratory Distress, Stridor - Cardiovascular Exam Cardiovascular Exam: REGULAR RHYTHM, +S1, +S2 - GI/Abdominal Exam GI & Abdominal Exam: Soft, Normal Bowel Sounds. absent: Distended, Firm, Guarding, Rigid, Tenderness, Organomegaly, Rebound - Extremities Exam Extremities Exam: Normal Capillary Refill. 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 Minimal purulent drainage noted. No malodor. Base is mixed necrotic,granular and fibrous 40:40:20. No probe to bone, no tracking or undermining. Periwound erythema and ecchymosis noted. Positive clinical signs of infection. Wound regressing as skin appears to darken in color periwound and down the leg. 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 Plan: Failure to thrive, dysphagia -c/w TPN today -Patient's family refusing PEG feeding at this time, per mother's wishes -Recent completion of 6 week course of Abx: zyvox and daptomycin discontinued -CT chest: no acute findings -CT head: no acute findings -EGD (04/2018): no esophageal pathology or signs of gastric outlet obstruction -GI recs appreciated -dysphagia likely multifactorial, 2/2 esophageal dysmotility, deconditioning -05/21 swallow eval: tolerate sips of water or sprite only -patient unable to tolerate modified barium swallow -Per neuro recs, no signs of NM disorder -Palliative recs appreciated: Jeannette LEVIN and I met with patients daughter's Isabel and Marii (both POA's). Family aware of mothers medical situation and poor prognosis. Benefits and burdens of feeding tube discussed at length. Daughters refusing PEG tube, in accordance of mother's AD wishes . Hospice services explained in detail. Questions answered. Daughters conflicted, state they are unable to stay home from their jobs in order to care for their mother. Daughter states that mother does not have the finances to pay for 24 hour aide or go to [place] facility. [facility] offered. Family declined,claim they do not have finances for this either. Family requesting to speak with regarding medicaid application. 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 Isela Irvin DO, PGY-1 <Gabbi Weiss - Last Filed: 06/02/18 12:40> Objective - Vital Signs/Intake and Output Vital Signs (last 24 hours): Temp Pulse Resp BP Pulse Ox 97.4 F L 75 20 135/70 98 06/02/18 06:00 06/02/18 10:32 06/02/18 06:00 06/02/18 10:32 06/02/18 06:00 Intake and Output: 06/02/18 06/02/18 06:59 18:59 Intake Total 960 Output Total 1100 Balance -140 - Medications Medications: Current Medications Acetaminophen (Tylenol 325mg Tab) 650 mg PO Q6H PRN PRN Reason: Pain, moderate (4-7) Last Admin: 05/30/18 16:19 Dose: 650 mg Alprazolam (Xanax) 0.5 mg PO DAILY [facility]; Protocol Apixaban (Eliquis) 2.5 mg PO BID [facility]; Protocol Last Admin: 06/02/18 10:33 Dose: Not Given Atenolol (Tenormin) 25 mg PO BID [facility] Last Admin: 06/02/18 10:32 Dose: 25 mg Atorvastatin Calcium (Lipitor) 20 mg PO DIN [facility] Last Admin: 06/01/18 17:31 Dose: 20 mg Digoxin (Lanoxin) 0.25 mg PO 1400 [facility] Last Admin: 06/01/18 13:31 Dose: Not Given Enoxaparin Sodium (Lovenox) 60 mg SC Q12H [facility]; Protocol Last Admin: 05/19/18 21:00 Dose: Not Given Mirtazapine (Remeron) 15 mg PO HS [facility] Last Admin: 06/01/18 21:33 Dose: Not Given Ondansetron HCl (Zofran Inj) 4 mg IVP Q6H PRN PRN Reason: Nausea/Vomiting Pantoprazole Sodium (Protonix Ec Tab) 40 mg PO 0600 [facility] Last Admin: 06/02/18 05:30 Dose: 40 mg - Labs Labs: 06/02/18 06:20 06/02/18 06:20 PT 16.7 SECONDS (9.4-12.5) H 05/31/18 07:00 INR 1.44 05/31/18 07:00 APTT 35.2 Seconds (25.1-36.5) 05/16/18 19:12 Attending/Attestation - Attestation I have personally seen and examined this patient.: Yes I have fully participated in the care of the patient.: Yes I have reviewed all pertinent clinical information, including history, physical exam and plan: Yes Notes (Text): 06/02/18 12:39 Medical record note made by the resident after discussion with my direction and input after the patient was personally seen and examined by me. I have reviewed the chart and agree that the record accurately reflects by personal performance of the history, physical exam, data review, and medical decision-making, in the course for the patient. I have also personally directed the plan of care. 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 Active treatment of intractable vomiting, failure to thrive, and unintentional weight loss. Prior EGD 04/2018 showed gastritis. Patient denies prior colonoscopy. Patient also has developed Pancytopenia due to bone marrow suppression due to Linezolid. She has Zyvox induced anion gap metabolic acidosis due to lactic acidosis which is improving. Patient is on PPN, has failed swallow evaluation, patient and family has refused PEG, Palliative care is on boarded .Hematology [place] is following for Pancytopenia. Patient is DNR/DNI. Prognosis is guarded. Management plan was discussed in detail with patient and patient daughters who were at bed side. Education was provided.
--- NOTE | 2018-05-23 00:49 | PN ---
DATE: 05/22/2018 SUBJECTIVE: The patient is in bed, in no acute distress, nontoxic. PHYSICAL EXAMINATION: VITAL SIGNS: Blood pressure is 120/70, respiratory rate of 20, and heart rate of 95. HEENT: Examination of HEENT is unremarkable. NECK: Supple. CARDIOPULMONARY: Normal S1, S2. LUNGS: Decreased breath sounds. ABDOMEN: Soft and nontender. LABORATORY DATA: Reveals a white count of 7.5. Chemistries are noted. The urinalysis is noted. Microbiology reveals Gram-negative sonido from the wound culture with few Gram-positive cocci. It is not clear if this is a deep wound culture. ASSESSMENT AND PLAN: Maru Li's consultation is reviewed and appreciated and hospice setting has been described. 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 We will hold off on Gram-negative coverage for now pending outcome of family decision with improvement of the patient's nutritional status. May consider adding meropenem pending identification of the Gram-negative sonido. We will follow with you. Dominick Simeon MD
[2018-05-23 06:43] LABS: BASO # 0.07 K/mm3 (0.0-2.0); BASO % 0.7 % (0.0-3.0); EOS # 0.3 (0.0-0.7); EOS % 2.6 % (1.5-5.0); GRAN # 5.38 (1.4-6.5); GRAN % 52.7 % (50.0-68.0); HEMOGLOBIN 8.4 g/dL (12.0-16.0); LYMPH % 29.5 % (22.0-35.0); MEAN CELL VOLUME 85.3 fl (80.0-105.0); MEAN CORPUSCULAR HEMOGLOBIN 28.1 pg (25.0-35.0); MEAN CORPUSCULAR HGB CONC 32.9 g/dl (31.0-37.0); MONO # 1.5 (0.1-0.6); MONO % 14.5 % (1.0-6.0); RBC 2.99 10^6/uL (3.5-6.1); RED CELL DISTRIBUTION WIDTH 17.1 % (11.5-14.5); WHITE BLOOD COUNT 10.2 10^3/uL (4.5-11.0)
[2018-05-23 06:55] LABS: PLATELET COUNT 36 10^3/uL (120.0-450.0)
[2018-05-23 07:15] LABS: INR 1.06; PROTHROMBIN TIME 12.2 SECONDS (9.4-12.5)
[2018-05-23 07:51] LABS: PLATELET COUNT MANUAL 41 K/mm3 (120-450)
[2018-05-23 08:16] LABS: ALBUMIN 2.7 g/dL (3.0-4.8); ALT/SGPT 20 U/L (7-56); AST/SGOT 25 U/L (14-36); BLOOD UREA NITROGEN 29 mg/dL (7-21); CALCIUM 8.7 mg/dL (8.4-10.5); GFR NON-AFRICAN AMERICAN > 60
--- NOTE | 2018-05-23 08:57 | CP.PCM.PN ---
<Giuseppe Freed - Last Filed: 05/23/18 12:27> Subjective - Date & Time of Evaluation Date of Evaluation: 05/23/18 Time of Evaluation: 08:52 - Subjective Subjective: Podiatry progress note for Dr. Philip 82 yo female seen and evaluated at bedside. More communicable this morning. Patient states that she is in pain at her right knee from the surgical site. No complaints of N/V today and denies CP/SOB. She is awake and actively engaging today, greater spirits this morning than in the past. Has no other pedal complaints. Is aware that [facility] is coming up next week. Objective - Vital Signs/Intake and Output Vital Signs (last 24 hours): Temp Pulse Resp BP Pulse Ox 98.2 F 78 18 114/53 L 97 05/23/18 06:00 05/23/18 06:00 05/23/18 06:00 05/23/18 06:00 05/23/18 06:00 Intake and Output: 05/23/18 05/23/18 06:59 18:59 Intake Total 420 Balance 420 - Medications Medications: Current Medications Acetaminophen (Tylenol 325 Mg Supp) 325 mg RC Q6H PRN PRN Reason: Pain, moderate (4-7) Aspirin (Ecotrin) 81 mg PO DAILY [facility] Last Admin: 05/22/18 10:49 Dose: Not Given Atenolol (Tenormin) 25 mg PO BID [facility] Last Admin: 05/22/18 19:17 Dose: Not Given Digoxin (Lanoxin) 0.25 mg IVP 1400 [facility] Last Admin: 05/22/18 14:19 Dose: 0.25 mg Enoxaparin Sodium (Lovenox) 60 mg SC Q12H [facility]; Protocol Last Admin: 05/19/18 21:00 Dose: Not Given Multivitamins/Vitamin C 10 ml/Amino Acids/Electrolytes/Dextrose 2,010 mls @ 83 mls/hr IV .Q24H [facility] Stop: 05/24/18 11:16 Last Admin: 05/22/18 12:29 Dose: 83 mls/hr Fat Emulsion Intravenous (Intralipid 20%) 250 mls @ 21 mls/hr IV MWF@1115 [facility] Last Admin: 05/21/18 16:05 Dose: 21 mls/hr Mupirocin (Bactroban Ointment) 0 gm NS BID [facility] Stop: 05/23/18 10:01 Last Admin: 05/22/18 19:16 Dose: 1 applic Neomycin/Polymyxin/Bacitracin (Neosporin Triple Antibiotic Oint) 1 gm TOP DAILY [facility] Last Admin: 05/22/18 10:00 Dose: Not Given Pantoprazole Sodium (Protonix Inj) 40 mg IVP DAILY [facility] Last Admin: 05/22/18 10:49 Dose: 40 mg Warfarin Sodium (Coumadin) 8 mg PO 1800 [facility] Last Admin: 05/19/18 17:10 Dose: Not Given - Labs Labs: 05/23/18 06:00 05/23/18 06:00 PT 12.2 SECONDS (9.4-12.5) 05/23/18 06:00 INR 1.06 05/23/18 06:00 APTT 35.2 Seconds (25.1-36.5) 05/16/18 19:12 - Constitutional Appears: Well, Non-toxic, No Acute Distress - Head Exam Head Exam: ATRAUMATIC, NORMOCEPHALIC - Extremities Exam Additional comments: R LE focused exam: Vasc: DP/PT faintly palpable. Cap refill< 3 sec to all digits. Temp gradient warm to cool. No edema. Multiple ecchymotic patches extends from the periwound area at the knee joint all the way down to the R ankle. Periwound erythema noted. Neuro: Gross and protective sensations are intact. Derm: An open wound measures [id number]. Minimal purulent drainage noted. No malodor. Base is mixed necrotic,granular and fibrous 40:40:20. No probe to bone, no tracking or undermining. Periwound erythema and ecchymosis noted. Positive clinical signs of infection. Wound regressing as skin appears to darken in color periwound and down the leg. MSK: Severe pain on palpating the periwound area. Muscle power around the knee joint couldn't be assessed due to pain and guarding. Passive and active ROM could be performed with guarding at the level of the R foot and ankle. - Neurological Exam Neurological Exam: Alert, Awake - Psychiatric Exam Psychiatric exam: Normal Affect, Normal Mood Assessment and Plan - Assessment and Plan (Free Text) Assessment: 82 yo female with infected right knee wound and osteomyelitis Plan: Patient seen and evaluated Discussed in detail with Dr. Philip Charts, labs and vitals reviewed; Afebrile, No leukocytosis Wound culture collected, ordered and sent to the lab - gram negative sonido Blood culture (05/16) Preliminary; No growth after 24 hours. Wound cleansed gently with sterile saline, bactroban, xeroform, ABD applied, ABD taped down as lifting leg is too painful for patient Patient refused multipodus boot for both feet, aware of possibility of pressure ulcer Right knee x-ray - prosthesis removed, cement spacer in place Focus on replenishing nutrition levels for patient Continue medical management per medicine and ID team Podiatry will continue to follow patient while in house. <Thai Philip - Last Filed: 05/23/18 19:04> Objective - Vital Signs/Intake and Output Vital Signs (last 24 hours): Temp Pulse Resp BP Pulse Ox 98.5 F 89 18 126/57 L 97 05/23/18 14:00 05/23/18 14:00 05/23/18 14:00 05/23/18 14:00 05/23/18 14:00 Intake and Output: 05/23/18 05/24/18 18:59 06:59 Intake Total 600 Balance 600 - Medications Medications: Current Medications Acetaminophen (Tylenol 325 Mg Supp) 325 mg RC Q6H PRN PRN Reason: Pain, moderate (4-7) Aspirin (Ecotrin) 81 mg PO DAILY [facility] Last Admin: 05/23/18 10:00 Dose: Not Given Atenolol (Tenormin) 25 mg PO BID [facility] Last Admin: 05/23/18 17:37 Dose: 25 mg Digoxin (Lanoxin) 0.25 mg IVP 1400 [facility] Last Admin: 05/23/18 13:54 Dose: 0.25 mg Enoxaparin Sodium (Lovenox) 60 mg SC Q12H [facility]; Protocol Last Admin: 05/19/18 21:00 Dose: Not Given Multivitamins/Vitamin C 10 ml/Amino Acids/Electrolytes/Dextrose 2,010 mls @ 83 mls/hr IV .Q24H [facility] Stop: 05/24/18 11:16 Last Admin: 05/23/18 12:09 Dose: 83 mls/hr Fat Emulsion Intravenous (Intralipid 20%) 250 mls @ 21 mls/hr IV MWF@1115 [facility] Last Admin: 05/23/18 12:09 Dose: 21 mls/hr Neomycin/Polymyxin/Bacitracin (Neosporin Triple Antibiotic Oint) 1 gm TOP DAILY [facility] Last Admin: 05/23/18 09:19 Dose: Not Given Pantoprazole Sodium (Protonix Inj) 40 mg IVP DAILY [facility] Last Admin: 05/23/18 09:18 Dose: 40 mg Warfarin Sodium (Coumadin) 8 mg PO 1800 [facility] Last Admin: 05/19/18 17:10 Dose: Not Given - Labs Labs: 05/23/18 06:00 05/23/18 06:00 PT 12.2 SECONDS (9.4-12.5) 05/23/18 06:00 INR 1.06 05/23/18 06:00 APTT 35.2 Seconds (25.1-36.5) 05/16/18 19:12 Attending/Attestation - Attestation I have personally seen and examined this patient.: Yes I have fully participated in the care of the patient.: Yes I have reviewed all pertinent clinical information, including history, physical exam and plan: Yes
[2018-05-23] MEDS: Mupirocin 2% Ointment 15 GM TUBE NS SCH (09:18)
[2018-05-23] MEDS: Bacitracin/Neomycin/Polymyxin Oint(30GM) TOP SCH (09:19)
--- NOTE | 2018-05-23 10:16 | CP.PCM.PN ---
<Sunni Rangel - Last Filed: 05/23/18 10:13> Subjective - Date & Time of Evaluation Date of Evaluation: 05/23/18 Time of Evaluation: 10:13 - Subjective Subjective: Gastroenterology Fellow/PGY6 Progress Note Patient notes she is thirsty and would like ensure to drink. Admits to improved strength and alertness. Denies abdominal pain. A 12-point review of systems negative except for as above. Objective - Vital Signs/Intake and Output Vital Signs (last 24 hours): Temp Pulse Resp BP Pulse Ox 98.2 F 78 18 114/53 L 97 05/23/18 06:00 05/23/18 06:00 05/23/18 06:00 05/23/18 06:00 05/23/18 06:00 Intake and Output: 05/23/18 05/23/18 06:59 18:59 Intake Total 420 Balance 420 - Medications Medications: Current Medications Acetaminophen (Tylenol 325 Mg Supp) 325 mg RC Q6H PRN PRN Reason: Pain, moderate (4-7) Aspirin (Ecotrin) 81 mg PO DAILY [facility] Last Admin: 05/22/18 10:49 Dose: Not Given Atenolol (Tenormin) 25 mg PO BID [facility] Last Admin: 05/23/18 09:19 Dose: Not Given Digoxin (Lanoxin) 0.25 mg IVP 1400 [facility] Last Admin: 05/22/18 14:19 Dose: 0.25 mg Enoxaparin Sodium (Lovenox) 60 mg SC Q12H [facility]; Protocol Last Admin: 05/19/18 21:00 Dose: Not Given Multivitamins/Vitamin C 10 ml/Amino Acids/Electrolytes/Dextrose 2,010 mls @ 83 mls/hr IV .Q24H [facility] Stop: 05/24/18 11:16 Last Admin: 05/22/18 12:29 Dose: 83 mls/hr Fat Emulsion Intravenous (Intralipid 20%) 250 mls @ 21 mls/hr IV MWF@1115 [facility] Last Admin: 05/21/18 16:05 Dose: 21 mls/hr Neomycin/Polymyxin/Bacitracin (Neosporin Triple Antibiotic Oint) 1 gm TOP DAILY [facility] Last Admin: 05/23/18 09:19 Dose: Not Given Pantoprazole Sodium (Protonix Inj) 40 mg IVP DAILY [facility] Last Admin: 05/23/18 09:18 Dose: 40 mg Warfarin Sodium (Coumadin) 8 mg PO 1800 [facility] Last Admin: 05/19/18 17:10 Dose: Not Given - Labs Labs: 05/23/18 06:00 05/23/18 06:00 PT 12.2 SECONDS (9.4-12.5) 05/23/18 06:00 INR 1.06 05/23/18 06:00 APTT 35.2 Seconds (25.1-36.5) 05/16/18 19:12 - Constitutional Appears: Non-toxic, No Acute Distress - Head Exam Head Exam: ATRAUMATIC, NORMOCEPHALIC - Eye Exam Eye Exam: EOMI, PERRL. absent: Scleral icterus Pupil Exam: PERRL. absent: Miosis, Mydriatic - ENT Exam ENT Exam: Mucous Membranes Moist, Normal Oropharynx - Neck Exam Neck Exam: Full ROM, Normal Inspection - Respiratory Exam Respiratory Exam: Clear to Ausculation Bilateral. absent: Rales, Rhonchi, Wheezes - Cardiovascular Exam Cardiovascular Exam: RRR, +S1, +S2. absent: Gallop, Rubs - GI/Abdominal Exam GI & Abdominal Exam: Soft, Normal Bowel Sounds. absent: Distended, Firm, Guarding, Rigid, Tenderness, Organomegaly, Rebound - Extremities Exam Extremities Exam: Normal Inspection. 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 Active treatment of intractable vomiting, failure to thrive, and unintentional weight loss. 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 nPrior EGD 04/2018 showed gastritis. No prior colonoscopy. Plan: -dysphagia, multifactorial - motility dysfunction, deconditioning -improved mentation and alertness -follow up repeat speech evaluation today -consider modified Barium swallow if able to tolerated today -neurology recommendation- no signs of neuromuscular disorder -on TPN -will follow clinical course <Howard Olguin V - Last Filed: 05/23/18 23:29> Objective - Vital Signs/Intake and Output Vital Signs (last 24 hours): Temp Pulse Resp BP Pulse Ox 98.4 F 80 16 109/61 95 05/23/18 22:00 05/23/18 22:00 05/23/18 22:00 05/23/18 22:00 05/23/18 22:00 Intake and Output: 05/23/18 05/24/18 18:59 06:59 Intake Total 600 Balance 600 - Medications Medications: Current Medications Acetaminophen (Tylenol 325 Mg Supp) 325 mg RC Q6H PRN PRN Reason: Pain, moderate (4-7) Aspirin (Ecotrin) 81 mg PO DAILY [facility] Last Admin: 05/23/18 10:00 Dose: Not Given Atenolol (Tenormin) 25 mg PO BID [facility] Last Admin: 05/23/18 17:37 Dose: 25 mg Digoxin (Lanoxin) 0.25 mg IVP 1400 [facility] Last Admin: 05/23/18 13:54 Dose: 0.25 mg Enoxaparin Sodium (Lovenox) 60 mg SC Q12H [facility]; Protocol Last Admin: 05/19/18 21:00 Dose: Not Given Multivitamins/Vitamin C 10 ml/Amino Acids/Electrolytes/Dextrose 2,010 mls @ 83 mls/hr IV .Q24H [facility] Stop: 05/24/18 11:16 Last Admin: 05/23/18 12:09 Dose: 83 mls/hr Fat Emulsion Intravenous (Intralipid 20%) 250 mls @ 21 mls/hr IV MWF@1115 [facility] Last Admin: 05/23/18 12:09 Dose: 21 mls/hr Neomycin/Polymyxin/Bacitracin (Neosporin Triple Antibiotic Oint) 1 gm TOP DAILY [facility] Last Admin: 05/23/18 09:19 Dose: Not Given Pantoprazole Sodium (Protonix Inj) 40 mg IVP DAILY [facility] Last Admin: 05/23/18 09:18 Dose: 40 mg Warfarin Sodium (Coumadin) 8 mg PO 1800 [facility] Last Admin: 05/19/18 17:10 Dose: Not Given - Labs Labs: 05/23/18 06:00 05/23/18 06:00 PT 12.2 SECONDS (9.4-12.5) 05/23/18 06:00 INR 1.06 05/23/18 06:00 APTT 35.2 Seconds (25.1-36.5) 05/16/18 19:12 Attending/Attestation - Attestation I have personally seen and examined this patient.: Yes I have fully participated in the care of the patient.: Yes I have reviewed all pertinent clinical information, including history, physical exam and plan: Yes Notes (Text): This is an addendum to GI progress report dictated by the GI Fellow.The patient was seen and examined earlier. Medical records, lab studies, imagings were reviewed. Last 24 hours events reviewed. Agreed with the above treatment plan as outlined in GI Fellow 's notes with the addition of the following More alert As per speech therapy Repeat swallowing evaluation noted Puree diet with assistance 05/23/18 23:24
--- NOTE | 2018-05-23 10:21 | CP.PCM.PN ---
Subjective - Date & Time of Evaluation Date of Evaluation: 05/23/18 Time of Evaluation: 10:21 - Subjective Subjective: Pt awake. Much more alert today. Afebrile R knee:dressing changed this morning by wound care service Platelets 36 WBC 10.2 (increased from yesterday) Hg 8.4 (stable) Incision with some necrotic edges; small amount of drainage on bandage Continue current care Monitor wbc count Repeat esr,crp antibiotics as per ID awaiting family's disposition for comfort/hospice care Objective - Vital Signs/Intake and Output Vital Signs (last 24 hours): Temp Pulse Resp BP Pulse Ox 98.2 F 78 18 114/53 L 97 05/23/18 06:00 05/23/18 06:00 05/23/18 06:00 05/23/18 06:00 05/23/18 06:00 Intake and Output: 05/23/18 05/23/18 06:59 18:59 Intake Total 420 Balance 420 - Medications Medications: Current Medications Acetaminophen (Tylenol 325 Mg Supp) 325 mg RC Q6H PRN PRN Reason: Pain, moderate (4-7) Aspirin (Ecotrin) 81 mg PO DAILY [facility] Last Admin: 05/22/18 10:49 Dose: Not Given Atenolol (Tenormin) 25 mg PO BID [facility] Last Admin: 05/23/18 09:19 Dose: Not Given Digoxin (Lanoxin) 0.25 mg IVP 1400 [facility] Last Admin: 05/22/18 14:19 Dose: 0.25 mg Enoxaparin Sodium (Lovenox) 60 mg SC Q12H [facility]; Protocol Last Admin: 05/19/18 21:00 Dose: Not Given Multivitamins/Vitamin C 10 ml/Amino Acids/Electrolytes/Dextrose 2,010 mls @ 83 mls/hr IV .Q24H [facility] Stop: 05/24/18 11:16 Last Admin: 05/22/18 12:29 Dose: 83 mls/hr Fat Emulsion Intravenous (Intralipid 20%) 250 mls @ 21 mls/hr IV MWF@1115 [facility] Last Admin: 05/21/18 16:05 Dose: 21 mls/hr Neomycin/Polymyxin/Bacitracin (Neosporin Triple Antibiotic Oint) 1 gm TOP DAILY [facility] Last Admin: 05/23/18 09:19 Dose: Not Given Pantoprazole Sodium (Protonix Inj) 40 mg IVP DAILY [facility] Last Admin: 05/23/18 09:18 Dose: 40 mg Warfarin Sodium (Coumadin) 8 mg PO 1800 [facility] Last Admin: 05/19/18 17:10 Dose: Not Given - Labs Labs: 05/23/18 06:00 05/23/18 06:00 PT 12.2 SECONDS (9.4-12.5) 05/23/18 06:00 INR 1.06 05/23/18 06:00 APTT 35.2 Seconds (25.1-36.5) 05/16/18 19:12
--- NOTE | 2018-05-23 10:51 | CP.PCM.PN ---
Subjective - Date & Time of Evaluation Date of Evaluation: 05/23/18 Time of Evaluation: 08:15 - Subjective Subjective: Patient is much more awake today but still feels weak, more alert today, no fevers, wants to drink but patient is NPO. Objective - Vital Signs/Intake and Output Vital Signs (last 24 hours): Temp Pulse Resp BP Pulse Ox 97.9 F 90 18 132/78 98 05/21/18 06:00 05/21/18 06:00 05/21/18 06:00 05/21/18 06:00 05/21/18 06:00 Intake and Output: 05/21/18 05/21/18 06:59 18:59 Intake Total 1991 Balance 1991 - Medications Medications: Current Medications Aspirin (Ecotrin) 81 mg PO DAILY [facility] Last Admin: 05/20/18 09:16 Dose: Not Given Atenolol (Tenormin) 25 mg PO BID [facility] Last Admin: 05/20/18 17:02 Dose: Not Given Digoxin (Digoxin) 0.125 mg PO DAILY [facility] Last Admin: 05/20/18 09:16 Dose: Not Given Digoxin (Lanoxin) 0.25 mg IVP 1400 [facility] Enoxaparin Sodium (Lovenox) 60 mg SC Q12H [facility]; Protocol Last Admin: 05/19/18 21:00 Dose: Not Given Multivitamins/Vitamin C 10 ml/Amino Acids/Electrolytes/Dextrose 2,010 mls @ 83 mls/hr IV .Q24H [facility] Stop: 05/24/18 11:16 Fat Emulsion Intravenous (Intralipid 20%) 250 mls @ 21 mls/hr IV MWF@1115 [facility] Mupirocin (Bactroban Ointment) 0 gm NS BID [facility] Stop: 05/23/18 10:01 Last Admin: 05/20/18 17:01 Dose: 1 applic Pantoprazole Sodium (Protonix Inj) 40 mg IVP DAILY [facility] Last Admin: 05/20/18 11:17 Dose: 40 mg Warfarin Sodium (Coumadin) 8 mg PO 1800 [facility] Last Admin: 05/19/18 17:10 Dose: Not Given - Labs Labs: 05/21/18 06:45 05/21/18 06:45 PT 11.2 SECONDS (9.4-12.5) 05/21/18 06:45 INR 0.97 05/21/18 06:45 APTT 35.2 Seconds (25.1-36.5) 05/16/18 19:12 - Constitutional Appears: Cachectic, Chronically Ill - Head Exam Head Exam: NORMAL INSPECTION - ENT Exam ENT Exam: Mucous Membranes Moist - Respiratory Exam Respiratory Exam: Decreased Breath Sounds - Cardiovascular Exam Cardiovascular Exam: +S1, +S2 - GI/Abdominal Exam GI & Abdominal Exam: Soft. 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 Hernandez previously, she already has had 6 weeks of antibiotics (since 04/08/2018) and there is concern about the thrombocytopenia, nausea and vomiting - the thrombocytopenia is probably multifactorial (including meds such as Zyvox and chronic illness - we are continuing to monitor platelet count and Hematology is on-board, patient also has low Hgb and there may be myelosuppression) - discussed this also with Dr. Watson and we will monitor the CRP - the CRP is still elevated but because the patient is ill, the CRP is not an accurate assessment of the inflammation in the knee - will get another CRP - superficial wound cultures growing Pantoea which is very sensitive to many antibiotics - we are currently giving Bactroban, Polymixin and Bacitracin ointment topically for the wound and the patient is getting local wound care - will discuss with Podiatry if the wound is improving - will continue to monitor WBC count and vital signs and currently the patient does not have leukocytosis or fevers (i.e. no signs of systemic infection) lactic acid levels are starting to trend downward, patient continued on IV fluids and parenteral nutrition - patient needs nutrition so that her right knee is to heal properly there is discussion whether to put patient on palliative care and we are awaiting the results of the discussion between the family and Garima Cobos will continue to monitor clinically overall prognosis is poor
[2018-05-23] MEDS: Fat Emulsion 20% IV 250 ML IV SCH (12:09)
--- NOTE | 2018-05-23 13:28 | CP.PCM.PN ---
<Andrei Irvin - Last Filed: 05/23/18 17:08> Subjective - Date & Time of Evaluation Date of Evaluation: 05/23/18 Time of Evaluation: 08:00 - Subjective Subjective: PGY-1 Medicine Progress Note for Dr. Hernandez Patient seen and examined at bedside, resting comfortably and in no acute distress. Patient much more alert today, asking to drink ensure and asking for food. Denies abdominal pain. 12 point ROS otherwise negative. Objective - Vital Signs/Intake and Output Vital Signs (last 24 hours): Temp Pulse Resp BP Pulse Ox 98.2 F 78 18 114/53 L 97 05/23/18 06:00 05/23/18 06:00 05/23/18 06:00 05/23/18 06:00 05/23/18 06:00 Intake and Output: 05/23/18 05/23/18 06:59 18:59 Intake Total 420 600 Balance 420 600 - Medications Medications: Current Medications Acetaminophen (Tylenol 325 Mg Supp) 325 mg RC Q6H PRN PRN Reason: Pain, moderate (4-7) Aspirin (Ecotrin) 81 mg PO DAILY [facility] Last Admin: 05/22/18 10:49 Dose: Not Given Atenolol (Tenormin) 25 mg PO BID [facility] Last Admin: 05/23/18 09:19 Dose: Not Given Digoxin (Lanoxin) 0.25 mg IVP 1400 [facility] Last Admin: 05/22/18 14:19 Dose: 0.25 mg Enoxaparin Sodium (Lovenox) 60 mg SC Q12H [facility]; Protocol Last Admin: 05/19/18 21:00 Dose: Not Given Multivitamins/Vitamin C 10 ml/Amino Acids/Electrolytes/Dextrose 2,010 mls @ 83 mls/hr IV .Q24H [facility] Stop: 05/24/18 11:16 Last Admin: 05/23/18 12:09 Dose: 83 mls/hr Fat Emulsion Intravenous (Intralipid 20%) 250 mls @ 21 mls/hr IV MWF@1115 [facility] Last Admin: 05/23/18 12:09 Dose: 21 mls/hr Neomycin/Polymyxin/Bacitracin (Neosporin Triple Antibiotic Oint) 1 gm TOP DAILY [facility] Last Admin: 05/23/18 09:19 Dose: Not Given Pantoprazole Sodium (Protonix Inj) 40 mg IVP DAILY [facility] Last Admin: 05/23/18 09:18 Dose: 40 mg Warfarin Sodium (Coumadin) 8 mg PO 1800 [facility] Last Admin: 05/19/18 17:10 Dose: Not Given - Labs Labs: 05/23/18 06:00 05/23/18 06:00 PT 12.2 SECONDS (9.4-12.5) 05/23/18 06:00 INR 1.06 05/23/18 06:00 APTT 35.2 Seconds (25.1-36.5) 05/16/18 19:12 - Constitutional Appears: No Acute Distress, Cachectic, Chronically Ill - Head Exam Head Exam: ATRAUMATIC, NORMAL INSPECTION, NORMOCEPHALIC - Eye Exam Eye Exam: EOMI, Normal appearance Pupil Exam: NORMAL ACCOMODATION - ENT Exam ENT Exam: Mucous Membranes Moist, Normal Exam - Neck Exam Neck Exam: Full ROM, Normal Inspection - Respiratory Exam Respiratory Exam: Clear to Ausculation Bilateral, NORMAL BREATHING PATTERN. absent: Accessory Muscle Use, Rales, Rhonchi, Wheezes, Respiratory Distress, Stridor - Cardiovascular Exam Cardiovascular Exam: REGULAR RHYTHM, +S1, +S2 - GI/Abdominal Exam GI & Abdominal Exam: Soft, Normal Bowel Sounds. 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 Plan: Failure to thrive, dysphagia -c/w TPN today -Patient's family refusing PEG feeding at this time, per mother's wishes -Recent completion of 6 week course of Abx: zyvox and daptomycin discontinued -CT chest: no acute findings -CT head: no acute findings -EGD (04/2018): no esophageal pathology or signs of gastric outlet obstruction -repeat speech/swallow eval (05/23) -[employer] recommends trial puree consistency diet with extra gravy and thin liquids -aspiration/reflux precautions -continue TPN until Pt. demonstrates a good percentage of intake with p.o. meals -GI recs appreciated -dysphagia, multifactorial - motility dysfunction, deconditioning -improved mentation and alertness -follow up repeat speech evaluation today -consider modified Barium swallow if able to tolerated today -neurology recommendation- no signs of neuromuscular disorder -on TPN -will follow clinical course -Per neuro recs, no signs of NM disorder -Palliative recs appreciated: Jeannette LEVIN and I met with patients daughter's Isabel and Marii (both POA's). Family aware of mothers medical situation and poor prognosis. Benefits and burdens of feeding tube discussed at length. Daughters refusing PEG tube, in accordance of mother's AD wishes . Hospice services explained in detail. Questions answered. Daughters conflicted, state they are unable to stay home from their jobs in order to care for their mother. Daughter states that mother does not have the finances to pay for 24 hour aide or go to [place] facility. [facility] offered. Family declined,claim they do not have finances for this either. Family requesting to speak with regarding medicaid application. Pancytopenia -PLT 36, manual count of 41 -pt s/p 1 unit prbc, given a dose of erythropoietin -Heme/Onc recs appreciated -suspect medication induced thrombocytopenia; zyvox can cause cytopenias -zyvox dc'd -agree with holding antiplatelet and coumadin for now; okay to restart when PLT > 50K -of note pt will have plt dyfunction from uremia -hyperproliferative erythroid response -anemia of chronic disease -iron, b12, folate wnl R TKA complicated by VRE with prosthesis removal; wound cx: pantoea -ID recs (Dr. Mi) appreciated -discussed with ortho and we will monitor CRP: still elevated but because the pt is ill, the CRP is not an accurate assessment of the knee inflammation -will get another CRP -superficial wound cx: pantoea sensitive to many abc: giving bactroban, polymixin, bacitracin ointment -c/w local wound care Atrial fibrillation - Digoxin 0.125 - Atenolol 25 mg PO daily - Coumadin held due to coagulopathy CAD - aspirin currently being held due to low platelets PPx, Diet, Dispostion -DVT ppx: lovenox on hold -Diet: pureed, thin liquid, extra gravy -Dispo: Palliative care on board, to discuss plans with family going forward Case discussed with Dr. David Irvin DO, PGY-1 <Jay Hernandez - Last Filed: 05/24/18 07:13> Objective - Vital Signs/Intake and Output Vital Signs (last 24 hours): Temp Pulse Resp BP Pulse Ox 98.4 F 80 16 109/61 95 05/23/18 22:00 05/23/18 22:00 05/23/18 22:00 05/23/18 22:00 05/23/18 22:00 Intake and Output: 05/24/18 05/24/18 06:59 18:59 Intake Total 360 Balance 360 - Medications Medications: Current Medications Acetaminophen (Tylenol 325 Mg Supp) 325 mg RC Q6H PRN PRN Reason: Pain, moderate (4-7) Aspirin (Ecotrin) 81 mg PO DAILY [facility] Last Admin: 05/23/18 10:00 Dose: Not Given Atenolol (Tenormin) 25 mg PO BID [facility] Last Admin: 05/23/18 17:37 Dose: 25 mg Digoxin (Lanoxin) 0.25 mg IVP 1400 [facility] Last Admin: 05/23/18 13:54 Dose: 0.25 mg Enoxaparin Sodium (Lovenox) 60 mg SC Q12H [facility]; Protocol Last Admin: 05/19/18 21:00 Dose: Not Given Multivitamins/Vitamin C 10 ml/Amino Acids/Electrolytes/Dextrose 2,010 mls @ 83 mls/hr IV .Q24H [facility] Stop: 05/24/18 11:16 Last Admin: 05/23/18 12:09 Dose: 83 mls/hr Fat Emulsion Intravenous (Intralipid 20%) 250 mls @ 21 mls/hr IV MWF@1115 [facility] Last Admin: 05/23/18 12:09 Dose: 21 mls/hr Neomycin/Polymyxin/Bacitracin (Neosporin Triple Antibiotic Oint) 1 gm TOP DAILY [facility] Last Admin: 05/23/18 09:19 Dose: Not Given Pantoprazole Sodium (Protonix Inj) 40 mg IVP DAILY [facility] Last Admin: 05/23/18 09:18 Dose: 40 mg Warfarin Sodium (Coumadin) 8 mg PO 1800 [facility] Last Admin: 05/19/18 17:10 Dose: Not Given - Labs Labs: 05/23/18 06:00 05/23/18 06:00 PT 12.2 SECONDS (9.4-12.5) 05/23/18 06:00 INR 1.06 05/23/18 06:00 APTT 35.2 Seconds (25.1-36.5) 05/16/18 19:12 Attending/Attestation - Attestation I have personally seen and examined this patient.: Yes I have fully participated in the care of the patient.: Yes I have reviewed all pertinent clinical information, including history, physical exam and plan: Yes Notes (Text): 05/23/18 82 year old female with past medical history of afib on coumadin (on hold), CAD, hypertension, right TKA, complicated by VRE with prosthesis removal who presented with intractable vomiting and failure to thrive. She is on TPN. Family has been refusing PEG tube place as per mother's wishes. Speech/swallow follow up was appreciated who recommended trial of purree consistency diet with thin liquids. ID and orthopedics are following as well. Patient has completed 6 week course of antibiotics. Continue to monitor pancytopenia closely. Heme is following. Palliative care evaluation was appreciated as well. Daughter is at bedside and questions were answered. Jay Hernandez MD Hospitalist.
[2018-05-23] MEDS: Digoxin 500 mcg/2ml (0.5 mg/2ml) Inj IVP SCH (13:54)
--- NOTE | 2018-05-23 23:02 | CP.PCM.PN ---
Subjective - Date & Time of Evaluation Date of Evaluation: 05/23/18 Time of Evaluation: 14:00 - Subjective Subjective: More alert Objective - Vital Signs/Intake and Output Vital Signs (last 24 hours): Temp Pulse Resp BP Pulse Ox 98.4 F 80 16 109/61 95 05/23/18 22:00 05/23/18 22:00 05/23/18 22:00 05/23/18 22:00 05/23/18 22:00 Intake and Output: 05/23/18 05/24/18 18:59 06:59 Intake Total 600 Balance 600 - Medications Medications: Current Medications Acetaminophen (Tylenol 325 Mg Supp) 325 mg RC Q6H PRN PRN Reason: Pain, moderate (4-7) Aspirin (Ecotrin) 81 mg PO DAILY [facility] Last Admin: 05/23/18 10:00 Dose: Not Given Atenolol (Tenormin) 25 mg PO BID [facility] Last Admin: 05/23/18 17:37 Dose: 25 mg Digoxin (Lanoxin) 0.25 mg IVP 1400 [facility] Last Admin: 05/23/18 13:54 Dose: 0.25 mg Enoxaparin Sodium (Lovenox) 60 mg SC Q12H [facility]; Protocol Last Admin: 05/19/18 21:00 Dose: Not Given Multivitamins/Vitamin C 10 ml/Amino Acids/Electrolytes/Dextrose 2,010 mls @ 83 mls/hr IV .Q24H [facility] Stop: 05/24/18 11:16 Last Admin: 05/23/18 12:09 Dose: 83 mls/hr Fat Emulsion Intravenous (Intralipid 20%) 250 mls @ 21 mls/hr IV MWF@1115 [facility] Last Admin: 05/23/18 12:09 Dose: 21 mls/hr Neomycin/Polymyxin/Bacitracin (Neosporin Triple Antibiotic Oint) 1 gm TOP DAILY [facility] Last Admin: 05/23/18 09:19 Dose: Not Given Pantoprazole Sodium (Protonix Inj) 40 mg IVP DAILY [facility] Last Admin: 05/23/18 09:18 Dose: 40 mg Warfarin Sodium (Coumadin) 8 mg PO 1800 [facility] Last Admin: 05/19/18 17:10 Dose: Not Given - Labs Labs: 05/23/18 06:00 05/23/18 06:00 PT 12.2 SECONDS (9.4-12.5) 05/23/18 06:00 INR 1.06 05/23/18 06:00 APTT 35.2 Seconds (25.1-36.5) 05/16/18 19:12 - Head Exam Head Exam: ATRAUMATIC - Eye Exam Eye Exam: Normal appearance - ENT Exam ENT Exam: Mucous Membranes Dry - Respiratory Exam Respiratory Exam: NORMAL BREATHING PATTERN - Cardiovascular Exam Cardiovascular Exam: +S1, +S2 - GI/Abdominal Exam GI & Abdominal Exam: Normal Bowel Sounds Assessment and Plan (1) Thrombocytopenia Assessment & Plan: improving suspect medication induced; Zyvox can cause cytopenias Zyvox has been discontinued agree with holding antiplatelet and coumadin for now; okay to restart when plt > 50,000 of note, pt will have plt dysfunction from uremia improving fibrinogen; no active infection to suggest DIC - ? stunned liver function Status: Acute (2) Anemia Assessment & Plan: hypoproliferative erythroid response anemia of chronic disease no iron/b12/folate deficiency given a dose of erythropoietin s/p PRBC transfusion Status: Acute (3) Coagulopathy Assessment & Plan: nutritional low fibrinogen but improved ? stunned synthetic function of liver Status: Acute
[2018-05-24 07:22] LABS: INR 1.14; PROTHROMBIN TIME 13.1 SECONDS (9.4-12.5)
--- NOTE | 2018-05-24 07:33 | CP.PCM.PN ---
<Andrei Irvin - Last Filed: 05/24/18 15:38> Subjective - Date & Time of Evaluation Date of Evaluation: 05/24/18 Time of Evaluation: 07:32 - Subjective Subjective: PGY-1 Medicine Progress Note for Dr. Hernandez's service Patient seen and examined at bedside this AM, resting comfortably and eating breakfast. No acute overnight events report. Patient much more alert, clinically improving. Expresses wishes to go home for Thanksgiving. 12 pt ROS unchanged at this time. Objective - Vital Signs/Intake and Output Vital Signs (last 24 hours): Temp Pulse Resp BP Pulse Ox 98.4 F 80 16 109/61 95 05/23/18 22:00 05/23/18 22:00 05/23/18 22:00 05/23/18 22:00 05/23/18 22:00 Intake and Output: 05/24/18 05/24/18 06:59 18:59 Intake Total 360 Balance 360 - Medications Medications: Current Medications Acetaminophen (Tylenol 325 Mg Supp) 325 mg RC Q6H PRN PRN Reason: Pain, moderate (4-7) Aspirin (Ecotrin) 81 mg PO DAILY [facility] Last Admin: 05/23/18 10:00 Dose: Not Given Atenolol (Tenormin) 25 mg PO BID [facility] Last Admin: 05/23/18 17:37 Dose: 25 mg Digoxin (Lanoxin) 0.25 mg IVP 1400 [facility] Last Admin: 05/23/18 13:54 Dose: 0.25 mg Enoxaparin Sodium (Lovenox) 60 mg SC Q12H [facility]; Protocol Last Admin: 05/19/18 21:00 Dose: Not Given Multivitamins/Vitamin C 10 ml/Amino Acids/Electrolytes/Dextrose 2,010 mls @ 83 mls/hr IV .Q24H [facility] Stop: 05/24/18 11:16 Last Admin: 05/23/18 12:09 Dose: 83 mls/hr Fat Emulsion Intravenous (Intralipid 20%) 250 mls @ 21 mls/hr IV MWF@1115 [facility] Last Admin: 05/23/18 12:09 Dose: 21 mls/hr Neomycin/Polymyxin/Bacitracin (Neosporin Triple Antibiotic Oint) 1 gm TOP DAILY [facility] Last Admin: 05/23/18 09:19 Dose: Not Given Pantoprazole Sodium (Protonix Inj) 40 mg IVP DAILY [facility] Last Admin: 05/23/18 09:18 Dose: 40 mg Warfarin Sodium (Coumadin) 8 mg PO 1800 [facility] Last Admin: 05/19/18 17:10 Dose: Not Given - Labs Labs: 05/23/18 06:00 05/23/18 06:00 PT 13.1 SECONDS (9.4-12.5) H 05/24/18 06:00 INR 1.14 05/24/18 06:00 APTT 35.2 Seconds (25.1-36.5) 05/16/18 19:12 - Constitutional Appears: Non-toxic, No Acute Distress - Head Exam Head Exam: ATRAUMATIC, NORMAL INSPECTION, NORMOCEPHALIC - Eye Exam Eye Exam: EOMI, Normal appearance Pupil Exam: NORMAL ACCOMODATION - ENT Exam ENT Exam: Mucous Membranes Moist, Normal Exam - Neck Exam Neck Exam: Full ROM, Normal Inspection - Respiratory Exam Respiratory Exam: Clear to Ausculation Bilateral, NORMAL BREATHING PATTERN. absent: Accessory Muscle Use, Rales, Rhonchi, Wheezes, Respiratory Distress, Stridor - Cardiovascular Exam Cardiovascular Exam: REGULAR RHYTHM, +S1, +S2 - GI/Abdominal Exam GI & Abdominal Exam: Soft, Normal Bowel Sounds. 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 Plan: Failure to thrive, dysphagia -c/w TPN today until pt has adequate PO intake -Patient's family refusing PEG feeding at this time, per mother's wishes -Recent completion of 6 week course of Abx: zyvox and daptomycin discontinued -CT chest: no acute findings -CT head: no acute findings -EGD (04/2018): no esophageal pathology or signs of gastric outlet obstruction -repeat speech/swallow eval (05/23) -[employer] recommends trial puree consistency diet with extra gravy and thin liquid s -aspiration/reflux precautions -continue TPN until Pt. demonstrates a good percentage of intake with p.o. meals -GI recs appreciated -dysphagia, multifactorial - motility dysfunction, deconditioning -improved mentation and alertness -repeat speech evaluation recommends puree consistency, thin liquids -pt tolerating diet with no issues per nursing -neurology recommendation- no signs of neuromuscular disorder -on TPN, recommend to taper off TPN as po intake increases -Please call with any questions or concerns -Neuro recs appreciated - no signs of NM disorder -Palliative recs appreciated Jeannette LEVIN and I met with patients daughter's Isabel and Marii (both POA's). Family aware of mothers medical situation and poor prognosis. Benefits and burdens of feeding tube discussed at length. Daughters refusing PEG tube, in accordance of mother's AD wishes . Hospice services explained in detail. Questions answered. Daughters conflicted, state they are unable to stay home from their jobs in order to care for their mother. Daughter states that mother does not have the finances to pay for 24 hour aide or go to [place] facility. [facility] offered. Family declined,claim they do not have finances for this either. Family requesting to speak with regarding medicaid application. 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 Mi) appreciated -discussed with ortho and we will monitor CRP: still elevated but because the pt is ill, the CRP is not an accurate assessment of the knee inflammation -will get another CRP -superficial wound cx: pantoea sensitive to many abc: giving bactroban, polymixin, bacitracin ointment -c/w local wound care Atrial fibrillation - Digoxin 0.8 - Atenolol 25 mg PO daily - Coumadin held due to coagulopathy CAD - aspirin currently being held due to low platelets PPx, Diet, Dispostion -DVT ppx: lovenox on hold -Diet: pureed, thin liquid, extra gravy -Dispo: patient clinically improving, tolerating po intake. Begin taper of TPN as PO intake increases. Hold ASA, coumadin for one more day, f/u heme/onc for possibly continuing tomorrow Case discussed with Dr. David Irvin DO, PGY-1 <Jay Hernandez - Last Filed: 05/24/18 15:54> Objective - Vital Signs/Intake and Output Vital Signs (last 24 hours): Temp Pulse Resp BP Pulse Ox 98.1 F 93 H 18 129/63 98 05/24/18 14:35 05/24/18 14:35 05/24/18 14:35 05/24/18 14:35 05/24/18 14:35 Intake and Output: 05/24/18 05/24/18 06:59 18:59 Intake Total 360 Balance 360 - Medications Medications: Current Medications Acetaminophen (Tylenol 325 Mg Supp) 325 mg RC Q6H PRN PRN Reason: Pain, moderate (4-7) Aspirin (Ecotrin) 81 mg PO DAILY [facility] Last Admin: 05/24/18 10:17 Dose: Not Given Atenolol (Tenormin) 25 mg PO BID [facility] Last Admin: 05/24/18 09:59 Dose: Not Given Digoxin (Lanoxin) 0.25 mg PO 1400 [facility] Enoxaparin Sodium (Lovenox) 60 mg SC Q12H [facility]; Protocol Last Admin: 05/19/18 21:00 Dose: Not Given Multivitamins/Vitamin C 10 ml/Amino Acids/Electrolytes/Dextrose 2,010 mls @ 83 mls/hr IV .Q24H [facility] Stop: 05/27/18 11:16 Fat Emulsion Intravenous (Intralipid 20%) 250 mls @ 21 mls/hr IV MWF@1115 [facility] Neomycin/Polymyxin/Bacitracin (Neosporin Triple Antibiotic Oint) 1 gm TOP DAILY [facility] Last Admin: 05/24/18 09:51 Dose: Not Given Pantoprazole Sodium (Protonix Inj) 40 mg IVP DAILY [facility] Last Admin: 05/24/18 09:50 Dose: 40 mg Warfarin Sodium (Coumadin) 8 mg PO 1800 [facility] Last Admin: 05/19/18 17:10 Dose: Not Given - Labs Labs: 05/24/18 06:00 05/24/18 06:00 PT 13.1 SECONDS (9.4-12.5) H 05/24/18 06:00 INR 1.14 05/24/18 06:00 APTT 35.2 Seconds (25.1-36.5) 05/16/18 19:12 Attending/Attestation - Attestation I have personally seen and examined this patient.: Yes I have fully participated in the care of the patient.: Yes I have reviewed all pertinent clinical information, including history, physical exam and plan: Yes Notes (Text): 05/24/18 15:52 82 year old female with past medical history of afib on coumadin (on hold), CAD, hypertension, right TKA, complicated by VRE with prosthesis removal who presented with intractable vomiting and failure to thrive. She was started on TPN. Family has been refusing PEG tube place as per mother's wishes. Speech/swallow follow up was appreciated who recommended trial of purree consistency diet with thin liquids. ID and orthopedics are following as well. Patient has completed 6 week course of antibiotics. Wound culture is growing Pantoea species; will discuss culture findings with ID and podiatry. Continue to monitor pancytopenia closely. Heme is following. Her aspirin and coumadin are on hold for now due to anemia/thrombocytopenia. Consider to resume per hematology if numbers increase. Palliative care evaluation was appreciated as well. Jay Hernandez MD Hospitalist.
[2018-05-24 07:36] LABS: BASO # 0.04 K/mm3 (0.0-2.0); BASO % 0.4 % (0.0-3.0); EOS # 0.4 (0.0-0.7); EOS % 3.8 % (1.5-5.0); GRAN # 6.39 (1.4-6.5); GRAN % 59.9 % (50.0-68.0); HEMOGLOBIN 7.7 g/dL (12.0-16.0); LYMPH # 2.6 (1.2-3.4); LYMPH % 24.8 % (22.0-35.0); MEAN CELL VOLUME 85.7 fl (80.0-105.0); MEAN CORPUSCULAR HEMOGLOBIN 28.2 pg (25.0-35.0); MEAN CORPUSCULAR HGB CONC 32.9 g/dl (31.0-37.0); MEAN PLATELET VOLUME 11.3 fl (7.0-11.0); MONO # 1.2 (0.1-0.6); MONO % 11.1 % (1.0-6.0); RBC 2.73 10^6/uL (3.5-6.1); RED CELL DISTRIBUTION WIDTH 17.1 % (11.5-14.5); WHITE BLOOD COUNT 10.7 10^3/uL (4.5-11.0)
[2018-05-24 07:44] LABS: ALBUMIN 2.6 g/dL (3.0-4.8); ALT/SGPT 35 U/L (7-56); AST/SGOT 31 U/L (14-36); BLOOD UREA NITROGEN 28 mg/dL (7-21); CALCIUM 8.3 mg/dL (8.4-10.5); GFR NON-AFRICAN AMERICAN > 60
--- NOTE | 2018-05-24 08:50 | CP.PCM.PN ---
<Stiven Coradokaz - Last Filed: 05/24/18 08:47> Subjective - Date & Time of Evaluation Date of Evaluation: 05/24/18 Time of Evaluation: 08:47 - Subjective Subjective: Podiatry progress note for Dr. Philip 82 y/o female seen and evaluated at bedside. Patient reports feeling much better today. Patient states that she is in pain at her right knee from the surgical site. Patient denies any new pedal complaints, and states she is ready to go home. Patient denies any complaints of F/N/V/SOB/chills Objective - Vital Signs/Intake and Output Vital Signs (last 24 hours): Temp Pulse Resp BP Pulse Ox 98.4 F 80 16 109/61 95 05/23/18 22:00 05/23/18 22:00 05/23/18 22:00 05/23/18 22:00 05/23/18 22:00 Intake and Output: 05/24/18 05/24/18 06:59 18:59 Intake Total 360 Balance 360 - Medications Medications: Current Medications Acetaminophen (Tylenol 325 Mg Supp) 325 mg RC Q6H PRN PRN Reason: Pain, moderate (4-7) Aspirin (Ecotrin) 81 mg PO DAILY [facility] Last Admin: 05/23/18 10:00 Dose: Not Given Atenolol (Tenormin) 25 mg PO BID [facility] Last Admin: 05/23/18 17:37 Dose: 25 mg Digoxin (Lanoxin) 0.25 mg IVP 1400 [facility] Last Admin: 05/23/18 13:54 Dose: 0.25 mg Enoxaparin Sodium (Lovenox) 60 mg SC Q12H [facility]; Protocol Last Admin: 05/19/18 21:00 Dose: Not Given Multivitamins/Vitamin C 10 ml/Amino Acids/Electrolytes/Dextrose 2,010 mls @ 83 mls/hr IV .Q24H [facility] Stop: 05/24/18 11:16 Last Admin: 05/23/18 12:09 Dose: 83 mls/hr Fat Emulsion Intravenous (Intralipid 20%) 250 mls @ 21 mls/hr IV MWF@1115 [facility] Last Admin: 05/23/18 12:09 Dose: 21 mls/hr Neomycin/Polymyxin/Bacitracin (Neosporin Triple Antibiotic Oint) 1 gm TOP DAILY [facility] Last Admin: 05/23/18 09:19 Dose: Not Given Pantoprazole Sodium (Protonix Inj) 40 mg IVP DAILY [facility] Last Admin: 05/23/18 09:18 Dose: 40 mg Warfarin Sodium (Coumadin) 8 mg PO 1800 [facility] Last Admin: 05/19/18 17:10 Dose: Not Given - Labs Labs: 05/24/18 06:00 05/24/18 06:00 PT 13.1 SECONDS (9.4-12.5) H 05/24/18 06:00 INR 1.14 05/24/18 06:00 APTT 35.2 Seconds (25.1-36.5) 05/16/18 19:12 - Constitutional Appears: Well, Non-toxic, No Acute Distress - Head Exam Head Exam: ATRAUMATIC, NORMOCEPHALIC - Extremities Exam Additional comments: R LE focused exam: Vasc: DP/PT faintly palpable. Cap refill< 3 sec to all digits. Temp gradient warm to cool. No edema. Multiple ecchymotic patches extends from the periwound area at the knee joint all the way down to the R ankle. Periwound erythema noted. Neuro: Gross and protective sensations are intact. Derm: An open wound measures [id number]. Minimal sero-sanguinous and purulent drainage noted. No malodor. Base is mixed necrotic,granular and fibrous 20:40:40. No probe to bone, no tracking or undermining. Periwound erythema and ecchymosis noted. Positive clinical signs of infection. Wound regressing as skin appears to darken in color periwound and down the leg. MSK: Severe pain on palpating the periwound area. Muscle power around the knee joint couldn't be assessed due to pain and guarding. Passive and active ROM could be performed with guarding at the level of the R foot and ankle. - Neurological Exam Neurological Exam: Alert, Awake, Oriented x3 - Psychiatric Exam Psychiatric exam: Normal Affect, Normal Mood Assessment and Plan - Assessment and Plan (Free Text) Assessment: 82 y/o female with infected right knee wound and osteomyelitis Plan: Patient seen and evaluated with Dr. Philip Charts, labs and vitals reviewed; Afebrile, No leukocytosis Wound culture collected, ordered and sent to the lab - Pantonea Species Wound cleansed gently with sterile saline, bactroban, maxorb, xeroform, ABD applied, ABD taped down as lifting leg is too painful for patient Patient refused multipodus boot for both feet, aware of possibility of pressure ulcer Right knee x-ray - prosthesis removed, cement spacer in place Focus on replenishing nutrition levels for patient Continue medical management per medicine and ID team Podiatry will continue to follow patient while in house. <Thai Philip - Last Filed: 05/27/18 13:02> Objective - Vital Signs/Intake and Output Vital Signs (last 24 hours): Temp Pulse Resp BP Pulse Ox 98 F 71 20 162/86 H 97 05/27/18 06:00 05/27/18 10:28 05/27/18 06:00 05/27/18 10:28 05/27/18 06:00 Intake and Output: 05/27/18 05/27/18 06:59 18:59 Intake Total 420 Output Total 500 Balance -80 - Medications Medications: Current Medications Acetaminophen (Tylenol 325mg Tab) 650 mg PO Q6H PRN PRN Reason: Pain, moderate (4-7) Last Admin: 05/26/18 06:16 Dose: 650 mg Apixaban (Eliquis) 2.5 mg PO BID [facility]; Protocol Last Admin: 05/27/18 10:28 Dose: 2.5 mg Aspirin (Ecotrin) 81 mg PO DAILY [facility] Last Admin: 05/27/18 10:28 Dose: 81 mg Atenolol (Tenormin) 25 mg PO BID [facility] Last Admin: 05/27/18 10:28 Dose: 25 mg Atorvastatin Calcium (Lipitor) 20 mg PO DIN [facility] Last Admin: 05/26/18 18:39 Dose: 20 mg Digoxin (Lanoxin) 0.25 mg PO 1400 [facility] Last Admin: 05/26/18 14:48 Dose: 0.25 mg Enoxaparin Sodium (Lovenox) 60 mg SC Q12H [facility]; Protocol Last Admin: 05/19/18 21:00 Dose: Not Given Mirtazapine (Remeron) 15 mg PO HS [facility] Last Admin: 05/27/18 11:57 Dose: Not Given Pantoprazole Sodium (Protonix Inj) 40 mg IVP DAILY [facility] Last Admin: 05/27/18 10:29 Dose: 40 mg - Labs Labs: 05/27/18 06:30 05/27/18 06:30 PT 14.7 SECONDS (9.4-12.5) H 05/27/18 06:30 INR 1.27 05/27/18 06:30 APTT 35.2 Seconds (25.1-36.5) 05/16/18 19:12 Attending/Attestation - Attestation I have personally seen and examined this patient.: Yes I have fully participated in the care of the patient.: Yes I have reviewed all pertinent clinical information, including history, physical exam and plan: Yes
[2018-05-24] MEDS: Bacitracin/Neomycin/Polymyxin Oint(30GM) TOP SCH (09:51)
--- NOTE | 2018-05-24 11:05 | CP.PCM.PN ---
Subjective - Date & Time of Evaluation Date of Evaluation: 05/24/18 Time of Evaluation: 08:05 - Subjective Subjective: Patient is feeling much better today, no fevers, awake, alert and oriented to place and person, eating her oatmeal well without nausea and drinking orange juice without gagging. She still has pain in the right knee but states it is a little better. States that the dressings were changed this morning. No diarrhea. Objective - Vital Signs/Intake and Output Vital Signs (last 24 hours): Temp Pulse Resp BP Pulse Ox 98.2 F 78 18 114/53 L 97 05/23/18 06:00 05/23/18 06:00 05/23/18 06:00 05/23/18 06:00 05/23/18 06:00 Intake and Output: 05/23/18 05/23/18 06:59 18:59 Intake Total 420 Balance 420 - Medications Medications: Current Medications Acetaminophen (Tylenol 325 Mg Supp) 325 mg RC Q6H PRN PRN Reason: Pain, moderate (4-7) Aspirin (Ecotrin) 81 mg PO DAILY [facility] Last Admin: 05/22/18 10:49 Dose: Not Given Atenolol (Tenormin) 25 mg PO BID [facility] Last Admin: 05/23/18 09:19 Dose: Not Given Digoxin (Lanoxin) 0.25 mg IVP 1400 [facility] Last Admin: 05/22/18 14:19 Dose: 0.25 mg Enoxaparin Sodium (Lovenox) 60 mg SC Q12H [facility]; Protocol Last Admin: 05/19/18 21:00 Dose: Not Given Multivitamins/Vitamin C 10 ml/Amino Acids/Electrolytes/Dextrose 2,010 mls @ 83 mls/hr IV .Q24H [facility] Stop: 05/24/18 11:16 Last Admin: 05/22/18 12:29 Dose: 83 mls/hr Fat Emulsion Intravenous (Intralipid 20%) 250 mls @ 21 mls/hr IV MWF@1115 [facility] Last Admin: 05/21/18 16:05 Dose: 21 mls/hr Neomycin/Polymyxin/Bacitracin (Neosporin Triple Antibiotic Oint) 1 gm TOP DAILY [facility] Last Admin: 05/23/18 09:19 Dose: Not Given Pantoprazole Sodium (Protonix Inj) 40 mg IVP DAILY [facility] Last Admin: 05/23/18 09:18 Dose: 40 mg Warfarin Sodium (Coumadin) 8 mg PO 1800 [facility] Last Admin: 05/19/18 17:10 Dose: Not Given - Labs Labs: 05/23/18 06:00 05/23/18 06:00 PT 12.2 SECONDS (9.4-12.5) 05/23/18 06:00 INR 1.06 05/23/18 06:00 APTT 35.2 Seconds (25.1-36.5) 05/16/18 19:12 - Constitutional Appears: Non-toxic, Chronically Ill - Head Exam Head Exam: NORMAL INSPECTION - Respiratory Exam Respiratory Exam: Decreased Breath Sounds - Cardiovascular Exam Cardiovascular Exam: +S1, +S2 - GI/Abdominal Exam GI & Abdominal Exam: Soft. 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 Hernandez previously, she already has had 6 weeks of antibiotics (since 04/08/2018) and there is concern about the thrombocytopenia, nausea and vomiting - the thrombocytopenia is probably multifactorial (including meds such as Zyvox and chronic illness - we are continuing to monitor platelet count and Hematology is on-board, patient also has low Hgb and there may be myelosuppression) - the platelet count is slowly going up - discussed this also with Dr. Watson and we will monitor the CRP - the CRP is still elevated but because the patient is ill and with local right knee wound infection, the CRP may be elevated due to this and not necessarily because of the inflammation in the knee joint - superficial wound cultures growing Pantoea which is very sensitive to many antibiotics - we are currently giving Bactroban, , Neomycin, Polymixin and Bacitracin ointment topically for the wound and the patient is getting local wound care - discussed with Podiatry and according to them the wound is improving everyday - will continue to monitor WBC count and vital signs and currently the patient does not have leukocytosis or fevers (i.e. no signs of systemic infection) - may consider systemic antibiotics to cover the right knee wound but as of the moment, still hesitant to use because the patient is just recovering from her nausea and lethargy (although multifactorial, she was on antibiotics at the time) and we should continue monitor clinically - if the patient continues to tolerate PO intake, and platelet count continues to increase, may consider starting systemic antibiotics such as Azactam, but for now will continue to monitor the patient's vital signs and WBC count (so far no SIRS, no leukocytosis, no fevers, which are signs that there is no systemic infection) lactic acid levels have trended down, patient continued on IV fluids and parenteral nutrition - patient needs to continue supplemental nutrition so that her right knee is to heal properly there is discussion whether to put patient on palliative care and we are awaiting the final results of the discussion between the family and Garima Cobos will continue to monitor clinically overall prognosis is poor
--- NOTE | 2018-05-24 11:13 | CP.PCM.PN ---
<FacundoCarolann - Last Filed: 05/24/18 11:09> Subjective - Date & Time of Evaluation Date of Evaluation: 05/24/18 Time of Evaluation: 08:00 - Subjective Subjective: GI Fellow PGY5 Progress Note Pt seen and evaluated at bedside, pt denies any abdominal pain Tolerating diet. Alert and awake, feeding self. ROS: A 12pt ROS was negative except as above. Objective - Vital Signs/Intake and Output Vital Signs (last 24 hours): Temp Pulse Resp BP Pulse Ox 98.6 F 86 20 122/71 96 05/24/18 08:54 05/24/18 09:59 05/24/18 08:54 05/24/18 09:59 05/24/18 08:54 Intake and Output: 05/24/18 05/24/18 06:59 18:59 Intake Total 360 Balance 360 - Medications Medications: Current Medications Acetaminophen (Tylenol 325 Mg Supp) 325 mg RC Q6H PRN PRN Reason: Pain, moderate (4-7) Aspirin (Ecotrin) 81 mg PO DAILY [facility] Last Admin: 05/24/18 10:17 Dose: Not Given Atenolol (Tenormin) 25 mg PO BID [facility] Last Admin: 05/24/18 09:59 Dose: Not Given Digoxin (Lanoxin) 0.25 mg IVP 1400 [facility] Last Admin: 05/23/18 13:54 Dose: 0.25 mg Enoxaparin Sodium (Lovenox) 60 mg SC Q12H [facility]; Protocol Last Admin: 05/19/18 21:00 Dose: Not Given Multivitamins/Vitamin C 10 ml/Amino Acids/Electrolytes/Dextrose 2,010 mls @ 83 mls/hr IV .Q24H [facility] Stop: 05/24/18 11:16 Last Admin: 05/23/18 12:09 Dose: 83 mls/hr Fat Emulsion Intravenous (Intralipid 20%) 250 mls @ 21 mls/hr IV MWF@1115 [facility] Last Admin: 05/23/18 12:09 Dose: 21 mls/hr Neomycin/Polymyxin/Bacitracin (Neosporin Triple Antibiotic Oint) 1 gm TOP DAILY [facility] Last Admin: 05/24/18 09:51 Dose: Not Given Pantoprazole Sodium (Protonix Inj) 40 mg IVP DAILY [facility] Last Admin: 05/24/18 09:50 Dose: 40 mg Warfarin Sodium (Coumadin) 8 mg PO 1800 [facility] Last Admin: 05/19/18 17:10 Dose: Not Given - Labs Labs: 05/24/18 06:00 05/24/18 06:00 PT 13.1 SECONDS (9.4-12.5) H 05/24/18 06:00 INR 1.14 05/24/18 06:00 APTT 35.2 Seconds (25.1-36.5) 05/16/18 19:12 - Constitutional Appears: Non-toxic, No Acute Distress - Head Exam Head Exam: ATRAUMATIC, NORMAL INSPECTION, NORMOCEPHALIC - Eye Exam Eye Exam: EOMI, Normal appearance, PERRL - ENT Exam ENT Exam: Mucous Membranes Moist - Respiratory Exam Respiratory Exam: Clear to Ausculation Bilateral, NORMAL BREATHING PATTERN - Cardiovascular Exam Cardiovascular Exam: RRR, +S1, +S2 - GI/Abdominal Exam GI & Abdominal Exam: Soft, Normal Bowel Sounds - Neurological Exam Neurological Exam: Alert, Awake - Psychiatric Exam Psychiatric exam: Normal Affect, Normal Mood - Skin Skin Exam: Dry, Intact, Normal Color, Warm Assessment and Plan - Assessment and Plan (Free Text) Assessment: 82 year old female with PMH of Atrial fibrillation on Coumadin, CAD, HTN, 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 Active treatment of intractable vomiting, failure to thrive, and unintentional weight loss. 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 Prior EGD 04/2018 showed gastritis. No prior colonoscopy. Plan: -dysphagia, multifactorial - motility dysfunction, deconditioning -improved mentation and alertness -repeat speech evaluation recommends puree consistency, thin liquids -pt tolerating diet with no issues per nursing -neurology recommendation- no signs of neuromuscular disorder -on TPN, recommned to taper off TPN as po intake increases -Please call with any questions or concerns <Howard Olguin V - Last Filed: 05/24/18 23:33> Objective - Vital Signs/Intake and Output Vital Signs (last 24 hours): Temp Pulse Resp BP Pulse Ox 97.9 F 80 18 128/77 100 05/24/18 22:18 05/24/18 22:18 05/24/18 22:18 05/24/18 22:18 05/24/18 22:18 Intake and Output: 05/24/1818 18:59 06:59 Intake Total 540 Balance 540 - Medications Medications: Current Medications Acetaminophen (Tylenol 325 Mg Supp) 325 mg RC Q6H PRN PRN Reason: Pain, moderate (4-7) Aspirin (Ecotrin) 81 mg PO DAILY [facility] Last Admin: 05/24/18 10:17 Dose: Not Given Atenolol (Tenormin) 25 mg PO BID [facility] Last Admin: 05/24/18 09:59 Dose: Not Given Digoxin (Lanoxin) 0.25 mg PO 1400 [facility] Enoxaparin Sodium (Lovenox) 60 mg SC Q12H [facility]; Protocol Last Admin: 05/19/18 21:00 Dose: Not Given Multivitamins/Vitamin C 10 ml/Amino Acids/Electrolytes/Dextrose 2,010 mls @ 83 mls/hr IV .Q24H [facility] Stop: 05/27/18 11:16 Fat Emulsion Intravenous (Intralipid 20%) 250 mls @ 21 mls/hr IV MWF@1115 [facility] Neomycin/Polymyxin/Bacitracin (Neosporin Triple Antibiotic Oint) 1 gm TOP DAILY [facility] Last Admin: 05/24/18 09:51 Dose: Not Given Pantoprazole Sodium (Protonix Inj) 40 mg IVP DAILY [facility] Last Admin: 05/24/18 09:50 Dose: 40 mg Warfarin Sodium (Coumadin) 8 mg PO 1800 [facility] Last Admin: 05/24/18 17:01 Dose: Not Given - Labs Labs: 05/24/18 06:00 05/24/18 06:00 PT 13.1 SECONDS (9.4-12.5) H 05/24/18 06:00 INR 1.14 05/24/18 06:00 APTT 35.2 Seconds (25.1-36.5) 05/16/18 19:12 Attending/Attestation - Attestation I have personally seen and examined this patient.: Yes I have fully participated in the care of the patient.: Yes I have reviewed all pertinent clinical information, including history, physical exam and plan: Yes Notes (Text): This is an addendum to GI consult report dictated by the GI Fellow.The patient was seen and examined earlier. Medical records, lab studies, imagings were reviewed. Last 24 hours events reviewed. Agreed with the above treatment plan as outlined in GI Fellow 's notes with the addition of the following 05/24/18 23:33
--- NOTE | 2018-05-25 07:44 | CP.PCM.PN ---
<Andrei Irvin - Last Filed: 05/25/18 19:10> Subjective - Date & Time of Evaluation Date of Evaluation: 05/25/18 Time of Evaluation: 07:44 - Subjective Subjective: PGY-1 Medicine Progress Note for Dr. Henao's service Patient seen and examined at bedside this AM, resting comfortably and eating breakfast. No acute overnight events report. Patient much more alert, clinically improving. Continues to be in good spirits. 12 pt ROS unchanged at this time. Objective - Vital Signs/Intake and Output Vital Signs (last 24 hours): Temp Pulse Resp BP Pulse Ox 97.9 F 80 18 128/77 100 05/24/18 22:18 05/24/18 22:18 05/24/18 22:18 05/24/18 22:18 05/24/18 22:18 - Medications Medications: Current Medications Acetaminophen (Tylenol 325 Mg Supp) 325 mg RC Q6H PRN PRN Reason: Pain, moderate (4-7) Aspirin (Ecotrin) 81 mg PO DAILY [facility] Last Admin: 05/24/18 10:17 Dose: Not Given Atenolol (Tenormin) 25 mg PO BID [facility] Last Admin: 05/24/18 09:59 Dose: Not Given Digoxin (Lanoxin) 0.25 mg PO 1400 [facility] Enoxaparin Sodium (Lovenox) 60 mg SC Q12H [facility]; Protocol Last Admin: 05/19/18 21:00 Dose: Not Given Multivitamins/Vitamin C 10 ml/Amino Acids/Electrolytes/Dextrose 2,010 mls @ 83 mls/hr IV .Q24H [facility] Stop: 05/27/18 11:16 Fat Emulsion Intravenous (Intralipid 20%) 250 mls @ 21 mls/hr IV MWF@1115 [facility] Neomycin/Polymyxin/Bacitracin (Neosporin Triple Antibiotic Oint) 1 gm TOP DAILY [facility] Last Admin: 05/24/18 09:51 Dose: Not Given Pantoprazole Sodium (Protonix Inj) 40 mg IVP DAILY [facility] Last Admin: 05/24/18 09:50 Dose: 40 mg Warfarin Sodium (Coumadin) 8 mg PO 1800 [facility] Last Admin: 05/24/18 17:01 Dose: Not Given - Labs Labs: 05/24/18 06:00 05/24/18 06:00 PT 13.1 SECONDS (9.4-12.5) H 05/24/18 06:00 INR 1.14 05/24/18 06:00 APTT 35.2 Seconds (25.1-36.5) 05/16/18 19:12 - Constitutional Appears: Non-toxic, No Acute Distress - Head Exam Head Exam: ATRAUMATIC, NORMAL INSPECTION, NORMOCEPHALIC - Eye Exam Eye Exam: EOMI, Normal appearance - ENT Exam ENT Exam: Mucous Membranes Moist, Normal Exam - Neck Exam Neck Exam: Full ROM, Normal Inspection - Respiratory Exam Respiratory Exam: Clear to Ausculation Bilateral, NORMAL BREATHING PATTERN. absent: Accessory Muscle Use, Rales, Rhonchi, Wheezes, Respiratory Distress, Stridor - Cardiovascular Exam Cardiovascular Exam: REGULAR RHYTHM, +S1, +S2 - GI/Abdominal Exam GI & Abdominal Exam: Soft, Normal Bowel Sounds. absent: Distended, Firm, Guarding, Rigid, Tenderness, Organomegaly, Rebound - Extremities Exam Extremities Exam: Normal Capillary Refill, Pedal Edema. absent: Joint Swelling Additional comments: right knee immobilizer in place - Back Exam Back Exam: NORMAL INSPECTION - Neurological Exam Neurological Exam: Alert, Awake, Oriented x3 - Psychiatric Exam Psychiatric exam: Normal Affect, Normal Mood - Skin Skin Exam: Dry, Intact, Normal Color, Warm Assessment and Plan - Assessment and Plan (Free Text) Assessment: 82 yo female with past medical history of Afib on cumadin, CAD, HTN, R TKA (02/2018) complicated by VRE with prosthesis removal (04/2018) presenting with intractible vomiting, failure to thrive, and unintentional weight loss. PO intake improving, continuing to taper TPN. PLT count increasing, can resume anticoagulation per Heme/Onc. Plan: Failure to thrive, dysphagia -tapering TPN today until pt has adequate PO intake -Patient's family refusing PEG feeding at this time, per mother's wishes -Recent completion of 6 week course of Abx: zyvox and daptomycin discontinued -CT chest: no acute findings -CT head: no acute findings -EGD (04/2018): no esophageal pathology or signs of gastric outlet obstruction -repeat speech/swallow eval (05/23) -EXTERNAL GRINDER TENDER recommends trial puree consistency diet with extra gravy and thin liquids -aspiration/reflux precautions -continue TPN until Pt. demonstrates a good percentage of intake with p.o. meals -GI recs appreciated -dysphagia, multifactorial - motility dysfunction, deconditioning -improved mentation and alertness -repeat speech evaluation recommends puree consistency, thin liquids -pt tolerating diet with no issues per nursing -neurology recommendation- no signs of neuromuscular disorder -on TPN, recommend to taper off TPN as po intake increases -Please call with any questions or concerns -Neuro recs appreciated - no signs of NM disorder -Palliative recs appreciated Jeannette LEVIN and I met with patients daughter's Isabel and Marii (both POA's). Family aware of mothers medical situation and poor prognosis. Benefits and burdens of feeding tube discussed at length. Daughters refusing PEG tube, in accordance of mother's AD wishes . Hospice services explained in detail. Questions answered. Daughters conflicted, state they are unable to stay home from their jobs in order to care for their mother. Daughter states that mother does not have the finances to pay for 24 hour aide or go to [place] facility. Father [facility] offered. Family declined,claim they do not have finances for this either. Family requesting to speak with regarding medicaid application. Anemia, Thrombocytopenia -pt s/p 1 unit prbc, given a dose of erythropoietin -hyperproliferative erythroid response -anemia of chronic disease -iron, b12, folate wnl -PLT 71 (05/25) -Heme/Onc recs appreciated -medication induced thrombocytopenia; zyvox can cause cytopenias -zyvox dc'd -spoke with alesia Mckeon to resume ASA, coumadin -coumadin may be switched back to home dose 4 mg for time being; keep lovenox on hold, f/u PT/INR tomorrow AM R TKA complicated by VRE with prosthesis removal; wound cx: pantoea -ID recs (Dr. Mi) appreciated -CRP elevated b/c patient is ill; not an accurate assessment of the knee inflammation -will get another CRP -superficial wound cx: pantoea sensitive to many abc: giving bactroban, polymixin, bacitracin ointment -c/w local wound care Atrial fibrillation - Digoxin 0.8 (05/16) - Atenolol 25 mg PO daily - Coumadin held due to coagulopathy CAD - aspirin resumed (05/25) - lipitor 20 mg PPx, Diet, Dispostion -DVT ppx: lovenox on hold -Diet: pureed, thin liquid, extra gravy -Dispo: patient clinically improving, tolerating po intake. Begin taper of TPN as PO intake increases. ASA, coumadin resumed per Dr. De Jesus Case discussed with Dr. Juliano Irvin DO, PGY-1 <Brianne Henao R - Last Filed: 05/26/18 14:43> Objective - Vital Signs/Intake and Output Vital Signs (last 24 hours): Temp Pulse Resp BP Pulse Ox 98 F 77 20 136/57 L 98 05/26/18 06:00 05/26/18 06:00 05/26/18 06:00 05/26/18 06:00 05/26/18 06:00 - Medications Medications: Current Medications Acetaminophen (Tylenol 325mg Tab) 650 mg PO Q6H PRN PRN Reason: Pain, moderate (4-7) Last Admin: 05/26/18 06:16 Dose: 650 mg Apixaban (Eliquis) 2.5 mg PO BID [facility]; Protocol Aspirin (Ecotrin) 81 mg PO DAILY [facility] Last Admin: 05/26/18 10:09 Dose: 81 mg Atenolol (Tenormin) 25 mg PO BID [facility] Last Admin: 05/26/18 10:09 Dose: 25 mg Atorvastatin Calcium (Lipitor) 20 mg PO DIN [facility] Last Admin: 05/25/18 17:06 Dose: 20 mg Digoxin (Lanoxin) 0.25 mg PO 1400 [facility] Last Admin: 05/25/18 14:17 Dose: 0.25 mg Enoxaparin Sodium (Lovenox) 60 mg SC Q12H [facility]; Protocol Last Admin: 05/19/18 21:00 Dose: Not Given Multivitamins/Vitamin C 10 ml/Amino Acids/Electrolytes/Dextrose 2,010 mls @ 83 mls/hr IV .Q24H [facility] Stop: 05/27/18 11:16 Last Admin: 05/26/18 13:41 Dose: 83 mls/hr Fat Emulsion Intravenous (Intralipid 20%) 250 mls @ 21 mls/hr IV MWF@1115 [facility] Last Admin: 05/26/18 13:41 Dose: 21 mls/hr Mupirocin (Bactroban Ointment) 0 gm TOP BID [facility] Neomycin/Polymyxin/Bacitracin (Neosporin Triple Antibiotic Oint) 1 gm TOP DAILY [facility] Last Admin: 05/25/18 10:38 Dose: 1 applic Pantoprazole Sodium (Protonix Inj) 40 mg IVP DAILY [facility] Last Admin: 05/26/18 10:09 Dose: 40 mg - Labs Labs: 05/26/18 07:40 05/26/18 07:40 PT 12.7 SECONDS (9.4-12.5) H 05/26/18 06:15 INR 1.10 05/26/18 06:15 APTT 35.2 Seconds (25.1-36.5) 05/16/18 19:12 Attending/Attestation - Attestation I have personally seen and examined this patient.: Yes I have fully participated in the care of the patient.: Yes I have reviewed all pertinent clinical information, including history, physical exam and plan: Yes Notes (Text): Patient seen and examined by me with resident at 9:55AM on 05/25/18. Case including HPI, physical exam, and assessment and plan discussed with resident. Agree with above with following additions/corrections. Patient is an 82-year-old female with past medical history of hypertension, coronary artery disease, atrial fibrillation on Coumadin, osteoarthritis, s/p total right knee replacement complicated with VRE and subsequent removal of prosthesis that presented to the emergency room with nausea and vomiting, and failure to thrive. Patient states she is feeling pretty good. States she wants to go home. Patient states her right knee pain is much better. Patient is tolerating diet. She is denying any difficulty swallowing. No coughing with eating. Patient denies any chest pain or shortness of breath. No nausea, vomiting, or abdominal pain. Patient is afebrile. No headaches or dizziness. No dysuria. Physical exam: General: Awake and alert sitting up in bed in no acute distress. HEENT: Normocephalic, atraumatic. Extraocular muscles intact, pupils equal and reactive, no scleral icterus. Oropharynx is pink and moist. Neck is supple Cardiovascular: Irregularly irregular rhythm. No murmurs, rubs, or gallops appreciated Pulmonary: Normal respiratory effort. No rhonchi, rales, or wheezing appreciated. Gastrointestinal: Soft, nondistended. Nontender. Positive bowel sounds all 4 quadrants. No guarding. Musculoskeletal: Moves all extremities. No calf tenderness. No lateral lower extremity pitting edema. Right knee dressing clean, dry, and intact. Central nervous system: AAOx3 Dermatologic: Skin warm and dry. Assessment and plan: Patient is an 82-year-old female with past medical history of hypertension, coronary artery disease, atrial fibrillation on Coumadin, osteoarthritis, s/p total right knee replacement complicated with VRE and subsequent removal of prosthesis that presented to the emergency room with nausea and vomiting, and failure to thrive. 1. Failure to thrive. Dysphagia. Improving. Speech and swallow following, recommendations appreciated. GI following, recommendations appreciated. Continue with puree consistency diet and thin liquids. Taper off TPN as PO intake increases. Continue aspiration precautions. 2. Anemia. Thrombocytopenia. Coagulopathy. Pancytopenia improving. H&H downtren ding. Hem/onc following, recommendations appreciated. Anemia likely secondary to chronic disease. Per alesia Mckeon to resume ASA and Coumadin. She was given a dose of erythropoietin. 3. S/P right total knee replacement complicated by VRE and subsequent stasis removal. Patient is status post treatment with Zyvox for 6 weeks. Superficial wound cultures now positive for pantoea species. ID following, recommendations appreciated. Wound being treated locally by podiatry. Continue with Neosporin. No oral or IV antibiotics indicated for now per ID. Orthopedic following, recommendations appreciated. CRP downtrending. 4. Atrial fibrillation. Patient is rate controlled. Continue digoxin and atenolol. Restart Coumadin. Monitor INR. 5. Coronary artery disease. Continue aspirin and atenolol. Continue Lipitor. 6. Essential hypertension. Continue atenolol. 7. GI/DVT prophylaxis. Protonix/Coumadin 8. Patient is a DNR/DNI Case was discussed in detail with the patient regarding current diagnosis and t reatment plan. All questions answered.
[2018-05-25 08:02] LABS: BASO # 0.02 K/mm3 (0.0-2.0); BASO % 0.2 % (0.0-3.0); EOS # 0.3 (0.0-0.7); EOS % 3.4 % (1.5-5.0); GRAN # 6.41 (1.4-6.5); GRAN % 64.5 % (50.0-68.0); HEMOGLOBIN 7.4 g/dL (12.0-16.0); LYMPH # 1.7 (1.2-3.4); LYMPH % 17.3 % (22.0-35.0); MEAN CELL VOLUME 86.7 fl (80.0-105.0); MEAN CORPUSCULAR HGB CONC 32.3 g/dl (31.0-37.0); MEAN PLATELET VOLUME 10.7 fl (7.0-11.0); MONO # 1.5 (0.1-0.6); MONO % 14.6 % (1.0-6.0); RBC 2.64 10^6/uL (3.5-6.1); RED CELL DISTRIBUTION WIDTH 17.3 % (11.5-14.5); WHITE BLOOD COUNT 9.9 10^3/uL (4.5-11.0)
[2018-05-25 08:09] LABS: ALB/GLOB RATIO 0.9 (1.1-1.8); ALBUMIN 2.6 g/dL (3.0-4.8); ALT/SGPT 39 U/L (7-56); AST/SGOT 35 U/L (14-36); BLOOD UREA NITROGEN 23 mg/dL (7-21); CALCIUM 8.1 mg/dL (8.4-10.5); GFR NON-AFRICAN AMERICAN > 60
--- NOTE | 2018-05-25 10:07 | CP.PCM.PN ---
<Parminder Corado - Last Filed: 05/25/18 10:06> Subjective - Date & Time of Evaluation Date of Evaluation: 05/25/18 Time of Evaluation: 10:06 - Subjective Subjective: Podiatry progress note for Dr. Oliva 82 y/o female seen and evaluated at bedside. Patient reports feeling much better today. Patient states that she is in pain at her right knee from the surgical site. Patient denies any new pedal complaints, and states she is ready to go home. Patient denies any complaints of F/N/V/SOB/chills Objective - Vital Signs/Intake and Output Vital Signs (last 24 hours): Temp Pulse Resp BP Pulse Ox 98.1 F 70 18 130/74 98 05/25/18 06:00 05/25/18 06:00 05/25/18 06:00 05/25/18 06:00 05/25/18 06:00 - Medications Medications: Current Medications Acetaminophen (Tylenol 325 Mg Supp) 325 mg RC Q6H PRN PRN Reason: Pain, moderate (4-7) Aspirin (Ecotrin) 81 mg PO DAILY [facility] Last Admin: 05/24/18 10:17 Dose: Not Given Atenolol (Tenormin) 25 mg PO BID [facility] Last Admin: 05/24/18 09:59 Dose: Not Given Digoxin (Lanoxin) 0.25 mg PO 1400 [facility] Enoxaparin Sodium (Lovenox) 60 mg SC Q12H [facility]; Protocol Last Admin: 05/19/18 21:00 Dose: Not Given Multivitamins/Vitamin C 10 ml/Amino Acids/Electrolytes/Dextrose 2,010 mls @ 83 mls/hr IV .Q24H [facility] Stop: 05/27/18 11:16 Fat Emulsion Intravenous (Intralipid 20%) 250 mls @ 21 mls/hr IV MWF@1115 [facility] Neomycin/Polymyxin/Bacitracin (Neosporin Triple Antibiotic Oint) 1 gm TOP DAILY [facility] Last Admin: 05/24/18 09:51 Dose: Not Given Pantoprazole Sodium (Protonix Inj) 40 mg IVP DAILY [facility] Last Admin: 05/24/18 09:50 Dose: 40 mg Warfarin Sodium (Coumadin) 8 mg PO 1800 [facility] Last Admin: 05/24/18 17:01 Dose: Not Given - Labs Labs: 05/25/18 07:45 05/25/18 07:45 PT 13.1 SECONDS (9.4-12.5) H 05/24/18 06:00 INR 1.14 05/24/18 06:00 APTT 35.2 Seconds (25.1-36.5) 05/16/18 19:12 - Constitutional Appears: Well, Non-toxic, No Acute Distress - Head Exam Head Exam: ATRAUMATIC, NORMOCEPHALIC - Extremities Exam Additional comments: R LE focused exam: Vasc: DP/PT faintly palpable. Cap refill< 3 sec to all digits. Temp gradient warm to cool. No edema. Multiple ecchymotic patches extends from the periwound area at the knee joint all the way down to the R ankle. Periwound erythema noted. Neuro: Gross and protective sensations are intact. Derm: An open wound measures [id number]. Minimal sero-sanguinous and purulent drainage noted. No malodor. Base is mixed necrotic,granular and fibrous 20:40:40. No probe to bone, no tracking or undermining. Periwound erythema and ecchymosis noted. Positive clinical signs of infection. Wound regressing as skin appears to darken in color periwound and down the leg. MSK: Severe pain on palpating the periwound area. Muscle power around the knee joint couldn't be assessed due to pain and guarding. Passive and active ROM could be performed with guarding at the level of the R foot and ankle. - Neurological Exam Neurological Exam: Alert, Awake, Oriented x3 - Psychiatric Exam Psychiatric exam: Normal Affect, Normal Mood Assessment and Plan - Assessment and Plan (Free Text) Assessment: 82 y/o female with infected right knee wound and osteomyelitis Plan: Patient seen and evaluated for attending Dr. Oliva Charts, labs and vitals reviewed; Afebrile, No leukocytosis Wound culture collected, ordered and sent to the lab - Pantonea Species Wound cleansed gently with sterile saline, bactroban, maxorb, xeroform, ABD applied, ABD taped down as lifting leg is too painful for patient Patient refused multipodus boot for both feet, aware of possibility of pressure ulcer Right knee x-ray - prosthesis removed, cement spacer in place Focus on replenishing nutrition levels for patient Continue medical management per medicine and ID team Podiatry will continue to follow patient while in house. <HazelVandanaKristen K - Last Filed: 05/31/18 15:35> Objective - Vital Signs/Intake and Output Vital Signs (last 24 hours): Temp Pulse Resp BP Pulse Ox 98.2 F 59 L 20 130/63 97 05/31/18 14:00 05/31/18 14:00 05/31/18 14:00 05/31/18 14:00 05/31/18 14:00 - Medications Medications: Current Medications Acetaminophen (Tylenol 325mg Tab) 650 mg PO Q6H PRN PRN Reason: Pain, moderate (4-7) Last Admin: 05/30/18 16:19 Dose: 650 mg Apixaban (Eliquis) 2.5 mg PO BID [facility]; Protocol Last Admin: 05/31/18 11:25 Dose: 2.5 mg Aspirin (Ecotrin) 81 mg PO DAILY [facility] Last Admin: 05/31/18 11:25 Dose: 81 mg Atenolol (Tenormin) 25 mg PO BID [facility] Last Admin: 05/31/18 11:25 Dose: 25 mg Atorvastatin Calcium (Lipitor) 20 mg PO DIN [facility] Last Admin: 05/30/18 17:32 Dose: 20 mg Digoxin (Lanoxin) 0.25 mg PO 1400 [facility] Last Admin: 05/30/18 15:33 Dose: 0.25 mg Enoxaparin Sodium (Lovenox) 60 mg SC Q12H [facility]; Protocol Last Admin: 05/19/18 21:00 Dose: Not Given Mirtazapine (Remeron) 15 mg PO HS [facility] Last Admin: 05/30/18 21:15 Dose: Not Given Ondansetron HCl (Zofran Inj) 4 mg IVP Q6H PRN PRN Reason: Nausea/Vomiting Pantoprazole Sodium (Protonix Inj) 40 mg IVP DAILY [facility] Last Admin: 05/31/18 11:25 Dose: 40 mg - Labs Labs: 05/31/18 07:00 05/31/18 07:00 PT 16.7 SECONDS (9.4-12.5) H 05/31/18 07:00 INR 1.44 05/31/18 07:00 APTT 35.2 Seconds (25.1-36.5) 05/16/18 19:12 Attending/Attestation - Attestation I have personally seen and examined this patient.: Yes I have fully participated in the care of the patient.: Yes I have reviewed all pertinent clinical information, including history, physical exam and plan: Yes
[2018-05-25] MEDS: Bacitracin/Neomycin/Polymyxin Oint(30GM) TOP SCH (10:38)
--- NOTE | 2018-05-25 11:27 | CP.PCM.PN ---
Subjective - Date & Time of Evaluation Date of Evaluation: 05/25/18 Time of Evaluation: 08:40 - Subjective Subjective: Patient is feeling much better today, eating her oatmeal well, drank orange juice and has no nausea currently, no vomiting, no abdominal pain. Has right knee pain when the dressings are changed. The dressings were changed this morning. No fever or chills, no headache. No diarrhea. Objective - Vital Signs/Intake and Output Vital Signs (last 24 hours): Temp Pulse Resp BP Pulse Ox 98.6 F 86 20 122/71 96 05/24/18 08:54 05/24/18 09:59 05/24/18 08:54 05/24/18 09:59 05/24/18 08:54 Intake and Output: 05/24/18 05/24/18 06:59 18:59 Intake Total 360 Balance 360 - Medications Medications: Current Medications Acetaminophen (Tylenol 325 Mg Supp) 325 mg RC Q6H PRN PRN Reason: Pain, moderate (4-7) Aspirin (Ecotrin) 81 mg PO DAILY [facility] Last Admin: 05/24/18 10:17 Dose: Not Given Atenolol (Tenormin) 25 mg PO BID [facility] Last Admin: 05/24/18 09:59 Dose: Not Given Digoxin (Lanoxin) 0.25 mg IVP 1400 [facility] Last Admin: 05/23/18 13:54 Dose: 0.25 mg Enoxaparin Sodium (Lovenox) 60 mg SC Q12H [facility]; Protocol Last Admin: 05/19/18 21:00 Dose: Not Given Multivitamins/Vitamin C 10 ml/Amino Acids/Electrolytes/Dextrose 2,010 mls @ 83 mls/hr IV .Q24H [facility] Stop: 05/24/18 11:16 Last Admin: 05/23/18 12:09 Dose: 83 mls/hr Fat Emulsion Intravenous (Intralipid 20%) 250 mls @ 21 mls/hr IV MWF@1115 [facility] Last Admin: 05/23/18 12:09 Dose: 21 mls/hr Neomycin/Polymyxin/Bacitracin (Neosporin Triple Antibiotic Oint) 1 gm TOP DAILY [facility] Last Admin: 05/24/18 09:51 Dose: Not Given Pantoprazole Sodium (Protonix Inj) 40 mg IVP DAILY [facility] Last Admin: 05/24/18 09:50 Dose: 40 mg Warfarin Sodium (Coumadin) 8 mg PO 1800 [facility] Last Admin: 05/19/18 17:10 Dose: Not Given - Labs Labs: 05/24/18 06:00 05/24/18 06:00 PT 13.1 SECONDS (9.4-12.5) H 05/24/18 06:00 INR 1.14 05/24/18 06:00 APTT 35.2 Seconds (25.1-36.5) 05/16/18 19:12 - Constitutional Appears: Chronically Ill - Head Exam Head Exam: NORMAL INSPECTION - Respiratory Exam Respiratory Exam: Decreased Breath Sounds - Cardiovascular Exam Cardiovascular Exam: +S1, +S2 - GI/Abdominal Exam GI & Abdominal Exam: Soft. 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 Hernandez previously, she already has had 6 weeks of antibiotics (since 04/08/2018) and there is concern about the thrombocytopenia, nausea and vomiting - the thrombocytopenia is probably multifactorial (including meds such as Zyvox and chronic illness - we are continuing to monitor platelet count and Hematology is on-board, patient also has low Hgb and there may be myelosuppression) - the platelet count is slowly going up (today it is 71k) - discussed this also with Dr. Watson and we will monitor the CRP - the CRP is still elevated but because the patient is ill and with local right knee wound infection and with local wound care and dressing changes, the CRP may be elevated due to this and not necessarily because of the inflammation in the knee joint - superficial wound cultures growing Pantoea which is very sensitive to many antibiotics - we currently have ordered Bactroban, Neomycin, Polymixin and Bacitracin ointment topically for the wound and the patient is getting local wound care by Podiatry - discussed with Podiatry and according to them the wound is improving everyday - will continue to monitor WBC count and vital signs and currently the patient does not have leukocytosis or fevers (i.e. no signs of systemic infection) - may consider systemic antibiotics to cover the right knee wound if there are signs of systemic infection (leukocytosis, fevers, worsening of wound), and especially the patient is just recovering from her nausea and lethargy (although multifactorial, she was on antibiotics at the time) and we should continue monitor clinically - if the patient continues to tolerate PO intake, and platelet count continues to increase, may consider starting systemic antibiotics such as Azactam if there are signs of systemic disease, but for now will continue to monitor the patient's vital signs and WBC count (so far no SIRS, no leukocytosis, no fevers, which are signs that there is no systemic infection) lactic acid levels have trended down, patient continued on IV fluids and parenteral nutrition - patient needs to continue supplemental nutrition so that her right knee is to heal properly; she is getting some PO intake there is discussion whether to put patient on palliative care and we are awaiting the final results of the discussion between the family and Garima Cobos will continue to monitor clinically overall prognosis is poor
[2018-05-25] MEDS: Digoxin 250 mcg (0.25 mg) Tab PO SCH (14:17)
[2018-05-26 06:45] LABS: INR 1.1; PROTHROMBIN TIME 12.7 SECONDS (9.4-12.5)
[2018-05-26 08:05] LABS: BASO # 0.01 K/mm3 (0.0-2.0); BASO % 0.1 % (0.0-3.0); EOS # 0.2 (0.0-0.7); EOS % 2.4 % (1.5-5.0); GRAN # 6.41 (1.4-6.5); LYMPH # 1.1 (1.2-3.4); LYMPH % 11.8 % (22.0-35.0); MEAN CELL VOLUME 87.2 fl (80.0-105.0); MEAN CORPUSCULAR HEMOGLOBIN 29.2 pg (25.0-35.0); MEAN CORPUSCULAR HGB CONC 33.5 g/dl (31.0-37.0); MEAN PLATELET VOLUME 11.6 fl (7.0-11.0); MONO # 1.2 (0.1-0.6); MONO % 13.7 % (1.0-6.0); RBC 2.74 10^6/uL (3.5-6.1); RED CELL DISTRIBUTION WIDTH 18.4 % (11.5-14.5); WHITE BLOOD COUNT 8.9 10^3/uL (4.5-11.0)
--- NOTE | 2018-05-26 08:20 | CP.PCM.PN ---
Subjective - Date & Time of Evaluation Date of Evaluation: 05/26/18 Time of Evaluation: 08:07 - Subjective Subjective: Patient seen and examined. Patient states she feels much better. Patient much more alert. She is now tolerating puree diet. Denies any nausea or vomiting Afebrile WBC 8.9 Hgb 8.0 platelets now 109 -continue to increase (71 yesterday) R knee: dressings changed last night. Dressings intact with some drainage Monitor labs Cont medical management Cont wound care with daily dressing changes Abx per ID Objective - Vital Signs/Intake and Output Vital Signs (last 24 hours): Temp Pulse Resp BP Pulse Ox 98 F 77 20 136/57 L 98 05/26/18 06:00 05/26/18 06:00 05/26/18 06:00 05/26/18 06:00 05/26/18 06:00 - Medications Medications: Current Medications Acetaminophen (Tylenol 325mg Tab) 650 mg PO Q6H PRN PRN Reason: Pain, moderate (4-7) Last Admin: 05/26/18 06:16 Dose: 650 mg Aspirin (Ecotrin) 81 mg PO DAILY [facility] Last Admin: 05/25/18 10:38 Dose: 81 mg Atenolol (Tenormin) 25 mg PO BID [facility] Last Admin: 05/25/18 17:06 Dose: Not Given Atorvastatin Calcium (Lipitor) 20 mg PO DIN [facility] Last Admin: 05/25/18 17:06 Dose: 20 mg Digoxin (Lanoxin) 0.25 mg PO 1400 [facility] Last Admin: 05/25/18 14:17 Dose: 0.25 mg Enoxaparin Sodium (Lovenox) 60 mg SC Q12H [facility]; Protocol Last Admin: 05/19/18 21:00 Dose: Not Given Multivitamins/Vitamin C 10 ml/Amino Acids/Electrolytes/Dextrose 2,010 mls @ 83 mls/hr IV .Q24H [facility] Stop: 05/27/18 11:16 Last Admin: 05/25/18 12:19 Dose: 83 mls/hr Fat Emulsion Intravenous (Intralipid 20%) 250 mls @ 21 mls/hr IV MWF@1115 [facility] Mupirocin (Bactroban Ointment) 0 gm TOP BID [facility] Neomycin/Polymyxin/Bacitracin (Neosporin Triple Antibiotic Oint) 1 gm TOP DAILY [facility] Last Admin: 11/18/18 10:38 Dose: 1 applic Pantoprazole Sodium (Protonix Inj) 40 mg IVP DAILY [facility] Last Admin: 05/25/18 10:37 Dose: 40 mg Warfarin Sodium (Coumadin) 4 mg PO 1800 [facility] Last Admin: 05/25/18 17:06 Dose: Not Given - Labs Labs: 05/25/18 07:45 05/25/18 07:45 PT 12.7 SECONDS (9.4-12.5) H 05/26/18 06:15 INR 1.10 05/26/18 06:15 APTT 35.2 Seconds (25.1-36.5) 05/16/18 19:12
[2018-05-26 08:25] LABS: ALBUMIN 2.7 g/dL (3.0-4.8); ALT/SGPT 47 U/L (7-56); AST/SGOT 48 U/L (14-36); BLOOD UREA NITROGEN 23 mg/dL (7-21); CALCIUM 8.2 mg/dL (8.4-10.5); GFR NON-AFRICAN AMERICAN > 60
--- NOTE | 2018-05-26 09:53 | CP.PCM.PN ---
<Parminder Corado - Last Filed: 05/26/18 09:37> Subjective - Date & Time of Evaluation Date of Evaluation: 05/26/18 Time of Evaluation: 09:37 - Subjective Subjective: Podiatry progress note for Dr. Oliva 82 y/o female seen and evaluated at bedside with Dr. Oliva. Patient reports feeling much better today. Patient states that she is in pain at her right knee from the surgical site. Patient describes the pain as burning. Patient denies any complaints of F/N/V/SOB/chills Objective - Vital Signs/Intake and Output Vital Signs (last 24 hours): Temp Pulse Resp BP Pulse Ox 98 F 77 20 136/57 L 98 05/26/18 06:00 05/26/18 06:00 05/26/18 06:00 05/26/18 06:00 05/26/18 06:00 - Medications Medications: Current Medications Acetaminophen (Tylenol 325mg Tab) 650 mg PO Q6H PRN PRN Reason: Pain, moderate (4-7) Last Admin: 05/26/18 06:16 Dose: 650 mg Aspirin (Ecotrin) 81 mg PO DAILY [facility] Last Admin: 05/25/18 10:38 Dose: 81 mg Atenolol (Tenormin) 25 mg PO BID [facility] Last Admin: 05/25/18 17:06 Dose: Not Given Atorvastatin Calcium (Lipitor) 20 mg PO DIN [facility] Last Admin: 05/25/18 17:06 Dose: 20 mg Digoxin (Lanoxin) 0.25 mg PO 1400 [facility] Last Admin: 05/25/18 14:17 Dose: 0.25 mg Enoxaparin Sodium (Lovenox) 60 mg SC Q12H [facility]; Protocol Last Admin: 05/19/18 21:00 Dose: Not Given Multivitamins/Vitamin C 10 ml/Amino Acids/Electrolytes/Dextrose 2,010 mls @ 83 mls/hr IV .Q24H [facility] Stop: 05/27/18 11:16 Last Admin: 05/25/18 12:19 Dose: 83 mls/hr Fat Emulsion Intravenous (Intralipid 20%) 250 mls @ 21 mls/hr IV MWF@1115 [facility] Mupirocin (Bactroban Ointment) 0 gm TOP BID [facility] Neomycin/Polymyxin/Bacitracin (Neosporin Triple Antibiotic Oint) 1 gm TOP DAILY [facility] Last Admin: 05/25/18 10:38 Dose: 1 applic Pantoprazole Sodium (Protonix Inj) 40 mg IVP DAILY [facility] Last Admin: 05/25/18 10:37 Dose: 40 mg Warfarin Sodium (Coumadin) 4 mg PO 1800 [facility] Last Admin: 05/25/18 17:06 Dose: Not Given - Labs Labs: 05/26/18 07:40 05/26/18 07:40 PT 12.7 SECONDS (9.4-12.5) H 05/26/18 06:15 INR 1.10 05/26/18 06:15 APTT 35.2 Seconds (25.1-36.5) 05/16/18 19:12 - Constitutional Appears: Well, Non-toxic, No Acute Distress - Head Exam Head Exam: ATRAUMATIC, NORMOCEPHALIC - Extremities Exam Additional comments: R LE focused exam: Vasc: DP/PT faintly palpable. Cap refill< 3 sec to all digits. Temp gradient warm to cool. No edema. Multiple ecchymotic patches extends from the periwound area at the knee joint all the way down to the R ankle. Periwound erythema noted. Neuro: Gross and protective sensations are intact. Derm: An open wound measures [id number]. Minimal sero-sanguinous drainage noted. No malodor. Base is mostly fibrotic. No probe to bone, no tracking or undermining. Periwound erythema and ecchymosis noted. Positive clinical signs of infection. Wound regressing as skin appears to darken in color periwound and down the leg. MSK: Severe pain on palpating the periwound area. Muscle power around the knee joint couldn't be assessed due to pain and guarding. Passive and active ROM could be performed with guarding at the level of the R foot and ankle. - Neurological Exam Neurological Exam: Alert, Awake, Oriented x3 - Psychiatric Exam Psychiatric exam: Normal Affect, Normal Mood Assessment and Plan - Assessment and Plan (Free Text) Assessment: 82 y/o female with infected right knee wound and osteomyelitis Plan: Patient seen and evaluated for attending Dr. Oliva Charts, labs and vitals reviewed; Afebrile, No leukocytosis Wound culture collected, ordered and sent to the lab - Pantonea Species Wound cleansed gently with sterile saline, and dressed with xeroform, ABD applied- ABD taped down as lifting leg is too painful for patient Patient refused multipodus boot for both feet, aware of possibility of pressure ulcer Right knee x-ray - prosthesis removed, cement spacer in place Focus on replenishing nutrition levels for patient Continue medical management per medicine and ID team Patient not a surgical candidate for wound debridement at this time as patient's platelet count is low Podiatry will re-evaluate whether patient can be taken to the OR once patient's platelet count has been stabilized Podiatry will continue to follow patient while in house. <Kristen Oliva - Last Filed: 05/31/18 15:34> Objective - Vital Signs/Intake and Output Vital Signs (last 24 hours): Temp Pulse Resp BP Pulse Ox 98.2 F 59 L 20 130/63 97 05/31/18 14:00 05/31/18 14:00 05/31/18 14:00 05/31/18 14:00 05/31/18 14:00 - Medications Medications: Current Medications Acetaminophen (Tylenol 325mg Tab) 650 mg PO Q6H PRN PRN Reason: Pain, moderate (4-7) Last Admin: 05/30/18 16:19 Dose: 650 mg Apixaban (Eliquis) 2.5 mg PO BID [facility]; Protocol Last Admin: 05/31/18 11:25 Dose: 2.5 mg Aspirin (Ecotrin) 81 mg PO DAILY [facility] Last Admin: 05/31/18 11:25 Dose: 81 mg Atenolol (Tenormin) 25 mg PO BID [facility] Last Admin: 05/31/18 11:25 Dose: 25 mg Atorvastatin Calcium (Lipitor) 20 mg PO DIN [facility] Last Admin: 05/30/18 17:32 Dose: 20 mg Digoxin (Lanoxin) 0.25 mg PO 1400 [facility] Last Admin: 05/30/18 15:33 Dose: 0.25 mg Enoxaparin Sodium (Lovenox) 60 mg SC Q12H [facility]; Protocol Last Admin: 05/19/18 21:00 Dose: Not Given Mirtazapine (Remeron) 15 mg PO HS [facility] Last Admin: 05/30/18 21:15 Dose: Not Given Ondansetron HCl (Zofran Inj) 4 mg IVP Q6H PRN PRN Reason: Nausea/Vomiting Pantoprazole Sodium (Protonix Inj) 40 mg IVP DAILY [facility] Last Admin: 05/31/18 11:25 Dose: 40 mg - Labs Labs: 05/31/18 07:00 05/31/18 07:00 PT 16.7 SECONDS (9.4-12.5) H 05/31/18 07:00 INR 1.44 05/31/18 07:00 APTT 35.2 Seconds (25.1-36.5) 05/16/18 19:12 Attending/Attestation - Attestation I have personally seen and examined this patient.: Yes I have fully participated in the care of the patient.: Yes I have reviewed all pertinent clinical information, including history, physical exam and plan: Yes
[2018-05-26] MEDS ORDERED: Mupirocin 2% Ointment 15 GM TUBE TOP SCH (10:00)
[2018-05-26] MEDS ORDERED: Fat Emulsion 20% IV 250 ML IV SCH (11:15)
--- NOTE | 2018-05-26 11:49 | CP.PCM.PN ---
Subjective - Date & Time of Evaluation Date of Evaluation: 05/26/18 Time of Evaluation: 08:00 - Subjective Subjective: Patient states she is feeling better, no nausea or vomiting, no abdominal pain, starting to have better PO intake, taking oatmeal without issues, states that her daughter gave her chicken soup the other day and she tolerated it, no diar keenan, no fever or chills, still with pain in the right knee but a little less as per patient. Objective - Vital Signs/Intake and Output Vital Signs (last 24 hours): Temp Pulse Resp BP Pulse Ox 98.1 F 70 18 136/76 98 05/25/18 06:00 05/25/18 06:00 05/25/18 06:00 05/25/18 10:37 05/25/18 06:00 - Medications Medications: Current Medications Acetaminophen (Tylenol 325 Mg Supp) 325 mg RC Q6H PRN PRN Reason: Pain, moderate (4-7) Aspirin (Ecotrin) 81 mg PO DAILY [facility] Last Admin: 05/25/18 10:38 Dose: 81 mg Atenolol (Tenormin) 25 mg PO BID [facility] Last Admin: 05/25/18 10:37 Dose: 25 mg Digoxin (Lanoxin) 0.25 mg PO 1400 [facility] Enoxaparin Sodium (Lovenox) 60 mg SC Q12H [facility]; Protocol Last Admin: 05/19/18 21:00 Dose: Not Given Multivitamins/Vitamin C 10 ml/Amino Acids/Electrolytes/Dextrose 2,010 mls @ 83 mls/hr IV .Q24H [facility] Stop: 05/27/18 11:16 Fat Emulsion Intravenous (Intralipid 20%) 250 mls @ 21 mls/hr IV MWF@1115 [facility] Neomycin/Polymyxin/Bacitracin (Neosporin Triple Antibiotic Oint) 1 gm TOP DAILY [facility] Last Admin: 05/25/18 10:38 Dose: 1 applic Pantoprazole Sodium (Protonix Inj) 40 mg IVP DAILY [facility] Last Admin: 05/25/18 10:37 Dose: 40 mg Warfarin Sodium (Coumadin) 8 mg PO 1800 [facility] Last Admin: 05/24/18 17:01 Dose: Not Given - Labs Labs: 05/25/18 07:45 05/25/18 07:45 PT 13.1 SECONDS (9.4-12.5) H 05/24/18 06:00 INR 1.14 05/24/18 06:00 APTT 35.2 Seconds (25.1-36.5) 05/16/18 19:12 - Constitutional Appears: Non-toxic, Chronically Ill - Head Exam Head Exam: NORMAL INSPECTION - Extremities Exam Additional comments: right knee with immobilizer in place, left upper arm IV line intact, clean, no bleeding, no surrounding erythema noted Assessment and Plan - Assessment and Plan (Free Text) Plan: Assessment S/P nausea and vomiting with lactic acidosis, R/O due to meds R/O functional gastrointestinal issue - lactic acidosis has trended down and patient continues to improve clinically - patient without vomiting currently, tolerating some PO intake and patient continues to be awake and alert 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 Hernandez previously, she already has had 6 weeks of antibiotics (since 04/08/2018) and there is concern about the thrombocytopenia, nausea and vomiting - the thrombocytopenia is probably multifactorial (including meds such as Zyvox and chronic illness - w e are continuing to monitor platelet count and Hematology is on-board, patient also has low Hgb and there may be myelosuppression) - the platelet count is slowly going up (today it is 102k) - discussed this also with Dr. Watson and we will monitor the CRP - the CRP is still elevated but trended down to 33.8 from 53.8 on 05/13/2018 - local right knee wound infection and with local wound care and dressing changes, the CRP may be elevated due to this and not necessarily because of the inflammation in the knee joint - superficial wound cultures growing Pantoea which is very sensitive to many antibiotics - we currently have ordered Bactroban, Neomycin, Polymixin and Bacitracin ointment topically for the wound and the patient is getting local wound care by Podiatry - discussed with Dr. Oliva and according to them the wound is improving everyday - Dr. Oliva and I both agree to keep off systemic antibiotics since the wound is slowly getting better daily with local wound care and topical a ntibiotics, the patient does not have leukocytosis or fevers (i.e. no signs of systemic infection) - as per Dr. Oliva, the wound needs to eventually be debrided but holding off on that for now because of the low platelets - patient continues to get clinically better day by day discussed with Dr. Watson, and would only consider putting prosthetic knee joint back if she has good nutrition and the right knee wound has healed may consider systemic antibiotics to cover the right knee wound if there are signs of systemic infection (leukocytosis, fevers, worsening of wound) lactic acid levels have trended down, patient continued on IV fluids and parenteral nutrition - patient needs to continue supplemental nutrition so that her right knee is to heal properly; she is getting some PO intake will continue to monitor clinically overall prognosis is poor
--- NOTE | 2018-05-26 13:19 | CP.PCM.PN ---
Subjective - Date & Time of Evaluation Date of Evaluation: 05/26/18 Time of Evaluation: 09:00 - Subjective Subjective: Praveen Oliveros, PGY-1 Progress Note for Hospitalist Service Patient seen and evaluated at bedside. No acute events overnight. No acute com plaints currently. Patient states she is tolerating her oral diet as she had chicken soup without issue. Denies nausea, vomiting, abdominal pain. Objective - Vital Signs/Intake and Output Vital Signs (last 24 hours): Temp Pulse Resp BP Pulse Ox 98 F 77 20 136/57 L 98 05/26/18 06:00 05/26/18 06:00 05/26/18 06:00 05/26/18 06:00 05/26/18 06:00 - Medications Medications: Current Medications Acetaminophen (Tylenol 325mg Tab) 650 mg PO Q6H PRN PRN Reason: Pain, moderate (4-7) Last Admin: 05/26/18 06:16 Dose: 650 mg Apixaban (Eliquis) 2.5 mg PO BID [facility]; Protocol Aspirin (Ecotrin) 81 mg PO DAILY [facility] Last Admin: 05/26/18 10:09 Dose: 81 mg Atenolol (Tenormin) 25 mg PO BID [facility] Last Admin: 05/26/18 10:09 Dose: 25 mg Atorvastatin Calcium (Lipitor) 20 mg PO DIN [facility] Last Admin: 05/25/18 17:06 Dose: 20 mg Digoxin (Lanoxin) 0.25 mg PO 1400 [facility] Last Admin: 05/25/18 14:17 Dose: 0.25 mg Enoxaparin Sodium (Lovenox) 60 mg SC Q12H [facility]; Protocol Last Admin: 05/19/18 21:00 Dose: Not Given Multivitamins/Vitamin C 10 ml/Amino Acids/Electrolytes/Dextrose 2,010 mls @ 83 mls/hr IV .Q24H [facility] Stop: 05/27/18 11:16 Last Admin: 05/25/18 12:19 Dose: 83 mls/hr Fat Emulsion Intravenous (Intralipid 20%) 250 mls @ 21 mls/hr IV MWF@1115 [facility] Mupirocin (Bactroban Ointment) 0 gm TOP BID [facility] Neomycin/Polymyxin/Bacitracin (Neosporin Triple Antibiotic Oint) 1 gm TOP DAILY [facility] Last Admin: 05/25/18 10:38 Dose: 1 applic Pantoprazole Sodium (Protonix Inj) 40 mg IVP DAILY [facility] Last Admin: 05/26/18 10:09 Dose: 40 mg - Labs Labs: 05/26/18 07:40 05/26/18 07:40 PT 12.7 SECONDS (9.4-12.5) H 05/26/18 06:15 INR 1.10 05/26/18 06:15 APTT 35.2 Seconds (25.1-36.5) 05/16/18 19:12 - Additional Findings Additional findings: - Constitutional Appears: Non-toxic, No Acute Distress, pallor - Head Exam Head Exam: ATRAUMATIC, NORMAL INSPECTION, NORMOCEPHALIC - Eye Exam Eye Exam: EOMI, Normal appearance - ENT Exam ENT Exam: Mucous Membranes Moist, Normal Exam - Neck Exam Neck Exam: Full ROM, Normal Inspection - Respiratory Exam Respiratory Exam: Clear to Ausculation Bilateral, NORMAL BREATHING PATTERN. absent: Accessory Muscle Use, Rales, Rhonchi, Wheezes, Respiratory Distress, Stridor - Cardiovascular Exam Cardiovascular Exam: REGULAR RHYTHM, +S1, +S2 - GI/Abdominal Exam GI & Abdominal Exam: Soft, Normal Bowel Sounds. absent: Distended, Firm, Guarding, Rigid, Tenderness, Organomegaly, Rebound - Extremities Exam Extremities Exam: Normal Capillary Refill, Pedal Edema. 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 PO intake improving, continuing to taper PPN. PLT count improving, can resume anticoagulation per Heme/Onc. Plan: Failure to thrive, dysphagia -Continue to taper PPN today until pt has adequate PO intake -Patient's family refusing PEG feeding at this time, per mother's wishes -Recent completion of 6 week course of Abx: zyvox and daptomycin discontinued -CT chest: no acute findings -CT head: no acute findings -EGD (04/2018): no esophageal pathology or signs of gastric outlet obstruction -repeat speech/swallow eval (05/23) -[employer] HELPER recommends trial puree consistency diet with extra gravy and thin liquids -aspiration/reflux precautions -continue TPN until Pt. demonstrates a good percentage of intake with p.o. meals -GI recs appreciated -dysphagia, multifactorial - motility dysfunction, deconditioning -improved mentation and alertness -repeat speech evaluation recommends puree consistency, thin liquids -pt tolerating diet with no issues per nursing -neurology recommendation- no signs of neuromuscular disorder -on TPN, recommend to taper off TPN as po intake increases -Neuro recs appreciated - no signs of NM disorder -Palliative recs: Jeannette LEVIN and I met with patients daughter's Isabel and Marii (both POA's). Family aware of mothers medical situation and poor prognosis. Benefits and burdens of feeding tube discussed at length. Daughters refusing PEG tube, in accordance of mother's AD wishes . Hospice services explained in detail. Questions answered. Daughters conflicted, state they are unable to stay home from their jobs in order to care for their mother. Daughter states that mother does not have the finances to pay for 24 hour aide or go to [place] facility. [facility] offered. Family declined,claim they do not have finances for this either. Family requesting to speak with SW regarding medicaid application. 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 Mi) appreciated -CRP elevated b/c patient is ill; not an accurate assessment of the knee inflammation -will get another CRP -superficial wound cx: pantoea sensitive to many abx: giving bactroban, poly mixin, bacitracin ointment -c/w local wound care per podiatry Atrial fibrillation - Digoxin 0.8 (05/16) - Atenolol 25 mg PO daily - INR 1.10 today, patient refused Warfarin yesterday - begin Eliquis 2.5 mg BID today CAD - aspirin - lipitor 20 mg PPx, Diet, Dispostion -DVT ppx: lovenox on hold -Diet: pureed, thin liquid, extra gravy -Dispo: patient clinically improving, tolerating po intake. Continue to taper PPN as PO intake increases. Eliquis began today. Social work: Daughter states that as patient is doing much better, she refused to talk about, Medicaid application/status, hospice and JAKE and stated that when patient is better she will go back home. Patient seen, case reviewed and plan approved by Dr. Ellis. Praveen Oliveros, PGY-1
[2018-05-26] MEDS: Digoxin 250 mcg (0.25 mg) Tab PO SCH (14:48)
--- NOTE | 2018-05-26 15:22 | CP.PCM.PN ---
<Sunni Rangel - Last Filed: 05/26/18 15:19> Subjective - Date & Time of Evaluation Date of Evaluation: 05/26/18 Time of Evaluation: 15:20 - Subjective Subjective: Gastroenterology Fellow/PGY6 Progress Note Patient in good spirits. Tolerating puree diet. Denies abdominal pain. A 12- point review of systems negative except for as above. Objective - Vital Signs/Intake and Output Vital Signs (last 24 hours): Temp Pulse Resp BP Pulse Ox 98 F 77 20 136/57 L 98 05/26/18 06:00 05/26/18 06:00 05/26/18 06:00 05/26/18 06:00 05/26/18 06:00 - Medications Medications: Current Medications Acetaminophen (Tylenol 325mg Tab) 650 mg PO Q6H PRN PRN Reason: Pain, moderate (4-7) Last Admin: 05/26/18 06:16 Dose: 650 mg Apixaban (Eliquis) 2.5 mg PO BID [facility]; Protocol Last Admin: 05/26/18 14:47 Dose: 2.5 mg Aspirin (Ecotrin) 81 mg PO DAILY [facility] Last Admin: 05/26/18 10:09 Dose: 81 mg Atenolol (Tenormin) 25 mg PO BID [facility] Last Admin: 05/26/18 10:09 Dose: 25 mg Atorvastatin Calcium (Lipitor) 20 mg PO DIN [facility] Last Admin: 05/25/18 17:06 Dose: 20 mg Digoxin (Lanoxin) 0.25 mg PO 1400 [facility] Last Admin: 05/26/18 14:48 Dose: 0.25 mg Enoxaparin Sodium (Lovenox) 60 mg SC Q12H [facility]; Protocol Last Admin: 05/19/18 21:00 Dose: Not Given Multivitamins/Vitamin C 10 ml/Amino Acids/Electrolytes/Dextrose 2,010 mls @ 83 mls/hr IV .Q24H [facility] Stop: 05/27/18 11:16 Last Admin: 05/26/18 13:41 Dose: 83 mls/hr Fat Emulsion Intravenous (Intralipid 20%) 250 mls @ 21 mls/hr IV MWF@1115 [facility] Last Admin: 05/26/18 13:41 Dose: 21 mls/hr Mupirocin (Bactroban Ointment) 0 gm TOP BID [facility] Neomycin/Polymyxin/Bacitracin (Neosporin Triple Antibiotic Oint) 1 gm TOP DAILY [facility] Last Admin: 05/25/18 10:38 Dose: 1 applic Pantoprazole Sodium (Protonix Inj) 40 mg IVP DAILY [facility] Last Admin: 05/26/18 10:09 Dose: 40 mg - Labs Labs: 05/26/18 07:40 05/26/18 07:40 PT 12.7 SECONDS (9.4-12.5) H 05/26/18 06:15 INR 1.10 05/26/18 06:15 APTT 35.2 Seconds (25.1-36.5) 05/16/18 19:12 - Constitutional Appears: Non-toxic, No Acute Distress - Head Exam Head Exam: ATRAUMATIC, NORMOCEPHALIC - Eye Exam Eye Exam: EOMI, PERRL. absent: Scleral icterus Pupil Exam: PERRL. absent: Miosis, Mydriatic - ENT Exam ENT Exam: Mucous Membranes Moist, Normal Oropharynx - Neck Exam Neck Exam: Full ROM, Normal Inspection - Respiratory Exam Respiratory Exam: Clear to Ausculation Bilateral. absent: Rales, Rhonchi, Wheezes - Cardiovascular Exam Cardiovascular Exam: RRR, +S1, +S2. absent: Gallop, Rubs - GI/Abdominal Exam GI & Abdominal Exam: Soft, Normal Bowel Sounds. absent: Distended, Firm, Guarding, Rigid, Tenderness, Organomegaly, Rebound - Extremities Exam Extremities Exam: Normal Inspection. 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 Prior EGD 04/2018 showed gastritis. No prior colonoscopy. Plan: -05/25 speech evaluation- puree diet, thin liquids -continue to monitor swallowing function -deconditioning improving -ID and Podiatry managing -will follow clinical course <SharifHoward Singleton - Last Filed: 05/27/18 23:53> Objective - Vital Signs/Intake and Output Vital Signs (last 24 hours): Temp Pulse Resp BP Pulse Ox 97.4 F L 81 20 125/52 L 100 05/27/18 14:00 05/27/18 14:00 05/27/18 14:00 05/27/18 14:00 05/27/18 14:00 - Medications Medications: Current Medications Acetaminophen (Tylenol 325mg Tab) 650 mg PO Q6H PRN PRN Reason: Pain, moderate (4-7) Last Admin: 05/26/18 06:16 Dose: 650 mg Apixaban (Eliquis) 2.5 mg PO BID [facility]; Protocol Last Admin: 05/27/18 18:13 Dose: 2.5 mg Aspirin (Ecotrin) 81 mg PO DAILY [facility] Last Admin: 05/27/18 10:28 Dose: 81 mg Atenolol (Tenormin) 25 mg PO BID [facility] Last Admin: 05/27/18 18:13 Dose: 25 mg Atorvastatin Calcium (Lipitor) 20 mg PO DIN [facility] Last Admin: 05/27/18 18:12 Dose: 20 mg Digoxin (Lanoxin) 0.25 mg PO 1400 [facility] Last Admin: 05/27/18 15:45 Dose: 0.25 mg Enoxaparin Sodium (Lovenox) 60 mg SC Q12H [facility]; Protocol Last Admin: 05/19/18 21:00 Dose: Not Given Mirtazapine (Remeron) 15 mg PO HS [facility] Last Admin: 05/27/18 11:57 Dose: Not Given Pantoprazole Sodium (Protonix Inj) 40 mg IVP DAILY [facility] Last Admin: 05/27/18 10:29 Dose: 40 mg - Labs Labs: 05/27/18 06:30 05/27/18 06:30 PT 14.7 SECONDS (9.4-12.5) H 05/27/18 06:30 INR 1.27 05/27/18 06:30 APTT 35.2 Seconds (25.1-36.5) 05/16/18 19:12 Attending/Attestation - Attestation I have personally seen and examined this patient.: Yes I have fully participated in the care of the patient.: Yes I have reviewed all pertinent clinical information, including history, physical exam and plan: Yes Notes (Text): p 05/27/18 23:53
--- NOTE | 2018-05-26 23:09 | CP.PCM.PN ---
Subjective - Date & Time of Evaluation Date of Evaluation: 05/24/18 Time of Evaluation: 15:00 - Subjective Subjective: Feeling better Objective - Vital Signs/Intake and Output Vital Signs (last 24 hours): Temp Pulse Resp BP Pulse Ox 98.5 F 83 18 141/79 96 05/26/18 23:02 05/26/18 23:02 05/26/18 23:02 05/26/18 23:02 05/26/18 23:02 Intake and Output: 05/26/18 05/27/18 18:59 06:59 Intake Total 1292 Balance 1292 - Medications Medications: Current Medications Acetaminophen (Tylenol 325mg Tab) 650 mg PO Q6H PRN PRN Reason: Pain, moderate (4-7) Last Admin: 05/26/18 06:16 Dose: 650 mg Apixaban (Eliquis) 2.5 mg PO BID [facility]; Protocol Last Admin: 05/26/18 18:38 Dose: 2.5 mg Aspirin (Ecotrin) 81 mg PO DAILY [facility] Last Admin: 05/26/18 10:09 Dose: 81 mg Atenolol (Tenormin) 25 mg PO BID [facility] Last Admin: 05/26/18 18:38 Dose: 25 mg Atorvastatin Calcium (Lipitor) 20 mg PO DIN [facility] Last Admin: 05/26/18 18:39 Dose: 20 mg Digoxin (Lanoxin) 0.25 mg PO 1400 [facility] Last Admin: 05/26/18 14:48 Dose: 0.25 mg Enoxaparin Sodium (Lovenox) 60 mg SC Q12H [facility]; Protocol Last Admin: 05/19/18 21:00 Dose: Not Given Multivitamins/Vitamin C 10 ml/Amino Acids/Electrolytes/Dextrose 2,010 mls @ 83 mls/hr IV .Q24H [facility] Stop: 05/27/18 11:16 Last Admin: 05/26/18 13:41 Dose: 83 mls/hr Fat Emulsion Intravenous (Intralipid 20%) 250 mls @ 21 mls/hr IV MWF@1115 [facility] Last Admin: 05/26/18 13:41 Dose: 21 mls/hr Pantoprazole Sodium (Protonix Inj) 40 mg IVP DAILY [facility] Last Admin: 05/26/18 10:09 Dose: 40 mg - Labs Labs: 05/26/18 07:40 05/26/18 07:40 PT 12.7 SECONDS (9.4-12.5) H 05/26/18 06:15 INR 1.10 05/26/18 06:15 APTT 35.2 Seconds (25.1-36.5) 05/16/18 19:12 - Head Exam Head Exam: ATRAUMATIC - Eye Exam Eye Exam: Normal appearance - ENT Exam ENT Exam: Mucous Membranes Dry - Respiratory Exam Respiratory Exam: NORMAL BREATHING PATTERN - Cardiovascular Exam Cardiovascular Exam: +S1, +S2 - GI/Abdominal Exam GI & Abdominal Exam: Normal Bowel Sounds Assessment and Plan (1) Thrombocytopenia Assessment & Plan: improving suspect medication induced; Zyvox can cause cytopenias Zyvox has been discontinued agree with holding antiplatelet and coumadin for now; okay to restart when plt > 50,000 of note, pt will have plt dysfunction from uremia improving fibrinogen; no active infection to suggest DIC - ? stunned liver function Status: Acute (2) Anemia Assessment & Plan: hypoproliferative erythroid response anemia of chronic disease no iron/b12/folate deficiency given a dose of erythropoietin s/p PRBC transfusion Status: Acute (3) Coagulopathy Assessment & Plan: low fibrinogen but improved ? stunned synthetic function of liver Status: Acute
--- NOTE | 2018-05-26 23:10 | CP.PCM.PN ---
Subjective - Date & Time of Evaluation Date of Evaluation: 05/26/18 Time of Evaluation: 19:00 - Subjective Subjective: Feeling better, tolerating more PO. Objective - Vital Signs/Intake and Output Vital Signs (last 24 hours): Temp Pulse Resp BP Pulse Ox 98.5 F 83 18 141/79 96 05/26/18 23:02 05/26/18 23:02 05/26/18 23:02 05/26/18 23:02 05/26/18 23:02 Intake and Output: 05/26/18 05/27/18 18:59 06:59 Intake Total 1292 Balance 1292 - Medications Medications: Current Medications Acetaminophen (Tylenol 325mg Tab) 650 mg PO Q6H PRN PRN Reason: Pain, moderate (4-7) Last Admin: 05/26/18 06:16 Dose: 650 mg Apixaban (Eliquis) 2.5 mg PO BID [facility]; Protocol Last Admin: 05/26/18 18:38 Dose: 2.5 mg Aspirin (Ecotrin) 81 mg PO DAILY [facility] Last Admin: 05/26/18 10:09 Dose: 81 mg Atenolol (Tenormin) 25 mg PO BID [facility] Last Admin: 05/26/18 18:38 Dose: 25 mg Atorvastatin Calcium (Lipitor) 20 mg PO DIN [facility] Last Admin: 05/26/18 18:39 Dose: 20 mg Digoxin (Lanoxin) 0.25 mg PO 1400 [facility] Last Admin: 05/26/18 14:48 Dose: 0.25 mg Enoxaparin Sodium (Lovenox) 60 mg SC Q12H [facility]; Protocol Last Admin: 05/19/18 21:00 Dose: Not Given Multivitamins/Vitamin C 10 ml/Amino Acids/Electrolytes/Dextrose 2,010 mls @ 83 mls/hr IV .Q24H [facility] Stop: 05/27/18 11:16 Last Admin: 05/26/18 13:41 Dose: 83 mls/hr Fat Emulsion Intravenous (Intralipid 20%) 250 mls @ 21 mls/hr IV MWF@1115 [facility] Last Admin: 05/26/18 13:41 Dose: 21 mls/hr Pantoprazole Sodium (Protonix Inj) 40 mg IVP DAILY [facility] Last Admin: 05/26/18 10:09 Dose: 40 mg - Labs Labs: 05/26/18 07:40 05/26/18 07:40 PT 12.7 SECONDS (9.4-12.5) H 05/26/18 06:15 INR 1.10 05/26/18 06:15 APTT 35.2 Seconds (25.1-36.5) 05/16/18 19:12 - Head Exam Head Exam: ATRAUMATIC - Eye Exam Eye Exam: Normal appearance - ENT Exam ENT Exam: Mucous Membranes Dry - Respiratory Exam Respiratory Exam: NORMAL BREATHING PATTERN - Cardiovascular Exam Cardiovascular Exam: +S1, +S2 - GI/Abdominal Exam GI & Abdominal Exam: Normal Bowel Sounds Assessment and Plan (1) Thrombocytopenia Assessment & Plan: improving suspect medication induced; Zyvox can cause cytopenias Zyvox has been discontinued agree with holding antiplatelet and coumadin for now; okay to restart when plt > 50,000 of note, pt will have plt dysfunction from uremia improving fibrinogen; no active infection to suggest DIC - ? stunned liver function Status: Acute (2) Anemia Assessment & Plan: hypoproliferative erythroid response anemia of chronic disease no iron/b12/folate deficiency given a dose of erythropoietin s/p PRBC transfusion Status: Acute (3) Coagulopathy Assessment & Plan: nutritional low fibrinogen but improved ? stunned synthetic function of liver Status: Acute
[2018-05-27 07:00] LABS: INR 1.27; PROTHROMBIN TIME 14.7 SECONDS (9.4-12.5)
[2018-05-27 07:01] LABS: BASO # 0.01 K/mm3 (0.0-2.0); BASO % 0.1 % (0.0-3.0); EOS % 0.4 % (1.5-5.0); GRAN # 6.35 (1.4-6.5); GRAN % 83.8 % (50.0-68.0); HEMOGLOBIN 8.1 g/dL (12.0-16.0); LYMPH # 0.6 (1.2-3.4); LYMPH % 8.2 % (22.0-35.0); MEAN CELL VOLUME 87.6 fl (80.0-105.0); MEAN CORPUSCULAR HEMOGLOBIN 28.6 pg (25.0-35.0); MEAN CORPUSCULAR HGB CONC 32.7 g/dl (31.0-37.0); MEAN PLATELET VOLUME 11.4 fl (7.0-11.0); MONO # 0.6 (0.1-0.6); MONO % 7.5 % (1.0-6.0); RBC 2.83 10^6/uL (3.5-6.1); RED CELL DISTRIBUTION WIDTH 19.1 % (11.5-14.5); WHITE BLOOD COUNT 7.6 10^3/uL (4.5-11.0)
[2018-05-27 07:23] LABS: ALB/GLOB RATIO 0.9 (1.1-1.8); ALBUMIN 2.7 g/dL (3.0-4.8); ALT/SGPT 57 U/L (7-56); AST/SGOT 42 U/L (14-36); BLOOD UREA NITROGEN 19 mg/dL (7-21); CALCIUM 8.1 mg/dL (8.4-10.5); GFR NON-AFRICAN AMERICAN > 60
--- NOTE | 2018-05-27 10:07 | CP.PCM.PN ---
Subjective - Date & Time of Evaluation Date of Evaluation: 05/27/18 Time of Evaluation: 07:50 - Subjective Subjective: Praveen Oliveros, PGY-1 Progress Note for Hospitalist Services Patient seen and evaluated at bedside. No acute events reported overnight. P atient states she is tolerating diet. Patient had a bowel movement yesterday. Otherwise, denies chest pain, palpitations, leg pain, shortness of breath. Objective - Vital Signs/Intake and Output Vital Signs (last 24 hours): Temp Pulse Resp BP Pulse Ox 98 F 71 20 162/86 H 97 05/27/18 06:00 05/27/18 06:00 05/27/18 06:00 05/27/18 06:00 05/27/18 06:00 Intake and Output: 05/27/18 05/27/18 06:59 18:59 Intake Total 420 Output Total 500 Balance -80 - Medications Medications: Current Medications Acetaminophen (Tylenol 325mg Tab) 650 mg PO Q6H PRN PRN Reason: Pain, moderate (4-7) Last Admin: 05/26/18 06:16 Dose: 650 mg Apixaban (Eliquis) 2.5 mg PO BID [facility]; Protocol Last Admin: 05/26/18 18:38 Dose: 2.5 mg Aspirin (Ecotrin) 81 mg PO DAILY [facility] Last Admin: 05/26/18 10:09 Dose: 81 mg Atenolol (Tenormin) 25 mg PO BID [facility] Last Admin: 05/26/18 18:38 Dose: 25 mg Atorvastatin Calcium (Lipitor) 20 mg PO DIN [facility] Last Admin: 05/26/18 18:39 Dose: 20 mg Digoxin (Lanoxin) 0.25 mg PO 1400 [facility] Last Admin: 05/26/18 14:48 Dose: 0.25 mg Enoxaparin Sodium (Lovenox) 60 mg SC Q12H [facility]; Protocol Last Admin: 05/19/18 21:00 Dose: Not Given Multivitamins/Vitamin C 10 ml/Amino Acids/Electrolytes/Dextrose 2,010 mls @ 83 mls/hr IV .Q24H [facility] Stop: 05/27/18 11:16 Last Admin: 05/26/18 13:41 Dose: 83 mls/hr Fat Emulsion Intravenous (Intralipid 20%) 250 mls @ 21 mls/hr IV MWF@1115 [facility] Last Admin: 05/26/18 13:41 Dose: 21 mls/hr Pantoprazole Sodium (Protonix Inj) 40 mg IVP DAILY [facility] Last Admin: 05/26/18 10:09 Dose: 40 mg - Labs Labs: 05/27/18 06:30 05/27/18 06:30 PT 14.7 SECONDS (9.4-12.5) H 05/27/18 06:30 INR 1.27 05/27/18 06:30 APTT 35.2 Seconds (25.1-36.5) 05/16/18 19:12 - Additional Findings Additional findings: - Constitutional Appears: Non-toxic, No Acute Distress, Pallor - Head Exam Head Exam: ATRAUMATIC, NORMAL INSPECTION, NORMOCEPHALIC - Eye Exam Eye Exam: EOMI, Normal appearance - ENT Exam ENT Exam: Mucous Membranes Moist, Normal Exam - Neck Exam Neck Exam: Full ROM, Normal Inspection - Respiratory Exam Respiratory Exam: Clear to Ausculation Bilateral, NORMAL BREATHING PATTERN. absent: Accessory Muscle Use, Rales, Rhonchi, Wheezes, Respiratory Distress, Stridor - Cardiovascular Exam Cardiovascular Exam: REGULAR RHYTHM, +S1, +S2 - GI/Abdominal Exam GI & Abdominal Exam: Soft, Normal Bowel Sounds. absent: Distended, Firm, Guarding, Rigid, Tenderness, Organomegaly, Rebound - Extremities Exam Extremities Exam: Normal Capillary Refill, Pedal Edema. 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 PO intake improving, continuing to taper PPN. PLT count improving, on Eliquis. No sign of bleeding. Advancing diet to advanced bite size. Will evaluate her tolerance of dysphagia diet. Plan: Failure to thrive, dysphagia -Continue to taper PPN today until pt has adequate PO intake -Patient's family refusing PEG feeding at this time, per mother's wishes -Recent completion of 6 week course of Abx: zyvox and daptomycin discontinued -CT chest: no acute findings -CT head: no acute findings -EGD (04/2018): no esophageal pathology or signs of gastric outlet obstruction -repeat speech/swallow eval (05/23) -SWEEPING COMPOUND BLENDER recommends trial puree consistency diet with extra gravy and thin liquids -aspiration/reflux precautions -continue TPN until Pt. demonstrates a good percentage of intake with p.o. meals -GI recs appreciated -dysphagia, multifactorial - motility dysfunction, deconditioning -improved mentation and alertness -pt tolerating diet with no issues per nursing - currently dysphagia modified consistency diet with advanced bite size pieces with thin liquid - f/u Casing Flusher recommendations -neurology recommendation- no signs of neuromuscular disorder -on TPN, recommend to taper off TPN as po intake increases -Neuro recs appreciated - no signs of NM disorder -Palliative recs: Jeannette LEVIN and I met with patients daughter's Isabel and Marii (both POA's). Family aware of mothers medical situation and poor prognosis. Benefits and burdens of feeding tube discussed at length. Daughters refusing PEG tube, in accordance of mother's AD wishes . Hospice services explained in detail. Questions answered. Daughters conflicted, state they are unable to stay home from their jobs in order to care for their mother. Daughter states that mother does not have the finances to pay for 24 hour aide or go to [place] facility. Father [facility] facility offered. Family declined,claim they do not have finances for this either. Family requesting to speak with regarding medicaid application. 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 Mi) appreciated -CRP elevated b/c patient is ill; not an accurate assessment of the knee inflammation -will get another CRP -superficial wound cx: pantoea sensitive to many abx: giving bactroban, polymixin, bacitracin ointment -Podiatry: Podiatry will re-evaluate whether patient can be taken to the OR once patient's platelet count has been stabilized. Podiatry will attempt to place patient in Hyperbaric Oxygen Therapy. Ortho: Continue per ID recs. For now, continue local wound care. Will discuss with Dr Oliva possibility of hyperbaric given that patient is less debilitat ed. Atrial fibrillation - Digoxin 0.8 (05/16) - Atenolol 25 mg PO daily - begin Eliquis 2.5 mg BID today CAD - Aspirin - lipitor 20 mg PPx, Diet, Dispostion -DVT ppx: lovenox on hold -Diet: pureed, thin liquid, extra gravy -Dispo: patient clinically improving, tolerating po intake. Continue to taper PPN as PO intake increases. Eliquis began today. Social work: Daughter states that as patient is doing much better, she will go back home. Medical team recommended rehabiliation to her. Daughter admits to currently being ill prepared to have patient return home as she does not have appropriate equipment yet. Social work/Case management recommendations appreciated. Patient seen, case reviewed and plan approved by Dr. Ellis. Praveen Oliveros, PGY-1
--- NOTE | 2018-05-27 11:20 | CP.PCM.PN ---
Subjective - Date & Time of Evaluation Date of Evaluation: 05/27/18 Time of Evaluation: 11:11 - Subjective Subjective: Pt awake, alert. Mental status normal. Denies significant pain. Afebrile,VSS R knee: incision improving but still with some necrotic edges no significant drainage Pt clinically improving. No evidence of sepsis. Pt does have elevated CRP and sed rate since off antibiotics. Will discuss with ID service plan. For now, continue local wound care. Will discuss with Dr Oliva possibility of hyperbaric given that patient is less debilitated. Objective - Vital Signs/Intake and Output Vital Signs (last 24 hours): Temp Pulse Resp BP Pulse Ox 98 F 71 20 162/86 H 97 05/27/18 06:00 05/27/18 10:28 05/27/18 06:00 05/27/18 10:28 05/27/18 06:00 Intake and Output: 05/27/18 05/27/18 06:59 18:59 Intake Total 420 Output Total 500 Balance -80 - Medications Medications: Current Medications Acetaminophen (Tylenol 325mg Tab) 650 mg PO Q6H PRN PRN Reason: Pain, moderate (4-7) Last Admin: 05/26/18 06:16 Dose: 650 mg Apixaban (Eliquis) 2.5 mg PO BID [facility]; Protocol Last Admin: 05/27/18 10:28 Dose: 2.5 mg Aspirin (Ecotrin) 81 mg PO DAILY [facility] Last Admin: 05/27/18 10:28 Dose: 81 mg Atenolol (Tenormin) 25 mg PO BID [facility] Last Admin: 05/27/18 10:28 Dose: 25 mg Atorvastatin Calcium (Lipitor) 20 mg PO DIN [facility] Last Admin: 05/26/18 18:39 Dose: 20 mg Digoxin (Lanoxin) 0.25 mg PO 1400 [facility] Last Admin: 05/26/18 14:48 Dose: 0.25 mg Enoxaparin Sodium (Lovenox) 60 mg SC Q12H [facility]; Protocol Last Admin: 05/19/18 21:00 Dose: Not Given Multivitamins/Vitamin C 10 ml/Amino Acids/Electrolytes/Dextrose 2,010 mls @ 83 mls/hr IV .Q24H [facility] Stop: 05/27/18 11:16 Last Admin: 05/26/18 13:41 Dose: 83 mls/hr Fat Emulsion Intravenous (Intralipid 20%) 250 mls @ 21 mls/hr IV MWF@1115 [facility] Last Admin: 05/26/18 13:41 Dose: 21 mls/hr Pantoprazole Sodium (Protonix Inj) 40 mg IVP DAILY [facility] Last Admin: 05/27/18 10:29 Dose: 40 mg - Labs Labs: 05/27/18 06:30 05/27/18 06:30 PT 14.7 SECONDS (9.4-12.5) H 05/27/18 06:30 INR 1.27 05/27/18 06:30 APTT 35.2 Seconds (25.1-36.5) 05/16/18 19:12
--- NOTE | 2018-05-27 12:24 | CP.PCM.PN ---
Subjective - Date & Time of Evaluation Date of Evaluation: 05/27/18 Time of Evaluation: 12:10 - Subjective Subjective: Awake, tolerating PO. Objective - Vital Signs/Intake and Output Vital Signs (last 24 hours): Temp Pulse Resp BP Pulse Ox 98 F 71 20 162/86 H 97 05/27/18 06:00 05/27/18 10:28 05/27/18 06:00 05/27/18 10:28 05/27/18 06:00 Intake and Output: 05/27/18 05/27/18 06:59 18:59 Intake Total 420 Output Total 500 Balance -80 - Medications Medications: Current Medications Acetaminophen (Tylenol 325mg Tab) 650 mg PO Q6H PRN PRN Reason: Pain, moderate (4-7) Last Admin: 05/26/18 06:16 Dose: 650 mg Apixaban (Eliquis) 2.5 mg PO BID [facility]; Protocol Last Admin: 05/27/18 10:28 Dose: 2.5 mg Aspirin (Ecotrin) 81 mg PO DAILY [facility] Last Admin: 05/27/18 10:28 Dose: 81 mg Atenolol (Tenormin) 25 mg PO BID [facility] Last Admin: 05/27/18 10:28 Dose: 25 mg Atorvastatin Calcium (Lipitor) 20 mg PO DIN [facility] Last Admin: 05/26/18 18:39 Dose: 20 mg Digoxin (Lanoxin) 0.25 mg PO 1400 [facility] Last Admin: 05/26/18 14:48 Dose: 0.25 mg Enoxaparin Sodium (Lovenox) 60 mg SC Q12H [facility]; Protocol Last Admin: 05/19/18 21:00 Dose: Not Given Mirtazapine (Remeron) 15 mg PO HS [facility] Last Admin: 05/27/18 11:57 Dose: Not Given Pantoprazole Sodium (Protonix Inj) 40 mg IVP DAILY [facility] Last Admin: 05/27/18 10:29 Dose: 40 mg - Labs Labs: 05/27/18 06:30 05/27/18 06:30 PT 14.7 SECONDS (9.4-12.5) H 05/27/18 06:30 INR 1.27 05/27/18 06:30 APTT 35.2 Seconds (25.1-36.5) 05/16/18 19:12 - Head Exam Head Exam: ATRAUMATIC - Eye Exam Eye Exam: Normal appearance - ENT Exam ENT Exam: Mucous Membranes Dry - Respiratory Exam Respiratory Exam: NORMAL BREATHING PATTERN - Cardiovascular Exam Cardiovascular Exam: +S1, +S2 - GI/Abdominal Exam GI & Abdominal Exam: Normal Bowel Sounds Assessment and Plan (1) Thrombocytopenia Assessment & Plan: improving/resolving Status: Acute (2) Anemia Assessment & Plan: chronic disease, bone marrow suppression s/p Aranesp and PRBC transfusion Status: Acute (3) Coagulopathy Assessment & Plan: nutritional Eliquis Status: Acute
--- NOTE | 2018-05-27 13:57 | CP.PCM.PN ---
<MickieParminder - Last Filed: 05/27/18 13:52> Subjective - Date & Time of Evaluation Date of Evaluation: 05/27/18 Time of Evaluation: 13:52 - Subjective Subjective: Podiatry progress note for Dr. Philip 82 y/o female seen and evaluated at bedside with Dr. Philip. Patient was resting comfortably when evaluated. Patient states that she is in pain at her right knee from the surgical site. Patient describes the pain as burning. Patient denies any complaints of F/N/V/SOB/chills Objective - Vital Signs/Intake and Output Vital Signs (last 24 hours): Temp Pulse Resp BP Pulse Ox 98 F 71 20 162/86 H 97 05/27/18 06:00 05/27/18 10:28 05/27/18 06:00 05/27/18 10:28 05/27/18 06:00 Intake and Output: 05/27/18 05/27/18 06:59 18:59 Intake Total 420 Output Total 500 Balance -80 - Medications Medications: Current Medications Acetaminophen (Tylenol 325mg Tab) 650 mg PO Q6H PRN PRN Reason: Pain, moderate (4-7) Last Admin: 05/26/18 06:16 Dose: 650 mg Apixaban (Eliquis) 2.5 mg PO BID [facility]; Protocol Last Admin: 05/27/18 10:28 Dose: 2.5 mg Aspirin (Ecotrin) 81 mg PO DAILY [facility] Last Admin: 05/27/18 10:28 Dose: 81 mg Atenolol (Tenormin) 25 mg PO BID [facility] Last Admin: 05/27/18 10:28 Dose: 25 mg Atorvastatin Calcium (Lipitor) 20 mg PO DIN [facility] Last Admin: 05/26/18 18:39 Dose: 20 mg Digoxin (Lanoxin) 0.25 mg PO 1400 [facility] Last Admin: 05/26/18 14:48 Dose: 0.25 mg Enoxaparin Sodium (Lovenox) 60 mg SC Q12H [facility]; Protocol Last Admin: 05/19/18 21:00 Dose: Not Given Mirtazapine (Remeron) 15 mg PO HS [facility] Last Admin: 05/27/18 11:57 Dose: Not Given Pantoprazole Sodium (Protonix Inj) 40 mg IVP DAILY [facility] Last Admin: 05/27/18 10:29 Dose: 40 mg - Labs Labs: 05/27/18 06:30 05/27/18 06:30 PT 14.7 SECONDS (9.4-12.5) H 05/27/18 06:30 INR 1.27 05/27/18 06:30 APTT 35.2 Seconds (25.1-36.5) 05/16/18 19:12 - Constitutional Appears: Well, Non-toxic, No Acute Distress - Head Exam Head Exam: ATRAUMATIC, NORMOCEPHALIC - Extremities Exam Additional comments: R LE focused exam: Vasc: DP/PT faintly palpable. Cap refill< 3 sec to all digits. Temp gradient warm to cool. No edema. Multiple ecchymotic patches extends from the periwound area at the knee joint all the way down to the R ankle. Periwound erythema noted. Neuro: Gross and protective sensations are intact. Derm: An open wound measures 80qmM4ibK6.4cm. Mild sero-sanguinous drainage noted. No malodor. Base is mostly fibrotic. No probe to bone, no tracking or undermining. Periwound erythema and ecchymosis noted. Positive clinical signs of infection. Wound regressing as skin appears to darken in color periwound and down the leg. MSK: Severe pain on palpating the periwound area. Muscle power around the knee joint couldn't be assessed due to pain and guarding. Passive and active ROM could be performed with guarding at the level of the R foot and ankle. - Neurological Exam Neurological Exam: Alert, Awake, Oriented x3 - Psychiatric Exam Psychiatric exam: Normal Affect, Normal Mood Assessment and Plan - Assessment and Plan (Free Text) Assessment: 82 y/o female with infected right knee wound and osteomyelitis Plan: Patient seen and evaluated for attending Dr. Oliva Charts, labs and vitals reviewed; Afebrile, No leukocytosis Wound culture collected, ordered and sent to the lab - [place] Species Wound cleansed gently with sterile saline, and dressed with xeroform, ABD applied- ABD taped down as lifting leg is too painful for patient Patient refused multipodus boot for both feet, aware of possibility of pressure ulcer Right knee x-ray - prosthesis removed, cement spacer in place Continue medical management per medicine and ID team Patient not a surgical candidate for wound debridement at this time as patient's platelet count is low Podiatry will re-evaluate whether patient can be taken to the OR once patient's platelet count has been stabilized Podiatry will attempt to place patient in Hyperbaric Oxygen Therapy. However, medicare guidelines have become highly stringent and restrictive over the course of the last year, so no guarantees or assurances can be given regarding enrollment for HBO therapy Podiatry will continue to follow patient while in house. <Thai Philip - Last Filed: 05/27/18 15:13> Objective - Vital Signs/Intake and Output Vital Signs (last 24 hours): Temp Pulse Resp BP Pulse Ox 97.4 F L 81 20 125/52 L 100 05/27/18 14:00 05/27/18 14:00 05/27/18 14:00 05/27/18 14:00 05/27/18 14:00 Intake and Output: 05/27/18 05/27/18 06:59 18:59 Intake Total 420 Output Total 500 Balance -80 - Medications Medications: Current Medications Acetaminophen (Tylenol 325mg Tab) 650 mg PO Q6H PRN PRN Reason: Pain, moderate (4-7) Last Admin: 05/26/18 06:16 Dose: 650 mg Apixaban (Eliquis) 2.5 mg PO BID [facility]; Protocol Last Admin: 05/27/18 10:28 Dose: 2.5 mg Aspirin (Ecotrin) 81 mg PO DAILY [facility] Last Admin: 05/27/18 10:28 Dose: 81 mg Atenolol (Tenormin) 25 mg PO BID [facility] Last Admin: 05/27/18 10:28 Dose: 25 mg Atorvastatin Calcium (Lipitor) 20 mg PO DIN [facility] Last Admin: 05/26/18 18:39 Dose: 20 mg Digoxin (Lanoxin) 0.25 mg PO 1400 [facility] Last Admin: 05/26/18 14:48 Dose: 0.25 mg Enoxaparin Sodium (Lovenox) 60 mg SC Q12H [facility]; Protocol Last Admin: 05/19/18 21:00 Dose: Not Given Mirtazapine (Remeron) 15 mg PO HS [facility] Last Admin: 05/27/18 11:57 Dose: Not Given Pantoprazole Sodium (Protonix Inj) 40 mg IVP DAILY [facility] Last Admin: 05/27/18 10:29 Dose: 40 mg - Labs Labs: 05/27/18 06:30 05/27/18 06:30 PT 14.7 SECONDS (9.4-12.5) H 05/27/18 06:30 INR 1.27 05/27/18 06:30 APTT 35.2 Seconds (25.1-36.5) 05/16/18 19:12 Attending/Attestation - Attestation I have personally seen and examined this patient.: Yes I have fully participated in the care of the patient.: Yes I have reviewed all pertinent clinical information, including history, physical exam and plan: Yes
[2018-05-27] MEDS: Digoxin 250 mcg (0.25 mg) Tab PO SCH (15:45)
--- NOTE | 2018-05-27 15:50 | CT ---
Date of service: 05/27/2018 PROCEDURE: CT HEAD WITHOUT CONTRAST. HISTORY: blurry vision COMPARISON: None available. TECHNIQUE: Axial computed tomography images were obtained through the head/brain without intravenous contrast. Radiation dose: Total exam DLP = 1030.8 mGy-cm. This CT exam was performed using one or more of the following dose reduction techniques: Automated exposure control, adjustment of the mA and/or kV according to patient size, and/or use of iterative reconstruction technique. FINDINGS: HEMORRHAGE: No intracranial hemorrhage. BRAIN: No mass effect or edema. Mild atrophy. Mild chronic microvascular changes. No acute infarct or hemorrhage VENTRICLES: Unremarkable. No hydrocephalus. CALVARIUM: Unremarkable. PARANASAL SINUSES: Unremarkable as visualized. No significant inflammatory changes. MASTOID AIR CELLS: Unremarkable as visualized. No inflammatory changes. OTHER FINDINGS: None. IMPRESSION: No acute intracranial findings
--- NOTE | 2018-05-27 15:54 | CP.PCM.PN ---
Subjective - Date & Time of Evaluation Date of Evaluation: 05/27/18 Time of Evaluation: 12:50 - Subjective Subjective: Pt. seen resting comfortabley in bed. Meal noted at bedside, denied dysphagia, patient tolerated diet well. As per podiatry, Dr. Oliva, recommending Hyperbaric treatment for knee infection , 5 days per week, after medical clearance, and insurance approval to start on Saturday, 06/02. Spoke with Infectious disease Dr. Simeon recommended no further antibiotics at this time. Spoke with Dr. Watson, regarding treatment of knee, stated no plan for debridement at this time, recommends to continue local wound care and further recommendations as per . Objective - Vital Signs/Intake and Output Vital Signs (last 24 hours): Temp Pulse Resp BP Pulse Ox 97.4 F L 81 20 125/52 L 100 05/27/18 14:00 05/27/18 14:00 05/27/18 14:00 05/27/18 14:00 05/27/18 14:00 Intake and Output: 05/27/18 05/27/18 06:59 18:59 Intake Total 420 Output Total 500 Balance -80 - Medications Medications: Current Medications Acetaminophen (Tylenol 325mg Tab) 650 mg PO Q6H PRN PRN Reason: Pain, moderate (4-7) Last Admin: 05/26/18 06:16 Dose: 650 mg Apixaban (Eliquis) 2.5 mg PO BID [facility]; Protocol Last Admin: 05/27/18 10:28 Dose: 2.5 mg Aspirin (Ecotrin) 81 mg PO DAILY [facility] Last Admin: 05/27/18 10:28 Dose: 81 mg Atenolol (Tenormin) 25 mg PO BID [facility] Last Admin: 05/27/18 10:28 Dose: 25 mg Atorvastatin Calcium (Lipitor) 20 mg PO DIN [facility] Last Admin: 05/26/18 18:39 Dose: 20 mg Digoxin (Lanoxin) 0.25 mg PO 1400 [facility] Last Admin: 05/26/18 14:48 Dose: 0.25 mg Enoxaparin Sodium (Lovenox) 60 mg SC Q12H [facility]; Protocol Last Admin: 05/19/18 21:00 Dose: Not Given Mirtazapine (Remeron) 15 mg PO HS [facility] Last Admin: 05/27/18 11:57 Dose: Not Given Pantoprazole Sodium (Protonix Inj) 40 mg IVP DAILY [facility] Last Admin: 05/27/18 10:29 Dose: 40 mg - Labs Labs: 05/27/18 06:30 05/27/18 06:30 PT 14.7 SECONDS (9.4-12.5) H 05/27/18 06:30 INR 1.27 05/27/18 06:30 APTT 35.2 Seconds (25.1-36.5) 05/16/18 19:12
--- NOTE | 2018-05-27 21:59 | PN ---
DATE: 05/27/2018 SUBJECTIVE: The patient is in bed, in no acute distress, nontoxic. PHYSICAL EXAMINATION: VITAL SIGNS: Temperature is 98, blood pressure is 125/50, respiratory rate 20, heart rate of 71. HEENT: Unremarkable. NECK: Supple. LUNGS: Decreased breath sounds. HEART: Normal S1 and S2. ABDOMEN: Soft, nontender. LABORATORY EXAMINATION: Reveals a white count of 7.6, hemoglobin of 8. Chemistries are noted. Urinalysis is noted. Review of orders reveals the patient to be off antibiotics. ASSESSMENT AND PLAN: This is an 82-year-old female who was admitted initially with nausea and vomiting, lactic acidosis and gastrointestinal issues, and had been treated with Zyvox for 6 weeks, status post debridement and removal and placement of antibiotic spacer, completed her course of antibiotic, currently off antibiotics. Overall poor condition. We will hold off on any antibiotics at this time. We will follow closely with you. Dominick Simeon MD
[2018-05-28 07:29] LABS: BASO # 0.01 K/mm3 (0.0-2.0); BASO % 0.2 % (0.0-3.0); EOS % 0.4 % (1.5-5.0); GRAN # 4.4 (1.4-6.5); GRAN % 80.9 % (50.0-68.0); HEMOGLOBIN 8.1 g/dL (12.0-16.0); LYMPH # 0.4 (1.2-3.4); LYMPH % 7.5 % (22.0-35.0); MEAN CELL VOLUME 87.7 fl (80.0-105.0); MEAN CORPUSCULAR HEMOGLOBIN 28.4 pg (25.0-35.0); MEAN CORPUSCULAR HGB CONC 32.4 g/dl (31.0-37.0); MEAN PLATELET VOLUME 11.1 fl (7.0-11.0); MONO # 0.6 (0.1-0.6); RBC 2.85 10^6/uL (3.5-6.1); RED CELL DISTRIBUTION WIDTH 19.6 % (11.5-14.5); WHITE BLOOD COUNT 5.4 10^3/uL (4.5-11.0)
[2018-05-28 07:34] LABS: INR 1.37; PROTHROMBIN TIME 15.9 SECONDS (9.4-12.5)
[2018-05-28 08:06] LABS: ALB/GLOB RATIO 0.9 (1.1-1.8); ALBUMIN 2.7 g/dL (3.0-4.8); ALT/SGPT 69 U/L (7-56); AST/SGOT 58 U/L (14-36); BLOOD UREA NITROGEN 16 mg/dL (7-21); CALCIUM 8.1 mg/dL (8.4-10.5); GFR NON-AFRICAN AMERICAN > 60
--- NOTE | 2018-05-28 09:30 | CP.PCM.PN ---
Subjective - Date & Time of Evaluation Date of Evaluation: 05/28/18 Time of Evaluation: 07:55 - Subjective Subjective: Praveen Oliveros, PGY-1 Progress Note for Hospitalist Service Patient seen and evaluated at bedside. No acute events reported overnight. Pat ient sitting up comfortably in bed eating breakfast, which she states she is tolerating without issue. Patient has been weaned off PPN feeds. Denies chest pain, palpitations, blurry vision, headaches, shortness of breath. Objective - Vital Signs/Intake and Output Vital Signs (last 24 hours): Temp Pulse Resp BP Pulse Ox 98.7 F 76 18 151/64 H 96 05/28/18 06:00 05/28/18 06:00 05/28/18 06:00 05/28/18 06:00 05/28/18 06:00 Intake and Output: 05/28/18 05/28/18 06:59 18:59 Intake Total 420 Balance 420 - Medications Medications: Current Medications Acetaminophen (Tylenol 325mg Tab) 650 mg PO Q6H PRN PRN Reason: Pain, moderate (4-7) Last Admin: 05/26/18 06:16 Dose: 650 mg Apixaban (Eliquis) 2.5 mg PO BID [facility]; Protocol Last Admin: 05/27/18 18:13 Dose: 2.5 mg Aspirin (Ecotrin) 81 mg PO DAILY [facility] Last Admin: 05/27/18 10:28 Dose: 81 mg Atenolol (Tenormin) 25 mg PO BID [facility] Last Admin: 05/27/18 18:13 Dose: 25 mg Atorvastatin Calcium (Lipitor) 20 mg PO DIN [facility] Last Admin: 05/27/18 18:12 Dose: 20 mg Digoxin (Lanoxin) 0.25 mg PO 1400 [facility] Last Admin: 05/27/18 15:45 Dose: 0.25 mg Enoxaparin Sodium (Lovenox) 60 mg SC Q12H [facility]; Protocol Last Admin: 05/19/18 21:00 Dose: Not Given Mirtazapine (Remeron) 15 mg PO HS [facility] Last Admin: 05/27/18 22:04 Dose: Not Given Pantoprazole Sodium (Protonix Inj) 40 mg IVP DAILY [facility] Last Admin: 05/27/18 10:29 Dose: 40 mg - Labs Labs: 05/28/18 07:00 05/28/18 07:00 PT 15.9 SECONDS (9.4-12.5) H 05/28/18 07:00 INR 1.37 05/28/18 07:00 APTT 35.2 Seconds (25.1-36.5) 05/16/18 19:12 - Additional Findings Additional findings: - Constitutional Appears: Non-toxic, No Acute Distress, Pallor - Head Exam Head Exam: ATRAUMATIC, NORMAL INSPECTION, NORMOCEPHALIC - Eye Exam Eye Exam: EOMI, Normal appearance - ENT Exam ENT Exam: Mucous Membranes Moist, Normal Exam - Neck Exam Neck Exam: Full ROM, Normal Inspection - Respiratory Exam Respiratory Exam: Clear to Ausculation Bilateral, NORMAL BREATHING PATTERN. absent: Accessory Muscle Use, Rales, Rhonchi, Wheezes, Respiratory Distress, Stridor - Cardiovascular Exam Cardiovascular Exam: REGULAR RHYTHM, +S1, +S2 - GI/Abdominal Exam GI & Abdominal Exam: Soft, Normal Bowel Sounds. absent: Distended, Firm, Guarding, Rigid, Tenderness, Organomegaly, Rebound - Extremities Exam Extremities Exam: Normal Capillary Refill, Pedal Edema. 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 PO intake improving, continuing to taper PPN. PLT count improving, on Eliquis. No sign of bleeding. Advancing diet to advanced bite size. Currently tolerating dysphagia diet. Hyperbaric oxygen therapy trial today and Saturday. Extensive conversation with daughter Nina regarding future steps in care of her mother and our recommendation for rehabilitation. Plan: Failure to thrive, dysphagia -PPN has been tapered, but is being supplemented with Ensure -Patient's family refusing PEG feeding at this time -Recent completion of 6 week course of Abx: zyvox and daptomycin discontinued -CT chest: no acute findings -CT head: no acute findings -EGD (04/2018): no esophageal pathology or signs of gastric outlet obstruction -repeat speech/swallow eval (05/23) -RUBBER CHEMIST recommends trial puree consistency diet with extra gravy and thin liquids -aspiration/reflux precautions -continue TPN until Pt. demonstrates a good percentage of intake with p.o. meals -GI recs appreciated -dysphagia, multifactorial - motility dysfunction, deconditioning -improved mentation and alertness -pt tolerating diet with no issues per nursing - currently dysphagia modified consistency diet with advanced bite size pieces with thin liquid - f/u Recreation Therapy Aide recommendations -neurology recommendation- no signs of neuromuscular disorder -tapered off TPN as po intake increases -Neuro recs appreciated - no signs of NM disorder -Palliative recs: Jeannette LEVIN and I met with patients daughter's Isabel and Marii (both POA's). Family aware of mothers medical situation and poor prognosis. Benefits and burdens of feeding tube discussed at length. Daughters refusing PEG tube, in accordance of mother's AD wishes . Hospice services explained in detail. Questions answered. Daughters conflicted, state they are unable to stay home from their jobs in order to care for their mother. Daughter states that mother does not have the finances to pay for 24 hour aide or go to NH facility. Medicaid application in progress. 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 Mi) appreciated -CRP elevated b/c patient is ill; not an accurate assessment of the knee inflammation -will get another CRP -superficial wound cx: pantoea sensitive to many abx: giving bactroban, polymixin, bacitracin ointment -Podiatry: Podiatry will re-evaluate whether patient can be taken to the OR once patient's platelet count has been stabilized. Podiatry will attempt to place patient in Hyperbaric Oxygen Therapy. Ortho: Continue per ID recs. For now, continue local wound care. Possibility of hyperbaric given that patient is less debilitated. Atrial fibrillation - Digoxin 0.8 (05/16) - Atenolol 25 mg PO daily - Eliquis 2.5 mg BID CAD - Aspirin - lipitor 20 mg PPx, Diet, Dispostion -DVT ppx: lovenox on hold -Diet: pureed, thin liquid, extra gravy -Dispo: patient clinically improving, tolerating po intake. Continue to taper PPN as PO intake increases. Eliquis began today. Social work: Daughter admits to currently being ill prepared to have patient return home as she does not have appropriate equipment yet. Social work/Case management: plan to speak with [facility] for transportation back and forth from home to hospital for next week if the patient is approved for hyperbaric treatment. SW will have to reach out to [facility] to see if they can transport patient. Patient seen, case reviewed and plan approved by Dr. Ellis. Praveen Oliveros, PGY-1
--- NOTE | 2018-05-28 10:18 | CP.PCM.PN ---
<MickieParminder - Last Filed: 05/28/18 10:16> Subjective - Date & Time of Evaluation Date of Evaluation: 05/28/18 Time of Evaluation: 10:16 - Subjective Subjective: Podiatry progress note for Dr. Oliva 82 y/o female seen and evaluated at bedside with Dr. Oliva. Patient was sleeping when evaluated. Patient states that she is in pain at her right knee from the surgical site. Patient describes the pain as burning. Patient denies any complaints of F/N/V/SOB/chills Objective - Vital Signs/Intake and Output Vital Signs (last 24 hours): Temp Pulse Resp BP Pulse Ox 98.7 F 76 18 151/64 H 96 05/28/18 06:00 05/28/18 06:00 05/28/18 06:00 05/28/18 06:00 05/28/18 06:00 Intake and Output: 05/28/18 05/28/18 06:59 18:59 Intake Total 420 Balance 420 - Medications Medications: Current Medications Acetaminophen (Tylenol 325mg Tab) 650 mg PO Q6H PRN PRN Reason: Pain, moderate (4-7) Last Admin: 05/26/18 06:16 Dose: 650 mg Apixaban (Eliquis) 2.5 mg PO BID [facility]; Protocol Last Admin: 05/27/18 18:13 Dose: 2.5 mg Aspirin (Ecotrin) 81 mg PO DAILY [facility] Last Admin: 05/27/18 10:28 Dose: 81 mg Atenolol (Tenormin) 25 mg PO BID [facility] Last Admin: 05/27/18 18:13 Dose: 25 mg Atorvastatin Calcium (Lipitor) 20 mg PO DIN [facility] Last Admin: 05/27/18 18:12 Dose: 20 mg Digoxin (Lanoxin) 0.25 mg PO 1400 [facility] Last Admin: 05/27/18 15:45 Dose: 0.25 mg Enoxaparin Sodium (Lovenox) 60 mg SC Q12H [facility]; Protocol Last Admin: 05/19/18 21:00 Dose: Not Given Mirtazapine (Remeron) 15 mg PO HS [facility] Last Admin: 05/27/18 22:04 Dose: Not Given Pantoprazole Sodium (Protonix Inj) 40 mg IVP DAILY [facility] Last Admin: 05/27/18 10:29 Dose: 40 mg - Labs Labs: 05/28/18 07:00 05/28/18 07:00 PT 15.9 SECONDS (9.4-12.5) H 05/28/18 07:00 INR 1.37 05/28/18 07:00 APTT 35.2 Seconds (25.1-36.5) 05/16/18 19:12 - Constitutional Appears: Well, Non-toxic, No Acute Distress - Head Exam Head Exam: ATRAUMATIC, NORMOCEPHALIC - Extremities Exam Additional comments: R LE focused exam: Vasc: DP/PT faintly palpable. Cap refill< 3 sec to all digits. Temp gradient warm to cool. No edema. Multiple ecchymotic patches extends from the periwound area at the knee joint all the way down to the R ankle. Periwound erythema noted. Neuro: Gross and protective sensations are intact. Derm: An open wound measures [id number]. Moderate sero-sanguinous drainage noted. No malodor. Base is mostly fibro-granular. No probe to bone, no tracking or undermining. Periwound erythema and ecchymosis noted. Positive clinical signs of infection. Wound regressing as skin appears to darken in color periwound and down the leg. MSK: Severe pain on palpating the periwound area. Muscle power around the knee joint couldn't be assessed due to pain and guarding. Passive and active ROM could be performed with guarding at the level of the R foot and ankle. - Neurological Exam Neurological Exam: Alert, Awake, Oriented x3 - Psychiatric Exam Psychiatric exam: Normal Affect, Normal Mood Assessment and Plan - Assessment and Plan (Free Text) Assessment: 82 y/o female with infected right knee wound and osteomyelitis Plan: Patient seen and evaluated for attending Dr. Oliva Charts, labs and vitals reviewed; Afebrile, No leukocytosis Wound culture collected, ordered and sent to the lab - Jazmyneonea Species Wound cleansed gently with sterile saline, and dressed with xeroform, ABD applied- ABD taped down as lifting leg is too painful for patient Patient refused multipodus boot for both feet, aware of possibility of pressure ulcer Right knee x-ray - prosthesis removed, cement spacer in place Continue medical management per medicine and ID team Patient not a surgical candidate for wound debridement at this time as patient's platelet count is low Podiatry will re-evaluate whether patient can be taken to the OR once patient's platelet count has been stabilized Patient to try Hyperbaric Therapy today while in house Podiatry will continue to follow patient while in house. <Kristen Oliva - Last Filed: 05/31/18 14:52> Objective - Vital Signs/Intake and Output Vital Signs (last 24 hours): Temp Pulse Resp BP Pulse Ox 97.6 F 57 L 20 115/57 L 98 05/31/18 06:00 05/31/18 06:00 05/31/18 06:00 05/31/18 06:00 05/31/18 06:00 - Medications Medications: Current Medications Acetaminophen (Tylenol 325mg Tab) 650 mg PO Q6H PRN PRN Reason: Pain, moderate (4-7) Last Admin: 05/30/18 16:19 Dose: 650 mg Apixaban (Eliquis) 2.5 mg PO BID [facility]; Protocol Last Admin: 05/31/18 11:25 Dose: 2.5 mg Aspirin (Ecotrin) 81 mg PO DAILY [facility] Last Admin: 05/31/18 11:25 Dose: 81 mg Atenolol (Tenormin) 25 mg PO BID [facility] Last Admin: 05/31/18 11:25 Dose: 25 mg Atorvastatin Calcium (Lipitor) 20 mg PO DIN [facility] Last Admin: 05/30/18 17:32 Dose: 20 mg Digoxin (Lanoxin) 0.25 mg PO 1400 [facility] Last Admin: 05/30/18 15:33 Dose: 0.25 mg Enoxaparin Sodium (Lovenox) 60 mg SC Q12H [facility]; Protocol Last Admin: 05/19/18 21:00 Dose: Not Given Mirtazapine (Remeron) 15 mg PO HS [facility] Last Admin: 05/30/18 21:15 Dose: Not Given Ondansetron HCl (Zofran Inj) 4 mg IVP Q6H PRN PRN Reason: Nausea/Vomiting Pantoprazole Sodium (Protonix Inj) 40 mg IVP DAILY [facility] Last Admin: 05/31/18 11:25 Dose: 40 mg - Labs Labs: 05/31/18 07:00 05/31/18 07:00 PT 16.7 SECONDS (9.4-12.5) H 05/31/18 07:00 INR 1.44 05/31/18 07:00 APTT 35.2 Seconds (25.1-36.5) 05/16/18 19:12 Attending/Attestation - Attestation I have personally seen and examined this patient.: Yes I have fully participated in the care of the patient.: Yes I have reviewed all pertinent clinical information, including history, physical exam and plan: Yes
--- NOTE | 2018-05-28 10:59 | CP.PCM.PCO ---
Physician Communication Note - Physician Communication Note Physician Communication Note: Patient is to receive Hyperbaric treatment today and Saturday as per
--- NOTE | 2018-05-28 12:51 | CP.PCM.PN ---
Subjective - Date & Time of Evaluation Date of Evaluation: 05/28/18 Time of Evaluation: 12:44 - Subjective Subjective: Pt clinically doing better. Afebrile, VSS R knee: incision about the same. Some necrotic skin edges noted. No significant drainage appreciated. At this time, given that patient has a periprosthetic infection involving skin, soft tissues and bone, pt would benefit from local wound debridement and hyperbaric therapy if no medical contraindications. If wound heals and infection eradicated, patient would be a candidate for reimplantation. Objective - Vital Signs/Intake and Output Vital Signs (last 24 hours): Temp Pulse Resp BP Pulse Ox 98.7 F 80 18 135/65 96 05/28/18 06:00 05/28/18 10:54 05/28/18 06:00 05/28/18 10:54 05/28/18 06:00 Intake and Output: 05/28/18 05/28/18 06:59 18:59 Intake Total 420 Balance 420 - Medications Medications: Current Medications Acetaminophen (Tylenol 325mg Tab) 650 mg PO Q6H PRN PRN Reason: Pain, moderate (4-7) Last Admin: 05/28/18 11:10 Dose: 650 mg Apixaban (Eliquis) 2.5 mg PO BID [facility]; Protocol Last Admin: 05/28/18 10:54 Dose: 2.5 mg Aspirin (Ecotrin) 81 mg PO DAILY [facility] Last Admin: 05/28/18 10:54 Dose: 81 mg Atenolol (Tenormin) 25 mg PO BID [facility] Last Admin: 05/28/18 10:54 Dose: 25 mg Atorvastatin Calcium (Lipitor) 20 mg PO DIN [facility] Last Admin: 05/27/18 18:12 Dose: 20 mg Digoxin (Lanoxin) 0.25 mg PO 1400 [facility] Last Admin: 05/27/18 15:45 Dose: 0.25 mg Enoxaparin Sodium (Lovenox) 60 mg SC Q12H [facility]; Protocol Last Admin: 05/19/18 21:00 Dose: Not Given Mirtazapine (Remeron) 15 mg PO HS [facility] Last Admin: 05/27/18 22:04 Dose: Not Given Pantoprazole Sodium (Protonix Inj) 40 mg IVP DAILY [facility] Last Admin: 05/28/18 10:54 Dose: 40 mg - Labs Labs: 05/28/18 07:00 05/28/18 07:00 PT 15.9 SECONDS (9.4-12.5) H 05/28/18 07:00 INR 1.37 05/28/18 07:00 APTT 35.2 Seconds (25.1-36.5) 05/16/18 19:12
[2018-05-28] MEDS: Digoxin 250 mcg (0.25 mg) Tab PO SCH (14:03)
--- NOTE | 2018-05-28 14:56 | CP.PCM.PCO ---
Physician Communication Note - Physician Communication Note Physician Communication Note: As per PMD,Patient cleared for DC home Saturday, 05/30. MRI pending for osteo
--- NOTE | 2018-05-28 16:50 | MRI ---
Date of service: 05/28/2018 PROCEDURE: MRI of the right knee HISTORY: r/o osteo COMPARISON: Plain films 05/18/2018 TECHNIQUE: MRI of the right knee was performed in multiple planes using multiple pulse sequences. FINDINGS: The study is of limited usefullness. The knee joint is filled with cement. There are no normal knee structures. Central cavities are seen in the distal femur and proximal tibia from previous prostheses. It would be difficult to exclude osteomyelitis. There is no obvious bony destruction. IMPRESSION: As above
--- NOTE | 2018-05-28 18:41 | CON ---
DATE OF CONSULTATION: 05/28/2018 Dr. Oliva asked me to see the patient. HISTORY OF PRESENT ILLNESS: She is an 82-year-old female who presented to the hospital with nausea and vomiting. She was at subacute rehab, was unable to eat. She has been on Zyvox for VRE, status post right knee replacement. PAST MEDICAL HISTORY: Hypertension, CAD, atrial fibrillation, on Coumadin, osteoarthritis, right knee replacement with removal of spacer on 04/08/2018. FAMILY HISTORY: Heart disease. SOCIAL HISTORY: She does not smoke. No drinking. No drugs. She lives alone. She walks with a walker prior to surgery. MEDICATIONS: She is currently on Ecotrin, Eliquis, Lanoxin, Lipitor, Lovenox, Protonix, Remeron, Tenormin, and Tylenol. ALLERGIES: SHE HAS ALLERGIES TO DIPHENHYDRAMINE, NITROGLYCERIN, PENICILLIN, SILK TAPE, CHOCOLATE, CANDY. REVIEW OF SYSTEMS: She is tired. No fevers. No acute vision or hearing changes, but old. No shortness of breath. No chest pain. There is nausea and vomiting. No problems with urinating. There is a right knee issue status post surgery. PHYSICAL EXAMINATION: VITAL SIGNS: Stable. She has 98.7 temperature, 76 pulse, 151/64 blood pressure, 18 respiratory rate, and 96% O2 sat on room air. HEENT: Head is atraumatic and normocephalic. Extraocular muscles are intact. Throat is moist. I looked in both ears, they are clear, a little bit of wax, but not bad. Throat is moist. NECK: Supple. HEART: Regular rate. Normal S1 and S2. LUNGS: Decreased breath sounds, but clear to auscultation bilaterally. No wheezes. No rhonchi. No rales. ABDOMEN: Soft, nontender. Positive bowel sounds. No guarding or rebound. No CVA tenderness. EXTREMITIES: The right knee is bandaged status post procedure and I believe it is an open wound. Also, the right leg is rotated to the right and shortened. NEUROLOGIC: GCS is 15. Cranial nerves II-XII grossly intact. Alert and oriented at this time. SKIN: For the most, it was warm and dry except for the right knee. LABORATORY DATA: She had multiple tests. She has a 5.4 white count, 8.1 hemoglobin, 25 hematocrit with 139,000 platelets. She has 1.37 INR, she is on Coumadin, we should adjust that. Lactate is 12.1 on 05/17/2018. She has 134 sodium, potassium 4.2, BUN 16, creatinine 0.5, chloride is 106, sugar is 101, calcium is 8.1, total bilirubin is 0.8, AST is 50, ALT is 69, alkaline phosphatase is 108, total protein is 5.7. Urine is clean. Tox dig is 0.8. There is Pantoea species in the right knee. She is being seen by multiple physicians, Oncology, ENT, Psychiatry, Orthopedics, Infectious Disease, GI. After evaluation, a discussion with physical exam, reviewing her medications, EKG, chest x-ray, EKG showed AFib and the chest x-ray was clear and labs were fairly well. Medications, she is medically cleared for hyperbaric oxygen. I will let Dr. Oliva know. Thank you for letting me participate in the care. Elio Hancock DO
--- NOTE | 2018-05-29 00:20 | PN ---
DATE: 05/28/2018 SUBJECTIVE: The patient is in bed. No fevers. No chills. PHYSICAL EXAMINATION: VITAL SIGNS: On exam, temperature is 98, blood pressure is 116/50, respiratory rate 18, and heart rate of 76. HEENT: Unremarkable. NECK: Supple. LUNGS: Have decreased breath sounds. HEART: Normal S1 and S2. ABDOMEN: Soft. LABORATORY EXAMINATION: Reveals a white count of 5.4, hemoglobin is noted. Urinalysis is noted. Microbiology is noted. Right knee culture and Pantoea species, kamara sensitive. The patient had a right knee MRI. Findings is reported limited usefulness, difficult to exclude osteo with cement. Review of orders. ASSESSMENT AND PLAN: This 82-year-old female who was admitted initially with nausea, vomiting, lactic acidosis, gastrointestinal issues, treated with Zyvox for 6 weeks, status post debridement and removal and placement of antibiotic spacer, completed her course, currently off antibiotics. We will continue to follow her off antibiotics at this time. We will follow with you. Dominick Simeon MD
[2018-05-29 06:59] LABS: BASO # 0.02 K/mm3 (0.0-2.0); BASO % 0.3 % (0.0-3.0); EOS # 0.1 (0.0-0.7); EOS % 1.7 % (1.5-5.0); GRAN # 4.59 (1.4-6.5); GRAN % 78.6 % (50.0-68.0); HEMOGLOBIN 7.2 g/dL (12.0-16.0); LYMPH # 0.5 (1.2-3.4); LYMPH % 9.1 % (22.0-35.0); MEAN CELL VOLUME 87.1 fl (80.0-105.0); MEAN CORPUSCULAR HEMOGLOBIN 28.2 pg (25.0-35.0); MEAN CORPUSCULAR HGB CONC 32.4 g/dl (31.0-37.0); MEAN PLATELET VOLUME 11.1 fl (7.0-11.0); MONO # 0.6 (0.1-0.6); MONO % 10.3 % (1.0-6.0); RBC 2.55 10^6/uL (3.5-6.1); RED CELL DISTRIBUTION WIDTH 19.1 % (11.5-14.5); WHITE BLOOD COUNT 5.8 10^3/uL (4.5-11.0)
[2018-05-29 07:11] LABS: INR 1.43; PROTHROMBIN TIME 16.6 SECONDS (9.4-12.5)
[2018-05-29 07:29] LABS: ALB/GLOB RATIO 0.9 (1.1-1.8); ALBUMIN 2.4 g/dL (3.0-4.8); ALT/SGPT 90 U/L (7-56); AST/SGOT 73 U/L (14-36); BLOOD UREA NITROGEN 15 mg/dL (7-21); CALCIUM 7.7 mg/dL (8.4-10.5); GFR NON-AFRICAN AMERICAN > 60
--- NOTE | 2018-05-29 08:48 | US ---
PROCEDURE: Left lower extremity venous US HISTORY: Leg pain and swelling. Evaluate for DVT. PHYSICIAN(S): Satnam Baltazar MD. TECHNIQUE: Duplex sonography and color-flow Doppler with graded compression were used to evaluate the deep venous system of the left lower extremity. The exam is limited by edema FINDINGS: The visualized deep venous system of the left lower extremity is sonographically normal and compressible. Normal wave forms and augmentation are seen. There is no sonographic evidence for deep venous thrombosis in the visualized segments of the left lower extremity. IMPRESSION: 1. No sonographic evidence for deep venous thrombosis in the visualized segments of the left lower extremity.
--- NOTE | 2018-05-29 11:04 | CP.PCM.PN ---
<Brown Jeronimo - Last Filed: 05/29/18 10:56> Subjective - Date & Time of Evaluation Date of Evaluation: 05/29/18 Time of Evaluation: 10:56 - Subjective Subjective: Podiatry progress note for Dr. Oliva 82 y/o female seen and evaluated at bedside with Dr. Oliva. Patient was resting in her bed. Patient states that the pain in her right knee incision site is unbearable when anyone trys to move the the right leg. Patient describes the pain as burning pain. Patient denies any overnight complaints of F/N/V/SOB/chills Objective - Vital Signs/Intake and Output Vital Signs (last 24 hours): Temp Pulse Resp BP Pulse Ox 97.5 F L 80 20 142/82 96 05/29/18 06:00 05/29/18 09:06 05/29/18 06:00 05/29/18 09:06 05/29/18 06:00 Intake and Output: 05/29/18 05/29/18 06:59 18:59 Intake Total 840 Balance 840 - Medications Medications: Current Medications Acetaminophen (Tylenol 325mg Tab) 650 mg PO Q6H PRN PRN Reason: Pain, moderate (4-7) Last Admin: 05/29/18 05:09 Dose: 650 mg Alprazolam (Xanax) 0.5 mg PO ONCE ONE; Protocol Stop: 05/30/18 00:02 Apixaban (Eliquis) 2.5 mg PO BID [facility]; Protocol Last Admin: 05/29/18 09:06 Dose: 2.5 mg Aspirin (Ecotrin) 81 mg PO DAILY [facility] Last Admin: 05/29/18 09:06 Dose: 81 mg Atenolol (Tenormin) 25 mg PO BID [facility] Last Admin: 05/29/18 09:06 Dose: 25 mg Atorvastatin Calcium (Lipitor) 20 mg PO DIN [facility] Last Admin: 05/28/18 17:55 Dose: 20 mg Digoxin (Lanoxin) 0.25 mg PO 1400 [facility] Last Admin: 05/28/18 14:03 Dose: 0.25 mg Enoxaparin Sodium (Lovenox) 60 mg SC Q12H [facility]; Protocol Last Admin: 05/19/18 21:00 Dose: Not Given Mirtazapine (Remeron) 15 mg PO HS [facility] Last Admin: 05/28/18 22:06 Dose: Not Given Pantoprazole Sodium (Protonix Inj) 40 mg IVP DAILY [facility] Last Admin: 05/29/18 09:05 Dose: 40 mg - Labs Labs: 05/29/18 06:45 05/29/18 06:45 PT 16.6 SECONDS (9.4-12.5) H 05/29/18 06:45 INR 1.43 05/29/18 06:45 APTT 35.2 Seconds (25.1-36.5) 05/16/18 19:12 - Head Exam Head Exam: ATRAUMATIC, NORMOCEPHALIC - Extremities Exam Additional comments: R LE focused exam: Vasc: DP/PT faintly palpable. Cap refill< 3 sec to all digits. Temp gradient warm to cool. No edema. Multiple ecchymotic patches extends from the periwound area at the knee joint all the way down to the R ankle. Mild Periwound erythema noted. Neuro: Gross and protective sensations are intact. Derm: An open wound measures [id number]. Moderate serous drainage noted. No malodor. Base is mostly fibro-granular. No probe to bone, no tracking or undermining. Periwound erythema and ecchymosis noted. Positive clinical signs of infection. Wound regressing as skin appears to darken in color periwound and down the leg. MSK: Severe pain on palpating the periwound area. Muscle power around the knee joint couldn't be assessed due to pain and guarding. Passive and active ROM could be performed with guarding at the level of the R foot and ankle. - Neurological Exam Neurological Exam: Alert, Awake, Oriented x3 Assessment and Plan - Assessment and Plan (Free Text) Assessment: 82 y/o female patient with infected right knee wound and osteomyelitis Plan: Patient seen and evaluated for attending Dr. Oliva Charts, labs and vitals reviewed; Afebrile, No leukocytosis Wound culture collected, ordered and sent to the lab - Pantonea Species Wound dressed with xeroform, 4X4 gauze and taped down as lifting leg is too painful for patient Multipodus boot is in place. Right knee x-ray - prosthesis removed, cement spacer in place Continue medical management per medicine and ID team Patient not a surgical candidate for wound debridement at this time as patient's platelet count is low Podiatry will re-evaluate whether patient can be taken to the OR once patient's platelet count has been stabilized Patient to try received Therapy yesterday LE venous duplex; No evidence of DVT. R knee MRI: OM can't be excluded despite there is no obvious bony erosions Patient expected to be discharged tomorrow. Podiatry will continue to follow patient while in house. <Kristen Oliva - Last Filed: 05/31/18 14:42> Objective - Vital Signs/Intake and Output Vital Signs (last 24 hours): Temp Pulse Resp BP Pulse Ox 97.6 F 57 L 20 115/57 L 98 05/31/18 06:00 05/31/18 06:00 05/31/18 06:00 05/31/18 06:00 05/31/18 06:00 - Medications Medications: Current Medications Acetaminophen (Tylenol 325mg Tab) 650 mg PO Q6H PRN PRN Reason: Pain, moderate (4-7) Last Admin: 05/30/18 16:19 Dose: 650 mg Apixaban (Eliquis) 2.5 mg PO BID [facility]; Protocol Last Admin: 05/31/18 11:25 Dose: 2.5 mg Aspirin (Ecotrin) 81 mg PO DAILY [facility] Last Admin: 05/31/18 11:25 Dose: 81 mg Atenolol (Tenormin) 25 mg PO BID [facility] Last Admin: 05/31/18 11:25 Dose: 25 mg Atorvastatin Calcium (Lipitor) 20 mg PO DIN [facility] Last Admin: 05/30/18 17:32 Dose: 20 mg Digoxin (Lanoxin) 0.25 mg PO 1400 [facility] Last Admin: 05/30/18 15:33 Dose: 0.25 mg Enoxaparin Sodium (Lovenox) 60 mg SC Q12H [facility]; Protocol Last Admin: 05/19/18 21:00 Dose: Not Given Mirtazapine (Remeron) 15 mg PO HS [facility] Last Admin: 05/30/18 21:15 Dose: Not Given Ondansetron HCl (Zofran Inj) 4 mg IVP Q6H PRN PRN Reason: Nausea/Vomiting Pantoprazole Sodium (Protonix Inj) 40 mg IVP DAILY [facility] Last Admin: 05/31/18 11:25 Dose: 40 mg - Labs Labs: 05/31/18 07:00 05/31/18 07:00 PT 16.7 SECONDS (9.4-12.5) H 05/31/18 07:00 INR 1.44 05/31/18 07:00 APTT 35.2 Seconds (25.1-36.5) 05/16/18 19:12 Attending/Attestation - Attestation I have personally seen and examined this patient.: Yes I have fully participated in the care of the patient.: Yes I have reviewed all pertinent clinical information, including history, physical exam and plan: Yes
--- NOTE | 2018-05-29 13:19 | PN ---
DATE: 05/29/2018 SUBJECTIVE: The patient is in bed in no acute distress, nontoxic. PHYSICAL EXAMINATION: VITAL SIGNS: Temperature is 97, blood pressure is 140/80, respiratory rate 20, heart rate of 67. HEENT: Unremarkable. NECK: Supple. LUNGS: Have decreased breath sounds. HEART: Normal S1, S2. ABDOMEN: Soft, nontender. LABORATORY EXAMINATION: Reveals a white count of 5.8, hemoglobin of 7, platelets of 162,000. BUN of 15, creatinine of 0.5. Urinalysis is noted and microbiology is noted. ASSESSMENT AND PLAN: This is an 82-year-old female admitted initially with nausea, vomiting, lactic acidosis, gastrointestinal issues in the past, was treated with Zyvox of 6 weeks status post debridement and placement with an antibiotic spacer, completed her course, currently off of antibiotics. She is not a candidate for knee replacement this at time due to her poor status. We will continue to follow for now. Dominick Simeon MD
[2018-05-29] MEDS: Digoxin 250 mcg (0.25 mg) Tab PO SCH (13:43)
--- NOTE | 2018-05-29 13:53 | PN ---
DATE: 05/29/2018 SUBJECTIVE: She is comfortable in bed, in no acute distress. No events overnight. She is sitting up. PPN is weaned off. Denies any shortness of breath. No chest pain. Hemoglobin declined to 7.2 g/dL today. PHYSICAL EXAMINATION: GENERAL: Comfortable in bed, in no acute distress. VITAL SIGNS: Temperature 98.7, heart rate is 76 per minute, respiratory rate 18 per minute, blood pressure 150/60, pulse ox is 96% on room air. HEENT: pallor positive. NECK: No lymphadenopathy. CHEST: Air entry present and equal bilateral. No added sound. CARDIOVASCULAR: S1 and S2 normal. No murmur. No gallop. ABDOMEN: Soft, nontender. No hepatosplenomegaly. EXTREMITIES: No edema. LABORATORY DATA: White count 5.8, hemoglobin 7.2, hematocrit 22.2, platelet 162. Sodium 137, potassium 4.7, creatinine 0.4, magnesium 2.3, calcium 8.1. MEDICATIONS: Reviewed. Currently on aspirin, Eliquis, digoxin, and Lipitor 20 mg daily. ASSESSMENT: 1. Severe anemia. 2. Infected prosthesis removal, wound infection. 3. Atrial fibrillation. 4. Coronary artery disease. 5. On anticoagulation. PLAN: One unit of PRBC transfusion to be done today. Daughter informed by the staff nurse of the transfusion. Anemia related to anemia of chronic disease. Renal functions are normal. She has received several units of blood transfusion during this hospitalization. Currently, on anticoagulation with Eliquis, which will worsen the anemia. She also has a history of atrial fibrillation and completely mobile now. She will need anticoagulation. She also developed thrombocytopenia likely related to medications, especially with . Podiatry following note reviewed. Brianna Pritchard MD [facility]
--- NOTE | 2018-05-29 14:23 | CP.PCM.PN ---
<Praveen Oliveros - Last Filed: 05/29/18 13:56> Subjective - Date & Time of Evaluation Date of Evaluation: 05/29/18 Time of Evaluation: 08:10 - Subjective Subjective: Praveen Oliveros PGY-1 Progress Note for Hospitalist Service Patient seen and evaluated at bedside. No acute events reported overnight. Patient sitting up comfortably in bed eating breakfast, which she states she is tolerating without issue. Patient has been weaned off PPN feeds. Denies chest pain, palpitations, blurry vision, headaches, shortness of breath. Hgb decreased to 7.2. Objective - Vital Signs/Intake and Output Vital Signs (last 24 hours): Temp Pulse Resp BP Pulse Ox 97.5 F L 80 20 142/82 96 05/29/18 06:00 05/29/18 09:06 05/29/18 06:00 05/29/18 09:06 05/29/18 06:00 Intake and Output: 05/29/18 05/29/18 06:59 18:59 Intake Total 840 Balance 840 - Medications Medications: Current Medications Acetaminophen (Tylenol 325mg Tab) 650 mg PO Q6H PRN PRN Reason: Pain, moderate (4-7) Last Admin: 05/29/18 05:09 Dose: 650 mg Alprazolam (Xanax) 0.5 mg PO ONCE ONE; Protocol Stop: 05/30/18 00:02 Apixaban (Eliquis) 2.5 mg PO BID [facility]; Protocol Last Admin: 05/29/18 09:06 Dose: 2.5 mg Aspirin (Ecotrin) 81 mg PO DAILY [facility] Last Admin: 05/29/18 09:06 Dose: 81 mg Atenolol (Tenormin) 25 mg PO BID [facility] Last Admin: 05/29/18 09:06 Dose: 25 mg Atorvastatin Calcium (Lipitor) 20 mg PO DIN [facility] Last Admin: 05/28/18 17:55 Dose: 20 mg Digoxin (Lanoxin) 0.25 mg PO 1400 [facility] Last Admin: 05/29/18 13:43 Dose: 0.25 mg Enoxaparin Sodium (Lovenox) 60 mg SC Q12H [facility]; Protocol Last Admin: 05/19/18 21:00 Dose: Not Given Mirtazapine (Remeron) 15 mg PO HS [facility] Last Admin: 05/28/18 22:06 Dose: Not Given Pantoprazole Sodium (Protonix Inj) 40 mg IVP DAILY [facility] Last Admin: 05/29/18 09:05 Dose: 40 mg - Labs Labs: 05/29/18 06:45 05/29/18 06:45 PT 16.6 SECONDS (9.4-12.5) H 05/29/18 06:45 INR 1.43 05/29/18 06:45 APTT 35.2 Seconds (25.1-36.5) 05/16/18 19:12 - Additional Findings Additional findings: - Constitutional Appears: Non-toxic, No Acute Distress, Pallor - Head Exam Head Exam: ATRAUMATIC, NORMAL INSPECTION, NORMOCEPHALIC - Eye Exam Eye Exam: EOMI, Normal appearance - ENT Exam ENT Exam: Mucous Membranes Moist, Normal Exam - Neck Exam Neck Exam: Full ROM, Normal Inspection - Respiratory Exam Respiratory Exam: Clear to Ausculation Bilateral, NORMAL BREATHING PATTERN. absent: Accessory Muscle Use, Rales, Rhonchi, Wheezes, Respiratory Distress, Stridor - Cardiovascular Exam Cardiovascular Exam: REGULAR RHYTHM, +S1, +S2 - GI/Abdominal Exam GI & Abdominal Exam: Soft, Normal Bowel Sounds. absent: Distended, Firm, Guarding, Rigid, Tenderness, Organomegaly, Rebound - Extremities Exam Extremities Exam: Normal Capillary Refill, Pedal Edema. 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 PO intake improving, continuing to taper PPN. PLT count improving, on Eliquis. No sign of bleeding. Advancing diet to advanced bite size. Currently tolerating dysphagia diet. Hyperbaric oxygen therapy trial planned for 05/30. Extensive conversation with daughter Nina yesterday regarding future steps in care of her mother and our recommendation for rehabilitation. Plan: Anemia, Thrombocytopenia -pt s/p 1 unit prbc, given a dose of erythropoietin -hyperproliferative erythroid response -anemia of chronic disease -iron, b12, folate wnl -PLT 124 improved - began Eliquis 05/26- will continue to monitor thrombocytopenia and increased risk of bleeding -Heme/Onc recs appreciated -medication induced thrombocytopenia; zyvox can cause cytopenias -zyvox dc'd -INR 1.27 -began Eliquis 2.5 mg PO BID 05/26 -Transfused 1 unit PRBC 05/29 after Hgb dropped to 7.2. Continue Eliquis per Dr. Pritchard. 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 Mi) appreciated -CRP elevated b/c patient is ill; not an accurate assessment of the knee inflammation -will get another CRP -superficial wound cx: pantoea sensitive to many abx: giving bactroban, polymixin, bacitracin ointment -Podiatry: Podiatry will re-evaluate whether patient can be taken to the OR once patient's platelet count has been stabilized. Podiatry will attempt to place patient in Hyperbaric Oxygen Therapy. Ortho 05/29: At this time, given that patient has a periprosthetic infection involving skin, soft tissues and bone, pt would benefit from local wound debridement and hyperbaric therapy if no medical contraindications. If wound heals and infection eradicated, patient would be a candidate for reimplantation. MRI R knee 05/28 - difficult to exclude Osteo. No obvious bone destruction Doppler LLE - no DVT Failure to thrive, dysphagia - improved -PPN has been tapered, but is being supplemented with Ensure -Patient's family refusing PEG feeding at this time -Recent completion of 6 week course of Abx: zyvox and daptomycin discontinued -CT chest: no acute findings -CT head: no acute findings -EGD (04/2018): no esophageal pathology or signs of gastric outlet obstruction -repeat speech/swallow eval (05/23) -MARKETING OPERATIONS CONSULTANT recommends trial puree consistency diet with extra gravy and thin liquids -aspiration/reflux precautions -continue TPN until Pt. demonstrates a good percentage of intake with p.o. meals -GI recs appreciated -dysphagia, multifactorial - motility dysfunction, deconditioning -improved mentation and alertness -pt tolerating diet with no issues per nursing - currently dysphagia modified consistency diet with advanced bite size pieces with thin liquid - f/u High Reach Operator recommendations: regular soft diet 05/29 -neurology recommendation- no signs of neuromuscular disorder -tapered off TPN as po intake increased -Neuro recs appreciated - no signs of NM disorder -Palliative recs: POONAM, Jeannette Lowery and I met with patients daughter's Isabel and Marii (both POA's). Family aware of mothers medical situation and poor prognosis. Benefits and burdens of feeding tube discussed at length. Daughters refusing PEG tube, in accordance of mother's AD wishes . Hospice services explained in detail. Questions answered. Daughters conflicted, state they are unable to stay home from their jobs in order to care for their mother. Daughter states that mother does not have the finances to pay for 24 hour aide or go to [place] facility. Medicaid application in progress. Atrial fibrillation - Digoxin 0.8 (05/16) - Atenolol 25 mg PO daily - Eliquis 2.5 mg BID CAD - Aspirin - lipitor 20 mg PPx, Diet, Dispostion -DVT ppx: lovenox on hold -Diet: pureed, thin liquid, extra gravy -Dispo: patient clinically improving, tolerating po intake. Continue to taper PPN as PO intake increases. Eliquis began today. Social work: Daughter admits to currently being ill prepared to have patient return home as she does not have appropriate equipment yet. Social work/Case management: [place] [facility] [place] for next week if the patient is approved for hyperbaric treatment. will have [place] [facility] [place]. Patient;s daughter was notified and updated on patient progress and course. Patient likely to be discharged 05/30 after hyperbaric therapy. Patient seen, case reviewed and plan approved by Dr. Hernandez. Praveen Oliveros, PGY-1 <Jay Hernandez - Last Filed: 05/29/18 14:32> Objective - Vital Signs/Intake and Output Vital Signs (last 24 hours): Temp Pulse Resp BP Pulse Ox 97.5 F L 80 20 142/82 96 05/29/18 06:00 05/29/18 09:06 05/29/18 06:00 05/29/18 09:06 05/29/18 06:00 Intake and Output: 05/29/18 05/29/18 06:59 18:59 Intake Total 840 Balance 840 - Medications Medications: Current Medications Acetaminophen (Tylenol 325mg Tab) 650 mg PO Q6H PRN PRN Reason: Pain, moderate (4-7) Last Admin: 05/29/18 05:09 Dose: 650 mg Alprazolam (Xanax) 0.5 mg PO ONCE ONE; Protocol Stop: 05/30/18 00:02 Apixaban (Eliquis) 2.5 mg PO BID [facility]; Protocol Last Admin: 05/29/18 09:06 Dose: 2.5 mg Aspirin (Ecotrin) 81 mg PO DAILY [facility] Last Admin: 05/29/18 09:06 Dose: 81 mg Atenolol (Tenormin) 25 mg PO BID [facility] Last Admin: 05/29/18 09:06 Dose: 25 mg Atorvastatin Calcium (Lipitor) 20 mg PO DIN [facility] Last Admin: 05/28/18 17:55 Dose: 20 mg Digoxin (Lanoxin) 0.25 mg PO 1400 [facility] Last Admin: 05/29/18 13:43 Dose: 0.25 mg Enoxaparin Sodium (Lovenox) 60 mg SC Q12H [facility]; Protocol Last Admin: 05/19/18 21:00 Dose: Not Given Mirtazapine (Remeron) 15 mg PO HS [facility] Last Admin: 05/28/18 22:06 Dose: Not Given Pantoprazole Sodium (Protonix Inj) 40 mg IVP DAILY [facility] Last Admin: 05/29/18 09:05 Dose: 40 mg - Labs Labs: 05/29/18 06:45 05/29/18 06:45 PT 16.6 SECONDS (9.4-12.5) H 05/29/18 06:45 INR 1.43 05/29/18 06:45 APTT 35.2 Seconds (25.1-36.5) 05/16/18 19:12 Attending/Attestation - Attestation I have personally seen and examined this patient.: Yes I have fully participated in the care of the patient.: Yes I have reviewed all pertinent clinical information, including history, physical exam and plan: Yes Notes (Text): 05/29/18 14:24 82 year old female with past medical history of afib previously on coumadin, CAD, hypertension, right TKA, complicated by VRE with prosthesis removal who presented with intractable vomiting and failure to thrive. Family had been refusing PEG tube placement as per mother's wishes. She was initially started on TPN which was tapered off once she has been eating more. ID, podiatry and orthopedics are following as well. Patient has completed 6 weeks course of antibiotics. Will start hyperbaric oxygen therapy tomorrow. Hematology is also following for chronic anemia. Hemoglobin today is 7.2; will transfuse 1 unit today and monitor closely. Monitor h/h closely while patient is on eliquis for afib. Thrombocytopenia has improved. Patient is DNR/DNI. Will discuss with family and caser up tomorrow regar ding discharge planning. Jay Hernandez MD Hospitalist.
[2018-05-30 06:42] LABS: BASO # 0.02 K/mm3 (0.0-2.0); BASO % 0.4 % (0.0-3.0); EOS # 0.1 (0.0-0.7); EOS % 2.7 % (1.5-5.0); GRAN # 3.81 (1.4-6.5); GRAN % 72.8 % (50.0-68.0); HEMOGLOBIN 8.4 g/dL (12.0-16.0); LYMPH # 0.8 (1.2-3.4); LYMPH % 15.3 % (22.0-35.0); MEAN CELL VOLUME 86.9 fl (80.0-105.0); MEAN CORPUSCULAR HEMOGLOBIN 29.1 pg (25.0-35.0); MEAN CORPUSCULAR HGB CONC 33.5 g/dl (31.0-37.0); MEAN PLATELET VOLUME 10.7 fl (7.0-11.0); MONO # 0.5 (0.1-0.6); MONO % 8.8 % (1.0-6.0); RBC 2.89 10^6/uL (3.5-6.1); RED CELL DISTRIBUTION WIDTH 18.4 % (11.5-14.5); WHITE BLOOD COUNT 5.2 10^3/uL (4.5-11.0)
[2018-05-30 06:47] LABS: INR 1.42; PROTHROMBIN TIME 16.4 SECONDS (9.4-12.5)
[2018-05-30 07:25] LABS: ALB/GLOB RATIO 0.9 (1.1-1.8); ALBUMIN 2.4 g/dL (3.0-4.8); ALT/SGPT 80 U/L (7-56); AST/SGOT 50 U/L (14-36); BLOOD UREA NITROGEN 12 mg/dL (7-21); CALCIUM 7.8 mg/dL (8.4-10.5); GFR NON-AFRICAN AMERICAN > 60
--- NOTE | 2018-05-30 09:46 | PN ---
DATE: 05/30/2018 SUBJECTIVE: The patient is in bed, in no acute distress. PHYSICAL EXAMINATION: VITAL SIGNS: Temperature is 97, blood pressure is 120/60, respiratory rate of 18, heart rate of 69. HEENT: Unremarkable. NECK: Supple. LUNGS: Have decreased breath sounds. HEART: Normal S1, S2. ABDOMEN: Soft. LABORATORY EXAMINATION: Reveals a white count of 5.2, hemoglobin of 8. Chemistries are noted. Urinalysis is noted and microbiology is reviewed. ASSESSMENT AND PLAN: An 82-year-old female admitted initially with nausea, vomiting, lactic acidosis, gastrointestinal issues in the past, treated with six weeks of Zyvox. Currently, the patient is awake and alert. She is doing much better, has as an antibiotic spacer and had completed, off antibiotics at this point. We will follow with you. Dominick Simeon MD
--- NOTE | 2018-05-30 11:50 | CP.PCM.PCO ---
Physician Communication Note - Physician Communication Note Physician Communication Note: Pt cleared for D/c, per Dr. Hernandez, spoke to daughter stuart JOSEPH for PT,
--- NOTE | 2018-05-30 11:52 | CP.PCM.PCO ---
Physician Communication Note - Physician Communication Note Physician Communication Note: patient to get hyperbaric treatment saturday to Saturday,needs transport
--- NOTE | 2018-05-30 12:21 | CP.PCM.PCO ---
Physician Communication Note - Physician Communication Note Physician Communication Note: Pt will need at least 1 month hyperbaric treatment of right knee per podia
--- NOTE | 2018-05-30 13:03 | CP.PCM.PN ---
Subjective - Date & Time of Evaluation Date of Evaluation: 05/30/18 Time of Evaluation: 10:00 - Subjective Subjective: Alert, oriented, offers no complaints at preset time Objective - Vital Signs/Intake and Output Vital Signs (last 24 hours): Temp Pulse Resp BP Pulse Ox 97.9 F 69 18 121/63 97 05/30/18 06:00 05/30/18 09:30 05/30/18 06:00 05/30/18 09:30 05/30/18 06:00 Intake and Output: 05/30/18 05/30/18 06:59 18:59 Intake Total 120 Balance 120 - Medications Medications: Current Medications Acetaminophen (Tylenol 325mg Tab) 650 mg PO Q6H PRN PRN Reason: Pain, moderate (4-7) Last Admin: 05/30/18 00:08 Dose: 650 mg Apixaban (Eliquis) 2.5 mg PO BID [facility]; Protocol Last Admin: 05/30/18 09:31 Dose: 2.5 mg Aspirin (Ecotrin) 81 mg PO DAILY [facility] Last Admin: 05/30/18 09:31 Dose: 81 mg Atenolol (Tenormin) 25 mg PO BID [facility] Last Admin: 05/30/18 09:30 Dose: 25 mg Atorvastatin Calcium (Lipitor) 20 mg PO DIN [facility] Last Admin: 05/29/18 17:49 Dose: 20 mg Digoxin (Lanoxin) 0.25 mg PO 1400 [facility] Last Admin: 05/29/18 13:43 Dose: 0.25 mg Enoxaparin Sodium (Lovenox) 60 mg SC Q12H [facility]; Protocol Last Admin: 05/19/18 21:00 Dose: Not Given Mirtazapine (Remeron) 15 mg PO HS [facility] Last Admin: 05/29/18 23:24 Dose: Not Given Ondansetron HCl (Zofran Inj) 4 mg IVP Q6H PRN PRN Reason: Nausea/Vomiting Pantoprazole Sodium (Protonix Inj) 40 mg IVP DAILY [facility] Last Admin: 05/30/18 09:31 Dose: 40 mg - Labs Labs: 05/30/18 06:30 05/30/18 06:30 PT 16.4 SECONDS (9.4-12.5) H 05/30/18 06:30 INR 1.42 05/30/18 06:30 APTT 35.2 Seconds (25.1-36.5) 05/16/18 19:12 - Constitutional Appears: Cachectic, Chronically Ill - Head Exam Head Exam: NORMOCEPHALIC - Eye Exam Eye Exam: Normal appearance, PERRL - ENT Exam ENT Exam: Mucous Membranes Moist, Normal Oropharynx - Respiratory Exam Respiratory Exam: Decreased Breath Sounds, NORMAL BREATHING PATTERN - Cardiovascular Exam Cardiovascular Exam: REGULAR RHYTHM, +S1, +S2 - GI/Abdominal Exam GI & Abdominal Exam: Soft, Normal Bowel Sounds - Extremities Exam Additional comments: right knee dressing intact - Skin Skin Exam: Dry, Pallor Assessment and Plan - Assessment and Plan (Free Text) Assessment: 82 year old female with history of CAD,HTN, Right TKA and VRE with prosthesis removal who is admitted with nausea/vomiting,failure to thrive, anemia and thrombocytopenia. The patient is alert, oriented. The [patient states she she choked on piece of corn yesterday and had minor episode of vomiting. Otherwise, she states she has not vomited and is tolerating diet well. She state her right knee is painful when manipulated or not positioned improperly. She states that she wants to go home. She is tired of being in rehabs. Explained that she needs assistance and would benefit from OT/PT. Patient states her daughters are aware of her needs and are working on solution. Goals of care, 15 minutes Plan: Anemia: s/p transfusion PRBC , stable> Hgb 8.4 Thrombocytopenia: improved, PLT 171 Nausea/ vomiting resolved.Tolerating diet well. PPN discontinued. Antibiotic therapy completed as per ID Deconditioning: PT/OT [place] of care
[2018-05-30] MEDS: Digoxin 250 mcg (0.25 mg) Tab PO SCH (15:33)
--- NOTE | 2018-05-30 16:20 | CP.PCM.PN ---
<Praveen Oliveros - Last Filed: 05/30/18 16:17> Subjective - Date & Time of Evaluation Date of Evaluation: 05/30/18 Time of Evaluation: 09:00 - Subjective Subjective: Praveen Oliveros PGY-1 Progress Note for Hospitalist Service Patient seen and evaluated at bedside. No acute events reported overnight. Patient sitting up comfortably in bed and reports having a good night sleep. Patient has been weaned off PPN feeds. Denies chest pain, palpitations, blurry vision, headaches, shortness of breath. Objective - Vital Signs/Intake and Output Vital Signs (last 24 hours): Temp Pulse Resp BP Pulse Ox 98.4 F 76 18 142/66 97 05/30/18 14:00 05/30/18 14:00 05/30/18 14:00 05/30/18 14:00 05/30/18 14:00 Intake and Output: 05/30/18 05/30/18 06:59 18:59 Intake Total 120 Balance 120 - Medications Medications: Current Medications Acetaminophen (Tylenol 325mg Tab) 650 mg PO Q6H PRN PRN Reason: Pain, moderate (4-7) Last Admin: 05/30/18 00:08 Dose: 650 mg Apixaban (Eliquis) 2.5 mg PO BID [facility]; Protocol Last Admin: 05/30/18 09:31 Dose: 2.5 mg Aspirin (Ecotrin) 81 mg PO DAILY [facility] Last Admin: 05/30/18 09:31 Dose: 81 mg Atenolol (Tenormin) 25 mg PO BID [facility] Last Admin: 05/30/18 09:30 Dose: 25 mg Atorvastatin Calcium (Lipitor) 20 mg PO DIN [facility] Last Admin: 05/29/18 17:49 Dose: 20 mg Digoxin (Lanoxin) 0.25 mg PO 1400 [facility] Last Admin: 05/30/18 15:33 Dose: 0.25 mg Enoxaparin Sodium (Lovenox) 60 mg SC Q12H [facility]; Protocol Last Admin: 05/19/18 21:00 Dose: Not Given Mirtazapine (Remeron) 15 mg PO HS [facility] Last Admin: 05/29/18 23:24 Dose: Not Given Ondansetron HCl (Zofran Inj) 4 mg IVP Q6H PRN PRN Reason: Nausea/Vomiting Pantoprazole Sodium (Protonix Inj) 40 mg IVP DAILY [facility] Last Admin: 05/30/18 09:31 Dose: 40 mg - Labs Labs: 05/30/18 06:30 05/30/18 06:30 PT 16.4 SECONDS (9.4-12.5) H 05/30/18 06:30 INR 1.42 05/30/18 06:30 APTT 35.2 Seconds (25.1-36.5) 05/16/18 19:12 - Additional Findings Additional findings: - Constitutional Appears: Non-toxic, No Acute Distress, Pallor - Head Exam Head Exam: ATRAUMATIC, NORMAL INSPECTION, NORMOCEPHALIC - Eye Exam Eye Exam: EOMI, Normal appearance - ENT Exam ENT Exam: Mucous Membranes Moist, Normal Exam - Neck Exam Neck Exam: Full ROM, Normal Inspection - Respiratory Exam Respiratory Exam: Clear to Ausculation Bilateral, NORMAL BREATHING PATTERN. absent: Accessory Muscle Use, Rales, Rhonchi, Wheezes, Respiratory Distress, Stridor - Cardiovascular Exam Cardiovascular Exam: REGULAR RHYTHM, +S1, +S2 - GI/Abdominal Exam GI & Abdominal Exam: Soft, Normal Bowel Sounds. absent: Distended, Firm, Guard ing, Rigid, Tenderness, Organomegaly, Rebound - Extremities Exam Extremities Exam: Normal Capillary Refill, Pedal Edema. 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 PO intake improving, continuing to taper PPN. PLT count improving, on Eliquis. No sign of bleeding. Advancing diet to advanced bite size. Currently tolerating dysphagia diet. Hyperbaric oxygen therapy trial planned for 05/30. Extensive conversation with daughter Nina regarding future steps in care of her mother and our recommendation for rehabilitation. Per Dr. Oliva, patient set to get 30 days of hyperbaric therapy, 2 hours each, M-F. Patient went today. Plan: Anemia, Thrombocytopenia- improved -pt s/p 1 unit prbc, given a dose of erythropoietin -hyperproliferative erythroid response -anemia of chronic disease -iron, b12, folate wnl -PLT 171 improved - began Eliquis 05/26- will continue to monitor thrombocytopenia and increased risk of bleeding -Heme/Onc recs appreciated -medication induced thrombocytopenia; zyvox can cause cytopenias -zyvox dc'd -INR 1.27 -began Eliquis 2.5 mg PO BID 05/26 -Transfused 1 unit PRBC 05/29 after Hgb dropped to 7.2. Continue Eliquis per Dr. Pritchard. Hgb improved to 8.4 05/30. 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 Mi) appreciated -CRP elevated b/c patient is ill; not an accurate assessment of the knee inflammation -will get another CRP -superficial wound cx: pantoea sensitive to many abx: giving bactroban, polymixin, bacitracin ointment -Podiatry: Podiatry will re-evaluate whether patient can be taken to the OR once patient's platelet count has been stabilized. Podiatry will attempt to place patient in Hyperbaric Oxygen Therapy. Ortho 05/29: At this time, given that patient has a periprosthetic infection involving skin, soft tissues and bone, pt would benefit from local wound debridement and hyperbaric therapy if no medical contraindications. If wound heals and infection eradicated, patient would be a candidate for reimplantation. MRI R knee 05/28 - difficult to exclude Osteo. No obvious bone destruction Doppler LLE - no DVT Failure to thrive, dysphagia - improved -PPN has been tapered, but is being supplemented with Ensure. Tolerating diet -Patient's family refusing PEG feeding at this time -Recent completion of 6 week course of Abx: zyvox and daptomycin discontinued -CT chest: no acute findings -CT head: no acute findings -EGD (04/2018): no esophageal pathology or signs of gastric outlet obstruction -repeat speech/swallow eval (05/23) -[employer] recommends trial puree consistency diet with extra gravy and thin liquids -aspiration/reflux precautions -continue TPN until Pt. demonstrates a good percentage of intake with p.o. meals -GI recs appreciated -dysphagia, multifactorial - motility dysfunction, deconditioning -improved mentation and alertness -pt tolerating diet with no issues per nursing - currently dysphagia modified consistency diet with advanced bite size pieces with thin liquid - f/u [employer] recommendations: regular soft diet 05/29 -neurology recommendation- no signs of neuromuscular disorder -tapered off TPN as po intake increased -Neuro recs appreciated - no signs of NM disorder -Palliative recs: POONAM, Jeannette Lowery and I met with patients daughter's Isabel and Marii (both POA's). Family aware of mothers medical situation and poor prognosis. Benefits and burdens of feeding tube discussed at length. Daughters refusing PEG tube, in accordance of mother's AD wishes . Hospice services explained in detail. Questions answered. Daughters conflicted, state they are unable to stay home from their jobs in order to care for their mother. Daughter states that mother does not have the finances to pay for 24 hour aide or go to ID facility. Medicaid application in progress. Atrial fibrillation - Digoxin 0.8 (05/16) - Atenolol 25 mg PO daily - Eliquis 2.5 mg BID CAD - Aspirin - lipitor 20 mg PPx, Diet, Dispostion -DVT ppx: lovenox on hold -Diet: pureed, thin liquid, extra gravy -Dispo: patient clinically improving, tolerating po intake. Continue to taper PPN as PO intake increases. Eliquis began today. Social work: Daughter admits to currently being ill prepared to have patient return home as she does not have appropriate equipment yet. Social work/Case management: plan to speak with [facility] for transportation back and forth from home to hospital for next week if the patient is approved for hyperbaric treatment. will have to reach out to [facility] to see if they can transport patient. Patient's daughter was notified and updated on patient progress and course. F/u discussion with daughter and CM necessary as hyperbaric O2 is outpatient procedure. Patient seen, case reviewed and plan approved by Dr. Hernandez. Praveen Oliveros, PGY-1 <Jay Hernandez - Last Filed: 05/30/18 17:02> Objective - Vital Signs/Intake and Output Vital Signs (last 24 hours): Temp Pulse Resp BP Pulse Ox 98.4 F 76 18 142/66 97 05/30/18 14:00 05/30/18 14:00 05/30/18 14:00 05/30/18 14:00 05/30/18 14:00 Intake and Output: 05/30/18 05/30/18 06:59 18:59 Intake Total 120 Balance 120 - Medications Medications: Current Medications Acetaminophen (Tylenol 325mg Tab) 650 mg PO Q6H PRN PRN Reason: Pain, moderate (4-7) Last Admin: 05/30/18 16:19 Dose: 650 mg Apixaban (Eliquis) 2.5 mg PO BID [facility]; Protocol Last Admin: 05/30/18 09:31 Dose: 2.5 mg Aspirin (Ecotrin) 81 mg PO DAILY [facility] Last Admin: 05/30/18 09:31 Dose: 81 mg Atenolol (Tenormin) 25 mg PO BID [facility] Last Admin: 05/30/18 09:30 Dose: 25 mg Atorvastatin Calcium (Lipitor) 20 mg PO DIN [facility] Last Admin: 05/29/18 17:49 Dose: 20 mg Digoxin (Lanoxin) 0.25 mg PO 1400 [facility] Last Admin: 05/30/18 15:33 Dose: 0.25 mg Enoxaparin Sodium (Lovenox) 60 mg SC Q12H [facility]; Protocol Last Admin: 05/19/18 21:00 Dose: Not Given Mirtazapine (Remeron) 15 mg PO HS [facility] Last Admin: 05/29/18 23:24 Dose: Not Given Ondansetron HCl (Zofran Inj) 4 mg IVP Q6H PRN PRN Reason: Nausea/Vomiting Pantoprazole Sodium (Protonix Inj) 40 mg IVP DAILY [facility] Last Admin: 05/30/18 09:31 Dose: 40 mg - Labs Labs: 05/30/18 06:30 05/30/18 06:30 PT 16.4 SECONDS (9.4-12.5) H 05/30/18 06:30 INR 1.42 05/30/18 06:30 APTT 35.2 Seconds (25.1-36.5) 05/16/18 19:12 Attending/Attestation - Attestation I have personally seen and examined this patient.: Yes I have fully participated in the care of the patient.: Yes I have reviewed all pertinent clinical information, including history, physical exam and plan: Yes Notes (Text): 05/30/18 16:59 82 year old female with past medical history of afib previously on coumadin, CAD, hypertension, right TKA, complicated by VRE with prosthesis removal who presented with intractable vomiting and failure to thrive. Family had been refusing PEG tube placement as per mother's wishes. She was initially started on TPN which was tapered off once she has been eating more. ID, podiatry and orthopedics are following as well. Patient has completed 6 weeks course of antibiotics. MRI knee was reviewed. Patient will start hyperbaric oxygen therapy today; may need 30 days treatment as per podiatry. Hematology is also following for chronic anemia. Hemoglobin improved after one prbc transfusion yesterday. Monitor h/h closely while patient is on eliquis for afib. Thrombocytopenia has improved. Today I had extensive conversation with patient's daughter regarding d/c planning. Daughter feels patient is not ready to go home yet due to weakness and needs more PT. She also feels she is not able to adequately care for mother alone and may need additional services or transport arrangement for outpatient hyperbaric treatment. I recommended JAKE as per PT recommendations which gerson padilla had been initially refusing. This was also discussed with complex case manager and neonatal social worker. Patient is DNR/DNI. Jay Hernandez MD Hospitalist.
--- NOTE | 2018-05-30 18:11 | CP.PCM.PN ---
<Brown Jeronimo - Last Filed: 05/30/18 18:08> Subjective - Date & Time of Evaluation Date of Evaluation: 05/30/18 Time of Evaluation: 18:11 - Subjective Subjective: Podiatry progress note for Dr. Philip 82 y/o female seen and evaluated at bedside. Patient was resting in her bed. Patient states that the pain in her right knee incision site is unbearable when anyone try to move the the right leg. Patient denies any overnight complaints of F/N/V/SOB/chills. patient denies any other pedal complaint at this time. Objective - Vital Signs/Intake and Output Vital Signs (last 24 hours): Temp Pulse Resp BP Pulse Ox 98.4 F 76 18 142/66 97 05/30/18 14:00 05/30/18 17:32 05/30/18 14:00 05/30/18 17:32 05/30/18 14:00 Intake and Output: 05/30/18 05/30/18 06:59 18:59 Intake Total 120 Balance 120 - Medications Medications: Current Medications Acetaminophen (Tylenol 325mg Tab) 650 mg PO Q6H PRN PRN Reason: Pain, moderate (4-7) Last Admin: 05/30/18 16:19 Dose: 650 mg Apixaban (Eliquis) 2.5 mg PO BID [facility]; Protocol Last Admin: 05/30/18 17:32 Dose: 2.5 mg Aspirin (Ecotrin) 81 mg PO DAILY [facility] Last Admin: 05/30/18 09:31 Dose: 81 mg Atenolol (Tenormin) 25 mg PO BID [facility] Last Admin: 05/30/18 17:32 Dose: 25 mg Atorvastatin Calcium (Lipitor) 20 mg PO DIN [facility] Last Admin: 05/30/18 17:32 Dose: 20 mg Digoxin (Lanoxin) 0.25 mg PO 1400 [facility] Last Admin: 05/30/18 15:33 Dose: 0.25 mg Enoxaparin Sodium (Lovenox) 60 mg SC Q12H [facility]; Protocol Last Admin: 05/19/18 21:00 Dose: Not Given Mirtazapine (Remeron) 15 mg PO HS [facility] Last Admin: 05/29/18 23:24 Dose: Not Given Ondansetron HCl (Zofran Inj) 4 mg IVP Q6H PRN PRN Reason: Nausea/Vomiting Pantoprazole Sodium (Protonix Inj) 40 mg IVP DAILY [facility] Last Admin: 05/30/18 09:31 Dose: 40 mg - Labs Labs: 05/30/18 06:30 05/30/18 06:30 PT 16.4 SECONDS (9.4-12.5) H 05/30/18 06:30 INR 1.42 05/30/18 06:30 APTT 35.2 Seconds (25.1-36.5) 05/16/18 19:12 - Constitutional Appears: No Acute Distress - Head Exam Head Exam: ATRAUMATIC, NORMOCEPHALIC - Extremities Exam Additional comments: R LE focused exam: Vasc: DP/PT faintly palpable. Cap refill< 3 sec to all digits. Temp gradient warm to cool. No edema. Multiple ecchymotic patches extends from the periwound area at the knee joint all the way down to the R ankle. Mild Periwound erythema noted. Neuro: Gross and protective sensations are intact. Derm: An open wound measures [id number]. Moderate serous drainage noted. No malodor. Base is mostly fibro-granular. No probe to bone, no tracking or undermining. Periwound erythema and ecchymosis noted. Positive clinical signs of infection. Wound regressing as skin appears to darken in color periwound and down the leg. MSK: Severe pain on palpating the periwound area. Muscle power around the knee joint couldn't be assessed due to pain and guarding. Passive and active ROM could be performed with guarding at the level of the R foot and ankle. - Neurological Exam Neurological Exam: Alert, Awake, Oriented x3 Assessment and Plan - Assessment and Plan (Free Text) Assessment: 82 y/o female patient with infected right knee wound and osteomyelitis Plan: Patient seen and evaluated for attending Dr. Philip Plan discussed with attending Dr. Philip Charts, labs and vitals reviewed; Afebrile, No leukocytosis Wound culture; Pantonea Species Wound dressed with xeroform, 4X4 gauze, ABD and taped down as lifting leg is too painful for patient Multipodus boot is in place. Right knee x-ray - prosthesis removed, cement spacer in place Continue medical management per medicine and ID team Patient not a surgical candidate for wound debridement at this time as patient's platelet count is low Patient to received HBO thetrapy today LE venous duplex; No evidence of DVT. R knee MRI: OM can't be excluded despite there is no obvious bony erosions Patient will need at least 4 weeks of HBO therapy Podiatry will continue to follow patient while in house. <TameraThai - Last Filed: 05/31/18 08:39> Objective - Vital Signs/Intake and Output Vital Signs (last 24 hours): Temp Pulse Resp BP Pulse Ox 98.4 F 76 18 142/66 97 05/30/18 14:00 05/30/18 17:32 05/30/18 14:00 05/30/18 17:32 05/30/18 14:00 - Medications Medications: Current Medications Acetaminophen (Tylenol 325mg Tab) 650 mg PO Q6H PRN PRN Reason: Pain, moderate (4-7) Last Admin: 05/30/18 16:19 Dose: 650 mg Apixaban (Eliquis) 2.5 mg PO BID [facility]; Protocol Last Admin: 05/30/18 17:32 Dose: 2.5 mg Aspirin (Ecotrin) 81 mg PO DAILY [facility] Last Admin: 05/30/18 09:31 Dose: 81 mg Atenolol (Tenormin) 25 mg PO BID [facility] Last Admin: 05/30/18 17:32 Dose: 25 mg Atorvastatin Calcium (Lipitor) 20 mg PO DIN [facility] Last Admin: 05/30/18 17:32 Dose: 20 mg Digoxin (Lanoxin) 0.25 mg PO 1400 [facility] Last Admin: 05/30/18 15:33 Dose: 0.25 mg Enoxaparin Sodium (Lovenox) 60 mg SC Q12H [facility]; Protocol Last Admin: 05/19/18 21:00 Dose: Not Given Mirtazapine (Remeron) 15 mg PO HS [facility] Last Admin: 05/30/18 21:15 Dose: Not Given Ondansetron HCl (Zofran Inj) 4 mg IVP Q6H PRN PRN Reason: Nausea/Vomiting Pantoprazole Sodium (Protonix Inj) 40 mg IVP DAILY [facility] Last Admin: 05/30/18 09:31 Dose: 40 mg - Labs Labs: 05/31/18 07:00 05/31/18 07:00 PT 16.7 SECONDS (9.4-12.5) H 05/31/18 07:00 INR 1.44 05/31/18 07:00 APTT 35.2 Seconds (25.1-36.5) 05/16/18 19:12 Attending/Attestation - Attestation I have personally seen and examined this patient.: Yes I have fully participated in the care of the patient.: Yes I have reviewed all pertinent clinical information, including history, physical exam and plan: Yes
--- NOTE | 2018-05-31 06:50 | CP.PCM.PN ---
<Hola Willis L - Last Filed: 05/31/18 17:44> Subjective - Date & Time of Evaluation Date of Evaluation: 05/31/18 Time of Evaluation: 06:50 - Subjective Subjective: Resident Progress Note for Hospitalist Service Patient examined at bedside. No acute events overnight. Patient offers no complaints at this time. Denies fevers, chills, chest pain, shortness of breath, abdominal pain, changes in bowel movements. Objective - Vital Signs/Intake and Output Vital Signs (last 24 hours): Temp Pulse Resp BP Pulse Ox 98.4 F 76 18 142/66 97 05/30/18 14:00 05/30/18 17:32 05/30/18 14:00 05/30/18 17:32 05/30/18 14:00 Intake and Output: 05/30/18 05/31/18 18:59 06:59 Intake Total 1020 Balance 1020 - Medications Medications: Current Medications Acetaminophen (Tylenol 325mg Tab) 650 mg PO Q6H PRN PRN Reason: Pain, moderate (4-7) Last Admin: 05/30/18 16:19 Dose: 650 mg Apixaban (Eliquis) 2.5 mg PO BID [facility]; Protocol Last Admin: 05/30/18 17:32 Dose: 2.5 mg Aspirin (Ecotrin) 81 mg PO DAILY [facility] Last Admin: 05/30/18 09:31 Dose: 81 mg Atenolol (Tenormin) 25 mg PO BID [facility] Last Admin: 05/30/18 17:32 Dose: 25 mg Atorvastatin Calcium (Lipitor) 20 mg PO DIN [facility] Last Admin: 05/30/18 17:32 Dose: 20 mg Digoxin (Lanoxin) 0.25 mg PO 1400 [facility] Last Admin: 05/30/18 15:33 Dose: 0.25 mg Enoxaparin Sodium (Lovenox) 60 mg SC Q12H [facility]; Protocol Last Admin: 05/19/18 21:00 Dose: Not Given Mirtazapine (Remeron) 15 mg PO HS [facility] Last Admin: 05/30/18 21:15 Dose: Not Given Ondansetron HCl (Zofran Inj) 4 mg IVP Q6H PRN PRN Reason: Nausea/Vomiting Pantoprazole Sodium (Protonix Inj) 40 mg IVP DAILY [facility] Last Admin: 05/30/18 09:31 Dose: 40 mg - Labs Labs: 05/30/18 06:30 05/30/18 06:30 PT 16.4 SECONDS (9.4-12.5) H 05/30/18 06:30 INR 1.42 05/30/18 06:30 APTT 35.2 Seconds (25.1-36.5) 05/16/18 19:12 - Additional Findings Additional findings: - Head Exam Head Exam: ATRAUMATIC, NORMAL INSPECTION, NORMOCEPHALIC - Eye Exam Eye Exam: EOMI, Normal appearance - ENT Exam ENT Exam: Mucous Membranes Moist, Normal Exam - Neck Exam Neck Exam: Full ROM, Normal Inspection - Respiratory Exam Respiratory Exam: Clear to Ausculation Bilateral, NORMAL BREATHING PATTERN. absent: Accessory Muscle Use, Rales, Rhonchi, Wheezes, Respiratory Distress, Stridor - Cardiovascular Exam Cardiovascular Exam: REGULAR RHYTHM, +S1, +S2 - GI/Abdominal Exam GI & Abdominal Exam: Soft, Normal Bowel Sounds. absent: Distended, Firm, Guarding, Rigid, Tenderness, Organomegaly, Rebound - Extremities Exam Extremities Exam: Normal Capillary Refill, Pedal Edema. 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 PO intake improving, continuing to taper PPN. PLT count improving, on Eliquis. No sign of bleeding. Advancing diet to advanced bite size. Currently tolerating dysphagia diet. Hyperbaric oxygen therapy trial planned for 05/30. Extensive conversation with daughter Nina regarding future steps in care of her mother and our recommendation for rehabilitation. Per Dr. Oliva, patient set to get 30 days of hyperbaric therapy, 2 hours each, M-F. Plan: Anemia, Thrombocytopenia- improved -pt s/p 1 unit prbc, given a dose of erythropoietin -hyperproliferative erythroid response -anemia of chronic disease -iron, b12, folate wnl -PLT 171 improved - began Eliquis 05/26- will continue to monitor thrombocytopenia and increased risk of bleeding -Heme/Onc recs appreciated -medication induced thrombocytopenia; zyvox can cause cytopenias -zyvox dc'd -INR 1.27 -began Eliquis 2.5 mg PO BID 05/26 -Transfused 1 unit PRBC 05/29 after Hgb dropped to 7.2. Continue Eliquis per Dr. Pritchard. Hgb improved to 8.4 05/30. 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 Mi) appreciated -CRP elevated b/c patient is ill; not an accurate assessment of the knee inflammation -will get another CRP -superficial wound cx: pantoea sensitive to many abx: giving bactroban, polym ixin, bacitracin ointment -Podiatry: Podiatry will re-evaluate whether patient can be taken to the OR once patient's platelet count has been stabilized. Podiatry will attempt to place patient in Hyperbaric Oxygen Therapy. Ortho 05/29: At this time, given that patient has a periprosthetic infection involving skin, soft tissues and bone, pt would benefit from local wound debridement and hyperbaric therapy if no medical contraindications. If wound heals and infection eradicated, patient would be a candidate for reimplantation. MRI R knee 05/28 - difficult to exclude Osteo. No obvious bone destruction Doppler LLE - no DVT Failure to thrive, dysphagia - improved -PPN has been tapered, but is being supplemented with Ensure. Tolerating diet -Patient's family refusing PEG feeding at this time -Recent completion of 6 week course of Abx: zyvox and daptomycin discontinued -CT chest: no acute findings -CT head: no acute findings -EGD (04/2018): no esophageal pathology or signs of gastric outlet obstruction -repeat speech/swallow eval (05/23) -TELEPHONE LINEWORKER recommends trial puree consistency diet with extra gravy and thin liquids -aspiration/reflux precautions -continue TPN until Pt. demonstrates a good percentage of intake with p.o. meals -GI recs appreciated -dysphagia, multifactorial - motility dysfunction, deconditioning -improved mentation and alertness -pt tolerating diet with no issues per nursing - currently dysphagia modified consistency diet with advanced bite size pieces with thin liquid - f/u Accounts Receivable Collector recommendations: regular soft diet 05/29 -neurology recommendation- no signs of neuromuscular disorder -tapered off TPN as po intake increased -Neuro recs appreciated - no signs of NM disorder -Palliative recs: POONAM, Jeannette Lowery and I met with patients daughter's Isabel and Marii (both POA's). Family aware of mothers medical situation and poor prognosis. Benefits and burdens of feeding tube discussed at length. Daughters refusing PEG tube, in accordance of mother's AD wishes . Hospice services explained in detail. Questions answered. Daughters conflicted, state they are unable to stay home from their jobs in order to care for their mother. Daughter states that mother does not have the finances to pay for 24 hour aide or go to [place] facility. Medicaid application in progress. Atrial fibrillation - Digoxin 0.8 (05/16) - Atenolol 25 mg PO daily - Eliquis 2.5 mg BID CAD - Aspirin - lipitor 20 mg PPx, Diet, Dispostion -DVT ppx: lovenox on hold -Diet: pureed, thin liquid, extra gravy -Dispo: patient clinically improving, tolerating po intake. Continue to taper PPN as PO intake increases. Eliquis began today. Social work: Daughter admits to currently being ill prepared to have patient return home as she does not have appropriate equipment yet. Social work/Case management: plan to speak with [facility] for transportation back and forth from home to hospital for next week if the patient is approved for hyperbaric treatment. will have to reach out to [facility] to see if they can transport patient. Patient's daughter was notified and updated on patient progress and course. F/u discussion with daughter and CM necessary as hyperbaric O2 is outpatient procedure. Patient seen, case reviewed and plan approved by Dr. David Willis PGY-1 <aJy Hernandez - Last Filed: 05/31/18 17:51> Objective - Vital Signs/Intake and Output Vital Signs (last 24 hours): Temp Pulse Resp BP Pulse Ox 98.2 F 59 L 20 130/63 97 05/31/18 14:00 05/31/18 14:00 05/31/18 14:00 05/31/18 14:00 05/31/18 14:00 - Medications Medications: Current Medications Acetaminophen (Tylenol 325mg Tab) 650 mg PO Q6H PRN PRN Reason: Pain, moderate (4-7) Last Admin: 05/30/18 16:19 Dose: 650 mg Apixaban (Eliquis) 2.5 mg PO BID [facility]; Protocol Last Admin: 05/31/18 17:36 Dose: 2.5 mg Aspirin (Ecotrin) 81 mg PO DAILY [facility] Last Admin: 05/31/18 11:25 Dose: 81 mg Atenolol (Tenormin) 25 mg PO BID [facility] Last Admin: 05/31/18 17:35 Dose: Not Given Atorvastatin Calcium (Lipitor) 20 mg PO DIN [facility] Last Admin: 05/31/18 17:42 Dose: 20 mg Digoxin (Lanoxin) 0.25 mg PO 1400 [facility] Last Admin: 05/31/18 16:03 Dose: Not Given Enoxaparin Sodium (Lovenox) 60 mg SC Q12H [facility]; Protocol Last Admin: 05/19/18 21:00 Dose: Not Given Mirtazapine (Remeron) 15 mg PO HS [facility] Last Admin: 05/30/18 21:15 Dose: Not Given Ondansetron HCl (Zofran Inj) 4 mg IVP Q6H PRN PRN Reason: Nausea/Vomiting Pantoprazole Sodium (Protonix Inj) 40 mg IVP DAILY [facility] Last Admin: 05/31/18 11:25 Dose: 40 mg - Labs Labs: 05/31/18 07:00 05/31/18 07:00 PT 16.7 SECONDS (9.4-12.5) H 05/31/18 07:00 INR 1.44 05/31/18 07:00 APTT 35.2 Seconds (25.1-36.5) 05/16/18 19:12 Attending/Attestation - Attestation I have personally seen and examined this patient.: Yes I have fully participated in the care of the patient.: Yes I have reviewed all pertinent clinical information, including history, physical exam and plan: Yes Notes (Text): 05/31/18 17:48 82 year old female with past medical history of afib previously on coumadin, CAD, hypertension, right TKA, complicated by VRE with prosthesis removal who presented with intractable vomiting and failure to thrive. Family had been refusing PEG tube placement as per mother's wishes. She was initially started on TPN which was tapered off once she has been eating more. ID, podiatry and orthopedics are following as well. Patient has completed 6 weeks course of antibiotics. MRI knee was reviewed. Patient has started hyperbaric oxygen therapy yesterday; may need 30 days treatment as per podiatry. Hematology is also following for chronic anemia. Hemoglobin improved after one prbc transfusion earlier this week. Monitor h/h closely while patient is on eliquis for afib. Thrombocytopenia has improved. Will need to discuss with field nurse case manager, social studies teacher and daughter regarding d/c planning next week either home with services vs rehab. Patient may also need transport arrangement set up for outpatient hyperbaric treatment. Patient is DNR/DNI. Jay Hernandez MD Hospitalist.
[2018-05-31 08:10] LABS: BASO # 0.06 K/mm3 (0.0-2.0); BASO % 0.9 % (0.0-3.0); EOS % 0.6 % (1.5-5.0); GRAN # 4.69 (1.4-6.5); GRAN % 72.6 % (50.0-68.0); LYMPH # 0.9 (1.2-3.4); LYMPH % 13.8 % (22.0-35.0); MEAN CELL VOLUME 88.1 fl (80.0-105.0); MEAN CORPUSCULAR HEMOGLOBIN 28.1 pg (25.0-35.0); MEAN CORPUSCULAR HGB CONC 31.9 g/dl (31.0-37.0); MEAN PLATELET VOLUME 10.9 fl (7.0-11.0); MONO # 0.8 (0.1-0.6); MONO % 12.1 % (1.0-6.0); RBC 3.2 10^6/uL (3.5-6.1); RED CELL DISTRIBUTION WIDTH 18.7 % (11.5-14.5); WHITE BLOOD COUNT 6.5 10^3/uL (4.5-11.0)
[2018-05-31 08:11] LABS: INR 1.44; PROTHROMBIN TIME 16.7 SECONDS (9.4-12.5)
[2018-05-31 08:12] LABS: ALB/GLOB RATIO 0.9 (1.1-1.8); ALBUMIN 2.6 g/dL (3.0-4.8); ALT/SGPT 68 U/L (7-56); AST/SGOT 30 U/L (14-36); BLOOD UREA NITROGEN 10 mg/dL (7-21); GFR NON-AFRICAN AMERICAN > 60
--- NOTE | 2018-05-31 11:20 | CP.PCM.PN ---
<Brown Jeronimo - Last Filed: 05/31/18 11:17> Subjective - Date & Time of Evaluation Date of Evaluation: 05/31/18 Time of Evaluation: 11:17 - Subjective Subjective: Podiatry progress note for Dr. Philip 82 y/o female seen and evaluated at bedside for infected right knee wound and osteomyelitis. Patient was resting in her bed. Patient states that the pain in her right knee incision site is improving and well controlled now. She states that she went yesterday to the hyperbaric oxygen therapy and after this she was sleepy the whole day. Patient denies any overnight complaints of F/N/V/SOB/chills. patient denies any other pedal complaint at this time. Objective - Vital Signs/Intake and Output Vital Signs (last 24 hours): Temp Pulse Resp BP Pulse Ox 97.6 F 57 L 20 115/57 L 98 05/31/18 06:00 05/31/18 06:00 05/31/18 06:00 05/31/18 06:00 05/31/18 06:00 - Medications Medications: Current Medications Acetaminophen (Tylenol 325mg Tab) 650 mg PO Q6H PRN PRN Reason: Pain, moderate (4-7) Last Admin: 05/30/18 16:19 Dose: 650 mg Apixaban (Eliquis) 2.5 mg PO BID [facility]; Protocol Last Admin: 05/30/18 17:32 Dose: 2.5 mg Aspirin (Ecotrin) 81 mg PO DAILY [facility] Last Admin: 05/30/18 09:31 Dose: 81 mg Atenolol (Tenormin) 25 mg PO BID [facility] Last Admin: 05/30/18 17:32 Dose: 25 mg Atorvastatin Calcium (Lipitor) 20 mg PO DIN [facility] Last Admin: 05/30/18 17:32 Dose: 20 mg Digoxin (Lanoxin) 0.25 mg PO 1400 [facility] Last Admin: 05/30/18 15:33 Dose: 0.25 mg Enoxaparin Sodium (Lovenox) 60 mg SC Q12H [facility]; Protocol Last Admin: 05/19/18 21:00 Dose: Not Given Mirtazapine (Remeron) 15 mg PO HS [facility] Last Admin: 05/30/18 21:15 Dose: Not Given Ondansetron HCl (Zofran Inj) 4 mg IVP Q6H PRN PRN Reason: Nausea/Vomiting Pantoprazole Sodium (Protonix Inj) 40 mg IVP DAILY [facility] Last Admin: 05/30/18 09:31 Dose: 40 mg - Labs Labs: 05/31/18 07:00 05/31/18 07:00 PT 16.7 SECONDS (9.4-12.5) H 05/31/18 07:00 INR 1.44 05/31/18 07:00 APTT 35.2 Seconds (25.1-36.5) 05/16/18 19:12 - Constitutional Appears: Well, No Acute Distress - Head Exam Head Exam: ATRAUMATIC, NORMOCEPHALIC - Extremities Exam Additional comments: R LE focused exam: Vasc: DP/PT faintly palpable. Cap refill< 3 sec to all digits. Temp gradient warm to cool. No edema. Multiple ecchymotic patches extends from the periwound area at the knee joint all the way down to the R ankle. Mild Periwound erythema noted. Neuro: Gross and protective sensations are intact. Derm: An open wound measures [id number]. Moderate serous drainage noted. No malodor. Base is mostly fibro-granular. No probe to bone, no tracking or undermining. Periwound erythema and ecchymosis noted. Positive clinical signs of infection. Wound regressing as skin appears to darken in color periwound and down the leg. MSK: Pain on palpating the periwound area. Muscle power around the knee joint couldn't be assessed due to pain and guarding. Passive and active ROM could be performed with guarding at the level of the R foot and ankle. - Neurological Exam Neurological Exam: Alert, Awake, Oriented x3 - Psychiatric Exam Psychiatric exam: Normal Affect Assessment and Plan - Assessment and Plan (Free Text) Assessment: 82 y/o female patient with infected right knee wound and osteomyelitis Plan: Patient seen and evaluated with attending Dr. Philip Plan discussed with attending Dr. Philip Charts, labs and vitals reviewed; Afebrile, No leukocytosis Wound culture; Pantonea Species Wound dressed with xeroform, 4X4 gauze, ABD and taped down as lifting leg is too painful for patient Multipodus boot is in place. Right knee x-ray - prosthesis removed, cement spacer in place Continue medical management per medicine and ID team Patient not a surgical candidate for wound debridement at this time as patient's platelet count is low Patient received HBO therapy yesterday LE venous duplex; No evidence of DVT. R knee MRI: OM can't be excluded despite there is no obvious bony erosions Patient will need at least 4 weeks of HBO therapy Podiatry will continue to follow patient while in house. <Thai Philip - Last Filed: 05/31/18 13:05> Objective - Vital Signs/Intake and Output Vital Signs (last 24 hours): Temp Pulse Resp BP Pulse Ox 97.6 F 57 L 20 115/57 L 98 05/31/18 06:00 05/31/18 06:00 05/31/18 06:00 05/31/18 06:00 05/31/18 06:00 - Medications Medications: Current Medications Acetaminophen (Tylenol 325mg Tab) 650 mg PO Q6H PRN PRN Reason: Pain, moderate (4-7) Last Admin: 05/30/18 16:19 Dose: 650 mg Apixaban (Eliquis) 2.5 mg PO BID [facility]; Protocol Last Admin: 05/31/18 11:25 Dose: 2.5 mg Aspirin (Ecotrin) 81 mg PO DAILY [facility] Last Admin: 05/31/18 11:25 Dose: 81 mg Atenolol (Tenormin) 25 mg PO BID [facility] Last Admin: 05/31/18 11:25 Dose: 25 mg Atorvastatin Calcium (Lipitor) 20 mg PO DIN [facility] Last Admin: 05/30/18 17:32 Dose: 20 mg Digoxin (Lanoxin) 0.25 mg PO 1400 [facility] Last Admin: 05/30/18 15:33 Dose: 0.25 mg Enoxaparin Sodium (Lovenox) 60 mg SC Q12H [facility]; Protocol Last Admin: 05/19/18 21:00 Dose: Not Given Mirtazapine (Remeron) 15 mg PO HS [facility] Last Admin: 05/30/18 21:15 Dose: Not Given Ondansetron HCl (Zofran Inj) 4 mg IVP Q6H PRN PRN Reason: Nausea/Vomiting Pantoprazole Sodium (Protonix Inj) 40 mg IVP DAILY [facility] Last Admin: 05/31/18 11:25 Dose: 40 mg - Labs Labs: 05/31/18 07:00 05/31/18 07:00 PT 16.7 SECONDS (9.4-12.5) H 05/31/18 07:00 INR 1.44 05/31/18 07:00 APTT 35.2 Seconds (25.1-36.5) 05/16/18 19:12 Attending/Attestation - Attestation I have personally seen and examined this patient.: Yes I have fully participated in the care of the patient.: Yes I have reviewed all pertinent clinical information, including history, physical exam and plan: Yes
--- NOTE | 2018-05-31 11:51 | PN ---
DATE: 05/31/2018 SUBJECTIVE: The patient is in bed, in no acute distress, nontoxic. PHYSICAL EXAMINATION: VITAL SIGNS: On exam, temperature is 98, blood pressure is 140/60 and respiratory rate of 18. HEENT: Unremarkable. NECK: Supple. LUNGS: Have decreased breath sounds. HEART: Normal S1 and S2. ABDOMEN: Soft and nontender. LABORATORY EXAMINATION: Reviewed. ASSESSMENT AND PLAN: This is an 82-year-old female, admitted initially with nausea and vomiting, lactic acidosis, gastrointestinal issues who was treated with 6 weeks of Zyvox and currently off of antibiotics, afebrile and appetite is improving. The patient has an antibiotic spacers off of antibiotics, currently awaiting. Garima Cobos's note is reviewed from yesterday. nutritionally more improved. We will address medical issues. Dominick Simeon MD
[2018-05-31] MEDS: Digoxin 250 mcg (0.25 mg) Tab PO SCH (16:03)
--- NOTE | 2018-05-31 20:45 | CP.PCM.PN ---
Subjective - Date & Time of Evaluation Date of Evaluation: 05/30/18 Time of Evaluation: 09:00 - Subjective Subjective: SUBJECTIVE: She is comfortable in bed, in no acute distress. No events overnight. She is sitting up. PPN is weaned off. Denies any shortness of breath. No chest pain. Hemoglobin improved with transfusion. PHYSICAL EXAMINATION: GENERAL: Comfortable in bed, in no acute distress. VITAL SIGNS: reviewed. HEENT: pallor positive. NECK: No lymphadenopathy. CHEST: Air entry present and equal bilateral. No added sound. CARDIOVASCULAR: S1 and S2 normal. No murmur. No gallop. ABDOMEN: Soft, nontender. No hepatosplenomegaly. EXTREMITIES: No edema. LABORATORY DATA: reviewed. MEDICATIONS: Reviewed. Currently on aspirin, Eliquis, digoxin, and Lipitor 20 mg daily. ASSESSMENT: 1. Severe anemia. 2. Infected prosthesis removal, wound infection. 3. Atrial fibrillation. 4. Coronary artery disease. 5. On anticoagulation. PLAN: Anemia related to anemia of chronic disease. Renal functions are normal. She has received several units of blood transfusion during this hospitalization. Currently, on anticoagulation with Eliquis, . She also developed thrombocytopenia likely related to medications, PRBC as needed for Hb less than 8 gm/dl. Brianna Pritchard MD Objective - Vital Signs/Intake and Output Vital Signs (last 24 hours): Temp Pulse Resp BP Pulse Ox 98.2 F 59 L 20 130/63 97 05/31/18 14:00 05/31/18 14:00 05/31/18 14:00 05/31/18 14:00 05/31/18 14:00 - Medications Medications: Current Medications Acetaminophen (Tylenol 325mg Tab) 650 mg PO Q6H PRN PRN Reason: Pain, moderate (4-7) Last Admin: 05/30/18 16:19 Dose: 650 mg Apixaban (Eliquis) 2.5 mg PO BID [facility]; Protocol Last Admin: 05/31/18 17:36 Dose: 2.5 mg Aspirin (Ecotrin) 81 mg PO DAILY [facility] Last Admin: 05/31/18 11:25 Dose: 81 mg Atenolol (Tenormin) 25 mg PO BID [facility] Atorvastatin Calcium (Lipitor) 20 mg PO DIN [facility] Last Admin: 05/31/18 17:42 Dose: 20 mg Digoxin (Lanoxin) 0.25 mg PO 1400 [facility] Last Admin: 05/31/18 16:03 Dose: Not Given Enoxaparin Sodium (Lovenox) 60 mg SC Q12H [facility]; Protocol Last Admin: 05/19/18 21:00 Dose: Not Given Mirtazapine (Remeron) 15 mg PO HS [facility] Last Admin: 05/30/18 21:15 Dose: Not Given Ondansetron HCl (Zofran Inj) 4 mg IVP Q6H PRN PRN Reason: Nausea/Vomiting Pantoprazole Sodium (Protonix Inj) 40 mg IVP DAILY [facility] Last Admin: 05/31/18 11:25 Dose: 40 mg - Labs Labs: 05/31/18 07:00 05/31/18 07:00 PT 16.7 SECONDS (9.4-12.5) H 05/31/18 07:00 INR 1.44 05/31/18 07:00 APTT 35.2 Seconds (25.1-36.5) 05/16/18 19:12
--- NOTE | 2018-05-31 20:49 | CP.PCM.PN ---
Subjective - Date & Time of Evaluation Date of Evaluation: 05/31/18 Time of Evaluation: 10:00 - Subjective Subjective: SUBJECTIVE: She is comfortable in bed, in no acute distress. No events overnight. She is sitting up. PPN is weaned off. Denies any shortness of breath. No chest pain. Hemoglobin improved with transfusion. She has osteomyelitis, wound infection treated with antibiotics. PHYSICAL EXAMINATION: GENERAL: Comfortable in bed, in no acute distress. VITAL SIGNS: reviewed. HEENT: pallor positive. NECK: No lymphadenopathy. CHEST: Air entry present and equal bilateral. No added sound. CARDIOVASCULAR: S1 and S2 normal. No murmur. No gallop. ABDOMEN: Soft, nontender. No hepatosplenomegaly. EXTREMITIES: No edema. LABORATORY DATA: reviewed. MEDICATIONS: Reviewed. Currently on aspirin, Eliquis, digoxin, and Lipitor 20 mg daily. ASSESSMENT: 1. Severe anemia. 2. Infected prosthesis removal, wound infection. 3. Atrial fibrillation. 4. Coronary artery disease. 5. On anticoagulation. PLAN: Anemia related to anemia of chronic disease. Hb improved to 9.4 gm/dl today. Renal functions are normal. She has received several units of blood transfusion during this hospitalization. Currently, on anticoagulation with Eliquis, . Platelet count normal. PRBC as needed for Hb less than 8 gm/dl. On HBO. Brianna Pritchard MD Objective - Vital Signs/Intake and Output Vital Signs (last 24 hours): Temp Pulse Resp BP Pulse Ox 98.2 F 59 L 20 130/63 97 05/31/18 14:00 05/31/18 14:00 05/31/18 14:00 05/31/18 14:00 05/31/18 14:00 - Medications Medications: Current Medications Acetaminophen (Tylenol 325mg Tab) 650 mg PO Q6H PRN PRN Reason: Pain, moderate (4-7) Last Admin: 05/30/18 16:19 Dose: 650 mg Apixaban (Eliquis) 2.5 mg PO BID [facility]; Protocol Last Admin: 05/31/18 17:36 Dose: 2.5 mg Aspirin (Ecotrin) 81 mg PO DAILY [facility] Last Admin: 05/31/18 11:25 Dose: 81 mg Atenolol (Tenormin) 25 mg PO BID [facility] Atorvastatin Calcium (Lipitor) 20 mg PO DIN [facility] Last Admin: 05/31/18 17:42 Dose: 20 mg Digoxin (Lanoxin) 0.25 mg PO 1400 [facility] Last Admin: 05/31/18 16:03 Dose: Not Given Enoxaparin Sodium (Lovenox) 60 mg SC Q12H [facility]; Protocol Last Admin: 05/19/18 21:00 Dose: Not Given Mirtazapine (Remeron) 15 mg PO HS [facility] Last Admin: 05/30/18 21:15 Dose: Not Given Ondansetron HCl (Zofran Inj) 4 mg IVP Q6H PRN PRN Reason: Nausea/Vomiting Pantoprazole Sodium (Protonix Inj) 40 mg IVP DAILY [facility] Last Admin: 05/31/18 11:25 Dose: 40 mg - Labs Labs: 05/31/18 07:00 05/31/18 07:00 PT 16.7 SECONDS (9.4-12.5) H 05/31/18 07:00 INR 1.44 05/31/18 07:00 APTT 35.2 Seconds (25.1-36.5) 05/16/18 19:12
[2018-06-01] MEDS: Pantoprazole 40 mg EC Tab PO SCH (06:33)
--- NOTE | 2018-06-01 07:19 | CP.PCM.PN ---
<AlbaHola L - Last Filed: 06/01/18 15:26> Subjective - Date & Time of Evaluation Date of Evaluation: 06/01/18 Time of Evaluation: 07:30 - Subjective Subjective: Resident Progress Note for Hospitalist Service Patient examined at bedside. Per nursing patient had low heart rate 57-59 bpm overnight. However patient was asymptomatic. This morning patient reports some improvement in leg pain. Denies headache, dizziness, chest pain, shortness of breath, abdominal pain. Objective - Vital Signs/Intake and Output Vital Signs (last 24 hours): Temp Pulse Resp BP Pulse Ox 97.9 F 61 18 123/59 L 97 05/31/18 22:48 05/31/18 22:48 05/31/18 22:48 05/31/18 22:48 05/31/18 22:48 Intake and Output: 06/01/18 06/01/18 06:59 18:59 Intake Total 600 Output Total 600 Balance 0 - Medications Medications: Current Medications Acetaminophen (Tylenol 325mg Tab) 650 mg PO Q6H PRN PRN Reason: Pain, moderate (4-7) Last Admin: 05/30/18 16:19 Dose: 650 mg Apixaban (Eliquis) 2.5 mg PO BID [facility]; Protocol Last Admin: 05/31/18 17:36 Dose: 2.5 mg Aspirin (Ecotrin) 81 mg PO DAILY [facility] Last Admin: 05/31/18 11:25 Dose: 81 mg Atenolol (Tenormin) 25 mg PO BID [facility] Atorvastatin Calcium (Lipitor) 20 mg PO DIN [facility] Last Admin: 05/31/18 17:42 Dose: 20 mg Digoxin (Lanoxin) 0.25 mg PO 1400 [facility] Last Admin: 05/31/18 16:03 Dose: Not Given Enoxaparin Sodium (Lovenox) 60 mg SC Q12H [facility]; Protocol Last Admin: 05/19/18 21:00 Dose: Not Given Mirtazapine (Remeron) 15 mg PO HS [facility] Last Admin: 05/31/18 21:23 Dose: Not Given Ondansetron HCl (Zofran Inj) 4 mg IVP Q6H PRN PRN Reason: Nausea/Vomiting Pantoprazole Sodium (Protonix Ec Tab) 40 mg PO 0600 [facility] Last Admin: 06/01/18 06:33 Dose: 40 mg - Labs Labs: 05/31/18 07:00 05/31/18 07:00 PT 16.7 SECONDS (9.4-12.5) H 05/31/18 07:00 INR 1.44 05/31/18 07:00 APTT 35.2 Seconds (25.1-36.5) 05/16/18 19:12 - Additional Findings Additional findings: - Head Exam Head Exam: ATRAUMATIC, NORMOCEPHALIC - Eye Exam Eye Exam: EOMI, Normal appearance - ENT Exam ENT Exam: Mucous Membranes Moist, Normal Exam - Neck Exam Neck Exam: Full ROM, Normal Inspection - Respiratory Exam Respiratory Exam: Clear to Ausculation Bilateral, NORMAL BREATHING PATTERN - Cardiovascular Exam Cardiovascular Exam: REGULAR RHYTHM, +S1, +S2 - GI/Abdominal Exam GI & Abdominal Exam: Soft, Normal Bowel Sounds - Extremities Exam Extremities Exam: Normal Capillary Refill, Pedal Edema. 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 PO intake improving, continuing to taper PPN. PLT count improving, on Eliquis. No sign of bleeding. Advancing diet to advanced bite size. Currently tolerating dysphagia diet. Hyperbaric oxygen therapy trial planned for 05/30. Extensive conversation with daughter Nina regarding future steps in care of her mother and our recommendation for rehabilitation. Per Dr. Oliva, patient set to get 30 days of hyperbaric therapy, 2 hours each, M-F. Plan: Anemia, Thrombocytopenia- resolved -pt s/p 1 unit prbc, given a dose of erythropoietin -hyperproliferative erythroid response -anemia of chronic disease -iron, b12, folate wnl -began Eliquis 05/26- will continue to monitor thrombocytopenia and increased risk of bleeding -Heme/Onc recs appreciated -medication induced thrombocytopenia; zyvox can cause cytopenias -zyvox dc'd -INR 1.27 -began Eliquis 2.5 mg PO BID 05/26 -Transfused 1 unit PRBC 05/29 after Hgb dropped to 7.2. Continue Eliquis per Dr. Pritchard. 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 Mi) appreciated -CRP elevated b/c patient is ill; not an accurate assessment of the knee inflammation -superficial wound cx: pantoea sensitive to many abx: giving bactroban, polymixin, bacitracin ointment -Podiatry consulted. Recs appreciated. Ortho 05/29: At this time, given that patient has a periprosthetic infection involving skin, soft tissues and bone, pt would benefit from local wound debridement and hyperbaric therapy if no medical contraindications. If wound heals and infection eradicated, patient would be a candidate for reimplantation. MRI R knee 05/28 - difficult to exclude Osteo. No obvious bone destruction Doppler LLE - no DVT Failure to thrive, dysphagia - improved -PPN has been tapered, but is being supplemented with Ensure. Tolerating diet. -Patient's family refusing PEG feeding at this time -Recent completion of 6 week course of Abx: zyvox and daptomycin discontinued -CT chest: no acute findings -CT head: no acute findings -EGD (04/2018): no esophageal pathology or signs of gastric outlet obstruction -repeat speech/swallow eval (05/23) -ELECTRONIC ENGRAVER recommends trial puree consistency diet with extra gravy and thin liquids -aspiration/reflux precautions -GI recs appreciated -dysphagia, multifactorial - motility dysfunction, deconditioning -improved mentation and alertness -pt tolerating diet with no issues per nursing -neurology recommendation- no signs of neuromuscular disorder -Palliative recs: Jeannette LEVIN and I met with patients daughter's Isabel and Marii (both POA's). Family aware of mothers medical situation and poor prognosis. Benefits and burdens of feeding tube discussed at length. Daughters refusing PEG tube, in accordance of mother's AD wishes . Hospice services explained in detail. Questions answered. Daughters conflicted, state they are unable to stay home from their jobs in order to care for their mother. Daughter states that mother does not have the finances to pay for 24 hour aide or go to [facility] facility. Medicaid application in progress. Atrial fibrillation - Digoxin 0.8 (05/16) - Atenolol 25 mg PO daily - Holding parameters placed for digoxin and atenol for low HR - Eliquis 2.5 mg BID CAD - Aspirin - Lipitor 20 mg PPx, Diet, Dispostion -DVT ppx: lovenox on hold -Diet: regular -Dispo: patient clinically improving, tolerating po intake Social work: Daughter admits to currently being ill prepared to have patient return home as she does not have appropriate equipment yet. Social work/Case management: plan to speak with [facility] for transportation back and forth from home to hospital for next week if the patient is approved for hyperbaric treatment. will have to reach out to [facility] to see if they can transport patient. Patient's daughter was notified and updated on patient progress and course. Patient seen, case reviewed and plan approved by Dr. David Willis PGY-1 <Jay Hernandez - Last Filed: 06/01/18 15:58> Objective - Vital Signs/Intake and Output Vital Signs (last 24 hours): Temp Pulse Resp BP Pulse Ox 97.6 F 62 18 108/55 L 98 06/01/18 14:00 06/01/18 14:00 06/01/18 14:00 06/01/18 14:00 06/01/18 14:00 Intake and Output: 06/01/18 06/01/18 06:59 18:59 Intake Total 600 Output Total 600 Balance 0 - Medications Medications: Current Medications Acetaminophen (Tylenol 325mg Tab) 650 mg PO Q6H PRN PRN Reason: Pain, moderate (4-7) Last Admin: 05/30/18 16:19 Dose: 650 mg Apixaban (Eliquis) 2.5 mg PO BID [facility]; Protocol Last Admin: 06/01/18 09:57 Dose: 2.5 mg Atenolol (Tenormin) 25 mg PO BID [facility] Last Admin: 06/01/18 09:57 Dose: 25 mg Atorvastatin Calcium (Lipitor) 20 mg PO DIN [facility] Last Admin: 05/31/18 17:42 Dose: 20 mg Digoxin (Lanoxin) 0.25 mg PO 1400 [facility] Last Admin: 06/01/18 13:31 Dose: Not Given Enoxaparin Sodium (Lovenox) 60 mg SC Q12H [facility]; Protocol Last Admin: 05/19/18 21:00 Dose: Not Given Mirtazapine (Remeron) 15 mg PO HS [facility] Last Admin: 05/31/18 21:23 Dose: Not Given Ondansetron HCl (Zofran Inj) 4 mg IVP Q6H PRN PRN Reason: Nausea/Vomiting Pantoprazole Sodium (Protonix Ec Tab) 40 mg PO 0600 [facility] Last Admin: 06/01/18 06:33 Dose: 40 mg - Labs Labs: 06/01/18 07:00 06/01/18 07:00 PT 16.7 SECONDS (9.4-12.5) H 05/31/18 07:00 INR 1.44 05/31/18 07:00 APTT 35.2 Seconds (25.1-36.5) 05/16/18 19:12 Attending/Attestation - Attestation I have personally seen and examined this patient.: Yes I have fully participated in the care of the patient.: Yes I have reviewed all pertinent clinical information, including history, physical exam and plan: Yes Notes (Text): 06/01/18 15:57 82 year old female with past medical history of afib previously on coumadin, CAD, hypertension, right TKA, complicated by VRE with prosthesis removal who presented with intractable vomiting and failure to thrive. Family had been refu sing PEG tube placement as per mother's wishes. She was initially started on TPN which was tapered off once she has been eating more. ID, podiatry and orthopedics are following as well. Patient has completed 6 weeks course of antibiotics. MRI knee was reviewed. Patient has started hyperbaric oxygen therapy on Saturday. Next session will be tomorrow. May need 30 days treatment as per podiatry. Hematology is also following for chronic anemia. Hemoglobin improved after one prbc transfusion few days prior. Monitor h/h closely while patient is on eliquis for afib. Thrombocytopenia has improved. Will need to discuss with piano case maker, social security specialist and daughter tomorrow regarding d/c planning either home with services vs rehab. Patient may also need transport arrangement set up for outpatient hyperbaric treatment. Patient is DNR/DNI. Jay Hernandez MD Hospitalist.
[2018-06-01 07:58] LABS: BASO # 0.03 K/mm3 (0.0-2.0); BASO % 0.6 % (0.0-3.0); EOS # 0.1 (0.0-0.7); EOS % 2.4 % (1.5-5.0); GRAN # 3.49 (1.4-6.5); GRAN % 63.9 % (50.0-68.0); HEMOGLOBIN 8.9 g/dL (12.0-16.0); LYMPH # 1.2 (1.2-3.4); LYMPH % 22.8 % (22.0-35.0); MEAN CELL VOLUME 88.6 fl (80.0-105.0); MEAN CORPUSCULAR HEMOGLOBIN 28.3 pg (25.0-35.0); MEAN CORPUSCULAR HGB CONC 31.9 g/dl (31.0-37.0); MEAN PLATELET VOLUME 11.1 fl (7.0-11.0); MONO # 0.6 (0.1-0.6); MONO % 10.3 % (1.0-6.0); RBC 3.15 10^6/uL (3.5-6.1); RED CELL DISTRIBUTION WIDTH 19.1 % (11.5-14.5); WHITE BLOOD COUNT 5.5 10^3/uL (4.5-11.0)
[2018-06-01 08:13] LABS: ALB/GLOB RATIO 0.9 (1.1-1.8); ALBUMIN 2.5 g/dL (3.0-4.8); ALT/SGPT 57 U/L (7-56); AST/SGOT 30 U/L (14-36); BLOOD UREA NITROGEN 11 mg/dL (7-21); CALCIUM 7.9 mg/dL (8.4-10.5); GFR NON-AFRICAN AMERICAN > 60
--- NOTE | 2018-06-01 10:50 | PN ---
DATE: 06/01/2018 FOLLOWUP NOTE SUBJECTIVE: She is comfortable in bed, in no acute distress. No events overnight. No fever, no cough with expectoration. Hemoglobin is stable, 8.9 g/dL today. Denied any pain. Right knee incision site is improving. She is currently on hyperbaric oxygen. REVIEW OF SYSTEMS: As per HPI. Rest of 12-point review of systems reviewed negative. PHYSICAL EXAMINATION GENERAL: Comfortable in bed, in no acute distress. VITAL SIGNS: Stable, heart rate is per minute, respiratory rate 18 per minute, blood pressure 128/60, pulse ox is 98% on room air. HEENT: Pallor positive. NECK: No lymphadenopathy. CHEST: Air entry present and equal bilaterally. No added sound. CARDIOVASCULAR: S1, S2 normal. No murmur, no gallop. ABDOMEN: Soft, nontender. No hepatosplenomegaly. EXTREMITIES: No edema. Right leg in dressing. MEDICATIONS: Reviewed. LABORATORY DATA: White count 5.5, hemoglobin 8.9, hematocrit 27.9, platelets 235,000. Sodium 135, potassium 3.8, creatinine 0.5. ASSESSMENT AND PLAN: 1. Anemia related to chronic disease, status post blood transfusion two days ago. Hemoglobin and hematocrit stable now. We will continue to monitor hemoglobin and hematocrit. Platelet count and white blood count are normal. 2. Prosthesis infarction, followed by Infectious Disease and Podiatry. Wound improved as per Podiatry. 3. Atrial fibrillation. Currently, on anticoagulation with Eliquis. We will recommend continuing that. 4. Coronary artery disease. No active issues. 5. Anticoagulation. Eliquis 5 mg by mouth two times a day to continue. We will continue to monitor. Thank you for allowing us to participate in Ms. Segura's care. Brianna Pritchard MD
--- NOTE | 2018-06-01 13:08 | CP.PCM.PN ---
<Brown Jeronimo - Last Filed: 06/01/18 13:04> Subjective - Date & Time of Evaluation Date of Evaluation: 06/01/18 Time of Evaluation: 13:04 - Subjective Subjective: Podiatry progress note for Dr. Philip 82 y/o female seen and evaluated at bedside for infected right knee wound and osteomyelitis. Patient was resting in her bed comfortably and NAD. Patient states that she didn't have any pain at the surgery site since yesterday. Patient denies any overnight complaints of F/N/V/SOB/chills. patient denies any other pedal complaint at this time. Objective - Vital Signs/Intake and Output Vital Signs (last 24 hours): Temp Pulse Resp BP Pulse Ox 97.9 F 78 18 123/59 L 97 05/31/18 22:48 06/01/18 09:57 05/31/18 22:48 05/31/18 22:48 05/31/18 22:48 Intake and Output: 06/01/18 06/01/18 06:59 18:59 Intake Total 600 Output Total 600 Balance 0 - Medications Medications: Current Medications Acetaminophen (Tylenol 325mg Tab) 650 mg PO Q6H PRN PRN Reason: Pain, moderate (4-7) Last Admin: 05/30/18 16:19 Dose: 650 mg Apixaban (Eliquis) 2.5 mg PO BID [facility]; Protocol Last Admin: 06/01/18 09:57 Dose: 2.5 mg Atenolol (Tenormin) 25 mg PO BID [facility] Last Admin: 06/01/18 09:57 Dose: 25 mg Atorvastatin Calcium (Lipitor) 20 mg PO DIN [facility] Last Admin: 05/31/18 17:42 Dose: 20 mg Digoxin (Lanoxin) 0.25 mg PO 1400 [facility] Enoxaparin Sodium (Lovenox) 60 mg SC Q12H [facility]; Protocol Last Admin: 05/19/18 21:00 Dose: Not Given Mirtazapine (Remeron) 15 mg PO HS [facility] Last Admin: 05/31/18 21:23 Dose: Not Given Ondansetron HCl (Zofran Inj) 4 mg IVP Q6H PRN PRN Reason: Nausea/Vomiting Pantoprazole Sodium (Protonix Ec Tab) 40 mg PO 0600 [facility] Last Admin: 06/01/18 06:33 Dose: 40 mg - Labs Labs: 06/01/18 07:00 06/01/18 07:00 PT 16.7 SECONDS (9.4-12.5) H 05/31/18 07:00 INR 1.44 05/31/18 07:00 APTT 35.2 Seconds (25.1-36.5) 05/16/18 19:12 - Constitutional Appears: Well, Non-toxic, No Acute Distress - Head Exam Head Exam: ATRAUMATIC, NORMOCEPHALIC - Extremities Exam Additional comments: R LE focused exam: Vasc: DP/PT faintly palpable. Cap refill< 3 sec to all digits. Temp gradient warm to cool. No edema. Multiple ecchymotic patches extends from the periwound area at the knee joint all the way down to the R ankle. Mild Periwound erythema noted. Neuro: Gross and protective sensations are intact. Derm: A wound measures [id number] with central part is opened. base of the opened part is fibronecrotic. Minimal serous drainage noted. No malodor. No probe to bone, no tracking or undermining. Periwound erythema and ecchymosis noted. No clinical signs of infection. Wound regressing as skin appears to darken in color periwound and down the leg. MSK: Pain on palpating the periwound area. Muscle power around the knee joint couldn't be assessed due to pain and guarding. Passive and active ROM could be performed with guarding at the level of the R foot and ankle. - Neurological Exam Neurological Exam: Alert, Awake, Oriented x3 - Psychiatric Exam Psychiatric exam: Normal Affect, Normal Mood Assessment and Plan - Assessment and Plan (Free Text) Assessment: 82 y/o female patient with infected right knee wound and osteomyelitis Plan: Patient seen and evaluated at the bedside Plan discussed with attending Dr. Philip Charts, labs and vitals reviewed; Afebrile, No leukocytosis Wound culture; Pantonea Species Wound dressed with xeroform, 4X4 gauze, ABD and taped down as lifting leg is too painful for patient Multipodus boot is in place. Right knee x-ray - prosthesis removed, cement spacer in place Continue medical management per medicine and ID team Patient not a surgical candidate for wound debridement at this time as patient's platelet count is low LE venous duplex; No evidence of DVT. R knee MRI: OM can't be excluded despite there is no obvious bony erosions Patient will need at least 4 weeks of HBO therapy Podiatry will continue to follow patient while in house. <TameraThai - Last Filed: 06/02/18 10:17> Objective - Vital Signs/Intake and Output Vital Signs (last 24 hours): Temp Pulse Resp BP Pulse Ox 97.4 F L 60 20 139/68 98 06/02/18 06:00 06/02/18 06:00 06/02/18 06:00 06/02/18 06:00 06/02/18 06:00 Intake and Output: 06/02/18 06/02/18 06:59 18:59 Intake Total 960 Output Total 1100 Balance -140 - Medications Medications: Current Medications Acetaminophen (Tylenol 325mg Tab) 650 mg PO Q6H PRN PRN Reason: Pain, moderate (4-7) Last Admin: 05/30/18 16:19 Dose: 650 mg Apixaban (Eliquis) 2.5 mg PO BID [facility]; Protocol Last Admin: 06/01/18 17:31 Dose: 2.5 mg Atenolol (Tenormin) 25 mg PO BID [facility] Last Admin: 06/01/18 17:39 Dose: Not Given Atorvastatin Calcium (Lipitor) 20 mg PO DIN [facility] Last Admin: 06/01/18 17:31 Dose: 20 mg Digoxin (Lanoxin) 0.25 mg PO 1400 [facility] Last Admin: 06/01/18 13:31 Dose: Not Given Enoxaparin Sodium (Lovenox) 60 mg SC Q12H [facility]; Protocol Last Admin: 05/19/18 21:00 Dose: Not Given Mirtazapine (Remeron) 15 mg PO HS [facility] Last Admin: 06/01/18 21:33 Dose: Not Given Ondansetron HCl (Zofran Inj) 4 mg IVP Q6H PRN PRN Reason: Nausea/Vomiting Pantoprazole Sodium (Protonix Ec Tab) 40 mg PO 0600 [facility] Last Admin: 06/02/18 05:30 Dose: 40 mg - Labs Labs: 06/02/18 06:20 06/02/18 06:20 PT 16.7 SECONDS (9.4-12.5) H 05/31/18 07:00 INR 1.44 05/31/18 07:00 APTT 35.2 Seconds (25.1-36.5) 05/16/18 19:12 Attending/Attestation - Attestation I have personally seen and examined this patient.: Yes I have fully participated in the care of the patient.: Yes I have reviewed all pertinent clinical information, including history, physical exam and plan: Yes
[2018-06-01] MEDS: Digoxin 250 mcg (0.25 mg) Tab PO SCH (13:31)
--- NOTE | 2018-06-01 14:12 | PN ---
DATE: 06/01/2018 SUBJECTIVE: The patient is in bed, in no acute distress, nontoxic. No fevers. PHYSICAL EXAMINATION: VITAL SIGNS: On exam, temperature is 98, blood pressure is 120/70, respiratory rate of 18. HEENT: Examination of HEENT is unremarkable. NECK: Supple. LUNGS: Have decreased breath sounds. HEART: Normal S1, S2. ABDOMEN: Soft, nontender LABORATORY DATA: Laboratory examination reveals a white count of 5.5, hemoglobin of 8, platelets of 235. Chemistries reveals a BUN of 11, creatinine of 0.5. Urinalysis is noted. Toxicology is reviewed. Microbiology is reviewed and review of orders reveals the patient to be off of antibiotics. ASSESSMENT AND PLAN: An 82-year-old female initially admitted with nausea and vomiting, lactic acidosis, gastrointestinal issues, treated with 6 weeks of Zyvox. Currently off of antibiotics, afebrile and antibiotic spacers and currently improving, her appetite is improving. She appears to be doing better and we will follow with you. Dominick Simeon MD
[2018-06-02] MEDS: Pantoprazole 40 mg EC Tab PO SCH (05:30)
[2018-06-02 07:04] LABS: ALB/GLOB RATIO 0.9 (1.1-1.8); ALBUMIN 2.6 g/dL (3.0-4.8); ALT/SGPT 51 U/L (7-56); AST/SGOT 25 U/L (14-36); BLOOD UREA NITROGEN 10 mg/dL (7-21); CALCIUM 8.1 mg/dL (8.4-10.5); GFR NON-AFRICAN AMERICAN > 60
[2018-06-02 07:07] LABS: BASO # 0.04 K/mm3 (0.0-2.0); BASO % 0.8 % (0.0-3.0); EOS # 0.1 (0.0-0.7); EOS % 2.6 % (1.5-5.0); GRAN # 3.01 (1.4-6.5); GRAN % 60.7 % (50.0-68.0); HEMOGLOBIN 9.3 g/dL (12.0-16.0); LYMPH # 1.3 (1.2-3.4); LYMPH % 26.2 % (22.0-35.0); MEAN CELL VOLUME 88.9 fl (80.0-105.0); MEAN CORPUSCULAR HGB CONC 31.5 g/dl (31.0-37.0); MEAN PLATELET VOLUME 10.4 fl (7.0-11.0); MONO # 0.5 (0.1-0.6); MONO % 9.7 % (1.0-6.0); RBC 3.32 10^6/uL (3.5-6.1)
--- NOTE | 2018-06-02 08:19 | CP.PCM.PN ---
Subjective - Date & Time of Evaluation Date of Evaluation: 06/02/18 Time of Evaluation: 08:16 - Subjective Subjective: Pt awake, alert. Denies any significant pain. Afebrile, VSS R knee with dressing grossly NVI Spoke with Dr Oliva. Pt receiving hyperbaric therapy. Plan to take patient to OR on saturday to debride necrotic skin. Will discuss plan with patient's daughter, Nina. Objective - Vital Signs/Intake and Output Vital Signs (last 24 hours): Temp Pulse Resp BP Pulse Ox 97.7 F 72 18 130/68 96 06/01/18 22:00 06/01/18 22:00 06/01/18 22:00 06/01/18 22:00 06/01/18 22:00 Intake and Output: 06/02/18 06/02/18 06:59 18:59 Intake Total 960 Output Total 1100 Balance -140 - Medications Medications: Current Medications Acetaminophen (Tylenol 325mg Tab) 650 mg PO Q6H PRN PRN Reason: Pain, moderate (4-7) Last Admin: 05/30/18 16:19 Dose: 650 mg Apixaban (Eliquis) 2.5 mg PO BID [facility]; Protocol Last Admin: 06/01/18 17:31 Dose: 2.5 mg Atenolol (Tenormin) 25 mg PO BID [facility] Last Admin: 06/01/18 17:39 Dose: Not Given Atorvastatin Calcium (Lipitor) 20 mg PO DIN [facility] Last Admin: 06/01/18 17:31 Dose: 20 mg Digoxin (Lanoxin) 0.25 mg PO 1400 [facility] Last Admin: 06/01/18 13:31 Dose: Not Given Enoxaparin Sodium (Lovenox) 60 mg SC Q12H [facility]; Protocol Last Admin: 05/19/18 21:00 Dose: Not Given Mirtazapine (Remeron) 15 mg PO HS [facility] Last Admin: 06/01/18 21:33 Dose: Not Given Ondansetron HCl (Zofran Inj) 4 mg IVP Q6H PRN PRN Reason: Nausea/Vomiting Pantoprazole Sodium (Protonix Ec Tab) 40 mg PO 0600 [facility] Last Admin: 06/02/18 05:30 Dose: 40 mg - Labs Labs: 06/02/18 06:20 11/26/18 06:20 PT 16.7 SECONDS (9.4-12.5) H 05/31/18 07:00 INR 1.44 05/31/18 07:00 APTT 35.2 Seconds (25.1-36.5) 05/16/18 19:12
--- NOTE | 2018-06-02 11:31 | CP.PCM.PN ---
<Praveen Oliveros - Last Filed: 06/02/18 12:53> Subjective - Date & Time of Evaluation Date of Evaluation: 06/02/18 Time of Evaluation: 07:40 - Subjective Subjective: Praveen Oliveros PGY-1 Progress Note for Hospitalist Service Patient seen and evaluated at bedside. No acute events reported overnight. Patient sitting up comfortably in bed on her cell phone. Patient tolerating diet. Reports no current leg pain and denies chest pain, palpitations, blurry vision, headaches, shortness of breath. Objective - Vital Signs/Intake and Output Vital Signs (last 24 hours): Temp Pulse Resp BP Pulse Ox 97.4 F L 75 20 135/70 98 06/02/18 06:00 06/02/18 10:32 06/02/18 06:00 06/02/18 10:32 06/02/18 06:00 Intake and Output: 06/02/18 06/02/18 06:59 18:59 Intake Total 960 Output Total 1100 Balance -140 - Medications Medications: Current Medications Acetaminophen (Tylenol 325mg Tab) 650 mg PO Q6H PRN PRN Reason: Pain, moderate (4-7) Last Admin: 05/30/18 16:19 Dose: 650 mg Alprazolam (Xanax) 0.5 mg PO DAILY [facility]; Protocol Apixaban (Eliquis) 2.5 mg PO BID [facility]; Protocol Last Admin: 06/02/18 10:33 Dose: Not Given Atenolol (Tenormin) 25 mg PO BID [facility] Last Admin: 06/02/18 10:32 Dose: 25 mg Atorvastatin Calcium (Lipitor) 20 mg PO DIN [facility] Last Admin: 06/01/18 17:31 Dose: 20 mg Digoxin (Lanoxin) 0.25 mg PO 1400 [facility] Last Admin: 06/01/18 13:31 Dose: Not Given Enoxaparin Sodium (Lovenox) 60 mg SC Q12H [facility]; Protocol Last Admin: 05/19/18 21:00 Dose: Not Given Mirtazapine (Remeron) 15 mg PO HS [facility] Last Admin: 06/01/18 21:33 Dose: Not Given Ondansetron HCl (Zofran Inj) 4 mg IVP Q6H PRN PRN Reason: Nausea/Vomiting Pantoprazole Sodium (Protonix Ec Tab) 40 mg PO 0600 [facility] Last Admin: 06/02/18 05:30 Dose: 40 mg - Labs Labs: 06/02/18 06:20 06/02/18 06:20 PT 16.7 SECONDS (9.4-12.5) H 05/31/18 07:00 INR 1.44 05/31/18 07:00 APTT 35.2 Seconds (25.1-36.5) 05/16/18 19:12 - Additional Findings Additional findings: - Constitutional Appears: Non-toxic, No Acute Distress, Pallor - Head Exam Head Exam: ATRAUMATIC, NORMAL INSPECTION, NORMOCEPHALIC - Eye Exam Eye Exam: EOMI, Normal appearance - ENT Exam ENT Exam: Mucous Membranes Moist, Normal Exam - Neck Exam Neck Exam: Full ROM, Normal Inspection - Respiratory Exam Respiratory Exam: Clear to Ausculation Bilateral, NORMAL BREATHING PATTERN. absent: Accessory Muscle Use, Rales, Rhonchi, Wheezes, Respiratory Distress, Stridor - Cardiovascular Exam Cardiovascular Exam: REGULAR RHYTHM, +S1, +S2 - GI/Abdominal Exam GI & Abdominal Exam: Soft, Normal Bowel Sounds. absent: Distended, Firm, Guarding, Rigid, Tenderness, Organomegaly, Rebound - Extremities Exam Extremities Exam: Normal Capillary Refill. 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 PO intake improving, continuing to taper PPN. PLT count improving, on Eliquis. No sign of bleeding. Advancing diet to advanced bite size. Currently tolerating dysphagia diet. Hyperbaric oxygen therapy trial planned for 05/30. Extensive conversation with daughter Nina regarding future steps in care of her mother and our recommendation for rehabilitation. Per Dr. Dav moore, patient started her 30 day course of hyperbaric therapy, 2 hours each, M-F on 05/30/18, which she toleratd. Patient set to receive incision and drainage of necrotic knee wound on Saturday per podiatry/Ortho. 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 Mi) appreciated -CRP elevated b/c patient is ill; not an accurate assessment of the knee inflammation -superficial wound cx: pantoea sensitive to many abx: giving bactroban, polymixin, bacitracin ointment -Podiatry consulted. Recs appreciated. Ortho 05/29: At this time, given that patient has a periprosthetic infection involving skin, soft tissues and bone, pt would benefit from local wound debridement and hyperbaric therapy if no medical contraindications. If wound heals and infection eradicated, patient would be a candidate for reimplantation. MRI R knee 05/28 - difficult to exclude Osteo. No obvious bone destruction Doppler LLE - no DVT 30 session course of hyperbaric therapy, 2 hours each, M-F began on 05/30/18, Xanax 0.5 mg daily before each session Plan to pursue debridement of necrotic skin on 06/04 in OR Will hold Eliquis at this time Continue to recommend Rehab Anemia, Thrombocytopenia- resolved -pt s/p 1 unit prbc, given a dose of erythropoietin -hyperproliferative erythroid response -anemia of chronic disease -iron, b12, folate wnl -began Eliquis 05/26- will continue to monitor thrombocytopenia and increased risk of bleeding -Heme/Onc recs appreciated -medication induced thrombocytopenia; zyvox can cause cytopenias -zyvox dc'd -INR 1.27 -Transfused 1 unit PRBC 05/29 after Hgb dropped to 7.2. -began Eliquis 2.5 mg PO BID 05/26. Held 06/02/ upcoming I&D Failure to thrive, dysphagia - improved -PPN has been tapered, but is being supplemented with Ensure. Tolerating diet. -Patient's family refusing PEG feeding at this time -Recent completion of 6 week course of Abx: zyvox and daptomycin discontinued -CT chest: no acute findings -CT head: no acute findings -EGD (04/2018): no esophageal pathology or signs of gastric outlet obstruction -repeat speech/swallow eval (05/23) -PHONE BANKER recommends trial puree consistency diet with extra gravy and thin liquids -aspiration/reflux precautions -GI recs appreciated -dysphagia, multifactorial - motility dysfunction, deconditioning -improved mentation and alertness -pt tolerating diet with no issues per nursing -neurology recommendation- no signs of neuromuscular disorder -Palliative recs: Jeannette LEVIN and I met with patients daughter's Isabel and Marii (both POA's). Family aware of mothers medical situation and poor prognosis. Benefits and burdens of feeding tube discussed at length. Daughters refusing PEG tube, in accordance of mother's AD wishes . Hospice services explained in detail. Questions answered. Daughters conflicted, state they are unable to stay home from their jobs in order to care for their mother. Daughter states that mother does not have the finances to pay for 24 hour aide or go to NH facility. Medic aid application in progress. Atrial fibrillation - Digoxin 0.8 (05/16), Dig 1.4 (06/02) - Atenolol 25 mg PO daily - Holding parameters placed for digoxin and atenol for low HR - Eliquis 2.5 mg BID held 06/02 08/09 pending OR I&D CAD - Aspirin - Lipitor 20 mg PPx, Diet, Dispostion -DVT ppx: Eliquis on hold, SCDs -Diet: regular -Dispo: patient clinically improving, tolerating po intake Social work: Daughter agreeable to [facility] rehab after OR on Saturday. Patient's daughter was notified and updated on patient progress and course. Patient seen, case reviewed and plan approved by Dr. Weiss. Praveen Oliveros, PGY-1 <Gabbi Weiss - Last Filed: 06/07/18 18:23> Objective - Vital Signs/Intake and Output Vital Signs (last 24 hours): Temp Pulse Resp BP Pulse Ox 97.5 F L 72 18 114/64 97 06/07/18 06:00 06/07/18 17:46 06/07/18 06:00 06/07/18 17:46 06/07/18 06:00 Intake and Output: 06/07/18 06/07/18 06:59 18:59 Intake Total 480 Output Total 600 Balance -120 - Medications Medications: Current Medications Acetaminophen (Tylenol 325mg Tab) 650 mg PO Q6H PRN PRN Reason: Pain, moderate (4-7) Last Admin: 06/07/18 03:56 Dose: 650 mg Alprazolam (Xanax) 0.25 mg PO DAILY [facility]; Protocol Apixaban (Eliquis) 2.5 mg PO BID [facility]; Protocol Last Admin: 06/07/18 17:49 Dose: 2.5 mg Atenolol (Tenormin) 25 mg PO BID [facility] Last Admin: 06/07/18 17:46 Dose: 25 mg Atorvastatin Calcium (Lipitor) 20 mg PO DIN [facility] Last Admin: 06/07/18 17:49 Dose: 20 mg Digoxin (Lanoxin) 0.25 mg PO 1400 [facility] Last Admin: 06/07/18 15:06 Dose: 0.25 mg Enoxaparin Sodium (Lovenox) 60 mg SC Q12H [facility]; Protocol Last Admin: 05/19/18 21:00 Dose: Not Given Furosemide (Lasix) 20 mg PO DAILY [facility] Last Admin: 06/07/18 10:51 Dose: Not Given Mirtazapine (Remeron) 15 mg PO HS [facility] Last Admin: 06/06/18 21:32 Dose: Not Given Nystatin (Nystop Topical Powder) 0 gm TOP BID [facility] Last Admin: 06/07/18 17:49 Dose: 1 appl Ondansetron HCl (Zofran Inj) 4 mg IVP Q6H PRN PRN Reason: Nausea/Vomiting Oxycodone/Acetaminophen (Percocet 2.5/325 Mg Tab) 1 tab PO DAILY [facility] Pantoprazole Sodium (Protonix Ec Tab) 40 mg PO 0600 [facility] Last Admin: 06/07/18 11:06 Dose: 40 mg - Labs Labs: 06/06/18 06:30 06/06/18 06:30 PT 13.5 SECONDS (9.4-12.5) H 06/04/18 05:40 INR 1.17 06/04/18 05:40 APTT 30.8 Seconds (25.1-36.5) 06/04/18 05:40 Attending/Attestation - Attestation I have personally seen and examined this patient.: Yes I have fully participated in the care of the patient.: Yes I have reviewed all pertinent clinical information, including history, physical exam and plan: Yes Notes (Text): 06/07/18 18:23 Medical record note made by the resident after discussion with my direction and input after the patient was personally seen and examined by me. I have reviewed the chart and agree that the record accurately reflects by personal performance of the history, physical exam, data review, and medical decision-making, in the course for the patient. I have also personally directed the plan of care
--- NOTE | 2018-06-02 12:12 | CP.PCM.PN ---
Subjective - Date & Time of Evaluation Date of Evaluation: 06/02/18 Time of Evaluation: 08:35 - Subjective Subjective: Eating her yogurt without issues, has occasional cough but no phlegm currently (at times, clear phlegm) but no fevers, no increase in pain on the right knee, no diarrhea. Objective - Vital Signs/Intake and Output Vital Signs (last 24 hours): Temp Pulse Resp BP Pulse Ox 97.4 F L 75 20 135/70 98 06/02/18 06:00 06/02/18 10:32 06/02/18 06:00 06/02/18 10:32 06/02/18 06:00 Intake and Output: 06/02/18 06/02/18 06:59 18:59 Intake Total 960 Output Total 1100 Balance -140 - Medications Medications: Current Medications Acetaminophen (Tylenol 325mg Tab) 650 mg PO Q6H PRN PRN Reason: Pain, moderate (4-7) Last Admin: 05/30/18 16:19 Dose: 650 mg Alprazolam (Xanax) 0.5 mg PO DAILY [facility]; Protocol Apixaban (Eliquis) 2.5 mg PO BID [facility]; Protocol Last Admin: 06/02/18 10:33 Dose: Not Given Atenolol (Tenormin) 25 mg PO BID [facility] Last Admin: 06/02/18 10:32 Dose: 25 mg Atorvastatin Calcium (Lipitor) 20 mg PO DIN [facility] Last Admin: 06/01/18 17:31 Dose: 20 mg Digoxin (Lanoxin) 0.25 mg PO 1400 [facility] Last Admin: 06/01/18 13:31 Dose: Not Given Enoxaparin Sodium (Lovenox) 60 mg SC Q12H [facility]; Protocol Last Admin: 05/19/18 21:00 Dose: Not Given Mirtazapine (Remeron) 15 mg PO HS [facility] Last Admin: 06/01/18 21:33 Dose: Not Given Ondansetron HCl (Zofran Inj) 4 mg IVP Q6H PRN PRN Reason: Nausea/Vomiting Pantoprazole Sodium (Protonix Ec Tab) 40 mg PO 0600 [facility] Last Admin: 06/02/18 05:30 Dose: 40 mg - Labs Labs: 06/02/18 06:20 06/02/18 06:20 PT 16.7 SECONDS (9.4-12.5) H 05/31/18 07:00 INR 1.44 05/31/18 07:00 APTT 35.2 Seconds (25.1-36.5) 05/16/18 19:12 - Constitutional Appears: Non-toxic, Chronically Ill - Head Exam Head Exam: NORMAL INSPECTION - Extremities Exam Additional comments: right knee with immobilizer in place Assessment and Plan - Assessment and Plan (Free Text) Plan: Assessment S/P nausea and vomiting with lactic acidosis, R/O due to meds R/O functional gastrointestinal issue - patient continues to improve clinically - patient without vomiting currently, tolerating some PO intake and patient continues to be awake and alert 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, S/P debridement, S/P removal, placement of antibiotic spacer and has completed 6 w eeks of antibiotics - patient with surgical site right knee wound necrosis and probable local infection, superficial cultures growing Pantoea CAD S/P PCI HTN atrial fibrillation osteoarthritis S/P right knee replacement Plan she already has had 6 weeks of antibiotics (since 04/08/2018) the thrombocytopeniawas probably multifactorial (including meds such as Zyvox and chronic illness - we are continuing to monitor platelet count and Hematology is on-board, patient also has low Hgb and there may be myelosuppression but the platelet count has now normalized) - we previously discussed with Dr. Watson that she is to be monitored off systemic antibiotics since she has no fevers/leukocytosis/signs of systemic infection Also discussed with Dr. Oliva previously and patient is to be monitored off antibiotics (both of us agree) - patient has been started on hyperbaric chamber therapy and wound is getting better as per Podiatry discussed previously with Dr. Watson, and would only consider putting prosthetic knee joint back if she has good nutrition and the right knee wound has healed will continue to monitor clinically overall prognosis is poor
[2018-06-02] MEDS: Digoxin 250 mcg (0.25 mg) Tab PO SCH (14:30)
[2018-06-03] MEDS: Pantoprazole 40 mg EC Tab PO SCH (06:23)
[2018-06-03 06:54] LABS: BLOOD UREA NITROGEN 10 mg/dL (7-21); CALCIUM 8.2 mg/dL (8.4-10.5); GFR NON-AFRICAN AMERICAN > 60
[2018-06-03 07:11] LABS: BASO # 0.04 K/mm3 (0.0-2.0); BASO % 0.8 % (0.0-3.0); EOS # 0.2 (0.0-0.7); GRAN # 2.81 (1.4-6.5); GRAN % 56.5 % (50.0-68.0); HEMOGLOBIN 8.9 g/dL (12.0-16.0); LYMPH # 1.5 (1.2-3.4); LYMPH % 29.9 % (22.0-35.0); MEAN CELL VOLUME 88.9 fl (80.0-105.0); MEAN CORPUSCULAR HEMOGLOBIN 28.3 pg (25.0-35.0); MEAN CORPUSCULAR HGB CONC 31.8 g/dl (31.0-37.0); MEAN PLATELET VOLUME 10.6 fl (7.0-11.0); MONO # 0.5 (0.1-0.6); MONO % 9.8 % (1.0-6.0); RBC 3.15 10^6/uL (3.5-6.1); RED CELL DISTRIBUTION WIDTH 19.2 % (11.5-14.5)
--- NOTE | 2018-06-03 07:42 | OP ---
PROCEDURE DATE: 06/02/2018 This is an 82-year-old female, seen in Hyperbarics for evaluation of a right knee ulceration. The patient is doing hyperbarics secondary to osteomyelitis, which could not be ruled out on her last MRI. She did have an infected implant which was extruded. After the implant, the patient had a total of six weeks on antibiotics for osteo of the knee. The patient is in the hyperbaric without complaints or problems today. Her vital signs were reviewed. Her temperature is 97.4. The blood pressure is 139/68. Her oxygen sat is forgoing and was 98. The patient's micro was reviewed. She has a species, which I spoke with Infectious Disease, which is most likely a colony from the skin at this time. Her white blood cell count today is 5. The H and H are 9.3 and 29.5, and her platelets are 263. Chemistry shows a BUN and creatinine of 10 and 0.5. Her calcium was low at 8.1. Her total protein is also low at 5.6 and 2.6 respectively. The patient is receiving TPN. The patient's lower extremity was evaluated post on hyperbaric. There was much less pain. There is no purulence. The tissue is now firmly becoming granular. There are several small spots of necrotic tissue and some fibrotic tissue; however, none of these show any abscess, cellulitis or signs of infection. She is going to be debrided on Saturday by Dr. Watson and myself. Unfortunately, I have noted in the chart that the patient is going [facility] a [facility] after the debridement on Saturday. If this is so, the patient will not be able to continue with hyperbaric oxygen. It is not a paid service when the patient is in a penitentiary. The patient's wounds were cleansed and dressed here at the hyperbaric unit using normal saline, Xeroform and a dry sterile dressing. We will continue the hyperbaric while she is here at [facility] and if she does go to a nursing facility as noted above, the hyperbaric treatment will be stopped. Kristen Oliva DPM [facility] # [id number] AY[facility]
--- NOTE | 2018-06-03 09:04 | CP.PCM.PN ---
<Praveen Oliveros - Last Filed: 06/03/18 12:50> Subjective - Date & Time of Evaluation Date of Evaluation: 06/03/18 Time of Evaluation: 07:00 - Subjective Subjective: Praveen Oliveros PGY-1 Progress Note for Hospitalist Service Patient seen and evaluated at bedside. No acute events reported overnight. Patient sitting up comfortably in bed. Patient tolerating diet. Reports no current leg pain and denies chest pain, palpitations, blurry vision, headaches, shortness of breath. Daughter Nina at bedside. Upcoming plans for OR tomorrow and rehab placement thereafter discussed in detail. Objective - Vital Signs/Intake and Output Vital Signs (last 24 hours): Temp Pulse Resp BP Pulse Ox 97.9 F 60 18 118/59 L 96 06/02/18 23:11 06/02/18 23:11 06/02/18 23:11 06/02/18 23:11 06/02/18 23:11 Intake and Output: 06/03/18 06/03/18 06:59 18:59 Intake Total 660 Balance 660 - Medications Medications: Current Medications Acetaminophen (Tylenol 325mg Tab) 650 mg PO Q6H PRN PRN Reason: Pain, moderate (4-7) Last Admin: 05/30/18 16:19 Dose: 650 mg Alprazolam (Xanax) 0.5 mg PO DAILY [facility]; Protocol Apixaban (Eliquis) 2.5 mg PO BID [facility]; Protocol Last Admin: 06/02/18 10:33 Dose: Not Given Atenolol (Tenormin) 25 mg PO BID [facility] Last Admin: 06/02/18 17:27 Dose: Not Given Atorvastatin Calcium (Lipitor) 20 mg PO DIN [facility] Last Admin: 06/02/18 17:22 Dose: 20 mg Digoxin (Lanoxin) 0.25 mg PO 1400 [facility] Last Admin: 06/02/18 14:30 Dose: Not Given Enoxaparin Sodium (Lovenox) 60 mg SC Q12H [facility]; Protocol Last Admin: 05/19/18 21:00 Dose: Not Given Mirtazapine (Remeron) 15 mg PO HS [facility] Last Admin: 06/02/18 22:00 Dose: Not Given Ondansetron HCl (Zofran Inj) 4 mg IVP Q6H PRN PRN Reason: Nausea/Vomiting Pantoprazole Sodium (Protonix Ec Tab) 40 mg PO 0600 [facility] Last Admin: 06/03/18 06:23 Dose: 40 mg - Labs Labs: 06/03/18 06:15 06/03/18 06:15 PT 16.7 SECONDS (9.4-12.5) H 05/31/18 07:00 INR 1.44 05/31/18 07:00 APTT 35.2 Seconds (25.1-36.5) 05/16/18 19:12 - Additional Findings Additional findings: - Constitutional Appears: Non-toxic, No Acute Distress, Pallor - Head Exam Head Exam: ATRAUMATIC, NORMAL INSPECTION, NORMOCEPHALIC - Eye Exam Eye Exam: EOMI, Normal appearance - ENT Exam ENT Exam: Mucous Membranes Moist, Normal Exam - Neck Exam Neck Exam: Full ROM, Normal Inspection - Respiratory Exam Respiratory Exam: Clear to Ausculation Bilateral, NORMAL BREATHING PATTERN. absent: Accessory Muscle Use, Rales, Rhonchi, Wheezes, Respiratory Distress, Stridor - Cardiovascular Exam Cardiovascular Exam: REGULAR RHYTHM, +S1, +S2 - GI/Abdominal Exam GI & Abdominal Exam: Soft, Normal Bowel Sounds. absent: Distended, Firm, Guarding, Rigid, Tenderness, Organomegaly, Rebound - Extremities Exam Extremities Exam: Normal Capillary Refill. 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 PO intake improving, continuing to taper PPN. PLT count improving, on Eliquis. No sign of bleeding. Advancing diet to advanced bite size. Currently tolerating dysphagia diet. Hyperbaric oxygen therapy trial planned for 05/30. Extensive conversation with daughter Nina regarding future steps in care of her mother and our recommendation for rehabilitation. Per Dr. Oliva, patient started her 30 day course of hyperbaric therapy, 2 hours each, M-F on 05/30/18, which she tolerated. Patient set to receive incision and drainage of necrotic knee wound on Saturday per podiatry/Ortho. Decreased dose of Xanax before HBO therapy sessions. 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 Mi) appreciated -CRP elevated b/c patient is ill; not an accurate assessment of the knee inflammation -superficial wound cx: pantoea sensitive to many abx: giving bactroban, polymixin, bacitracin ointment -Podiatry consulted. Recs appreciated. Ortho 05/29: At this time, given that patient has a periprosthetic infection involving skin, soft tissues and bone, pt would benefit from local wound debridement and hyperbaric therapy if no medical contraindications. If wound heals and infection eradicated, patient would be a candidate for reimplantation. MRI R knee 05/28 - difficult to exclude Osteo. No obvious bone destruction Doppler LLE - no DVT 30 session course of hyperbaric therapy, 2 hours each, M-F began on 05/30/18, Xanax decreased to 0.25 mg daily before each session Plan to pursue debridement of necrotic skin on 06/04 in OR Will hold Eliquis at this time Continue to recommend Rehab Anemia, Thrombocytopenia- resolved -pt s/p 1 unit prbc, given a dose of erythropoietin -hyperproliferative erythroid response -anemia of chronic disease -iron, b12, folate wnl -began Eliquis 05/26- will continue to monitor thrombocytopenia and increased risk of bleeding -Heme/Onc recs appreciated -medication induced thrombocytopenia; zyvox can cause cytopenias -zyvox dc'd -INR 1.27 -Transfused 1 unit PRBC 05/29 after Hgb dropped to 7.2. -began Eliquis 2.5 mg PO BID 05/26. Held 06/02 08/09 upcoming I&D Failure to thrive, dysphagia - improved -PPN has been tapered, but is being supplemented with Ensure. Tolerating diet. -Patient's family refusing PEG feeding at this time -Recent completion of 6 week course of Abx: zyvox and daptomycin discontinued -CT chest: no acute findings -CT head: no acute findings -EGD (04/2018): no esophageal pathology or signs of gastric outlet obstruction -repeat speech/swallow eval (05/23) -[employer] recommends trial puree consistency diet with extra gravy and thin liquids -aspiration/reflux precautions -GI recs appreciated -dysphagia, multifactorial - motility dysfunction, deconditioning -improved mentation and alertness -pt tolerating diet with no issues per nursing -neurology recommendation- no signs of neuromuscular disorder -Palliative recs: POONAM, Jeannette Lowery and I met with patients daughter's Isabel and Marii (both POA's). Family aware of mothers medical situation and poor prognosis. Benefits and burdens of feeding tube discussed at length. Daughters refusing PEG tube, in accordance of mother's AD wishes . Hospice services explained in detail. Questions answered. Daughters conflicted, state they are unable to stay home from their jobs in order to care for their mother. Daughter states that mother does not have the finances to pay for 24 hour aide or go to NH facility. Atrial fibrillation - Digoxin 0.8 (05/16), Dig 1.4 (06/02) - Atenolol 25 mg PO daily - Holding parameters placed for digoxin and atenol for low HR - Eliquis 2.5 mg BID held 06/02 08/09 pending OR I&D CAD - Aspirin - Lipitor 20 mg PPx, Diet, Dispostion -DVT ppx: Eliquis on hold, SCDs -Diet: regular -Dispo: patient clinically improving, tolerating po intake Social work: Daughter agreeable to [facility] rehab after OR on 06/04. However, per POONAM, can't perform HBO at [facility] so family will need to agree upon a separate facility. Patient's daughters (Nina & Ruby) was notified and updated on patient progress and course. Patient seen, case reviewed and plan approved by Dr. Weiss. Praveen Oliveros, PGY-1 <Gabbi Weiss - Last Filed: 06/07/18 18:23> Objective - Vital Signs/Intake and Output Vital Signs (last 24 hours): Temp Pulse Resp BP Pulse Ox 97.5 F L 72 18 114/64 97 06/07/18 06:00 06/07/18 17:46 06/07/18 06:00 06/07/18 17:46 06/07/18 06:00 Intake and Output: 06/07/18 06/07/18 06:59 18:59 Intake Total 480 Output Total 600 Balance -120 - Medications Medications: Current Medications Acetaminophen (Tylenol 325mg Tab) 650 mg PO Q6H PRN PRN Reason: Pain, moderate (4-7) Last Admin: 06/07/18 03:56 Dose: 650 mg Alprazolam (Xanax) 0.25 mg PO DAILY [facility]; Protocol Apixaban (Eliquis) 2.5 mg PO BID [facility]; Protocol Last Admin: 06/07/18 17:49 Dose: 2.5 mg Atenolol (Tenormin) 25 mg PO BID [facility] Last Admin: 06/07/18 17:46 Dose: 25 mg Atorvastatin Calcium (Lipitor) 20 mg PO DIN [facility] Last Admin: 06/07/18 17:49 Dose: 20 mg Digoxin (Lanoxin) 0.25 mg PO 1400 [facility] Last Admin: 06/07/18 15:06 Dose: 0.25 mg Enoxaparin Sodium (Lovenox) 60 mg SC Q12H [facility]; Protocol Last Admin: 05/19/18 21:00 Dose: Not Given Furosemide (Lasix) 20 mg PO DAILY [facility] Last Admin: 06/07/18 10:51 Dose: Not Given Mirtazapine (Remeron) 15 mg PO HS [facility] Last Admin: 06/06/18 21:32 Dose: Not Given Nystatin (Nystop Topical Powder) 0 gm TOP BID [facility] Last Admin: 06/07/18 17:49 Dose: 1 appl Ondansetron HCl (Zofran Inj) 4 mg IVP Q6H PRN PRN Reason: Nausea/Vomiting Oxycodone/Acetaminophen (Percocet 2.5/325 Mg Tab) 1 tab PO DAILY [facility] Pantoprazole Sodium (Protonix Ec Tab) 40 mg PO 0600 [facility] Last Admin: 06/07/18 11:06 Dose: 40 mg - Labs Labs: 06/06/18 06:30 06/06/18 06:30 PT 13.5 SECONDS (9.4-12.5) H 06/04/18 05:40 INR 1.17 06/04/18 05:40 APTT 30.8 Seconds (25.1-36.5) 06/04/18 05:40 Attending/Attestation - Attestation I have personally seen and examined this patient.: Yes I have fully participated in the care of the patient.: Yes I have reviewed all pertinent clinical information, including history, physical exam and plan: Yes Notes (Text): 06/07/18 18:23 Medical record note made by the resident after discussion with my direction and input after the patient was personally seen and examined by me. I have reviewed the chart and agree that the record accurately reflects by personal performance of the history, physical exam, data review, and medical decision-making, in the course for the patient. I have also personally directed the plan of care
--- NOTE | 2018-06-03 10:54 | RAD ---
Date of service: 06/03/2018 HISTORY: pre-op COMPARISON: No prior. FINDINGS: LUNGS: Patient rotated toward the right limiting the interpretation. Difficult to exclude potential infiltrate at the left base of the left hemidiaphragm is silhouetted. PLEURA: Small pleural effusions likely at the left base laterally. None is seen at the right with bilateral apices clear. No pneumothorax bilaterally. CARDIOVASCULAR: Calcific atherosclerotic changes are seen related to the thoracic aorta. Stable cardiomegaly. No pulmonary vascular congestion. OSSEOUS STRUCTURES: No significant abnormalities. VISUALIZED UPPER ABDOMEN: Normal. OTHER FINDINGS: None. IMPRESSION: Small pleural effusion present. Underlying infiltrate difficult to exclude at the left base with none on the right. Cardiomegaly is stable. No pulmonary vascular congestion apparent.
--- NOTE | 2018-06-03 12:50 | CP.PCM.PN ---
Subjective - Date & Time of Evaluation Date of Evaluation: 06/03/18 Time of Evaluation: 12:47 - Subjective Subjective: Progress note for Dr. Watson Patient is currently in hyperbaric chamber. WBC 5.0 Hgb 8.9 Afebrile Plan is for OR tomorrow for I&D of right knee to debride necrotic skin edges. Will not change spacer at that time. Discussed plan with daughter, Ruby, she understands and states plan for her mother is to go to rehab after After I&D, plan for patient to continue with hyperbaric chamber therapy Objective - Vital Signs/Intake and Output Vital Signs (last 24 hours): Temp Pulse Resp BP Pulse Ox 97.9 F 79 18 137/76 96 06/02/18 23:11 06/03/18 10:30 06/02/18 23:11 06/03/18 10:30 06/02/18 23:11 Intake and Output: 06/03/18 06/03/18 06:59 18:59 Intake Total 660 Balance 660 - Medications Medications: Current Medications Acetaminophen (Tylenol 325mg Tab) 650 mg PO Q6H PRN PRN Reason: Pain, moderate (4-7) Last Admin: 06/03/18 11:08 Dose: 650 mg Alprazolam (Xanax) 0.25 mg PO DAILY [facility]; Protocol Apixaban (Eliquis) 2.5 mg PO BID [facility]; Protocol Last Admin: 06/02/18 10:33 Dose: Not Given Atenolol (Tenormin) 25 mg PO BID [facility] Last Admin: 06/03/18 10:30 Dose: 25 mg Atorvastatin Calcium (Lipitor) 20 mg PO DIN [facility] Last Admin: 06/02/18 17:22 Dose: 20 mg Digoxin (Lanoxin) 0.25 mg PO 1400 [facility] Last Admin: 06/02/18 14:30 Dose: Not Given Enoxaparin Sodium (Lovenox) 60 mg SC Q12H [facility]; Protocol Last Admin: 05/19/18 21:00 Dose: Not Given Mirtazapine (Remeron) 15 mg PO HS [facility] Last Admin: 06/02/18 22:00 Dose: Not Given Ondansetron HCl (Zofran Inj) 4 mg IVP Q6H PRN PRN Reason: Nausea/Vomiting Pantoprazole Sodium (Protonix Ec Tab) 40 mg PO 0600 [facility] Last Admin: 06/03/18 06:23 Dose: 40 mg - Labs Labs: 06/03/18 06:15 06/03/18 06:15 PT 16.7 SECONDS (9.4-12.5) H 05/31/18 07:00 INR 1.44 05/31/18 07:00 APTT 35.2 Seconds (25.1-36.5) 05/16/18 19:12
[2018-06-03] MEDS: Digoxin 250 mcg (0.25 mg) Tab PO SCH (14:38)
--- NOTE | 2018-06-03 16:26 | CP.PCM.PN ---
<Stiven Coradokaz - Last Filed: 06/03/18 16:22> Subjective - Date & Time of Evaluation Date of Evaluation: 06/03/18 Time of Evaluation: 16:22 - Subjective Subjective: Podiatry progress note for Dr. Philip 82 y/o female seen and evaluated at bedside for infected right knee wound and osteomyelitis. Patient was resting in her bed comfortably and NAD. Patient denies any overnight complaints of F/N/V/SOB/chills. patient denies any other pedal complaints at this time. Objective - Vital Signs/Intake and Output Vital Signs (last 24 hours): Temp Pulse Resp BP Pulse Ox 97.9 F 79 18 137/76 96 06/02/18 23:11 06/03/18 10:30 06/02/18 23:11 06/03/18 10:30 06/02/18 23:11 Intake and Output: 06/03/18 06/03/18 06:59 18:59 Intake Total 660 Balance 660 - Medications Medications: Current Medications Acetaminophen (Tylenol 325mg Tab) 650 mg PO Q6H PRN PRN Reason: Pain, moderate (4-7) Last Admin: 06/03/18 11:08 Dose: 650 mg Alprazolam (Xanax) 0.25 mg PO DAILY [facility]; Protocol Apixaban (Eliquis) 2.5 mg PO BID [facility]; Protocol Last Admin: 06/02/18 10:33 Dose: Not Given Atenolol (Tenormin) 25 mg PO BID [facility] Last Admin: 06/03/18 10:30 Dose: 25 mg Atorvastatin Calcium (Lipitor) 20 mg PO DIN [facility] Last Admin: 06/02/18 17:22 Dose: 20 mg Digoxin (Lanoxin) 0.25 mg PO 1400 [facility] Last Admin: 06/02/18 14:30 Dose: Not Given Enoxaparin Sodium (Lovenox) 60 mg SC Q12H [facility]; Protocol Last Admin: 05/19/18 21:00 Dose: Not Given Mirtazapine (Remeron) 15 mg PO HS [facility] Last Admin: 06/02/18 22:00 Dose: Not Given Ondansetron HCl (Zofran Inj) 4 mg IVP Q6H PRN PRN Reason: Nausea/Vomiting Pantoprazole Sodium (Protonix Ec Tab) 40 mg PO 0600 [facility] Last Admin: 06/03/18 06:23 Dose: 40 mg - Labs Labs: 06/03/18 06:15 06/03/18 06:15 PT 16.7 SECONDS (9.4-12.5) H 05/31/18 07:00 INR 1.44 05/31/18 07:00 APTT 35.2 Seconds (25.1-36.5) 05/16/18 19:12 - Constitutional Appears: Well, Non-toxic, No Acute Distress - Head Exam Head Exam: ATRAUMATIC, NORMOCEPHALIC - Extremities Exam Additional comments: R LE focused exam: Vasc: DP/PT faintly palpable. Cap refill< 3 sec to all digits. Temp gradient warm to cool. No edema. Multiple ecchymotic patches extends from the periwound area at the knee joint all the way down to the R ankle. Mild Periwound erythema noted. Neuro: Gross and protective sensations are intact. Derm: A wound measures [id number] with central part is opened. base of the opened part is fibronecrotic. Minimal serous drainage noted. No malodor. No probe to bone, no tracking or undermining. Periwound erythema and ecchymosis noted. No clinical signs of infection. Wound regressing as skin appears to darken in color periwound and down the leg. MSK: Pain on palpating the periwound area. Muscle power around the knee joint couldn't be assessed due to pain and guarding. Passive and active ROM could be performed with guarding at the level of the R foot and ankle. - Neurological Exam Neurological Exam: Alert, Awake, Oriented x3 - Psychiatric Exam Psychiatric exam: Normal Affect, Normal Mood Assessment and Plan - Assessment and Plan (Free Text) Assessment: 82 y/o female patient with infected right knee wound and osteomyelitis Plan: Patient seen and evaluated at the bedside Plan discussed with attending Dr. Philip Charts, labs and vitals reviewed; Afebrile, No leukocytosis Wound culture: Pantonea Species Wound dressed with xeroform, 4X4 gauze, ABD and taped down as lifting leg is too painful for patient Multipodus boot is in place. Right knee x-ray - prosthesis removed, cement spacer in place Continue medical management per medicine and ID team Patient going to OR on Saturday 7:30 AM for incision and drainage of right knee wound LE venous duplex: No evidence of DVT. R knee MRI: OM can't be excluded despite there is no obvious bony erosions Podiatry will continue to follow patient while in house <Thai Philip - Last Filed: 06/03/18 16:26> Objective - Vital Signs/Intake and Output Vital Signs (last 24 hours): Temp Pulse Resp BP Pulse Ox 97.9 F 79 18 137/76 96 06/02/18 23:11 06/03/18 10:30 06/02/18 23:11 06/03/18 10:30 06/02/18 23:11 Intake and Output: 06/03/18 06/03/18 06:59 18:59 Intake Total 660 Balance 660 - Medications Medications: Current Medications Acetaminophen (Tylenol 325mg Tab) 650 mg PO Q6H PRN PRN Reason: Pain, moderate (4-7) Last Admin: 06/03/18 11:08 Dose: 650 mg Alprazolam (Xanax) 0.25 mg PO DAILY [facility]; Protocol Apixaban (Eliquis) 2.5 mg PO BID [facility]; Protocol Last Admin: 06/02/18 10:33 Dose: Not Given Atenolol (Tenormin) 25 mg PO BID [facility] Last Admin: 06/03/18 10:30 Dose: 25 mg Atorvastatin Calcium (Lipitor) 20 mg PO DIN [facility] Last Admin: 06/02/18 17:22 Dose: 20 mg Digoxin (Lanoxin) 0.25 mg PO 1400 [facility] Last Admin: 06/02/18 14:30 Dose: Not Given Enoxaparin Sodium (Lovenox) 60 mg SC Q12H [facility]; Protocol Last Admin: 05/19/18 21:00 Dose: Not Given Mirtazapine (Remeron) 15 mg PO HS [facility] Last Admin: 06/02/18 22:00 Dose: Not Given Ondansetron HCl (Zofran Inj) 4 mg IVP Q6H PRN PRN Reason: Nausea/Vomiting Pantoprazole Sodium (Protonix Ec Tab) 40 mg PO 0600 [facility] Last Admin: 06/03/18 06:23 Dose: 40 mg - Labs Labs: 06/03/18 06:15 06/03/18 06:15 PT 16.7 SECONDS (9.4-12.5) H 05/31/18 07:00 INR 1.44 05/31/18 07:00 APTT 35.2 Seconds (25.1-36.5) 05/16/18 19:12 Attending/Attestation - Attestation I have personally seen and examined this patient.: Yes I have fully participated in the care of the patient.: Yes I have reviewed all pertinent clinical information, including history, physical exam and plan: Yes
--- NOTE | 2018-06-03 18:50 | CARD ---
APPROVED REPORT Date of service: 06/03/2018 EKG Measurement Heart [id number] <Conclusion> Atrial fibrillation Nonspecific ST and T wave abnormality, probably digitalis effect Abnormal ECG
--- NOTE | 2018-06-04 03:17 | PN ---
DATE: 06/03/2018 SUBJECTIVE: The patient is in bed, no acute distress, nontoxic, seen earlier this morning. PHYSICAL EXAMINATION: VITAL SIGNS: Temperature is 97, blood pressure is 120/70 and respiratory rate is 16. HEENT: Unremarkable. NECK: Supple. LUNGS: Decreased breath sounds. HEART: Normal S1 and S2. ABDOMEN: Soft and nontender. LABORATORY DATA: Reveals a white count of 5, hemoglobin of 8 and platelets of 280,000. Chemistry reveals a BUN of 10 and creatinine of 0.5. Urinalysis is noted and microbiology reveals the patient's knee culture is noted and review of orders reveals the patient to be off of antibiotics. ASSESSMENT AND PLAN: This is an 82-year-old female who was admitted with nausea and vomiting, lactic acidosis. The patient was treated with Zyvox. 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 She had already 6 weeks of antibiotics. Currently off of antibiotics and improving her nutritional status. We will follow closely with you. Dominick Simeon MD
[2018-06-04] MEDS ORDERED: Morphine 2 mg/ml ISec IVP ONE (04:28)
[2018-06-04] MEDS: Pantoprazole 40 mg EC Tab PO SCH (05:33)
[2018-06-04 06:37] LABS: INR 1.17; PARTIAL THROMBOPLASTIN TIME 30.8 Seconds (25.1-36.5); PROTHROMBIN TIME 13.5 SECONDS (9.4-12.5)
[2018-06-04 06:43] LABS: BLOOD UREA NITROGEN 11 mg/dL (7-21); CALCIUM 8.2 mg/dL (8.4-10.5); GFR NON-AFRICAN AMERICAN > 60
[2018-06-04 07:04] LABS: BASO # 0.03 K/mm3 (0.0-2.0); BASO % 0.6 % (0.0-3.0); EOS # 0.2 (0.0-0.7); GRAN # 2.78 (1.4-6.5); GRAN % 59.2 % (50.0-68.0); LYMPH # 1.2 (1.2-3.4); LYMPH % 24.5 % (22.0-35.0); MEAN CELL VOLUME 89.2 fl (80.0-105.0); MEAN CORPUSCULAR HEMOGLOBIN 27.8 pg (25.0-35.0); MEAN CORPUSCULAR HGB CONC 31.1 g/dl (31.0-37.0); MEAN PLATELET VOLUME 10.4 fl (7.0-11.0); MONO # 0.6 (0.1-0.6); MONO % 11.7 % (1.0-6.0); RBC 3.24 10^6/uL (3.5-6.1); RED CELL DISTRIBUTION WIDTH 19.1 % (11.5-14.5); WHITE BLOOD COUNT 4.7 10^3/uL (4.5-11.0)
[2018-06-04] MEDS ORDERED: Succinylcholine 200 mg/10 ml Inj IV ONE (07:10)
[2018-06-04] MEDS ORDERED: Etomidate 20 mg/10ml Inj IV ONE (07:10)
[2018-06-04] MEDS ORDERED: Propofol 10 mg/ml Inj (20 ML) ONE (07:10)
[2018-06-04] MEDS ORDERED: Rocuronium 10 mg/ml (5 ml) ONE (07:10)
[2018-06-04] MEDS ORDERED: Calcium Chloride 1000 mg/10 ml Syringe ONE (07:15)
[2018-06-04] MEDS ORDERED: Bupivacaine 0.5% 50 ML IJ ONE (07:23)
[2018-06-04] MEDS ORDERED: Gentamicin 80 mg/2mL Inj. ONE (07:53)
[2018-06-04] MEDS ORDERED: Metoprolol 1 mg/ml Inj ONE (08:06)
[2018-06-04] MEDS ORDERED: Neostigmine Methylsulfate 3mg/3ml Syringe IV ONE (08:18)
[2018-06-04] MEDS ORDERED: Morphine 2 mg/ml ISec IVP PRN (08:41)
[2018-06-04] MEDS ORDERED: Lactated Ringer's 1,000 ML IV SCH (08:45)
--- NOTE | 2018-06-04 08:45 | CP.PCM.PN ---
<Praveen Oliveros - Last Filed: 06/04/18 14:57> Subjective - Date & Time of Evaluation Date of Evaluation: 06/04/18 Time of Evaluation: 08:00 - Subjective Subjective: Praveen Oliveros PGY-1 Progress Note for Hospitalist Service Patient currently in OR getting I&D of R knee. Per nursing, no acute events reported overnight. Patient tolerated diet last night. Upon reassessment later in morning, patient tolerated I&D well. Feels fatigued but otherwise denies chest pain, palpitations, shortness of breath, blurry vision. Objective - Vital Signs/Intake and Output Vital Signs (last 24 hours): Temp Pulse Resp BP Pulse Ox 98.2 F 78 20 1554/79 H 99 06/04/18 07:20 06/04/18 07:20 06/04/18 07:20 06/04/18 07:20 06/04/18 07:20 Intake and Output: 06/04/18 06/04/18 06:59 18:59 Intake Total 620 Balance 620 - Medications Medications: Current Medications Acetaminophen (Tylenol 325mg Tab) 650 mg PO Q6H PRN PRN Reason: Pain, moderate (4-7) Last Admin: 06/03/18 22:02 Dose: 650 mg Alprazolam (Xanax) 0.25 mg PO DAILY [facility]; Protocol Apixaban (Eliquis) 2.5 mg PO BID [facility]; Protocol Last Admin: 06/02/18 10:33 Dose: Not Given Atenolol (Tenormin) 25 mg PO BID [facility] Last Admin: 06/03/18 17:50 Dose: Not Given Atorvastatin Calcium (Lipitor) 20 mg PO DIN [facility] Last Admin: 06/03/18 17:39 Dose: 20 mg Digoxin (Lanoxin) 0.25 mg PO 1400 [facility] Last Admin: 06/03/18 14:38 Dose: Not Given Enoxaparin Sodium (Lovenox) 60 mg SC Q12H [facility]; Protocol Last Admin: 05/19/18 21:00 Dose: Not Given Mirtazapine (Remeron) 15 mg PO HS [facility] Last Admin: 06/03/18 21:46 Dose: Not Given Ondansetron HCl (Zofran Inj) 4 mg IVP Q6H PRN PRN Reason: Nausea/Vomiting Pantoprazole Sodium (Protonix Ec Tab) 40 mg PO 0600 [facility] Last Admin: 06/04/18 05:33 Dose: Not Given - Labs Labs: 06/04/18 05:40 06/04/18 05:40 PT 13.5 SECONDS (9.4-12.5) H 06/04/18 05:40 INR 1.17 06/04/18 05:40 APTT 30.8 Seconds (25.1-36.5) 06/04/18 05:40 - Additional Findings Additional findings: - Constitutional Appears: Non-toxic, No Acute Distress, Pallor - Head Exam Head Exam: ATRAUMATIC, NORMAL INSPECTION, NORMOCEPHALIC - Eye Exam Eye Exam: EOMI, Normal appearance - ENT Exam ENT Exam: Mucous Membranes Moist, Normal Exam - Neck Exam Neck Exam: Full ROM, Normal Inspection - Respiratory Exam Respiratory Exam: Clear to Ausculation Bilateral, NORMAL BREATHING PATTERN. absent: Accessory Muscle Use, Rales, Rhonchi, Wheezes, Respiratory Distress, Stridor - Cardiovascular Exam Cardiovascular Exam: REGULAR RHYTHM, +S1, +S2 - GI/Abdominal Exam GI & Abdominal Exam: Soft, Normal Bowel Sounds. absent: Distended, Firm, Guarding, Rigid, Tenderness, Organomegaly, Rebound - Extremities Exam Extremities Exam: Normal Capillary Refill. 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 PO intake improving, continuing to taper PPN. PLT count improving, on Eliquis. No sign of bleeding. Advancing diet to advanced bite size. Currently tolerating dysphagia diet. Hyperbaric oxygen therapy trial planned for 05/30. Extensive conversation with daughter Nina regarding future steps in care of her mother and our recommendation for rehabilitation. Per Dr. Oliva, patient started her 30 day course of hyperbaric therapy, 2 hours each, M-F on 05/30/18, which she tolerated. No longer HBO candidate if placement in [facility]. I&D in OR this morning with podiatry/ortho. 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 Mi) appreciated -CRP elevated b/c patient is ill; not an accurate assessment of the knee inflammation -superficial wound cx: pantoea sensitive to many abx: giving bactroban, polymixin, bacitracin ointment -Podiatry consulted. Recs appreciated. 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 If wound heals and infection eradicated, patient would be a candidate for reimplantation. MRI R knee 05/28 - difficult to exclude Osteo. No obvious bone destruction Doppler LLE - no DVT Per podiatry, as patient is going to a subacute rehab facility, patient is currently not a candidate for Hyperbaric oxygen therapy S/p debridement of necrotic skin this morning- f/u results and cultures Eliquis to resume 06/05 in AM Continue to recommend Rehab Anemia, Thrombocytopenia- resolved -pt s/p 1 unit prbc, given a dose of erythropoietin -hyperproliferative erythroid response -anemia of chronic disease -iron, b12, folate wnl -began Eliquis 05/26- will continue to monitor thrombocytopenia and increased risk of bleeding -Heme/Onc recs appreciated -medication induced thrombocytopenia; zyvox can cause cytopenias -zyvox dc'd -INR 1.27 -Transfused 1 unit PRBC 05/29 after Hgb dropped to 7.2. -began Eliquis 2.5 mg PO BID 05/26. Held 06/02 2/ upcoming I&D. Resume 06/05 AM Failure to thrive, dysphagia - improved -PPN has been tapered, but is being supplemented with Ensure. Tolerating diet. -Patient's family refusing PEG feeding at this time -Recent completion of 6 week course of Abx: zyvox and daptomycin discontinued -CT chest: no acute findings -CT head: no acute findings -EGD (04/2018): no esophageal pathology or signs of gastric outlet obstruction -repeat speech/swallow eval (05/23) -[employer] recommends trial puree consistency diet with extra gravy and thin liquids -aspiration/reflux precautions -GI recs appreciated -dysphagia, multifactorial - motility dysfunction, deconditioning -improved mentation and alertness -pt tolerating diet with no issues per nursing -neurology recommendation- no signs of neuromuscular disorder -Palliative recs: Jeannette LEVIN and I met with patients daughter's Isabel and Marii (both POA's). Family aware of mothers medical situation and poor prognosis. Benefits and burdens of feeding tube discussed at length. Daughters refusing PEG tube, in accordance of mother's AD wishes . Hospice services explained in detail. Questions answered. Daughters conflicted, state they are unable to stay home from their jobs in order to care for their mother. Daughter states that mother does not have the finances to pay for 24 hour aide or go to NH facility. Atrial fibrillation - Digoxin 0.8 (05/16), Dig 1.4 (06/02) - Atenolol 25 mg PO daily - Holding parameters placed for digoxin and atenol for low HR - Eliquis 2.5 mg BID held 06/02 08/09 pending OR I&D, resumed 06/05 AM CAD - Aspirin - Lipitor 20 mg PPx, Diet, Dispostion -DVT ppx: Eliquis on hold, SCDs -Diet: regular -Dispo: patient clinically improving, tolerating po intake Social work: Daughters agreeable to [facility] rehab. updates PT note and ID note faxed to admissions at [facility] Patient's daughters (Nina & Mary) was notified and updated on patient progress and course. Patient seen, case reviewed and plan approved by Dr. Weiss. Praveen Oliveros, PGY-1 <Gabbi Weiss - Last Filed: 06/07/18 18:22> Objective - Vital Signs/Intake and Output Vital Signs (last 24 hours): Temp Pulse Resp BP Pulse Ox 97.5 F L 72 18 114/64 97 06/07/18 06:00 06/07/18 17:46 06/07/18 06:00 06/07/18 17:46 06/07/18 06:00 Intake and Output: 06/07/18 06/07/18 06:59 18:59 Intake Total 480 Output Total 600 Balance -120 - Medications Medications: Current Medications Acetaminophen (Tylenol 325mg Tab) 650 mg PO Q6H PRN PRN Reason: Pain, moderate (4-7) Last Admin: 06/07/18 03:56 Dose: 650 mg Alprazolam (Xanax) 0.25 mg PO DAILY [facility]; Protocol Apixaban (Eliquis) 2.5 mg PO BID [facility]; Protocol Last Admin: 06/07/18 17:49 Dose: 2.5 mg Atenolol (Tenormin) 25 mg PO BID [facility] Last Admin: 06/07/18 17:46 Dose: 25 mg Atorvastatin Calcium (Lipitor) 20 mg PO DIN [facility] Last Admin: 06/07/18 17:49 Dose: 20 mg Digoxin (Lanoxin) 0.25 mg PO 1400 [facility] Last Admin: 06/07/18 15:06 Dose: 0.25 mg Enoxaparin Sodium (Lovenox) 60 mg SC Q12H [facility]; Protocol Last Admin: 05/19/18 21:00 Dose: Not Given Furosemide (Lasix) 20 mg PO DAILY [facility] Last Admin: 06/07/18 10:51 Dose: Not Given Mirtazapine (Remeron) 15 mg PO HS [facility] Last Admin: 06/06/18 21:32 Dose: Not Given Nystatin (Nystop Topical Powder) 0 gm TOP BID [facility] Last Admin: 06/07/18 17:49 Dose: 1 appl Ondansetron HCl (Zofran Inj) 4 mg IVP Q6H PRN PRN Reason: Nausea/Vomiting Oxycodone/Acetaminophen (Percocet 2.5/325 Mg Tab) 1 tab PO DAILY [facility] Pantoprazole Sodium (Protonix Ec Tab) 40 mg PO 0600 [facility] Last Admin: 06/07/18 11:06 Dose: 40 mg - Labs Labs: 06/06/18 06:30 06/06/18 06:30 PT 13.5 SECONDS (9.4-12.5) H 06/04/18 05:40 INR 1.17 06/04/18 05:40 APTT 30.8 Seconds (25.1-36.5) 06/04/18 05:40 Attending/Attestation - Attestation I have personally seen and examined this patient.: Yes I have fully participated in the care of the patient.: Yes I have reviewed all pertinent clinical information, including history, physical exam and plan: Yes Notes (Text): 06/07/18 18:22 Medical record note made by the resident after discussion with my direction and input after the patient was personally seen and examined by me. I have reviewed the chart and agree that the record accurately reflects by personal performance of the history, physical exam, data review, and medical decision-making, in the course for the patient. I have also personally directed the plan of care
--- NOTE | 2018-06-04 12:05 | CP.PCM.PN ---
<MickieParminder gonzalez - Last Filed: 06/04/18 12:02> Subjective - Date & Time of Evaluation Date of Evaluation: 06/04/18 Time of Evaluation: 12:02 - Subjective Subjective: Podiatry progress note for Dr. Oliva Objective - Vital Signs/Intake and Output Vital Signs (last 24 hours): Temp Pulse Resp BP Pulse Ox 98.2 F 59 L 16 134/61 100 06/04/18 09:35 06/04/18 09:35 06/04/18 09:35 06/04/18 09:35 06/04/18 09:35 Intake and Output: 06/04/18 06/04/18 06:59 18:59 Intake Total 620 75 Balance 620 75 - Medications Medications: Current Medications Acetaminophen (Tylenol 325mg Tab) 650 mg PO Q6H PRN PRN Reason: Pain, moderate (4-7) Last Admin: 06/03/18 22:02 Dose: 650 mg Alprazolam (Xanax) 0.25 mg PO DAILY [facility]; Protocol Apixaban (Eliquis) 2.5 mg PO BID [facility]; Protocol Last Admin: 06/02/18 10:33 Dose: Not Given Atenolol (Tenormin) 25 mg PO BID [facility] Last Admin: 06/03/18 17:50 Dose: Not Given Atorvastatin Calcium (Lipitor) 20 mg PO DIN [facility] Last Admin: 06/03/18 17:39 Dose: 20 mg Digoxin (Lanoxin) 0.25 mg PO 1400 [facility] Last Admin: 06/03/18 14:38 Dose: Not Given Enoxaparin Sodium (Lovenox) 60 mg SC Q12H [facility]; Protocol Last Admin: 05/19/18 21:00 Dose: Not Given Clindamycin Phosphate (Cleocin) 600 mg in 50 mls @ 50 mls/hr IVPB ONCE ONE; Protocol Stop: 06/04/18 16:59 Mirtazapine (Remeron) 15 mg PO HS [facility] Last Admin: 06/03/18 21:46 Dose: Not Given Morphine Sulfate (Morphine) 1 mg IVP Q15M PRN PRN Reason: Pain, moderate (4-7) Ondansetron HCl (Zofran Inj) 4 mg IVP Q6H PRN PRN Reason: Nausea/Vomiting Pantoprazole Sodium (Protonix Ec Tab) 40 mg PO 0600 [facility] Last Admin: 06/04/18 05:33 Dose: Not Given - Labs Labs: 06/04/18 05:40 06/04/18 05:40 PT 13.5 SECONDS (9.4-12.5) H 06/04/18 05:40 INR 1.17 06/04/18 05:40 APTT 30.8 Seconds (25.1-36.5) 06/04/18 05:40 - Constitutional Appears: Well, Non-toxic, No Acute Distress - Head Exam Head Exam: ATRAUMATIC, NORMOCEPHALIC - Neurological Exam Neurological Exam: Alert, Awake, Oriented x3 - Psychiatric Exam Psychiatric exam: Normal Affect, Normal Mood Assessment and Plan - Assessment and Plan (Free Text) Assessment: 82 y/o female patient seen and evaluated for right knee wound Plan: Patient was taken to the OR today for an debridement procedure, patient tolerated well As patient is going to a subacute rehab facility, patient is currently not a candidate for Hyperbaric oxygen therapy Podiatry will continue to follow patient while she is in house <Kristen Oliva - Last Filed: 06/05/18 07:52> Objective - Vital Signs/Intake and Output Vital Signs (last 24 hours): Temp Pulse Resp BP Pulse Ox 98.1 F 70 18 122/71 97 06/04/18 22:43 06/04/18 22:43 06/04/18 22:43 06/04/18 22:43 06/04/18 22:43 Intake and Output: 06/05/18 06/05/18 06:59 18:59 Intake Total 620 Balance 620 - Medications Medications: Current Medications Acetaminophen (Tylenol 325mg Tab) 650 mg PO Q6H PRN PRN Reason: Pain, moderate (4-7) Last Admin: 06/05/18 07:00 Dose: 650 mg Alprazolam (Xanax) 0.25 mg PO DAILY [facility]; Protocol Apixaban (Eliquis) 2.5 mg PO BID [facility]; Protocol Last Admin: 06/04/18 18:01 Dose: Not Given Atenolol (Tenormin) 25 mg PO BID [facility] Last Admin: 06/04/18 18:10 Dose: 25 mg Atorvastatin Calcium (Lipitor) 20 mg PO DIN [facility] Last Admin: 06/04/18 18:02 Dose: 20 mg Digoxin (Lanoxin) 0.25 mg PO 1400 [facility] Last Admin: 06/04/18 14:30 Dose: Not Given Enoxaparin Sodium (Lovenox) 60 mg SC Q12H [facility]; Protocol Last Admin: 05/19/18 21:00 Dose: Not Given Mirtazapine (Remeron) 15 mg PO HS [facility] Last Admin: 06/04/18 21:33 Dose: Not Given Morphine Sulfate (Morphine) 1 mg IVP Q15M PRN PRN Reason: Pain, moderate (4-7) Ondansetron HCl (Zofran Inj) 4 mg IVP Q6H PRN PRN Reason: Nausea/Vomiting Pantoprazole Sodium (Protonix Ec Tab) 40 mg PO 0600 [facility] Last Admin: 06/05/18 05:32 Dose: 40 mg - Labs Labs: 06/05/18 06:20 06/05/18 06:20 PT 13.5 SECONDS (9.4-12.5) H 06/04/18 05:40 INR 1.17 06/04/18 05:40 APTT 30.8 Seconds (25.1-36.5) 06/04/18 05:40 Attending/Attestation - Attestation I have personally seen and examined this patient.: Yes I have fully participated in the care of the patient.: Yes I have reviewed all pertinent clinical information, including history, physical exam and plan: Yes Notes (Text): 06/05/18 07:49 pt was seen in OR today with Dr Narvaez; pt underwent Misonic debridemnt of the right knee - pt did well and was transferred back to and floor; Case discussed with Dr Narvaez; pt cannot have daily HBO treatments if she goes to a subacute rehab; case also discussed with case management and again, even though HBO would be an adjunct treatment in preparing the bone and soft tissue for a new implant, pt would not be eligible for a daily treatment if in a subacute rehab.
[2018-06-04] MEDS: Digoxin 250 mcg (0.25 mg) Tab PO SCH (14:30)
[2018-06-04] MEDS ORDERED: Clindamycin 600mg/50ml D5W 600 MG/50 ML VIAL IVPB ONE (16:00)
--- NOTE | 2018-06-04 20:08 | OP ---
PROCEDURE DATE: 06/04/2018 PREOPERATIVE DIAGNOSES: Infected right knee, status post explantation of right total knee prosthesis. POSTOPERATIVE DIAGNOSES: Infected right knee, status post explantation of right total knee prosthesis. PROCEDURE: Incision and drainage of right knee. SURGEON: Hernan Watson MD CO-SURGEON: Kristen Oliva DPM CASH APPLICATIONS MANAGER: Samantha Broussard physician medical technician assistant ANESTHESIA: General. COMPLICATIONS: None. ESTIMATED BLOOD LOSS: 10 mL. INDICATIONS FOR PROCEDURE: This is an 82-year-old female who approximately eight weeks ago underwent explantation of infected right total knee prosthesis. Postoperatively, the patient had a 6-week course of antibiotics, but the patient had poor healing due to very poor nutrition and health status. Subsequently, the patient continued to have what appeared to be a sinus tract and some necrotic skin edges. Recommendations were for irrigation and debridement. The risks and benefits were discussed with the patient and the patient's daughters including continued chronic infection, and informed consent was obtained. OPERATIVE PROCEDURE: After the surgical site was finally verified in the preoperative holding area, the patient was taken to the operating room and placed supine on the operating room table. After administration of general anesthesia, the patient received 600 mg of clindamycin IV. Care was taken to make sure that all bony prominences and nerves were well padded and protected. A bump was placed under the right hip, and the right lower extremity was prepped and draped in the usual sterile fashion. At this point, initially some sharp debridement was done debriding any obvious necrotic or eschars around the incision. The patient was noted to have mostly healthy granulation tissue with some fibrinous material. At this point using the Misonix ultrasonic debrider, this fibrinous stuff was debrided superficially. On the lateral aspect of the midpoint incision, there was what appeared to be exposed stasis cement spacer, and some soft tissue undermining was appreciated approximately 2 to 3 cm deep. On the medial side, there was more extensive soft tissue undermining, and in this area also the soft tissues were also debrided using the Misonix debrider followed by irrigation with gentamicin irrigation. Pre and post-irrigation culture deep cultures were taken, and these were passed off the field. At this point, once the wound had been adequately debrided, a Xeroform dressing was applied. The knee immobilizer was then replaced. The patient was awakened from the procedure and taken to the recovery room in stable condition. Hernan Watson MD
[2018-06-05] MEDS: Pantoprazole 40 mg EC Tab PO SCH (05:32)
[2018-06-05 06:44] LABS: BLOOD UREA NITROGEN 11 mg/dL (7-21); CALCIUM 8.2 mg/dL (8.4-10.5); GFR NON-AFRICAN AMERICAN > 60
[2018-06-05 06:56] LABS: BASO # 0.05 K/mm3 (0.0-2.0); BASO % 0.9 % (0.0-3.0); EOS # 0.2 (0.0-0.7); EOS % 4.5 % (1.5-5.0); GRAN # 3.21 (1.4-6.5); GRAN % 59.7 % (50.0-68.0); HEMOGLOBIN 9.1 g/dL (12.0-16.0); LYMPH # 1.3 (1.2-3.4); LYMPH % 24.5 % (22.0-35.0); MEAN CELL VOLUME 89.6 fl (80.0-105.0); MEAN CORPUSCULAR HEMOGLOBIN 27.9 pg (25.0-35.0); MEAN CORPUSCULAR HGB CONC 31.2 g/dl (31.0-37.0); MEAN PLATELET VOLUME 10.6 fl (7.0-11.0); MONO # 0.6 (0.1-0.6); MONO % 10.4 % (1.0-6.0); RBC 3.26 10^6/uL (3.5-6.1); WHITE BLOOD COUNT 5.4 10^3/uL (4.5-11.0)
--- NOTE | 2018-06-05 09:57 | PN ---
DATE: 06/05/2018 SUBJECTIVE: The patient is in bed in no acute distress. No fevers. No chills. No nausea. PHYSICAL EXAMINATION: VITAL SIGNS: On exam, temperature is 98, blood pressure is 125/79 and respiratory rate of 18. HEENT: Unremarkable. NECK: Supple. LUNGS: Have decreased breath sounds. HEART: Normal S1, S2. ABDOMEN: Soft and nontender. LABORATORY EXAMINATION: Reveals a white count of 5.4, hemoglobin of 9 and platelets of 295. BUN of 11 and creatinine of 0.5. Urinalysis is noted. ASSESSMENT AND PLAN: This is an 82-year-old female who was admitted with nausea and vomiting, lactic acidosis. The patient was treated with Zyvox right knee prosthetic knee infection, hematoma, vancomycin resistant enterococcus status post debridement and placement of antibiotic spacer, had completed the antibiotics, currently off of antibiotics. This morning, the patient states that she is doing much better. Her appetite is improving. Overall, appears to be improving and Dr. Oliva's progress note from yesterday is reviewed. The patient was taken to the operating room yesterday for debridement procedure, tolerated procedure well. Hyperbaric oxygen therapy. Dr. Narvaez's operative note is also reviewed. The patient had incision and drainage of the right knee. The cultures from yesterday from the operating room pending. We will follow with you. Dominick Simeon MD
--- NOTE | 2018-06-05 10:36 | CP.PCM.PN ---
<Stiven Coradokaz - Last Filed: 06/05/18 10:52> Subjective - Date & Time of Evaluation Date of Evaluation: 06/05/18 Time of Evaluation: 10:21 - Subjective Subjective: Podiatry progress note for Dr. Oliva, 82 y/o female patient was seen POD1 s/p right knee incision and drainage with debridement of the wound. Patient tolerated the procedure well. Patient was resting comfortably in bed, and denies any other acute overnight events. Patient liekly to be discharged today to a subacute rehab facility. Objective - Vital Signs/Intake and Output Vital Signs (last 24 hours): Temp Pulse Resp BP Pulse Ox 98.5 F 76 18 125/79 97 06/05/18 06:00 06/05/18 06:00 06/05/18 06:00 06/05/18 06:00 06/05/18 06:00 Intake and Output: 06/05/18 06/05/18 06:59 18:59 Intake Total 620 Balance 620 - Medications Medications: Current Medications Acetaminophen (Tylenol 325mg Tab) 650 mg PO Q6H PRN PRN Reason: Pain, moderate (4-7) Last Admin: 06/05/18 07:00 Dose: 650 mg Alprazolam (Xanax) 0.25 mg PO DAILY [facility]; Protocol Apixaban (Eliquis) 2.5 mg PO BID [facility]; Protocol Last Admin: 06/04/18 18:01 Dose: Not Given Atenolol (Tenormin) 25 mg PO BID [facility] Last Admin: 06/04/18 18:10 Dose: 25 mg Atorvastatin Calcium (Lipitor) 20 mg PO DIN [facility] Last Admin: 06/04/18 18:02 Dose: 20 mg Digoxin (Lanoxin) 0.25 mg PO 1400 [facility] Last Admin: 06/04/18 14:30 Dose: Not Given Enoxaparin Sodium (Lovenox) 60 mg SC Q12H [facility]; Protocol Last Admin: 05/19/18 21:00 Dose: Not Given Mirtazapine (Remeron) 15 mg PO HS [facility] Last Admin: 06/04/18 21:33 Dose: Not Given Morphine Sulfate (Morphine) 1 mg IVP Q15M PRN PRN Reason: Pain, moderate (4-7) Ondansetron HCl (Zofran Inj) 4 mg IVP Q6H PRN PRN Reason: Nausea/Vomiting Pantoprazole Sodium (Protonix Ec Tab) 40 mg PO 0600 [facility] Last Admin: 06/05/18 05:32 Dose: 40 mg - Labs Labs: 06/05/18 06:20 06/05/18 06:20 PT 13.5 SECONDS (9.4-12.5) H 06/04/18 05:40 INR 1.17 06/04/18 05:40 APTT 30.8 Seconds (25.1-36.5) 06/04/18 05:40 - Constitutional Appears: Well, Non-toxic, No Acute Distress - Head Exam Head Exam: ATRAUMATIC, NORMOCEPHALIC - Extremities Exam Additional comments: R LE focused exam: Vasc: DP/PT faintly palpable. Cap refill< 3 sec to all digits. Temp gradient warm to warm. minimal edema to right knee. Mild Periwound erythema noted. Neuro: Gross and protective sensations are intact. Derm: A wound measures 10 cm X 3 cm X 0.3 cm with lateral aspect probing to bone. wound base is 30% fibrotic and 70% granular post debridement. no drainage noted. No malodor. Periwound erythema and ecchymosis noted. No clinical signs of infection MSK: Pain on palpating the periwound area. Muscle power around the knee joint couldn't be assessed due to pain and guarding. - Neurological Exam Neurological Exam: Alert, Awake, Oriented x3 - Psychiatric Exam Psychiatric exam: Normal Affect, Normal Mood Assessment and Plan - Assessment and Plan (Free Text) Assessment: 82 y/o female patient with infected right knee wound and osteomyelitis Plan: Patient seen and evaluated at the bedside POD1 s/p right knee debridement, incsion and drainage Plan discussed with attending Dr. Oliva Charts, labs and vitals reviewed; Afebrile, No leukocytosis Wound culture: Pantonea Species Wound dressed with xeroform, 4X4 gauze, ABD, Kerlix, and SHANEKA Multipodus boots in place Right knee x-ray - prosthesis removed, cement spacer in place Continue medical management per medicine and ID team LE venous duplex: No evidence of DVT R knee MRI: OM can't be excluded despite there is no obvious bony erosions Podiatry will continue to follow patient while in house <Kristen Oliva - Last Filed: 06/13/18 15:24> Objective - Vital Signs/Intake and Output Vital Signs (last 24 hours): Temp Pulse Resp BP Pulse Ox 97.6 F 60 18 117/65 98 06/13/18 14:00 06/13/18 14:00 06/13/18 14:00 06/13/18 14:00 06/13/18 14:00 Intake and Output: 06/13/18 06/13/18 06:59 18:59 Intake Total 720 450 Output Total 600 Balance 120 450 - Medications Medications: Current Medications Acetaminophen (Tylenol 325mg Tab) 650 mg PO Q6H PRN PRN Reason: Pain, moderate (4-7) Last Admin: 06/12/18 22:02 Dose: 650 mg Alprazolam (Xanax) 0.25 mg PO DAILY [facility]; Protocol PRN Reason: BEFORE HBO Last Admin: 06/13/18 11:03 Dose: 0.25 mg Apixaban (Eliquis) 2.5 mg PO BID [facility]; Protocol Last Admin: 06/13/18 09:04 Dose: 2.5 mg Atenolol (Tenormin) 25 mg PO BID [facility] Last Admin: 06/13/18 09:04 Dose: 25 mg Atorvastatin Calcium (Lipitor) 20 mg PO DIN [facility] Last Admin: 06/12/18 17:18 Dose: 20 mg Digoxin (Lanoxin) 0.25 mg PO 1400 [facility] Last Admin: 06/12/18 14:19 Dose: 0.25 mg Enoxaparin Sodium (Lovenox) 60 mg SC Q12H [facility]; Protocol Last Admin: 05/19/18 21:00 Dose: Not Given Furosemide (Lasix) 20 mg PO DAILY [facility] Last Admin: 06/13/18 09:04 Dose: 20 mg Meropenem (Merrem Iv 1 Gm Premix) 1 gm in 50 mls @ 100 mls/hr IVPB Q8 [facility]; Pro tocol Stop: 06/17/18 22:01 Last Admin: 06/13/18 05:21 Dose: 100 mls/hr Mirtazapine (Remeron) 15 mg PO HS [facility] Last Admin: 06/12/18 22:01 Dose: Not Given Nystatin (Nystop Topical Powder) 0 gm TOP BID [facility] Last Admin: 06/13/18 11:04 Dose: 1 appl Ondansetron HCl (Zofran Inj) 4 mg IVP Q6H PRN PRN Reason: Nausea/Vomiting Oxycodone/Acetaminophen (Percocet 2.5/325 Mg Tab) 1 tab PO DAILY PRN PRN Reason: Pain, moderate (4-7) Last Admin: 06/13/18 11:03 Dose: 1 tab Pantoprazole Sodium (Protonix Ec Tab) 40 mg PO 0600 [facility] Last Admin: 06/13/18 05:21 Dose: 40 mg Vitamin A (Vitamin A & D Oint Ud Foilpak) 1 ea TOP DAILY PRN PRN Reason: Dry skin - Labs Labs: 06/13/18 06:45 06/13/18 06:45 PT 13.5 SECONDS (9.4-12.5) H 06/04/18 05:40 INR 1.17 06/04/18 05:40 APTT 30.8 Seconds (25.1-36.5) 06/04/18 05:40 Attending/Attestation - Attestation I have personally seen and examined this patient.: Yes I have fully participated in the care of the patient.: Yes I have reviewed all pertinent clinical information, including history, physical exam and plan: Yes
--- NOTE | 2018-06-05 14:33 | CP.PCM.PN ---
<Praveen Oliveros - Last Filed: 06/05/18 14:24> Subjective - Date & Time of Evaluation Date of Evaluation: 06/05/18 Time of Evaluation: 09:00 - Subjective Subjective: Praveen Oliveros PGY-1 Progress Note for Hospitalist Service Patient seen and evaluated at bedside. No acute events reported overnight. Patient tolerated diet last night. POD#1 R knee debridement of fibrinous material. Patient denies chest pain, palpitations, shortness of breath, blurry vision, calf pain. Objective - Vital Signs/Intake and Output Vital Signs (last 24 hours): Temp Pulse Resp BP Pulse Ox 98.5 F 72 18 123/68 97 06/05/18 06:00 06/05/18 10:42 06/05/18 06:00 06/05/18 10:42 06/05/18 06:00 Intake and Output: 06/05/18 06/05/18 06:59 18:59 Intake Total 620 Balance 620 - Medications Medications: Current Medications Acetaminophen (Tylenol 325mg Tab) 650 mg PO Q6H PRN PRN Reason: Pain, moderate (4-7) Last Admin: 06/05/18 07:00 Dose: 650 mg Alprazolam (Xanax) 0.25 mg PO DAILY [facility]; Protocol Apixaban (Eliquis) 2.5 mg PO BID [facility]; Protocol Last Admin: 06/05/18 10:43 Dose: 2.5 mg Atenolol (Tenormin) 25 mg PO BID [facility] Last Admin: 06/05/18 10:42 Dose: 25 mg Atorvastatin Calcium (Lipitor) 20 mg PO DIN [facility] Last Admin: 06/04/18 18:02 Dose: 20 mg Digoxin (Lanoxin) 0.25 mg PO 1400 [facility] Last Admin: 06/04/18 14:30 Dose: Not Given Enoxaparin Sodium (Lovenox) 60 mg SC Q12H [facility]; Protocol Last Admin: 05/19/18 21:00 Dose: Not Given Furosemide (Lasix) 20 mg PO DAILY [facility] Mirtazapine (Remeron) 15 mg PO HS [facility] Last Admin: 06/04/18 21:33 Dose: Not Given Morphine Sulfate (Morphine) 1 mg IVP Q15M PRN PRN Reason: Pain, moderate (4-7) Ondansetron HCl (Zofran Inj) 4 mg IVP Q6H PRN PRN Reason: Nausea/Vomiting Pantoprazole Sodium (Protonix Ec Tab) 40 mg PO 0600 [facility] Last Admin: 06/05/18 05:32 Dose: 40 mg - Labs Labs: 06/05/18 06:20 06/05/18 06:20 PT 13.5 SECONDS (9.4-12.5) H 06/04/18 05:40 INR 1.17 06/04/18 05:40 APTT 30.8 Seconds (25.1-36.5) 06/04/18 05:40 - Additional Findings Additional findings: - Constitutional Appears: Non-toxic, No Acute Distress, Pallor - Head Exam Head Exam: ATRAUMATIC, NORMAL INSPECTION, NORMOCEPHALIC - Eye Exam Eye Exam: EOMI, Normal appearance - ENT Exam ENT Exam: Mucous Membranes Moist, Normal Exam - Neck Exam Neck Exam: Full ROM, Normal Inspection - Respiratory Exam Respiratory Exam: Clear to Ausculation Bilateral, NORMAL BREATHING PATTERN. absent: Accessory Muscle Use, Rales, Rhonchi, Wheezes, Respiratory Distress, Stridor - Cardiovascular Exam Cardiovascular Exam: REGULAR RHYTHM, +S1, +S2 - GI/Abdominal Exam GI & Abdominal Exam: Soft, Normal Bowel Sounds. absent: Distended, Firm, Guarding, Rigid, Tenderness, Organomegaly, Rebound - Extremities Exam Extremities Exam: Normal Capillary Refill. 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 PO intake improving, continuing to taper PPN. PLT count improving, on Eliquis. No sign of bleeding. Advancing diet to advanced bite size. Currently tolerating dysphagia diet. Hyperbaric oxygen therapy trial planned for 05/30. Dr. Oliva and Dr. Watson continue to recommend her 30 day course of hyperbaric therapy, 2 hours each, M-F, casey began on 05/30/18 which she tolerated. Per CM, unable to receive HBO if placement in [facility]. I&D in OR yesterday with podiatry/ortho. 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 Mi) appreciated -CRP elevated b/c patient is ill; not an accurate assessment of the knee inflammation -superficial wound cx: pantoea sensitive to many abx: giving bactroban, polymixin, bacitracin ointment -Podiatry consulted. Recs appreciated. Ortho 05/29: At this time, given that patient has a periprosthetic infection involving skin, soft tissues and bone, pt would benefit from local wound debridement and hyperbaric therapy if no medical contraindications. If wound heals and infection eradicated, patient would be a candidate for reimplantation. MRI R knee 05/28 - difficult to exclude Osteo. No obvious bone destruction Doppler LLE - no DVT Per podiatry, as patient is going to a subacute rehab facility, patient is currently not a candidate for Hyperbaric oxygen therapy POD #1 debridement of necrotic skin - f/u results and cultures Eliquis resumed 06/05 in AM Continue to recommend Rehab Began Lasix 20 mg PO daily for pedal edema Anemia, Thrombocytopenia- resolved -pt s/p 1 unit prbc, given a dose of erythropoietin -hyperproliferative erythroid response -anemia of chronic disease -iron, b12, folate wnl -began Eliquis 05/26- will continue to monitor thrombocytopenia and increased risk of bleeding -Heme/Onc recs appreciated -medication induced thrombocytopenia; zyvox can cause cytopenias -zyvox dc'd -INR 1.27 -Transfused 1 unit PRBC 05/29 after Hgb dropped to 7.2. -began Eliquis 2.5 mg PO BID 05/26. Held 06/02 08/09 upcoming I&D. Resume 06/05 AM Failure to thrive, dysphagia - improved -PPN has been tapered, but is being supplemented with Ensure. Tolerating diet. -Patient's family refusing PEG feeding at this time -Recent completion of 6 week course of Abx: zyvox and daptomycin discontinued -CT chest: no acute findings -CT head: no acute findings -EGD (04/2018): no esophageal pathology or signs of gastric outlet obstruction -repeat speech/swallow eval (05/23) -MANAGER ERP recommends trial puree consistency diet with extra gravy and thin liquids -aspiration/reflux precautions -GI recs appreciated -dysphagia, multifactorial - motility dysfunction, deconditioning -improved mentation and alertness -pt tolerating diet with no issues per nursing -neurology recommendation- no signs of neuromuscular disorder -Palliative recs: Jeannette LEVIN and I met with patients daughter's Isabel and Marii (both POA's). Family aware of mothers medical situation and poor prognosis. Benefits and burdens of feeding tube discussed at length. Daughters refusing PEG tube, in accordance of mother's AD wishes . Hospice services explained in detail. Questions answered. Daughters conflicted, state they are unable to stay home from their jobs in order to care for their mother. Daughter states that mother does not have the finances to pay for 24 hour aide or go to [place] facility. Atrial fibrillation - Digoxin 0.8 (05/16), Dig 1.4 (06/02) - Atenolol 25 mg PO daily - Holding parameters placed for digoxin and atenol for low HR - Eliquis 2.5 mg BID held 06/02 08/09 pending OR I&D, resumed 06/05 AM CAD - Aspirin held 06/[address] Medrano 08/09 high bleeding risk on Eliquis - Lipitor 20 mg PPx, Diet, Dispostion -DVT ppx: Eliquis on hold, SCDs -Diet: regular -Dispo: patient clinically improving, tolerating po intake Social work: Daughters agreeable to [facility] rehab. updates PT note and ID note faxed to admissions at [facility] and [facility] Patient's daughters (Nina & Mary) was notified and updated on patient progress and course. Patient seen, case reviewed and plan approved by Dr. Weiss. Praveen Oliveros, PGY-1 <Gabbi Weiss - Last Filed: 06/07/18 18:22> Objective - Vital Signs/Intake and Output Vital Signs (last 24 hours): Temp Pulse Resp BP Pulse Ox 97.5 F L 72 18 114/64 97 06/07/18 06:00 06/07/18 17:46 06/07/18 06:00 06/07/18 17:46 06/07/18 06:00 Intake and Output: 06/07/18 06/07/18 06:59 18:59 Intake Total 480 Output Total 600 Balance -120 - Medications Medications: Current Medications Acetaminophen (Tylenol 325mg Tab) 650 mg PO Q6H PRN PRN Reason: Pain, moderate (4-7) Last Admin: 06/07/18 03:56 Dose: 650 mg Alprazolam (Xanax) 0.25 mg PO DAILY [facility]; Protocol Apixaban (Eliquis) 2.5 mg PO BID [facility]; Protocol Last Admin: 06/07/18 17:49 Dose: 2.5 mg Atenolol (Tenormin) 25 mg PO BID [facility] Last Admin: 06/07/18 17:46 Dose: 25 mg Atorvastatin Calcium (Lipitor) 20 mg PO DIN [facility] Last Admin: 06/07/18 17:49 Dose: 20 mg Digoxin (Lanoxin) 0.25 mg PO 1400 [facility] Last Admin: 06/07/18 15:06 Dose: 0.25 mg Enoxaparin Sodium (Lovenox) 60 mg SC Q12H [facility]; Protocol Last Admin: 05/19/18 21:00 Dose: Not Given Furosemide (Lasix) 20 mg PO DAILY [facility] Last Admin: 06/07/18 10:51 Dose: Not Given Mirtazapine (Remeron) 15 mg PO HS [facility] Last Admin: 06/06/18 21:32 Dose: Not Given Nystatin (Nystop Topical Powder) 0 gm TOP BID [facility] Last Admin: 06/07/18 17:49 Dose: 1 appl Ondansetron HCl (Zofran Inj) 4 mg IVP Q6H PRN PRN Reason: Nausea/Vomiting Oxycodone/Acetaminophen (Percocet 2.5/325 Mg Tab) 1 tab PO DAILY [facility] Pantoprazole Sodium (Protonix Ec Tab) 40 mg PO 0600 [facility] Last Admin: 06/07/18 11:06 Dose: 40 mg - Labs Labs: 06/06/18 06:30 06/06/18 06:30 PT 13.5 SECONDS (9.4-12.5) H 06/04/18 05:40 INR 1.17 06/04/18 05:40 APTT 30.8 Seconds (25.1-36.5) 06/04/18 05:40 Attending/Attestation - Attestation I have personally seen and examined this patient.: Yes I have fully participated in the care of the patient.: Yes I have reviewed all pertinent clinical information, including history, physical exam and plan: Yes Notes (Text): 06/07/18 18:22 Medical record note made by the resident after discussion with my direction and input after the patient was personally seen and examined by me. I have reviewed the chart and agree that the record accurately reflects by personal performance of the history, physical exam, data review, and medical decision-making, in the course for the patient. I have also personally directed the plan of care
[2018-06-05] MEDS: Digoxin 250 mcg (0.25 mg) Tab PO SCH (14:56)
[2018-06-06] MEDS: Pantoprazole 40 mg EC Tab PO SCH ×2 (05:25→11:24)
[2018-06-06 06:55] LABS: BLOOD UREA NITROGEN 11 mg/dL (7-21); CALCIUM 8.1 mg/dL (8.4-10.5); GFR NON-AFRICAN AMERICAN > 60
[2018-06-06 07:06] LABS: BASO # 0.03 K/mm3 (0.0-2.0); BASO % 0.3 % (0.0-3.0); EOS # 0.2 (0.0-0.7); EOS % 1.8 % (1.5-5.0); GRAN # 6.73 (1.4-6.5); GRAN % 72.2 % (50.0-68.0); HEMOGLOBIN 9.1 g/dL (12.0-16.0); LYMPH # 1.7 (1.2-3.4); LYMPH % 18.2 % (22.0-35.0); MEAN CELL VOLUME 89.2 fl (80.0-105.0); MEAN CORPUSCULAR HEMOGLOBIN 28.2 pg (25.0-35.0); MEAN CORPUSCULAR HGB CONC 31.6 g/dl (31.0-37.0); MEAN PLATELET VOLUME 10.4 fl (7.0-11.0); MONO # 0.7 (0.1-0.6); MONO % 7.5 % (1.0-6.0); RBC 3.23 10^6/uL (3.5-6.1); RED CELL DISTRIBUTION WIDTH 18.5 % (11.5-14.5); WHITE BLOOD COUNT 9.3 10^3/uL (4.5-11.0)
--- NOTE | 2018-06-06 11:11 | CP.PCM.PN ---
<Stiven Coradokaz - Last Filed: 06/06/18 11:09> Subjective - Date & Time of Evaluation Date of Evaluation: 06/06/18 Time of Evaluation: 11:09 - Subjective Subjective: Podiatry progress note for Dr. Philip, 82 y/o female patient was seen POD3 s/p right knee incision and drainage with debridement of the wound. Patient tolerated the procedure well. Patient was resting comfortably in bed, and denies any other acute overnight events. Patient liekly to be discharged today to a subacute rehab facility. Objective - Vital Signs/Intake and Output Vital Signs (last 24 hours): Temp Pulse Resp BP Pulse Ox 98 F 75 20 137/71 98 06/06/18 06:00 06/06/18 06:00 06/06/18 06:00 06/06/18 06:00 06/06/18 06:00 Intake and Output: 06/06/18 06/06/18 06:59 18:59 Intake Total 900 Output Total 700 Balance 200 - Medications Medications: Current Medications Acetaminophen (Tylenol 325mg Tab) 650 mg PO Q6H PRN PRN Reason: Pain, moderate (4-7) Last Admin: 06/05/18 07:00 Dose: 650 mg Alprazolam (Xanax) 0.25 mg PO DAILY [facility]; Protocol Apixaban (Eliquis) 2.5 mg PO BID [facility]; Protocol Last Admin: 06/05/18 17:15 Dose: 2.5 mg Atenolol (Tenormin) 25 mg PO BID [facility] Last Admin: 06/05/18 17:15 Dose: 25 mg Atorvastatin Calcium (Lipitor) 20 mg PO DIN [facility] Last Admin: 06/05/18 16:54 Dose: 20 mg Digoxin (Lanoxin) 0.25 mg PO 1400 [facility] Last Admin: 06/05/18 14:56 Dose: 0.25 mg Enoxaparin Sodium (Lovenox) 60 mg SC Q12H [facility]; Protocol Last Admin: 05/19/18 21:00 Dose: Not Given Furosemide (Lasix) 20 mg PO DAILY [facility] Last Admin: 06/05/18 17:35 Dose: Not Given Mirtazapine (Remeron) 15 mg PO HS [facility] Last Admin: 06/05/18 21:03 Dose: Not Given Morphine Sulfate (Morphine) 1 mg IVP Q15M PRN PRN Reason: Pain, moderate (4-7) Ondansetron HCl (Zofran Inj) 4 mg IVP Q6H PRN PRN Reason: Nausea/Vomiting Pantoprazole Sodium (Protonix Ec Tab) 40 mg PO 0600 [facility] Last Admin: 06/06/18 05:25 Dose: Not Given - Labs Labs: 06/06/18 06:30 06/06/18 06:30 PT 13.5 SECONDS (9.4-12.5) H 06/04/18 05:40 INR 1.17 06/04/18 05:40 APTT 30.8 Seconds (25.1-36.5) 06/04/18 05:40 - Constitutional Appears: Well, Non-toxic, No Acute Distress - Head Exam Head Exam: ATRAUMATIC, NORMOCEPHALIC - Extremities Exam Additional comments: Dressing kept clean, dry and intact - Neurological Exam Neurological Exam: Alert, Awake, Oriented x3 - Psychiatric Exam Psychiatric exam: Normal Affect, Normal Mood Assessment and Plan - Assessment and Plan (Free Text) Assessment: 82 y/o female patient with infected right knee wound and osteomyelitis Plan: Patient seen and evaluated at the bedside POD3 s/p right knee debridement, incsion and drainage Plan discussed with attending Dr. Philip Charts, labs and vitals reviewed; Afebrile, No leukocytosis Wound culture: Pantonea Species Wound C/D/I Multipodus boots in place Right knee x-ray - prosthesis removed, cement spacer in place Continue medical management per medicine and ID team LE venous duplex: No evidence of DVT R knee MRI: OM can't be excluded despite there is no obvious bony erosions Podiatry will continue to follow patient while in house <Thai Philip - Last Filed: 06/06/18 16:17> Objective - Vital Signs/Intake and Output Vital Signs (last 24 hours): Temp Pulse Resp BP Pulse Ox 98 F 75 20 129/74 98 06/06/18 06:00 06/06/18 11:24 06/06/18 06:00 06/06/18 11:25 06/06/18 06:00 Intake and Output: 06/06/18 06/06/18 06:59 18:59 Intake Total 900 Output Total 700 Balance 200 - Medications Medications: Current Medications Acetaminophen (Tylenol 325mg Tab) 650 mg PO Q6H PRN PRN Reason: Pain, moderate (4-7) Last Admin: 06/05/18 07:00 Dose: 650 mg Alprazolam (Xanax) 0.25 mg PO DAILY [facility]; Protocol Apixaban (Eliquis) 2.5 mg PO BID [facility]; Protocol Last Admin: 06/06/18 11:24 Dose: 2.5 mg Atenolol (Tenormin) 25 mg PO BID [facility] Last Admin: 06/06/18 11:24 Dose: 25 mg Atorvastatin Calcium (Lipitor) 20 mg PO DIN [facility] Last Admin: 06/05/18 16:54 Dose: 20 mg Digoxin (Lanoxin) 0.25 mg PO 1400 [facility] Last Admin: 06/05/18 14:56 Dose: 0.25 mg Enoxaparin Sodium (Lovenox) 60 mg SC Q12H [facility]; Protocol Last Admin: 05/19/18 21:00 Dose: Not Given Furosemide (Lasix) 20 mg PO DAILY [facility] Last Admin: 06/06/18 11:25 Dose: Not Given Mirtazapine (Remeron) 15 mg PO HS [facility] Last Admin: 06/05/18 21:03 Dose: Not Given Ondansetron HCl (Zofran Inj) 4 mg IVP Q6H PRN PRN Reason: Nausea/Vomiting Oxycodone/Acetaminophen (Percocet 2.5/325 Mg Tab) 1 tab PO DAILY [facility] Pantoprazole Sodium (Protonix Ec Tab) 40 mg PO 0600 [facility] Last Admin: 06/06/18 11:24 Dose: 40 mg - Labs Labs: 06/06/18 06:30 06/06/18 06:30 PT 13.5 SECONDS (9.4-12.5) H 06/04/18 05:40 INR 1.17 06/04/18 05:40 APTT 30.8 Seconds (25.1-36.5) 06/04/18 05:40 Attending/Attestation - Attestation I have personally seen and examined this patient.: Yes I have fully participated in the care of the patient.: Yes I have reviewed all pertinent clinical information, including history, physical exam and plan: Yes
--- NOTE | 2018-06-06 15:48 | CP.PCM.PN ---
<Praveen Oliveros - Last Filed: 06/06/18 16:11> Subjective - Date & Time of Evaluation Date of Evaluation: 06/06/18 Time of Evaluation: 09:00 - Subjective Subjective: Praveen Oliveros PGY-1 Progress Note for Hospitalist Service Patient seen and evaluated at bedside. No acute events reported overnight. Patient tolerated diet last night. POD#2 R knee debridement of fibrinous material. Patient denies chest pain, palpitations, shortness of breath, blurry vision, calf pain. Objective - Vital Signs/Intake and Output Vital Signs (last 24 hours): Temp Pulse Resp BP Pulse Ox 98 F 75 20 129/74 98 06/06/18 06:00 06/06/18 11:24 06/06/18 06:00 06/06/18 11:25 06/06/18 06:00 Intake and Output: 06/06/18 06/06/18 06:59 18:59 Intake Total 900 Output Total 700 Balance 200 - Medications Medications: Current Medications Acetaminophen (Tylenol 325mg Tab) 650 mg PO Q6H PRN PRN Reason: Pain, moderate (4-7) Last Admin: 06/05/18 07:00 Dose: 650 mg Alprazolam (Xanax) 0.25 mg PO DAILY [facility]; Protocol Apixaban (Eliquis) 2.5 mg PO BID [facility]; Protocol Last Admin: 06/06/18 11:24 Dose: 2.5 mg Atenolol (Tenormin) 25 mg PO BID [facility] Last Admin: 06/06/18 11:24 Dose: 25 mg Atorvastatin Calcium (Lipitor) 20 mg PO DIN [facility] Last Admin: 06/05/18 16:54 Dose: 20 mg Digoxin (Lanoxin) 0.25 mg PO 1400 [facility] Last Admin: 06/05/18 14:56 Dose: 0.25 mg Enoxaparin Sodium (Lovenox) 60 mg SC Q12H [facility]; Protocol Last Admin: 05/19/18 21:00 Dose: Not Given Furosemide (Lasix) 20 mg PO DAILY [facility] Last Admin: 06/06/18 11:25 Dose: Not Given Mirtazapine (Remeron) 15 mg PO HS [facility] Last Admin: 06/05/18 21:03 Dose: Not Given Ondansetron HCl (Zofran Inj) 4 mg IVP Q6H PRN PRN Reason: Nausea/Vomiting Oxycodone/Acetaminophen (Percocet 2.5/325 Mg Tab) 1 tab PO DAILY [facility] Pantoprazole Sodium (Protonix Ec Tab) 40 mg PO 0600 [facility] Last Admin: 06/06/18 11:24 Dose: 40 mg - Labs Labs: 06/06/18 06:30 06/06/18 06:30 PT 13.5 SECONDS (9.4-12.5) H 06/04/18 05:40 INR 1.17 06/04/18 05:40 APTT 30.8 Seconds (25.1-36.5) 06/04/18 05:40 - Additional Findings Additional findings: - Constitutional Appears: Non-toxic, No Acute Distress, Pallor - Head Exam Head Exam: ATRAUMATIC, NORMAL INSPECTION, NORMOCEPHALIC - Eye Exam Eye Exam: EOMI, Normal appearance - ENT Exam ENT Exam: Mucous Membranes Moist, Normal Exam - Neck Exam Neck Exam: Full ROM, Normal Inspection - Respiratory Exam Respiratory Exam: Clear to Ausculation Bilateral, NORMAL BREATHING PATTERN. absent: Accessory Muscle Use, Rales, Rhonchi, Wheezes, Respiratory Distress, Stridor - Cardiovascular Exam Cardiovascular Exam: REGULAR RHYTHM, +S1, +S2 - GI/Abdominal Exam GI & Abdominal Exam: Soft, Normal Bowel Sounds. absent: Distended, Firm, Guarding, Rigid, Tenderness, Organomegaly, Rebound - Extremities Exam Extremities Exam: Normal Capillary Refill. 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 PO intake improving, continuing to taper PPN. PLT count improving, on Eliquis. No sign of bleeding. Advancing diet to advanced bite size. Currently tolerating dysphagia diet. Hyperbaric oxygen therapy trial planned for 05/30. Dr. Oliva and Dr. Watson continue to recommend her 30 day course of hyperbaric therapy, 2 hours each, M-F, casey began on 05/30/18 which she tolerated. Per CM, unable to receive HBO if placement in [facility]. I&D in [place] 06/04 with podiatry/ortho. 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 Mi) appreciated -CRP elevated b/c patient is ill; not an accurate assessment of the knee inflammation -superficial wound cx: pantoea sensitive to many abx: giving bactroban, polymixin, bacitracin ointment -Podiatry consulted. Recs appreciated. Ortho 05/29: At this time, given that patient has a periprosthetic infection involving skin, soft tissues and bone, pt would benefit from local wound debridement and hyperbaric therapy if no medical contraindications. If wound heals and infection eradicated, patient would be a candidate for reimplantation. MRI R knee 05/28 - difficult to exclude Osteo. No obvious bone destruction Doppler LLE - no DVT Per podiatry, as patient is going to a subacute rehab facility, patient is currently not a candidate for Hyperbaric oxygen therapy POD #2 debridement of necrotic skin - prelim micro 06/06 from knee shows gram negative sonido and pseudomonas. Eliquis resumed 06/05 in AM Continue to recommend Rehab Began Lasix 20 mg PO daily for pedal edema - Percocet 2.5 mg to be given one hour before therapy Anemia, Thrombocytopenia- resolved -pt s/p 1 unit prbc, given a dose of erythropoietin -hyperproliferative erythroid response -anemia of chronic disease -iron, b12, folate wnl -began Eliquis 05/26- will continue to monitor thrombocytopenia and increased risk of bleeding -Heme/Onc recs appreciated -medication induced thrombocytopenia; zyvox can cause cytopenias -zyvox dc'd -INR 1.27 -Transfused 1 unit PRBC 05/29 after Hgb dropped to 7.2. -began Eliquis 2.5 mg PO BID 05/26. Held 06/02 2/2 upcoming I&D. Resume 06/05 AM Failure to thrive, dysphagia - improved -PPN has been tapered, but is being supplemented with Ensure. Tolerating diet. -Patient's family refusing PEG feeding at this time -Recent completion of 6 week course of Abx: zyvox and daptomycin discontinued -CT chest: no acute findings -CT head: no acute findings -EGD (04/2018): no esophageal pathology or signs of gastric outlet obstruction -repeat speech/swallow eval (05/23) -[employer] recommends trial puree consistency diet with extra gravy and thin liquids -aspiration/reflux precautions -GI recs appreciated -dysphagia, multifactorial - motility dysfunction, deconditioning -improved mentation and alertness -pt tolerating diet with no issues per nursing -neurology recommendation- no signs of neuromuscular disorder -Palliative recs: Jeannette LEVIN and I met with patients daughter's Isabel and Marii (both POA's). Family aware of mothers medical situation and poor prognosis. Benefits and burdens of feeding tube discussed at length. Daughters refusing PEG tube, in accordance of mother's AD wishes . Hospice services explained in detail. Questions answered. Daughters conflicted, state they are unable to stay home from their jobs in order to care for their mother. Daughter states that mother does not have the finances to pay for 24 hour aide or go to NH facility. Atrial fibrillation - Digoxin 0.8 (05/16), Dig 1.4 (06/02) - Atenolol 25 mg PO daily - Holding parameters placed for digoxin and atenol for low HR - Eliquis 2.5 mg BID held 06/02 2/ pending OR I&D, resumed 06/05 AM CAD - Aspirin held 06/[address] Medrano 08/09 high bleeding risk on Eliquis - Lipitor 20 mg PPx, Diet, Dispostion -DVT ppx: Eliquis, SCDs -Diet: regular -Dispo: patient clinically improving, tolerating po intake Social work: Daughters agreeable to [facility] rehab. updates PT note and ID note faxed to admissions at [facility] and [facility] Patient's daughters (Nina & Mary) was notified and updated on patient progress and course. Continue to encourage compliance with rehab. Patient seen, case reviewed and plan approved by Dr. Weiss. Praveen Oliveros, PGY-1 <Gabbi Weiss - Last Filed: 06/07/18 18:22> Objective - Vital Signs/Intake and Output Vital Signs (last 24 hours): Temp Pulse Resp BP Pulse Ox 97.5 F L 72 18 114/64 97 06/07/18 06:00 06/07/18 17:46 06/07/18 06:00 06/07/18 17:46 06/07/18 06:00 Intake and Output: 06/07/18 06/07/18 06:59 18:59 Intake Total 480 Output Total 600 Balance -120 - Medications Medications: Current Medications Acetaminophen (Tylenol 325mg Tab) 650 mg PO Q6H PRN PRN Reason: Pain, moderate (4-7) Last Admin: 06/07/18 03:56 Dose: 650 mg Alprazolam (Xanax) 0.25 mg PO DAILY [facility]; Protocol Apixaban (Eliquis) 2.5 mg PO BID [facility]; Protocol Last Admin: 06/07/18 17:49 Dose: 2.5 mg Atenolol (Tenormin) 25 mg PO BID [facility] Last Admin: 06/07/18 17:46 Dose: 25 mg Atorvastatin Calcium (Lipitor) 20 mg PO DIN [facility] Last Admin: 06/07/18 17:49 Dose: 20 mg Digoxin (Lanoxin) 0.25 mg PO 1400 [facility] Last Admin: 06/07/18 15:06 Dose: 0.25 mg Enoxaparin Sodium (Lovenox) 60 mg SC Q12H [facility]; Protocol Last Admin: 05/19/18 21:00 Dose: Not Given Furosemide (Lasix) 20 mg PO DAILY [facility] Last Admin: 06/07/18 10:51 Dose: Not Given Mirtazapine (Remeron) 15 mg PO HS [facility] Last Admin: 06/06/18 21:32 Dose: Not Given Nystatin (Nystop Topical Powder) 0 gm TOP BID [facility] Last Admin: 06/07/18 17:49 Dose: 1 appl Ondansetron HCl (Zofran Inj) 4 mg IVP Q6H PRN PRN Reason: Nausea/Vomiting Oxycodone/Acetaminophen (Percocet 2.5/325 Mg Tab) 1 tab PO DAILY [facility] Pantoprazole Sodium (Protonix Ec Tab) 40 mg PO 0600 [facility] Last Admin: 06/07/18 11:06 Dose: 40 mg - Labs Labs: 06/06/18 06:30 06/06/18 06:30 PT 13.5 SECONDS (9.4-12.5) H 06/04/18 05:40 INR 1.17 06/04/18 05:40 APTT 30.8 Seconds (25.1-36.5) 06/04/18 05:40 Attending/Attestation - Attestation I have personally seen and examined this patient.: Yes I have fully participated in the care of the patient.: Yes I have reviewed all pertinent clinical information, including history, physical exam and plan: Yes Notes (Text): 06/07/18 18:22 Medical record note made by the resident after discussion with my direction and input after the patient was personally seen and examined by me. I have reviewed the chart and agree that the record accurately reflects by personal performance of the history, physical exam, data review, and medical decision-making, in the course for the patient. I have also personally directed the plan of care
[2018-06-06] MEDS: Digoxin 250 mcg (0.25 mg) Tab PO SCH (17:54)
--- NOTE | 2018-06-06 21:31 | CP.PCM.PN ---
Subjective - Date & Time of Evaluation Date of Evaluation: 06/06/18 Time of Evaluation: 08:45 - Subjective Subjective: Comfortable, ate her breakfast without issues, no fevers. No increased pain in her left knee. Objective - Vital Signs/Intake and Output Vital Signs (last 24 hours): Temp Pulse Resp BP Pulse Ox 98.1 F 68 18 118/58 L 95 06/05/18 21:38 06/05/18 21:38 06/05/18 21:38 06/05/18 21:38 06/05/18 21:38 Intake and Output: 06/05/18 06/06/18 18:59 06:59 Intake Total 900 Output Total 700 Balance 200 - Medications Medications: Current Medications Acetaminophen (Tylenol 325mg Tab) 650 mg PO Q6H PRN PRN Reason: Pain, moderate (4-7) Last Admin: 06/05/18 07:00 Dose: 650 mg Alprazolam (Xanax) 0.25 mg PO DAILY [facility]; Protocol Apixaban (Eliquis) 2.5 mg PO BID [facility]; Protocol Last Admin: 06/05/18 17:15 Dose: 2.5 mg Atenolol (Tenormin) 25 mg PO BID [facility] Last Admin: 06/05/18 17:15 Dose: 25 mg Atorvastatin Calcium (Lipitor) 20 mg PO DIN [facility] Last Admin: 06/05/18 16:54 Dose: 20 mg Digoxin (Lanoxin) 0.25 mg PO 1400 [facility] Last Admin: 06/05/18 14:56 Dose: 0.25 mg Enoxaparin Sodium (Lovenox) 60 mg SC Q12H [facility]; Protocol Last Admin: 05/19/18 21:00 Dose: Not Given Furosemide (Lasix) 20 mg PO DAILY [facility] Last Admin: 06/05/18 17:35 Dose: Not Given Mirtazapine (Remeron) 15 mg PO HS [facility] Last Admin: 06/05/18 21:03 Dose: Not Given Morphine Sulfate (Morphine) 1 mg IVP Q15M PRN PRN Reason: Pain, moderate (4-7) Ondansetron HCl (Zofran Inj) 4 mg IVP Q6H PRN PRN Reason: Nausea/Vomiting Pantoprazole Sodium (Protonix Ec Tab) 40 mg PO 0600 [facility] Last Admin: 06/06/18 05:25 Dose: Not Given - Labs Labs: 06/05/18 06:20 06/05/18 06:20 PT 13.5 SECONDS (9.4-12.5) H 06/04/18 05:40 INR 1.17 06/04/18 05:40 APTT 30.8 Seconds (25.1-36.5) 06/04/18 05:40 - Constitutional Appears: Chronically Ill - Head Exam Head Exam: NORMAL INSPECTION - Respiratory Exam Respiratory Exam: Decreased Breath Sounds - Cardiovascular Exam Cardiovascular Exam: +S1, +S2 - GI/Abdominal Exam GI & Abdominal Exam: Soft. 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 Watson S/P nausea and vomiting with lactic acidosis, R/O due to meds R/O functional gastrointestinal issue - patient continues to improve clinically - patient without vomiting currently, tolerating some PO intake and patient continues to be awake and alert CAD S/P PCI HTN atrial fibrillation osteoarthritis S/P right knee replacement Plan she already has had 6 weeks of antibiotics (since 04/08/2018) the thrombocytopeniawas probably multifactorial (including meds such as Zyvox and chronic illness - we are continuing to monitor platelet count and Hematology is on-board, patient also has low Hgb and there may be myelosuppression but the platelet count has now normalized) - we previously discussed with Dr. Watson that she is to be monitored off systemic antibiotics since she has no fevers/leukocytosis/signs of systemic infection discussed with Dr. Watson - will await final results of wound cx taken during I and D 2 days ago to see which antibiotics to use will continue to monitor clinically overall prognosis is poor
[2018-06-07] MEDS: Pantoprazole 40 mg EC Tab PO SCH ×2 (06:30→11:06)
--- NOTE | 2018-06-07 09:08 | CP.PCM.PN ---
<Giuseppe Freed - Last Filed: 06/07/18 09:05> Subjective - Date & Time of Evaluation Date of Evaluation: 06/07/18 Time of Evaluation: 09:05 - Subjective Subjective: Podiatry progress note for Dr. Philip 82F was seen POD4 right knee incision and drainage with debridement of the wound. Patient tolerated the procedure well. Patient was resting comfortably in bed, and denies any other acute overnight events. Objective - Vital Signs/Intake and Output Vital Signs (last 24 hours): Temp Pulse Resp BP Pulse Ox 97.5 F L 65 18 145/65 97 06/07/18 06:00 06/07/18 06:00 06/07/18 06:00 06/07/18 06:00 06/07/18 06:00 Intake and Output: 06/07/18 06/07/18 06:59 18:59 Intake Total 480 Output Total 600 Balance -120 - Medications Medications: Current Medications Acetaminophen (Tylenol 325mg Tab) 650 mg PO Q6H PRN PRN Reason: Pain, moderate (4-7) Last Admin: 06/07/18 03:56 Dose: 650 mg Alprazolam (Xanax) 0.25 mg PO DAILY [facility]; Protocol Apixaban (Eliquis) 2.5 mg PO BID [facility]; Protocol Last Admin: 06/06/18 17:54 Dose: 2.5 mg Atenolol (Tenormin) 25 mg PO BID [facility] Last Admin: 06/06/18 17:55 Dose: 25 mg Atorvastatin Calcium (Lipitor) 20 mg PO DIN [facility] Last Admin: 06/06/18 17:54 Dose: 20 mg Digoxin (Lanoxin) 0.25 mg PO 1400 [facility] Last Admin: 06/06/18 17:54 Dose: 0.25 mg Enoxaparin Sodium (Lovenox) 60 mg SC Q12H [facility]; Protocol Last Admin: 05/19/18 21:00 Dose: Not Given Furosemide (Lasix) 20 mg PO DAILY [facility] Last Admin: 06/06/18 11:25 Dose: Not Given Mirtazapine (Remeron) 15 mg PO HS [facility] Last Admin: 06/06/18 21:32 Dose: Not Given Ondansetron HCl (Zofran Inj) 4 mg IVP Q6H PRN PRN Reason: Nausea/Vomiting Oxycodone/Acetaminophen (Percocet 2.5/325 Mg Tab) 1 tab PO DAILY [facility] Pantoprazole Sodium (Protonix Ec Tab) 40 mg PO 0600 [facility] Last Admin: 06/07/18 06:30 Dose: Not Given - Labs Labs: 06/06/18 06:30 06/06/18 06:30 PT 13.5 SECONDS (9.4-12.5) H 06/04/18 05:40 INR 1.17 06/04/18 05:40 APTT 30.8 Seconds (25.1-36.5) 06/04/18 05:40 - Constitutional Appears: Well, Non-toxic, No Acute Distress - Head Exam Head Exam: ATRAUMATIC, NORMOCEPHALIC - Extremities Exam Additional comments: R LE focused exam: Vasc: DP/PT faintly palpable. Cap refill< 3 sec to all digits. Temp gradient warm to warm. minimal edema to right knee. Mild Periwound erythema noted. Neuro: Gross and protective sensations are intact. Derm: A wound measures 10 cm X 3 cm X 0.3 cm with lateral aspect probing to bone. wound base is 30% fibrotic and 70% granular post debridement. no drainage noted. No malodor. Periwound erythema and ecchymosis noted. No clinical signs of infection MSK: Pain on palpating the periwound area. Muscle power around the knee joint couldn't be assessed due to pain and guarding. - Neurological Exam Neurological Exam: Alert, Awake, Oriented x3 - Psychiatric Exam Psychiatric exam: Normal Affect, Normal Mood Assessment and Plan - Assessment and Plan (Free Text) Assessment: 82F with infected right knee wound and osteomyelitis Plan: Patient seen and evaluated at the bedside Discussed with attending Dr. Philip Afebrile, No leukocytosis Wound culture: Pantonea Species Wound cleansed and dressed with xeroform, ABD and tape Multipodus boots in place Right knee x-ray - prosthesis removed, cement spacer in place Continue medical management per medicine and ID team LE venous duplex: No evidence of DVT R knee MRI: OM can't be excluded despite there is no obvious bony erosions Podiatry will continue to follow patient while in house <Thai Philip - Last Filed: 06/07/18 11:43> Objective - Vital Signs/Intake and Output Vital Signs (last 24 hours): Temp Pulse Resp BP Pulse Ox 97.5 F L 65 18 145/65 97 06/07/18 06:00 06/07/18 11:07 06/07/18 06:00 06/07/18 11:07 06/07/18 06:00 Intake and Output: 06/07/18 06/07/18 06:59 18:59 Intake Total 480 Output Total 600 Balance -120 - Medications Medications: Current Medications Acetaminophen (Tylenol 325mg Tab) 650 mg PO Q6H PRN PRN Reason: Pain, moderate (4-7) Last Admin: 06/07/18 03:56 Dose: 650 mg Alprazolam (Xanax) 0.25 mg PO DAILY [facility]; Protocol Apixaban (Eliquis) 2.5 mg PO BID [facility]; Protocol Last Admin: 06/07/18 11:06 Dose: 2.5 mg Atenolol (Tenormin) 25 mg PO BID [facility] Last Admin: 06/07/18 11:07 Dose: 25 mg Atorvastatin Calcium (Lipitor) 20 mg PO DIN [facility] Last Admin: 06/06/18 17:54 Dose: 20 mg Digoxin (Lanoxin) 0.25 mg PO 1400 [facility] Last Admin: 06/06/18 17:54 Dose: 0.25 mg Enoxaparin Sodium (Lovenox) 60 mg SC Q12H [facility]; Protocol Last Admin: 05/19/18 21:00 Dose: Not Given Furosemide (Lasix) 20 mg PO DAILY [facility] Last Admin: 06/06/18 11:25 Dose: Not Given Mirtazapine (Remeron) 15 mg PO HS [facility] Last Admin: 06/06/18 21:32 Dose: Not Given Nystatin (Nystop Topical Powder) 0 gm TOP BID [facility] Last Admin: 06/07/18 11:32 Dose: 1 appl Ondansetron HCl (Zofran Inj) 4 mg IVP Q6H PRN PRN Reason: Nausea/Vomiting Oxycodone/Acetaminophen (Percocet 2.5/325 Mg Tab) 1 tab PO DAILY [facility] Pantoprazole Sodium (Protonix Ec Tab) 40 mg PO 0600 [facility] Last Admin: 06/07/18 11:06 Dose: 40 mg - Labs Labs: 06/06/18 06:30 06/06/18 06:30 PT 13.5 SECONDS (9.4-12.5) H 06/04/18 05:40 INR 1.17 06/04/18 05:40 APTT 30.8 Seconds (25.1-36.5) 06/04/18 05:40 Attending/Attestation - Attestation I have personally seen and examined this patient.: Yes I have fully participated in the care of the patient.: Yes I have reviewed all pertinent clinical information, including history, physical exam and plan: Yes
--- NOTE | 2018-06-07 09:57 | CP.PCM.PN ---
<WillisLizesteban L - Last Filed: 06/07/18 14:11> Subjective - Date & Time of Evaluation Date of Evaluation: 06/07/18 Time of Evaluation: 07:30 - Subjective Subjective: Resident Progress Note for Hospitalist Service Patient examined at bedside. No acute events overnight. Patient is POD#3 s/p right knee debridement. Patient offers no complaints at this time. Denies fevers, chills, chest pain, shortness of breath, abdominal pain. Objective - Vital Signs/Intake and Output Vital Signs (last 24 hours): Temp Pulse Resp BP Pulse Ox 97.5 F L 65 18 145/65 97 06/07/18 06:00 06/07/18 06:00 06/07/18 06:00 06/07/18 06:00 06/07/18 06:00 Intake and Output: 06/07/18 06/07/18 06:59 18:59 Intake Total 480 Output Total 600 Balance -120 - Medications Medications: Current Medications Acetaminophen (Tylenol 325mg Tab) 650 mg PO Q6H PRN PRN Reason: Pain, moderate (4-7) Last Admin: 06/07/18 03:56 Dose: 650 mg Alprazolam (Xanax) 0.25 mg PO DAILY [facility]; Protocol Apixaban (Eliquis) 2.5 mg PO BID [facility]; Protocol Last Admin: 06/06/18 17:54 Dose: 2.5 mg Atenolol (Tenormin) 25 mg PO BID [facility] Last Admin: 06/06/18 17:55 Dose: 25 mg Atorvastatin Calcium (Lipitor) 20 mg PO DIN [facility] Last Admin: 06/06/18 17:54 Dose: 20 mg Digoxin (Lanoxin) 0.25 mg PO 1400 [facility] Last Admin: 06/06/18 17:54 Dose: 0.25 mg Enoxaparin Sodium (Lovenox) 60 mg SC Q12H [facility]; Protocol Last Admin: 05/19/18 21:00 Dose: Not Given Furosemide (Lasix) 20 mg PO DAILY [facility] Last Admin: 06/06/18 11:25 Dose: Not Given Mirtazapine (Remeron) 15 mg PO HS [facility] Last Admin: 06/06/18 21:32 Dose: Not Given Ondansetron HCl (Zofran Inj) 4 mg IVP Q6H PRN PRN Reason: Nausea/Vomiting Oxycodone/Acetaminophen (Percocet 2.5/325 Mg Tab) 1 tab PO DAILY [facility] Pantoprazole Sodium (Protonix Ec Tab) 40 mg PO 0600 [facility] Last Admin: 06/07/18 06:30 Dose: Not Given - Labs Labs: 06/06/18 06:30 06/06/18 06:30 PT 13.5 SECONDS (9.4-12.5) H 06/04/18 05:40 INR 1.17 06/04/18 05:40 APTT 30.8 Seconds (25.1-36.5) 06/04/18 05:40 - Additional Findings Additional findings: - Constitutional Appears: Non-toxic, No Acute Distress, Pallor - Head Exam Head Exam: ATRAUMATIC, NORMOCEPHALIC - Eye Exam Eye Exam: EOMI, Normal appearance - ENT Exam ENT Exam: Mucous Membranes Moist, Normal Exam - Neck Exam Neck Exam: Full ROM, Normal Inspection - Respiratory Exam Respiratory Exam: Clear to Auscultation Bilateral, NORMAL BREATHING PATTERN. absent: Accessory Muscle Use - Cardiovascular Exam Cardiovascular Exam: REGULAR RHYTHM, +S1, +S2 - GI/Abdominal Exam GI & Abdominal Exam: Soft, Normal Bowel Sounds. absent: Distended, Firm, Guarding, Rigid, Tenderness, Organomegaly, Rebound - Extremities Exam Extremities Exam: Normal Capillary Refill. 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 PO intake improving, continuing to taper PPN. PLT count improving, on Eliquis. No sign of bleeding. Advancing diet to advanced bite size. Currently tolerating dysphagia diet. Hyperbaric oxygen therapy trial planned for 05/30. Dr. Oliva and Dr. Watson continue to recommend her 30 day course of hyperbaric therapy, 2 hours each, Argelia-casey Herrera began on 05/30/18 which she tolerated. Per CM, unable to receive HBO if placement in [facility]. I&D in [place] 06/04 with podiatry/ortho. 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 Mi) appreciated -CRP elevated b/c patient is ill; not an accurate assessment of the knee inflammation -superficial wound cx: pantoea sensitive to many abx: giving bactroban, poly mixin, bacitracin ointment -Podiatry consulted. Recs appreciated. Ortho 05/29: At this time, given that patient has a periprosthetic infection involving skin, soft tissues and bone, pt would benefit from local wound debridement and hyperbaric therapy if no medical contraindications. If wound heals and infection eradicated, patient would be a candidate for reimplantation. MRI R knee 05/28 - difficult to exclude Osteo. No obvious bone destruction Doppler LLE - no DVT Per podiatry, as patient is going to a subacute rehab facility, patient is currently not a candidate for Hyperbaric oxygen therapy POD #3 debridement of necrotic skin - prelim micro 06/06 from knee shows gram negative sonido and pseudomonas. Eliquis resumed 06/05 in AM Continue to recommend Rehab Began Lasix 20 mg PO daily for pedal edema - Percocet 2.5 mg to be given one hour before therapy Anemia, Thrombocytopenia- resolved -pt s/p 1 unit prbc, given a dose of erythropoietin -hyperproliferative erythroid response -anemia of chronic disease -iron, b12, folate wnl -began Eliquis 05/26- will continue to monitor thrombocytopenia and increased risk of bleeding -Heme/Onc recs appreciated -medication induced thrombocytopenia; zyvox can cause cytopenias -zyvox dc'd -INR 1.27 -Transfused 1 unit PRBC 05/29 after Hgb dropped to 7.2. -began Eliquis 2.5 mg PO BID 05/26. Held 06/02 08/09 upcoming I&D. Resume 06/05 AM Failure to thrive, dysphagia - improved -PPN has been tapered, but is being supplemented with Ensure. Tolerating diet. -Patient's family refusing PEG feeding at this time -Recent completion of 6 week course of Abx: zyvox and daptomycin discontinued -CT chest: no acute findings -CT head: no acute findings -EGD (04/2018): no esophageal pathology or signs of gastric outlet obstruction -repeat speech/swallow eval (05/23) -COAL PULVERIZING OPERATOR recommends trial puree consistency diet with extra gravy and thin liquids -aspiration/reflux precautions -GI recs appreciated -dysphagia, multifactorial - motility dysfunction, deconditioning -improved mentation and alertness -pt tolerating diet with no issues per nursing -neurology recommendation- no signs of neuromuscular disorder -Palliative recs: Jeannette LEVIN and I met with patients daughter's Isabel and Marii (both POA's). Family aware of mothers medical situation and poor prognosis. Benefits and burdens of feeding tube discussed at length. Daughters refusing PEG tube, in accordance of mother's AD wishes . Hospice services explained in detail. Tone rangel answered. Daughters conflicted, state they are unable to stay home from their jobs in order to care for their mother. Daughter states that mother does not have the finances to pay for 24 hour aide or go to [facility] facility. Atrial fibrillation - Digoxin 0.8 (05/16), Dig 1.4 (06/02) - Atenolol 25 mg PO daily - Holding parameters placed for digoxin and atenol for low HR - Eliquis 2.5 mg BID held 06/02 08/09 pending OR I&D, resumed 06/05 AM CAD - Aspirin held 06/[address] Medrano 08/09 high bleeding risk on Eliquis - Lipitor 20 mg PPx, Diet, Dispostion -DVT ppx: Eliquis, SCDs -Diet: regular -Dispo: patient clinically improving, tolerating po intake Social work: Daughters agreeable to [facility] rehab. updates PT note and ID note faxed to admissions at [facility] Patient's daughters (Nina & Mary) was notified and updated on patient progress and course. Continue to encourage compliance with rehab. Patient seen, case reviewed and plan approved by Dr. Weiss. <Gabbi Weiss - Last Filed: 06/07/18 18:21> Objective - Vital Signs/Intake and Output Vital Signs (last 24 hours): Temp Pulse Resp BP Pulse Ox 97.5 F L 72 18 114/64 97 06/07/18 06:00 06/07/18 17:46 06/07/18 06:00 06/07/18 17:46 06/07/18 06:00 Intake and Output: 06/07/18 06/07/18 06:59 18:59 Intake Total 480 Output Total 600 Balance -120 - Medications Medications: Current Medications Acetaminophen (Tylenol 325mg Tab) 650 mg PO Q6H PRN PRN Reason: Pain, moderate (4-7) Last Admin: 06/07/18 03:56 Dose: 650 mg Alprazolam (Xanax) 0.25 mg PO DAILY [facility]; Protocol Apixaban (Eliquis) 2.5 mg PO BID [facility]; Protocol Last Admin: 06/07/18 17:49 Dose: 2.5 mg Atenolol (Tenormin) 25 mg PO BID [facility] Last Admin: 06/07/18 17:46 Dose: 25 mg Atorvastatin Calcium (Lipitor) 20 mg PO DIN [facility] Last Admin: 06/07/18 17:49 Dose: 20 mg Digoxin (Lanoxin) 0.25 mg PO 1400 [facility] Last Admin: 06/07/18 15:06 Dose: 0.25 mg Enoxaparin Sodium (Lovenox) 60 mg SC Q12H [facility]; Protocol Last Admin: 05/19/18 21:00 Dose: Not Given Furosemide (Lasix) 20 mg PO DAILY [facility] Last Admin: 06/07/18 10:51 Dose: Not Given Mirtazapine (Remeron) 15 mg PO HS [facility] Last Admin: 06/06/18 21:32 Dose: Not Given Nystatin (Nystop Topical Powder) 0 gm TOP BID [facility] Last Admin: 06/07/18 17:49 Dose: 1 appl Ondansetron HCl (Zofran Inj) 4 mg IVP Q6H PRN PRN Reason: Nausea/Vomiting Oxycodone/Acetaminophen (Percocet 2.5/325 Mg Tab) 1 tab PO DAILY [facility] Pantoprazole Sodium (Protonix Ec Tab) 40 mg PO 0600 [facility] Last Admin: 06/07/18 11:06 Dose: 40 mg - Labs Labs: 06/06/18 06:30 06/06/18 06:30 PT 13.5 SECONDS (9.4-12.5) H 06/04/18 05:40 INR 1.17 06/04/18 05:40 APTT 30.8 Seconds (25.1-36.5) 06/04/18 05:40 Attending/Attestation - Attestation I have personally seen and examined this patient.: Yes I have fully participated in the care of the patient.: Yes I have reviewed all pertinent clinical information, including history, physical exam and plan: Yes Notes (Text): 06/07/18 18:19 Medical record note made by the resident after discussion with my direction and input after the patient was personally seen and examined by me. I have reviewed the chart and agree that the record accurately reflects by personal performance of the history, physical exam, data review, and medical decision-making, in the course for the patient. I have also personally directed the plan of care. 82 year old female with past medical history of AF, CAD, hypertension, right TKA, complicated by VRE with prosthesis removal who presented with intractable vomiting and failure to thrive. Patient VRE was treated with Zyvox which was complicated by Pancytopenia . Pancytopenia is resolved. She was initially having dysphagia which is resolved and currently she is sumi ating food Patient was started on hyperbaric oxygen therapy on 05/30/18. Patient is SP day #3 debridement of necrotic skin prelim micro 06/06 from knee shows gram negative sonido and pseudomonas.ID is following , Leg edema, likely due to diastolic CHF, Patient is started on lasix 20 mg po daily after discussion with Patient vacuum tester cans . Case management is working on disposition as patient need hyperbaric treatment as per and Podiatry. Patient is DNR/DNI. Management plan was discussed in detail with patient. Education was provided.
[2018-06-07] MEDS: Nystatin 100,000 Units/gm Topical Pow(15 gm) TOP SCH ×2 (11:32→17:49)
--- NOTE | 2018-06-07 12:28 | PN ---
DATE: 06/07/2018 SUBJECTIVE: The patient is seen earlier this morning. No fevers. No chills. No nausea. PHYSICAL EXAMINATION: VITAL SIGNS: Temperature 97, blood pressure 140/60, respiratory rate 18, heart rate 65. HEENT: Examination of HEENT is unremarkable. NECK: Supple. LUNGS: Decreased breath sounds. HEART: Normal S1, S2. ABDOMEN: Soft, nontender. No organomegaly. No rebound or guarding. No masses. LABORATORY DATA: Laboratory examination reveals a white count of 9.3, hemoglobin of 9 and platelets of 274. Chemistries are noted and microbiology reveals the patient had Pseudomonas Aeruginosa from the repeat culture relatively sensitive organism and another Pseudomonas. Review of orders reveals the patient to be off antibiotics. 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 At this time awaiting for further nutritional support and we will follow with you and discuss with PMD. Review of orders reveals the patient is currently off antibiotic. Dominick Simeon MD
[2018-06-07] MEDS: Digoxin 250 mcg (0.25 mg) Tab PO SCH (15:06)
--- NOTE | 2018-06-07 17:26 | PN ---
DATE: 06/07/2018 FOLLOWUP NOTE SUBJECTIVE: She is comfortable in bed, in no acute distress. No fevers . Hemoglobin hematocrit stable. Has not required blood transfusion in few days. Denies any complaints. PHYSICAL EXAMINATION: GENERAL: Comfortable in bed, in no acute distress. VITAL SIGNS: Temperature 97.8, blood pressure 130/60, respiratory rate 15 per minute, heart rate is 60 per minute. HEENT: Pallor positive. NECK: No lymphadenopathy. CHEST: Air entry present and equal, bilateral. No added sound. CARDIOVASCULAR: S1, S2 normal. No murmur, no gallop. ABDOMEN: Soft, nontender. No hepatosplenomegaly. EXTREMITY: Dressing. LABORATORY DATA: White count 9.3, hemoglobin 9, platelet count of 274. Chemistries are normal. Microbiology: Pseudomonas Aeruginosa from the repeat culture. MEDICATIONS: Reviewed. ASSESSMENT: 1. Right knee prosthesis infection. 2. Chronic anemia. 3. Status post debridement. PLAN: Her hemoglobin and hematocrit are stable. There is no requirement of transfusion. Thrombocytopenia resolved. She is currently on antibiotic as per ID. She is currently not mobile. She is on Eliquis 2.5 mg p.o. b.i.d. for anticoagulation. We will recommend continuing that. Antibiotics as per ID. Pain control with current medications. Platelet count normal. Thank you Dr. Weiss for allowing us to participate in Ms. Segura's care. Brianna Pritchard MD
[2018-06-08 06:51] LABS: BASO # 0.07 K/mm3 (0.0-2.0); BASO % 0.9 % (0.0-3.0); EOS # 0.3 (0.0-0.7); EOS % 3.2 % (1.5-5.0); GRAN # 5.57 (1.4-6.5); GRAN % 67.9 % (50.0-68.0); HEMOGLOBIN 9.5 g/dL (12.0-16.0); LYMPH # 1.4 (1.2-3.4); LYMPH % 17.4 % (22.0-35.0); MEAN CELL VOLUME 89.4 fl (80.0-105.0); MEAN CORPUSCULAR HEMOGLOBIN 27.9 pg (25.0-35.0); MEAN CORPUSCULAR HGB CONC 31.3 g/dl (31.0-37.0); MEAN PLATELET VOLUME 10.2 fl (7.0-11.0); MONO # 0.9 (0.1-0.6); MONO % 10.6 % (1.0-6.0); RBC 3.4 10^6/uL (3.5-6.1); RED CELL DISTRIBUTION WIDTH 18.1 % (11.5-14.5); WHITE BLOOD COUNT 8.2 10^3/uL (4.5-11.0)
[2018-06-08 07:21] LABS: ALB/GLOB RATIO 0.8 (1.1-1.8); ALBUMIN 2.5 g/dL (3.0-4.8); ALT/SGPT 31 U/L (7-56); AST/SGOT 22 U/L (14-36); BLOOD UREA NITROGEN 9 mg/dL (7-21); CALCIUM 8.1 mg/dL (8.4-10.5); GFR NON-AFRICAN AMERICAN > 60
[2018-06-08] MEDS: Nystatin 100,000 Units/gm Topical Pow(15 gm) TOP SCH ×2 (10:17→18:20)
[2018-06-08] MEDS: Pantoprazole 40 mg EC Tab PO SCH (11:28)
--- NOTE | 2018-06-08 11:43 | PN ---
DATE: 06/08/2018 SUBJECTIVE: She is comfortable in bed, in no acute distress. GC improved markedly. Hemoglobin and hematocrit has been stable. Denies any pain. Still not ambulating. REVIEW OF SYSTEMS: As per HPI. Rest of 12-point review of systems reviewed, negative. PHYSICAL EXAMINATION GENERAL: Comfortable in bed, in no acute distress. VITAL SIGNS: Temperature 98, heart rate is 75 per minute, blood pressure 136/60, respiratory rate 20 per minute, and oxygen saturation 98% on room air. HEENT: Pallor positive. NECK: No lymphadenopathy. CHEST: Air entry present and equal, bilateral. No added sound. CARDIOVASCULAR: S1, S2 normal. No murmur, no gallop. ABDOMEN: Soft, nontender. No hepatosplenomegaly. EXTREMITY: 1+ edema. LABORATORY DATA: White count 8.2, hemoglobin 9.5, hematocrit 30.4, platelets 251. Sodium 133, potassium 4.4, creatinine 0.4. MEDICATIONS: Reviewed. ASSESSMENT: 1. Chronic anemia. 2. Right knee prosthesis infection. 3. Atrial fibrillation. 4. Coronary artery disease. PLAN: She is currently on Eliquis for anticoagulation, we will continue with that. General condition improved. Chronic anemia, has not required blood transfusion in past few days. For prosthesis infection, being followed by ID. She is hemodynamically stable. Brianna Macho, MD [facility]
[2018-06-08] MEDS ORDERED: oxyCODONE 5 mg Immediate Release Tab PO STA (13:19)
[2018-06-08] MEDS: Digoxin 250 mcg (0.25 mg) Tab PO SCH (14:28)
--- NOTE | 2018-06-08 14:34 | CP.PCM.PN ---
<Praveen Oliveros - Last Filed: 06/08/18 14:21> Subjective - Date & Time of Evaluation Date of Evaluation: 06/08/18 Time of Evaluation: 09:15 - Subjective Subjective: Praveen Patient seen and examined at bedside. No acute events overnight. Patient is POD#4 s/p right knee debridement. Patient's only complaint at this time is fatigue. Denies fevers, chills, chest pain, shortness of breath, abdominal pain. Objective - Vital Signs/Intake and Output Vital Signs (last 24 hours): Temp Pulse Resp BP Pulse Ox 97.6 F 70 18 136/59 L 98 06/08/18 07:00 06/08/18 11:24 06/08/18 07:00 06/08/18 11:28 06/08/18 07:00 Intake and Output: 06/08/18 06/08/18 06:59 18:59 Intake Total 620 Output Total 620 Balance 0 - Medications Medications: Current Medications Acetaminophen (Tylenol 325mg Tab) 650 mg PO Q6H PRN PRN Reason: Pain, moderate (4-7) Last Admin: 06/08/18 08:24 Dose: 650 mg Alprazolam (Xanax) 0.25 mg PO DAILY [facility]; Protocol Apixaban (Eliquis) 2.5 mg PO BID [facility]; Protocol Last Admin: 06/08/18 11:24 Dose: 2.5 mg Atenolol (Tenormin) 25 mg PO BID [facility] Last Admin: 06/08/18 11:24 Dose: 25 mg Atorvastatin Calcium (Lipitor) 20 mg PO DIN [facility] Last Admin: 06/07/18 17:49 Dose: 20 mg Digoxin (Lanoxin) 0.25 mg PO 1400 [facility] Last Admin: 06/07/18 15:06 Dose: 0.25 mg Enoxaparin Sodium (Lovenox) 60 mg SC Q12H [facility]; Protocol Last Admin: 05/19/18 21:00 Dose: Not Given Furosemide (Lasix) 20 mg PO DAILY [facility] Last Admin: 06/08/18 11:28 Dose: 20 mg Mirtazapine (Remeron) 15 mg PO HS [facility] Last Admin: 06/07/18 21:06 Dose: Not Given Nystatin (Nystop Topical Powder) 0 gm TOP BID [facility] Last Admin: 12/02/18 10:17 Dose: 1 appl Ondansetron HCl (Zofran Inj) 4 mg IVP Q6H PRN PRN Reason: Nausea/Vomiting Oxycodone/Acetaminophen (Percocet 2.5/325 Mg Tab) 1 tab PO DAILY [facility] Pantoprazole Sodium (Protonix Ec Tab) 40 mg PO 0600 [facility] Last Admin: 06/08/18 11:28 Dose: 40 mg - Labs Labs: 06/08/18 06:30 06/08/18 06:30 PT 13.5 SECONDS (9.4-12.5) H 06/04/18 05:40 INR 1.17 06/04/18 05:40 APTT 30.8 Seconds (25.1-36.5) 06/04/18 05:40 - Additional Findings Additional findings: - Constitutional Appears: Non-toxic, No Acute Distress, Pallor - Head Exam Head Exam: ATRAUMATIC, NORMOCEPHALIC - Eye Exam Eye Exam: EOMI, Normal appearance - ENT Exam ENT Exam: Mucous Membranes Moist, Normal Exam - Neck Exam Neck Exam: Full ROM, Normal Inspection - Respiratory Exam Respiratory Exam: Clear to Auscultation Bilateral, NORMAL BREATHING PATTERN. absent: Accessory Muscle Use - Cardiovascular Exam Cardiovascular Exam: REGULAR RHYTHM, +S1, +S2 - GI/Abdominal Exam GI & Abdominal Exam: Soft, Normal Bowel Sounds. absent: Distended, Firm, Guarding, Rigid, Tenderness, Organomegaly, Rebound - Extremities Exam Extremities Exam: Normal Capillary Refill. 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 PO intake improving, continuing to taper PPN. PLT count improving, on Eliquis. No sign of bleeding. Advancing diet to advanced bite size. Currently tolerating dysphagia diet. Hyperbaric oxygen therapy trial planned for 05/30. Dr. Oliva and Dr. Watson continue to recommend her 30 day course of hyperbaric therapy, 2 hours each, M-F, [place] began on 05/30/18 which she tolerated. Per CM, unable to receive HBO if placement in [facility]. I&D in OR 06/04 with podiatry/ortho. Wound cultures growing Pseudomonas. 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 Mi) appreciated -CRP elevated b/c patient is ill; not an accurate assessment of the knee inflammation -superficial wound cx: pantoea sensitive to many abx: giving bactroban, polymixin, bacitracin ointment -Podiatry consulted. Recs appreciated. Ortho 05/29: At this time, given that patient has a periprosthetic infection involving skin, soft tissues and bone, pt would benefit from local wound debridement and hyperbaric therapy if no medical contraindications. If wound heals and infection eradicated, patient would be a candidate for reimplantation. MRI R knee 05/28 - difficult to exclude Osteo. No obvious bone destruction. Pain controlled. 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 Patient has refused for few days. Reviewed with patient need to take pill to cut down on lower extremity swelling, especially in light of recent surgery - Pseudomonas growing from final wound culture. F/u ID recs per ortho/podiatry plan for any possible further investigation of R knee Anemia, Thrombocytopenia- resolved -pt s/p 1 unit prbc, given a dose of erythropoietin -hyperproliferative erythroid response -anemia of chronic disease -iron, b12, folate wnl -began Eliquis 05/26- will continue to monitor thrombocytopenia and increased risk of bleeding -Heme/Onc recs appreciated -medication induced thrombocytopenia; zyvox can cause cytopenias -zyvox dc'd -INR 1.27 -Transfused 1 unit PRBC 05/29 after Hgb dropped to 7.2. -began Eliquis 2.5 mg PO BID 05/26. Held 06/02 08/09 upcoming I&D. Resume 06/05 AM Failure to thrive, dysphagia - improved -PPN has been tapered, but is being supplemented with Ensure. Tolerating diet. -Patient's family refusing PEG feeding at this time -Recent completion of 6 week course of Abx: zyvox and daptomycin discontinued -CT chest: no acute findings -CT head: no acute findings -EGD (04/2018): no esophageal pathology or signs of gastric outlet obstruction -repeat speech/swallow eval (05/23) -[facility] ARCHITECT recommends trial puree consistency diet with extra gravy and thin liquids -aspiration/reflux precautions -GI recs appreciated -dysphagia, multifactorial - motility dysfunction, deconditioning -improved mentation and alertness -pt tolerating diet with no issues per nursing -neurology recommendation- no signs of neuromuscular disorder -Palliative recs: Jeannette LEVIN and I met with patients daughter's Isabel and Marii (both POA's). Family aware of mothers medical situation and poor prognosis. Benefits and burdens of feeding tube discussed at length. Daughters refusing PEG tube, in accordance of mother's AD wishes . Hospice services explained in detail. Questions answered. Daughters conflicted, state they are unable to stay home fro m their jobs in order to care for their mother. Daughter states that mother does not have the finances to pay for 24 hour aide or go to NH facility. Atrial fibrillation - Digoxin 0.8 (05/16), Dig 1.4 (06/02) - Atenolol 25 mg PO daily - Holding parameters placed for digoxin and atenol for low HR - Eliquis 2.5 mg BID held 06/02 08/09 pending OR I&D, resumed 06/05 AM CAD - Aspirin held 06/[address] Medrano 08/09 high bleeding risk on Eliquis - Lipitor 20 mg PPx, Diet, Dispostion -DVT ppx: Eliquis, SCDs -Diet: regular -Dispo: patient clinically improving, tolerating po intake Social work: Daughters agreeable to [facility] rehab. updates PT note and ID note faxed to admissions at [facility] Patient's daughters (Nina & Holli) were notified and updated on patient progress and course. Continue to encourage compliance with rehab. Percocet 2.5 mg to be given one hour before therapy to encourage participation. Low dose to avoid increased fatigue Patient seen, case reviewed and plan approved by Dr. Weiss. Praveen Oliveros, PGY-1 <Gabbi Weiss - Last Filed: 06/08/18 14:48> Objective - Vital Signs/Intake and Output Vital Signs (last 24 hours): Temp Pulse Resp BP Pulse Ox 97.6 F 70 18 136/59 L 98 06/08/18 07:00 06/08/18 11:24 06/08/18 07:00 06/08/18 11:28 06/08/18 07:00 Intake and Output: 06/08/18 06/08/18 06:59 18:59 Intake Total 620 Output Total 620 Balance 0 - Medications Medications: Current Medications Acetaminophen (Tylenol 325mg Tab) 650 mg PO Q6H PRN PRN Reason: Pain, moderate (4-7) Last Admin: 06/08/18 08:24 Dose: 650 mg Alprazolam (Xanax) 0.25 mg PO DAILY [facility]; Protocol Apixaban (Eliquis) 2.5 mg PO BID [facility]; Protocol Last Admin: 06/08/18 11:24 Dose: 2.5 mg Atenolol (Tenormin) 25 mg PO BID [facility] Last Admin: 06/08/18 11:24 Dose: 25 mg Atorvastatin Calcium (Lipitor) 20 mg PO DIN [facility] Last Admin: 06/07/18 17:49 Dose: 20 mg Digoxin (Lanoxin) 0.25 mg PO 1400 [facility] Last Admin: 06/08/18 14:28 Dose: Not Given Enoxaparin Sodium (Lovenox) 60 mg SC Q12H [facility]; Protocol Last Admin: 05/19/18 21:00 Dose: Not Given Furosemide (Lasix) 20 mg PO DAILY [facility] Last Admin: 06/08/18 11:28 Dose: 20 mg Mirtazapine (Remeron) 15 mg PO HS [facility] Last Admin: 06/07/18 21:06 Dose: Not Given Nystatin (Nystop Topical Powder) 0 gm TOP BID [facility] Last Admin: 06/08/18 10:17 Dose: 1 appl Ondansetron HCl (Zofran Inj) 4 mg IVP Q6H PRN PRN Reason: Nausea/Vomiting Oxycodone/Acetaminophen (Percocet 2.5/325 Mg Tab) 1 tab PO DAILY [facility] Pantoprazole Sodium (Protonix Ec Tab) 40 mg PO 0600 [facility] Last Admin: 06/08/18 11:28 Dose: 40 mg - Labs Labs: 06/08/18 06:30 06/08/18 06:30 PT 13.5 SECONDS (9.4-12.5) H 06/04/18 05:40 INR 1.17 06/04/18 05:40 APTT 30.8 Seconds (25.1-36.5) 06/04/18 05:40 Attending/Attestation - Attestation I have personally seen and examined this patient.: Yes I have fully participated in the care of the patient.: Yes I have reviewed all pertinent clinical information, including history, physical exam and plan: Yes Notes (Text): 06/08/18 14:45 Medical record note made by the resident after discussion with my direction and input after the patient was personally seen and examined by me. I have reviewed the chart and agree that the record accurately reflects by personal performance of the history, physical exam, data review, and medical decision-making, in the course for the patient. I have also personally directed the plan of care. 82 year old female with past medical history of AF, CAD, hypertension, right TKA, complicated by VRE with prosthesis removal who presented with intractable vomiting and failure to thrive. Patient VRE was treated with Zyvox which was complicated by Pancytopenia . Pancytopenia is resolved.She was initially having dysphagia which is resolved and currently she is tolerating food Patient was started on hyperbaric oxygen therapy on 05/30/18. Patient is SP day #4 debridement of necrotic skin prelim micro 06/06 from knee shows gram negative sonido and pseudomonas.Case was discussed with ID.At this time ID is holding off any antibiotics.ID will discuss with ortho before staring ant antibiotics. 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 AF, rate is controlled.Patient is on anticoagulation with Apixiban. Case management is working on disposition as patient need hyperbaric treatment as per and Podiatry. Patient is DNR/DNI. Management plan was discussed in detail with patient. Education was provided.
--- NOTE | 2018-06-08 15:02 | CP.PCM.PN ---
<Giuseppe Freed - Last Filed: 06/08/18 14:59> Subjective - Date & Time of Evaluation Date of Evaluation: 06/08/18 Time of Evaluation: 14:59 - Subjective Subjective: Podiatry progress note for Dr. Oliva 82F POD5 right knee incision and drainage with debridement of the wound. Resting comfortably. States she is eating and voiding without pain or discomfort. Denies acute events overnight, has no pedal complaints, denies N/V/F/C/SOB/CP. Objective - Vital Signs/Intake and Output Vital Signs (last 24 hours): Temp Pulse Resp BP Pulse Ox 97.6 F 70 18 136/59 L 98 06/08/18 07:00 06/08/18 11:24 06/08/18 07:00 06/08/18 11:28 06/08/18 07:00 Intake and Output: 06/08/18 06/08/18 06:59 18:59 Intake Total 620 Output Total 620 Balance 0 - Medications Medications: Current Medications Acetaminophen (Tylenol 325mg Tab) 650 mg PO Q6H PRN PRN Reason: Pain, moderate (4-7) Last Admin: 06/08/18 08:24 Dose: 650 mg Alprazolam (Xanax) 0.25 mg PO DAILY [facility]; Protocol Apixaban (Eliquis) 2.5 mg PO BID [facility]; Protocol Last Admin: 06/08/18 11:24 Dose: 2.5 mg Atenolol (Tenormin) 25 mg PO BID [facility] Last Admin: 06/08/18 11:24 Dose: 25 mg Atorvastatin Calcium (Lipitor) 20 mg PO DIN [facility] Last Admin: 06/07/18 17:49 Dose: 20 mg Digoxin (Lanoxin) 0.25 mg PO 1400 [facility] Last Admin: 06/08/18 14:28 Dose: Not Given Enoxaparin Sodium (Lovenox) 60 mg SC Q12H [facility]; Protocol Last Admin: 05/19/18 21:00 Dose: Not Given Furosemide (Lasix) 20 mg PO DAILY [facility] Last Admin: 06/08/18 11:28 Dose: 20 mg Mirtazapine (Remeron) 15 mg PO HS [facility] Last Admin: 06/07/18 21:06 Dose: Not Given Nystatin (Nystop Topical Powder) 0 gm TOP BID [facility] Last Admin: 06/08/18 10:17 Dose: 1 appl Ondansetron HCl (Zofran Inj) 4 mg IVP Q6H PRN PRN Reason: Nausea/Vomiting Oxycodone/Acetaminophen (Percocet 2.5/325 Mg Tab) 1 tab PO DAILY [facility] Pantoprazole Sodium (Protonix Ec Tab) 40 mg PO 0600 [facility] Last Admin: 06/08/18 11:28 Dose: 40 mg - Labs Labs: 06/08/18 06:30 06/08/18 06:30 PT 13.5 SECONDS (9.4-12.5) H 06/04/18 05:40 INR 1.17 06/04/18 05:40 APTT 30.8 Seconds (25.1-36.5) 06/04/18 05:40 - Constitutional Appears: Well, Non-toxic, No Acute Distress - Head Exam Head Exam: ATRAUMATIC, NORMOCEPHALIC - Extremities Exam Additional comments: R LE focused exam: Vasc: DP/PT faintly palpable. Cap refill< 3 sec to all digits. Temp gradient warm to warm. minimal edema to right knee. Mild Periwound erythema noted. Neuro: Gross and protective sensations are intact. Derm: A wound measures 10 cm X 3 cm X 0.3 cm with lateral aspect probing to bone. wound base is 20% fibrotic and 80% granular post debridement - improving. no drainage noted. No malodor. Periwound erythema and ecchymosis noted. No clinical signs of infection MSK: Pain on palpating the periwound area. Muscle power around the knee joint couldn't be assessed due to pain and guarding. - Neurological Exam Neurological Exam: Alert, Awake, Oriented x3 - Psychiatric Exam Psychiatric exam: Normal Affect, Normal Mood Assessment and Plan - Assessment and Plan (Free Text) Assessment: 82F POD 8 incision and drainage of infected right knee wound and osteomyelitis Plan: Patient seen and evaluated at the bedside Discussed with attending Dr. Oliva Afebrile, No leukocytosis Wound culture: Pantonea Species Wound cleansed and dressed with xeroform, ABD, DSD, and SHANEKA Multipodus boots in place Right knee x-ray - prosthesis removed, cement spacer in place Continue medical management per medicine and ID team LE venous duplex: No evidence of DVT R knee MRI: OM can't be excluded despite there is no obvious bony erosions Podiatry will continue to follow patient while in house <Kristen Oliva - Last Filed: 06/13/18 15:19> Objective - Vital Signs/Intake and Output Vital Signs (last 24 hours): Temp Pulse Resp BP Pulse Ox 97.6 F 60 18 117/65 98 06/13/18 14:00 06/13/18 14:00 06/13/18 14:00 06/13/18 14:00 06/13/18 14:00 Intake and Output: 06/13/18 06/13/18 06:59 18:59 Intake Total 720 450 Output Total 600 Balance 120 450 - Medications Medications: Current Medications Acetaminophen (Tylenol 325mg Tab) 650 mg PO Q6H PRN PRN Reason: Pain, moderate (4-7) Last Admin: 06/12/18 22:02 Dose: 650 mg Alprazolam (Xanax) 0.25 mg PO DAILY [facility]; Protocol PRN Reason: BEFORE HBO Last Admin: 06/13/18 11:03 Dose: 0.25 mg Apixaban (Eliquis) 2.5 mg PO BID [facility]; Protocol Last Admin: 06/13/18 09:04 Dose: 2.5 mg Atenolol (Tenormin) 25 mg PO BID [facility] Last Admin: 06/13/18 09:04 Dose: 25 mg Atorvastatin Calcium (Lipitor) 20 mg PO DIN [facility] Last Admin: 06/12/18 17:18 Dose: 20 mg Digoxin (Lanoxin) 0.25 mg PO 1400 [facility] Last Admin: 06/12/18 14:19 Dose: 0.25 mg Enoxaparin Sodium (Lovenox) 60 mg SC Q12H [facility]; Protocol Last Admin: 05/19/18 21:00 Dose: Not Given Furosemide (Lasix) 20 mg PO DAILY [facility] Last Admin: 06/13/18 09:04 Dose: 20 mg Meropenem (Merrem Iv 1 Gm Premix) 1 gm in 50 mls @ 100 mls/hr IVPB Q8 [facility]; Protocol Stop: 06/17/18 22:01 Last Admin: 06/13/18 05:21 Dose: 100 mls/hr Mirtazapine (Remeron) 15 mg PO HS [facility] Last Admin: 06/12/18 22:01 Dose: Not Given Nystatin (Nystop Topical Powder) 0 gm TOP BID [facility] Last Admin: 06/13/18 11:04 Dose: 1 appl Ondansetron HCl (Zofran Inj) 4 mg IVP Q6H PRN PRN Reason: Nausea/Vomiting Oxycodone/Acetaminophen (Percocet 2.5/325 Mg Tab) 1 tab PO DAILY PRN PRN Reason: Pain, moderate (4-7) Last Admin: 06/13/18 11:03 Dose: 1 tab Pantoprazole Sodium (Protonix Ec Tab) 40 mg PO 0600 [facility] Last Admin: 06/13/18 05:21 Dose: 40 mg Vitamin A (Vitamin A & D Oint Ud Foilpak) 1 ea TOP DAILY PRN PRN Reason: Dry skin - Labs Labs: 06/13/18 06:45 06/13/18 06:45 PT 13.5 SECONDS (9.4-12.5) H 06/04/18 05:40 INR 1.17 06/04/18 05:40 APTT 30.8 Seconds (25.1-36.5) 06/04/18 05:40 Attending/Attestation - Attestation I have personally seen and examined this patient.: Yes I have fully participated in the care of the patient.: Yes I have reviewed all pertinent clinical information, including history, physical exam and plan: Yes
[2018-06-08] MEDS: Meropenem IV 1 gm in NS 1 GM/50 ML BAG IVPB SCH (21:43)
--- NOTE | 2018-06-08 22:01 | PN ---
DATE: 06/08/2018 SUBJECTIVE: The patient is in bed, no acute distress, nontoxic. PHYSICAL EXAMINATION: VITAL SIGNS: Temperature is 97, blood pressure is 130/50, respiratory rate of 18, heart rate of 58. HEENT: Examination of HEENT is unremarkable. NECK: Supple. LUNGS: Have decreased breath sounds. HEART: Normal S1, S2. ABDOMEN: Emanation is soft, nontender. LABORATORY DATA: Laboratory examination reveals a white count of 8, hemoglobin of 9. Chemistries are noted. Urinalysis is noted, and microbiology reveals there is Pseudomonas from the cultures from 06/04/2018, relatively sensitive Pseudomonas. THE PATIENT IS ALLERGIC TO PENICILLIN. ASSESSMENT AND PLAN: An 82-year-old female with a right knee prosthetic knee infection and infected hematoma with a vancomycin-resistant enterococcus, was treated with Zyvox, had debridement and removal and placement of an antibiotic spacer, has received 6 weeks of antibiotics and now has pseudomonas from the wound culture from the knee from 06/04/2018, which is a operating room culture obtained by Dr. Hernan Watson. We will start the patient empirically on meropenem. The patient is tolerating her medications well. We will follow with you. We will discuss with Dr. Watson the goal of therapy. Dominick Simeon MD
[2018-06-09] MEDS: Pantoprazole 40 mg EC Tab PO SCH (05:33)
[2018-06-09] MEDS: Meropenem IV 1 gm in NS 1 GM/50 ML BAG IVPB SCH ×3 (05:33→21:12)
--- NOTE | 2018-06-09 09:08 | CP.PCM.PN ---
<Praveen Oliveros - Last Filed: 06/09/18 14:58> Subjective - Date & Time of Evaluation Date of Evaluation: 06/09/18 Time of Evaluation: 07:37 - Subjective Subjective: Praveen Oliveros PGY-1 Progress Note for Hospitalist Service Patient seen and examined at bedside. No acute events overnight. Patient is POD#5 s/p right knee debridement. Patient reports a good night sleep. Discussed prophylactic pain medication low dose before therapy. Denies fevers, chills, chest pain, shortness of breath, abdominal pain. Objective - Vital Signs/Intake and Output Vital Signs (last 24 hours): Temp Pulse Resp BP Pulse Ox 98.2 F 68 18 131/71 98 06/09/18 06:00 06/09/18 06:00 06/09/18 06:00 06/09/18 06:00 06/09/18 06:00 Intake and Output: 06/09/18 06/09/18 06:59 18:59 Intake Total 250 Output Total 300 Balance -50 - Medications Medications: Current Medications Acetaminophen (Tylenol 325mg Tab) 650 mg PO Q6H PRN PRN Reason: Pain, moderate (4-7) Last Admin: 06/08/18 08:24 Dose: 650 mg Alprazolam (Xanax) 0.25 mg PO DAILY [facility]; Protocol Apixaban (Eliquis) 2.5 mg PO BID [facility]; Protocol Last Admin: 06/08/18 18:20 Dose: 2.5 mg Atenolol (Tenormin) 25 mg PO BID [facility] Last Admin: 06/08/18 18:20 Dose: Not Given Atorvastatin Calcium (Lipitor) 20 mg PO DIN [facility] Last Admin: 06/08/18 18:20 Dose: 20 mg Digoxin (Lanoxin) 0.25 mg PO 1400 [facility] Last Admin: 06/08/18 14:28 Dose: Not Given Enoxaparin Sodium (Lovenox) 60 mg SC Q12H [facility]; Protocol Last Admin: 05/19/18 21:00 Dose: Not Given Furosemide (Lasix) 20 mg PO DAILY [facility] Last Admin: 06/08/18 11:28 Dose: 20 mg Meropenem (Merrem Iv 1 Gm Premix) 1 gm in 50 mls @ 100 mls/hr IVPB Q8 [facility]; Protocol Stop: 06/17/18 22:01 Last Admin: 06/09/18 05:33 Dose: 100 mls/hr Mirtazapine (Remeron) 15 mg PO HS [facility] Last Admin: 06/09/18 02:25 Dose: Not Given Nystatin (Nystop Topical Powder) 0 gm TOP BID [facility] Last Admin: 06/08/18 18:20 Dose: 1 appl Ondansetron HCl (Zofran Inj) 4 mg IVP Q6H PRN PRN Reason: Nausea/Vomiting Oxycodone/Acetaminophen (Percocet 2.5/325 Mg Tab) 1 tab PO DAILY [facility] Pantoprazole Sodium (Protonix Ec Tab) 40 mg PO 0600 [facility] Last Admin: 06/09/18 05:33 Dose: 40 mg - Labs Labs: 06/08/18 06:30 06/08/18 06:30 PT 13.5 SECONDS (9.4-12.5) H 06/04/18 05:40 INR 1.17 06/04/18 05:40 APTT 30.8 Seconds (25.1-36.5) 06/04/18 05:40 - Additional Findings Additional findings: - Constitutional Appears: Non-toxic, No Acute Distress, Pallor - Head Exam Head Exam: ATRAUMATIC, NORMOCEPHALIC - Eye Exam Eye Exam: EOMI, Normal appearance - ENT Exam ENT Exam: Mucous Membranes Moist, Normal Exam - Neck Exam Neck Exam: Full ROM, Normal Inspection - Respiratory Exam Respiratory Exam: Clear to Auscultation Bilateral, NORMAL BREATHING PATTERN. absent: Accessory Muscle Use - Cardiovascular Exam Cardiovascular Exam: REGULAR RHYTHM, +S1, +S2 - GI/Abdominal Exam GI & Abdominal Exam: Soft, Normal Bowel Sounds. absent: Distended, Firm, Guarding, Rigid, Tenderness, Organomegaly, Rebound - Extremities Exam Extremities Exam: Normal Capillary Refill. 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 PO intake improving, continuing to taper PPN. PLT count improving, on Eliquis. No sign of bleeding. Advancing diet to advanced bite size. Currently tolerating dysphagia diet. Hyperbaric oxygen therapy trial planned for 05/30. Dr. Oliva and Dr. Watson continue to recommend her 30 day course of hyperbaric therapy, 2 hours each, M-F, whch began on 05/30/18 which she tolerated. Per CM, unable to receive HBO if placement in [facility]. I&D in OR 06/04 with podiatry/ortho. Wound cultures growing Pseudomonas, on Merrem day 2. 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 Mi) appreciated -CRP elevated b/c patient is ill; not an accurate assessment of the knee inflammation -superficial wound cx: pantoea sensitive to many abx: giving bactroban, polymixin, bacitracin ointment -Podiatry consulted. Recs appreciated. Ortho 05/29: At this time, given that patient has a periprosthetic infection involving skin, soft tissues and bone, pt would benefit from local wound arnie ridement and hyperbaric therapy if no medical contraindications. If wound heals and infection eradicated, patient would be a candidate for reimplantation. MRI R knee 05/28 - difficult to exclude Osteo. No obvious bone destruction. Pain controlled. Doppler LLE - no DVT POD #5 debridement of necrotic skin Eliquis resumed 06/05 in AM Continue to recommend Rehab Began Lasix 20 mg PO daily for Leg edema, likely due to diastolic CHF after discussion with Patient caustic preparer . Patient accepted pill yesterday but has refused for few prior days. Reviewed with patient need to take pill to cut down on lower extremity swelling, especially in light of recent surgery - Pseudomonas growing from final wound culture. ID has begun course of Merrem, which began night of 12 Anemia, Thrombocytopenia- resolved -pt s/p 1 unit prbc, given a dose of erythropoietin -hyperproliferative erythroid response -anemia of chronic disease -iron, b12, folate wnl -began Eliquis 11/19- will continue to monitor thrombocytopenia and increased risk of bleeding -Heme/Onc recs appreciated -medication induced thrombocytopenia; zyvox can cause cytopenias -zyvox dc'd -INR 1.27 -Transfused 1 unit PRBC 05/29 after Hgb dropped to 7.2. -began Eliquis 2.5 mg PO BID 05/26. Held 06/02 08/09 upcoming I&D. Resume 06/05 AM Failure to thrive, dysphagia - improved -PPN has been tapered, but is being supplemented with Ensure. Tolerating diet. -Patient's family refusing PEG feeding at this time -Recent completion of 6 week course of Abx: zyvox and daptomycin discontinued -CT chest: no acute findings -CT head: no acute findings -EGD (04/2018): no esophageal pathology or signs of gastric outlet obstruction -repeat speech/swallow eval (05/23) -CASTING TECHNICIAN recommends trial puree consistency diet with extra gravy and thin liquids -aspiration/reflux precautions -GI recs appreciated -dysphagia, multifactorial - motility dysfunction, deconditioning -improved mentation and alertness -pt tolerating diet with no issues per nursing -neurology recommendation- no signs of neuromuscular disorder -Palliative recs: Jeannette LEVIN and I met with patients daughter's Isabel and Marii (both POA's). Family aware of mothers medical situation and poor prognosis. Benefits and burdens of feeding tube discussed at length. Daughters refusing PEG tube, in accordance of mother's AD wishes . Hospice services explained in detail. Questions answered. Daughters conflicted, state they are unable to stay home from their jobs in order to care for their mother. Daughter states that mother does not have the finances to pay for 24 hour aide or go to NH facility. Atrial fibrillation - Digoxin 0.8 (05/16), Dig 1.4 (06/02) - Atenolol 25 mg PO daily - Holding parameters placed for digoxin and atenol for low HR - Eliquis 2.5 mg BID held 06/02 08/09 pending OR I&D, resumed 06/05 AM CAD - Aspirin held 06/[address] Medrano 08/09 high bleeding risk on Eliquis - Lipitor 20 mg PPx, Diet, Dispostion -DVT ppx: Eliquis, SCDs -Diet: regular -Dispo: patient clinically improving, tolerating po intake Social work: sw reviewed 4 [facility] facilities in [facility] that are interested. sw asked them to tour and provide sw with their choices by saturday or saturday. sw also reviewed [facility] and what it means. sw advised that in order to find a facility in [facility] that will accept patient this document needs to be completed. sw inquired about mom's finances, income and assets, to complete the PAS. Continue to encourage compliance with rehab. Percocet 2.5 mg to be given one hour before therapy to encourage participation. Low dose to avoid somnolence Patient seen, case reviewed and plan approved by Dr. Hernandez. Praveen Oliveros, PGY-1 <Jay Hernandez - Last Filed: 06/09/18 15:09> Objective - Vital Signs/Intake and Output Vital Signs (last 24 hours): Temp Pulse Resp BP Pulse Ox 98 F 69 18 131/67 100 06/09/18 14:00 06/09/18 14:00 06/09/18 14:00 06/09/18 14:00 06/09/18 14:00 Intake and Output: 06/09/18 06/09/18 06:59 18:59 Intake Total 250 Output Total 300 Balance -50 - Medications Medications: Current Medications Acetaminophen (Tylenol 325mg Tab) 650 mg PO Q6H PRN PRN Reason: Pain, moderate (4-7) Last Admin: 06/09/18 10:55 Dose: 650 mg Alprazolam (Xanax) 0.25 mg PO DAILY [facility]; Protocol Apixaban (Eliquis) 2.5 mg PO BID [facility]; Protocol Last Admin: 06/09/18 09:19 Dose: 2.5 mg Atenolol (Tenormin) 25 mg PO BID [facility] Last Admin: 06/09/18 09:19 Dose: 25 mg Atorvastatin Calcium (Lipitor) 20 mg PO DIN [facility] Last Admin: 06/08/18 18:20 Dose: 20 mg Digoxin (Lanoxin) 0.25 mg PO 1400 [facility] Last Admin: 06/09/18 13:08 Dose: 0.25 mg Enoxaparin Sodium (Lovenox) 60 mg SC Q12H [facility]; Protocol Last Admin: 05/19/18 21:00 Dose: Not Given Furosemide (Lasix) 20 mg PO DAILY [facility] Last Admin: 06/09/18 09:19 Dose: 20 mg Meropenem (Merrem Iv 1 Gm Premix) 1 gm in 50 mls @ 100 mls/hr IVPB Q8 [facility]; Protocol Stop: 06/17/18 22:01 Last Admin: 06/09/18 13:07 Dose: 100 mls/hr Mirtazapine (Remeron) 15 mg PO HS [facility] Last Admin: 06/09/18 02:25 Dose: Not Given Nystatin (Nystop Topical Powder) 0 gm TOP BID [facility] Last Admin: 06/09/18 09:20 Dose: 1 appl Ondansetron HCl (Zofran Inj) 4 mg IVP Q6H PRN PRN Reason: Nausea/Vomiting Oxycodone HCl (Oxycodone Immediate Release Tab) 2.5 mg PO DAILY [facility] Last Admin: 06/09/18 13:10 Dose: Not Given Pantoprazole Sodium (Protonix Ec Tab) 40 mg PO 0600 [facility] Last Admin: 06/09/18 05:33 Dose: 40 mg - Labs Labs: 06/08/18 06:30 06/08/18 06:30 PT 13.5 SECONDS (9.4-12.5) H 06/04/18 05:40 INR 1.17 06/04/18 05:40 APTT 30.8 Seconds (25.1-36.5) 06/04/18 05:40 Attending/Attestation - Attestation I have personally seen and examined this patient.: Yes I have fully participated in the care of the patient.: Yes I have reviewed all pertinent clinical information, including history, physical exam and plan: Yes Notes (Text): 06/09/18 15:05 82 year old female with past medical history of afib previously on coumadin, CAD, hypertension, right TKA, complicated by VRE with prosthesis removal who presented with intractable vomiting and failure to thrive. This has resolved and patient is currently tolerating meals. ID, podiatry and orthopedics are following as well. Patient has completed 6 weeks course of antibiotics. MRI knee was reviewed and patient was started on hyperbaric therapy. She is s/p debridement of necrotic skin POD #5. Monitor h/h closely while patient is on eliquis for afib. Thrombocytopenia has resolved. She was started on po lasix for leg edema likely secondary to diastolic CHF. manager switch / school social worker are currently working of disposition to [facility]. Patient is DNR/DNI. Jay Hernandez MD Hospitalist.
[2018-06-09] MEDS: Nystatin 100,000 Units/gm Topical Pow(15 gm) TOP SCH ×2 (09:20→20:06)
[2018-06-09] MEDS ORDERED: Oxycodone/Acetaminophen 2.5/325 mg Tab PO SCH (10:00)
--- NOTE | 2018-06-09 10:17 | CP.PCM.PN ---
<Brown Jeronimo - Last Filed: 06/09/18 16:10> Subjective - Date & Time of Evaluation Date of Evaluation: 06/09/18 Time of Evaluation: 10:17 - Subjective Subjective: Podiatry progress note for Dr. Oliva 82 F patient 6 days S/P right knee incision and drainage with debridement of R knee infected wound and osteomyelitis. Patient was seen after her HBO session. Patient was Resting comfortably and NAD. She states she is having mild pain at her surgical site as of now. She denies any acute events overnight, She denies any pedal complaints, She denies N/V/F/C/SOB/CP. Objective - Vital Signs/Intake and Output Vital Signs (last 24 hours): Temp Pulse Resp BP Pulse Ox 98.2 F 68 18 131/71 98 06/09/18 06:00 06/09/18 09:19 06/09/18 06:00 06/09/18 09:19 06/09/18 06:00 Intake and Output: 06/09/18 06/09/18 06:59 18:59 Intake Total 250 Output Total 300 Balance -50 - Medications Medications: Current Medications Acetaminophen (Tylenol 325mg Tab) 650 mg PO Q6H PRN PRN Reason: Pain, moderate (4-7) Last Admin: 06/08/18 08:24 Dose: 650 mg Alprazolam (Xanax) 0.25 mg PO DAILY [facility]; Protocol Apixaban (Eliquis) 2.5 mg PO BID [facility]; Protocol Last Admin: 06/09/18 09:19 Dose: 2.5 mg Atenolol (Tenormin) 25 mg PO BID [facility] Last Admin: 06/09/18 09:19 Dose: 25 mg Atorvastatin Calcium (Lipitor) 20 mg PO DIN [facility] Last Admin: 06/08/18 18:20 Dose: 20 mg Digoxin (Lanoxin) 0.25 mg PO 1400 [facility] Last Admin: 06/08/18 14:28 Dose: Not Given Enoxaparin Sodium (Lovenox) 60 mg SC Q12H [facility]; Protocol Last Admin: 05/19/18 21:00 Dose: Not Given Furosemide (Lasix) 20 mg PO DAILY [facility] Last Admin: 06/09/18 09:19 Dose: 20 mg Meropenem (Merrem Iv 1 Gm Premix) 1 gm in 50 mls @ 100 mls/hr IVPB Q8 [facility]; Protocol Stop: 06/17/18 22:01 Last Admin: 06/09/18 05:33 Dose: 100 mls/hr Mirtazapine (Remeron) 15 mg PO HS [facility] Last Admin: 06/09/18 02:25 Dose: Not Given Nystatin (Nystop Topical Powder) 0 gm TOP BID [facility] Last Admin: 06/09/18 09:20 Dose: 1 appl Ondansetron HCl (Zofran Inj) 4 mg IVP Q6H PRN PRN Reason: Nausea/Vomiting Oxycodone HCl (Oxycodone Immediate Release Tab) 2.5 mg PO DAILY [facility] Pantoprazole Sodium (Protonix Ec Tab) 40 mg PO 0600 [facility] Last Admin: 06/09/18 05:33 Dose: 40 mg - Labs Labs: 06/08/18 06:30 06/08/18 06:30 PT 13.5 SECONDS (9.4-12.5) H 06/04/18 05:40 INR 1.17 06/04/18 05:40 APTT 30.8 Seconds (25.1-36.5) 06/04/18 05:40 - Constitutional Appears: Well, Non-toxic, No Acute Distress - Head Exam Head Exam: ATRAUMATIC, NORMOCEPHALIC - Extremities Exam Additional comments: R LE focused exam: Vasc: DP/PT faintly palpable. Cap refill< 3 sec to all digits. Temp gradient warm to warm. minimal edema to right knee. Mild Periwound erythema noted. Neuro: Gross and protective sensations are intact. Derm: A wound measures 12.5 cm X 4.5 cm X 0.5 cm with lateral aspect probing to bone. wound base is 20% fibrotic and 80% granular post debridement - improving. no drainage noted. No malodor. Periwound erythema and ecchymosis noted. No cli nical signs of infection MSK: Pain on palpating the periwound area. Muscle power around the knee joint couldn't be assessed due to pain and guarding. - Neurological Exam Neurological Exam: Alert, Oriented x3 - Psychiatric Exam Psychiatric exam: Normal Affect, Normal Mood Assessment and Plan - Assessment and Plan (Free Text) Assessment: 82 F patient 6 days S/P right knee incision and drainage with debridement of R knee infected wound and osteomyelitis Plan: Patient seen and evaluated at the bedside with Dr. Oliva Discussed plan with attending Dr. Oliva Charts, labs and vitals reviewed; Afebrile, No leukocytosis Wound culture: Pantonea Species Wound cleansed and dressed with xeroform, ABD, DSD, and SHANEKA Continue Multipodus boots while in bed Right knee x-ray - prosthesis removed, cement spacer in place Continue medical management per medicine and ID team LE venous duplex: No evidence of DVT R knee MRI (05/28): OM can't be excluded despite there is no obvious bony erosions Podiatry will continue to follow up the patient while in house <Kristen Oliva - Last Filed: 06/13/18 15:14> Objective - Vital Signs/Intake and Output Vital Signs (last 24 hours): Temp Pulse Resp BP Pulse Ox 97.6 F 60 18 117/65 98 06/13/18 14:00 06/13/18 14:00 06/13/18 14:00 06/13/18 14:00 06/13/18 14:00 Intake and Output: 06/13/18 06/13/18 06:59 18:59 Intake Total 720 450 Output Total 600 Balance 120 450 - Medications Medications: Current Medications Acetaminophen (Tylenol 325mg Tab) 650 mg PO Q6H PRN PRN Reason: Pain, moderate (4-7) Last Admin: 06/12/18 22:02 Dose: 650 mg Alprazolam (Xanax) 0.25 mg PO DAILY [facility]; Protocol PRN Reason: BEFORE HBO Last Admin: 06/13/18 11:03 Dose: 0.25 mg Apixaban (Eliquis) 2.5 mg PO BID [facility]; Protocol Last Admin: 06/13/18 09:04 Dose: 2.5 mg Atenolol (Tenormin) 25 mg PO BID [facility] Last Admin: 06/13/18 09:04 Dose: 25 mg Atorvastatin Calcium (Lipitor) 20 mg PO DIN [facility] Last Admin: 06/12/18 17:18 Dose: 20 mg Digoxin (Lanoxin) 0.25 mg PO 1400 [facility] Last Admin: 06/12/18 14:19 Dose: 0.25 mg Enoxaparin Sodium (Lovenox) 60 mg SC Q12H [facility]; Protocol Last Admin: 05/19/18 21:00 Dose: Not Given Furosemide (Lasix) 20 mg PO DAILY [facility] Last Admin: 06/13/18 09:04 Dose: 20 mg Meropenem (Merrem Iv 1 Gm Premix) 1 gm in 50 mls @ 100 mls/hr IVPB Q8 [facility]; Protocol Stop: 06/17/18 22:01 Last Admin: 06/13/18 05:21 Dose: 100 mls/hr Mirtazapine (Remeron) 15 mg PO HS [facility] Last Admin: 06/12/18 22:01 Dose: Not Given Nystatin (Nystop Topical Powder) 0 gm TOP BID [facility] Last Admin: 06/13/18 11:04 Dose: 1 appl Ondansetron HCl (Zofran Inj) 4 mg IVP Q6H PRN PRN Reason: Nausea/Vomiting Oxycodone/Acetaminophen (Percocet 2.5/325 Mg Tab) 1 tab PO DAILY PRN PRN Reason: Pain, moderate (4-7) Last Admin: 06/13/18 11:03 Dose: 1 tab Pantoprazole Sodium (Protonix Ec Tab) 40 mg PO 0600 [facility] Last Admin: 06/13/18 05:21 Dose: 40 mg Vitamin A (Vitamin A & D Oint Ud Foilpak) 1 ea TOP DAILY PRN PRN Reason: Dry skin - Labs Labs: 06/13/18 06:45 06/13/18 06:45 PT 13.5 SECONDS (9.4-12.5) H 06/04/18 05:40 INR 1.17 06/04/18 05:40 APTT 30.8 Seconds (25.1-36.5) 06/04/18 05:40 Attending/Attestation - Attestation I have personally seen and examined this patient.: Yes I have fully participated in the care of the patient.: Yes I have reviewed all pertinent clinical information, including history, physical exam and plan: Yes
[2018-06-09] MEDS: Digoxin 250 mcg (0.25 mg) Tab PO SCH (13:08)
[2018-06-09] MEDS: oxyCODONE 5 mg Immediate Release Tab PO SCH (13:10)
--- NOTE | 2018-06-09 21:23 | CP.PCM.PN ---
Subjective - Date & Time of Evaluation Date of Evaluation: 06/09/18 Time of Evaluation: 08:40 - Subjective Subjective: Patient seen this morning, no fevers, eating her breakfast ok, no nausea, no diarrhea, no increase in right knee pain. Objective - Vital Signs/Intake and Output Vital Signs (last 24 hours): Temp Pulse Resp BP Pulse Ox 97.6 F 61 18 122/54 L 98 06/08/18 23:23 06/08/18 23:23 06/08/18 23:23 06/08/18 23:23 06/08/18 23:23 Intake and Output: 06/08/18 06/09/18 18:59 06:59 Intake Total 250 Output Total 300 Balance -50 - Medications Medications: Current Medications Acetaminophen (Tylenol 325mg Tab) 650 mg PO Q6H PRN PRN Reason: Pain, moderate (4-7) Last Admin: 06/08/18 08:24 Dose: 650 mg Alprazolam (Xanax) 0.25 mg PO DAILY [facility]; Protocol Apixaban (Eliquis) 2.5 mg PO BID [facility]; Protocol Last Admin: 06/08/18 18:20 Dose: 2.5 mg Atenolol (Tenormin) 25 mg PO BID [facility] Last Admin: 06/08/18 18:20 Dose: Not Given Atorvastatin Calcium (Lipitor) 20 mg PO DIN [facility] Last Admin: 06/08/18 18:20 Dose: 20 mg Digoxin (Lanoxin) 0.25 mg PO 1400 [facility] Last Admin: 06/08/18 14:28 Dose: Not Given Enoxaparin Sodium (Lovenox) 60 mg SC Q12H [facility]; Protocol Last Admin: 05/19/18 21:00 Dose: Not Given Furosemide (Lasix) 20 mg PO DAILY [facility] Last Admin: 06/08/18 11:28 Dose: 20 mg Meropenem (Merrem Iv 1 Gm Premix) 1 gm in 50 mls @ 100 mls/hr IVPB Q8 [facility]; Protocol Stop: 06/17/18 22:01 Last Admin: 06/09/18 05:33 Dose: 100 mls/hr Mirtazapine (Remeron) 15 mg PO HS [facility] Last Admin: 06/09/18 02:25 Dose: Not Given Nystatin (Nystop Topical Powder) 0 gm TOP BID [facility] Last Admin: 06/08/18 18:20 Dose: 1 appl Ondansetron HCl (Zofran Inj) 4 mg IVP Q6H PRN PRN Reason: Nausea/Vomiting Oxycodone/Acetaminophen (Percocet 2.5/325 Mg Tab) 1 tab PO DAILY [facility] Pantoprazole Sodium (Protonix Ec Tab) 40 mg PO 0600 [facility] Last Admin: 06/09/18 05:33 Dose: 40 mg - Labs Labs: 06/08/18 06:30 06/08/18 06:30 PT 13.5 SECONDS (9.4-12.5) H 06/04/18 05:40 INR 1.17 06/04/18 05:40 APTT 30.8 Seconds (25.1-36.5) 06/04/18 05:40 - Constitutional Appears: No Acute Distress, Chronically Ill - Head Exam Head Exam: NORMAL INSPECTION - Respiratory Exam Respiratory Exam: Decreased Breath Sounds - Cardiovascular Exam Cardiovascular Exam: +S1, +S2 - GI/Abdominal Exam GI & Abdominal Exam: Soft. 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 Watson, growing Pseudomonas S/P nausea and vomiting with lactic acidosis, R/O due to meds R/O functional gastrointestinal issue - patient continues to improve clinically - patient without vomiting currently, tolerating some PO intake and patient continues to be awake and alert CAD S/P PCI HTN atrial fibrillation osteoarthritis S/P right knee replacement Plan she already has had 6 weeks of antibiotics (since 04/08/2018) for VRE the thrombocytopenia was probably multifactorial (including meds such as Zyvox and chronic illness - we are continuing to monitor platelet count and Hematology is on-board, patient also has low Hgb and there may be myelosuppression but the platelet count has now normalized) - discussed with Dr. Watson previously and patient has been started on Merrem and will monitor clinically overall prognosis is poor
[2018-06-10] MEDS: Pantoprazole 40 mg EC Tab PO SCH (05:01)
[2018-06-10] MEDS: Meropenem IV 1 gm in NS 1 GM/50 ML BAG IVPB SCH ×3 (05:01→21:16)
[2018-06-10 07:00] LABS: BASO # 0.04 K/mm3 (0.0-2.0); BASO % 0.5 % (0.0-3.0); EOS # 0.2 (0.0-0.7); EOS % 2.8 % (1.5-5.0); GRAN # 5.8 (1.4-6.5); GRAN % 71.3 % (50.0-68.0); HEMOGLOBIN 9.4 g/dL (12.0-16.0); LYMPH # 1.5 (1.2-3.4); LYMPH % 18.6 % (22.0-35.0); MEAN CELL VOLUME 88.8 fl (80.0-105.0); MEAN CORPUSCULAR HEMOGLOBIN 27.8 pg (25.0-35.0); MEAN CORPUSCULAR HGB CONC 31.3 g/dl (31.0-37.0); MEAN PLATELET VOLUME 10.4 fl (7.0-11.0); MONO # 0.6 (0.1-0.6); MONO % 6.8 % (1.0-6.0); RBC 3.38 10^6/uL (3.5-6.1); RED CELL DISTRIBUTION WIDTH 18.1 % (11.5-14.5); WHITE BLOOD COUNT 8.1 10^3/uL (4.5-11.0)
[2018-06-10 08:16] LABS: ALB/GLOB RATIO 0.8 (1.1-1.8); ALBUMIN 2.4 g/dL (3.0-4.8); ALT/SGPT 23 U/L (7-56); AST/SGOT 23 U/L (14-36); BLOOD UREA NITROGEN 7 mg/dL (7-21); CALCIUM 8.2 mg/dL (8.4-10.5); GFR NON-AFRICAN AMERICAN > 60
--- NOTE | 2018-06-10 09:27 | PQF ---
PROVIDER RESPONSE TEXT: chronic REVIEWER QUERY TEXT: CHF Acuity and Type Congestive Heart Failure is documented in the Medical Record. Please document the type and acuity (in cludes probable or suspected) Such as: Type: -- Systolic -- Diastolic -- Combined -- Other, please specify Acuity: -- Acute -- Chronic -- Acute on chronic -- Other, please specify Also please document the underlying cause of the CHF (includes probable or suspected) The patient's Clinical Indicators include: 06/09 documentation of diastolic CHF requires clarification as to ACUITY. Please include in your notes Query created by: Garima Ramirez on 06/10/2018 9:18 AM Electronically signed by: Jay Hernandez MD 06/10/2018 9:23 AM
[2018-06-10] MEDS ORDERED: Vitamins A & D Oint UD Foilpak TOP PRN (10:25)
[2018-06-10] MEDS: Nystatin 100,000 Units/gm Topical Pow(15 gm) TOP SCH ×2 (10:46→18:02)
--- NOTE | 2018-06-10 11:40 | CP.PCM.PN ---
<Brown Jeronimo - Last Filed: 06/10/18 17:13> Subjective - Date & Time of Evaluation Date of Evaluation: 06/10/18 Time of Evaluation: 11:39 - Subjective Subjective: Podiatry progress note for Dr. Philip 82 F patient 7 days S/P right knee incision and drainage with debridement of R knee infected wound and osteomyelitis. Patient was seen after her HBO session. Patient was Resting comfortably and NAD. She states she is having mild pain at her surgical site as of now. She denies any acute events overnight, She denies any pedal complaints, She denies N/V/F/C/SOB/CP. Objective - Vital Signs/Intake and Output Vital Signs (last 24 hours): Temp Pulse Resp BP Pulse Ox 97.8 F 70 18 116/62 97 06/10/18 07:00 06/10/18 09:36 06/10/18 07:00 06/10/18 09:36 06/10/18 07:00 Intake and Output: 06/10/18 06/10/18 06:59 18:59 Intake Total 240 Balance 240 - Medications Medications: Current Medications Acetaminophen (Tylenol 325mg Tab) 650 mg PO Q6H PRN PRN Reason: Pain, moderate (4-7) Last Admin: 06/09/18 10:55 Dose: 650 mg Alprazolam (Xanax) 0.25 mg PO DAILY [facility]; Protocol Apixaban (Eliquis) 2.5 mg PO BID [facility]; Protocol Last Admin: 06/10/18 09:36 Dose: 2.5 mg Atenolol (Tenormin) 25 mg PO BID [facility] Last Admin: 06/10/18 09:36 Dose: 25 mg Atorvastatin Calcium (Lipitor) 20 mg PO DIN [facility] Last Admin: 06/09/18 19:01 Dose: 20 mg Digoxin (Lanoxin) 0.25 mg PO 1400 [facility] Last Admin: 06/09/18 13:08 Dose: 0.25 mg Enoxaparin Sodium (Lovenox) 60 mg SC Q12H [facility]; Protocol Last Admin: 05/19/18 21:00 Dose: Not Given Furosemide (Lasix) 20 mg PO DAILY [facility] Last Admin: 06/10/18 09:36 Dose: 20 mg Meropenem (Merrem Iv 1 Gm Premix) 1 gm in 50 mls @ 100 mls/hr IVPB Q8 [facility]; Protocol Stop: 06/17/18 22:01 Last Admin: 06/10/18 05:01 Dose: 100 mls/hr Mirtazapine (Remeron) 15 mg PO HS [facility] Last Admin: 06/10/18 05:04 Dose: Not Given Nystatin (Nystop Topical Powder) 0 gm TOP BID [facility] Last Admin: 06/09/18 20:06 Dose: Not Given Ondansetron HCl (Zofran Inj) 4 mg IVP Q6H PRN PRN Reason: Nausea/Vomiting Oxycodone HCl (Oxycodone Immediate Release Tab) 2.5 mg PO DAILY [facility] Last Admin: 06/09/18 13:10 Dose: Not Given Pantoprazole Sodium (Protonix Ec Tab) 40 mg PO 0600 [facility] Last Admin: 06/10/18 05:01 Dose: 40 mg Vitamin A (Vitamin A & D Oint Ud Foilpak) 1 ea TOP DAILY PRN PRN Reason: Dry skin - Labs Labs: 06/10/18 06:30 06/10/18 06:30 PT 13.5 SECONDS (9.4-12.5) H 06/04/18 05:40 INR 1.17 06/04/18 05:40 APTT 30.8 Seconds (25.1-36.5) 06/04/18 05:40 - Constitutional Appears: Well, Non-toxic, No Acute Distress - Head Exam Head Exam: ATRAUMATIC, NORMOCEPHALIC - Extremities Exam Additional comments: R LE focused exam: Vasc: DP/PT faintly palpable. Cap refill< 3 sec to all digits. Temp gradient warm to warm. minimal edema to right knee. Mild Periwound erythema noted. Neuro: Gross and protective sensations are intact. Derm: A wound measures 12.5 cm X 4.5 cm X 0.5 cm with lateral aspect probing to bone. wound base is 20% fibrotic and 80% granular post debridement - improving. no drainage noted. No malodor. Periwound erythema and ecchymosis noted. No clinical signs of infection MSK: Pain on palpating the periwound area. Muscle power around the knee joint couldn't be assessed due to pain and guarding. - Neurological Exam Neurological Exam: Alert, Awake, Oriented x3 - Psychiatric Exam Psychiatric exam: Normal Affect Assessment and Plan - Assessment and Plan (Free Text) Assessment: 82 F patient 7 days S/P right knee incision and drainage with debridement of R knee infected wound and osteomyelitis Plan: Patient seen and evaluated at the bedside with Dr. Philip Discussed plan with attending Dr. Philip Charts, labs and vitals reviewed; Afebrile, No leukocytosis Wound culture: Pantonea Species Wound cleansed and dressed with xeroform, ABD, DSD, and SHANEKA Continue Multipodus boots while in bed Right knee x-ray - prosthesis removed, cement spacer in place Continue medical management per medicine and ID team LE venous duplex: No evidence of DVT R knee MRI (05/28): OM can't be excluded despite there is no obvious bony erosions Podiatry will continue to follow up the patient while in house <Thai Philip - Last Filed: 06/11/18 07:43> Objective - Vital Signs/Intake and Output Vital Signs (last 24 hours): Temp Pulse Resp BP Pulse Ox 97.5 F L 62 18 128/78 96 06/11/18 06:00 06/11/18 06:00 06/11/18 06:00 06/11/18 06:00 06/11/18 06:00 Intake and Output: 06/11/18 06/11/18 06:59 18:59 Intake Total 660 Output Total 800 Balance -140 - Medications Medications: Current Medications Acetaminophen (Tylenol 325mg Tab) 650 mg PO Q6H PRN PRN Reason: Pain, moderate (4-7) Last Admin: 06/09/18 10:55 Dose: 650 mg Alprazolam (Xanax) 0.25 mg PO DAILY [facility]; Protocol Last Admin: 06/10/18 14:40 Dose: 0.25 mg Apixaban (Eliquis) 2.5 mg PO BID [facility]; Protocol Last Admin: 06/10/18 17:10 Dose: 2.5 mg Atenolol (Tenormin) 25 mg PO BID [facility] Last Admin: 06/10/18 17:10 Dose: 25 mg Atorvastatin Calcium (Lipitor) 20 mg PO DIN [facility] Last Admin: 06/10/18 17:10 Dose: 20 mg Digoxin (Lanoxin) 0.25 mg PO 1400 [facility] Last Admin: 06/10/18 13:41 Dose: 0.25 mg Enoxaparin Sodium (Lovenox) 60 mg SC Q12H [facility]; Protocol Last Admin: 05/19/18 21:00 Dose: Not Given Furosemide (Lasix) 20 mg PO DAILY [facility] Last Admin: 06/10/18 09:36 Dose: 20 mg Meropenem (Merrem Iv 1 Gm Premix) 1 gm in 50 mls @ 100 mls/hr IVPB Q8 [facility]; Protocol Stop: 06/17/18 22:01 Last Admin: 06/11/18 05:21 Dose: 100 mls/hr Mirtazapine (Remeron) 15 mg PO HS [facility] Last Admin: 06/11/18 05:21 Dose: Not Given Nystatin (Nystop Topical Powder) 0 gm TOP BID [facility] Last Admin: 06/10/18 18:02 Dose: 1 appl Ondansetron HCl (Zofran Inj) 4 mg IVP Q6H PRN PRN Reason: Nausea/Vomiting Oxycodone HCl (Oxycodone Immediate Release Tab) 2.5 mg PO DAILY [facility] Last Admin: 06/10/18 13:41 Dose: 2.5 mg Pantoprazole Sodium (Protonix Ec Tab) 40 mg PO 0600 [facility] Last Admin: 06/11/18 05:21 Dose: 40 mg Vitamin A (Vitamin A & D Oint Ud Foilpak) 1 ea TOP DAILY PRN PRN Reason: Dry skin - Labs Labs: 06/10/18 06:30 06/10/18 06:30 PT 13.5 SECONDS (9.4-12.5) H 06/04/18 05:40 INR 1.17 06/04/18 05:40 APTT 30.8 Seconds (25.1-36.5) 06/04/18 05:40 Attending/Attestation - Attestation I have personally seen and examined this patient.: Yes I have fully participated in the care of the patient.: Yes I have reviewed all pertinent clinical information, including history, physical exam and plan: Yes
[2018-06-10] MEDS: oxyCODONE 5 mg Immediate Release Tab PO SCH (13:41)
[2018-06-10] MEDS: Digoxin 250 mcg (0.25 mg) Tab PO SCH (13:41)
--- NOTE | 2018-06-10 13:50 | CP.PCM.PN ---
<Praveen Oliveros - Last Filed: 06/10/18 13:47> Subjective - Date & Time of Evaluation Date of Evaluation: 06/10/18 Time of Evaluation: 08:00 - Subjective Subjective: Praveen Oliveros PGY-1 Progress Note for Hospitalist Service Patient seen and examined at bedside. No acute events overnight. Patient is POD#6 s/p right knee debridement. Patient reports a good night sleep. Discussed prophylactic pain medication low dose before therapy. Denies fevers, chills, chest pain, shortness of breath, abdominal pain. Objective - Vital Signs/Intake and Output Vital Signs (last 24 hours): Temp Pulse Resp BP Pulse Ox 97.8 F 70 18 116/62 97 06/10/18 07:00 06/10/18 09:36 06/10/18 07:00 06/10/18 09:36 06/10/18 07:00 Intake and Output: 06/10/18 06/10/18 06:59 18:59 Intake Total 240 Balance 240 - Medications Medications: Current Medications Acetaminophen (Tylenol 325mg Tab) 650 mg PO Q6H PRN PRN Reason: Pain, moderate (4-7) Last Admin: 06/09/18 10:55 Dose: 650 mg Alprazolam (Xanax) 0.25 mg PO DAILY [facility]; Protocol Apixaban (Eliquis) 2.5 mg PO BID [facility]; Protocol Last Admin: 06/10/18 09:36 Dose: 2.5 mg Atenolol (Tenormin) 25 mg PO BID [facility] Last Admin: 06/10/18 09:36 Dose: 25 mg Atorvastatin Calcium (Lipitor) 20 mg PO DIN [facility] Last Admin: 06/09/18 19:01 Dose: 20 mg Digoxin (Lanoxin) 0.25 mg PO 1400 [facility] Last Admin: 06/10/18 13:41 Dose: 0.25 mg Enoxaparin Sodium (Lovenox) 60 mg SC Q12H [facility]; Protocol Last Admin: 05/19/18 21:00 Dose: Not Given Furosemide (Lasix) 20 mg PO DAILY [facility] Last Admin: 06/10/18 09:36 Dose: 20 mg Meropenem (Merrem Iv 1 Gm Premix) 1 gm in 50 mls @ 100 mls/hr IVPB Q8 [facility]; Protocol Stop: 06/17/18 22:01 Last Admin: 06/10/18 13:42 Dose: 100 mls/hr Mirtazapine (Remeron) 15 mg PO HS [facility] Last Admin: 06/10/18 05:04 Dose: Not Given Nystatin (Nystop Topical Powder) 0 gm TOP BID [facility] Last Admin: 06/10/18 10:46 Dose: 1 appl Ondansetron HCl (Zofran Inj) 4 mg IVP Q6H PRN PRN Reason: Nausea/Vomiting Oxycodone HCl (Oxycodone Immediate Release Tab) 2.5 mg PO DAILY [facility] Last Admin: 06/10/18 13:41 Dose: 2.5 mg Pantoprazole Sodium (Protonix Ec Tab) 40 mg PO 0600 [facility] Last Admin: 06/10/18 05:01 Dose: 40 mg Vitamin A (Vitamin A & D Oint Ud Foilpak) 1 ea TOP DAILY PRN PRN Reason: Dry skin - Labs Labs: 06/10/18 06:30 06/10/18 06:30 PT 13.5 SECONDS (9.4-12.5) H 06/04/18 05:40 INR 1.17 06/04/18 05:40 APTT 30.8 Seconds (25.1-36.5) 06/04/18 05:40 - Additional Findings Additional findings: - Constitutional Appears: Non-toxic, No Acute Distress, Pallor - Head Exam Head Exam: ATRAUMATIC, NORMOCEPHALIC - Eye Exam Eye Exam: EOMI, Normal appearance - ENT Exam ENT Exam: Mucous Membranes Moist, Normal Exam - Neck Exam Neck Exam: Full ROM, Normal Inspection - Respiratory Exam Respiratory Exam: Clear to Auscultation Bilateral, NORMAL BREATHING PATTERN. absent: Accessory Muscle Use - Cardiovascular Exam Cardiovascular Exam: REGULAR RHYTHM, +S1, +S2 - GI/Abdominal Exam GI & Abdominal Exam: Soft, Normal Bowel Sounds. absent: Distended, Firm, Guarding, Rigid, Tenderness, Organomegaly, Rebound - Extremities Exam Extremities Exam: Normal Capillary Refill. absent: Joint Swelling, Pedal Edema Additional comments: right knee immobilizer in place, wrapped in hard cast, mild TTP and edema of distal R foot, SCDs on L calf Significant swelling in R dorsal foot. 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 PO intake improving, continuing to taper PPN. PLT count improving, on Eliquis. No sign of bleeding. Advancing diet to advanced bite size. Currently tolerating dysphagia diet. Hyperbaric oxygen therapy trial planned for 05/30. Dr. Oliva and Dr. Watson continue to recommend her 30 day course of hyperbaric therapy, 2 hours each, M-F, whch began on 05/30/18 which she tolerated. Per CM, unable to receive HBO if placement in [facility]. I&D in [place] 06/04 with podiatry/ortho. Wound cultures growing Pseudomonas, on Merrem day 3. 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 Mi) appreciated -CRP elevated b/c patient is ill; not an accurate assessment of the knee inflammation -superficial wound cx: pantoea sensitive to many abx: giving bactroban, polymixin, bacitracin ointment -Podiatry consulted. Recs appreciated. Ortho 05/29: At this time, given that patient has a periprosthetic infection involving skin, soft tissues and bone, pt would benefit from local wound debridement and hyperbaric therapy if no medical contraindications. If wound heals and infection eradicated, patient would be a candidate for reimplantation. MRI R knee 05/28 - difficult to exclude Osteo. No obvious bone destruction. Pain controlled. Doppler LLE - no DVT POD #6 debridement of necrotic skin Eliquis resumed 06/05 in AM Continue to recommend Rehab Began Lasix 20 mg PO daily for Leg edema, likely due to diastolic CHF after discussion with Patient it consulting director . Patient refused pill yesterday and has refused for few prior days. Reviewed with patient need to take pill to cut down on lower extremity swelling, especially in light of recent surgery - Pseudomonas growing from final wound culture. ID has begun course of Merrem, which began night of 06/08 Anemia, Thrombocytopenia- resolved -pt s/p 1 unit prbc, given a dose of erythropoietin -hyperproliferative erythroid response -anemia of chronic disease -iron, b12, folate wnl -began Eliquis 05/26- will continue to monitor thrombocytopenia and increased risk of bleeding -Heme/Onc recs appreciated -medication induced thrombocytopenia; zyvox can cause cytopenias -zyvox dc'd -INR 1.27 -Transfused 1 unit PRBC 05/29 after Hgb dropped to 7.2. -began Eliquis 2.5 mg PO BID 05/26. Held 06/02 08/09 upcoming I&D. Resume 06/05 AM Failure to thrive, dysphagia - improved -PPN has been tapered, but is being supplemented with Ensure. Tolerating diet. -Patient's family refusing PEG feeding at this time -Recent completion of 6 week course of Abx: zyvox and daptomycin discontinued -CT chest: no acute findings -CT head: no acute findings -EGD (04/2018): no esophageal pathology or signs of gastric outlet obstruction -repeat speech/swallow eval (05/23) -AIR CHIEF MARSHAL recommends trial puree consistency diet with extra gravy and thin liquids -aspiration/reflux precautions -GI recs appreciated -dysphagia, multifactorial - motility dysfunction, deconditioning -improved mentation and alertness -pt tolerating diet with no issues per nursing -neurology recommendation- no signs of neuromuscular disorder -Palliative recs: Jeannette LEVIN and I met with patients daughter's Isabel and Marii (both POA's). Family aware of mothers medical situation and poor prognosis. Benefits and burdens of feeding tube discussed at length. Daughters refusing PEG tube, in accordance of mother's AD wishes . Hospice services explained in detail. Questions answered. Daughters conflicted, state they are unable to stay home from their jobs in order to care for their mother. Daughter states that mother does not have the finances to pay for 24 hour aide or go to [place] facility. Atrial fibrillation - Digoxin 0.8 (05/16), Dig 1.4 (06/02) - Atenolol 25 mg PO daily - Holding parameters placed for digoxin and atenol for low HR - Eliquis 2.5 mg BID held 06/02 08/09 pending OR I&D, resumed 06/05 AM CAD - Aspirin held 06/[address] Medrano 2/ high bleeding risk on Eliquis - Lipitor 20 mg PPx, Diet, Dispostion -DVT ppx: Eliquis, SCDs -Diet: regular -Dispo: patient clinically improving, tolerating po intake Social work: sw reviewed 4 [facility] facilities in [facility] that are interested. sw asked them to tour and provide sw with their choices by saturday or saturday. sw also reviewed [facility]-PAS and what it means. sw advised that in order to find a facility in [facility] that will accept patient this document needs to be completed. sw inquired about mom's finances, income and assets, to complete the PAS. Patient progress discussed with daughter Nina in detail. Continue to encourage compliance with rehab. Percocet 2.5 mg to be given one hour before therapy to encourage participation. Low dose to avoid somnolence. Patient has not been taking Tylenol regularly and patient and daughter reports adverse reaction to oxycodone by itself. Patient seen, case reviewed and plan approved by Dr. Hernandez. Praveen Oliveros, PGY-1 <Jay Hernandez - Last Filed: 06/10/18 15:04> Objective - Vital Signs/Intake and Output Vital Signs (last 24 hours): Temp Pulse Resp BP Pulse Ox 97.8 F 70 18 116/62 97 06/10/18 07:00 06/10/18 09:36 06/10/18 07:00 06/10/18 09:36 06/10/18 07:00 Intake and Output: 06/10/18 06/10/18 06:59 18:59 Intake Total 240 Balance 240 - Medications Medications: Current Medications Acetaminophen (Tylenol 325mg Tab) 650 mg PO Q6H PRN PRN Reason: Pain, moderate (4-7) Last Admin: 06/09/18 10:55 Dose: 650 mg Alprazolam (Xanax) 0.25 mg PO DAILY [facility]; Protocol Apixaban (Eliquis) 2.5 mg PO BID [facility]; Protocol Last Admin: 06/10/18 09:36 Dose: 2.5 mg Atenolol (Tenormin) 25 mg PO BID [facility] Last Admin: 06/10/18 09:36 Dose: 25 mg Atorvastatin Calcium (Lipitor) 20 mg PO DIN [facility] Last Admin: 06/09/18 19:01 Dose: 20 mg Digoxin (Lanoxin) 0.25 mg PO 1400 [facility] Last Admin: 06/10/18 13:41 Dose: 0.25 mg Enoxaparin Sodium (Lovenox) 60 mg SC Q12H [facility]; Protocol Last Admin: 05/19/18 21:00 Dose: Not Given Furosemide (Lasix) 20 mg PO DAILY [facility] Last Admin: 06/10/18 09:36 Dose: 20 mg Meropenem (Merrem Iv 1 Gm Premix) 1 gm in 50 mls @ 100 mls/hr IVPB Q8 [facility]; Protocol Stop: 06/17/18 22:01 Last Admin: 06/10/18 13:42 Dose: 100 mls/hr Mirtazapine (Remeron) 15 mg PO HS [facility] Last Admin: 06/10/18 05:04 Dose: Not Given Nystatin (Nystop Topical Powder) 0 gm TOP BID [facility] Last Admin: 06/10/18 10:46 Dose: 1 appl Ondansetron HCl (Zofran Inj) 4 mg IVP Q6H PRN PRN Reason: Nausea/Vomiting Oxycodone HCl (Oxycodone Immediate Release Tab) 2.5 mg PO DAILY [facility] Last Admin: 06/10/18 13:41 Dose: 2.5 mg Pantoprazole Sodium (Protonix Ec Tab) 40 mg PO 0600 [facility] Last Admin: 06/10/18 05:01 Dose: 40 mg Vitamin A (Vitamin A & D Oint Ud Foilpak) 1 ea TOP DAILY PRN PRN Reason: Dry skin - Labs Labs: 06/10/18 06:30 06/10/18 06:30 PT 13.5 SECONDS (9.4-12.5) H 06/04/18 05:40 INR 1.17 06/04/18 05:40 APTT 30.8 Seconds (25.1-36.5) 06/04/18 05:40 Attending/Attestation - Attestation I have personally seen and examined this patient.: Yes I have fully participated in the care of the patient.: Yes I have reviewed all pertinent clinical information, including history, physical exam and plan: Yes Notes (Text): 06/10/18 15:03 82 year old female with past medical history of afib previously on coumadin, CAD, hypertension, right TKA, complicated by VRE with prosthesis removal who presented with intractable vomiting and failure to thrive. This has resolved and patient is currently tolerating meals. ID, podiatry and orthopedics are following as well. Patient has completed 6 weeks course of antibiotics. MRI knee was reviewed and patient was started on hyperbaric therapy. She is s/p debridement of necrotic skin POD #6. Monitor cbc closely while patient is on eliquis for afib. H/H has been stable. Thrombocytopenia has resolved. She was started on po lasix for leg edema likely secondary to chronic diastolic CHF. architectural practice manager / social science manager are currently working of disposition to [facility] [place]. Patient is DNR/DNI. Jay Hernandez MD Hospitalist.
--- NOTE | 2018-06-10 18:44 | CP.PCM.PN ---
Subjective - Date & Time of Evaluation Date of Evaluation: 06/10/18 Time of Evaluation: 18:42 - Subjective Subjective: Pt awake, alert. Afebrile R knee: with dressing appears clean and dry knee immobilizer in place NVI distally Pt currently on antibiotics for pseudomonas Pt also getting hyperbaric therapy Awaiting authorization for rehab placement Objective - Vital Signs/Intake and Output Vital Signs (last 24 hours): Temp Pulse Resp BP Pulse Ox 98.5 F 64 20 117/56 L 99 06/10/18 14:00 06/10/18 17:10 06/10/18 14:00 06/10/18 17:10 06/10/18 14:00 Intake and Output: 06/10/18 06/10/18 06:59 18:59 Intake Total 240 Balance 240 - Medications Medications: Current Medications Acetaminophen (Tylenol 325mg Tab) 650 mg PO Q6H PRN PRN Reason: Pain, moderate (4-7) Last Admin: 06/09/18 10:55 Dose: 650 mg Alprazolam (Xanax) 0.25 mg PO DAILY [facility]; Protocol Last Admin: 06/10/18 14:40 Dose: 0.25 mg Apixaban (Eliquis) 2.5 mg PO BID [facility]; Protocol Last Admin: 06/10/18 17:10 Dose: 2.5 mg Atenolol (Tenormin) 25 mg PO BID [facility] Last Admin: 06/10/18 17:10 Dose: 25 mg Atorvastatin Calcium (Lipitor) 20 mg PO DIN [facility] Last Admin: 06/10/18 17:10 Dose: 20 mg Digoxin (Lanoxin) 0.25 mg PO 1400 [facility] Last Admin: 06/10/18 13:41 Dose: 0.25 mg Enoxaparin Sodium (Lovenox) 60 mg SC Q12H [facility]; Protocol Last Admin: 05/19/18 21:00 Dose: Not Given Furosemide (Lasix) 20 mg PO DAILY [facility] Last Admin: 06/10/18 09:36 Dose: 20 mg Meropenem (Merrem Iv 1 Gm Premix) 1 gm in 50 mls @ 100 mls/hr IVPB Q8 [facility]; Protocol Stop: 06/17/18 22:01 Last Admin: 06/10/18 13:42 Dose: 100 mls/hr Mirtazapine (Remeron) 15 mg PO HS [facility] Last Admin: 06/10/18 05:04 Dose: Not Given Nystatin (Nystop Topical Powder) 0 gm TOP BID [facility] Last Admin: 06/10/18 10:46 Dose: 1 appl Ondansetron HCl (Zofran Inj) 4 mg IVP Q6H PRN PRN Reason: Nausea/Vomiting Oxycodone HCl (Oxycodone Immediate Release Tab) 2.5 mg PO DAILY [facility] Last Admin: 06/10/18 13:41 Dose: 2.5 mg Pantoprazole Sodium (Protonix Ec Tab) 40 mg PO 0600 [facility] Last Admin: 06/10/18 05:01 Dose: 40 mg Vitamin A (Vitamin A & D Oint Ud Foilpak) 1 ea TOP DAILY PRN PRN Reason: Dry skin - Labs Labs: 06/10/18 06:30 06/10/18 06:30 PT 13.5 SECONDS (9.4-12.5) H 06/04/18 05:40 INR 1.17 06/04/18 05:40 APTT 30.8 Seconds (25.1-36.5) 06/04/18 05:40
--- NOTE | 2018-06-11 02:14 | PN ---
DATE: 06/10/2018 SUBJECTIVE: The patient is in bed, in no acute distress, was seen earlier today. PHYSICAL EXAMINATION: VITAL SIGNS: Temperature is 98, blood pressure is 117/50, respiratory rate 18. HEENT: Unremarkable. NECK: Supple. LUNGS: Decreased breath sounds. HEART: Normal S1, S2. ABDOMEN: Soft and nontender. LABORATORY DATA: Reveals white count is 8.1, hemoglobin of 9. BUN of 7, creatinine of 0.5. Urinalysis is noted. Microbiology is noted and review of orders. ASSESSMENT AND PLAN: This is an 82-year-old female who had right prosthetic knee infection, infected hematoma vancomycin-resistant enterococci, status post debridement, status post removal; placement of an antibiotic spacer; has completed 6 weeks of antibiotics; surgical site knee infection with necrosis, now with pseudomonas and on meropenem day #3. We will continue the present course. Dominick Simeon MD
[2018-06-11] MEDS: Meropenem IV 1 gm in NS 1 GM/50 ML BAG IVPB SCH ×3 (05:21→21:24)
[2018-06-11] MEDS: Pantoprazole 40 mg EC Tab PO SCH (05:21)
[2018-06-11] MEDS: Nystatin 100,000 Units/gm Topical Pow(15 gm) TOP SCH ×2 (09:05→18:19)
[2018-06-11] MEDS: oxyCODONE 5 mg Immediate Release Tab PO SCH (09:59)
--- NOTE | 2018-06-11 12:28 | CP.PCM.PN ---
<Praveen Oliveros - Last Filed: 06/11/18 14:58> Subjective - Date & Time of Evaluation Date of Evaluation: 06/11/18 Time of Evaluation: 07:30 - Subjective Subjective: Praveen Oliveros PGY-1 Progress Note for Hospitalist Service Patient seen and examined at bedside. No acute events overnight. Patient is POD#7 s/p right knee debridement. Patient reports a good night sleep. Discussed need to use water pill for patient. Denies fevers, chills, chest pain, shortness of breath, abdominal pain. Objective - Vital Signs/Intake and Output Vital Signs (last 24 hours): Temp Pulse Resp BP Pulse Ox 97.5 F L 70 18 119/60 96 06/11/18 06:00 06/11/18 09:04 06/11/18 06:00 06/11/18 09:04 06/11/18 06:00 Intake and Output: 06/11/18 06/11/18 06:59 18:59 Intake Total 660 Output Total 800 Balance -140 - Medications Medications: Current Medications Acetaminophen (Tylenol 325mg Tab) 650 mg PO Q6H PRN PRN Reason: Pain, moderate (4-7) Last Admin: 06/09/18 10:55 Dose: 650 mg Alprazolam (Xanax) 0.25 mg PO DAILY [facility]; Protocol Last Admin: 06/11/18 10:37 Dose: 0.25 mg Apixaban (Eliquis) 2.5 mg PO BID [facility]; Protocol Last Admin: 06/11/18 09:04 Dose: 2.5 mg Atenolol (Tenormin) 25 mg PO BID [facility] Last Admin: 06/11/18 09:04 Dose: 25 mg Atorvastatin Calcium (Lipitor) 20 mg PO DIN [facility] Last Admin: 06/10/18 17:10 Dose: 20 mg Digoxin (Lanoxin) 0.25 mg PO 1400 [facility] Last Admin: 06/10/18 13:41 Dose: 0.25 mg Enoxaparin Sodium (Lovenox) 60 mg SC Q12H [facility]; Protocol Last Admin: 05/19/18 21:00 Dose: Not Given Furosemide (Lasix) 20 mg PO DAILY [facility] Last Admin: 06/11/18 09:04 Dose: 20 mg Meropenem (Merrem Iv 1 Gm Premix) 1 gm in 50 mls @ 100 mls/hr IVPB Q8 [facility]; Protocol Stop: 06/17/18 22:01 Last Admin: 06/11/18 05:21 Dose: 100 mls/hr Mirtazapine (Remeron) 15 mg PO HS [facility] Last Admin: 06/11/18 05:21 Dose: Not Given Nystatin (Nystop Topical Powder) 0 gm TOP BID [facility] Last Admin: 06/11/18 09:05 Dose: 1 appl Ondansetron HCl (Zofran Inj) 4 mg IVP Q6H PRN PRN Reason: Nausea/Vomiting Oxycodone HCl (Oxycodone Immediate Release Tab) 2.5 mg PO DAILY [facility] Last Admin: 06/11/18 09:59 Dose: 2.5 mg Pantoprazole Sodium (Protonix Ec Tab) 40 mg PO 0600 [facility] Last Admin: 06/11/18 05:21 Dose: 40 mg Vitamin A (Vitamin A & D Oint Ud Foilpak) 1 ea TOP DAILY PRN PRN Reason: Dry skin - Labs Labs: 06/10/18 06:30 06/10/18 06:30 PT 13.5 SECONDS (9.4-12.5) H 06/04/18 05:40 INR 1.17 06/04/18 05:40 APTT 30.8 Seconds (25.1-36.5) 06/04/18 05:40 - Additional Findings Additional findings: - Constitutional Appears: Non-toxic, No Acute Distress, Pallor - Head Exam Head Exam: ATRAUMATIC, NORMOCEPHALIC - Eye Exam Eye Exam: EOMI, Normal appearance - ENT Exam ENT Exam: Mucous Membranes Moist, Small area of irritation behind R ear - Neck Exam Neck Exam: Full ROM, Normal Inspection - Respiratory Exam Respiratory Exam: Clear to Auscultation Bilateral, NORMAL BREATHING PATTERN. absent: Accessory Muscle Use - Cardiovascular Exam Cardiovascular Exam: REGULAR RHYTHM, +S1, +S2 - GI/Abdominal Exam GI & Abdominal Exam: Soft, Normal Bowel Sounds. absent: Distended, Firm, Gua rding, Rigid, Tenderness, Organomegaly, Rebound - Extremities Exam Extremities Exam: Normal Capillary Refill. absent: Joint Swelling, Pedal Edema Additional comments: right knee immobilizer in place, wrapped in hard cast, mild TTP and edema of distal R foot, SCDs on L calf Improved swelling in R dorsal foot, but still 2+ pitting edema. 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 PO intake improving, continuing to taper PPN. PLT count improving, on Eliquis. No sign of bleeding. Advancing diet to advanced bite size. Currently tolerating dysphagia diet. Hyperbaric oxygen therapy trial planned for 05/30. Dr. Oliva and Dr. Watson continue to recommend her 30 day course of hyperbaric therapy, 2 hours each, M-F, whch began on 05/30/18 which she tolerated. Per CM, unable to receive HBO if placement in [facility]. I&D in [place] 06/04 with podiatry/ortho. Wound cultures growing Pseudomonas, on Merrem day 4. 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 Mi) appreciated -CRP elevated b/c patient is ill; not an accurate assessment of the knee inflammation -superficial wound cx: pantoea sensitive to many abx: giving bactroban, polymixin, bacitracin ointment -Podiatry consulted. Recs appreciated. Ortho 05/29: At this time, given that patient has a periprosthetic infection involving skin, soft tissues and bone, pt would benefit from local wound debridement and hyperbaric therapy if no medical contraindications. If wound heals and infection eradicated, patient would be a candidate for reimplantation. MRI R knee 05/28 - difficult to exclude Osteo. No obvious bone destruction. Pain controlled. Doppler LLE - no DVT POD #7 debridement of necrotic skin Eliquis resumed 06/05 in AM Continue to recommend Rehab Began Lasix 20 mg PO daily for Leg edema, likely due to diastolic CHF after discussion with Patient rn acls . Patient refused pill yesterday and has refused for few prior days. Reviewed with patient need to take pill to cut down on lower extremity swelling, especially in light of recent surgery - Pseudomonas growing from final wound culture. ID has begun course of Merrem, which began night of 06/08 Postauricular Irritation likely 2/2 glasses placement A&D ointment applied continue to monitor Anemia, Thrombocytopenia- resolved -pt s/p 1 unit prbc, given a dose of erythropoietin -hyperproliferative erythroid response -anemia of chronic disease -iron, b12, folate wnl -began Eliquis 05/26- will continue to monitor thrombocytopenia and increased risk of bleeding -Heme/Onc recs appreciated -medication induced thrombocytopenia; zyvox can cause cytopenias -zyvox dc'd -INR 1.27 -Transfused 1 unit PRBC 05/29 after Hgb dropped to 7.2. -began Eliquis 2.5 mg PO BID 05/26. Held 06/02 08/09 upcoming I&D. Resume 06/05 AM Failure to thrive, dysphagia - improved -PPN has been tapered, but is being supplemented with Ensure. Tolerating diet. -Patient's family refusing PEG feeding at this time -Recent completion of 6 week course of Abx: zyvox and daptomycin discontinued -CT chest: no acute findings -CT head: no acute findings -EGD (04/2018): no esophageal pathology or signs of gastric outlet obstruction -repeat speech/swallow eval (05/23) -HEALTH AND WELLNESS MANAGER recommends trial puree consistency diet with extra gravy and thin liquids -aspiration/reflux precautions -GI recs appreciated -dysphagia, multifactorial - motility dysfunction, deconditioning -improved mentation and alertness -pt tolerating diet with no issues per nursing -neurology recommendation- no signs of neuromuscular disorder -Palliative recs: Jeannette LEVIN and I met with patients daughter's Isabel and Marii (both POA's). Family aware of mothers medical situation and poor prognosis. Benefits and burdens of feeding tube discussed at length. Daughters refusing PEG tube, in accordance of mother's AD wishes . Hospice services explained in detail. Questions answered. Daughters conflicted, state they are unable to stay home from their jobs in order to care for their mother. Daughter states that mother does not have the finances to pay for 24 hour aide or go to [place] facility. Atrial fibrillation - Digoxin 0.8 (05/16), Dig 1.4 (06/02) - Atenolol 25 mg PO daily - Holding parameters placed for digoxin and atenol for low HR - Eliquis 2.5 mg BID held 06/02 08/09 pending OR I&D, resumed 06/05 AM CAD - Aspirin held 06/[address] Medrano 08/09 high bleeding risk on Eliquis - Lipitor 20 mg PPx, Diet, Dispostion -DVT ppx: Eliquis, SCDs -Diet: regular -Dispo: patient clinically improving, tolerating po intake Social work: sw reviewed [facility] facilities in [facility] that are interested. sw a sked them to tour and provide sw with their choices by saturday or saturday. sw also reviewed [facility]-PAS and what it means. sw advised that in order to find a facility in [facility] that will accept patient this document needs to be completed. sw inquired about mom's finances, income and assets, to complete the PAS. Patient progress discussed with daughter Nina 06/10 in detail. Continue to encourage compliance with rehab. Percocet 2.5 mg to be given one hour before therapy to encourage participation. Low dose to avoid somnolence. Patient has not been taking Tylenol regularly and patient and daughter reports adverse reaction to oxycodone by itself. Patient seen, case reviewed and plan approved by Dr. Hernandez. Praveen Oliveros, PGY-1 <Jay Hernandez - Last Filed: 06/11/18 15:11> Objective - Vital Signs/Intake and Output Vital Signs (last 24 hours): Temp Pulse Resp BP Pulse Ox 97.5 F L 70 18 119/60 96 06/11/18 06:00 06/11/18 09:04 06/11/18 06:00 06/11/18 09:04 06/11/18 06:00 Intake and Output: 06/11/18 06/11/18 06:59 18:59 Intake Total 660 Output Total 800 Balance -140 - Medications Medications: Current Medications Acetaminophen (Tylenol 325mg Tab) 650 mg PO Q6H PRN PRN Reason: Pain, moderate (4-7) Last Admin: 06/09/18 10:55 Dose: 650 mg Alprazolam (Xanax) 0.25 mg PO DAILY [facility]; Protocol Last Admin: 06/11/18 10:37 Dose: 0.25 mg Apixaban (Eliquis) 2.5 mg PO BID [facility]; Protocol Last Admin: 06/11/18 09:04 Dose: 2.5 mg Atenolol (Tenormin) 25 mg PO BID [facility] Last Admin: 06/11/18 09:04 Dose: 25 mg Atorvastatin Calcium (Lipitor) 20 mg PO DIN [facility] Last Admin: 06/10/18 17:10 Dose: 20 mg Digoxin (Lanoxin) 0.25 mg PO 1400 [facility] Last Admin: 06/10/18 13:41 Dose: 0.25 mg Enoxaparin Sodium (Lovenox) 60 mg SC Q12H [facility]; Protocol Last Admin: 05/19/18 21:00 Dose: Not Given Furosemide (Lasix) 20 mg PO DAILY [facility] Last Admin: 06/11/18 09:04 Dose: 20 mg Meropenem (Merrem Iv 1 Gm Premix) 1 gm in 50 mls @ 100 mls/hr IVPB Q8 [facility]; Protocol Stop: 06/17/18 22:01 Last Admin: 06/11/18 05:21 Dose: 100 mls/hr Mirtazapine (Remeron) 15 mg PO HS [facility] Last Admin: 06/11/18 05:21 Dose: Not Given Nystatin (Nystop Topical Powder) 0 gm TOP BID [facility] Last Admin: 06/11/18 09:05 Dose: 1 appl Ondansetron HCl (Zofran Inj) 4 mg IVP Q6H PRN PRN Reason: Nausea/Vomiting Oxycodone HCl (Oxycodone Immediate Release Tab) 2.5 mg PO DAILY [facility] Last Admin: 06/11/18 09:59 Dose: 2.5 mg Pantoprazole Sodium (Protonix Ec Tab) 40 mg PO 0600 [facility] Last Admin: 06/11/18 05:21 Dose: 40 mg Vitamin A (Vitamin A & D Oint Ud Foilpak) 1 ea TOP DAILY PRN PRN Reason: Dry skin - Labs Labs: 06/10/18 06:30 06/10/18 06:30 PT 13.5 SECONDS (9.4-12.5) H 06/04/18 05:40 INR 1.17 06/04/18 05:40 APTT 30.8 Seconds (25.1-36.5) 06/04/18 05:40 Attending/Attestation - Attestation I have personally seen and examined this patient.: Yes I have fully participated in the care of the patient.: Yes I have reviewed all pertinent clinical information, including history, physical exam and plan: Yes Notes (Text): 06/11/18 15:10 82 year old female with past medical history of afib previously on coumadin, CAD, hypertension, right TKA, complicated by VRE with prosthesis removal who presented with intractable vomiting and failure to thrive. This has resolved and patient is currently tolerating meals. ID, podiatry and orthopedics are following as well. Patient had completed 6 weeks course of antibiotics. MRI knee was reviewed and patient was started on hyperbaric therapy. She is s/p debridement of necrotic skin POD #7. Wound cu lture grew Pseudomonas Aeruginosa and she is currently on meropenem. Monitor cbc closely while patient is on eliquis for afib. H/H has been stable. Thrombocytopenia has resolved. She was started on po lasix for leg edema likely secondary to chronic diastolic CHF. environmental compliance manager / social media intern are currently working of disposition to [facility]. Patient is DNR/DNI. Jay Hernandez MD Hospitalist.
--- NOTE | 2018-06-11 13:33 | CP.PCM.PN ---
<Brown Jeronimo - Last Filed: 06/11/18 13:30> Subjective - Date & Time of Evaluation Date of Evaluation: 06/11/18 Time of Evaluation: 13:30 - Subjective Subjective: Podiatry progress note for Dr. Oliva 82 y/o F patient 7 days S/P right knee incision and drainage with debridement of R knee infected wound and osteomyelitis. Patient was seen after her HBO session. Patient was Resting comfortably and NAD. She states she is having mild pain at her surgical site as of now. She denies any acute events overnight, She denies any pedal complaints, She denies N/V/F/C/SOB/CP. Objective - Vital Signs/Intake and Output Vital Signs (last 24 hours): Temp Pulse Resp BP Pulse Ox 97.5 F L 70 18 119/60 96 06/11/18 06:00 06/11/18 09:04 06/11/18 06:00 06/11/18 09:04 06/11/18 06:00 Intake and Output: 06/11/18 06/11/18 06:59 18:59 Intake Total 660 Output Total 800 Balance -140 - Medications Medications: Current Medications Acetaminophen (Tylenol 325mg Tab) 650 mg PO Q6H PRN PRN Reason: Pain, moderate (4-7) Last Admin: 06/09/18 10:55 Dose: 650 mg Alprazolam (Xanax) 0.25 mg PO DAILY [facility]; Protocol Last Admin: 06/11/18 10:37 Dose: 0.25 mg Apixaban (Eliquis) 2.5 mg PO BID [facility]; Protocol Last Admin: 06/11/18 09:04 Dose: 2.5 mg Atenolol (Tenormin) 25 mg PO BID [facility] Last Admin: 06/11/18 09:04 Dose: 25 mg Atorvastatin Calcium (Lipitor) 20 mg PO DIN [facility] Last Admin: 06/10/18 17:10 Dose: 20 mg Digoxin (Lanoxin) 0.25 mg PO 1400 [facility] Last Admin: 06/10/18 13:41 Dose: 0.25 mg Enoxaparin Sodium (Lovenox) 60 mg SC Q12H [facility]; Protocol Last Admin: 05/19/18 21:00 Dose: Not Given Furosemide (Lasix) 20 mg PO DAILY [facility] Last Admin: 06/11/18 09:04 Dose: 20 mg Meropenem (Merrem Iv 1 Gm Premix) 1 gm in 50 mls @ 100 mls/hr IVPB Q8 [facility]; Protocol Stop: 06/17/18 22:01 Last Admin: 06/11/18 05:21 Dose: 100 mls/hr Mirtazapine (Remeron) 15 mg PO HS [facility] Last Admin: 06/11/18 05:21 Dose: Not Given Nystatin (Nystop Topical Powder) 0 gm TOP BID [facility] Last Admin: 06/11/18 09:05 Dose: 1 appl Ondansetron HCl (Zofran Inj) 4 mg IVP Q6H PRN PRN Reason: Nausea/Vomiting Oxycodone HCl (Oxycodone Immediate Release Tab) 2.5 mg PO DAILY [facility] Last Admin: 06/11/18 09:59 Dose: 2.5 mg Pantoprazole Sodium (Protonix Ec Tab) 40 mg PO 0600 [facility] Last Admin: 06/11/18 05:21 Dose: 40 mg Vitamin A (Vitamin A & D Oint Ud Foilpak) 1 ea TOP DAILY PRN PRN Reason: Dry skin - Labs Labs: 06/10/18 06:30 06/10/18 06:30 PT 13.5 SECONDS (9.4-12.5) H 06/04/18 05:40 INR 1.17 06/04/18 05:40 APTT 30.8 Seconds (25.1-36.5) 06/04/18 05:40 - Constitutional Appears: Well, Non-toxic, No Acute Distress - Head Exam Head Exam: ATRAUMATIC, NORMOCEPHALIC - Extremities Exam Additional comments: R LE focused exam: Vasc: DP/PT faintly palpable. Cap refill< 3 sec to all digits. Temp gradient warm to warm. minimal edema to right knee. Mild Periwound erythema noted. Neuro: Gross and protective sensations are intact. Derm: A wound measures 12.5 cm X 4.5 cm X 0.5 cm with lateral aspect started to close down with some undermining and tracking. wound base is 20% fibrotic and 80% granular post debridement - improving. no drainage noted. No malodor. Mild periwound erythema noted. No clinical signs of infection noted MSK: Pain on palpating the periwound area. Muscle power around the knee joint couldn't be assessed due to pain and guarding. - Neurological Exam Neurological Exam: Alert, Awake, Oriented x3 Assessment and Plan - Assessment and Plan (Free Text) Assessment: 82 F patient 7 days S/P right knee incision and drainage with debridement of R knee infected wound and osteomyelitis Plan: Patient seen and evaluated at the bedside with Dr. Oliva Discussed plan with attending Dr. Oliva Charts, labs and vitals reviewed; Afebrile, No leukocytosis Wound culture: Pantonea Species Wound cleansed and dressed with xeroform, ABD, DSD, and SHANEKA Continue Multipodus boots while in bed Right knee x-ray - prosthesis removed, cement spacer in place Continue medical management per medicine and ID team LE venous duplex: No evidence of DVT R knee MRI (05/28): OM can't be excluded despite there is no obvious bony erosions Podiatry will continue to follow up the patient while in house <Kristen Oliva - Last Filed: 06/13/18 15:05> Objective - Vital Signs/Intake and Output Vital Signs (last 24 hours): Temp Pulse Resp BP Pulse Ox 97.6 F 60 18 117/65 98 06/13/18 14:00 06/13/18 14:00 06/13/18 14:00 06/13/18 14:00 06/13/18 14:00 Intake and Output: 06/13/18 06/13/18 06:59 18:59 Intake Total 720 450 Output Total 600 Balance 120 450 - Medications Medications: Current Medications Acetaminophen (Tylenol 325mg Tab) 650 mg PO Q6H PRN PRN Reason: Pain, moderate (4-7) Last Admin: 06/12/18 22:02 Dose: 650 mg Alprazolam (Xanax) 0.25 mg PO DAILY [facility]; Protocol PRN Reason: BEFORE HBO Last Admin: 06/13/18 11:03 Dose: 0.25 mg Apixaban (Eliquis) 2.5 mg PO BID [facility]; Protocol Last Admin: 06/13/18 09:04 Dose: 2.5 mg Atenolol (Tenormin) 25 mg PO BID [facility] Last Admin: 06/13/18 09:04 Dose: 25 mg Atorvastatin Calcium (Lipitor) 20 mg PO DIN [facility] Last Admin: 06/12/18 17:18 Dose: 20 mg Digoxin (Lanoxin) 0.25 mg PO 1400 [facility] Last Admin: 06/12/18 14:19 Dose: 0.25 mg Enoxaparin Sodium (Lovenox) 60 mg SC Q12H [facility]; Protocol Last Admin: 05/19/18 21:00 Dose: Not Given Furosemide (Lasix) 20 mg PO DAILY [facility] Last Admin: 06/13/18 09:04 Dose: 20 mg Meropenem (Merrem Iv 1 Gm Premix) 1 gm in 50 mls @ 100 mls/hr IVPB Q8 [facility]; Protocol Stop: 06/17/18 22:01 Last Admin: 06/13/18 05:21 Dose: 100 mls/hr Mirtazapine (Remeron) 15 mg PO HS [facility] Last Admin: 06/12/18 22:01 Dose: Not Given Nystatin (Nystop Topical Powder) 0 gm TOP BID [facility] Last Admin: 06/13/18 11:04 Dose: 1 appl Ondansetron HCl (Zofran Inj) 4 mg IVP Q6H PRN PRN Reason: Nausea/Vomiting Oxycodone/Acetaminophen (Percocet 2.5/325 Mg Tab) 1 tab PO DAILY PRN PRN Reason: Pain, moderate (4-7) Last Admin: 06/13/18 11:03 Dose: 1 tab Pantoprazole Sodium (Protonix Ec Tab) 40 mg PO 0600 [facility] Last Admin: 06/13/18 05:21 Dose: 40 mg Vitamin A (Vitamin A & D Oint Ud Foilpak) 1 ea TOP DAILY PRN PRN Reason: Dry skin - Labs Labs: 06/13/18 06:45 06/13/18 06:45 PT 13.5 SECONDS (9.4-12.5) H 06/04/18 05:40 INR 1.17 06/04/18 05:40 APTT 30.8 Seconds (25.1-36.5) 06/04/18 05:40 Attending/Attestation - Attestation I have personally seen and examined this patient.: Yes I have fully participated in the care of the patient.: Yes I have reviewed all pertinent clinical information, including history, physical exam and plan: Yes Notes (Text): 06/13/18 15:05 pt continuing to do daily HBO for 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
[2018-06-11] MEDS ORDERED: Vitamin A/D oint 60G TP PRN (14:54)
[2018-06-11] MEDS: Digoxin 250 mcg (0.25 mg) Tab PO SCH (15:09)
--- NOTE | 2018-06-11 16:26 | CP.PCM.PN ---
Subjective - Date & Time of Evaluation Date of Evaluation: 06/11/18 Time of Evaluation: 08:45 - Subjective Subjective: No fevers, not in distress, feeling a little stronger each day, no increased pain in the right knee. Objective - Vital Signs/Intake and Output Vital Signs (last 24 hours): Temp Pulse Resp BP Pulse Ox 98.2 F 62 18 106/57 L 98 06/10/18 21:50 06/10/18 21:50 06/10/18 21:50 06/10/18 21:50 06/10/18 21:50 Intake and Output: 06/10/18 06/11/18 18:59 06:59 Intake Total 660 Output Total 800 Balance -140 - Medications Medications: Current Medications Acetaminophen (Tylenol 325mg Tab) 650 mg PO Q6H PRN PRN Reason: Pain, moderate (4-7) Last Admin: 06/09/18 10:55 Dose: 650 mg Alprazolam (Xanax) 0.25 mg PO DAILY [facility]; Protocol Last Admin: 06/10/18 14:40 Dose: 0.25 mg Apixaban (Eliquis) 2.5 mg PO BID [facility]; Protocol Last Admin: 06/10/18 17:10 Dose: 2.5 mg Atenolol (Tenormin) 25 mg PO BID [facility] Last Admin: 06/10/18 17:10 Dose: 25 mg Atorvastatin Calcium (Lipitor) 20 mg PO DIN [facility] Last Admin: 06/10/18 17:10 Dose: 20 mg Digoxin (Lanoxin) 0.25 mg PO 1400 [facility] Last Admin: 06/10/18 13:41 Dose: 0.25 mg Enoxaparin Sodium (Lovenox) 60 mg SC Q12H [facility]; Protocol Last Admin: 05/19/18 21:00 Dose: Not Given Furosemide (Lasix) 20 mg PO DAILY [facility] Last Admin: 06/10/18 09:36 Dose: 20 mg Meropenem (Merrem Iv 1 Gm Premix) 1 gm in 50 mls @ 100 mls/hr IVPB Q8 [facility]; Protocol Stop: 06/17/18 22:01 Last Admin: 06/11/18 05:21 Dose: 100 mls/hr Mirtazapine (Remeron) 15 mg PO HS [facility] Last Admin: 06/11/18 05:21 Dose: Not Given Nystatin (Nystop Topical Powder) 0 gm TOP BID [facility] Last Admin: 06/10/18 18:02 Dose: 1 appl Ondansetron HCl (Zofran Inj) 4 mg IVP Q6H PRN PRN Reason: Nausea/Vomiting Oxycodone HCl (Oxycodone Immediate Release Tab) 2.5 mg PO DAILY [facility] Last Admin: 06/10/18 13:41 Dose: 2.5 mg Pantoprazole Sodium (Protonix Ec Tab) 40 mg PO 0600 [facility] Last Admin: 06/11/18 05:21 Dose: 40 mg Vitamin A (Vitamin A & D Oint Ud Foilpak) 1 ea TOP DAILY PRN PRN Reason: Dry skin - Labs Labs: 06/10/18 06:30 06/10/18 06:30 PT 13.5 SECONDS (9.4-12.5) H 06/04/18 05:40 INR 1.17 06/04/18 05:40 APTT 30.8 Seconds (25.1-36.5) 06/04/18 05:40 - Constitutional Appears: Chronically Ill - Head Exam Head Exam: NORMAL INSPECTION - Respiratory Exam Respiratory Exam: Decreased Breath Sounds - Cardiovascular Exam Cardiovascular Exam: +S1, +S2 - GI/Abdominal Exam GI & Abdominal Exam: Soft. 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 Watson, growing Pseudomonas S/P nausea and vomiting with lactic acidosis, R/O due to meds R/O functional gastrointestinal issue - patient continues to improve clinically - patient without vomiting currently, tolerating some PO intake and patient continues to be awake and alert CAD S/P PCI HTN atrial fibrillation osteoarthritis S/P right knee replacement Plan she already has had 6 weeks of antibiotics (since 04/08/2018) for VRE the thrombocytopenia was probably multifactorial (including meds such as Zyvox and chronic illness - we are continuing to monitor platelet count and Hematology is on-board, patient also has low Hgb and there may be myelosuppression but the platelet count has now normalized) - discussed with Dr. Watson previously and patient - will continue Merrem and continue to monitor clinically
--- NOTE | 2018-06-11 17:06 | CP.PCM.PCO ---
Physician Communication Note - Physician Communication Note Physician Communication Note: Awaiting authorization ADRIANA JOSEPH planning for DC to [facility].Cont. antibx per ID
[2018-06-12] MEDS: Pantoprazole 40 mg EC Tab PO SCH (05:07)
[2018-06-12] MEDS: Meropenem IV 1 gm in NS 1 GM/50 ML BAG IVPB SCH ×3 (05:07→22:02)
[2018-06-12 07:03] LABS: BASO # 0.05 K/mm3 (0.0-2.0); BASO % 0.6 % (0.0-3.0); EOS # 0.5 (0.0-0.7); EOS % 6.4 % (1.5-5.0); GRAN # 4.93 (1.4-6.5); GRAN % 63.1 % (50.0-68.0); HEMOGLOBIN 8.8 g/dL (12.0-16.0); LYMPH # 1.7 (1.2-3.4); MEAN CELL VOLUME 88.7 fl (80.0-105.0); MEAN CORPUSCULAR HEMOGLOBIN 27.7 pg (25.0-35.0); MEAN CORPUSCULAR HGB CONC 31.2 g/dl (31.0-37.0); MEAN PLATELET VOLUME 10.3 fl (7.0-11.0); MONO # 0.6 (0.1-0.6); MONO % 7.9 % (1.0-6.0); RBC 3.18 10^6/uL (3.5-6.1); RED CELL DISTRIBUTION WIDTH 17.9 % (11.5-14.5); WHITE BLOOD COUNT 7.8 10^3/uL (4.5-11.0)
[2018-06-12 07:29] LABS: ALB/GLOB RATIO 0.8 (1.1-1.8); ALBUMIN 2.3 g/dL (3.0-4.8); ALT/SGPT 23 U/L (7-56); AST/SGOT 21 U/L (14-36); BLOOD UREA NITROGEN 9 mg/dL (7-21); CALCIUM 7.9 mg/dL (8.4-10.5); GFR NON-AFRICAN AMERICAN > 60
--- NOTE | 2018-06-12 09:36 | CP.PCM.PN ---
<Praveen Oliveros - Last Filed: 06/12/18 15:54> Subjective - Date & Time of Evaluation Date of Evaluation: 06/12/18 Time of Evaluation: 07:50 - Subjective Subjective: Praveen Oliveros PGY-1 Progress Note for Hospitalist Service Patient seen and examined at bedside. No acute events overnight. Patient is POD#8 s/p right knee debridement. Patient reports a good night sleep and slight hunger. Discussed need to not refuse water pill with patient. Denies fevers, chills, chest pain, shortness of breath, abdominal pain and acute leg pain at this time. Objective - Vital Signs/Intake and Output Vital Signs (last 24 hours): Temp Pulse Resp BP Pulse Ox 97.5 F L 61 18 138/65 98 06/12/18 06:00 06/12/18 06:00 06/12/18 06:00 06/12/18 06:00 06/12/18 06:00 Intake and Output: 06/12/18 06/12/18 06:59 18:59 Intake Total 720 Output Total 750 Balance -30 - Medications Medications: Current Medications Acetaminophen (Tylenol 325mg Tab) 650 mg PO Q6H PRN PRN Reason: Pain, moderate (4-7) Last Admin: 06/11/18 16:12 Dose: 650 mg Alprazolam (Xanax) 0.25 mg PO DAILY [facility]; Protocol Last Admin: 06/11/18 10:37 Dose: 0.25 mg Apixaban (Eliquis) 2.5 mg PO BID [facility]; Protocol Last Admin: 06/11/18 18:32 Dose: 2.5 mg Atenolol (Tenormin) 25 mg PO BID [facility] Last Admin: 06/11/18 18:33 Dose: 25 mg Atorvastatin Calcium (Lipitor) 20 mg PO DIN [facility] Last Admin: 06/11/18 18:32 Dose: 20 mg Digoxin (Lanoxin) 0.25 mg PO 1400 [facility] Last Admin: 06/11/18 15:09 Dose: 0.25 mg Enoxaparin Sodium (Lovenox) 60 mg SC Q12H [facility]; Protocol Last Admin: 05/19/18 21:00 Dose: Not Given Furosemide (Lasix) 20 mg PO DAILY [facility] Last Admin: 06/11/18 09:04 Dose: 20 mg Meropenem (Merrem Iv 1 Gm Premix) 1 gm in 50 mls @ 100 mls/hr IVPB Q8 [facility]; Protocol Stop: 06/17/18 22:01 Last Admin: 06/12/18 05:07 Dose: 100 mls/hr Mirtazapine (Remeron) 15 mg PO HS [facility] Last Admin: 06/11/18 21:24 Dose: Not Given Nystatin (Nystop Topical Powder) 0 gm TOP BID [facility] Last Admin: 06/11/18 18:19 Dose: 1 appl Ondansetron HCl (Zofran Inj) 4 mg IVP Q6H PRN PRN Reason: Nausea/Vomiting Oxycodone/Acetaminophen (Percocet 2.5/325 Mg Tab) 1 tab PO DAILY PRN PRN Reason: Pain, moderate (4-7) Pantoprazole Sodium (Protonix Ec Tab) 40 mg PO 0600 [facility] Last Admin: 06/12/18 05:07 Dose: 40 mg Vitamin A (Vitamin A & D Oint Ud Foilpak) 1 ea TOP DAILY PRN PRN Reason: Dry skin - Labs Labs: 06/12/18 06:20 06/12/18 06:20 PT 13.5 SECONDS (9.4-12.5) H 06/04/18 05:40 INR 1.17 06/04/18 05:40 APTT 30.8 Seconds (25.1-36.5) 06/04/18 05:40 - Additional Findings Additional findings: - Constitutional Appears: Non-toxic, No Acute Distress, Pallor - Head Exam Head Exam: ATRAUMATIC, NORMOCEPHALIC - Eye Exam Eye Exam: EOMI, Normal appearance - ENT Exam ENT Exam: Mucous Membranes Moist, Small area of irritation behind R ear - Neck Exam Neck Exam: Full ROM, Normal Inspection - Respiratory Exam Respiratory Exam: Clear to Auscultation Bilateral, NORMAL BREATHING PATTERN. absent: Accessory Muscle Use - Cardiovascular Exam Cardiovascular Exam: REGULAR RHYTHM, +S1, +S2 - GI/Abdominal Exam GI & Abdominal Exam: Soft, Normal Bowel Sounds. absent: Distended, Firm, Guarding, Rigid, Tenderness, Organomegaly, Rebound - Extremities Exam Extremities Exam: Normal Capillary Refill. absent: Joint Swelling, Pedal Edema Additional comments: right knee immobilizer in place, wrapped in hard cast, mild TTP and edema of distal R foot, SCDs on L calf Improved swelling in R dorsal foot, but still 2+ pitting edema. 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 PO intake improving, continuing to taper PPN. PLT count improving, on Eliquis. No sign of bleeding. Advancing diet to advanced bite size. Currently tolerating dysphagia diet. Hyperbaric oxygen therapy trial planned for 05/30. Dr. Oliva and Dr. Watson continue to recommend her 30 day course of hyperbaric therapy, 2 hours each, M-F, which began on 05/30/18 which she tolerated. Per CM, unable to receive HBO if placement in [facility]. I&D in [place] 06/04 with podiatry/ortho. Wound cultures growing Pseudomonas, on Merrem day 5. 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 Mi) appreciated -CRP elevated b/c patient is ill; not an accurate assessment of the knee inflammation -superficial wound cx: pantoea sensitive to many abx: giving bactroban, polymixin, bacitracin ointment -Podiatry consulted. Recs appreciated. Ortho 05/29: At this time, given that patient has a periprosthetic infection involving skin, soft tissues and bone, pt would benefit from local wound debridement and hyperbaric therapy if no medical contraindications. If wound heals and infection eradicated, patient would be a candidate for reimplantation. MRI R knee 05/28 - difficult to exclude Osteo. No obvious bone destruction. Pain controlled. 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 Patient refused pill yesterday and has refused for few prior days. Reviewed with patient need to take pill to cut down on lower extremity swelling, especially in light of recent surgery - Pseudomonas growing from final wound culture. ID has begun course of Merrem, which began night of 06/08 Psuedohypocalcemia Ca corrected is 9.2 Alb 2.3, Ca 7.9 will continue to monitor Postauricular Irritation likely / glasses placement A&D ointment applied continue to monitor Anemia, Thrombocytopenia- resolved -pt s/p 1 unit prbc, given a dose of erythropoietin -hyperproliferative erythroid response -anemia of chronic disease -iron, b12, folate wnl -began Eliquis 05/26- will continue to monitor thrombocytopenia and increased risk of bleeding -Heme/Onc recs appreciated -medication induced thrombocytopenia; zyvox can cause cytopenias -zyvox dc'd -INR 1.27 -Transfused 1 unit PRBC 05/29 after Hgb dropped to 7.2. -began Eliquis 2.5 mg PO BID 05/26. Held 06/02 08/09 upcoming I&D. Resume 06/05 AM - Hgb 8.8 06/12, will continue to monitor Failure to thrive, dysphagia - improved -PPN has been tapered, but is being supplemented with Ensure. Tolerating diet. -Patient's family refusing PEG feeding at this time -Recent completion of 6 week course of Abx: zyvox and daptomycin discontinued -CT chest: no acute findings -CT head: no acute findings -EGD (04/2018): no esophageal pathology or signs of gastric outlet obstruction -repeat speech/swallow eval (05/23) -REPRESENTATIVE [employer]LEBOT[employer]Y [employer] recommends trial puree consistency diet with extra gravy and thin liquids -aspiration/reflux precautions -GI recs appreciated -dysphagia, multifactorial - motility dysfunction, deconditioning -improved mentation and alertness -pt tolerating diet with no issues per nursing -neurology recommendation- no signs of neuromuscular disorder -Palliative recs: Jeannette LEVIN and I met with patients daughter's Isabel and Marii (both POA's). Family aware of mothers medical situation and poor prognosis. Benefits and burdens of feeding tube discussed at length. Daughters refusing PEG tube, in accordance of mother's AD wishes . Hospice services explained in detail. Questions answered. Daughters conflicted, state they are unable to stay home from their jobs in order to care for their mother. Daughter states that mother does not have the finances to pay for 24 hour aide or go to [place] facility. Atrial fibrillation - Digoxin 0.8 (05/16), Dig 1.4 (06/02) - Atenolol 25 mg PO daily - Holding parameters placed for digoxin and atenol for low HR - Eliquis 2.5 mg BID held 06/02 08/09 pending OR I&D, resumed 06/05 AM CAD - Aspirin held 06/[address] Medrano 08/09 high bleeding risk on Eliquis - Lipitor 20 mg PPx, Diet, Dispostion -DVT ppx: Eliquis, SCDs -Diet: regular -Dispo: patient clinically improving, tolerating po intake Social work: [employer] vs [employer]. Pending [facility] acceptance pending documentation. Patient progress discussed with daughter Nina 06/10 in detail. Continue to encourage compliance with rehab. Percocet 2.5 mg to be given one hour before therapy to encourage participation. Low dose to avoid somnolence. Patient has not been taking Tylenol regularly and patient and daughter reports adverse reaction to oxycodone by itself. Patient seen, case reviewed and plan approved by Dr. Hernandez. Praveen lOiveros, PGY-1 <Jay Hernandez - Last Filed: 06/12/18 16:22> Objective - Vital Signs/Intake and Output Vital Signs (last 24 hours): Temp Pulse Resp BP Pulse Ox 98.6 F 69 18 102/52 L 98 06/12/18 14:00 06/12/18 14:00 06/12/18 14:00 06/12/18 14:00 06/12/18 14:00 Intake and Output: 06/12/18 06/12/18 06:59 18:59 Intake Total 720 Output Total 750 Balance -30 - Medications Medications: Current Medications Acetaminophen (Tylenol 325mg Tab) 650 mg PO Q6H PRN PRN Reason: Pain, moderate (4-7) Last Admin: 06/11/18 16:12 Dose: 650 mg Alprazolam (Xanax) 0.25 mg PO DAILY [facility]; Protocol Last Admin: 06/12/18 09:55 Dose: 0.25 mg Apixaban (Eliquis) 2.5 mg PO BID [facility]; Protocol Last Admin: 06/12/18 09:54 Dose: 2.5 mg Atenolol (Tenormin) 25 mg PO BID [facility] Last Admin: 06/12/18 09:54 Dose: 25 mg Atorvastatin Calcium (Lipitor) 20 mg PO DIN [facility] Last Admin: 06/11/18 18:32 Dose: 20 mg Digoxin (Lanoxin) 0.25 mg PO 1400 [facility] Last Admin: 06/12/18 14:19 Dose: 0.25 mg Enoxaparin Sodium (Lovenox) 60 mg SC Q12H [facility]; Protocol Last Admin: 05/19/18 21:00 Dose: Not Given Furosemide (Lasix) 20 mg PO DAILY [facility] Last Admin: 06/12/18 09:53 Dose: 20 mg Meropenem (Merrem Iv 1 Gm Premix) 1 gm in 50 mls @ 100 mls/hr IVPB Q8 [facility]; Protocol Stop: 06/17/18 22:01 Last Admin: 06/12/18 14:20 Dose: 100 mls/hr Mirtazapine (Remeron) 15 mg PO HS [facility] Last Admin: 06/11/18 21:24 Dose: Not Given Nystatin (Nystop Topical Powder) 0 gm TOP BID [facility] Last Admin: 06/12/18 09:50 Dose: 1 appl Ondansetron HCl (Zofran Inj) 4 mg IVP Q6H PRN PRN Reason: Nausea/Vomiting Oxycodone/Acetaminophen (Percocet 2.5/325 Mg Tab) 1 tab PO DAILY PRN PRN Reason: Pain, moderate (4-7) Last Admin: 06/12/18 09:54 Dose: 1 tab Pantoprazole Sodium (Protonix Ec Tab) 40 mg PO 0600 [facility] Last Admin: 06/12/18 05:07 Dose: 40 mg Vitamin A (Vitamin A & D Oint Ud Foilpak) 1 ea TOP DAILY PRN PRN Reason: Dry skin - Labs Labs: 06/12/18 06:20 06/12/18 06:20 PT 13.5 SECONDS (9.4-12.5) H 06/04/18 05:40 INR 1.17 06/04/18 05:40 APTT 30.8 Seconds (25.1-36.5) 06/04/18 05:40 Attending/Attestation - Attestation I have personally seen and examined this patient.: Yes I have fully participated in the care of the patient.: Yes I have reviewed all pertinent clinical information, including history, physical exam and plan: Yes Notes (Text): 06/12/18 16:21 82 year old female with past medical history of afib previously on coumadin, CAD, hypertension, right TKA, complicated by VRE with prosthesis removal who presented with intractable vomiting and failure to thrive. This has resolved and patient is currently tolerating meals. ID, podiatry and orthopedics are following as well. Patient had completed 6 weeks course of antibiotics. MRI knee was reviewed and patient was started on hyperbaric therapy. She is s/p debridement of necrotic skin POD #8. Wound culture grew Pseudomonas Aeruginosa and she is currently on meropenem. Monitor cbc closely while patient is on eliquis for afib. Thrombocytopenia has resolved. She was started on po lasix for leg edema likely secondary to chronic diastolic CHF. building manager / director social welfare are currently working of disposition to [facility]. Notes were reviewed. Patient is DNR/DNI. Jay Hernandez MD Hospitalist.
[2018-06-12] MEDS: Nystatin 100,000 Units/gm Topical Pow(15 gm) TOP SCH ×2 (09:50→17:16)
--- NOTE | 2018-06-12 09:51 | PQF ---
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 Please specify the severity Such as: -- Mild - first degree -- Moderate - second degree -- Severe - third degree -- Severe malnutrition with marasmus -- Other, please specify The patient's Clinical Indicators include: Failure to thrive, dysphagia - -PPN has been tapered, but is being supplemented with Ensure -Patient's family refusing PEG feeding at this time T-Protein- 5.2, Albumin- 2.3 Query created by: Garima Ramirez on 06/12/2018 9:35 AM Electronically signed by: Jay Hernandez MD 06/12/2018 9:47 AM
[2018-06-12] MEDS: Oxycodone/Acetaminophen 2.5/325 mg Tab PO PRN (09:54)
[2018-06-12] MEDS: Digoxin 250 mcg (0.25 mg) Tab PO SCH (14:19)
--- NOTE | 2018-06-12 15:05 | CP.PCM.PN ---
<Brown Jeronimo - Last Filed: 06/12/18 15:03> Subjective - Date & Time of Evaluation Date of Evaluation: 06/12/18 Time of Evaluation: 15:03 - Subjective Subjective: Podiatry progress note for Dr. Oliva 82 y/o F patient 8 days S/P right knee incision and drainage with debridement of R knee infected wound and osteomyelitis. Patient was seen after her HBO session. Patient was Resting comfortably and NAD. She states she is still having mild pain at her surgical site as of now. She denies any acute events overnight, She denies any pedal complaints, She denies N/V/F/C/SOB/CP. Objective - Vital Signs/Intake and Output Vital Signs (last 24 hours): Temp Pulse Resp BP Pulse Ox 98.6 F 69 18 102/52 L 98 06/12/18 14:00 06/12/18 14:00 06/12/18 14:00 06/12/18 14:00 06/12/18 14:00 Intake and Output: 06/12/18 06/12/18 06:59 18:59 Intake Total 720 Output Total 750 Balance -30 - Medications Medications: Current Medications Acetaminophen (Tylenol 325mg Tab) 650 mg PO Q6H PRN PRN Reason: Pain, moderate (4-7) Last Admin: 06/11/18 16:12 Dose: 650 mg Alprazolam (Xanax) 0.25 mg PO DAILY [facility]; Protocol Last Admin: 06/12/18 09:55 Dose: 0.25 mg Apixaban (Eliquis) 2.5 mg PO BID [facility]; Protocol Last Admin: 06/12/18 09:54 Dose: 2.5 mg Atenolol (Tenormin) 25 mg PO BID [facility] Last Admin: 06/12/18 09:54 Dose: 25 mg Atorvastatin Calcium (Lipitor) 20 mg PO DIN [facility] Last Admin: 06/11/18 18:32 Dose: 20 mg Digoxin (Lanoxin) 0.25 mg PO 1400 [facility] Last Admin: 06/12/18 14:19 Dose: 0.25 mg Enoxaparin Sodium (Lovenox) 60 mg SC Q12H [facility]; Protocol Last Admin: 05/19/18 21:00 Dose: Not Given Furosemide (Lasix) 20 mg PO DAILY [facility] Last Admin: 06/12/18 09:53 Dose: 20 mg Meropenem (Merrem Iv 1 Gm Premix) 1 gm in 50 mls @ 100 mls/hr IVPB Q8 [facility]; Protocol Stop: 06/17/18 22:01 Last Admin: 06/12/18 14:20 Dose: 100 mls/hr Mirtazapine (Remeron) 15 mg PO HS [facility] Last Admin: 06/11/18 21:24 Dose: Not Given Nystatin (Nystop Topical Powder) 0 gm TOP BID [facility] Last Admin: 06/12/18 09:50 Dose: 1 appl Ondansetron HCl (Zofran Inj) 4 mg IVP Q6H PRN PRN Reason: Nausea/Vomiting Oxycodone/Acetaminophen (Percocet 2.5/325 Mg Tab) 1 tab PO DAILY PRN PRN Reason: Pain, moderate (4-7) Last Admin: 06/12/18 09:54 Dose: 1 tab Pantoprazole Sodium (Protonix Ec Tab) 40 mg PO 0600 [facility] Last Admin: 06/12/18 05:07 Dose: 40 mg Vitamin A (Vitamin A & D Oint Ud Foilpak) 1 ea TOP DAILY PRN PRN Reason: Dry skin - Labs Labs: 06/12/18 06:20 06/12/18 06:20 PT 13.5 SECONDS (9.4-12.5) H 06/04/18 05:40 INR 1.17 06/04/18 05:40 APTT 30.8 Seconds (25.1-36.5) 06/04/18 05:40 - Constitutional Appears: Well, Non-toxic, No Acute Distress - Head Exam Head Exam: ATRAUMATIC, NORMOCEPHALIC - Extremities Exam Additional comments: R LE focused exam: Vasc: DP/PT faintly palpable. Cap refill< 3 sec to all digits. Temp gradient warm to warm. minimal edema to right knee. Mild Periwound erythema noted. Neuro: Gross and protective sensations are intact. Derm: A wound measures 12.5 cm X 4.5 cm X 0.5 cm with lateral aspect started to close down with some undermining and tracking. wound base is 20% fibrotic and 80% granular post debridement - improving. no drainage noted. No malodor. Mild periwound erythema noted. No clinical signs of infection noted MSK: Pain on palpating the periwound area. Muscle power around the knee joint couldn't be assessed due to pain and guarding. - Neurological Exam Neurological Exam: Alert, Awake, Oriented x3 Assessment and Plan - Assessment and Plan (Free Text) Assessment: 82 F patient 8 days S/P right knee incision and drainage with debridement of R knee infected wound and osteomyelitis Plan: Patient seen and evaluated at the bedside with Dr. Oliva Discussed plan with attending Dr. Oliva Charts, labs and vitals reviewed; Afebrile, No leukocytosis Wound culture: Pantonea Species Wound cleansed and dressed with xeroform, ABD, DSD, and SHANEKA Continue Multipodus boots while in bed Right knee x-ray - prosthesis removed, cement spacer in place Continue medical management per medicine and ID team LE venous duplex: No evidence of DVT R knee MRI (05/28): OM can't be excluded despite there is no obvious bony erosions Podiatry will continue to follow up the patient while in house <Kristen Oliva - Last Filed: 06/13/18 14:43> Objective - Vital Signs/Intake and Output Vital Signs (last 24 hours): Temp Pulse Resp BP Pulse Ox 97.6 F 60 18 117/65 98 06/13/18 14:00 06/13/18 14:00 06/13/18 14:00 06/13/18 14:00 06/13/18 14:00 Intake and Output: 06/13/18 06/13/18 06:59 18:59 Intake Total 720 Output Total 600 Balance 120 - Medications Medications: Current Medications Acetaminophen (Tylenol 325mg Tab) 650 mg PO Q6H PRN PRN Reason: Pain, moderate (4-7) Last Admin: 06/12/18 22:02 Dose: 650 mg Alprazolam (Xanax) 0.25 mg PO DAILY [facility]; Protocol PRN Reason: BEFORE HBO Last Admin: 06/13/18 11:03 Dose: 0.25 mg Apixaban (Eliquis) 2.5 mg PO BID [facility]; Protocol Last Admin: 06/13/18 09:04 Dose: 2.5 mg Atenolol (Tenormin) 25 mg PO BID [facility] Last Admin: 06/13/18 09:04 Dose: 25 mg Atorvastatin Calcium (Lipitor) 20 mg PO DIN [facility] Last Admin: 06/12/18 17:18 Dose: 20 mg Digoxin (Lanoxin) 0.25 mg PO 1400 [facility] Last Admin: 06/12/18 14:19 Dose: 0.25 mg Enoxaparin Sodium (Lovenox) 60 mg SC Q12H [facility]; Protocol Last Admin: 05/19/18 21:00 Dose: Not Given Furosemide (Lasix) 20 mg PO DAILY [facility] Last Admin: 06/13/18 09:04 Dose: 20 mg Meropenem (Merrem Iv 1 Gm Premix) 1 gm in 50 mls @ 100 mls/hr IVPB Q8 [facility]; Protocol Stop: 06/17/18 22:01 Last Admin: 06/13/18 05:21 Dose: 100 mls/hr Mirtazapine (Remeron) 15 mg PO HS [facility] Last Admin: 06/12/18 22:01 Dose: Not Given Nystatin (Nystop Topical Powder) 0 gm TOP BID [facility] Last Admin: 06/13/18 11:04 Dose: 1 appl Ondansetron HCl (Zofran Inj) 4 mg IVP Q6H PRN PRN Reason: Nausea/Vomiting Oxycodone/Acetaminophen (Percocet 2.5/325 Mg Tab) 1 tab PO DAILY PRN PRN Reason: Pain, moderate (4-7) Last Admin: 06/13/18 11:03 Dose: 1 tab Pantoprazole Sodium (Protonix Ec Tab) 40 mg PO 0600 [facility] Last Admin: 06/13/18 05:21 Dose: 40 mg Vitamin A (Vitamin A & D Oint Ud Foilpak) 1 ea TOP DAILY PRN PRN Reason: Dry skin - Labs Labs: 06/13/18 06:45 06/13/18 06:45 PT 13.5 SECONDS (9.4-12.5) H 06/04/18 05:40 INR 1.17 06/04/18 05:40 APTT 30.8 Seconds (25.1-36.5) 06/04/18 05:40 Attending/Attestation - Attestation I have personally seen and examined this patient.: Yes I have fully participated in the care of the patient.: Yes I have reviewed all pertinent clinical information, including history, physical exam and plan: Yes Notes (Text): 12/07/18 14:42 pt seen post HBO much better spirits; wound evaluated - it is clean and granular but the space is still seen in the medial aspect of the wound; no signs of infection or abcess noted
--- NOTE | 2018-06-12 23:12 | PN ---
DATE: 06/12/2018 SUBJECTIVE: The patient is seen in bed, in no acute distress. PHYSICAL EXAMINATION: VITAL SIGNS: Temperature is 98, blood pressure is 102/50, and respiratory rate of 18. HEENT: Unremarkable. NECK: Supple. LUNGS: Have decreased breath sounds. HEART: Normal S1 and S2. ABDOMEN: Soft. LABORATORY DATA: Reveals a white count of 7.8, hemoglobin of 8, and platelets of 207. Chemistries reveal a BUN of 9 and creatinine of 0.5. Urinalysis is noted and toxicology is noted. Microbiology reveals the Pseudomonas is noted. Review of orders reveals the patient is on meropenem. 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 The patient continues to improve. We will follow closely with you. Dominick Simeon MD
--- NOTE | 2018-06-13 00:54 | CP.PCM.PN ---
Subjective - Date & Time of Evaluation Date of Evaluation: 06/12/18 Time of Evaluation: 18:00 - Subjective Subjective: SUBJECTIVE: She is comfortable in bed, in no acute distress. GC improved markedly. Hemoglobin and hematocrit declined today. Denies any pain. Still not ambulating. REVIEW OF SYSTEMS: As per HPI. Rest of 12-point review of systems reviewed, negative. PHYSICAL EXAMINATION GENERAL: Comfortable in bed, in no acute distress. VITAL SIGNS: reviewed. HEENT: Pallor positive. NECK: No lymphadenopathy. CHEST: Air entry present and equal, bilateral. No added sound. CARDIOVASCULAR: S1, S2 normal. No murmur, no gallop. ABDOMEN: Soft, nontender. No hepatosplenomegaly. EXTREMITY: 1+ edema. LABORATORY DATA: reviewed. MEDICATIONS: Reviewed. ASSESSMENT: 1. Chronic anemia. 2. Right knee prosthesis infection. 3. Atrial fibrillation. 4. Coronary artery disease. PLAN: Hb declined today. Continue to monitor. PRBC for Hb less than 8.0gm/dl. She is currently on Eliquis for anticoagulation, we will continue with that. General condition improved. For prosthesis infection, being followed by ID, s/p debribment. Brianna Pritchard MD Objective - Vital Signs/Intake and Output Vital Signs (last 24 hours): Temp Pulse Resp BP Pulse Ox 98 F 67 18 118/58 L 99 06/12/18 22:38 06/12/18 22:38 06/12/18 22:38 06/12/18 22:38 06/12/18 22:38 Intake and Output: 06/12/18 06/13/18 18:59 06:59 Intake Total 540 Output Total 100 Balance 440 - Medications Medications: Current Medications Acetaminophen (Tylenol 325mg Tab) 650 mg PO Q6H PRN PRN Reason: Pain, moderate (4-7) Last Admin: 06/12/18 22:02 Dose: 650 mg Alprazolam (Xanax) 0.25 mg PO DAILY PRN; Protocol PRN Reason: BEFORE HBO Apixaban (Eliquis) 2.5 mg PO BID [facility]; Protocol Last Admin: 06/12/18 17:18 Dose: 2.5 mg Atenolol (Tenormin) 25 mg PO BID [facility] Last Admin: 06/12/18 17:18 Dose: 25 mg Atorvastatin Calcium (Lipitor) 20 mg PO DIN [facility] Last Admin: 06/12/18 17:18 Dose: 20 mg Digoxin (Lanoxin) 0.25 mg PO 1400 [facility] Last Admin: 06/12/18 14:19 Dose: 0.25 mg Enoxaparin Sodium (Lovenox) 60 mg SC Q12H [facility]; Protocol Last Admin: 05/19/18 21:00 Dose: Not Given Furosemide (Lasix) 20 mg PO DAILY [facility] Last Admin: 06/12/18 09:53 Dose: 20 mg Meropenem (Merrem Iv 1 Gm Premix) 1 gm in 50 mls @ 100 mls/hr IVPB Q8 [facility]; Protocol Stop: 06/17/18 22:01 Last Admin: 06/12/18 22:02 Dose: 100 mls/hr Mirtazapine (Remeron) 15 mg PO HS [facility] Last Admin: 06/12/18 22:01 Dose: Not Given Nystatin (Nystop Topical Powder) 0 gm TOP BID [facility] Last Admin: 06/12/18 17:16 Dose: 1 appl Ondansetron HCl (Zofran Inj) 4 mg IVP Q6H PRN PRN Reason: Nausea/Vomiting Oxycodone/Acetaminophen (Percocet 2.5/325 Mg Tab) 1 tab PO DAILY PRN PRN Reason: Pain, moderate (4-7) Last Admin: 06/12/18 09:54 Dose: 1 tab Pantoprazole Sodium (Protonix Ec Tab) 40 mg PO 0600 [facility] Last Admin: 06/12/18 05:07 Dose: 40 mg Vitamin A (Vitamin A & D Oint Ud Foilpak) 1 ea TOP DAILY PRN PRN Reason: Dry skin - Labs Labs: 06/12/18 06:20 06/12/18 06:20 PT 13.5 SECONDS (9.4-12.5) H 06/04/18 05:40 INR 1.17 06/04/18 05:40 APTT 30.8 Seconds (25.1-36.5) 06/04/18 05:40
[2018-06-13] MEDS: Meropenem IV 1 gm in NS 1 GM/50 ML BAG IVPB SCH ×3 (05:21→21:55)
[2018-06-13] MEDS: Pantoprazole 40 mg EC Tab PO SCH (05:21)
[2018-06-13 07:27] LABS: BASO # 0.06 K/mm3 (0.0-2.0); BASO % 0.9 % (0.0-3.0); EOS # 0.5 (0.0-0.7); EOS % 6.7 % (1.5-5.0); GRAN # 4.03 (1.4-6.5); GRAN % 59.1 % (50.0-68.0); HEMOGLOBIN 9.1 g/dL (12.0-16.0); LYMPH # 1.7 (1.2-3.4); LYMPH % 24.2 % (22.0-35.0); MEAN CORPUSCULAR HEMOGLOBIN 27.8 pg (25.0-35.0); MEAN CORPUSCULAR HGB CONC 31.3 g/dl (31.0-37.0); MEAN PLATELET VOLUME 10.5 fl (7.0-11.0); MONO # 0.6 (0.1-0.6); MONO % 9.1 % (1.0-6.0); RBC 3.27 10^6/uL (3.5-6.1); WHITE BLOOD COUNT 6.8 10^3/uL (4.5-11.0)
[2018-06-13 07:44] LABS: BLOOD UREA NITROGEN 7 mg/dL (7-21); GFR NON-AFRICAN AMERICAN > 60
[2018-06-13] MEDS ORDERED: Potassium Chloride 20 mEq ER Tab PO STA (08:39)
[2018-06-13] MEDS: Oxycodone/Acetaminophen 2.5/325 mg Tab PO PRN (11:03)
[2018-06-13] MEDS: Nystatin 100,000 Units/gm Topical Pow(15 gm) TOP SCH ×2 (11:04→17:35)
--- NOTE | 2018-06-13 13:09 | CP.PCM.PN ---
<Praveen Oliveros - Last Filed: 06/13/18 14:57> Subjective - Date & Time of Evaluation Date of Evaluation: 06/13/18 Time of Evaluation: 08:00 - Subjective Subjective: Praveen Oliveros PGY-1 Progress Note for Hospitalist Service Patient seen and examined at bedside. No acute events overnight. Patient is POD#9 s/p right knee debridement. Patient reports no complaints. Lower extremity edema has improved. Denies fevers, chills, chest pain, shortness of breath, abdominal pain and acute leg pain at this time. Objective - Vital Signs/Intake and Output Vital Signs (last 24 hours): Temp Pulse Resp BP Pulse Ox 97.6 F 68 18 117/60 98 06/13/18 06:00 06/13/18 06:00 06/13/18 06:00 06/13/18 09:04 06/13/18 06:00 Intake and Output: 06/13/18 06/13/18 06:59 18:59 Intake Total 720 Output Total 600 Balance 120 - Medications Medications: Current Medications Acetaminophen (Tylenol 325mg Tab) 650 mg PO Q6H PRN PRN Reason: Pain, moderate (4-7) Last Admin: 06/12/18 22:02 Dose: 650 mg Alprazolam (Xanax) 0.25 mg PO DAILY PRN; Protocol PRN Reason: BEFORE HBO Last Admin: 06/13/18 11:03 Dose: 0.25 mg Apixaban (Eliquis) 2.5 mg PO BID [facility]; Protocol Last Admin: 06/13/18 09:04 Dose: 2.5 mg Atenolol (Tenormin) 25 mg PO BID [facility] Last Admin: 06/13/18 09:04 Dose: 25 mg Atorvastatin Calcium (Lipitor) 20 mg PO DIN [facility] Last Admin: 06/12/18 17:18 Dose: 20 mg Digoxin (Lanoxin) 0.25 mg PO 1400 [facility] Last Admin: 06/12/18 14:19 Dose: 0.25 mg Enoxaparin Sodium (Lovenox) 60 mg SC Q12H [facility]; Protocol Last Admin: 05/19/18 21:00 Dose: Not Given Furosemide (Lasix) 20 mg PO DAILY [facility] Last Admin: 06/13/18 09:04 Dose: 20 mg Meropenem (Merrem Iv 1 Gm Premix) 1 gm in 50 mls @ 100 mls/hr IVPB Q8 [facility]; Protocol Stop: 06/17/18 22:01 Last Admin: 06/13/18 05:21 Dose: 100 mls/hr Mirtazapine (Remeron) 15 mg PO HS [facility] Last Admin: 06/12/18 22:01 Dose: Not Given Nystatin (Nystop Topical Powder) 0 gm TOP BID [facility] Last Admin: 06/13/18 11:04 Dose: 1 appl Ondansetron HCl (Zofran Inj) 4 mg IVP Q6H PRN PRN Reason: Nausea/Vomiting Oxycodone/Acetaminophen (Percocet 2.5/325 Mg Tab) 1 tab PO DAILY PRN PRN Reason: Pain, moderate (4-7) Last Admin: 06/13/18 11:03 Dose: 1 tab Pantoprazole Sodium (Protonix Ec Tab) 40 mg PO 0600 [facility] Last Admin: 06/13/18 05:21 Dose: 40 mg Vitamin A (Vitamin A & D Oint Ud Foilpak) 1 ea TOP DAILY PRN PRN Reason: Dry skin - Labs Labs: 06/13/18 06:45 06/13/18 06:45 PT 13.5 SECONDS (9.4-12.5) H 06/04/18 05:40 INR 1.17 06/04/18 05:40 APTT 30.8 Seconds (25.1-36.5) 06/04/18 05:40 - Additional Findings Additional findings: - Constitutional Appears: Non-toxic, No Acute Distress, Pallor - Head Exam Head Exam: ATRAUMATIC, NORMOCEPHALIC - Eye Exam Eye Exam: EOMI, Normal appearance - ENT Exam ENT Exam: Mucous Membranes Moist, Small area of irritation behind R ear - Neck Exam Neck Exam: Full ROM, Normal Inspection - Respiratory Exam Respiratory Exam: Clear to Auscultation Bilateral, NORMAL BREATHING PATTERN. absent: Accessory Muscle Use - Cardiovascular Exam Cardiovascular Exam: REGULAR RHYTHM, +S1, +S2 - GI/Abdominal Exam GI & Abdominal Exam: Soft, Normal Bowel Sounds. absent: Distended, Firm, Guarding, Rigid, Tenderness, Organomegaly, Rebound - Extremities Exam Extremities Exam: Normal Capillary Refill. absent: Joint Swelling, Pedal Edema Additional comments: right knee immobilizer in place, wrapped in hard cast, mild TTP and edema of distal R foot, SCDs on L calf Improved swelling in R dorsal foot, but still 2+ pitting edema. 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 PO intake improving, continuing to taper PPN. PLT count improving, on Eliquis. No sign of bleeding. Advancing diet to advanced bite size. Currently tolerating dysphagia diet. Hyperbaric oxygen therapy trial planned for 05/30. Dr. Oliva and Dr. Watson continue to recommend her 30 day course of hyperbaric therapy, 2 hours each, M-F, which began on 05/30/18 which she tolerated. Per CM, unable to receive HBO if placement in [facility]. I&D in [place] 06/04 with podiatry/ortho. Wound cultures growing Pseudomonas, on Merrem day 6. 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 Mi) appreciated -CRP elevated b/c patient is ill; not an accurate assessment of the knee infl ammation -superficial wound cx: pantoea sensitive to many abx: giving bactroban, polymixin, bacitracin ointment - 06/13 will continue Merrem and continue to monitor clinically with Podiatry at the wound center during hyeprbaric oxygen therapy to see how long we need the antibiotics -Podiatry consulted. Recs appreciated. Ortho 05/29: At this time, given that patient has a periprosthetic infection involving skin, soft tissues and bone, pt would benefit from local wound debridement and hyperbaric therapy if no medical contraindications. If wound heals and infection eradicated, patient would be a candidate for reimplantation. MRI R knee 05/28 - difficult to exclude Osteo. No obvious bone destruction. Pain controlled. Doppler LLE - no DVT POD #9 debridement of necrotic skin Eliquis resumed 06/05 in AM Continue to recommend Rehab Began Lasix 20 mg PO daily for Leg edema, likely due to diastolic CHF after discussion with Patient life enrichment assistant Dr. Medrano. Patient refused pill yesterday and has refused for few prior days. Reviewed with patient need to take pill to cut down on lower extremity swelling, especially in light of recent surgery - Pseudomonas growing from final wound culture. ID has begun course of Merrem, which began night of 06/08 Hypokalemia 3.4, repleted with 40 mg K-dur monitor in AM lab Psuedohypocalcemia Ca corrected is 9.2 Alb 2.3, Ca 7.9 will continue to monitor Postauricular Irritation likely 2/2 glasses placement A&D ointment applied continue to monitor Anemia, Thrombocytopenia- resolved -pt s/p 1 unit prbc, given a dose of erythropoietin -hyperproliferative erythroid response -anemia of chronic disease -iron, b12, folate wnl -began Eliquis 05/26- will continue to monitor thrombocytopenia and increased risk of bleeding -Heme/Onc recs appreciated -medication induced thrombocytopenia; zyvox can cause cytopenias -zyvox dc'd -INR 1.27 -Transfused 1 unit PRBC 05/29 after Hgb dropped to 7.2. -began Eliquis 2.5 mg PO BID 05/26. Held 06/02 2/ upcoming I&D. Resume 06/05 AM - Hgb stable at 9.1 06/13, will continue to monitor Failure to thrive, dysphagia - improved -PPN has been tapered, but is being supplemented with Ensure. Tolerating diet. -Patient's family refusing PEG feeding at this time -Recent completion of 6 week course of Abx: zyvox and daptomycin discontinued -CT chest: no acute findings -CT head: no acute findings -EGD (04/2018): no esophageal pathology or signs of gastric outlet obstruction -repeat speech/swallow eval (05/23) -INFECTIOUS WASTE TECHNICIAN recommends trial puree consistency diet with extra gravy and thin liquids -aspiration/reflux precautions -GI recs appreciated -dysphagia, multifactorial - motility dysfunction, deconditioning -improved mentation and alertness -pt tolerating diet with no issues per nursing -neurology recommendation- no signs of neuromuscular disorder -Palliative recs: Jeannette LEVIN and I met with patients daughter's Isabel and Marii (both POA's). Family aware of mothers medical situation and poor prognosis. Benefits and burdens of feeding tube discussed at length. Daughters refusing PEG tube, in accordance of mother's AD wishes . Hospice services explained in detail. Questions answered. Daughters conflicted, state they are unable to stay home from their jobs in order to care for their mother. Daughter states that mother does not have the finances to pay for 24 hour aide or go to [place] facility. Atrial fibrillation - Digoxin 0.8 (05/16), Dig 1.4 (06/02) - Atenolol 25 mg PO daily - Holding parameters placed for digoxin and atenol for low HR - Eliquis 2.5 mg BID held 06/02 08/09 pending OR I&D, resumed 06/05 AM CAD - Aspirin held 06/[address] Medrano 08/09 high bleeding risk on Eliquis - Lipitor 20 mg PPx, Diet, Dispostion -DVT ppx: Eliquis, SCDs -Diet: regular -Dispo: patient clinically improving, tolerating po intake Social work: [facility] in [place] with transportation for HBO therapy, awaiting acceptance by daughters Patient update discussed with daughter Nina 06/10 in detail. Continue to encourage compliance with rehab. Percocet 2.5 mg to be given one hour before therapy to encourage participation. Low dose to avoid somnolence. Patient has not been taking Tylenol regularly and patient and daughter report adverse reaction to oxycodone by itself. Patient seen, case reviewed and plan approved by Dr. Hernandez. Praveen Oliveros, PGY-1 <Jay Hernandez - Last Filed: 06/13/18 15:11> Objective - Vital Signs/Intake and Output Vital Signs (last 24 hours): Temp Pulse Resp BP Pulse Ox 97.6 F 60 18 117/65 98 06/13/18 14:00 06/13/18 14:00 06/13/18 14:00 06/13/18 14:00 06/13/18 14:00 Intake and Output: 06/13/18 06/13/18 06:59 18:59 Intake Total 720 450 Output Total 600 Balance 120 450 - Medications Medications: Current Medications Acetaminophen (Tylenol 325mg Tab) 650 mg PO Q6H PRN PRN Reason: Pain, moderate (4-7) Last Admin: 06/12/18 22:02 Dose: 650 mg Alprazolam (Xanax) 0.25 mg PO DAILY PRN; Protocol PRN Reason: BEFORE HBO Last Admin: 06/13/18 11:03 Dose: 0.25 mg Apixaban (Eliquis) 2.5 mg PO BID [facility]; Protocol Last Admin: 06/13/18 09:04 Dose: 2.5 mg Atenolol (Tenormin) 25 mg PO BID [facility] Last Admin: 06/13/18 09:04 Dose: 25 mg Atorvastatin Calcium (Lipitor) 20 mg PO DIN [facility] Last Admin: 06/12/18 17:18 Dose: 20 mg Digoxin (Lanoxin) 0.25 mg PO 1400 [facility] Last Admin: 06/12/18 14:19 Dose: 0.25 mg Enoxaparin Sodium (Lovenox) 60 mg SC Q12H [facility]; Protocol Last Admin: 05/19/18 21:00 Dose: Not Given Furosemide (Lasix) 20 mg PO DAILY [facility] Last Admin: 06/13/18 09:04 Dose: 20 mg Meropenem (Merrem Iv 1 Gm Premix) 1 gm in 50 mls @ 100 mls/hr IVPB Q8 [facility]; Protocol Stop: 06/17/18 22:01 Last Admin: 06/13/18 05:21 Dose: 100 mls/hr Mirtazapine (Remeron) 15 mg PO HS [facility] Last Admin: 06/12/18 22:01 Dose: Not Given Nystatin (Nystop Topical Powder) 0 gm TOP BID [facility] Last Admin: 06/13/18 11:04 Dose: 1 appl Ondansetron HCl (Zofran Inj) 4 mg IVP Q6H PRN PRN Reason: Nausea/Vomiting Oxycodone/Acetaminophen (Percocet 2.5/325 Mg Tab) 1 tab PO DAILY PRN PRN Reason: Pain, moderate (4-7) Last Admin: 06/13/18 11:03 Dose: 1 tab Pantoprazole Sodium (Protonix Ec Tab) 40 mg PO 0600 [facility] Last Admin: 06/13/18 05:21 Dose: 40 mg Vitamin A (Vitamin A & D Oint Ud Foilpak) 1 ea TOP DAILY PRN PRN Reason: Dry skin - Labs Labs: 06/13/18 06:45 06/13/18 06:45 PT 13.5 SECONDS (9.4-12.5) H 06/04/18 05:40 INR 1.17 06/04/18 05:40 APTT 30.8 Seconds (25.1-36.5) 06/04/18 05:40 Attending/Attestation - Attestation I have personally seen and examined this patient.: Yes I have fully participated in the care of the patient.: Yes I have reviewed all pertinent clinical information, including history, physical exam and plan: Yes Notes (Text): 06/13/18 15:08 82 year old female with past medical history of afib previously on coumadin, CAD, hypertension, right TKA, complicated by VRE with prosthesis removal who presented with intractable vomiting and failure to thrive. This has resolved and patient is currently tolerating meals. ID, podiatry and orthopedics are following as well. Patient had completed 6 weeks course of antibiotics. MRI knee was reviewed and patient was started on hyperbaric therapy. She is s/p debridement of necrotic skin POD #9. Wound culture grew Pseudomonas Aeruginosa and she is currently on meropenem. Monitor cbc closely while patient is on eliquis for afib. Thrombocytopenia has resolved. She was started on po lasix for leg edema likely secondary to chronic diastolic CHF. Will replete and repeat potassium. graphic pre press trades worker note reviewed; d/c planning to [facility] this weekend. Patient is DNR/DNI. Jay Hernandez MD Hospitalist.
--- NOTE | 2018-06-13 13:57 | CP.PCM.PN ---
Subjective - Date & Time of Evaluation Date of Evaluation: 06/13/18 Time of Evaluation: 09:05 - Subjective Subjective: No fevers, not in distress, comfortable in bed. Objective - Vital Signs/Intake and Output Vital Signs (last 24 hours): Temp Pulse Resp BP Pulse Ox 97.6 F 68 18 117/60 98 06/13/18 06:00 06/13/18 06:00 06/13/18 06:00 06/13/18 09:04 06/13/18 06:00 Intake and Output: 06/13/18 06/13/18 06:59 18:59 Intake Total 720 Output Total 600 Balance 120 - Medications Medications: Current Medications Acetaminophen (Tylenol 325mg Tab) 650 mg PO Q6H PRN PRN Reason: Pain, moderate (4-7) Last Admin: 06/12/18 22:02 Dose: 650 mg Alprazolam (Xanax) 0.25 mg PO DAILY PRN; Protocol PRN Reason: BEFORE HBO Last Admin: 06/13/18 11:03 Dose: 0.25 mg Apixaban (Eliquis) 2.5 mg PO BID [facility]; Protocol Last Admin: 06/13/18 09:04 Dose: 2.5 mg Atenolol (Tenormin) 25 mg PO BID [facility] Last Admin: 06/13/18 09:04 Dose: 25 mg Atorvastatin Calcium (Lipitor) 20 mg PO DIN [facility] Last Admin: 06/12/18 17:18 Dose: 20 mg Digoxin (Lanoxin) 0.25 mg PO 1400 [facility] Last Admin: 06/12/18 14:19 Dose: 0.25 mg Enoxaparin Sodium (Lovenox) 60 mg SC Q12H [facility]; Protocol Last Admin: 05/19/18 21:00 Dose: Not Given Furosemide (Lasix) 20 mg PO DAILY [facility] Last Admin: 06/13/18 09:04 Dose: 20 mg Meropenem (Merrem Iv 1 Gm Premix) 1 gm in 50 mls @ 100 mls/hr IVPB Q8 [facility]; Protocol Stop: 06/17/18 22:01 Last Admin: 06/13/18 05:21 Dose: 100 mls/hr Mirtazapine (Remeron) 15 mg PO HS [facility] Last Admin: 06/12/18 22:01 Dose: Not Given Nystatin (Nystop Topical Powder) 0 gm TOP BID [facility] Last Admin: 06/13/18 11:04 Dose: 1 appl Ondansetron HCl (Zofran Inj) 4 mg IVP Q6H PRN PRN Reason: Nausea/Vomiting Oxycodone/Acetaminophen (Percocet 2.5/325 Mg Tab) 1 tab PO DAILY PRN PRN Reason: Pain, moderate (4-7) Last Admin: 06/13/18 11:03 Dose: 1 tab Pantoprazole Sodium (Protonix Ec Tab) 40 mg PO 0600 [facility] Last Admin: 06/13/18 05:21 Dose: 40 mg Vitamin A (Vitamin A & D Oint Ud Foilpak) 1 ea TOP DAILY PRN PRN Reason: Dry skin - Labs Labs: 06/13/18 06:45 06/13/18 06:45 PT 13.5 SECONDS (9.4-12.5) H 06/04/18 05:40 INR 1.17 06/04/18 05:40 APTT 30.8 Seconds (25.1-36.5) 06/04/18 05:40 - Constitutional Appears: Chronically Ill - Head Exam Head Exam: NORMAL INSPECTION - Respiratory Exam Respiratory Exam: Decreased Breath Sounds - Cardiovascular Exam Cardiovascular Exam: +S1, +S2 - GI/Abdominal Exam GI & Abdominal Exam: Soft. 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 Watson, growing Pseudomonas S/P nausea and vomiting with lactic acidosis, R/O due to meds R/O functional gastrointestinal issue - patient continues to improve clinically - patient without vomiting currently, tolerating some PO intake and patient continues to be awake and alert CAD S/P PCI HTN atrial fibrillation osteoarthritis S/P right knee replacement Plan she already has had 6 weeks of antibiotics (since 04/08/2018) for VRE the thrombocytopenia was probably multifactorial (including meds such as Zyvox and chronic illness - we are continuing to monitor platelet count and Hematology is on-board, patient also has low Hgb and there may be myelosuppression but the platelet count has now normalized) - discussed with Dr. Watson previously and patient - will continue Merrem and continue to monitor clinically with Podiatry at the wound center during hyeprbaric oxygen therapy to see how long we need the antibiotics
[2018-06-13] MEDS: Digoxin 250 mcg (0.25 mg) Tab PO SCH (15:00)
--- NOTE | 2018-06-13 15:19 | CP.PCM.PN ---
<Brown Jeronimo - Last Filed: 06/13/18 15:16> Subjective - Date & Time of Evaluation Date of Evaluation: 06/13/18 Time of Evaluation: 15:16 - Subjective Subjective: Podiatry progress note for Dr. Philip 82 y/o F patient 9 days S/P right knee incision and drainage with debridement of R knee infected wound and osteomyelitis. Patient was seen after her HBO session. Patient was Resting comfortably and NAD. She states she is still having some pain at her surgical site as of now. She denies any acute events overnight, She denies any pedal complaints, She denies N/V/F/C/SOB/CP. Objective - Vital Signs/Intake and Output Vital Signs (last 24 hours): Temp Pulse Resp BP Pulse Ox 97.6 F 60 18 117/65 98 06/13/18 14:00 06/13/18 14:00 06/13/18 14:00 06/13/18 14:00 06/13/18 14:00 Intake and Output: 06/13/18 06/13/18 06:59 18:59 Intake Total 720 450 Output Total 600 Balance 120 450 - Medications Medications: Current Medications Acetaminophen (Tylenol 325mg Tab) 650 mg PO Q6H PRN PRN Reason: Pain, moderate (4-7) Last Admin: 06/12/18 22:02 Dose: 650 mg Alprazolam (Xanax) 0.25 mg PO DAILY PRN; Protocol PRN Reason: BEFORE HBO Last Admin: 06/13/18 11:03 Dose: 0.25 mg Apixaban (Eliquis) 2.5 mg PO BID [facility]; Protocol Last Admin: 06/13/18 09:04 Dose: 2.5 mg Atenolol (Tenormin) 25 mg PO BID [facility] Last Admin: 06/13/18 09:04 Dose: 25 mg Atorvastatin Calcium (Lipitor) 20 mg PO DIN [facility] Last Admin: 06/12/18 17:18 Dose: 20 mg Digoxin (Lanoxin) 0.25 mg PO 1400 [facility] Last Admin: 06/12/18 14:19 Dose: 0.25 mg Enoxaparin Sodium (Lovenox) 60 mg SC Q12H [facility]; Protocol Last Admin: 05/19/18 21:00 Dose: Not Given Furosemide (Lasix) 20 mg PO DAILY [facility] Last Admin: 06/13/18 09:04 Dose: 20 mg Meropenem (Merrem Iv 1 Gm Premix) 1 gm in 50 mls @ 100 mls/hr IVPB Q8 [facility]; Protocol Stop: 06/17/18 22:01 Last Admin: 06/13/18 05:21 Dose: 100 mls/hr Mirtazapine (Remeron) 15 mg PO HS [facility] Last Admin: 06/12/18 22:01 Dose: Not Given Nystatin (Nystop Topical Powder) 0 gm TOP BID [facility] Last Admin: 06/13/18 11:04 Dose: 1 appl Ondansetron HCl (Zofran Inj) 4 mg IVP Q6H PRN PRN Reason: Nausea/Vomiting Oxycodone/Acetaminophen (Percocet 2.5/325 Mg Tab) 1 tab PO DAILY PRN PRN Reason: Pain, moderate (4-7) Last Admin: 06/13/18 11:03 Dose: 1 tab Pantoprazole Sodium (Protonix Ec Tab) 40 mg PO 0600 [facility] Last Admin: 06/13/18 05:21 Dose: 40 mg Vitamin A (Vitamin A & D Oint Ud Foilpak) 1 ea TOP DAILY PRN PRN Reason: Dry skin - Labs Labs: 06/13/18 06:45 06/13/18 06:45 PT 13.5 SECONDS (9.4-12.5) H 06/04/18 05:40 INR 1.17 06/04/18 05:40 APTT 30.8 Seconds (25.1-36.5) 06/04/18 05:40 - Constitutional Appears: Well, Non-toxic, No Acute Distress - Head Exam Head Exam: ATRAUMATIC, NORMOCEPHALIC - Extremities Exam Additional comments: R LE focused exam: Vasc: DP/PT faintly palpable. Cap refill< 3 sec to all digits. Temp gradient warm to warm. minimal edema to right knee. Mild Periwound erythema noted. Neuro: Gross and protective sensations are intact. Derm: A wound measures 12.5 cm X 4.5 cm X 0.5 cm with lateral aspect started to close down with some undermining and tracking. wound base is 20% fibrotic and 80% granular post debridement - improving. no drainage noted. No malodor. Mild periwound erythema noted. No clinical signs of infection noted MSK: Pain on palpating the periwound area. Muscle power around the knee joint couldn't be assessed due to pain and guarding. - Neurological Exam Neurological Exam: Alert, Awake, Oriented x3 Assessment and Plan - Assessment and Plan (Free Text) Assessment: 82 F patient 9 days S/P right knee incision and drainage with debridement of R knee infected wound and osteomyelitis Plan: Patient seen and evaluated at the bedside Discussed plan with attending Dr. Philip Charts, labs and vitals reviewed; Afebrile, No leukocytosis Wound culture: Pantonea Species Wound cleansed and dressed with xeroform, ABD, DSD, and SHANEKA Continue Multipodus boots while in bed Right knee x-ray - prosthesis removed, cement spacer in place Continue medical management per medicine and ID team LE venous duplex: No evidence of DVT R knee MRI (05/28): OM can't be excluded despite there is no obvious bony erosions Podiatry will continue to follow up the patient while in house <Thai Philip - Last Filed: 06/14/18 08:24> Objective - Vital Signs/Intake and Output Vital Signs (last 24 hours): Temp Pulse Resp BP Pulse Ox 98.2 F 66 16 111/67 95 06/14/18 06:00 06/14/18 06:00 06/14/18 06:00 06/14/18 06:00 06/14/18 06:00 Intake and Output: 06/14/18 06/14/18 06:59 18:59 Intake Total 540 Balance 540 - Medications Medications: Current Medications Acetaminophen (Tylenol 325mg Tab) 650 mg PO Q6H PRN PRN Reason: Pain, moderate (4-7) Last Admin: 06/13/18 21:55 Dose: 650 mg Alprazolam (Xanax) 0.25 mg PO DAILY PRN; Protocol PRN Reason: BEFORE HBO Last Admin: 06/13/18 11:03 Dose: 0.25 mg Apixaban (Eliquis) 2.5 mg PO BID [facility]; Protocol Last Admin: 06/13/18 17:29 Dose: 2.5 mg Atenolol (Tenormin) 25 mg PO BID [facility] Last Admin: 06/13/18 17:29 Dose: Not Given Atorvastatin Calcium (Lipitor) 20 mg PO DIN [facility] Last Admin: 06/13/18 17:29 Dose: 20 mg Digoxin (Lanoxin) 0.25 mg PO 1400 [facility] Last Admin: 06/13/18 15:00 Dose: Not Given Enoxaparin Sodium (Lovenox) 60 mg SC Q12H [facility]; Protocol Last Admin: 05/19/18 21:00 Dose: Not Given Furosemide (Lasix) 20 mg PO DAILY [facility] Last Admin: 06/13/18 09:04 Dose: 20 mg Mirtazapine (Remeron) 15 mg PO HS [facility] Last Admin: 06/12/18 22:01 Dose: Not Given Nystatin (Nystop Topical Powder) 0 gm TOP BID [facility] Last Admin: 06/13/18 17:35 Dose: 1 appl Ondansetron HCl (Zofran Inj) 4 mg IVP Q6H PRN PRN Reason: Nausea/Vomiting Oxycodone/Acetaminophen (Percocet 2.5/325 Mg Tab) 1 tab PO DAILY PRN PRN Reason: Pain, moderate (4-7) Last Admin: 06/13/18 11:03 Dose: 1 tab Pantoprazole Sodium (Protonix Ec Tab) 40 mg PO 0600 [facility] Last Admin: 06/14/18 05:26 Dose: 40 mg Vitamin A (Vitamin A & D Oint Ud Foilpak) 1 ea TOP DAILY PRN PRN Reason: Dry skin - Labs Labs: 06/14/18 06:40 06/14/18 06:40 PT 13.5 SECONDS (9.4-12.5) H 06/04/18 05:40 INR 1.17 06/04/18 05:40 APTT 30.8 Seconds (25.1-36.5) 06/04/18 05:40 Attending/Attestation - Attestation I have personally seen and examined this patient.: Yes I have fully participated in the care of the patient.: Yes I have reviewed all pertinent clinical information, including history, physical exam and plan: Yes
[2018-06-14] MEDS: Pantoprazole 40 mg EC Tab PO SCH (05:26)
[2018-06-14 07:59] LABS: BASO # 0.04 K/mm3 (0.0-2.0); BASO % 0.6 % (0.0-3.0); EOS # 0.6 (0.0-0.7); EOS % 10.1 % (1.5-5.0); GRAN # 3.45 (1.4-6.5); HEMOGLOBIN 9.2 g/dL (12.0-16.0); LYMPH # 1.5 (1.2-3.4); LYMPH % 24.5 % (22.0-35.0); MEAN CELL VOLUME 89.1 fl (80.0-105.0); MEAN CORPUSCULAR HEMOGLOBIN 27.9 pg (25.0-35.0); MEAN CORPUSCULAR HGB CONC 31.3 g/dl (31.0-37.0); MEAN PLATELET VOLUME 10.4 fl (7.0-11.0); MONO # 0.5 (0.1-0.6); MONO % 8.8 % (1.0-6.0); RBC 3.3 10^6/uL (3.5-6.1); RED CELL DISTRIBUTION WIDTH 17.8 % (11.5-14.5); WHITE BLOOD COUNT 6.2 10^3/uL (4.5-11.0)
[2018-06-14 08:21] LABS: BLOOD UREA NITROGEN 7 mg/dL (7-21); GFR NON-AFRICAN AMERICAN > 60
--- NOTE | 2018-06-14 10:03 | CP.PCM.PN ---
Subjective - Date & Time of Evaluation Date of Evaluation: 06/14/18 Time of Evaluation: 09:55 - Subjective Subjective: Patient seen and examined. Patient has been doing hyperbaric 5x/week. Going to [facility] tomorrow morning, where she will continue the hyperbaric therapy. VSS WBC 6.2 HGB 9.2 R knee: dressings intact. Dressings were removed to evaluate wound. Wound appears to be improving. Most lateral aspect of the middle incision opened but starting to close down. Appears clean. Most proximal and distal incision site intact. No active drainage. Mild periwound erythema. Thigh and calf are soft and nontender. Grossly NVI distally s/p explant of infected RTKA with debridement of right knee cont dressing changes cont abx per ID Cont hyperbaric therapy Will follow patient Discussed above with Dr. Watson, agrees with above Objective - Vital Signs/Intake and Output Vital Signs (last 24 hours): Temp Pulse Resp BP Pulse Ox 98.2 F 66 16 111/67 95 06/14/18 06:00 06/14/18 06:00 06/14/18 06:00 06/14/18 06:00 06/14/18 06:00 Intake and Output: 06/14/18 06/14/18 06:59 18:59 Intake Total 540 Balance 540 - Medications Medications: Current Medications Acetaminophen (Tylenol 325mg Tab) 650 mg PO Q6H PRN PRN Reason: Pain, moderate (4-7) Last Admin: 06/13/18 21:55 Dose: 650 mg Alprazolam (Xanax) 0.25 mg PO DAILY PRN; Protocol PRN Reason: BEFORE HBO Last Admin: 06/13/18 11:03 Dose: 0.25 mg Apixaban (Eliquis) 2.5 mg PO BID [facility]; Protocol Last Admin: 06/13/18 17:29 Dose: 2.5 mg Atenolol (Tenormin) 25 mg PO BID [facility] Last Admin: 06/13/18 17:29 Dose: Not Given Atorvastatin Calcium (Lipitor) 20 mg PO DIN [facility] Last Admin: 06/13/18 17:29 Dose: 20 mg Digoxin (Lanoxin) 0.25 mg PO 1400 [facility] Last Admin: 06/13/18 15:00 Dose: Not Given Enoxaparin Sodium (Lovenox) 60 mg SC Q12H [facility]; Protocol Last Admin: 05/19/18 21:00 Dose: Not Given Furosemide (Lasix) 20 mg PO DAILY [facility] Last Admin: 06/13/18 09:04 Dose: 20 mg Mirtazapine (Remeron) 15 mg PO HS [facility] Last Admin: 06/12/18 22:01 Dose: Not Given Nystatin (Nystop Topical Powder) 0 gm TOP BID [facility] Last Admin: 06/13/18 17:35 Dose: 1 appl Ondansetron HCl (Zofran Inj) 4 mg IVP Q6H PRN PRN Reason: Nausea/Vomiting Oxycodone/Acetaminophen (Percocet 2.5/325 Mg Tab) 1 tab PO DAILY PRN PRN Reason: Pain, moderate (4-7) Last Admin: 06/13/18 11:03 Dose: 1 tab Pantoprazole Sodium (Protonix Ec Tab) 40 mg PO 0600 [facility] Last Admin: 06/14/18 05:26 Dose: 40 mg Vitamin A (Vitamin A & D Oint Ud Foilpak) 1 ea TOP DAILY PRN PRN Reason: Dry skin - Labs Labs: 06/14/18 06:40 06/14/18 06:40 PT 13.5 SECONDS (9.4-12.5) H 06/04/18 05:40 INR 1.17 06/04/18 05:40 APTT 30.8 Seconds (25.1-36.5) 06/04/18 05:40
--- NOTE | 2018-06-14 10:12 | CP.PCM.PN ---
<JulianoGavinobullconor - Last Filed: 06/14/18 10:10> Subjective - Date & Time of Evaluation Date of Evaluation: 06/14/18 Time of Evaluation: 10:10 - Subjective Subjective: Podiatry progress note for Dr. Philip 82 y/o F patient 10 days S/P right knee incision and drainage with debridement of R knee infected wound and osteomyelitis. Patient was resting comfortably and NAD. She states she is still having some pain at her surgical site as of now. She denies any acute events overnight, She denies any pedal complaints, She denies N/V/F/C/SOB/CP. Objective - Vital Signs/Intake and Output Vital Signs (last 24 hours): Temp Pulse Resp BP Pulse Ox 98.2 F 66 16 111/67 95 06/14/18 06:00 06/14/18 06:00 06/14/18 06:00 06/14/18 06:00 06/14/18 06:00 Intake and Output: 06/14/18 06/14/18 06:59 18:59 Intake Total 540 Balance 540 - Medications Medications: Current Medications Acetaminophen (Tylenol 325mg Tab) 650 mg PO Q6H PRN PRN Reason: Pain, moderate (4-7) Last Admin: 06/13/18 21:55 Dose: 650 mg Alprazolam (Xanax) 0.25 mg PO DAILY PRN; Protocol PRN Reason: BEFORE HBO Last Admin: 06/13/18 11:03 Dose: 0.25 mg Apixaban (Eliquis) 2.5 mg PO BID [facility]; Protocol Last Admin: 06/13/18 17:29 Dose: 2.5 mg Atenolol (Tenormin) 25 mg PO BID [facility] Last Admin: 06/13/18 17:29 Dose: Not Given Atorvastatin Calcium (Lipitor) 20 mg PO DIN [facility] Last Admin: 06/13/18 17:29 Dose: 20 mg Digoxin (Lanoxin) 0.25 mg PO 1400 [facility] Last Admin: 06/13/18 15:00 Dose: Not Given Enoxaparin Sodium (Lovenox) 60 mg SC Q12H [facility]; Protocol Last Admin: 05/19/18 21:00 Dose: Not Given Furosemide (Lasix) 20 mg PO DAILY [facility] Last Admin: 06/13/18 09:04 Dose: 20 mg Mirtazapine (Remeron) 15 mg PO HS [facility] Last Admin: 06/12/18 22:01 Dose: Not Given Nystatin (Nystop Topical Powder) 0 gm TOP BID [facility] Last Admin: 06/13/18 17:35 Dose: 1 appl Ondansetron HCl (Zofran Inj) 4 mg IVP Q6H PRN PRN Reason: Nausea/Vomiting Oxycodone/Acetaminophen (Percocet 2.5/325 Mg Tab) 1 tab PO DAILY PRN PRN Reason: Pain, moderate (4-7) Last Admin: 06/13/18 11:03 Dose: 1 tab Pantoprazole Sodium (Protonix Ec Tab) 40 mg PO 0600 [facility] Last Admin: 06/14/18 05:26 Dose: 40 mg Vitamin A (Vitamin A & D Oint Ud Foilpak) 1 ea TOP DAILY PRN PRN Reason: Dry skin - Labs Labs: 06/14/18 06:40 06/14/18 06:40 PT 13.5 SECONDS (9.4-12.5) H 06/04/18 05:40 INR 1.17 06/04/18 05:40 APTT 30.8 Seconds (25.1-36.5) 06/04/18 05:40 - Constitutional Appears: Well, Non-toxic, No Acute Distress - Extremities Exam Additional comments: R LE focused exam: Vasc: DP/PT faintly palpable. Cap refill< 3 sec to all digits. Temp gradient warm to warm. minimal edema to right knee. Mild Periwound erythema noted. Neuro: Gross and protective sensations are intact. Derm: A wound measures 12.5 cm X 4.5 cm X 0.5 cm with lateral aspect started to close down with some undermining and tracking. wound base is 20% fibrotic and 80% granular post debridement - improving. no drainage noted. No malodor. Mild periwound erythema noted. No clinical signs of infection noted MSK: Pain on palpating the periwound area. Muscle power around the knee joint couldn't be assessed due to pain and guarding. - Neurological Exam Neurological Exam: Alert, Awake, Oriented x3 - Psychiatric Exam Psychiatric exam: Normal Affect, Normal Mood Assessment and Plan - Assessment and Plan (Free Text) Assessment: 82 F patient 10 days S/P right knee incision and drainage with debridement of R knee infected wound and osteomyelitis Plan: Patient seen and evaluated at the bedside Discussed plan with attending Dr. Philip Charts, labs and vitals reviewed; Afebrile, No leukocytosis Wound culture: Pantonea Species Wound cleansed and dressed with xeroform, ABD, DSD, and SHANEKA Continue Multipodus boots while in bed Right knee x-ray - prosthesis removed, cement spacer in place Continue medical management per medicine and ID team LE venous duplex: No evidence of DVT R knee MRI (05/28): OM can't be excluded despite there is no obvious bony erosions Podiatry will continue to follow up the patient while in house <Thai Philip - Last Filed: 06/16/18 10:22> Objective - Vital Signs/Intake and Output Vital Signs (last 24 hours): Temp Pulse Resp BP Pulse Ox 97.2 F L 62 18 118/57 L 97 06/15/18 06:00 06/15/18 11:06 06/15/18 06:00 06/15/18 11:06 06/15/18 06:00 - Labs Labs: 06/15/18 06:00 06/15/18 06:00 PT 13.5 SECONDS (9.4-12.5) H 06/04/18 05:40 INR 1.17 06/04/18 05:40 APTT 30.8 Seconds (25.1-36.5) 06/04/18 05:40 Attending/Attestation - Attestation I have personally seen and examined this patient.: Yes I have fully participated in the care of the patient.: Yes I have reviewed all pertinent clinical information, including history, physical exam and plan: Yes
[2018-06-14] MEDS: Nystatin 100,000 Units/gm Topical Pow(15 gm) TOP SCH ×2 (10:38→17:48)
--- NOTE | 2018-06-14 13:08 | PN ---
DATE: 06/14/2018 SUBJECTIVE: She is comfortable in bed, in no acute distress, still not ambulating. Status post drainage and incision of the right knee infected with osteomyelitis. Wound healing now. No events overnight. Hemoglobin and hematocrit has been stable. Suggested several units of blood transfusion during hospitalization. PHYSICAL EXAMINATION: GENERAL: Comfortable in bed, no acute distress. VITAL SIGNS: Temperature 98.2, heart rate 66 per minute, respiratory rate 18 per minute, blood pressure 110/70, pulse ox 95% on room air. HEENT: Pallor positive. NECK: No lymphadenopathy. CHEST: Air entry present and equal bilaterally. No added sound. CARDIOVASCULAR: S1 and S2 normal. No murmur, no gallop. ABDOMEN: Soft, nontender. No hepatosplenomegaly. EXTREMITY: No edema. MEDICATIONS: Reviewed. Tylenol 650 every 4 hours p.r.n., Xanax 0.25 mg p.r.n., Eliquis 2.5 mg p.o. b.i.d., atenolol 25 mg p.o. b.i.d., Lipitor 20 mg daily, Protonix 40 mg daily. ASSESSMENT: 1. Severe anemia related to chronic disease. 2. Sepsis, right knee. 3. Wound revision . 4. History of deep venous thrombosis, currently on anticoagulation with Eliquis. 5. Anemia. Hemoglobin and hematocrit stable. No need for blood transfusion today. PLAN: She has received Aranesp also one dose. Thank you Dr. Hernandez for allowing us to participate in Ms. Segura's care. Brianna Pritchard MD [id number]
--- NOTE | 2018-06-14 15:08 | CP.PCM.PN ---
<Jr Hill - Last Filed: 06/14/18 15:03> Subjective - Date & Time of Evaluation Date of Evaluation: 06/14/18 Time of Evaluation: 15:04 - Subjective Subjective: Jr Hill, PGY-1, Internal Medicine Progress Note for Dr. Hernandez Patient seen and evaluated at bedside. Patient had no acute overnight events. Patient reported right leg pain earlier today but now denies any symptoms including leg pain, numbness/tinging, chest pain, heart palpitations, shortness of breath, nausea, vomiting, constipation, diarrhea, dysuria, and hematuria. 12- point ROS was negative except for what was mentioned above Objective - Vital Signs/Intake and Output Vital Signs (last 24 hours): Temp Pulse Resp BP Pulse Ox 98.4 F 70 16 111/61 95 06/14/18 14:00 06/14/18 14:00 06/14/18 14:00 06/14/18 14:00 06/14/18 14:00 Intake and Output: 06/14/18 06/14/18 06:59 18:59 Intake Total 540 Balance 540 - Medications Medications: Current Medications Acetaminophen (Tylenol 325mg Tab) 650 mg PO Q6H PRN PRN Reason: Pain, moderate (4-7) Last Admin: 06/14/18 10:38 Dose: 650 mg Alprazolam (Xanax) 0.25 mg PO DAILY PRN; Protocol PRN Reason: BEFORE HBO Last Admin: 06/13/18 11:03 Dose: 0.25 mg Apixaban (Eliquis) 2.5 mg PO BID [facility]; Protocol Last Admin: 06/14/18 10:39 Dose: 2.5 mg Atenolol (Tenormin) 25 mg PO BID [facility] Last Admin: 06/14/18 10:37 Dose: 25 mg Atorvastatin Calcium (Lipitor) 20 mg PO DIN [facility] Last Admin: 06/13/18 17:29 Dose: 20 mg Digoxin (Lanoxin) 0.25 mg PO 1400 [facility] Last Admin: 06/13/18 15:00 Dose: Not Given Enoxaparin Sodium (Lovenox) 60 mg SC Q12H [facility]; Protocol Last Admin: 05/19/18 21:00 Dose: Not Given Furosemide (Lasix) 20 mg PO DAILY [facility] Last Admin: 06/14/18 10:37 Dose: 20 mg Mirtazapine (Remeron) 15 mg PO HS [facility] Last Admin: 06/12/18 22:01 Dose: Not Given Nystatin (Nystop Topical Powder) 0 gm TOP BID [facility] Last Admin: 06/14/18 10:38 Dose: 1 appl Ondansetron HCl (Zofran Inj) 4 mg IVP Q6H PRN PRN Reason: Nausea/Vomiting Oxycodone/Acetaminophen (Percocet 2.5/325 Mg Tab) 1 tab PO DAILY PRN PRN Reason: Pain, moderate (4-7) Last Admin: 06/13/18 11:03 Dose: 1 tab Pantoprazole Sodium (Protonix Ec Tab) 40 mg PO 0600 [facility] Last Admin: 06/14/18 05:26 Dose: 40 mg Vitamin A (Vitamin A & D Oint Ud Foilpak) 1 ea TOP DAILY PRN PRN Reason: Dry skin - Labs Labs: 06/14/18 06:40 06/14/18 06:40 PT 13.5 SECONDS (9.4-12.5) H 06/04/18 05:40 INR 1.17 06/04/18 05:40 APTT 30.8 Seconds (25.1-36.5) 06/04/18 05:40 - Constitutional Appears: Well, Non-toxic, No Acute Distress - Head Exam Head Exam: ATRAUMATIC, NORMAL INSPECTION, NORMOCEPHALIC - Eye Exam Eye Exam: EOMI Pupil Exam: PERRL - Respiratory Exam Respiratory Exam: Clear to Ausculation Bilateral, NORMAL BREATHING PATTERN - Cardiovascular Exam Cardiovascular Exam: Irregular Rhythm - GI/Abdominal Exam GI & Abdominal Exam: Soft, Normal Bowel Sounds. 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 PO intake is improving. Plan: Right TKA with prothesis removal and necrotic wound infection positive for Pantoea and Pseudomonas -Dr. Mi recommends continuing Merrem day 6 and to monitor clinically with Podiatry at the wound center during hyperbaric oxygen therapy to see how long we need the antibiotics. -Patient is postop day 10 from debridement of necrotic skin. -Right knee culture grew Pantoea. Right knee soft tissue culture grew Pseudomonas. Rectal fluid grew VRE -Urine culture was negative. Blood culture was negative for 5 days starting from 05/16 Failure to Thrive-improved -PPN has been stopped as patient is on regular diet and appetite has improved. -Patient's family refusing PEG tube feeding at this time. -Swallow evaluation on 05/23: puree consistency diet with extra gravy and thin liquids recommended. Aspiration/reflux precautions -Palliative recommendations: daughters refusing PEG tube in accordance with patient's wishes. Chronic Diastolic CHF -PO lasix for leg edema Atrial Fibrillation -Continue with atenolol, diagoxin. -Eliquis 2.5 mg BID Normocytic Anemia -Hgb: 9.2 -Patient at baseline hemoglobin -Consider transfusion is Hgb<7 Pseudohypocalcemia -Ca: 8, last albumin was 2.3 -Corrected calcium is 9.36 GI prophylaxis: protonix 40 mg daily DVT prophylaxis: eliquis 2.5 BID Disposition: Patient is refusing PEG tube. Patient will be be transferred to subacute rehabilitation on discharge <Jay Hernandez - Last Filed: 06/15/18 06:44> Objective - Vital Signs/Intake and Output Vital Signs (last 24 hours): Temp Pulse Resp BP Pulse Ox 98.5 F 60 19 113/53 L 96 06/14/18 22:17 06/14/18 22:17 06/14/18 22:17 06/14/18 22:17 06/14/18 22:17 Intake and Output: 06/14/18 06/15/18 18:59 06:59 Intake Total 240 Output Total 300 Balance -60 - Medications Medications: Current Medications Acetaminophen (Tylenol 325mg Tab) 650 mg PO Q6H PRN PRN Reason: Pain, moderate (4-7) Last Admin: 06/14/18 10:38 Dose: 650 mg Alprazolam (Xanax) 0.25 mg PO DAILY PRN; Protocol PRN Reason: BEFORE HBO Last Admin: 06/13/18 11:03 Dose: 0.25 mg Apixaban (Eliquis) 2.5 mg PO BID [facility]; Protocol Last Admin: 06/14/18 17:56 Dose: 2.5 mg Atenolol (Tenormin) 25 mg PO BID [facility] Last Admin: 06/14/18 17:56 Dose: 25 mg Atorvastatin Calcium (Lipitor) 20 mg PO DIN [facility] Last Admin: 06/14/18 17:47 Dose: 20 mg Digoxin (Lanoxin) 0.25 mg PO 1400 [facility] Last Admin: 06/14/18 15:19 Dose: 0.25 mg Enoxaparin Sodium (Lovenox) 60 mg SC Q12H [facility]; Protocol Last Admin: 05/19/18 21:00 Dose: Not Given Furosemide (Lasix) 20 mg PO DAILY [facility] Last Admin: 06/14/18 10:37 Dose: 20 mg Meropenem (Merrem Iv 1 Gm Premix) 1 gm in 50 mls @ 100 mls/hr IVPB Q8 [facility]; Protocol Stop: 06/23/18 23:01 Last Admin: 06/15/18 06:24 Dose: 100 mls/hr Mirtazapine (Remeron) 15 mg PO HS [facility] Last Admin: 06/14/18 22:47 Dose: Not Given Nystatin (Nystop Topical Powder) 0 gm TOP BID [facility] Last Admin: 06/14/18 17:48 Dose: 1 appl Ondansetron HCl (Zofran Inj) 4 mg IVP Q6H PRN PRN Reason: Nausea/Vomiting Last Admin: 06/14/18 17:48 Dose: 4 mg Oxycodone/Acetaminophen (Percocet 2.5/325 Mg Tab) 1 tab PO DAILY PRN PRN Reason: Pain, moderate (4-7) Last Admin: 06/13/18 11:03 Dose: 1 tab Pantoprazole Sodium (Protonix Ec Tab) 40 mg PO 0600 [facility] Last Admin: 06/15/18 06:25 Dose: 40 mg Vitamin A (Vitamin A & D Oint Ud Foilpak) 1 ea TOP DAILY PRN PRN Reason: Dry skin - Labs Labs: 06/14/18 06:40 06/14/18 06:40 PT 13.5 SECONDS (9.4-12.5) H 06/04/18 05:40 INR 1.17 06/04/18 05:40 APTT 30.8 Seconds (25.1-36.5) 06/04/18 05:40 Attending/Attestation - Attestation I have personally seen and examined this patient.: Yes I have fully participated in the care of the patient.: Yes I have reviewed all pertinent clinical information, including history, physical exam and plan: Yes Notes (Text): 06/14/18 82 year old female with past medical history of afib previously on coumadin, CAD, hypertension, right TKA, complicated by VRE with prosthesis removal who presented with intractable vomiting and failure to thrive. This has resolved and patient is currently tolerating meals. ID, podiatry and orthopedics are following as well. Patient had completed 6 weeks course of antibiotics. MRI knee was reviewed and patient was started on hyperbaric therapy. She is s/p debridement of necrotic skin POD #10. Wound culture grew Pseudomonas Aeruginosa and she is currently on meropenem. Monitor cbc closely while patient is on eliquis for afib. Thrombocytopenia has resolved. She was started on po lasix for leg edema likely secondary to chronic diastolic CHF. D/c planning to [facility] tomorrow. Patient is DNR/DNI. Jay Hernandez MD Hospitalist.
[2018-06-14] MEDS: Digoxin 250 mcg (0.25 mg) Tab PO SCH (15:19)
[2018-06-14 15:20] VITALS: PULSE 80
[2018-06-15] MEDS: Meropenem IV 1 gm in NS 1 GM/50 ML BAG IVPB SCH ×2 (00:07→06:24)
--- NOTE | 2018-06-15 01:43 | PN ---
DATE: 06/14/2018 SUBJECTIVE: The patient is seen in bed, in no acute distress and nontoxic. PHYSICAL EXAMINATION VITAL SIGNS: Temperature is 98, blood pressure is 113/50, and respiratory rate of 19. HEENT: Unremarkable. NECK: Supple. LUNGS: Have decreased breath sounds. HEART: Normal S1 and S2. ABDOMEN: Soft. LABORATORY DATA: Reveals a white count of 6.2 and hemoglobin of 9. Chemistries reveal a BUN of 7 and creatinine of 0.5. Urinalysis is noted. 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 The patient is overall improving. Review of orders reveals the patient's meropenem has . We will continue meropenem for now. We will restart meropenem and can make further plans of possible surgery. Dominick Simeon MD
[2018-06-15] MEDS: Pantoprazole 40 mg EC Tab PO SCH (06:25)
[2018-06-15 07:00] LABS: BLOOD UREA NITROGEN 8 mg/dL (7-21); CALCIUM 8.1 mg/dL (8.4-10.5); GFR NON-AFRICAN AMERICAN > 60
[2018-06-15 07:11] LABS: BASO # 0.06 K/mm3 (0.0-2.0); BASO % 0.8 % (0.0-3.0); EOS # 0.6 (0.0-0.7); EOS % 8.9 % (1.5-5.0); GRAN # 3.95 (1.4-6.5); GRAN % 54.7 % (50.0-68.0); HEMOGLOBIN 9.2 g/dL (12.0-16.0); LYMPH % 27.2 % (22.0-35.0); MEAN CELL VOLUME 88.6 fl (80.0-105.0); MEAN CORPUSCULAR HEMOGLOBIN 27.6 pg (25.0-35.0); MEAN CORPUSCULAR HGB CONC 31.2 g/dl (31.0-37.0); MEAN PLATELET VOLUME 10.1 fl (7.0-11.0); MONO # 0.6 (0.1-0.6); MONO % 8.4 % (1.0-6.0); RBC 3.33 10^6/uL (3.5-6.1); RED CELL DISTRIBUTION WIDTH 17.7 % (11.5-14.5); WHITE BLOOD COUNT 7.2 10^3/uL (4.5-11.0)
[2018-06-15 07:20] VITALS: BP 118/57; RESP 18; TEMP 97.2; O2SAT 97
[2018-06-15] MEDS ORDERED: Potassium Chloride 40 mEq/30 ml LIQ UD PO ONE (07:35)
[2018-06-15] MEDS ORDERED: Cholecalciferol 1,000 INTLU TAB PO SCH (10:00)
--- NOTE | 2018-06-15 10:41 | CP.PCM.PN ---
Subjective - Date & Time of Evaluation Date of Evaluation: 06/15/18 Time of Evaluation: 10:00 - Subjective Subjective: SUBJECTIVE: She is comfortable in bed, in no acute distress, still not ambulating. Status post drainage and incision of the right knee infected with osteomyelitis. Wound healing now. No events overnight. Hemoglobin and hematocrit has been stable. received several units of blood transfusion during hospitalization. PHYSICAL EXAMINATION: GENERAL: Comfortable in bed, no acute distress. VITAL SIGNS: reviewed. HEENT: Pallor positive. NECK: No lymphadenopathy. CHEST: Air entry present and equal bilaterally. No added sound. CARDIOVASCULAR: S1 and S2 normal. No murmur, no gallop. ABDOMEN: Soft, nontender. No hepatosplenomegaly. EXTREMITY: No edema. MEDICATIONS: Reviewed. ASSESSMENT: 1. Severe anemia related to chronic disease. 2. Sepsis, right knee. 3. Wound revision right knee 4. History of deep venous thrombosis, currently on anticoagulation with Eliquis. 5. Anemia. Hemoglobin and hematocrit stable. No need for blood transfusion today. PLAN: She has received Aranesp also one dose. Thank you Dr. Hernandez for allowing us to participate in Ms. Seguar's care. Brianna Pritchard MD Objective - Vital Signs/Intake and Output Vital Signs (last 24 hours): Temp Pulse Resp BP Pulse Ox 97.2 F L 57 L 18 118/57 L 97 06/15/18 06:00 06/15/18 06:00 06/15/18 06:00 06/15/18 09:49 06/15/18 06:00 Intake and Output: 06/15/18 06/15/18 06:59 18:59 Intake Total 240 Output Total 300 Balance -60 - Medications Medications: Current Medications Acetaminophen (Tylenol 325mg Tab) 650 mg PO Q6H PRN PRN Reason: Pain, moderate (4-7) Last Admin: 06/15/18 09:45 Dose: 650 mg Alprazolam (Xanax) 0.25 mg PO DAILY PRN; Protocol PRN Reason: BEFORE HBO Last Admin: 06/13/18 11:03 Dose: 0.25 mg Apixaban (Eliquis) 2.5 mg PO BID [facility]; Protocol Last Admin: 06/15/18 09:50 Dose: 2.5 mg Atenolol (Tenormin) 25 mg PO BID [facility] Last Admin: 06/14/18 17:56 Dose: 25 mg Atorvastatin Calcium (Lipitor) 20 mg PO DIN [facility] Last Admin: 06/14/18 17:47 Dose: 20 mg Cholecalciferol (Vitamin D) 2,000 intlu PO DAILY [facility] Last Admin: 06/15/18 09:50 Dose: 2,000 intlu Digoxin (Lanoxin) 0.25 mg PO 1400 [facility] Last Admin: 06/14/18 15:19 Dose: 0.25 mg Enoxaparin Sodium (Lovenox) 60 mg SC Q12H [facility]; Protocol Last Admin: 05/19/18 21:00 Dose: Not Given Furosemide (Lasix) 20 mg PO DAILY [facility] Last Admin: 06/15/18 09:49 Dose: 20 mg Meropenem (Merrem Iv 1 Gm Premix) 1 gm in 50 mls @ 100 mls/hr IVPB Q8 [facility]; Protocol Stop: 06/23/18 23:01 Last Admin: 06/15/18 06:24 Dose: 100 mls/hr Mirtazapine (Remeron) 15 mg PO HS [facility] Last Admin: 06/14/18 22:47 Dose: Not Given Nystatin (Nystop Topical Powder) 0 gm TOP BID [facility] Last Admin: 06/14/18 17:48 Dose: 1 appl Ondansetron HCl (Zofran Inj) 4 mg IVP Q6H PRN PRN Reason: Nausea/Vomiting Last Admin: 06/14/18 17:48 Dose: 4 mg Oxycodone/Acetaminophen (Percocet 2.5/325 Mg Tab) 1 tab PO DAILY PRN PRN Reason: Pain, moderate (4-7) Last Admin: 06/13/18 11:03 Dose: 1 tab Pantoprazole Sodium (Protonix Ec Tab) 40 mg PO 0600 [facility] Last Admin: 06/15/18 06:25 Dose: 40 mg Vitamin A (Vitamin A & D Oint Ud Foilpak) 1 ea TOP DAILY PRN PRN Reason: Dry skin - Labs Labs: 06/15/18 06:00 06/15/18 06:00 PT 13.5 SECONDS (9.4-12.5) H 06/04/18 05:40 INR 1.17 06/04/18 05:40 APTT 30.8 Seconds (25.1-36.5) 06/04/18 05:40
--- NOTE | 2018-06-15 10:47 | CP.PCM.PN ---
<Naeem Henao - Last Filed: 06/15/18 10:45> Subjective - Date & Time of Evaluation Date of Evaluation: 06/15/18 Time of Evaluation: 10:45 - Subjective Subjective: Podiatry progress note for Dr. Philip 82 y/o F patient 11 days S/P right knee incision and drainage with debridement of R knee infected wound and osteomyelitis. Patient was resting comfortably and NAD. She states she is still having some pain at her surgical site when someone moves it. She denies any acute events overnight, She denies any pedal complaints, She denies N/V/F/C/SOB/CP. Objective - Vital Signs/Intake and Output Vital Signs (last 24 hours): Temp Pulse Resp BP Pulse Ox 97.2 F L 57 L 18 118/57 L 97 06/15/18 06:00 06/15/18 06:00 06/15/18 06:00 06/15/18 09:49 06/15/18 06:00 Intake and Output: 06/15/18 06/15/18 06:59 18:59 Intake Total 240 Output Total 300 Balance -60 - Medications Medications: Current Medications Acetaminophen (Tylenol 325mg Tab) 650 mg PO Q6H PRN PRN Reason: Pain, moderate (4-7) Last Admin: 06/15/18 09:45 Dose: 650 mg Alprazolam (Xanax) 0.25 mg PO DAILY PRN; Protocol PRN Reason: BEFORE HBO Last Admin: 06/13/18 11:03 Dose: 0.25 mg Apixaban (Eliquis) 2.5 mg PO BID [facility]; Protocol Last Admin: 06/15/18 09:50 Dose: 2.5 mg Atenolol (Tenormin) 25 mg PO BID [facility] Last Admin: 06/14/18 17:56 Dose: 25 mg Atorvastatin Calcium (Lipitor) 20 mg PO DIN [facility] Last Admin: 06/14/18 17:47 Dose: 20 mg Cholecalciferol (Vitamin D) 2,000 intlu PO DAILY [facility] Last Admin: 06/15/18 09:50 Dose: 2,000 intlu Digoxin (Lanoxin) 0.25 mg PO 1400 [facility] Last Admin: 06/14/18 15:19 Dose: 0.25 mg Enoxaparin Sodium (Lovenox) 60 mg SC Q12H [facility]; Protocol Last Admin: 05/19/18 21:00 Dose: Not Given Furosemide (Lasix) 20 mg PO DAILY [facility] Last Admin: 06/15/18 09:49 Dose: 20 mg Meropenem (Merrem Iv 1 Gm Premix) 1 gm in 50 mls @ 100 mls/hr IVPB Q8 [facility]; Protocol Stop: 06/23/18 23:01 Last Admin: 06/15/18 06:24 Dose: 100 mls/hr Mirtazapine (Remeron) 15 mg PO HS [facility] Last Admin: 06/14/18 22:47 Dose: Not Given Nystatin (Nystop Topical Powder) 0 gm TOP BID [facility] Last Admin: 06/14/18 17:48 Dose: 1 appl Ondansetron HCl (Zofran Inj) 4 mg IVP Q6H PRN PRN Reason: Nausea/Vomiting Last Admin: 06/14/18 17:48 Dose: 4 mg Oxycodone/Acetaminophen (Percocet 2.5/325 Mg Tab) 1 tab PO DAILY PRN PRN Reason: Pain, moderate (4-7) Last Admin: 06/13/18 11:03 Dose: 1 tab Pantoprazole Sodium (Protonix Ec Tab) 40 mg PO 0600 [facility] Last Admin: 06/15/18 06:25 Dose: 40 mg Vitamin A (Vitamin A & D Oint Ud Foilpak) 1 ea TOP DAILY PRN PRN Reason: Dry skin - Labs Labs: 06/15/18 06:00 06/15/18 06:00 PT 13.5 SECONDS (9.4-12.5) H 06/04/18 05:40 INR 1.17 06/04/18 05:40 APTT 30.8 Seconds (25.1-36.5) 06/04/18 05:40 - Constitutional Appears: Well, Non-toxic, No Acute Distress - Extremities Exam Additional comments: Dressing is clean dry and intact; no active drainage, no strikethrough noted - Neurological Exam Neurological Exam: Alert, Awake, Oriented x3 - Psychiatric Exam Psychiatric exam: Normal Affect, Normal Mood Assessment and Plan - Assessment and Plan (Free Text) Assessment: 82 F patient 11 days S/P right knee incision and drainage with debridement of R knee infected wound and osteomyelitis Plan: Patient seen and evaluated at the bedside Discussed plan with attending Dr. Philip Charts, labs and vitals reviewed; Afebrile, No leukocytosis Wound culture: Pantonea Species Dressing is clean, dry and intact, no strike through Continue Multipodus boots while in bed Right knee x-ray - prosthesis removed, cement spacer in place Continue medical management per medicine and ID team LE venous duplex: No evidence of DVT R knee MRI (05/28): OM can't be excluded despite there is no obvious bony erosions Podiatry will continue to follow up the patient while in house <Thai Philip - Last Filed: 06/16/18 10:19> Objective - Vital Signs/Intake and Output Vital Signs (last 24 hours): Temp Pulse Resp BP Pulse Ox 97.2 F L 62 18 118/57 L 97 06/15/18 06:00 06/15/18 11:06 06/15/18 06:00 06/15/18 11:06 06/15/18 06:00 - Labs Labs: 06/15/18 06:00 06/15/18 06:00 PT 13.5 SECONDS (9.4-12.5) H 06/04/18 05:40 INR 1.17 06/04/18 05:40 APTT 30.8 Seconds (25.1-36.5) 06/04/18 05:40 Attending/Attestation - Attestation I have personally seen and examined this patient.: Yes I have fully participated in the care of the patient.: Yes I have reviewed all pertinent clinical information, including history, physical exam and plan: Yes
[2018-06-15] MEDS: Nystatin 100,000 Units/gm Topical Pow(15 gm) TOP SCH (10:52)
[2018-06-15 11:13] VITALS: PULSE 62
--- NOTE | 2018-06-15 12:00 | CP.PCM.DIS ---
Provider - Provider Date of Admission: 05/16/18 21:10 Attending physician: Jay Hernandez MD Primary care physician: Ajay Waller MD Consults: 05/16/18 21:41 Physician Consult Stat Comment: Consulting Provider: Emile Power Consulting Physician: Emile Power Reason for Consult: gastroparesis/intractable vomiting 05/16/18 21:42 Physician Consult Stat Comment: Consulting Provider: Dominick Simeon Consulting Physician: Dominick Simeon Reason for Consult: dehydration/elevated lactate only/hx. chronic VRE infected knee 05/17/18 09:29 Consult [Physician Consult] Routine Comment: Consulting Provider: Hernan Watson Consulting Physician: Hernan Watson Reason for Consult: R knee replacement 05/17/18 12:52 Consult [Physician Consult] Routine Comment: Consulting Provider: Kristen Oliva Consulting Physician: Kristen Oliva Reason for Consult: Right knee wound 05/18/18 11:16 Consult [Physician Consult] Routine Comment: Consulting Provider: Elio Hancock Consulting Physician: Elio Hancock Reason for Consult: Infected R knee wound and OM. for hypebaric oxygen clearance. 05/19/18 09:43 Consult [Physician Consult] Routine Comment: Consulting Provider: Brianna Pritchard Consulting Physician: Brianna Pritchard Reason for Consult: thrombocytopenia 05/19/18 09:53 Consult [Physician Consult] Routine Comment: Consulting Provider: Howard Olguin V Consulting Physician: Howard Olguin V Reason for Consult: nausea and vomiting 05/19/18 13:19 Physician Consult Routine Comment: Consulting Provider: Ashely Klein Consulting Physician: Ashely Klein Reason for Consult: depression / competency 05/20/18 12:34 Consult [Physician Consult] Routine Comment: Consulting Provider: Kian Perry Consulting Physician: Kian Perry Reason for Consult: eval for mass or lesion, per GI 05/21/18 18:24 Consult [Physician Consult] Routine Comment: Consulting Provider: Garima Cobos Consulting Physician: Garima Cobos Reason for Consult: pallitive care 05/27/18 12:42 Consult [Physician Consult] Routine Comment: Consulting Provider: Elio Hancock Consulting Physician: Elio Hancock Reason for Consult: clearance for hyperbaric treatment to start Saturday 06/02 to knee wnd Hospital Course - Lab Results Lab Results: Micro Results 06/04/18 08:14 Other: Please Indicate Gram Stain - Final 06/04/18 08:14 Other: Please Indicate Anaerobic Culture - Final NO ANAEROBES ISOLATED. 06/04/18 08:14 Other: Please Indicate Wound Culture - Final Pseudomonas Aeruginosa 06/04/18 08:09 Other: Please Indicate Gram Stain - Final 06/04/18 08:09 Other: Please Indicate Anaerobic Culture - Final NO ANAEROBES ISOLATED. 06/04/18 08:09 Other: Please Indicate Wound Culture - Final Pseudomonas Aeruginosa 06/02/18 10:45 Rectal Fluid VRE Culture - Final 05/19/18 19:57 Knee - Right Gram Stain - Final 05/19/18 19:57 Knee - Right Wound Culture - Final [place] Species 05/16/18 19:42 Blood Blood Culture - Final NO GROWTH AFTER 5 DAYS 05/16/18 19:42 Blood Gram Stain - Final TEST NOT PERFORMED 05/16/18 19:12 Blood Blood Culture - Final NO GROWTH AFTER 5 DAYS 05/16/18 19:12 Blood Gram Stain - Final TEST NOT PERFORMED 05/16/18 19:20 Urine Urine Culture - Final No Growth (<1,000 CFU/ML) Most Recent Lab Values WBC 7.2 10^3/uL (4.5-11.0) 06/15/18 06:00 RBC 3.33 10^6/uL (3.5-6.1) L 06/15/18 06:00 Hgb 9.2 g/dL (12.0-16.0) L 06/15/18 06:00 Hct 29.5 % (36.0-48.0) L 06/15/18 06:00 MCV 88.6 fl (80.0-105.0) 06/15/18 06:00 MCH 27.6 pg (25.0-35.0) 06/15/18 06:00 MCHC 31.2 g/dl (31.0-37.0) 06/15/18 06:00 RDW 17.7 % (11.5-14.5) H 06/15/18 06:00 Plt Count 192 10^3/uL (120.0-450.0) 06/15/18 06:00 Manual Plt Count 41 K/mm3 (120-450) L* 05/23/18 06:00 MPV 10.1 fl (7.0-11.0) 06/15/18 06:00 Gran % 54.7 % (50.0-68.0) 06/15/18 06:00 Lymph % (Auto) 27.2 % (22.0-35.0) 06/15/18 06:00 [place] % (Auto) 8.4 % (1.0-6.0) H 06/15/18 06:00 Eos % (Auto) 8.9 % (1.5-5.0) H 06/15/18 06:00 Baso % (Auto) 0.8 % (0.0-3.0) 06/15/18 06:00 Gran # 3.95 (1.4-6.5) 06/15/18 06:00 Lymph # (Auto) 2.0 (1.2-3.4) 06/15/18 06:00 [place] # (Auto) 0.6 (0.1-0.6) 06/15/18 06:00 Eos # (Auto) 0.6 (0.0-0.7) 06/15/18 06:00 Baso # (Auto) 0.06 K/mm3 (0.0-2.0) 06/15/18 06:00 ESR 20 mm/hr (0.0-20.0) 06/14/18 10:13 Retic Count 0.12 % (0.5-1.5) L 05/20/18 06:30 PT 13.5 SECONDS (9.4-12.5) H 06/04/18 05:40 INR 1.17 06/04/18 05:40 APTT 30.8 Seconds (25.1-36.5) 06/04/18 05:40 Fibrinogen 279 mg/dl (200-400) 05/23/18 06:00 pCO2 25 mm/Hg (35-45) L 05/17/18 14:00 pO2 110.0 mm/Hg (80-100) H 05/17/18 14:00 HCO3 13.8 mmol/L (21-28) L 05/17/18 14:00 ABG pH 7.35 (7.35-7.45) 05/17/18 14:00 ABG Total CO2 14.6 mmol.L (22-28) L 05/17/18 14:00 ABG O2 Saturation 99.5 % (95-98) H 05/17/18 14:00 ABG O2 Content 12.3 ML/dl (15-23) L 05/17/18 14:00 ABG Base Excess -10.5 mmol/L (-2.0-3.0) L 05/17/18 14:00 ABG Hemoglobin 8.9 g/dL (11.7-17.4) L 05/17/18 14:00 ABG Carboxyhemoglobin 1.4 % (0.5-1.5) 05/17/18 14:00 POC ABG HHb (Measured) 0.5 % (0-5) 05/17/18 14:00 ABG Methemoglobin 1.4 % (0.0-3.0) 05/17/18 14:00 ABG O2 Capacity 12.4 mL/dl (16-24) L 05/17/18 14:00 VBG pH 7.25 (7.32-7.43) L 05/17/18 13:50 VBG pCO2 38.0 (40-60) L 05/17/18 13:50 VBG HCO3 16.7 mmol/l (21-28) L 05/17/18 13:50 VBG Total CO2 17.9 mmol.L (22-28) L 05/17/18 13:50 VBG O2 Sat (Calc) 82.7 % (40-65) H 05/17/18 13:50 VBG Base Excess -9.9 mmol/L (0.0-2.0) L 05/17/18 13:50 VBG Potassium 4.0 mmol/L (3.6-5.2) 05/17/18 13:50 Hgb O2 Saturation 96.7 % (95.0-98.0) 05/17/18 14:00 Sodium 142.0 mmol/L (132-148) 05/17/18 13:50 Chloride 103.0 mmol/L (98-107) 05/17/18 13:50 Glucose 99 mg/dl (65-105) 05/17/18 13:50 Lactate 12.1 mmol/L (0.7-2.1) H* 05/17/18 13:50 FiO2 21.0 % 05/17/18 14:00 Sodium 133 mmol/L (132-148) 06/15/18 06:00 Potassium 3.5 mmol/L (3.6-5.0) L 06/15/18 06:00 Chloride 98 mmol/L (98-107) 06/15/18 06:00 Carbon Dioxide 32 mmol/L (21-33) 06/15/18 06:00 Anion Gap 6 (10-20) L 06/15/18 06:00 BUN 8 mg/dL (7-21) 06/15/18 06:00 Creatinine 0.4 mg/dl (0.7-1.2) L 06/15/18 06:00 Est GFR ( Amer) > 60 06/15/18 06:00 Est GFR (Non-Af Amer) > 60 06/15/18 06:00 POC Glucose (mg/dL) 85 mg/dL (65-110) 06/09/18 17:33 Random Glucose 86 mg/dL (70-110) 06/15/18 06:00 Serum Osmolality 318 mosm/kg (272-300) H 05/17/18 09:30 Lactic Acid 3.3 mmol/L (0.7-2.1) H 05/21/18 10:20 Calcium 8.1 mg/dL (8.4-10.5) L 06/15/18 06:00 Phosphorus 3.9 mg/dL (2.5-4.5) 05/25/18 07:45 Magnesium 2.2 mg/dL (1.7-2.2) 05/26/18 07:40 Ferritin 807.0 ng/mL 05/20/18 06:30 Total Bilirubin 0.7 mg/dL (0.2-1.3) 06/12/18 06:20 AST 21 U/L (14-36) 06/12/18 06:20 ALT 23 U/L (7-56) 06/12/18 06:20 Alkaline Phosphatase 92 U/L (38-126) 06/12/18 06:20 Total Creatine Kinase < 20 U/L (35-230) L 05/16/18 19:12 C-Reactive Protein 15.60 mg/L (0.0-9.9) H 06/14/18 07:00 Total Protein 5.2 g/dL (5.8-8.3) L 06/12/18 06:20 Albumin 2.3 g/dL (3.0-4.8) L 06/12/18 06:20 Globulin 2.9 gm/dL 06/12/18 06:20 Albumin/Globulin Ratio 0.8 (1.1-1.8) L 06/12/18 06:20 Vitamin B12 344 pg/mL (239-931) 05/20/18 06:30 25-OH Vitamin D Total < 12.8 NG/ML (30.0-100.0) L 06/14/18 10:13 Folate 4.0 ng/mL 05/20/18 06:30 Venous Blood Potassium 4.0 mmol/L (3.6-5.2) 05/17/18 13:50 Urine Color Yellow (YELLOW) 05/16/18 19:20 Urine Appearance Clear (CLEAR) 05/16/18 19:20 Urine pH 6.0 (4.7-8.0) 05/16/18 19:20 Ur Specific [place] 1.020 (1.005-1.035) 05/16/18 19:20 Urine Protein Negative mg/dL (<30 mg/dL) 05/16/18 19:20 Urine Glucose (UA) Negative mg/dL (NEGATIVE) 05/16/18 19:20 Urine Ketones Negative mg/dL (NEGATIVE) 05/16/18 19:20 Urine Blood Negative (NEGATIVE) 05/16/18 19:20 Urine Nitrate Negative (NEGATIVE) 05/16/18 19:20 Urine Bilirubin Negative (NEGATIVE) 05/16/18 19:20 Urine Urobilinogen 0.2 E.U./dL (<1 E.U./dL) 05/16/18 19:20 Ur Leukocyte Esterase Negative [place]/uL (NEGATIVE) 05/16/18 19:20 Digoxin 1.4 ng/mL (0.8-2.0) 06/01/18 07:00 Blood Type O NEGATIVE 06/04/18 06:35 Antibody Screen Negative 06/04/18 06:35 Crossmatch See Detail 06/04/18 06:35 BBK History Checked Patient has bt 06/04/18 06:35 Discharge Exam - Head Exam Head Exam: ATRAUMATIC, NORMAL INSPECTION, NORMOCEPHALIC Discharge Plan - Discharge Medications Prescriptions: Apixaban [Eliquis] 2.5 mg PO BID #60 tab - Follow Up Plan Condition: FAIR Disposition: REHAB FACILITY/REHAB UNIT Instructions: Total Knee Replacement (DC), Nausea and Vomiting, Adult (DC), Normocytic Normochromic Anemia (DC), Dehydration (DC) Additional Instructions: Continue Meropenem for 3 weeks as per ID Weekly CBC, CMP, ESR, CRP Please follow up with your PCP Dr. Waller within one week. Please follow up with appointments with Dr. Oliva and Dr. Watson within one week. Please follow up with your parts identifier regarding ongoing medications and monitoring. Should symptoms worsen or reoccur, please visit nearest emergency department. Referrals: Hernan Watson MD [Staff Provider] - Ajay Waller MD [Primary Care Provider] - Kristen Oliva DPM [Staff Provider] -
--- NOTE | 2018-06-15 17:21 | PN ---
DATE: 06/15/2018 SUBJECTIVE: The patient is seen earlier today in the . She is awake. She is tolerating her diet well. She states she is improving and not as weak as earlier. PHYSICAL EXAMINATION: VITAL SIGNS: Temperature is 97, blood pressure is 118/50, respiratory rate 18. HEENT: Unremarkable. NECK: Supple. LUNGS: Decreased breath sounds. HEART: Normal S1 and S2. ABDOMEN: Soft. LABORATORY DATA: Reveals a white count of 7.2, hemoglobin of 9. Chemistries are noted and urinalysis is noted and digoxin level is noted. Microbiology is reviewed. She did have Pseudomonas from the last culture. Review of orders reveals the patient to be on meropenem. ASSESSMENT AND PLAN: This is an 82-year-old female with right prosthetic knee infection and infected with a hematoma with VRE status post debridement, removal, placement of an antibiotic spacer. She received 6 weeks of antibiotics. Developed complications of treatment and surgical site wound necrosis and status post debridement, now with Pseudomonas on meropenem. We will discuss with Orthopedics regarding future plan. We will follow with you. Dominick Simeon MD
--- NOTE | 2018-06-15 18:13 | CP.PCM.DIS ---
Provider - Provider Date of Admission: 05/16/18 21:10 Attending physician: Jay Hernandez MD Primary care physician: Ajay Waller MD Consults: 05/16/18 21:41 Physician Consult Stat Comment: Consulting Provider: Emile Power Consulting Physician: Emile Power Reason for Consult: gastroparesis/intractable vomiting 05/16/18 21:42 Physician Consult Stat Comment: Consulting Provider: Dominick Simeon Consulting Physician: Dominick Simeon Reason for Consult: dehydration/elevated lactate only/hx. chronic VRE infected knee 05/17/18 09:29 Consult [Physician Consult] Routine Comment: Consulting Provider: Hernan Watson Consulting Physician: Hernan Watson Reason for Consult: R knee replacement 05/17/18 12:52 Consult [Physician Consult] Routine Comment: Consulting Provider: Kristen Oliva Consulting Physician: Kristen Oliva Reason for Consult: Right knee wound 05/18/18 11:16 Consult [Physician Consult] Routine Comment: Consulting Provider: Elio Hancock Consulting Physician: Elio Hancock Reason for Consult: Infected R knee wound and OM. for hypebaric oxygen clearance. 05/19/18 09:43 Consult [Physician Consult] Routine Comment: Consulting Provider: Brianna Pritchard Consulting Physician: Brianna Pritchard Reason for Consult: thrombocytopenia 05/19/18 09:53 Consult [Physician Consult] Routine Comment: Consulting Provider: Howard Olguin V Consulting Physician: Howard Olguin V Reason for Consult: nausea and vomiting 05/19/18 13:19 Physician Consult Routine Comment: Consulting Provider: Ashely Klein Consulting Physician: Ashely Klein Reason for Consult: depression / competency 05/20/18 12:34 Consult [Physician Consult] Routine Comment: Consulting Provider: Kian Perry Consulting Physician: Kian Perry Reason for Consult: eval for mass or lesion, per GI 05/21/18 18:24 Consult [Physician Consult] Routine Comment: Consulting Provider: Garima Cobos Consulting Physician: Garima Cobos Reason for Consult: pallitive care 05/27/18 12:42 Consult [Physician Consult] Routine Comment: Consulting Provider: Elio Hancock Consulting Physician: Elio Hancock Reason for Consult: clearance for hyperbaric treatment to start Saturday 06/02 to knee wnd Time Spent in preparation of Discharge (in minutes): 60 Hospital Course - Lab Results Lab Results: Micro Results 06/04/18 08:14 Other: Please Indicate Gram Stain - Final 06/04/18 08:14 Other: Please Indicate Anaerobic Culture - Final NO ANAEROBES ISOLATED. 06/04/18 08:14 Other: Please Indicate Wound Culture - Final Pseudomonas Aeruginosa 06/04/18 08:09 Other: Please Indicate Gram Stain - Final 06/04/18 08:09 Other: Please Indicate Anaerobic Culture - Final NO ANAEROBES ISOLATED. 06/04/18 08:09 Other: Please Indicate Wound Culture - Final Pseudomonas Aeruginosa 06/02/18 10:45 Rectal Fluid VRE Culture - Final 05/19/18 19:57 Knee - Right Gram Stain - Final 05/19/18 19:57 Knee - Right Wound Culture - Final [place] Species 05/16/18 19:42 Blood Blood Culture - Final NO GROWTH AFTER 5 DAYS 05/16/18 19:42 Blood Gram Stain - Final TEST NOT PERFORMED 05/16/18 19:12 Blood Blood Culture - Final NO GROWTH AFTER 5 DAYS 05/16/18 19:12 Blood Gram Stain - Final TEST NOT PERFORMED 05/16/18 19:20 Urine Urine Culture - Final No Growth (<1,000 CFU/ML) Most Recent Lab Values WBC 7.2 10^3/uL (4.5-11.0) 06/15/18 06:00 RBC 3.33 10^6/uL (3.5-6.1) L 06/15/18 06:00 Hgb 9.2 g/dL (12.0-16.0) L 06/15/18 06:00 Hct 29.5 % (36.0-48.0) L 06/15/18 06:00 MCV 88.6 fl (80.0-105.0) 06/15/18 06:00 MCH 27.6 pg (25.0-35.0) 06/15/18 06:00 MCHC 31.2 g/dl (31.0-37.0) 06/15/18 06:00 RDW 17.7 % (11.5-14.5) H 06/15/18 06:00 Plt Count 192 10^3/uL (120.0-450.0) 06/15/18 06:00 Manual Plt Count 41 K/mm3 (120-450) L* 05/23/18 06:00 MPV 10.1 fl (7.0-11.0) 06/15/18 06:00 Gran % 54.7 % (50.0-68.0) 06/15/18 06:00 Lymph % (Auto) 27.2 % (22.0-35.0) 06/15/18 06:00 [place] % (Auto) 8.4 % (1.0-6.0) H 06/15/18 06:00 Eos % (Auto) 8.9 % (1.5-5.0) H 06/15/18 06:00 Baso % (Auto) 0.8 % (0.0-3.0) 06/15/18 06:00 Gran # 3.95 (1.4-6.5) 06/15/18 06:00 Lymph # (Auto) 2.0 (1.2-3.4) 06/15/18 06:00 [place] # (Auto) 0.6 (0.1-0.6) 06/15/18 06:00 Eos # (Auto) 0.6 (0.0-0.7) 06/15/18 06:00 Baso # (Auto) 0.06 K/mm3 (0.0-2.0) 06/15/18 06:00 ESR 20 mm/hr (0.0-20.0) 06/14/18 10:13 Retic Count 0.12 % (0.5-1.5) L 05/20/18 06:30 PT 13.5 SECONDS (9.4-12.5) H 06/04/18 05:40 INR 1.17 06/04/18 05:40 APTT 30.8 Seconds (25.1-36.5) 06/04/18 05:40 Fibrinogen 279 mg/dl (200-400) 05/23/18 06:00 pCO2 25 mm/Hg (35-45) L 05/17/18 14:00 pO2 110.0 mm/Hg (80-100) H 05/17/18 14:00 HCO3 13.8 mmol/L (21-28) L 05/17/18 14:00 ABG pH 7.35 (7.35-7.45) 05/17/18 14:00 ABG Total CO2 14.6 mmol.L (22-28) L 05/17/18 14:00 ABG O2 Saturation 99.5 % (95-98) H 05/17/18 14:00 ABG O2 Content 12.3 ML/dl (15-23) L 05/17/18 14:00 ABG Base Excess -10.5 mmol/L (-2.0-3.0) L 05/17/18 14:00 ABG Hemoglobin 8.9 g/dL (11.7-17.4) L 05/17/18 14:00 ABG Carboxyhemoglobin 1.4 % (0.5-1.5) 05/17/18 14:00 POC ABG HHb (Measured) 0.5 % (0-5) 05/17/18 14:00 ABG Methemoglobin 1.4 % (0.0-3.0) 05/17/18 14:00 ABG O2 Capacity 12.4 mL/dl (16-24) L 05/17/18 14:00 VBG pH 7.25 (7.32-7.43) L 05/17/18 13:50 VBG pCO2 38.0 (40-60) L 05/17/18 13:50 VBG HCO3 16.7 mmol/l (21-28) L 05/17/18 13:50 VBG Total CO2 17.9 mmol.L (22-28) L 05/17/18 13:50 VBG O2 Sat (Calc) 82.7 % (40-65) H 05/17/18 13:50 VBG Base Excess -9.9 mmol/L (0.0-2.0) L 05/17/18 13:50 VBG Potassium 4.0 mmol/L (3.6-5.2) 05/17/18 13:50 Hgb O2 Saturation 96.7 % (95.0-98.0) 05/17/18 14:00 Sodium 142.0 mmol/L (132-148) 05/17/18 13:50 Chloride 103.0 mmol/L (98-107) 05/17/18 13:50 Glucose 99 mg/dl (65-105) 05/17/18 13:50 Lactate 12.1 mmol/L (0.7-2.1) H* 05/17/18 13:50 FiO2 21.0 % 05/17/18 14:00 Sodium 133 mmol/L (132-148) 06/15/18 06:00 Potassium 3.5 mmol/L (3.6-5.0) L 06/15/18 06:00 Chloride 98 mmol/L (98-107) 06/15/18 06:00 Carbon Dioxide 32 mmol/L (21-33) 06/15/18 06:00 Anion Gap 6 (10-20) L 06/15/18 06:00 BUN 8 mg/dL (7-21) 06/15/18 06:00 Creatinine 0.4 mg/dl (0.7-1.2) L 06/15/18 06:00 Est GFR ( Amer) > 60 06/15/18 06:00 Est GFR (Non-Af Amer) > 60 06/15/18 06:00 POC Glucose (mg/dL) 85 mg/dL (65-110) 06/09/18 17:33 Random Glucose 86 mg/dL (70-110) 06/15/18 06:00 Serum Osmolality 318 mosm/kg (272-300) H 05/17/18 09:30 Lactic Acid 3.3 mmol/L (0.7-2.1) H 05/21/18 10:20 Calcium 8.1 mg/dL (8.4-10.5) L 06/15/18 06:00 Phosphorus 3.9 mg/dL (2.5-4.5) 05/25/18 07:45 Magnesium 2.2 mg/dL (1.7-2.2) 05/26/18 07:40 Ferritin 807.0 ng/mL 05/20/18 06:30 Total Bilirubin 0.7 mg/dL (0.2-1.3) 06/12/18 06:20 AST 21 U/L (14-36) 06/12/18 06:20 ALT 23 U/L (7-56) 06/12/18 06:20 Alkaline Phosphatase 92 U/L (38-126) 06/12/18 06:20 Total Creatine Kinase < 20 U/L (35-230) L 05/16/18 19:12 C-Reactive Protein 15.60 mg/L (0.0-9.9) H 06/14/18 07:00 Total Protein 5.2 g/dL (5.8-8.3) L 06/12/18 06:20 Albumin 2.3 g/dL (3.0-4.8) L 06/12/18 06:20 Globulin 2.9 gm/dL 06/12/18 06:20 Albumin/Globulin Ratio 0.8 (1.1-1.8) L 06/12/18 06:20 Vitamin B12 344 pg/mL (239-931) 05/20/18 06:30 25-OH Vitamin D Total < 12.8 NG/ML (30.0-100.0) L 06/14/18 10:13 Folate 4.0 ng/mL 05/20/18 06:30 Venous Blood Potassium 4.0 mmol/L (3.6-5.2) 05/17/18 13:50 Urine Color Yellow (YELLOW) 05/16/18 19:20 Urine Appearance Clear (CLEAR) 05/16/18 19:20 Urine pH 6.0 (4.7-8.0) 05/16/18 19:20 Ur Specific [place] 1.020 (1.005-1.035) 05/16/18 19:20 Urine Protein Negative mg/dL (<30 mg/dL) 05/16/18 19:20 Urine Glucose (UA) Negative mg/dL (NEGATIVE) 05/16/18 19:20 Urine Ketones Negative mg/dL (NEGATIVE) 05/16/18 19:20 Urine Blood Negative (NEGATIVE) 05/16/18 19:20 Urine Nitrate Negative (NEGATIVE) 05/16/18 19:20 Urine Bilirubin Negative (NEGATIVE) 05/16/18 19:20 Urine Urobilinogen 0.2 E.U./dL (<1 E.U./dL) 05/16/18 19:20 Ur Leukocyte Esterase Negative [place]/uL (NEGATIVE) 05/16/18 19:20 Digoxin 1.4 ng/mL (0.8-2.0) 06/01/18 07:00 Blood Type O NEGATIVE 06/04/18 06:35 Antibody Screen Negative 06/04/18 06:35 Crossmatch See Detail 06/04/18 06:35 BBK History Checked Patient has bt 06/04/18 06:35 - Hospital Course Hospital Course: [facility], PGY-1, Internal Medicine Discharge Summary for Dr. Hernandez 82 year old female with past medical history of hypertension, coronary artery disease, atrial fibrillation prior on warfarin and now on eliquis, osteoarthritis, and right knee replacement presents with nausea and vomiting on presentation. Patient had been at subacute rehabilitation facility and had been having nausea and vomiting, She was not able to eat. Patient had been on Zyvox for VRE and was status post right knee replacement with infectious complications . Patient also presented with failure to thrive. Patient initially had thrombocytopenia and linezolid was discontinued and was started on daptomycin after complication with status post right knee replacement procedure. This together was a 6 week course. PPN was started on 05/19. She was DNR. ID, podiatry and orthopedics are following the patients. Patient finished 6 weeks of antibiotics. MRI of the knee was reviewed and showed difficult to exclude osteomyelitis. 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 Patient had debridement of necrotic skin 11 days ago. This procedure was done 06/04. Hyperbaric therapy was indicated as well. Wound culture grew Pseudomonas and she was started on meropenem. Because of thro mbocytopenia and abnormal PT/PTT, patient's warfarin was stopped and patient was started on eliquis on this admission. Patient had severe anemia and thrombocytopenia that resolved. Patient had 1 U of PRBCs on this admission and was given one dose of erythropoietin. Patient was diagnosed with anemia of chronic disease. Iron, B12, and folate were within normal limits. Thrombocytopenia was likely medication induced from the zyvox. Transfusion was given after hemoglobin dropped to 7.2. Hemoglobin continued to improve to the 9s. GI, Dr. Olguin, reported that dysphagia was multifactorial with motility dysfunction and deconditioning. Patient had speech and swallow evaluation who recommended puree consistency diet with extra gravy and thin liquids. Aspiration and reflux precautions were started. Due to patient's poor prognosis, daughters were contacted. Daughters refused PEG tube, in accordance with mother's advanced directive wishes. Hospice services were explained to family but daughters c onflicted because they were unable to stay home from their jobs to help take care of their mother. Daughters stated mother does not have finances to pay for 24 hour aide or to go to senior living facility. For discharge, subacute rehabilitation was initially planned but due to not being to accomodate hyperbaric oxygen therapy, patient was not able to be accepted to most places. However, [facility] [place] has [facility] facilities to accomodate her and she was discharged to [facility]. Patient is stable and ready for transfer to subacute rehabilitation. Patient needs to continue meropenem for 3 weeks as per ID. Weekly CBC, CMP, ESR, and CRP. Patient should follow up with PCP, Dr. Fleming, in one week or at earliest convenience at subacute rehabilitation. Patient was told to follow up appo intments with Dr. Oliva and Dr. Blevins within one week. Follow up with fleet administrative assistant regarding ongoing medications and monitoring. If symptoms recur or other concerning symptoms occur, patient was told to go to nearest emergency department. This is a brief summary of the events that occurred at this hospital stay. For complete documentation, please refer to the hospital documentation. - Date & Time of H&P Date of H&P: 06/15/18 Time of H&P: 17:19 Discharge Exam - Head Exam Head Exam: ATRAUMATIC, NORMAL INSPECTION, NORMOCEPHALIC - Eye Exam Eye Exam: EOMI, PERRL - Respiratory Exam Respiratory Exam: Clear to PA & Lateral, NORMAL BREATHING PATTERN - Cardiovascular Exam Cardiovascular Exam: REGULAR RHYTHM - GI/Abdominal Exam GI & Abdominal Exam: Normal Bowel Sounds - Extremities Exam Extremities exam: full ROM, joint swelling Additional comments: right leg wound covered with bandage - Neurological Exam Neurological exam: Alert, CN II-XII Intact - Skin Skin Exam: Dry, Intact Discharge Plan - Discharge Medications Prescriptions: Apixaban [Eliquis] 2.5 mg PO BID #60 tab - Follow Up Plan Condition: FAIR Disposition: REHAB FACILITY/REHAB UNIT Instructions: Total Knee Replacement (DC), Nausea and Vomiting, Adult (DC), Normocytic Normochromic Anemia (DC), Dehydration (DC) Additional Instructions: Continue Meropenem for 3 weeks as per ID Weekly CBC, CMP, ESR, CRP Please follow up with your PCP Dr. Waller within one week. Please follow up with appointments with Dr. Oliva and Dr. Watson within one week. Please follow up with your fleet administrative assistant regarding ongoing medications and monitoring. Should symptoms worsen or reoccur, please visit nearest emergency department. Referrals: Hernan Watson MD [Staff Provider] - Ajay Waller MD [Primary Care Provider] - Kristen Oliva DPM [Staff Provider] -
[2018-06-16] MEDS ORDERED: Oxycodone/Acetaminophen 2.5/325 mg Tab PO SCH (10:00)
== END 2018-06-15 15:19 | DRG 982 ==
LOC: ED 17:46 → ERH 21:10 → 5RNO 05-17 01:00
PROVIDERS: ADMIT Internal Medicine Nephrology; ATTEND Internal Medicine
PROC: 3E0336Z Introduction of Nutritional Substance into Peripheral Vein, Percutaneous Approach (ICD-10-PCS; principal; 2018-05-19)
PROC: 05H633Z Insertion of Infusion Device into Left Subclavian Vein, Percutaneous Approach (ICD-10-PCS; 2018-05-20)
PROC: 30233N1 Transfusion of Nonautologous Red Blood Cells into Peripheral Vein, Percutaneous Approach (ICD-10-PCS; 2018-05-21)
PROC: 5A05121 Extracorporeal Hyperbaric Oxygenation, Intermittent (ICD-10-PCS; 2018-05-30)
PROC: 0JDN0ZZ Extraction of Right Lower Leg Subcutaneous Tissue and Fascia, Open Approach (ICD-10-PCS; 2018-06-04)
DX: E87.2 Acidosis (principal); E86.0 Dehydration; T84.53XA Infection and inflammatory reaction due to internal right knee prosthesis, initial encounter; E44.0 Moderate protein-calorie malnutrition; D61.818 Other pancytopenia; M86.9 Osteomyelitis, unspecified; I50.32 Chronic diastolic (congestive) heart failure; T36.8X5A Adverse effect of other systemic antibiotics, initial encounter; E86.1 Hypovolemia; I48.91 Unspecified atrial fibrillation; I25.10 Atherosclerotic heart disease of native coronary artery without angina pectoris; D63.8 Anemia in other chronic diseases classified elsewhere; R62.7 Adult failure to thrive; E78.00 Pure hypercholesterolemia, unspecified; I11.0 Hypertensive heart disease with heart failure; F32.9 Major depressive disorder, single episode, unspecified; R13.10 Dysphagia, unspecified; Z66 Do not resuscitate; Z68.21 Body mass index [BMI] 21.0-21.9, adult; R29.6 Repeated falls; Z79.01 Long term (current) use of anticoagulants; K29.70 Gastritis, unspecified, without bleeding; Z16.21 Resistance to vancomycin; Z98.61 Coronary angioplasty status; Z79.82 Long term (current) use of aspirin; Z88.0 Allergy status to penicillin; Z86.718 Personal history of other venous thrombosis and embolism; Y83.1 Surgical operation with implant of artificial internal device as the cause of abnormal reaction of the patient, or of later complication, without mention of misadventure at the time of the procedure

== ENCOUNTER 2018-07-06 12:35 | Inpatient (IN) | payer MEDICARE, BC ==
--- NOTE | 2018-07-06 13:42 | ED PDOC ---
Arrival/HPI - General Chief Complaint: Lower Extremity Problem/Injury Time Seen by Provider: 07/06/18 13:12 Historian: Patient - History of Present Illness Narrative History of Present Illness (Text): 07/06/18 13:33 82 year old female (DNR, DNI), whose past medical history includes knee replacement s/p infection, hypertension, CAD, and afib on eloquis, who presents to the emergency department complaining of vomiting and bilateral leg pain that has worsened the last few days. Patient is [place] [facility] [place] Patient is a poor historian. Patient denies any fever, chills, chest pain, shortness of breath, nausea, diarrhea, back pain, neck pain, headache, dizziness, or any other complaints. Time/Duration: < week Symptom Onset: Gradual Symptom Course: Unchanged Activities at Onset: Light Context: Home Past Medical History - Provider Review Nursing Documentation Reviewed: Yes - Infectious Disease Hx of Infectious Diseases: None - Tetanus Immunization Tetanus Immunization: Unknown - Reproductive Menopause: Yes - Cardiac Hx Cardiac Disorders: Yes Hx Hypertension: Yes - Pulmonary Hx Respiratory Disorders: Yes Hx Pneumonia: Yes - Neurological HX Cerebrovascular Accident: Yes - HEENT Hx HEENT Disorder: Yes (LAZY EYE LEFT EYE) Hx Cataracts: Yes - Renal Hx Renal Disorder: No - Endocrine/Metabolic Hx Endocrine Disorders: No - Hematological/Oncological Hx Blood Transfusions: Yes Hx Blood Transfusion Reaction: No - Integumentary Hx Dermatological Disorder: Yes Other/Comment: RIGHT KNEE SURGERY -WOUND VAC-KNEE IMMOBILIZER - Musculoskeletal/Rheumatological Hx Musculoskeletal Disorders: Yes (ORIF RIGHT TIBIA 1989) Hx Arthritis: Yes Hx Degenerative Joint Disease: Yes Hx Falls: Yes Hx Fractures: Yes (RIGHT LEG ,ANKLE) Hx Osteoporosis: Yes Hx Unsteady Gait: Yes - Gastrointestinal Hx Gastrointestinal Disorders: Yes (HEMORRHOIDS,CONSTIPATION) - Genitourinary/Gynecological Hx Genitourinary Disorders: Yes (PMB) - Psychiatric Hx Psychophysiologic Disorder: No Hx Substance Use: No - Surgical History Hx Mastectomy: No Other/Comment: ORIF RIGHT TIBIA 1989,BILATERAL CATARACT SX, - Anesthesia Hx Anesthesia Reactions: No Hx Malignant Hyperthermia: No - Suicidal Assessment Feels Threatened In Home Enviroment: No Family/Social History - Physician Review Nursing Documentation Reviewed: Yes Family/Social History: Unknown Family HX Smoking Status: Never Smoked Hx Alcohol Use: Yes Frequency of alcohol use: Socially Hx Substance Use: No Allergies/Home Meds Allergies/Adverse Reactions: Allergies diphenhydramine [From Benadryl] Allergy (Severe, Verified 07/06/18 12:41) unknown nitroglycerin Allergy (Severe, Verified 07/06/18 12:41) ANAPHYLAXIS pcn Allergy (Severe, Uncoded 07/06/18 12:41) RASH silk tape Allergy (Uncoded 07/06/18 12:41) blisters chocolate candy Adverse Reaction (Severe, Uncoded 07/06/18 12:41) HEADACHE Home Medications: Home Meds Medication Instructions Recorded Confirmed RX: Simvastatin [Zocor] 40 mg PO HS 08/19/16 07/06/18 RX: Atenolol [Tenormin] 25 mg PO BID 02/01/17 07/06/18 RX: Acetaminophen [Tylenol 325mg 650 mg PO Q6H PRN 05/17/18 07/06/18 tab] Acetaminophen/Oxycodone Hydr 1 tab PO Q6H PRN 07/06/18 07/06/18 [Percocet 2.5/325 mg Tab] Digoxin [Lanoxin] 0.25 mg PO DAILY 07/06/18 07/06/18 Mirtazapine [Remeron] 15 mg PO DAILY 07/06/18 07/06/18 Pantoprazole Sodium [Protonix] 40 mg PO DAILY 07/06/18 07/06/18 Review of Systems - Physician Review All systems were reviewed & negative as marked: Yes - Review of Systems Constitutional: Normal Eyes: Normal ENT: Normal Respiratory: Normal. absent: SOB, Cough Cardiovascular: Normal. absent: Chest Pain Gastrointestinal: Vomiting. absent: Abdominal Pain Genitourinary Female: Normal. absent: Dysuria, Frequency Musculoskeletal: Other (bilateral leg pain). absent: Back Pain, Neck Pain Skin: Normal. absent: Rash Neurological: Normal. absent: Headache, Dizziness Endocrine: Normal Hemo/Lymphatic: Normal Psychiatric: Normal Physical Exam Vital Signs Reviewed: Yes Vital Signs Temp Pulse Resp BP Pulse Ox 07/06/18 12:45 97.8 F 55 L 19 131/60 96 Temperature: Afebrile Blood Pressure: Normal Pulse: Bradycardic Respiratory Rate: Normal Appearance: Positive for: Well-Appearing, Non-Toxic, Comfortable Pain Distress: None Mental Status: Positive for: Alert and Oriented X 3 - Systems Exam Head: Present: Atraumatic, Normocephalic Pupils: Present: PERRL Extroacular Muscles: Present: EOMI Conjunctiva: Present: Normal Mouth: Present: Moist Mucous Membranes Neck: Present: Normal Range of Motion Respiratory/Chest: Present: Clear to Auscultation, Good Air Exchange. No: Respiratory Distress, Accessory Muscle Use Cardiovascular: Present: Regular Rate and Rhythm, Normal S1, S2. No: Murmurs Abdomen: No: Tenderness, Distention, Peritoneal Signs Back: Present: Normal Inspection Upper Extremity: Present: Normal Inspection. No: Cyanosis, Edema Lower Extremity: Present: Erythema (rt knee wound). No: Edema Neurological: Present: GCS=15, CN II-XII Intact, Speech Normal Skin: Present: Warm, Dry, Normal Color. No: Rashes Psychiatric: Present: Alert, Oriented x 3, Normal Insight, Normal Concentration Medical Decision Making ED Course and Treatment: 07/06/18 13:44 Impression: 82 year old female who presents to the Emergency department complaining of vomiting and bilateral leg pain. Plan: -- VBG -- Labs -- Cardiac iso -- Chest X-ray -- Tylenol -- US lower extremity -- Reassess and disposition Progress Notes: 07/06/18 13:55 EKG reviewed, shows Atrial fibrillation at 54bpm. 07/06/18 14:54 Chest X-ray reviewed, shows: IMPRESSION: Small bilateral pleural effusions. 07/12/18 07:34 noted bradycardia and elevated bnp and dig. accepted hospiatlsit. - RAD Interpretation Radiology Orders: 07/06/18 13:20 DUPLEX LOWER EXTRM VEIN BILAT [US] Stat 07/06/18 13:30 CHEST PORTABLE [RAD] Stat - Medication Orders Current Medication Orders: Discontinued Medications Acetaminophen (Tylenol 325mg Tab) 975 mg PO STAT STA Stop: 07/06/18 13:27 - Scribe Statement The provider has reviewed the documentation as recorded by the Scribjanna Means All medical record entries made by the Scribe were at my direction and personally dictated by me. I have reviewed the chart and agree that the record accurately reflects my personal performance of the history, physical exam, medical decision making, and the department course for this patient. I have also personally directed, reviewed, and agree with the discharge instructions and disposition. Disposition/Present on Arrival - Present on Arrival Any Indicators Present on Arrival: No History of DVT/PE: No History of Uncontrolled Diabetes: No Urinary Catheter: Yes History of Decub. Ulcer: No History Surgical Site Infection Following: Orthopedic Procedures - Disposition Have Diagnosis and Disposition been Completed?: Yes Diagnosis: Bradycardia, Elevated digoxin level Disposition: HOSPITALIZED Disposition Time: 18:00 Condition: FAIR
[2018-07-06 13:56] LABS: VENOUS BLOOD GAS BASE EXCESS 9.4 mmol/L (0.0-2.0); VENOUS BLOOD GAS PO2 36 mm/Hg (30-55); VENOUS BLOOD PH 7.48 (7.32-7.43)
[2018-07-06 14:02] LABS: BASO # 0.06 K/mm3 (0.0-2.0); BASO % 0.7 % (0.0-3.0); EOS # 0.3 (0.0-0.7); EOS % 3.4 % (1.5-5.0); GRAN # 4.99 (1.4-6.5); GRAN % 62.2 % (50.0-68.0); HEMOGLOBIN 9.4 g/dL (12.0-16.0); LYMPH # 1.8 (1.2-3.4); LYMPH % 22.1 % (22.0-35.0); MEAN CELL VOLUME 87.1 fl (80.0-105.0); MEAN CORPUSCULAR HEMOGLOBIN 28.1 pg (25.0-35.0); MEAN CORPUSCULAR HGB CONC 32.3 g/dl (31.0-37.0); MEAN PLATELET VOLUME 10.4 fl (7.0-11.0); MONO # 0.9 (0.1-0.6); MONO % 11.6 % (1.0-6.0); RBC 3.34 10^6/uL (3.5-6.1); RED CELL DISTRIBUTION WIDTH 17.6 % (11.5-14.5)
[2018-07-06 14:09] LABS: INR 1.63; PARTIAL THROMBOPLASTIN TIME 33.5 Seconds (25.1-36.5); PROTHROMBIN TIME 18.9 SECONDS (9.4-12.5)
[2018-07-06 14:10] LABS: ALB/GLOB RATIO 0.8 (1.1-1.8); ALBUMIN 2.5 g/dL (3.0-4.8); ALT/SGPT 26 U/L (7-56); AST/SGOT 21 U/L (14-36); BLOOD UREA NITROGEN 8 mg/dL (7-21); CALCIUM 7.9 mg/dL (8.4-10.5); GFR NON-AFRICAN AMERICAN > 60
[2018-07-06] MEDS ORDERED: Potassium Chloride 20 mEq ER Tab PO STA (14:16)
[2018-07-06 14:27] LABS: TROPONIN I 0.06 ng/mL
--- NOTE | 2018-07-06 14:41 | RAD ---
Date of service: 07/06/2018 HISTORY: coug COMPARISON: Chest radiograph dated 06/03/2018. FINDINGS: LUNGS: Pulmonary vascular congestion. Bibasilar atelectasis. PLEURA: Small bilateral pleural effusions. No pneumothorax apparent. CARDIOVASCULAR: Aortic atherosclerotic calcifications. Cardiomediastinal silhouette stably enlarged. OSSEOUS STRUCTURES: Unchanged. VISUALIZED UPPER ABDOMEN: Normal. OTHER FINDINGS: None. IMPRESSION: Small bilateral pleural effusions.
[2018-07-06 15:11] LABS: B-TYPE NATRIURETIC PEPTIDE 7570 pg/mL (0-450)
[2018-07-06] MEDS ORDERED: Oxycodone/Acetaminophen 2.5/325 mg Tab PO PRN (17:26)
--- NOTE | 2018-07-06 17:47 | CP.PCM.HP ---
<Loc Mallory - Last Filed: 07/06/18 18:55> History of Present Illness - History of Present Illness History of Present Illness: Medicine History and Physical for Hospitalist Service, Dr. 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 Pt states that her legs started becoming painful several days ago and were difficult to lift on own, pt states she is bedbound and does not ambulate at Rehab facility. Denies associated numbness/tingling, color changes to lower extremities b/l, or lower leg swelling. Also states that she had been vomiting over the past several days but denies any vomiting episodes today, states she was vomiting up whitish sputum. Denies fever or chills. Admits to dizziness. Denies chest pain, palpitations, shortness of breath, n/v/d/c, abd pain, urinary complaints, or other symptoms currently. 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 PSurghx: R knee replacement and removal of replacement with spacer placed in Apr 2018, s/p I+D during prior [facility] [place] Allergies: Benadryl, Nitroglycerin, PCN, silk tape, chocolate candy Home meds: Simvastatin, Protonix, Mirtazapine, Colace, Lanoxin, Lipitor, Atenolol, Eliquis, Percocet, Tylenol, Xanax; reviewed as per ANNABEL Williamson hx: denies Soc hx: Currently resides at rehab facility PMD: none Present on Admission - Present on Admission Any Indicators Present on Admission: No History of DVT/PE: No History of Uncontrolled Diabetes: No Urinary Catheter: No Decubitus Ulcer Present: No Review of Systems - Constitutional Constitutional: Weight Loss. absent: Chills, Fever - Cardiovascular Cardiovascular: absent: Chest Pain, Dyspnea, Dyspnea on Exertion, Edema, Palpitations - Respiratory Respiratory: absent: Cough, Dyspnea - Gastrointestinal Gastrointestinal: absent: Abdominal Pain, Change in Stool Character, Con stipation, Diarrhea, Nausea, Vomiting - Integumentary Integumentary: Rash - Neurological Neurological: Dizziness Past Patient History - Infectious Disease Hx of Infectious Diseases: None - Tetanus Immunizations Tetanus Immunization: Unknown - Past Medical History & Family History Past Medical History?: Yes - Past Social History Smoking Status: Never Smoked - CARDIAC Hx Cardiac Disorders: Yes Hx Hypertension: Yes - PULMONARY Hx Respiratory Disorders: Yes Hx Pneumonia: Yes - NEUROLOGICAL HX Cerebrovascular Accident: Yes - HEENT Hx HEENT Problems: Yes (LAZY EYE LEFT EYE) Hx Cataracts: Yes - RENAL Hx Chronic Kidney Disease: No - ENDOCRINE/METABOLIC Hx Endocrine Disorders: No - HEMATOLOGICAL/ONCOLOGICAL Hx Blood Transfusions: Yes Hx Blood Transfusion Reaction: No - INTEGUMENTARY Hx Dermatological Problems: Yes Other/Comment: RIGHT KNEE SURGERY -WOUND VAC-KNEE IMMOBILIZER - MUSCULOSKELETAL/RHEUMATOLOGICAL Hx Musculoskeletal Disorders: Yes (ORIF RIGHT TIBIA 1989) Hx Arthritis: Yes Hx Degenerative Joint Disease: Yes Hx Falls: Yes Hx Fractures: Yes (RIGHT LEG ,ANKLE) Hx Osteoporosis: Yes Hx Unsteady Gait: Yes - GASTROINTESTINAL Hx Gastrointestinal Disorders: Yes (HEMORRHOIDS,CONSTIPATION) - GENITOURINARY/GYNECOLOGICAL Hx Genitourinary Disorders: Yes (PMB) - PSYCHIATRIC Hx Psychophysiologic Disorder: No Hx Substance Use: No - SURGICAL HISTORY Hx Mastectomy: No Other/Comment: ORIF RIGHT TIBIA 1989,BILATERAL CATARACT SX, - ANESTHESIA Hx Anesthesia Reactions: No Hx Malignant Hyperthermia: No Meds Allergies/Adverse Reactions: Allergies Allergy/AdvReac Type Severity Reaction Status Date / Time diphenhydramine Allergy Severe unknown Verified 07/06/18 12:41 [From Benadryl] nitroglycerin Allergy Severe ANAPHYLAXIS Verified 07/06/18 12:41 pcn Allergy Severe RASH Uncoded 07/06/18 12:41 silk tape Allergy blisters Uncoded 07/06/18 12:41 chocolate candy AdvReac Severe HEADACHE Uncoded 07/06/18 12:41 Physical Exam - Constitutional Appears: Non-toxic, No Acute Distress - Head Exam Head Exam: ATRAUMATIC, NORMOCEPHALIC - Eye Exam Eye Exam: EOMI, Normal appearance, PERRL - ENT Exam ENT Exam: Mucous Membranes Moist - Respiratory Exam Respiratory Exam: Clear to Auscultation Bilateral, NORMAL BREATHING PATTERN. absent: Rales, Rhonchi, Wheezes - Cardiovascular Exam Cardiovascular Exam: REGULAR RHYTHM, +S1, +S2. absent: Gallop, Rubs, Systolic Murmur - GI/Abdominal Exam GI & Abdominal Exam: Normal Bowel Sounds, Soft. absent: Distended, Guarding, Organomegaly, Rigid, Tenderness - Extremities Exam Extremities exam: Positive for: normal capillary refill, normal inspection, tenderness (to palpation of LE distal to knees b/l), pedal pulses present. Negative for: pedal edema - Neurological Exam Neurological exam: Alert, CN II-XII Intact, Oriented x3 - Skin Skin Exam: Dry, Intact, Normal Color, Warm Results - Vital Signs Recent Vital Signs: Last Vital Signs Temp 97.8 F 07/06/18 12:45 Pulse 56 L 07/06/18 17:18 Resp 18 07/06/18 17:18 BP 113/63 07/06/18 17:18 Pulse Ox 98 07/06/18 15:00 - Labs Result Diagrams: 07/06/18 13:50 07/06/18 13:50 Labs: Laboratory Results - last 24 hr 07/06/18 07/06/18 07/06/18 13:50 13:50 13:50 WBC 8.0 RBC 3.34 L Hgb 9.4 L Hct 29.1 L MCV 87.1 MCH 28.1 MCHC 32.3 RDW 17.6 H Plt Count 241 MPV 10.4 Gran % 62.2 Lymph % (Auto) 22.1 [place] % (Auto) 11.6 H Eos % (Auto) 3.4 Baso % (Auto) 0.7 Gran # 4.99 Lymph # (Auto) 1.8 [place] # (Auto) 0.9 H Eos # (Auto) 0.3 Baso # (Auto) 0.06 PT 18.9 H INR 1.63 APTT 33.5 pO2 VBG pH VBG pCO2 VBG HCO3 VBG Total CO2 VBG O2 Sat (Calc) VBG Base Excess VBG Potassium Sodium 130 L Chloride 95 L Glucose Lactate FiO2 Potassium 3.2 L Carbon Dioxide 31 Anion Gap 7 L BUN 8 Creatinine 0.4 L Est GFR ( Amer) > 60 Est GFR (Non-Af Amer) > 60 Random Glucose 85 Calcium 7.9 L Total Bilirubin 0.9 AST 21 ALT 26 Alkaline Phosphatase 93 Lactate Dehydrogenase 429 Total Creatine Kinase < 20 L Troponin I 0.06 D NT-Pro-B Natriuret Pep 7570 H Total Protein 5.6 L Albumin 2.5 L Globulin 3.1 Albumin/Globulin Ratio 0.8 L Venous Blood Potassium Digoxin 07/06/18 07/06/18 13:50 13:50 WBC RBC Hgb Hct MCV MCH MCHC RDW Plt Count MPV Gran % Lymph % (Auto) [place] % (Auto) Eos % (Auto) Baso % (Auto) Gran # Lymph # (Auto) [place] # (Auto) Eos # (Auto) Baso # (Auto) PT INR APTT pO2 36 VBG pH 7.48 H VBG pCO2 46.0 VBG HCO3 34.3 H VBG Total CO2 35.7 H VBG O2 Sat (Calc) 73.8 H VBG Base Excess 9.4 H VBG Potassium 3.4 L Sodium 132.0 Chloride 97.0 L Glucose 83 Lactate 1.4 FiO2 21.0 Potassium Carbon Dioxide Anion Gap BUN Creatinine Est GFR ( Amer) Est GFR (Non-Af Amer) Random Glucose Calcium Total Bilirubin AST ALT Alkaline Phosphatase Lactate Dehydrogenase Total Creatine Kinase Troponin I NT-Pro-B Natriuret Pep Total Protein Albumin Globulin Albumin/Globulin Ratio Venous Blood Potassium 3.4 L Digoxin 2.5 H* Assessment & Plan - Assessment and Plan (Free Text) Assessment: This is a 82 y o female with PMhx HTN, CAD, A-fib previously on Warfarin and now on Eliquis currently, OA, and 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 Admitted for CHF exacerbation, bradycardia. Plan: CHF exacerbation -Admit to tele -Trop elevated at 0.06, repeat trops x2 pending, will continue to trend -BNP 7570 on admission, CK negative -Cardio consulted (Dr. Medrano), recs appreciated -CXR: small b/l pleural effusions -EKG: HR 54, A-fib with slow ventricular response, demonstrating signs of digoxin toxicity -Digoxin level 2.5, will hold home Digoxin at this time, repeat level pending in am -Strict I's/O's, daily weights -Lasix 20 mg IVP daily -D Hx A-fib -C/w Eliquis 2.5 mg PO bid Hx CAD -C/w Eliquis -Will hold Atenolol at this time -Trop 0.06, cont to trend repeat trops x2 Hx knee replacement/periprosthetic infection/ bilateral leg pain -[place] [facility] [place]Podiatry consulted for wound care (Dr. Sena), recs appreciated -Prelim Doppler studies demonstrated no evid of DVT b/l -Percocet, Tylenol prn for pain Hx anxiety/mood disorder C/w home med Mirtazapine daily Xanax daily DVT/GI ppx: Eliquis/Protonix Pt seen, examined with, and plan discussed with Dr. Hernandez, attending physician. Loc Mallory DO PGY-1, Refining Machine Operator Pager #[phone] <Jay Hernandez - Last Filed: 07/07/18 07:38> Results - Vital Signs Recent Vital Signs: Last Vital Signs Temp 98.3 F 07/07/18 05:45 Pulse 56 L 07/07/18 05:45 Resp 20 07/07/18 05:45 BP 131/62 07/07/18 05:45 Pulse Ox 98 07/07/18 05:45 - Labs Result Diagrams: 07/06/18 13:50 07/06/18 13:50 Labs: Laboratory Results - last 24 hr 07/06/18 07/06/18 07/06/18 13:50 13:50 13:50 WBC 8.0 RBC 3.34 L Hgb 9.4 L Hct 29.1 L MCV 87.1 MCH 28.1 MCHC 32.3 RDW 17.6 H Plt Count 241 MPV 10.4 Gran % 62.2 Lymph % (Auto) 22.1 [place] % (Auto) 11.6 H Eos % (Auto) 3.4 Baso % (Auto) 0.7 Gran # 4.99 Lymph # (Auto) 1.8 [place] # (Auto) 0.9 H Eos # (Auto) 0.3 Baso # (Auto) 0.06 PT 18.9 H INR 1.63 APTT 33.5 pO2 VBG pH VBG pCO2 VBG HCO3 VBG Total CO2 VBG O2 Sat (Calc) VBG Base Excess VBG Potassium Sodium 130 L Chloride 95 L Glucose Lactate FiO2 Potassium 3.2 L Carbon Dioxide 31 Anion Gap 7 L BUN 8 Creatinine 0.4 L Est GFR ( Amer) > 60 Est GFR (Non-Af Amer) > 60 Random Glucose 85 Calcium 7.9 L Total Bilirubin 0.9 AST 21 ALT 26 Alkaline Phosphatase 93 Lactate Dehydrogenase 429 Total Creatine Kinase < 20 L Troponin I 0.06 D NT-Pro-B Natriuret Pep 7570 H Total Protein 5.6 L Albumin 2.5 L Globulin 3.1 Albumin/Globulin Ratio 0.8 L Venous Blood Potassium Digoxin 07/06/18 07/06/18 07/06/18 13:50 13:50 20:20 WBC RBC Hgb Hct MCV MCH MCHC RDW Plt Count MPV Gran % Lymph % (Auto) [place] % (Auto) Eos % (Auto) Baso % (Auto) Gran # Lymph # (Auto) [place] # (Auto) Eos # (Auto) Baso # (Auto) PT INR APTT pO2 36 VBG pH 7.48 H VBG pCO2 46.0 VBG HCO3 34.3 H VBG Total CO2 35.7 H VBG O2 Sat (Calc) 73.8 H VBG Base Excess 9.4 H VBG Potassium 3.4 L Sodium 132.0 Chloride 97.0 L Glucose 83 Lactate 1.4 FiO2 21.0 Potassium Carbon Dioxide Anion Gap BUN Creatinine Est GFR ( Amer) Est GFR (Non-Af Amer) Random Glucose Calcium Total Bilirubin AST ALT Alkaline Phosphatase Lactate Dehydrogenase Total Creatine Kinase Troponin I 0.06 NT-Pro-B Natriuret Pep Total Protein Albumin Globulin Albumin/Globulin Ratio Venous Blood Potassium 3.4 L Digoxin 2.5 H* 07/07/18 01:58 WBC RBC Hgb Hct MCV MCH MCHC RDW Plt Count MPV Gran % Lymph % (Auto) [place] % (Auto) Eos % (Auto) Baso % (Auto) Gran # Lymph # (Auto) [place] # (Auto) Eos # (Auto) Baso # (Auto) PT INR APTT pO2 VBG pH VBG pCO2 VBG HCO3 VBG Total CO2 VBG O2 Sat (Calc) VBG Base Excess VBG Potassium Sodium Chloride Glucose Lactate FiO2 Potassium Carbon Dioxide Anion Gap BUN Creatinine Est GFR ( Amer) Est GFR (Non-Af Amer) Random Glucose Calcium Total Bilirubin AST ALT Alkaline Phosphatase Lactate Dehydrogenase Total Creatine Kinase Troponin I 0.06 NT-Pro-B Natriuret Pep Total Protein Albumin Globulin Albumin/Globulin Ratio Venous Blood Potassium Digoxin Attending/Attestation - Attestation I have personally seen and examined this patient.: Yes I have fully participated in the care of the patient.: Yes I have reviewed all pertinent clinical information: Yes Notes (Text): 07/06/18 82 year old female with past medical history of CAD, hypertension, afib on eliquis, and history of right knee replacement with history of periprosthetic infection s/p antibiotics who presents from ID with complaint of nausea, vomiting and lower extremity pain/swelling. Found to have elevated digoxin level, elevated pbnp, bradycardia and small bilateral pleural effusions on CXR. Will admit to telemetry unit. Start on iv lasix. Hold digoxin and metoprolol. Repeat digoxin level in AM. Trend troponins. Cardiology evaluation is requeste d. Will follow up on LE dopplers and request podiatry evaluation for follow up. As per ER, patient / family recent requesting to change primary attending to Dr. Williamson, whom we are covering today, for establishing care. Will ask Dr. Williamson tomorrow. Jay Hernandez MD Hospitalist.
--- NOTE | 2018-07-06 20:12 | CARD ---
APPROVED REPORT Date of service: 07/06/2018 EKG Measurement Heart [id number] <Conclusion> Atrial fibrillation with slow ventricular response ST & T wave abnormality, consider inferior ischemia or digitalis effect Abnormal ECG
[2018-07-06 20:18] VITALS: BMI 18.1
[2018-07-07 08:01] LABS: BASO # 0.03 K/mm3 (0.0-2.0); BASO % 0.4 % (0.0-3.0); EOS # 0.3 (0.0-0.7); EOS % 4.4 % (1.5-5.0); GRAN # 3.95 (1.4-6.5); HEMOGLOBIN 8.9 g/dL (12.0-16.0); LYMPH # 1.9 (1.2-3.4); LYMPH % 27.2 % (22.0-35.0); MEAN CELL VOLUME 87.1 fl (80.0-105.0); MEAN CORPUSCULAR HGB CONC 32.1 g/dl (31.0-37.0); MEAN PLATELET VOLUME 10.4 fl (7.0-11.0); MONO # 0.7 (0.1-0.6); RBC 3.18 10^6/uL (3.5-6.1); RED CELL DISTRIBUTION WIDTH 17.6 % (11.5-14.5); WHITE BLOOD COUNT 6.8 10^3/uL (4.5-11.0)
[2018-07-07 08:31] LABS: ALB/GLOB RATIO 0.8 (1.1-1.8); ALBUMIN 2.3 g/dL (3.0-4.8); ALT/SGPT 19 U/L (7-56); AST/SGOT 22 U/L (14-36); BLOOD UREA NITROGEN 7 mg/dL (7-21); CALCIUM 7.6 mg/dL (8.4-10.5); GFR NON-AFRICAN AMERICAN > 60
[2018-07-07] MEDS ORDERED: Potassium Chloride 20 mEq ER Tab PO ONE ×2 (08:38→15:00)
[2018-07-07] MEDS: Pantoprazole 40 mg EC Tab PO SCH (09:21)
--- NOTE | 2018-07-07 10:21 | CP.PCM.CON ---
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 R leg started becoming painful several days ago. She could not lift left knee because of weakness. Pt was recently discharged from [facility] earlier this month for treatment for osteomyelitis of R knee. She had R knee replacement on February 2018. 7 weeks later, she developed an open wound with hematoma, taken back to OR for I&D and polymore exchange. Itraoperatuve culture grew grew vancomycin-resistant enterococcus. Subsequently in Apr 2018, she underwent explantation of the implant with antibiotic spacer placement (containing vancomycin and gentamycin in cement) Apr 2018. She was on zyvox for VRE, but developed JOCELYNE and thrombocytopenia, then she was switched to daptomycin, completed a total of 6 weeks of antibiotics. Further I&D for necrotic tissue on Jun 04 2018 showed pseudomonas, she started Merem and hyperbaric oxygen treatment. Last HBO session on Saturday. ROS: (+) Vomiting over the past several days but denies any vomiting episodes x 2d, stating she was vomiting up whitish sputum. (+) feeling cold. Denies fever. (+) dizziness. Denies chest pain, palpitations, shortness of breath, n/v/d/c, abd pain, urinary complaints, or other symptoms currently. 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 and spacer placement BMI 18poor nutritional status and thrombocytopenia PSurghx: R knee replacement and removal of replacement with spacer placed in Apr 2018, s/p I+D during prior [facility] admission Fam hx: denies Soc hx: Currently resides at rehab facility Allergies: Benadryl, Nitroglycerin, PCN, silk tape, chocolate candy Home meds: Simvastatin, Protonix, Mirtazapine, Colace, Lanoxin, Lipitor, Atenolol, Eliquis, Percocet, Tylenol, Xanax; reviewed as per MAR PMD: none Past Patient History - Infectious Disease Hx of Infectious Diseases: None - Tetanus Immunizations Tetanus Immunization: Unknown - Past Medical History & Family History Past Medical History?: Yes - Past Social History Smoking Status: Never Smoked - CARDIAC Hx Cardiac Disorders: Yes Hx Hypertension: Yes - PULMONARY Hx Respiratory Disorders: Yes Hx Pneumonia: Yes - NEUROLOGICAL HX Cerebrovascular Accident: Yes - HEENT Hx HEENT Problems: Yes (LAZY EYE LEFT EYE) Hx Cataracts: Yes - RENAL Hx Chronic Kidney Disease: No - ENDOCRINE/METABOLIC Hx Endocrine Disorders: No - HEMATOLOGICAL/ONCOLOGICAL Hx Blood Disorders: Yes - INTEGUMENTARY Hx Dermatological Problems: Yes Other/Comment: RIGHT KNEE SURGERY -WOUND VAC-KNEE IMMOBILIZER - MUSCULOSKELETAL/RHEUMATOLOGICAL Hx Falls: No - GASTROINTESTINAL Hx Gastrointestinal Disorders: Yes (HEMORRHOIDS,CONSTIPATION) - GENITOURINARY/GYNECOLOGICAL Hx Genitourinary Disorders: Yes (PMB) - PSYCHIATRIC Hx Psychophysiologic Disorder: No - SURGICAL HISTORY Hx Mastectomy: No Other/Comment: ORIF RIGHT TIBIA 1989,BILATERAL CATARACT SX, - ANESTHESIA Hx Anesthesia Reactions: No Hx Malignant Hyperthermia: No Meds Allergies/Adverse Reactions: Allergies Allergy/AdvReac Type Severity Reaction Status Date / Time diphenhydramine Allergy Severe unknown Verified 07/06/18 12:41 [From Benadryl] nitroglycerin Allergy Severe ANAPHYLAXIS Verified 07/06/18 12:41 pcn Allergy Severe RASH Uncoded 07/06/18 12:41 silk tape Allergy blisters Uncoded 07/06/18 12:41 chocolate candy AdvReac Severe HEADACHE Uncoded 07/06/18 12:41 - Medications Medications: Current Medications Acetaminophen (Tylenol 325mg Tab) 650 mg PO Q6H PRN PRN Reason: Pain, moderate (4-7) Last Admin: 07/07/18 09:56 Dose: 650 mg Alprazolam (Xanax) 0.25 mg PO DAILY [facility]; Protocol Stop: 07/14/18 10:01 Last Admin: 07/07/18 09:56 Dose: Not Given Apixaban (Eliquis) 2.5 mg PO Q12 [facility]; Protocol Last Admin: 07/07/18 09:21 Dose: 2.5 mg Atorvastatin Calcium (Lipitor) 20 mg PO HS [facility] Docusate Sodium (Colace) 100 mg PO BID [facility] Last Admin: 07/07/18 09:21 Dose: 100 mg Furosemide (Lasix) 20 mg IVP DAILY [facility] Last Admin: 07/07/18 09:22 Dose: 20 mg Mirtazapine (Remeron) 15 mg PO HS [facility] Oxycodone/Acetaminophen (Percocet 2.5/325 Mg Tab) 1 tab PO Q6H PRN PRN Reason: Pain, severe (8-10) Pantoprazole Sodium (Protonix Ec Tab) 40 mg PO DAILY [facility] Last Admin: 07/07/18 09:21 Dose: 40 mg Physical Exam - Constitutional Appears: Non-toxic Additional comments: In tears because of pain but refuse percocet for fear of drowsiness - Head Exam Head Exam: ATRAUMATIC, NORMAL INSPECTION, NORMOCEPHALIC - Eye Exam Eye Exam: EOMI, Normal appearance, PERRL. absent: Scleral icterus Pupil Exam: NORMAL ACCOMODATION - ENT Exam ENT Exam: Mucous Membranes Moist - Neck Exam Additional comments: supple - Respiratory Exam Respiratory Exam: Clear to Auscultation Bilateral, NORMAL BREATHING PATTERN. absent: Rales, Rhonchi, Wheezes - Cardiovascular Exam Cardiovascular Exam: REGULAR RHYTHM, +S1, +S2. absent: Systolic Murmur - GI/Abdominal Exam GI & Abdominal Exam: Soft. absent: Firm, Guarding, Rigid, Tenderness - Extremities Exam Extremities exam: Negative for: calf tenderness Additional comments: R knee: Open wound 3x3 inch with purulent drainage, covered with dressing. R ankle: No open wound but tender to touch L knee and L ankle unremarkable RLE Motor 1/5 limited by pain; LLE 1/5 because of weakness - Back Exam Back exam: absent: CVA tenderness (L), CVA tenderness (R) - Neurological Exam Neurological exam: Alert, Oriented x3 - Psychiatric Exam Psychiatric exam: Normal Affect, Normal Mood Additional comments: In pain - Skin Skin Exam: Dry, Warm Results - Vital Signs Recent Vital Signs: Last Vital Signs Temp 98.3 F 07/07/18 05:45 Pulse 56 L 07/07/18 05:45 Resp 20 07/07/18 05:45 BP 130/82 07/07/18 09:22 Pulse Ox 98 07/07/18 05:45 - Labs Result Diagrams: 07/07/18 07:15 07/07/18 07:15 Labs: Laboratory Results - last 24 hr 07/06/18 07/06/18 07/06/18 13:50 13:50 13:50 WBC 8.0 RBC 3.34 L Hgb 9.4 L Hct 29.1 L MCV 87.1 MCH 28.1 MCHC 32.3 RDW 17.6 H Plt Count 241 MPV 10.4 Gran % 62.2 Lymph % (Auto) 22.1 Sabine % (Auto) 11.6 H Eos % (Auto) 3.4 Baso % (Auto) 0.7 Gran # 4.99 Lymph # (Auto) 1.8 Sabine # (Auto) 0.9 H Eos # (Auto) 0.3 Baso # (Auto) 0.06 ESR PT 18.9 H INR 1.63 APTT 33.5 pO2 VBG pH VBG pCO2 VBG HCO3 VBG Total CO2 VBG O2 Sat (Calc) VBG Base Excess VBG Potassium Sodium 130 L Chloride 95 L Glucose Lactate FiO2 Potassium 3.2 L Carbon Dioxide 31 Anion Gap 7 L BUN 8 Creatinine 0.4 L Est GFR ( Amer) > 60 Est GFR (Non-Af Amer) > 60 Random Glucose 85 Calcium 7.9 L Phosphorus Magnesium Total Bilirubin 0.9 AST 21 ALT 26 Alkaline Phosphatase 93 Lactate Dehydrogenase 429 Total Creatine Kinase < 20 L Troponin I 0.06 D NT-Pro-B Natriuret Pep 7570 H Total Protein 5.6 L Albumin 2.5 L Globulin 3.1 Albumin/Globulin Ratio 0.8 L Venous Blood Potassium Digoxin 07/06/18 07/06/18 07/06/18 13:50 13:50 20:20 WBC RBC Hgb Hct MCV MCH MCHC RDW Plt Count MPV Gran % Lymph % (Auto) Sabine % (Auto) Eos % (Auto) Baso % (Auto) Gran # Lymph # (Auto) Sabine # (Auto) Eos # (Auto) Baso # (Auto) ESR PT INR APTT pO2 36 VBG pH 7.48 H VBG pCO2 46.0 VBG HCO3 34.3 H VBG Total CO2 35.7 H VBG O2 Sat (Calc) 73.8 H VBG Base Excess 9.4 H VBG Potassium 3.4 L Sodium 132.0 Chloride 97.0 L Glucose 83 Lactate 1.4 FiO2 21.0 Potassium Carbon Dioxide Anion Gap BUN Creatinine Est GFR ( Amer) Est GFR (Non-Af Amer) Random Glucose Calcium Phosphorus Magnesium Total Bilirubin AST ALT Alkaline Phosphatase Lactate Dehydrogenase Total Creatine Kinase Troponin I 0.06 NT-Pro-B Natriuret Pep Total Protein Albumin Globulin Albumin/Globulin Ratio Venous Blood Potassium 3.4 L Digoxin 2.5 H* 07/07/18 07/07/18 07/07/18 01:58 07:00 07:15 WBC 6.8 RBC 3.18 L Hgb 8.9 L Hct 27.7 L MCV 87.1 MCH 28.0 MCHC 32.1 RDW 17.6 H Plt Count 241 MPV 10.4 Gran % 58.0 Lymph % (Auto) 27.2 Sabine % (Auto) 10.0 H Eos % (Auto) 4.4 Baso % (Auto) 0.4 Gran # 3.95 Lymph # (Auto) 1.9 Sabine # (Auto) 0.7 H Eos # (Auto) 0.3 Baso # (Auto) 0.03 ESR 10 PT INR APTT pO2 VBG pH VBG pCO2 VBG HCO3 VBG Total CO2 VBG O2 Sat (Calc) VBG Base Excess VBG Potassium Sodium Chloride Glucose Lactate FiO2 Potassium Carbon Dioxide Anion Gap BUN Creatinine Est GFR ( Amer) Est GFR (Non-Af Amer) Random Glucose Calcium Phosphorus Magnesium Total Bilirubin AST ALT Alkaline Phosphatase Lactate Dehydrogenase Total Creatine Kinase Troponin I 0.06 NT-Pro-B Natriuret Pep Total Protein Albumin Globulin Albumin/Globulin Ratio Venous Blood Potassium Digoxin 07/07/18 07/07/18 07:15 07:15 WBC RBC Hgb Hct MCV MCH MCHC RDW Plt Count MPV Gran % Lymph % (Auto) Sabine % (Auto) Eos % (Auto) Baso % (Auto) Gran # Lymph # (Auto) Sabine # (Auto) Eos # (Auto) Baso # (Auto) ESR PT INR APTT pO2 VBG pH VBG pCO2 VBG HCO3 VBG Total CO2 VBG O2 Sat (Calc) VBG Base Excess VBG Potassium Sodium 132 Chloride 96 L Glucose Lactate FiO2 Potassium 3.5 L Carbon Dioxide 34 H Anion Gap 6 L BUN 7 Creatinine 0.5 L Est GFR ( Amer) > 60 Est GFR (Non-Af Amer) > 60 Random Glucose 76 Calcium 7.6 L Phosphorus 3.4 Magnesium 1.8 Total Bilirubin 0.8 AST 22 ALT 19 Alkaline Phosphatase 88 Lactate Dehydrogenase Total Creatine Kinase Troponin I NT-Pro-B Natriuret Pep Total Protein 5.1 L Albumin 2.3 L Globulin 2.8 Albumin/Globulin Ratio 0.8 L Venous Blood Potassium Digoxin 2.3 H* Assessment & Plan - Assessment and Plan (Free Text) Plan: Chronically infected prostetic R knee joint, cannot 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 Poor wound healing likely complicated by poor nutrition state (underweight, Albumin 2.3) S/P explantation of R knee prosthesis with antibiotic spacer containing vanco/gentamycin (04/08), completed 6 weeks course of Zyvox/Daptomycin antibiotics 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 Mi <Mehrdad Mi S - Last Filed: 07/07/18 16:06> Meds - Medications Medications: Current Medications Acetaminophen (Tylenol 325mg Tab) 650 mg PO Q6H PRN PRN Reason: Pain, moderate (4-7) Last Admin: 07/07/18 09:56 Dose: 650 mg Alprazolam (Xanax) 0.25 mg PO DAILY [facility]; Protocol Stop: 07/14/18 10:01 Last Admin: 07/07/18 09:56 Dose: Not Given Apixaban (Eliquis) 2.5 mg PO Q12 [facility]; Protocol Last Admin: 07/07/18 09:21 Dose: 2.5 mg Atorvastatin Calcium (Lipitor) 20 mg PO HS [facility] Docusate Sodium (Colace) 100 mg PO BID [facility] Last Admin: 07/07/18 09:21 Dose: 100 mg Furosemide (Lasix) 20 mg IVP DAILY [facility] Last Admin: 07/07/18 09:22 Dose: 20 mg Meropenem (Merrem Iv 1 Gm Premix) 1 gm in 50 mls @ 100 mls/hr IVPB Q8 [facility]; Protocol Stop: 07/08/18 06:29 Last Admin: 07/07/18 13:21 Dose: 100 mls/hr Sodium Chloride (Sodium Chloride 0.9%) 1,000 mls @ 50 mls/hr IV .Q20H [facility] Stop: 07/08/18 23:59 Last Admin: 07/07/18 13:22 Dose: 50 mls/hr Daptomycin 472 mg/ Sodium (Chloride) 100 mls @ 200 mls/hr IV Q24H [facility]; Protocol Stop: 07/14/18 14:01 Last Admin: 07/07/18 15:45 Dose: 200 mls/hr Mirtazapine (Remeron) 15 mg PO HS [facility] Oxycodone/Acetaminophen (Percocet 2.5/325 Mg Tab) 1 tab PO Q6H PRN PRN Reason: Pain, severe (8-10) Pantoprazole Sodium (Protonix Ec Tab) 40 mg PO DAILY [facility] Last Admin: 07/07/18 09:21 Dose: 40 mg Results - Vital Signs Recent Vital Signs: Last Vital Signs Temp 98 F 07/07/18 12:00 Pulse 54 L 07/07/18 14:00 Resp 18 07/07/18 12:00 BP 111/61 07/07/18 12:00 Pulse Ox 98 07/07/18 05:45 - Labs Result Diagrams: 07/07/18 07:15 07/07/18 07:15 Labs: Laboratory Results - last 24 hr 07/06/18 07/07/18 07/07/18 20:20 01:58 07:00 WBC RBC Hgb Hct MCV MCH MCHC RDW Plt Count MPV Gran % Lymph % (Auto) Sabine % (Auto) Eos % (Auto) Baso % (Auto) Gran # Lymph # (Auto) Sabine # (Auto) Eos # (Auto) Baso # (Auto) ESR 10 Sodium Potassium Chloride Carbon Dioxide Anion Gap BUN Creatinine Est GFR ( Amer) Est GFR (Non-Af Amer) Random Glucose Calcium Phosphorus Magnesium Total Bilirubin AST ALT Alkaline Phosphatase Total Creatine Kinase Troponin I 0.06 0.06 C-Reactive Protein C-React Prot High Sens Total Protein Albumin Globulin Albumin/Globulin Ratio Digoxin 07/07/18 07/07/18 07/07/18 07:00 07:15 07:15 WBC 6.8 RBC 3.18 L Hgb 8.9 L Hct 27.7 L MCV 87.1 MCH 28.0 MCHC 32.1 RDW 17.6 H Plt Count 241 MPV 10.4 Gran % 58.0 Lymph % (Auto) 27.2 Sabine % (Auto) 10.0 H Eos % (Auto) 4.4 Baso % (Auto) 0.4 Gran # 3.95 Lymph # (Auto) 1.9 Sabine # (Auto) 0.7 H Eos # (Auto) 0.3 Baso # (Auto) 0.03 ESR Sodium 132 Potassium 3.5 L Chloride 96 L Carbon Dioxide 34 H Anion Gap 6 L BUN 7 Creatinine 0.5 L Est GFR ( Amer) > 60 Est GFR (Non-Af Amer) > 60 Random Glucose 76 Calcium 7.6 L Phosphorus 3.4 Magnesium 1.8 Total Bilirubin 0.8 AST 22 ALT 19 Alkaline Phosphatase 88 Total Creatine Kinase Troponin I C-Reactive Protein C-React Prot High Sens > 15.00 H Total Protein 5.1 L Albumin 2.3 L Globulin 2.8 Albumin/Globulin Ratio 0.8 L Digoxin 07/07/18 07/07/18 07/07/18 07:15 10:00 13:03 WBC RBC Hgb Hct MCV MCH MCHC RDW Plt Count MPV Gran % Lymph % (Auto) Sabine % (Auto) Eos % (Auto) Baso % (Auto) Gran # Lymph # (Auto) Sabine # (Auto) Eos # (Auto) Baso # (Auto) ESR Sodium Potassium Chloride Carbon Dioxide Anion Gap BUN Creatinine Est GFR ( Amer) Est GFR (Non-Af Amer) Random Glucose Calcium Phosphorus Magnesium Total Bilirubin AST ALT Alkaline Phosphatase Total Creatine Kinase < 20 L Troponin I C-Reactive Protein 37.90 H C-React Prot High Sens Total Protein Albumin Globulin Albumin/Globulin Ratio Digoxin 2.3 H* Assessment & Plan - Assessment and Plan (Free Text) Plan: Infectious diseases Attending Physician Attestation Patient seen and examined, discussed with [employer] 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 I have reviewed the patient's history of present illness, past medical, social, personal and family histories, pertinent physical exam findings, course so far in this hospital admission, pertinent laboratory and imaging results. I agree with the above findings, assessment and plan. In addition, will start Daptomycin and Merrem for this patient with probable right knee surgical site infection associated with previous prosthetic knee which was infected with VRE, S/P removal. Follow up wound and blood cx. Will get CPK and pay close attention since patient is also on Lipitor. Follow up further plans of Podiatry and Ortho. Will need better nutrition so her surgical wound will heal - patient has poor nutrition.
[2018-07-07] MEDS ORDERED: Vancomycin 500 mg Inj IVPB SCH (11:15)
[2018-07-07] MEDS ORDERED: Vancomycin 1gm in NS 250ml 1 GM/250 ML BAG IVPB SCH (11:30)
--- NOTE | 2018-07-07 11:31 | CP.PCM.APN ---
Subjective - Date & Time of Evaluation Date of Evaluation: 07/07/18 Time of Evaluation: 09:50 - Subjective Subjective: 82 year old female (DNR, DNI), whose past medical history includes knee replacement s/p infection, hypertension, CAD, and afib on eloquis, who presents to the emergency department complaining of vomiting and bilateral leg pain that has worsened the last few days. Pt seen and examined at [facility]. Is currently complaining of 8/10 pain under right knee.. Patient denies any fever, chills, chest pain, shortness of breath, nausea, diarrhea, back pain, neck pain, headache, dizziness, or any other complaints. Review of Systems - Constitutional Constitutional: As Per HPI - EENT Eyes: As Per HPI Ears: As Per HPI Nose/Mouth/Throat: As Per HPI - Breasts Breasts: As Per HPI - Cardiovascular Cardiovascular: As Per HPI - Respiratory Respiratory: As Per HPI - Gastrointestinal Gastrointestinal: As Per HPI - Genitourinary Genitourinary: As Per HPI - Reproductive: Female Reproductive:Female: As Per HPI - Menstruation Menstruation: As Per HPI - Musculoskeletal Musculoskeletal: As Per HPI - Integumentary Integumentary: As Per HPI - Neurological Neurological: As Per HPI - Psychiatric Psychiatric: As Per HPI - Endocrine Endocrine: As Per HPI Objective - Vital Signs/Intake and Output Vital Signs (last 24 hours): Temp Pulse Resp BP Pulse Ox 98.3 F 56 L 20 130/82 98 07/07/18 05:45 07/07/18 05:45 07/07/18 05:45 07/07/18 09:22 07/07/18 05:45 Intake and Output: 07/07/18 07/07/18 06:59 18:59 Intake Total 300 Output Total 650 Balance -350 - Medications Medications: Current Medications Acetaminophen (Tylenol 325mg Tab) 650 mg PO Q6H PRN PRN Reason: Pain, moderate (4-7) Last Admin: 07/07/18 09:56 Dose: 650 mg Alprazolam (Xanax) 0.25 mg PO DAILY [facility]; Protocol Stop: 07/14/18 10:01 Last Admin: 07/07/18 09:56 Dose: Not Given Apixaban (Eliquis) 2.5 mg PO Q12 [facility]; Protocol Last Admin: 07/07/18 09:21 Dose: 2.5 mg Atorvastatin Calcium (Lipitor) 20 mg PO HS [facility] Docusate Sodium (Colace) 100 mg PO BID [facility] Last Admin: 07/07/18 09:21 Dose: 100 mg Furosemide (Lasix) 20 mg IVP DAILY [facility] Last Admin: 07/07/18 09:22 Dose: 20 mg Meropenem (Merrem Iv 1 Gm Premix) 1 gm in 50 mls @ 100 mls/hr IVPB Q8 [facility]; Protocol Stop: 07/08/18 06:29 Vancomycin HCl (Vancomycin 1gm) 1 gm in 250 mls @ 167 mls/hr IVPB Q12H [facility] Mirtazapine (Remeron) 15 mg PO HS [facility] Oxycodone/Acetaminophen (Percocet 2.5/325 Mg Tab) 1 tab PO Q6H PRN PRN Reason: Pain, severe (8-10) Pantoprazole Sodium (Protonix Ec Tab) 40 mg PO DAILY [facility] Last Admin: 07/07/18 09:21 Dose: 40 mg - Labs Labs: 07/07/18 07:15 07/07/18 07:15 PT 18.9 SECONDS (9.4-12.5) H 07/06/18 13:50 INR 1.63 07/06/18 13:50 APTT 33.5 Seconds (25.1-36.5) 07/06/18 13:50 - Constitutional Appears: Well - Head Exam Head Exam: ATRAUMATIC - Eye Exam Eye Exam: Normal appearance Pupil Exam: NORMAL ACCOMODATION - ENT Exam ENT Exam: Mucous Membranes Moist - Neck Exam Neck Exam: Full ROM, Normal Inspection - Respiratory Exam Respiratory Exam: Decreased Breath Sounds, NORMAL BREATHING PATTERN - Cardiovascular Exam Cardiovascular Exam: Irregular Rhythm, +S1, +S2 - GI/Abdominal Exam GI & Abdominal Exam: Soft, Normal Bowel Sounds - Rectal Exam Rectal Exam: Deferred - Extremities Exam Extremities Exam: Full ROM, Pedal Edema Additional comments: right leg with limited ROM due to increased pain +2 b/l edema noted to lower extremities. - Back Exam Back Exam: NORMAL INSPECTION - Neurological Exam Neurological Exam: Oriented x3 - Skin Skin Exam: Dry, Intact, Normal Color, Warm
--- NOTE | 2018-07-07 12:24 | US ---
PROCEDURE: Lower extremity DENNIS exam HISTORY: Peripheral vascular disease with ischemic pain PHYSICIAN(S): Satnam Baltazar MD. FINDINGS: The exam is extremely limited by the patient's inability to cooperate and tolerate compression. The PVR waveforms are very limited by artifact The resting DENNIS's are normal: right, 1.27and left, 1.07 The brachial systolic pressures are symmetric. No significant segmental pressure gradients are seen The PVR was upstrokes are relatively normal at all levels bilaterally to the ankle. Waveform analysis is very limited by artifact IMPRESSION: 1. Normal ABIs at rest 2. Very limited study due to artifact and the patient's inability to cooperate
--- NOTE | 2018-07-07 12:26 | US ---
HISTORY: Leg pain and swelling. Evaluate for DVT PHYSICIAN(S): Satnam Baltazar MD. TECHNIQUE: Duplex sonography and color-flow Doppler with graded compression were used to evaluate the deep venous systems of both lower extremities. The exam is somewhat limited by the patient's edema and inability to cooperate FINDINGS: The visualized deep venous systems of both lower extremities are sonographically normal and compressible. Normal wave forms and augmentation are seen. There is no sonographic evidence for deep venous thrombosis in the visualized segments of both lower extremities. IMPRESSION: No sonographic evidence for deep venous thrombosis in the visualized segments of both lower extremities. Limited visualization of the tibial veins
[2018-07-07] MEDS ORDERED: Sodium Chloride 0.9% 1,000 ML IV SCH (12:30)
[2018-07-07] MEDS ORDERED: DAPTOmycin 500 mg Inj (Cubicin) IV SCH (13:15)
[2018-07-07] MEDS: Meropenem IV 1 gm in NS 1 GM/50 ML BAG IVPB SCH ×2 (13:21→20:59)
--- NOTE | 2018-07-07 13:34 | CP.PCM.PN ---
<Francisco Pacheco - Last Filed: 07/07/18 15:40> Subjective - Date & Time of Evaluation Date of Evaluation: 07/07/18 Time of Evaluation: 10:13 - Subjective Subjective: Francisco Pacheco PGY1 Hospital Progress Note Patient seen and examined at bedside this morning. No acute events reported overnight. Started on IV antibiotics. Nausea and leg pain is improved. Denies CP and SOB. Offers no new complaints today. Objective - Vital Signs/Intake and Output Vital Signs (last 24 hours): Temp Pulse Resp BP Pulse Ox 98.3 F 56 L 20 130/82 98 07/07/18 05:45 07/07/18 05:45 07/07/18 05:45 07/07/18 09:22 07/07/18 05:45 Intake and Output: 07/07/18 07/07/18 06:59 18:59 Intake Total 300 Output Total 650 Balance -350 - Medications Medications: Current Medications Acetaminophen (Tylenol 325mg Tab) 650 mg PO Q6H PRN PRN Reason: Pain, moderate (4-7) Last Admin: 07/07/18 09:56 Dose: 650 mg Alprazolam (Xanax) 0.25 mg PO DAILY [facility]; Protocol Stop: 07/14/18 10:01 Last Admin: 07/07/18 09:56 Dose: Not Given Apixaban (Eliquis) 2.5 mg PO Q12 [facility]; Protocol Last Admin: 07/07/18 09:21 Dose: 2.5 mg Atorvastatin Calcium (Lipitor) 20 mg PO HS [facility] Docusate Sodium (Colace) 100 mg PO BID [facility] Last Admin: 07/07/18 09:21 Dose: 100 mg Furosemide (Lasix) 20 mg IVP DAILY [facility] Last Admin: 07/07/18 09:22 Dose: 20 mg Meropenem (Merrem Iv 1 Gm Premix) 1 gm in 50 mls @ 100 mls/hr IVPB Q8 [facility]; Protocol Stop: 07/08/18 06:29 Last Admin: 07/07/18 13:21 Dose: 100 mls/hr Vancomycin HCl (Vancomycin 1gm) 1 gm in 250 mls @ 167 mls/hr IVPB Q12H [facility] Last Admin: 07/07/18 11:27 Dose: 167 mls/hr Sodium Chloride (Sodium Chloride 0.9%) 1,000 mls @ 50 mls/hr IV .Q20H [facility] Stop: 07/08/18 23:59 Last Admin: 07/07/18 13:22 Dose: 50 mls/hr Daptomycin 350 mg/ Sodium (Chloride) 100 mls @ 200 mls/hr IV Q24H [facility] Stop: 07/12/18 13:16 Mirtazapine (Remeron) 15 mg PO HS [facility] Oxycodone/Acetaminophen (Percocet 2.5/325 Mg Tab) 1 tab PO Q6H PRN PRN Reason: Pain, severe (8-10) Pantoprazole Sodium (Protonix Ec Tab) 40 mg PO DAILY [facility] Last Admin: 07/07/18 09:21 Dose: 40 mg Potassium Chloride (K-Dur 20 Meq Er Tab) 40 meq PO ONCE ONE Stop: 07/07/18 15:01 - Labs Labs: 07/07/18 07:15 07/07/18 07:15 PT 18.9 SECONDS (9.4-12.5) H 07/06/18 13:50 INR 1.63 07/06/18 13:50 APTT 33.5 Seconds (25.1-36.5) 07/06/18 13:50 - Additional Findings Additional findings: - Constitutional Appears: Non-toxic, No Acute Distress - Head Exam Head Exam: ATRAUMATIC, NORMOCEPHALIC - Eye Exam Eye Exam: EOMI, Normal appearance, PERRL - ENT Exam ENT Exam: Mucous Membranes Moist - Respiratory Exam Respiratory Exam: Clear to Auscultation Bilateral, NORMAL BREATHING PATTERN. absent: Rales, Rhonchi, Wheezes - Cardiovascular Exam Cardiovascular Exam: REGULAR RHYTHM, +S1, +S2. absent: Gallop, Rubs, Systolic Murmur - GI/Abdominal Exam GI & Abdominal Exam: Normal Bowel Sounds, Soft. absent: Distended, Guarding, Organomegaly, Rigid, Tenderness - Extremities Exam Extremities exam: Positive for: normal capillary refill, normal inspection, tenderness to right knee, pedal pulses present B/L. Negative for: pedal edema - Neurological Exam Neurological exam: Alert, CN II-XII Intact, Oriented x3 - Skin Skin Exam: Dry, Intact, Normal Color, Warm. Right knee lateral ulcer measuring 5cm x 3cm, not actively bleeding/draining. Granulation tissue present. 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 Admitted for CHF exacerbation, bradycardia. Started on IV antibiotics. Plan: Bradycardia -holding home atenolol, digoxin -EKG: HR 54, A-fib with slow ventricular response, demonstrating signs of digoxin toxicity -dig level elevated on presentation, trending down to 2.3 today. F/u AM level -nausea is improved today -vitals reviewed, HR 50-60 overnight -cardio on consult RLE ulcer -hx of right knee prosthesis, periprosthetic infection with VRE -afebrile, no WBC -ID on consult, Dr Mi -ortho on consult, Dr Narvaez -IR on consult, Dr. Baltazar for PVD -per ortho, no tap needed at this time -podiatry on consult -IV daptpmycin and merrem, day 1 -blood cx, wound cx pending -percocet, tylenol prn pain -Ext US negative for DVT B/L -may need hyperbaric oxygen, appreciate recommendations CHF exacerbation -no SOB, mild leg swelling B/L -Trop elevated at 0.06, repeat trops x2 pending, will continue to trend -BNP 7570 on admission, CK negative -CXR: small b/l pleural effusions -Strict I's/O's, daily weights -Lasix 20 mg IVP daily Hypokalemia -repleted, f/u labs Hx afib -continue eliquis 2.5mg BID Hx CAD -Will hold Atenolol, digoxin at this time -Trop 0.06 x 3 Hx anxiety/mood disorder -continue home mirtazapine -Xanax daily PPX/Diet -eliquis, protonix -HHD Patient seen and case discussed with attending, Dr. Hernandez <Jay Hernandez - Last Filed: 07/07/18 17:06> Objective - Vital Signs/Intake and Output Vital Signs (last 24 hours): Temp Pulse Resp BP Pulse Ox 98 F 54 L 18 111/61 98 07/07/18 12:00 07/07/18 14:00 07/07/18 12:00 07/07/18 12:00 07/07/18 05:45 Intake and Output: 07/07/18 07/07/18 06:59 18:59 Intake Total 300 550 Output Total 650 Balance -350 550 - Medications Medications: Current Medications Acetaminophen (Tylenol 325mg Tab) 650 mg PO Q6H PRN PRN Reason: Pain, moderate (4-7) Last Admin: 07/07/18 09:56 Dose: 650 mg Alprazolam (Xanax) 0.25 mg PO DAILY [facility]; Protocol Stop: 07/14/18 10:01 Last Admin: 07/07/18 09:56 Dose: Not Given Apixaban (Eliquis) 2.5 mg PO Q12 [facility]; Protocol Last Admin: 07/07/18 09:21 Dose: 2.5 mg Atorvastatin Calcium (Lipitor) 20 mg PO HS [facility] Docusate Sodium (Colace) 100 mg PO BID [facility] Last Admin: 07/07/18 09:21 Dose: 100 mg Furosemide (Lasix) 20 mg IVP DAILY [facility] Last Admin: 07/07/18 09:22 Dose: 20 mg Meropenem (Merrem Iv 1 Gm Premix) 1 gm in 50 mls @ 100 mls/hr IVPB Q8 [facility]; Protocol Stop: 07/14/18 14:01 Last Admin: 07/07/18 13:21 Dose: 100 mls/hr Sodium Chloride (Sodium Chloride 0.9%) 1,000 mls @ 50 mls/hr IV .Q20H [facility] Stop: 07/08/18 23:59 Last Admin: 07/07/18 13:22 Dose: 50 mls/hr Daptomycin 472 mg/ Sodium (Chloride) 100 mls @ 200 mls/hr IV Q24H [facility]; Protocol Stop: 07/14/18 14:01 Last Admin: 07/07/18 15:45 Dose: 200 mls/hr Mirtazapine (Remeron) 15 mg PO HS [facility] Oxycodone/Acetaminophen (Percocet 2.5/325 Mg Tab) 1 tab PO Q6H PRN PRN Reason: Pain, severe (8-10) Pantoprazole Sodium (Protonix Ec Tab) 40 mg PO DAILY [facility] Last Admin: 07/07/18 09:21 Dose: 40 mg - Labs Labs: 07/07/18 07:15 07/07/18 07:15 PT 18.9 SECONDS (9.4-12.5) H 07/06/18 13:50 INR 1.63 07/06/18 13:50 APTT 33.5 Seconds (25.1-36.5) 07/06/18 13:50 Attending/Attestation - Attestation I have personally seen and examined this patient.: Yes I have fully participated in the care of the patient.: Yes I have reviewed all pertinent clinical information, including history, physical exam and plan: Yes Notes (Text): 07/07/18 17:00 82 year old female with past medical history of CAD, hypertension, afib on eliquis, and history of right knee replacement with history of periprosthetic infection s/p antibiotics who presented from [facility] with complaint of nausea, vomiting and lower extremity pain/swelling. Found to have elevated digoxin level, elevated pbnp, bradycardia and small bilateral pleural effusions on CXR. Currently digoxin and atenolol are hold. Bradycardia and digoxin level improving. Will repeat digoxin level in AM. Cardiology evaluated patient today; will follow up with recommendations. LE dopplers were reviewed. Case discussed with podiatry for chronic RLE ulcer who requested ID and IR evaluation. Started on iv antibiotics. Case discussed with Dr. Williamson who will follow up with patient as outpatient. Jay Hernandez MD Hospitalist.
[2018-07-07] MEDS ORDERED: Meropenem IV 1 gm in NS 1 GM/50 ML BAG IVPB SCH (14:00)
--- NOTE | 2018-07-07 14:04 | PN ---
DATE: 07/07/2018 SUBJECTIVE: This is an 82-year-old female seen for a right knee ulceration. The patient has been doing hyperbaric oxygen therapy daily; however, because of the holidays, she has not been seen this week. We did send orders over to the long term facility to do wound care using Iodosorb and a Silvercel dressing every other day. PAST MEDICAL HISTORY: Positive for hypertension, cardiac disease, AFib. The patient also has that right knee replacement, which had been removed and she has been on antibiotics for 4 to 6 weeks for osteomyelitis and we are trying to heal the wound in preparation for a new implant by Dr. Narvaez. The patient presented to the ED because of leg pain and vomiting for severe days. She states that the knee is burning, burning, burning all the time. The patient's past surgical history is as noted above for the knee replacement. ALLERGIES: TO BENADRYL, NITROGLYCERIN, PENICILLIN, AND CANDIES. MEDICATIONS: Noted on the MAR and she is residing at the rehab facility. She does not smoke or use alcohol. The patient had an extremity Doppler done and at the present time this is pending. This was her ABIs, which were done. Her pulses are absent except for the femoral and she has low flow to the metatarsal area; however, there is some flow coming in and there is flow coming into all other vessels. She may have a popliteal occlusion and I will discuss this with Dr. Baltazar once he comes in today. The patient's wound was examined. It is smaller than previous measuring approximately 3 x 3 cm. The antibiotic spacer previously was exposed as was the patellar tendon but these were all covered over. There is a deeper defect on the lateral side of the knee; however, it no longer goes into the knee cavity itself. There was yellow purulent drainage on her dressing upon removal of the dressing there was no cellulitis but there is a small excoriation of the skin distal to the original ulceration, which was not there, though last time I saw the patient in hyperbaric room. The patient's wound was cleansed and redressed using an Optifoam for pain sake. It is very painful to lift her knee and wrap a Kerlix around it. We will at this time order a culture and sensitivity since review of the chart does not show whether the sensitivity was done. She also will have ESR and a CRP done. 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 PLAN OF TREATMENT: The labs were reviewed. The patient's white blood cell count is 6.8. The H and H is 8.9 and 27.7 and the platelets are 241. Chemistry also was reviewed. Her BUN and creatinine is 7 and 0.5. Total protein is 5.1 and 2.3 respectively. We also will order a vascular consult with Dr. Baltazar as noted above. We did check the last knee culture, which was done on 06/19/2018 at the wound care center and there was no growth at that time. The patient will be seen and followed. Kristen Oliva DPM AYAH
[2018-07-07] MEDS: DAPTOMYCIN IV SCH (15:45)
[2018-07-07] MEDS: SODIUM CHLORIDE 0.9% IV SCH (15:45)
--- NOTE | 2018-07-07 20:00 | CON ---
DATE: 07/07/2018 REASON FOR CONSULT: Right knee infection, status post explantation and right total knee arthroplasty. HISTORY OF PRESENT ILLNESS: This is an 82-year-old female, well known to me, who approximately 2 months ago underwent explantation of right infected total knee. The patient's initial cultures with VRE, the patient underwent approximately 6-week course of antibiotic therapy; however, also, later developed a Pseudomonas infection and the patient had been on meropenem. The patient was also receiving hyperbaric treatment and had approximately 18 or 19 hyperbaric treatments. The patient was transported to the hospital on 07/06/2018 with complaints of lower extremity swelling. Currently, the patient is not on any antibiotics. PHYSICAL EXAMINATION: GENERAL: The patient is afebrile. The patient is awake, alert, and oriented. EXTREMITIES: She complains of pain with movement of the right lower extremity. There is no knee immobilizer. Evaluation of the right knee shows she has approximately 2 x 2 cm area that of previous sinus tract. There does appear to be some interval healing; however, there appears to be a small amount of drainage coming from this area. No significant knee effusion is appreciated. Her thigh and calves are soft and nontender. Grossly, she is neurovascularly intact. ASSESSMENT AND PLAN: I discussed her course with Dr. Oliva, the global mobility specialist. She did obtain a culture of the area that was draining. We are going to consult the Infectious Disease Service and also we will consult the Vascular Service to assess her vascular status. For now, she is going to continue with a hyperbaric treatment, and we will follow her while she is here. At this point, she does not remain a candidate for reimplantation given the likelihood of persistent infection. Hernan Watson MD
--- NOTE | 2018-07-07 21:49 | CON ---
DATE: 07/07/2018 REASON FOR CONSULTATION: Cardiac evaluation, history of chronic atrial fibrillation, admitted with bradycardia, generalized weakness, leg pain, and vomiting. BRIEF CLINICAL HISTORY: This is an 82-year-old female with past medical history significant for coronary artery disease, status post PTCA in the past with remote history of chronic atrial fibrillation, on Coumadin before, now with Eliquis and digoxin and admitted with leg pain. Digoxin level found to be elevated as well. The patient was complaining of vomiting. Last night, the patient's heart rate of 30. Denies any chest pain, shortness of breath, or any palpitations. PAST MEDICAL HISTORY: Significant for hypertension, coronary artery disease in the past; history of chronic atrial fibrillation, on Coumadin, now with Eliquis; history of recently right replacement done, but postop course complicated by infected prosthesis was removed. RECENT SURGICAL HISTORY: Right knee replacement followed by infected right knee removal of the prosthesis with replacement with spacer device placed in 04/2018 and I and D was done. ALLERGIES: BENADRYL, NITROGLYCERIN, PENICILLIN, SILK TAPE, CHOCOLATE, AND CANDY. CURRENT MEDICATIONS: The patient is taking simvastatin, Protonix, Colace, Lanoxin, Lipitor, atenolol, Eliquis, Percocet, and Tylenol. SOCIAL HISTORY: Denies smoking. Denies any history of alcohol abuse. Previous cardiac workup as follows; the patient had stress test as preop before the knee surgery 02/12/2016, ejection fraction 65%, normal myocardial perfusion study, no ischemia, no change from 2014. The patient had an echocardiography 04/09/2018 that revealed ejection fraction 65%, normal RV size, right atrial dilated, left atrium dilated, calcified aortic valve, mild mitral regurgitation, tricuspid appears normal, [id number] tricuspid regurgitation, RV systolic pressure of 65% with moderate pulmonary hypertension. The patient was at that time on Coumadin, but after the knee surgery, the patient changed to Eliquis. REVIEW OF SYSTEMS: As per HPI. PHYSICAL EXAMINATION: VITAL SIGNS: Height of the patient is 5 feet 11 inches, weight of the patient is 130 pounds, and body mass index 19 kg/m2. Temperature is afebrile, heart rate 54, and blood pressure 130/82. HEENT: PERRLA. Extraocular muscles intact. NECK: Supple. No carotid bruit or thyromegaly. CHEST: Clear to auscultation. HEART: S1 and S2 regular. ABDOMEN: Soft. EXTREMITIES: Clubbing and cyanosis negative. LABORATORY DATA: EKG showed heart rate of 34, atrial fibrillation, slow ventricular response, ST-T abnormality consider inferolateral ischemia or digitalis effect. Blood workup as follows; WBC 6.8, hemoglobin 8.9, hematocrit 27.7, and platelet count 241. INR 1.63. Chemistry shows sodium 132, potassium 3.5, chloride 96, carbon dioxide 34, anion gap of 6, BUN 7, and creatinine 0.5. BNP 7572. Troponin 0.6, 0.6, and 0.6 with creatinine clearance 64 mL an hour. Digoxin level shows 2.3 today, yesterday is 2.5. IMPRESSION: An 82-year-old female with past medical history significant for coronary artery disease in the past in 1999, history of chronic atrial fibrillation was on Coumadin, preoperatively status post knee surgery, and status post removal of the prosthesis and spacer device was placed. History of stress test preoperatively was negative, ejection fraction 61% and echocardiogram also preoperatively dated 04/09/2018 reveal ejection fraction 65%, normal right ventricular size, right atrium dilated, left atrium dilated, calcified aortic valve, mild mitral regurgitation, [id number] tricuspid regurgitation, right ventricular systolic pressure of 65, admitted with nausea, vomiting, and leg pain, found to be bradycardic and had elevated digoxin level 2.5, today is 2.3. RECOMMENDATIONS: Hold Coumadin. Hold atenolol. Gentle hydration, though the patient's BNP is elevated clinically not in failure. Monitor electrolytes. Repeat chest x-ray. We will follow with you. Thank you Dr. Henao for providing us the opportunity in taking care of the patient, Norma Segura. We will discuss with the family. Gabbi Medrano MD MTDD
[2018-07-08] MEDS: Meropenem IV 1 gm in NS 1 GM/50 ML BAG IVPB SCH ×3 (05:15→21:34)
[2018-07-08 07:48] LABS: BASO # 0.03 K/mm3 (0.0-2.0); BASO % 0.3 % (0.0-3.0); EOS # 0.3 (0.0-0.7); EOS % 3.2 % (1.5-5.0); GRAN # 6.01 (1.4-6.5); HEMOGLOBIN 8.5 g/dL (12.0-16.0); LYMPH # 1.8 (1.2-3.4); LYMPH % 19.5 % (22.0-35.0); MEAN CELL VOLUME 86.4 fl (80.0-105.0); MEAN CORPUSCULAR HEMOGLOBIN 27.6 pg (25.0-35.0); MEAN PLATELET VOLUME 10.2 fl (7.0-11.0); MONO # 0.9 (0.1-0.6); RBC 3.08 10^6/uL (3.5-6.1); RED CELL DISTRIBUTION WIDTH 17.8 % (11.5-14.5)
[2018-07-08 08:06] LABS: ALB/GLOB RATIO 0.8 (1.1-1.8)
[2018-07-08 08:15] LABS: ALBUMIN 2.2 g/dL (3.0-4.8); ALT/SGPT 22 U/L (7-56); AST/SGOT 22 U/L (14-36); BLOOD UREA NITROGEN 7 mg/dL (7-21); CALCIUM 7.5 mg/dL (8.4-10.5); GFR NON-AFRICAN AMERICAN > 60
[2018-07-08] MEDS: Pantoprazole 40 mg EC Tab PO SCH (09:13)
--- NOTE | 2018-07-08 10:29 | RAD ---
Date of service: 07/08/2018 HISTORY: R/O pneumonia Vs CHF COMPARISON: Chest radiograph dated 07/06/2018. FINDINGS: LUNGS: No active pulmonary disease. PLEURA: Bibasilar pleural thickening and/or small effusions. CARDIOVASCULAR: Aortic atherosclerotic calcifications. Cardiomediastinal silhouette stably enlarged OSSEOUS STRUCTURES: Unchanged. VISUALIZED UPPER ABDOMEN: Normal. OTHER FINDINGS: None. IMPRESSION: Evaluation due to patient rotation. Bibasilar pleural thickening and/or small effusions.
--- NOTE | 2018-07-08 10:33 | CARD ---
APPROVED REPORT Date of service: 07/08/2018 EKG Measurement Heart [id number] <Conclusion> Atrial fibrillation ST & T wave abnormality, consider lateral ischemia or digitalis effect Abnormal ECG
--- NOTE | 2018-07-08 11:24 | PN ---
DATE: 07/08/2018 REASON FOR CONSULTATION AND FOLLOWUP: Cardiac evaluation, history of chronic atrial fibrillation, admitted with bradycardia, generalized weakness, leg pain and vomiting, elevated digoxin level 2.5. SUBJECTIVE: The patient denies any chest pain, shortness of breath, or any palpitation. Denies any nausea or vomiting. PHYSICAL EXAMINATION: GENERAL: Not in apparent distress. VITAL SIGNS: As follows: Heart rate 60, blood pressure 130/65. HEENT: PERRLA. Extraocular muscles intact. NECK: Supple. No carotid bruits or thyromegaly. CHEST: Clear to auscultation. HEART: S1 and S2 regular. ABDOMEN: Soft. EXTREMITIES: Clubbing and cyanosis negative. DIAGNOSTIC DATA: Digoxin level 1.4. WBC 9, hemoglobin 8.5, hematocrit 26.6, and platelet count 219. Chemistries shows sodium 131, potassium 3.9, chloride 100, carbon dioxide 30, anion gap of 6. BUN 7, creatinine 0.5. Total protein 5, albumin 2.2, albumin-globulin ratio 0.8. IMPRESSION AND PLAN: An 82-year-old female with past medical history significant for coronary artery disease, status post percutaneous transluminal coronary angioplasty in 2001, history of chronic atrial fibrillation with anticoagulation, on digoxin, admitted with leg swelling, found to be bradycardic as well as elevated digoxin level 2.5, also found to be [id number] protein calorie malnutrition which was moderate on admission. The patient was started on intravenous fluid, digoxin was held. Today, digoxin level is 1.4. The patient feels asymptomatic. No nausea, no vomiting, and also heart rate came back to 60. RECOMMENDATION: Discontinue IV fluid. Continue to hold digoxin until the digoxin level goes below 1. Continue anticoagulation with Eliquis. Continue gentle diuretics. We will change to p.o. from tomorrow. Continue to supplement potassium to prevent toxicity of digoxin. We will keep her potassium around 4. Increase nutritional support, started on supplement because of protein calorie malnutrition. If remains stable, discontinue telemetry. Last echo 04/09/2018 revealed ejection fraction 65%, normal right ventricle size, dilated right atrium, left atrium dilated, calcific aortic valve, mild mitral regurgitation, [id number] tricuspid regurgitation, elevated systolic pressure of 65. We will put low dose p.o. Lasix from tomorrow and discontinue IV Lasix today. Thank you Dr. Hernandez for providing us the opportunity in taking care of the patient, Norma Segura. We will follow with you. Gabbi Medrano MD
--- NOTE | 2018-07-08 12:19 | CP.PCM.PN ---
<Giuseppe Freed - Last Filed: 07/08/18 12:16> Subjective - Date & Time of Evaluation Date of Evaluation: 07/08/18 Time of Evaluation: 12:16 - Subjective Subjective: Podiatry progress note for Dr. Oliva 82F seen and evaluated at bedside. Resting comfortably with right leg dressed and elevated on pillows. States she is in pain in her knee. Denies N/V/CP/SOB. Denies F/C. Has no other acute complaints. Objective - Vital Signs/Intake and Output Vital Signs (last 24 hours): Temp Pulse Resp BP Pulse Ox 98.2 F 75 19 130/65 97 07/08/18 06:00 07/08/18 10:00 07/08/18 06:00 07/08/18 09:13 07/08/18 06:00 Intake and Output: 07/08/18 07/08/18 06:59 18:59 Intake Total 1250 Output Total 150 Balance 1100 - Medications Medications: Current Medications Acetaminophen (Tylenol 325mg Tab) 650 mg PO Q6H PRN PRN Reason: Pain, moderate (4-7) Last Admin: 07/07/18 09:56 Dose: 650 mg Alprazolam (Xanax) 0.25 mg PO DAILY [facility]; Protocol Stop: 07/14/18 10:01 Last Admin: 07/08/18 09:13 Dose: 0.25 mg Apixaban (Eliquis) 2.5 mg PO Q12 [facility]; Protocol Last Admin: 07/08/18 09:13 Dose: 2.5 mg Atorvastatin Calcium (Lipitor) 20 mg PO HS [facility] Last Admin: 07/07/18 21:00 Dose: 20 mg Docusate Sodium (Colace) 100 mg PO BID [facility] Last Admin: 07/08/18 09:13 Dose: 100 mg Furosemide (Lasix) 20 mg IVP DAILY [facility] Stop: 07/08/18 23:59 Last Admin: 07/08/18 09:13 Dose: 20 mg Furosemide (Lasix) 40 mg PO DAILY [facility] Meropenem (Merrem Iv 1 Gm Premix) 1 gm in 50 mls @ 100 mls/hr IVPB Q8 [facility]; Protocol Stop: 07/14/18 14:01 Last Admin: 07/08/18 05:15 Dose: 100 mls/hr Daptomycin 472 mg/ Sodium (Chloride) 100 mls @ 200 mls/hr IV Q24H [facility]; Protocol Stop: 07/14/18 14:01 Last Admin: 07/07/18 15:45 Dose: 200 mls/hr Mirtazapine (Remeron) 15 mg PO HS [facility] Last Admin: 07/07/18 21:00 Dose: 15 mg Oxycodone/Acetaminophen (Percocet 2.5/325 Mg Tab) 1 tab PO Q6H PRN PRN Reason: Pain, severe (8-10) Pantoprazole Sodium (Protonix Ec Tab) 40 mg PO DAILY [facility] Last Admin: 07/08/18 09:13 Dose: 40 mg - Labs Labs: 07/08/18 06:45 07/08/18 06:45 PT 18.9 SECONDS (9.4-12.5) H 07/06/18 13:50 INR 1.63 07/06/18 13:50 APTT 33.5 Seconds (25.1-36.5) 07/06/18 13:50 - Constitutional Appears: Non-toxic, No Acute Distress - Head Exam Head Exam: ATRAUMATIC, NORMOCEPHALIC - Extremities Exam Additional comments: RLE focused Vasc: DP/PT faintly palpable. Cap refill< 3 sec to all digits. Temp gradient warm to warm. minimal edema to right knee. Mild Periwound erythema noted. Neuro: Gross and protective sensations are intact. Derm: A wound measures 3 cm x 3 cm which is greatly improved since last admission; mild appreciation of undermining and tracking; wound base is 20% fibrotic and 80% granular; mild no drainage noted on bandage MSK: Pain on palpating the periwound area. Muscle power around the knee joint c ouldn't be assessed due to pain and guarding. 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 Oliva Afebrile, absent leukocytosis R knee wound cleansed with sterile saline and dressed with optifoam as wrap dressing too painful for patient when applying Wound culture - pending, f/u Dr. Watson consulted Dr. Baltazar consulted Dr. Simeon on consult - recs appreciated Dr. Medrano consulted Will continue to follow <Kristen Oliva - Last Filed: 07/12/18 14:16> Objective - Vital Signs/Intake and Output Vital Signs (last 24 hours): Temp Pulse Resp BP Pulse Ox 97.7 F 54 L 16 132/90 99 07/12/18 06:00 07/12/18 06:00 07/12/18 06:00 07/12/18 09:19 07/12/18 06:00 Intake and Output: 07/12/18 07/12/18 06:59 18:59 Intake Total 600 Output Total 600 Balance 0 - Medications Medications: Current Medications Acetaminophen (Tylenol 325mg Tab) 650 mg PO Q6H PRN PRN Reason: Pain, moderate (4-7) Last Admin: 07/10/18 23:49 Dose: 650 mg Alprazolam (Xanax) 0.25 mg PO DAILY [facility]; Protocol Stop: 07/14/18 10:01 Last Admin: 07/12/18 09:20 Dose: Not Given Apixaban (Eliquis) 2.5 mg PO Q12 [facility]; Protocol Last Admin: 07/12/18 09:19 Dose: 2.5 mg Atenolol (Tenormin) 12.5 mg PO BID [facility] Atorvastatin Calcium (Lipitor) 20 mg PO HS [facility] Last Admin: 07/11/18 23:03 Dose: 20 mg Cadexomer Iodine (Iodosorb) 1 gm TOP DAILY [facility] Calcium Carbonate (Caltrate) 600 mg PO DAILY [facility] Last Admin: 07/12/18 09:20 Dose: 600 mg Cholecalciferol (Vitamin D) 2,000 intlu PO DAILY [facility] Last Admin: 07/12/18 09:20 Dose: 2,000 intlu Digoxin (Digoxin) 0.125 mg PO 1400 [facility] Last Admin: 07/12/18 14:00 Dose: Not Given Docusate Sodium (Colace) 100 mg PO BID [facility] Last Admin: 07/12/18 09:20 Dose: 100 mg Furosemide (Lasix) 40 mg PO DAILY [facility] Last Admin: 07/12/18 09:19 Dose: 40 mg Meropenem (Merrem Iv 1 Gm Premix) 1 gm in 50 mls @ 100 mls/hr IVPB Q8 [facility]; Protocol Stop: 07/14/18 14:01 Last Admin: 07/12/18 13:13 Dose: 100 mls/hr Daptomycin 472 mg/ Sodium (Chloride) 100 mls @ 200 mls/hr IV Q24H [facility]; Protocol Stop: 07/14/18 14:01 Last Admin: 07/12/18 14:00 Dose: 200 mls/hr Mirtazapine (Remeron) 15 mg PO HS [facility] Last Admin: 07/11/18 23:03 Dose: 15 mg Pantoprazole Sodium (Protonix Ec Tab) 40 mg PO DAILY [facility] Last Admin: 07/12/18 09:19 Dose: 40 mg - Labs Labs: 07/12/18 06:00 07/12/18 06:00 PT 18.9 SECONDS (9.4-12.5) H 07/06/18 13:50 INR 1.63 07/06/18 13:50 APTT 33.5 Seconds (25.1-36.5) 07/06/18 13:50 Attending/Attestation - Attestation I have personally seen and examined this patient.: Yes I have fully participated in the care of the patient.: Yes I have reviewed all pertinent clinical information, including history, physical exam and plan: Yes
--- NOTE | 2018-07-08 12:51 | PN ---
DATE: 07/08/2018 SUBJECTIVE: The patient is in bed, in no acute distress. She has no fevers, no chills. Uneventful night. Eating her breakfast. PHYSICAL EXAMINATION: VITAL SIGNS: Temperature is 98, blood pressure is 117/50, and respiratory rate of 16. HEENT: Unremarkable. NECK: Supple. LUNGS: Decreased breath sounds. HEART: Normal S1 and S2. ABDOMEN: Soft and nontender. LABORATORY DATA: Laboratory examination reveals a white count of 9000, hemoglobin of 8.5, and platelets of 219. BUN of 7 and creatinine of 0.5. Toxicology is noted. Microbiology is noted. ASSESSMENT AND PLAN: This is an 82-year-old female with chronically infected prosthetic right knee joint, status post right knee prosthesis, antibiotic spacer containing and vancomycin and gentamicin, completed 6 weeks of antibiotics. Currently, on daptomycin and meropenem. Leg pain and nausea are resolved. She did not have any fevers on admission; did not have any tachycardia; did not have any dyspnea. White count was normal at 8000 with a sed rate of 10. We will check on the culture results. Dominick Simeon MD
--- NOTE | 2018-07-08 13:05 | CP.PCM.PN ---
<Gloria Whiteside - Last Filed: 07/08/18 15:11> Subjective - Date & Time of Evaluation Date of Evaluation: 07/08/18 Time of Evaluation: 10:30 - Subjective Subjective: Gloria Whiteside DO, PGY-2: Hospitalist Progress Note for Dr. Hernandez Patient was seen and exmained at bedside. She complained of right leg pain. She was offered a variety of analgesics, which she deferred. During the painful episode it was noted her HR went to 70, which is a good sign. Otherwise, she reports having no nausea or vomiting. Objective - Vital Signs/Intake and Output Vital Signs (last 24 hours): Temp Pulse Resp BP Pulse Ox 98.1 F 73 19 134/64 97 07/08/18 12:00 07/08/18 12:00 07/08/18 12:00 07/08/18 12:00 07/08/18 06:00 Intake and Output: 07/08/18 07/08/18 06:59 18:59 Intake Total 1250 Output Total 150 Balance 1100 - Medications Medications: Current Medications Acetaminophen (Tylenol 325mg Tab) 650 mg PO Q6H PRN PRN Reason: Pain, moderate (4-7) Last Admin: 07/07/18 09:56 Dose: 650 mg Alprazolam (Xanax) 0.25 mg PO DAILY [facility]; Protocol Stop: 07/14/18 10:01 Last Admin: 07/08/18 09:13 Dose: 0.25 mg Apixaban (Eliquis) 2.5 mg PO Q12 [facility]; Protocol Last Admin: 07/08/18 09:13 Dose: 2.5 mg Atorvastatin Calcium (Lipitor) 20 mg PO HS [facility] Last Admin: 07/07/18 21:00 Dose: 20 mg Docusate Sodium (Colace) 100 mg PO BID [facility] Last Admin: 07/08/18 09:13 Dose: 100 mg Furosemide (Lasix) 20 mg IVP DAILY [facility] Stop: 07/08/18 23:59 Last Admin: 07/08/18 09:13 Dose: 20 mg Furosemide (Lasix) 40 mg PO DAILY [facility] Meropenem (Merrem Iv 1 Gm Premix) 1 gm in 50 mls @ 100 mls/hr IVPB Q8 [facility]; Protocol Stop: 07/14/18 14:01 Last Admin: 07/08/18 05:15 Dose: 100 mls/hr Daptomycin 472 mg/ Sodium (Chloride) 100 mls @ 200 mls/hr IV Q24H [facility]; Protocol Stop: 07/14/18 14:01 Last Admin: 07/07/18 15:45 Dose: 200 mls/hr Mirtazapine (Remeron) 15 mg PO HS [facility] Last Admin: 07/07/18 21:00 Dose: 15 mg Oxycodone/Acetaminophen (Percocet 2.5/325 Mg Tab) 1 tab PO Q6H PRN PRN Reason: Pain, severe (8-10) Pantoprazole Sodium (Protonix Ec Tab) 40 mg PO DAILY [facility] Last Admin: 07/08/18 09:13 Dose: 40 mg - Labs Labs: 07/08/18 06:45 07/08/18 06:45 PT 18.9 SECONDS (9.4-12.5) H 07/06/18 13:50 INR 1.63 07/06/18 13:50 APTT 33.5 Seconds (25.1-36.5) 07/06/18 13:50 - Constitutional Appears: Well, Non-toxic - Head Exam Head Exam: ATRAUMATIC, NORMOCEPHALIC - Eye Exam Eye Exam: EOMI, Normal appearance - ENT Exam ENT Exam: Mucous Membranes Moist, Normal Oropharynx - Neck Exam Neck Exam: Normal Inspection - Respiratory Exam Respiratory Exam: Clear to Ausculation Bilateral, NORMAL BREATHING PATTERN. a bsent: Accessory Muscle Use - Cardiovascular Exam Cardiovascular Exam: RRR, +S1, +S2 - GI/Abdominal Exam GI & Abdominal Exam: Soft, Normal Bowel Sounds - Extremities Exam Additional comments: right knee is bandaged at the lateral aspect - Back Exam Back Exam: NORMAL INSPECTION. 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 Admitted for CHF exacerbation, bradycardia. Started on IV antibiotics, wound and blood cultures negative thus far. Plan: Bradycardia -holding home atenolol, digoxin -EKG: HR 54, A-fib with slow ventricular response, demonstrating signs of digoxin toxicity -dig level elevated on presentation, now 1.3 -nausea is improved today -vitals reviewed, HR 60-70 overnight -cardiology consulted RLE ulcer -history of right knee prosthesis, periprosthetic infection with VRE -afebrile, no WBC -ID on consult, Dr Mi -ortho on consult, Dr Narvaez -IR on consult, Dr. Baltazar for PVD -per ortho, no tap needed at this time -podiatry on consult -IV daptomycin and merrem per Infectious Disease - blood cultures x 2 negative - wound culture negative -percocet, tylenol prn pain -lower extremity US negative for DVT B/L CHF exacerbation -no SOB, mild leg swelling B/L -Trop elevated at 0.06, repeat trops x2 pending, will continue to trend -BNP 7570 on admission, CK negative -CXR: small b/l pleural effusions -Strict I's/O's, daily weights -Lasix 20 mg IVP daily Hypokalemia -repleted, f/u labs Hx afib -continue eliquis 2.5mg BID Hx CAD -Will hold Atenolol, digoxin at this time -Trop 0.06 x 3 Hx anxiety/mood disorder -continue home mirtazapine -Xanax daily PPX/Diet -eliquis, protonix -HHD Patient seen and case discussed with attending, Dr. Hernandez <Jay Hernandez - Last Filed: 07/08/18 15:18> Objective - Vital Signs/Intake and Output Vital Signs (last 24 hours): Temp Pulse Resp BP Pulse Ox 98.1 F 73 19 134/64 97 07/08/18 12:00 07/08/18 12:00 07/08/18 12:00 07/08/18 12:00 07/08/18 06:00 Intake and Output: 07/08/18 07/08/18 06:59 18:59 Intake Total 1250 Output Total 150 Balance 1100 - Medications Medications: Current Medications Acetaminophen (Tylenol 325mg Tab) 650 mg PO Q6H PRN PRN Reason: Pain, moderate (4-7) Last Admin: 07/07/18 09:56 Dose: 650 mg Alprazolam (Xanax) 0.25 mg PO DAILY [facility]; Protocol Stop: 07/14/18 10:01 Last Admin: 07/08/18 09:13 Dose: 0.25 mg Apixaban (Eliquis) 2.5 mg PO Q12 [facility]; Protocol Last Admin: 07/08/18 09:13 Dose: 2.5 mg Atorvastatin Calcium (Lipitor) 20 mg PO HS [facility] Last Admin: 07/07/18 21:00 Dose: 20 mg Docusate Sodium (Colace) 100 mg PO BID [facility] Last Admin: 07/08/18 09:13 Dose: 100 mg Furosemide (Lasix) 40 mg PO DAILY [facility] Meropenem (Merrem Iv 1 Gm Premix) 1 gm in 50 mls @ 100 mls/hr IVPB Q8 [facility]; Protocol Stop: 07/14/18 14:01 Last Admin: 07/08/18 13:16 Dose: 100 mls/hr Daptomycin 472 mg/ Sodium (Chloride) 100 mls @ 200 mls/hr IV Q24H [facility]; Protocol Stop: 07/14/18 14:01 Last Admin: 07/08/18 13:57 Dose: 200 mls/hr Mirtazapine (Remeron) 15 mg PO HS [facility] Last Admin: 07/07/18 21:00 Dose: 15 mg Oxycodone/Acetaminophen (Percocet 2.5/325 Mg Tab) 1 tab PO Q6H PRN PRN Reason: Pain, severe (8-10) Pantoprazole Sodium (Protonix Ec Tab) 40 mg PO DAILY [facility] Last Admin: 07/08/18 09:13 Dose: 40 mg - Labs Labs: 07/08/18 06:45 07/08/18 06:45 PT 18.9 SECONDS (9.4-12.5) H 07/06/18 13:50 INR 1.63 07/06/18 13:50 APTT 33.5 Seconds (25.1-36.5) 07/06/18 13:50 Attending/Attestation - Attestation I have personally seen and examined this patient.: Yes I have fully participated in the care of the patient.: Yes I have reviewed all pertinent clinical information, including history, physical exam and plan: Yes Notes (Text): 07/08/18 15:17 82 year old female with past medical history of CAD, hypertension, afib on eliquis, and history of right knee replacement with history of periprosthetic infection s/p antibiotics who presented from CT with complaint of nausea, vomiting and lower extremity pain/swelling. Found to have elevated digoxin level, elevated pbnp, bradycardia and small bilateral pleural effusions on CXR. Currently digoxin and atenolol are hold. Bradycardia is improved and digoxin level has come down. Cardiology is following and switched lasix for po starting tomorrow. LE dopplers were reviewed. Case discussed with podiatry for chronic RLE ulcer who requested ID and IR evaluation. Started on iv antibiotics. Case discussed with Dr. Williamson who will follow up with patient as outpatient. Jay Hernandez MD Hospitalist.
[2018-07-08] MEDS: DAPTOMYCIN IV SCH (13:57)
[2018-07-08] MEDS: SODIUM CHLORIDE 0.9% IV SCH (13:57)
[2018-07-09] MEDS: Meropenem IV 1 gm in NS 1 GM/50 ML BAG IVPB SCH ×2 (05:25→15:20)
[2018-07-09 06:42] LABS: BASO # 0.03 K/mm3 (0.0-2.0); BASO % 0.4 % (0.0-3.0); EOS # 0.6 (0.0-0.7); EOS % 7.5 % (1.5-5.0); GRAN % 65.5 % (50.0-68.0); HEMOGLOBIN 8.1 g/dL (12.0-16.0); LYMPH # 1.6 (1.2-3.4); LYMPH % 20.7 % (22.0-35.0); MEAN CELL VOLUME 86.4 fl (80.0-105.0); MEAN CORPUSCULAR HEMOGLOBIN 27.6 pg (25.0-35.0); MEAN CORPUSCULAR HGB CONC 31.9 g/dl (31.0-37.0); MEAN PLATELET VOLUME 10.3 fl (7.0-11.0); MONO # 0.5 (0.1-0.6); MONO % 5.9 % (1.0-6.0); RBC 2.94 10^6/uL (3.5-6.1); RED CELL DISTRIBUTION WIDTH 17.5 % (11.5-14.5); WHITE BLOOD COUNT 7.6 10^3/uL (4.5-11.0)
[2018-07-09 07:10] LABS: ALB/GLOB RATIO 0.7 (1.1-1.8); ALT/SGPT 26 U/L (7-56); AST/SGOT 18 U/L (14-36); BLOOD UREA NITROGEN 7 mg/dL (7-21); CALCIUM 7.7 mg/dL (8.4-10.5); GFR NON-AFRICAN AMERICAN > 60
[2018-07-09] MEDS ORDERED: Potassium Chloride 20 mEq ER Tab PO ONE (09:14)
[2018-07-09] MEDS: Pantoprazole 40 mg EC Tab PO SCH (10:39)
--- NOTE | 2018-07-09 11:58 | PN ---
DATE: 07/09/2018 REASON FOR CONSULTATION: Followup cardiac evaluation, history of chronic atrial fibrillation, admitted with bradycardia, generalized weakness, elevated digoxin level 2.5. SUBJECTIVE: The patient denies any chest pain, shortness of breath, or any palpitation. OBJECTIVE: GENERAL: Not in apparent distress. Feels a lot better. VITAL SIGNS: As follows: Temperature afebrile. Heart rate 66, blood pressure 108/62. HEENT: PERRLA. Extraocular muscles intact. NECK: Supple. No carotid bruits or thyromegaly. CHEST: Clear to auscultation. HEART: S1 and S2 regular. ABDOMEN: Soft. EXTREMITIES: Clubbing and cyanosis negative. DIAGNOSTIC DATA: Blood work; WBC 7.9, hemoglobin 8.1, hematocrit 25.4, and platelet count 200. Chemistries shows sodium 133, potassium 3.4, chloride 100, carbon dioxide 31, anion gap of 6. BUN 7, creatinine 0.4. Total protein 4.8, albumin 2, albumin-globulin ratio 0.7. INR 1.63. IMPRESSION AND PLAN: An 82-year-old female with past medical history significant for chronic atrial fibrillation, history of coronary artery disease, status post percutaneous transluminal coronary angioplasty in 1999, history of chronic atrial fibrillation on Coumadin, status post leg knee surgery total replacement, status post infected, status post pacer device placed and removal of the prosthesis, admitted with generalized weakness, elevated digoxin level and was in bradycardia. Today digoxin level is 1.1 and no more bradycardic episodes happened. RECOMMENDATION: We will start digoxin 0.125, adjust dose, continue Eliquis, we will discontinue telemetry, continue rehab. Discharge planning. CVS status is stable. Potassium is 4. We will supplement potassium and increase the nutrition support. The patient has severe protein calorie malnutrition, was present on admission but was moderate, now is severe. Thank you Dr. Hernandez for providing us the opportunity in taking care of the patient, Norma Segura. We will follow with you. Gabbi Medrano MD
--- NOTE | 2018-07-09 13:00 | CP.PCM.PN ---
<Soco Reaves - Last Filed: 07/09/18 15:03> Subjective - Date & Time of Evaluation Date of Evaluation: 07/09/18 Time of Evaluation: 12:12 - Subjective Subjective: Podiatry progress note for Dr. Oliva 82F seen and evaluated at bedside. Resting comfortably with right leg dressed and elevated on pillows. States she is in moderated amount of pain in her knee. Denies N/V/CP/SOB. Denies F/C. Has no other acute complaints. Objective - Vital Signs/Intake and Output Vital Signs (last 24 hours): Temp Pulse Resp BP Pulse Ox 98.4 F 77 18 118/56 L 96 07/09/18 06:00 07/09/18 06:00 07/09/18 06:00 07/09/18 10:39 07/09/18 06:00 Intake and Output: 07/09/18 07/09/18 06:59 18:59 Intake Total 600 Output Total 150 Balance 450 - Medications Medications: Current Medications Acetaminophen (Tylenol 325mg Tab) 650 mg PO Q6H PRN PRN Reason: Pain, moderate (4-7) Last Admin: 07/07/18 09:56 Dose: 650 mg Alprazolam (Xanax) 0.25 mg PO DAILY [facility]; Protocol Stop: 07/14/18 10:01 Last Admin: 07/09/18 11:53 Dose: Not Given Apixaban (Eliquis) 2.5 mg PO Q12 [facility]; Protocol Last Admin: 07/09/18 10:40 Dose: 2.5 mg Atorvastatin Calcium (Lipitor) 20 mg PO HS [facility] Last Admin: 07/08/18 22:00 Dose: 20 mg Digoxin (Digoxin) 0.125 mg PO 1400 [facility] Docusate Sodium (Colace) 100 mg PO BID [facility] Last Admin: 07/09/18 10:39 Dose: Not Given Furosemide (Lasix) 40 mg PO DAILY [facility] Last Admin: 07/09/18 10:39 Dose: 40 mg Meropenem (Merrem Iv 1 Gm Premix) 1 gm in 50 mls @ 100 mls/hr IVPB Q8 [facility]; Protocol Stop: 07/14/18 14:01 Last Admin: 07/09/18 05:25 Dose: 100 mls/hr Daptomycin 472 mg/ Sodium (Chloride) 100 mls @ 200 mls/hr IV Q24H [facility]; Protocol Stop: 07/14/18 14:01 Last Admin: 07/08/18 13:57 Dose: 200 mls/hr Mirtazapine (Remeron) 15 mg PO HS [facility] Last Admin: 07/08/18 21:33 Dose: 15 mg Oxycodone/Acetaminophen (Percocet 2.5/325 Mg Tab) 1 tab PO Q6H PRN PRN Reason: Pain, severe (8-10) Pantoprazole Sodium (Protonix Ec Tab) 40 mg PO DAILY [facility] Last Admin: 07/09/18 10:39 Dose: 40 mg - Labs Labs: 07/09/18 06:15 07/09/18 06:15 PT 18.9 SECONDS (9.4-12.5) H 07/06/18 13:50 INR 1.63 07/06/18 13:50 APTT 33.5 Seconds (25.1-36.5) 07/06/18 13:50 - Constitutional Appears: Well, Non-toxic, No Acute Distress - Head Exam Head Exam: ATRAUMATIC, NORMOCEPHALIC - Eye Exam Eye Exam: EOMI, Normal appearance Pupil Exam: NORMAL ACCOMODATION - ENT Exam ENT Exam: Mucous Membranes Moist - Neck Exam Neck Exam: Full ROM - Respiratory Exam Respiratory Exam: Clear to Ausculation Bilateral, NORMAL BREATHING PATTERN - Cardiovascular Exam Cardiovascular Exam: REGULAR RHYTHM, +S1, +S2 - Extremities Exam Additional comments: RLE focused Vasc: DP/PT faintly palpable. Cap refill< 3 sec to all digits. Temp gradient warm to warm. minimal edema to right knee. Mild Periwound erythema noted. Neuro: Gross and protective sensations are intact. Derm: A wound measures 3 cm x 3 cm which is greatly improved since last admission; mild appreciation of undermining and tracking; wound base is 20% fi brotic and 80% granular; moderated serosanguinous drainage noted on the dressing. MSK: Pain on palpating the periwound area. Muscle power around the knee joint couldn't be assessed due to pain and guarding. 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 Oliva Afebrile, absent leukocytosis R knee wound cleansed with sterile saline and dressed with optifoam as wrap dressing too painful for patient when applying Wound culture - pending, f/u air mattress ordered Dr. Watson consulted; recs appreciated Dr. Baltazar consulted; recs appreciated Dr. Simeon on consult - recs appreciated Dr. Medrano consulted; recs appreciated Will continue to follow <Kristen Oliva - Last Filed: 07/12/18 14:15> Objective - Vital Signs/Intake and Output Vital Signs (last 24 hours): Temp Pulse Resp BP Pulse Ox 97.7 F 54 L 16 132/90 99 07/12/18 06:00 07/12/18 06:00 07/12/18 06:00 07/12/18 09:19 07/12/18 06:00 Intake and Output: 07/12/18 07/12/18 06:59 18:59 Intake Total 600 Output Total 600 Balance 0 - Medications Medications: Current Medications Acetaminophen (Tylenol 325mg Tab) 650 mg PO Q6H PRN PRN Reason: Pain, moderate (4-7) Last Admin: 07/10/18 23:49 Dose: 650 mg Alprazolam (Xanax) 0.25 mg PO DAILY [facility]; Protocol Stop: 07/14/18 10:01 Last Admin: 07/12/18 09:20 Dose: Not Given Apixaban (Eliquis) 2.5 mg PO Q12 [facility]; Protocol Last Admin: 07/12/18 09:19 Dose: 2.5 mg Atenolol (Tenormin) 12.5 mg PO BID [facility] Atorvastatin Calcium (Lipitor) 20 mg PO HS [facility] Last Admin: 07/11/18 23:03 Dose: 20 mg Cadexomer Iodine (Iodosorb) 1 gm TOP DAILY [facility] Calcium Carbonate (Caltrate) 600 mg PO DAILY [facility] Last Admin: 07/12/18 09:20 Dose: 600 mg Cholecalciferol (Vitamin D) 2,000 intlu PO DAILY [facility] Last Admin: 07/12/18 09:20 Dose: 2,000 intlu Digoxin (Digoxin) 0.125 mg PO 1400 [facility] Last Admin: 07/12/18 14:00 Dose: Not Given Docusate Sodium (Colace) 100 mg PO BID [facility] Last Admin: 07/12/18 09:20 Dose: 100 mg Furosemide (Lasix) 40 mg PO DAILY [facility] Last Admin: 07/12/18 09:19 Dose: 40 mg Meropenem (Merrem Iv 1 Gm Premix) 1 gm in 50 mls @ 100 mls/hr IVPB Q8 [facility]; Protocol Stop: 07/14/18 14:01 Last Admin: 07/12/18 13:13 Dose: 100 mls/hr Daptomycin 472 mg/ Sodium (Chloride) 100 mls @ 200 mls/hr IV Q24H [facility]; Protocol Stop: 07/14/18 14:01 Last Admin: 07/12/18 14:00 Dose: 200 mls/hr Mirtazapine (Remeron) 15 mg PO HS [facility] Last Admin: 07/11/18 23:03 Dose: 15 mg Pantoprazole Sodium (Protonix Ec Tab) 40 mg PO DAILY [facility] Last Admin: 07/12/18 09:19 Dose: 40 mg - Labs Labs: 07/12/18 06:00 07/12/18 06:00 PT 18.9 SECONDS (9.4-12.5) H 07/06/18 13:50 INR 1.63 07/06/18 13:50 APTT 33.5 Seconds (25.1-36.5) 07/06/18 13:50 Attending/Attestation - Attestation I have personally seen and examined this patient.: Yes I have fully participated in the care of the patient.: Yes I have reviewed all pertinent clinical information, including history, physical exam and plan: Yes
--- NOTE | 2018-07-09 15:44 | CP.PCM.PN ---
<Francisco Pacheco - Last Filed: 07/09/18 15:33> Subjective - Date & Time of Evaluation Date of Evaluation: 07/09/18 Time of Evaluation: 09:33 - Subjective Subjective: Francisco Pacheco [facility] Progress Note Patient seen and examined at bedside this morning. No acute events reported overnight. Denies CP, SOB, fevers, nausea, vomiting, chills, numbness, tingling and swelling. Offers no new complaints today. Objective - Vital Signs/Intake and Output Vital Signs (last 24 hours): Temp Pulse Resp BP Pulse Ox 97.2 F L 77 18 151/86 H 96 07/09/18 12:00 07/09/18 12:00 07/09/18 12:00 07/09/18 12:00 07/09/18 06:00 Intake and Output: 07/09/18 07/09/18 06:59 18:59 Intake Total 600 150 Output Total 150 Balance 450 150 - Medications Medications: Current Medications Acetaminophen (Tylenol 325mg Tab) 650 mg PO Q6H PRN PRN Reason: Pain, moderate (4-7) Last Admin: 07/07/18 09:56 Dose: 650 mg Alprazolam (Xanax) 0.25 mg PO DAILY [facility]; Protocol Stop: 07/14/18 10:01 Last Admin: 07/09/18 11:53 Dose: Not Given Apixaban (Eliquis) 2.5 mg PO Q12 [facility]; Protocol Last Admin: 07/09/18 10:40 Dose: 2.5 mg Atorvastatin Calcium (Lipitor) 20 mg PO HS [facility] Last Admin: 07/08/18 22:00 Dose: 20 mg Digoxin (Digoxin) 0.125 mg PO 1400 [facility] Docusate Sodium (Colace) 100 mg PO BID [facility] Last Admin: 07/09/18 10:39 Dose: Not Given Furosemide (Lasix) 40 mg PO DAILY [facility] Last Admin: 07/09/18 10:39 Dose: 40 mg Meropenem (Merrem Iv 1 Gm Premix) 1 gm in 50 mls @ 100 mls/hr IVPB Q8 [facility]; Protocol Stop: 07/14/18 14:01 Last Admin: 07/09/18 15:20 Dose: 100 mls/hr Daptomycin 472 mg/ Sodium (Chloride) 100 mls @ 200 mls/hr IV Q24H [facility]; Protocol Stop: 07/14/18 14:01 Last Admin: 07/08/18 13:57 Dose: 200 mls/hr Mirtazapine (Remeron) 15 mg PO HS [facility] Last Admin: 07/08/18 21:33 Dose: 15 mg Oxycodone/Acetaminophen (Percocet 2.5/325 Mg Tab) 1 tab PO Q6H PRN PRN Reason: Pain, severe (8-10) Pantoprazole Sodium (Protonix Ec Tab) 40 mg PO DAILY [facility] Last Admin: 07/09/18 10:39 Dose: 40 mg - Labs Labs: 07/09/18 06:15 07/09/18 06:15 PT 18.9 SECONDS (9.4-12.5) H 07/06/18 13:50 INR 1.63 07/06/18 13:50 APTT 33.5 Seconds (25.1-36.5) 07/06/18 13:50 - Additional Findings Additional findings: - Constitutional Appears: Non-toxic, No Acute Distress - Head Exam Head Exam: ATRAUMATIC, NORMOCEPHALIC - Eye Exam Eye Exam: EOMI, Normal appearance, PERRL - ENT Exam ENT Exam: Mucous Membranes Moist - Respiratory Exam Respiratory Exam: Clear to Auscultation Bilateral, NORMAL BREATHING PATTERN. absent: Rales, Rhonchi, Wheezes - Cardiovascular Exam Cardiovascular Exam: REGULAR RHYTHM, +S1, +S2. absent: Gallop, Rubs, Systolic Murmur - GI/Abdominal Exam GI & Abdominal Exam: Normal Bowel Sounds, Soft. absent: Distended, Guarding, Organomegaly, Rigid, Tenderness - Extremities Exam Extremities exam: Positive for: normal capillary refill, normal inspection, tenderness to right knee, pedal pulses present B/L. Negative for: pedal edema - Neurological Exam Neurological exam: Alert, CN II-XII Intact, Oriented x3 - Skin Skin Exam: Dry, Intact, Normal Color, Warm. Right knee lateral ulcer measuring 4cm x 3cm, not actively bleeding/draining. Granulation tissue present. 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 Admitted for CHF exacerbation, bradycardia. Discharge planning. Plan: Bradycardia -will restart digoxin, digoxin level 1.1 today -EKG: HR 54, A-fib with slow ventricular response, demonstrating signs of digoxin toxicity -denies nausea/vomiting -vitals reviewed, HR 66-80 overnight -cardio on consult RLE ulcer -hx of right knee prosthesis, periprosthetic infection with VRE -afebrile, no WBC -ID on consult, Dr Mi -ortho on consult, Dr Narvaez -podiatry on consult -IV daptpmycin and merrem, day 3 -blood cx no growth 48 hours, wound cx shows no growth -percocet, tylenol prn pain -Ext US negative for DVT B/L -hyperbaric oxygen CHF exacerbation - -resolved -no SOB, mild leg swelling B/L -Trop elevated at 0.06 x3 -BNP 7570 on admission, CK negative -CXR: small b/l pleural effusions -Strict I's/O's, daily weights -Lasix 40 PO daily Hypokalemia -K 3.4 today, repleted, f/u labs Hx afib -continue eliquis 2.5mg BID Hx CAD -restart digoxin -Trop 0.06 x 3 Hx anxiety/mood disorder -continue home mirtazapine -Xanax daily PPX/Diet -eliquis, protonix -HHD Patient seen and case discussed with attending, Dr. Mahmood <Travis Mahmood - Last Filed: 07/14/18 15:55> Objective - Vital Signs/Intake and Output Vital Signs (last 24 hours): Temp Pulse Resp BP Pulse Ox 98.3 F 65 18 110/7 L 97 07/14/18 06:00 07/14/18 09:41 07/14/18 06:00 07/14/18 09:34 07/14/18 06:00 Intake and Output: 07/14/18 07/14/18 06:59 18:59 Intake Total 730 Output Total 550 Balance 180 - Medications Medications: Current Medications Acetaminophen (Tylenol 325mg Tab) 650 mg PO Q6H PRN PRN Reason: Pain, moderate (4-7) Last Admin: 07/10/18 23:49 Dose: 650 mg Apixaban (Eliquis) 2.5 mg PO Q12 [facility]; Protocol Last Admin: 07/14/18 09:34 Dose: 2.5 mg Atenolol (Tenormin) 12.5 mg PO BID [facility] Last Admin: 07/14/18 09:41 Dose: 12.5 mg Atorvastatin Calcium (Lipitor) 20 mg PO HS [facility] Last Admin: 07/13/18 21:49 Dose: 20 mg Cadexomer Iodine (Iodosorb) 0 gm TOP DAILY [facility] Calcium Carbonate (Caltrate) 600 mg PO DAILY [facility] Last Admin: 07/14/18 09:33 Dose: 600 mg Cholecalciferol (Vitamin D) 2,000 intlu PO DAILY [facility] Last Admin: 07/14/18 09:34 Dose: 2,000 intlu Digoxin (Digoxin) 0.125 mg PO 1400 [facility] Last Admin: 07/14/18 14:59 Dose: 0.125 mg Docusate Sodium (Colace) 100 mg PO BID [facility] Last Admin: 07/14/18 09:39 Dose: Not Given Furosemide (Lasix) 40 mg PO DAILY [facility] Last Admin: 07/14/18 09:34 Dose: 40 mg Meropenem (Merrem Iv 1 Gm Premix) 1 gm in 50 mls @ 100 mls/hr IVPB Q8 [facility]; Protocol Stop: 07/21/18 22:18 Last Admin: 07/14/18 14:33 Dose: 100 mls/hr Daptomycin 410 mg/ Sodium (Chloride) 100 mls @ 200 mls/hr IV Q24H [facility]; Protocol Stop: 07/21/18 14:01 Last Admin: 07/14/18 14:36 Dose: 200 mls/hr Mirtazapine (Remeron) 15 mg PO HS [facility] Last Admin: 07/14/18 06:51 Dose: Not Given Pantoprazole Sodium (Protonix Ec Tab) 40 mg PO DAILY [facility] Last Admin: 07/14/18 09:34 Dose: 40 mg Potassium Chloride (Klor-Con 10) 40 meq PO Q4 [facility] Stop: 07/14/18 16:01 Last Admin: 07/14/18 14:33 Dose: 40 meq - Labs Labs: 07/14/18 05:20 07/14/18 13:35 PT 18.9 SECONDS (9.4-12.5) H 07/06/18 13:50 INR 1.63 07/06/18 13:50 APTT 33.5 Seconds (25.1-36.5) 07/06/18 13:50 Attending/Attestation - Attestation I have personally seen and examined this patient.: Yes I have fully participated in the care of the patient.: Yes I have reviewed all pertinent clinical information, including history, physical exam and plan: Yes Notes (Text): Right knee infection, with negative blood and wound culture. Ortho and ID on board c/w daptomycin and merrem Bradycardia in the setting of A fib most likely 2/2 dig toxicity now resolved resume digoxin today c/w eliquis CHF CAD Anxiety
[2018-07-09] MEDS: Digoxin 125 mcg (0.125 mg) Tab PO SCH (16:24)
[2018-07-09] MEDS: DAPTOMYCIN IV SCH (16:25)
[2018-07-09] MEDS: SODIUM CHLORIDE 0.9% IV SCH (16:25)
--- NOTE | 2018-07-09 18:30 | CP.PCM.PN ---
Subjective - Date & Time of Evaluation Date of Evaluation: 07/09/18 Time of Evaluation: 10:12 - Subjective Subjective: Patient seen. Alert and awake, sitting up in bed. Patient only admits to pain with movement of the right leg. Afebrile WBC 7.6 Hgb 8.1 R knee: serous drainage noted on dressing. Dressings changed. Some active serous drainage noted in area of the sinus tract. Most proximal and distal incision healed. Middle aspect of incision is improving. Pitting edema noted of lower extremity. Calf and thigh soft and non-tender to palpation. Grossly, NVI distally Cont abx per ID Cont Hyperbaric therapy Cont local wound care Will continue to follow Objective - Vital Signs/Intake and Output Vital Signs (last 24 hours): Temp Pulse Resp BP Pulse Ox 98.4 F 77 18 108/62 96 07/09/18 06:00 07/09/18 06:00 07/09/18 06:00 07/09/18 06:00 07/09/18 06:00 Intake and Output: 07/09/18 07/09/18 06:59 18:59 Intake Total 600 Output Total 150 Balance 450 - Medications Medications: Current Medications Acetaminophen (Tylenol 325mg Tab) 650 mg PO Q6H PRN PRN Reason: Pain, moderate (4-7) Last Admin: 07/07/18 09:56 Dose: 650 mg Alprazolam (Xanax) 0.25 mg PO DAILY [facility]; Protocol Stop: 07/14/18 10:01 Last Admin: 07/08/18 09:13 Dose: 0.25 mg Apixaban (Eliquis) 2.5 mg PO Q12 [facility]; Protocol Last Admin: 07/08/18 21:33 Dose: 2.5 mg Atorvastatin Calcium (Lipitor) 20 mg PO HS [facility] Last Admin: 07/08/18 22:00 Dose: 20 mg Digoxin (Digoxin) 0.125 mg PO 1400 [facility] Docusate Sodium (Colace) 100 mg PO BID [facility] Last Admin: 07/08/18 17:19 Dose: 100 mg Furosemide (Lasix) 40 mg PO DAILY [facility] Meropenem (Merrem Iv 1 Gm Premix) 1 gm in 50 mls @ 100 mls/hr IVPB Q8 [facility]; Protocol Stop: 07/14/18 14:01 Last Admin: 07/09/18 05:25 Dose: 100 mls/hr Daptomycin 472 mg/ Sodium (Chloride) 100 mls @ 200 mls/hr IV Q24H [facility]; Protocol Stop: 07/14/18 14:01 Last Admin: 07/08/18 13:57 Dose: 200 mls/hr Mirtazapine (Remeron) 15 mg PO HS [facility] Last Admin: 07/08/18 21:33 Dose: 15 mg Oxycodone/Acetaminophen (Percocet 2.5/325 Mg Tab) 1 tab PO Q6H PRN PRN Reason: Pain, severe (8-10) Pantoprazole Sodium (Protonix Ec Tab) 40 mg PO DAILY [facility] Last Admin: 07/08/18 09:13 Dose: 40 mg - Labs Labs: 07/09/18 06:15 07/09/18 06:15 PT 18.9 SECONDS (9.4-12.5) H 07/06/18 13:50 INR 1.63 07/06/18 13:50 APTT 33.5 Seconds (25.1-36.5) 07/06/18 13:50
--- NOTE | 2018-07-10 01:33 | CON ---
DATE OF CONSULTATION: 07/09/2018 TIME OF CONSULTATION: 6:30 p.m. CHIEF COMPLAINT/HISTORY OF PRESENT ILLNESS: This is an 82-year-old female who was admitted for leg pain. Her history is significant for a right total knee replacement in 02/2018. She subsequently had the prosthesis removed for infection and was treated with long-term antibiotics. She has a ulceration/wound at the knee level. The patient obviously is at high risk for DVT given her current situation. She is on low-dose Eliquis. She has had multiple lower extremity venous ultrasounds at [facility] dating back to 03/2018 and they have all been negative for RLE DVT. I have been asked to assess her circulation. Her DENNIS/PVR exam, which was done on admission, is limited by artifact. The resting ABIs are normal. No significant segmental gradients are seen. The PVR waveforms not accurate. PHYSICAL EXAMINATION: Her feet are warm bilaterally. Capillary refill is normal. Motor and sensory exam is normal. She has palpable femoral and posterior tibial pulses bilaterally. IMPRESSION AND PLAN: The patient has adequate arterial circulation at the present time. She does have a history of atrial fibrillation. She is on low-dose Eliquis. No further vascular testing is necessary at this time. Currently, she is receiving antibiotics, wound care, and hyperbaric treatments (hopefully). Satnam Baltazar MD [facility]
--- NOTE | 2018-07-10 01:34 | PN ---
DATE: 07/09/2018 SUBJECTIVE: The patient is in bed, in no acute distress. PHYSICAL EXAMINATION: VITAL SIGNS: Temperature is 98, blood pressure is 130/70, respiratory rate of 18. HEENT: Unremarkable. NECK: Supple. LUNGS: Have decreased breath sounds. HEART: Normal S1, S2. ABDOMEN: Soft. LABORATORY DATA: Reveals a white count of 7.6, hemoglobin of 8, BUN of 7, creatinine of 0.7. Microbiology reveals the blood cultures are negative. Right knee cultures are negative. REVIEW OF ORDERS: Reveals the patient to be on daptomycin and meropenem. 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 Continue vancomycin, gentamicin, completed 6 weeks of antibiotics. Currently on daptomycin and meropenem. We will follow with you. We will discuss with Dr. Watson. Dominick Simeon MD
[2018-07-10] MEDS: Meropenem IV 1 gm in NS 1 GM/50 ML BAG IVPB SCH ×4 (05:25→21:27)
[2018-07-10 07:25] LABS: BASO # 0.05 K/mm3 (0.0-2.0); BASO % 0.7 % (0.0-3.0); EOS # 1.1 (0.0-0.7); EOS % 15.9 % (1.5-5.0); GRAN # 3.75 (1.4-6.5); GRAN % 54.2 % (50.0-68.0); HEMOGLOBIN 8.3 g/dL (12.0-16.0); LYMPH # 1.5 (1.2-3.4); LYMPH % 21.7 % (22.0-35.0); MEAN CORPUSCULAR HEMOGLOBIN 28.4 pg (25.0-35.0); MEAN CORPUSCULAR HGB CONC 32.7 g/dl (31.0-37.0); MEAN PLATELET VOLUME 10.1 fl (7.0-11.0); MONO # 0.5 (0.1-0.6); MONO % 7.5 % (1.0-6.0); RBC 2.92 10^6/uL (3.5-6.1); RED CELL DISTRIBUTION WIDTH 17.5 % (11.5-14.5); WHITE BLOOD COUNT 6.9 10^3/uL (4.5-11.0)
[2018-07-10 08:09] LABS: ALB/GLOB RATIO 0.8 (1.1-1.8); ALBUMIN 2.1 g/dL (3.0-4.8); ALT/SGPT 22 U/L (7-56); AST/SGOT 24 U/L (14-36); BLOOD UREA NITROGEN 5 mg/dL (7-21); CALCIUM 7.6 mg/dL (8.4-10.5); GFR NON-AFRICAN AMERICAN > 60
--- NOTE | 2018-07-10 08:21 | CP.PCM.PN ---
Subjective - Date & Time of Evaluation Date of Evaluation: 07/10/18 Time of Evaluation: 08:18 - Subjective Subjective: Pt awake, alert. Adequate pain control. Afebrile, VSS R knee: wound unchanged knee immobilizer in place grossly nvi distally Plan cont antibiotics will discuss with ID cont hyperbaric PT at this point, not a candidate for reimplantation Objective - Vital Signs/Intake and Output Vital Signs (last 24 hours): Temp Pulse Resp BP Pulse Ox 97.9 F 61 20 136/64 98 07/10/18 06:00 07/10/18 06:00 07/10/18 06:00 07/10/18 06:00 07/10/18 06:00 - Medications Medications: Current Medications Acetaminophen (Tylenol 325mg Tab) 650 mg PO Q6H PRN PRN Reason: Pain, moderate (4-7) Last Admin: 07/09/18 16:24 Dose: 650 mg Alprazolam (Xanax) 0.25 mg PO DAILY [facility]; Protocol Stop: 07/14/18 10:01 Last Admin: 07/09/18 11:53 Dose: Not Given Apixaban (Eliquis) 2.5 mg PO Q12 [facility]; Protocol Last Admin: 07/09/18 22:00 Dose: 2.5 mg Atorvastatin Calcium (Lipitor) 20 mg PO HS [facility] Last Admin: 07/09/18 22:01 Dose: 20 mg Digoxin (Digoxin) 0.125 mg PO 1400 [facility] Last Admin: 07/09/18 16:24 Dose: 0.125 mg Docusate Sodium (Colace) 100 mg PO BID [facility] Last Admin: 07/09/18 18:46 Dose: Not Given Furosemide (Lasix) 40 mg PO DAILY [facility] Last Admin: 07/09/18 10:39 Dose: 40 mg Meropenem (Merrem Iv 1 Gm Premix) 1 gm in 50 mls @ 100 mls/hr IVPB Q8 [facility]; Protocol Stop: 07/14/18 14:01 Last Admin: 07/10/18 08:01 Dose: 100 mls/hr Daptomycin 472 mg/ Sodium (Chloride) 100 mls @ 200 mls/hr IV Q24H [facility]; Protocol Stop: 07/14/18 14:01 Last Admin: 07/09/18 16:25 Dose: 200 mls/hr Mirtazapine (Remeron) 15 mg PO HS [facility] Last Admin: 07/09/18 22:02 Dose: 15 mg Oxycodone/Acetaminophen (Percocet 2.5/325 Mg Tab) 1 tab PO Q6H PRN PRN Reason: Pain, severe (8-10) Pantoprazole Sodium (Protonix Ec Tab) 40 mg PO DAILY [facility] Last Admin: 07/09/18 10:39 Dose: 40 mg - Labs Labs: 07/10/18 06:45 07/10/18 06:45 PT 18.9 SECONDS (9.4-12.5) H 07/06/18 13:50 INR 1.63 07/06/18 13:50 APTT 33.5 Seconds (25.1-36.5) 07/06/18 13:50
--- NOTE | 2018-07-10 08:47 | CP.PCM.PN ---
Subjective - Date & Time of Evaluation Date of Evaluation: 07/10/18 Time of Evaluation: 06:25 - Subjective Subjective: Awake, alert, feels cold Reason for consultation and follow up: Cardiac evaluation of bradycardia, history of atrial fibrillation , on Digoxin, elevated digoxin level on admission. Seen and examined by me and Dr. Medrano Objective - Vital Signs/Intake and Output Vital Signs (last 24 hours): Temp Pulse Resp BP Pulse Ox 97.9 F 61 20 136/64 98 07/10/18 06:00 07/10/18 06:00 07/10/18 06:00 07/10/18 06:00 07/10/18 06:00 - Medications Medications: Current Medications Acetaminophen (Tylenol 325mg Tab) 650 mg PO Q6H PRN PRN Reason: Pain, moderate (4-7) Last Admin: 07/09/18 16:24 Dose: 650 mg Alprazolam (Xanax) 0.25 mg PO DAILY [facility]; Protocol Stop: 07/14/18 10:01 Last Admin: 07/09/18 11:53 Dose: Not Given Apixaban (Eliquis) 2.5 mg PO Q12 [facility]; Protocol Last Admin: 07/09/18 22:00 Dose: 2.5 mg Atorvastatin Calcium (Lipitor) 20 mg PO HS [facility] Last Admin: 07/09/18 22:01 Dose: 20 mg Digoxin (Digoxin) 0.125 mg PO 1400 [facility] Last Admin: 07/09/18 16:24 Dose: 0.125 mg Docusate Sodium (Colace) 100 mg PO BID [facility] Last Admin: 07/09/18 18:46 Dose: Not Given Furosemide (Lasix) 40 mg PO DAILY [facility] Last Admin: 07/09/18 10:39 Dose: 40 mg Meropenem (Merrem Iv 1 Gm Premix) 1 gm in 50 mls @ 100 mls/hr IVPB Q8 [facility]; Protocol Stop: 07/14/18 14:01 Last Admin: 07/10/18 08:01 Dose: 100 mls/hr Daptomycin 472 mg/ Sodium (Chloride) 100 mls @ 200 mls/hr IV Q24H [facility]; Protocol Stop: 07/14/18 14:01 Last Admin: 07/09/18 16:25 Dose: 200 mls/hr Mirtazapine (Remeron) 15 mg PO HS [facility] Last Admin: 07/09/18 22:02 Dose: 15 mg Oxycodone/Acetaminophen (Percocet 2.5/325 Mg Tab) 1 tab PO Q6H PRN PRN Reason: Pain, severe (8-10) Pantoprazole Sodium (Protonix Ec Tab) 40 mg PO DAILY [facility] Last Admin: 07/09/18 10:39 Dose: 40 mg - Labs Labs: 07/10/18 06:45 07/10/18 06:45 PT 18.9 SECONDS (9.4-12.5) H 07/06/18 13:50 INR 1.63 07/06/18 13:50 APTT 33.5 Seconds (25.1-36.5) 07/06/18 13:50 - Constitutional Appears: Non-toxic, No Acute Distress - Head Exam Head Exam: NORMAL INSPECTION, NORMOCEPHALIC - Eye Exam Eye Exam: Normal appearance Pupil Exam: NORMAL ACCOMODATION - ENT Exam ENT Exam: Mucous Membranes Dry - Respiratory Exam Respiratory Exam: Decreased Breath Sounds, Clear to Ausculation Bilateral, NORMAL BREATHING PATTERN - Cardiovascular Exam Cardiovascular Exam: +S1, +S2 - GI/Abdominal Exam GI & Abdominal Exam: Soft, Normal Bowel Sounds - Extremities Exam Additional comments: right knee immobilizer elevated with pillow - Neurological Exam Neurological Exam: Alert, Awake - Psychiatric Exam Psychiatric exam: Normal Affect, Normal Mood - Skin Skin Exam: Dry, Normal Color, Warm Assessment and Plan - Assessment and Plan (Free Text) Assessment: A 82 year old female who was admitted to the ER due to leg pain and vomiting. History of hypertension, coronary artery disease,post PTCA 1999, PPM, post infected and removal, chronic atrial fibrillation on Coumadin, osteoarthritis, recent right knee replacement with history of periprosthetic infection. Admitted for generalized weakness and vomiting. On admission bradycardia, elevated digoxin level, digoxin toxicity. DNR/DNI. Ortho on consult for knee. ID on consult. Plan: Feels cold, extra blankets provided by RN No distress Recent Digoxin level 1.1 Restarted digoxin at 0.125 mg daily Heart rate stable Blood pressure controlled On Eliquis 2.5 mg daily,Lipitor 20 mg daily, Digoxin 0.125 mg daily, Lasix 40 mg daily, Continue IV antibiotics as ordered by ID Ortho on consult Replenish potassium Continue current medications Continue current treatment Nutritional support Will follow up Plan and treatment discussed with Dr. Medrano
--- NOTE | 2018-07-10 09:12 | CP.PCM.PN ---
<Soco Reaves - Last Filed: 07/10/18 09:13> Subjective - Date & Time of Evaluation Date of Evaluation: 07/10/18 Time of Evaluation: 09:11 - Subjective Subjective: Podiatry progress note for Dr. Oliva 82F seen and evaluated at bedside. Resting comfortably with right leg dressed and elevated on pillows. States she is in moderated amount of pain in her knee. Denies fever, nausea, vomiting, chills. Has no other acute complaints. Objective - Vital Signs/Intake and Output Vital Signs (last 24 hours): Temp Pulse Resp BP Pulse Ox 97.9 F 61 20 136/64 98 07/10/18 06:00 07/10/18 06:00 07/10/18 06:00 07/10/18 06:00 07/10/18 06:00 - Medications Medications: Current Medications Acetaminophen (Tylenol 325mg Tab) 650 mg PO Q6H PRN PRN Reason: Pain, moderate (4-7) Last Admin: 07/09/18 16:24 Dose: 650 mg Alprazolam (Xanax) 0.25 mg PO DAILY [facility]; Protocol Stop: 07/14/18 10:01 Last Admin: 07/09/18 11:53 Dose: Not Given Apixaban (Eliquis) 2.5 mg PO Q12 [facility]; Protocol Last Admin: 07/09/18 22:00 Dose: 2.5 mg Atorvastatin Calcium (Lipitor) 20 mg PO HS [facility] Last Admin: 07/09/18 22:01 Dose: 20 mg Digoxin (Digoxin) 0.125 mg PO 1400 [facility] Last Admin: 07/09/18 16:24 Dose: 0.125 mg Docusate Sodium (Colace) 100 mg PO BID [facility] Last Admin: 07/09/18 18:46 Dose: Not Given Furosemide (Lasix) 40 mg PO DAILY [facility] Last Admin: 07/09/18 10:39 Dose: 40 mg Meropenem (Merrem Iv 1 Gm Premix) 1 gm in 50 mls @ 100 mls/hr IVPB Q8 [facility]; Protocol Stop: 07/14/18 14:01 Last Admin: 07/10/18 08:01 Dose: 100 mls/hr Daptomycin 472 mg/ Sodium (Chloride) 100 mls @ 200 mls/hr IV Q24H [facility]; Protocol Stop: 07/14/18 14:01 Last Admin: 07/09/18 16:25 Dose: 200 mls/hr Mirtazapine (Remeron) 15 mg PO HS [facility] Last Admin: 07/09/18 22:02 Dose: 15 mg Oxycodone/Acetaminophen (Percocet 2.5/325 Mg Tab) 1 tab PO Q6H PRN PRN Reason: Pain, severe (8-10) Pantoprazole Sodium (Protonix Ec Tab) 40 mg PO DAILY [facility] Last Admin: 07/09/18 10:39 Dose: 40 mg - Labs Labs: 07/10/18 06:45 07/10/18 06:45 PT 18.9 SECONDS (9.4-12.5) H 07/06/18 13:50 INR 1.63 07/06/18 13:50 APTT 33.5 Seconds (25.1-36.5) 07/06/18 13:50 - Constitutional Appears: Well, Non-toxic, No Acute Distress - Head Exam Head Exam: ATRAUMATIC - Eye Exam Eye Exam: Normal appearance Pupil Exam: NORMAL ACCOMODATION - ENT Exam ENT Exam: Mucous Membranes Moist - Neck Exam Neck Exam: Normal Inspection - Respiratory Exam Respiratory Exam: Clear to Ausculation Bilateral - Cardiovascular Exam Cardiovascular Exam: REGULAR RHYTHM - Extremities Exam Additional comments: RLE focused Vasc: DP/PT faintly palpable. Cap refill< 3 sec to all digits. Temp gradient warm to warm. minimal edema to right knee. Mild Periwound erythema noted. Neuro: Gross and protective sensations are intact. Derm: A wound measures 3 cm x 3 cm which is greatly improved since last admission; mild appreciation of undermining and tracking; wound base is 20% fibrotic and 80% granular; moderated serosanguinous drainage noted on the dressing. MSK: Pain on palpating the periwound area. Muscle power around the knee joint couldn't be assessed due to pain and guarding. 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 Oliva Afebrile, absent leukocytosis R knee wound cleansed with sterile saline and dressed with maxorb and optifoam Wound culture - no growth after [address] Watson consulted; recs appreciated Dr. Baltazar consulted; recs appreciated Dr. Simeon on consult - recs appreciated Dr. Medrano consulted; recs appreciated Will continue to follow <Kristen Oliva - Last Filed: 07/12/18 14:13> Objective - Vital Signs/Intake and Output Vital Signs (last 24 hours): Temp Pulse Resp BP Pulse Ox 97.7 F 54 L 16 132/90 99 07/12/18 06:00 07/12/18 06:00 07/12/18 06:00 07/12/18 09:19 07/12/18 06:00 Intake and Output: 07/12/18 07/12/18 06:59 18:59 Intake Total 600 Output Total 600 Balance 0 - Medications Medications: Current Medications Acetaminophen (Tylenol 325mg Tab) 650 mg PO Q6H PRN PRN Reason: Pain, moderate (4-7) Last Admin: 07/10/18 23:49 Dose: 650 mg Alprazolam (Xanax) 0.25 mg PO DAILY [facility]; Protocol Stop: 07/14/18 10:01 Last Admin: 07/12/18 09:20 Dose: Not Given Apixaban (Eliquis) 2.5 mg PO Q12 [facility]; Protocol Last Admin: 07/12/18 09:19 Dose: 2.5 mg Atenolol (Tenormin) 12.5 mg PO BID [facility] Atorvastatin Calcium (Lipitor) 20 mg PO HS [facility] Last Admin: 07/11/18 23:03 Dose: 20 mg Cadexomer Iodine (Iodosorb) 1 gm TOP DAILY [facility] Calcium Carbonate (Caltrate) 600 mg PO DAILY [facility] Last Admin: 07/12/18 09:20 Dose: 600 mg Cholecalciferol (Vitamin D) 2,000 intlu PO DAILY [facility] Last Admin: 07/12/18 09:20 Dose: 2,000 intlu Digoxin (Digoxin) 0.125 mg PO 1400 [facility] Last Admin: 07/12/18 14:00 Dose: Not Given Docusate Sodium (Colace) 100 mg PO BID [facility] Last Admin: 07/12/18 09:20 Dose: 100 mg Furosemide (Lasix) 40 mg PO DAILY [facility] Last Admin: 07/12/18 09:19 Dose: 40 mg Meropenem (Merrem Iv 1 Gm Premix) 1 gm in 50 mls @ 100 mls/hr IVPB Q8 [facility]; Protocol Stop: 07/14/18 14:01 Last Admin: 07/12/18 13:13 Dose: 100 mls/hr Daptomycin 472 mg/ Sodium (Chloride) 100 mls @ 200 mls/hr IV Q24H [facility]; Protocol Stop: 07/14/18 14:01 Last Admin: 07/12/18 14:00 Dose: 200 mls/hr Mirtazapine (Remeron) 15 mg PO HS [facility] Last Admin: 07/11/18 23:03 Dose: 15 mg Pantoprazole Sodium (Protonix Ec Tab) 40 mg PO DAILY [facility] Last Admin: 07/12/18 09:19 Dose: 40 mg - Labs Labs: 07/12/18 06:00 07/12/18 06:00 PT 18.9 SECONDS (9.4-12.5) H 07/06/18 13:50 INR 1.63 07/06/18 13:50 APTT 33.5 Seconds (25.1-36.5) 07/06/18 13:50 Attending/Attestation - Attestation I have personally seen and examined this patient.: Yes I have fully participated in the care of the patient.: Yes I have reviewed all pertinent clinical information, including history, physical exam and plan: Yes
[2018-07-10] MEDS ORDERED: Potassium Chloride 20 mEq ER Tab PO STA (09:15)
[2018-07-10] MEDS: Pantoprazole 40 mg EC Tab PO SCH (10:51)
--- NOTE | 2018-07-10 11:35 | RAD ---
Date of service: 07/10/2018 HISTORY: pleural effusions COMPARISON: 07/08/2018 TECHNIQUE: Chest PA and lateral FINDINGS: LUNGS: No active pulmonary disease. PLEURA: Small pleural effusions CARDIOVASCULAR: No aortic atherosclerotic calcification present. Moderate cardiomegaly no pulmonary vascular congestion. OSSEOUS STRUCTURES: No significant abnormalities. VISUALIZED UPPER ABDOMEN: Normal. OTHER FINDINGS: None. IMPRESSION: Moderate cardiomegaly. Small pleural effusions
--- NOTE | 2018-07-10 12:47 | CP.PCM.APN ---
Subjective - Date & Time of Evaluation Date of Evaluation: 07/10/18 Time of Evaluation: 11:45 - Subjective Subjective: pt seen in bed getting am care by nursing assistants pt in no acute distress Review of Systems - Musculoskeletal Musculoskeletal: Limited Range of Motion Additional comments: right knee pain Objective - Vital Signs/Intake and Output Vital Signs (last 24 hours): Temp Pulse Resp BP Pulse Ox 97.5 F L 73 20 119/64 98 07/10/18 12:00 07/10/18 12:00 07/10/18 12:00 07/10/18 12:00 07/10/18 06:00 - Medications Medications: Current Medications Acetaminophen (Tylenol 325mg Tab) 650 mg PO Q6H PRN PRN Reason: Pain, moderate (4-7) Last Admin: 07/09/18 16:24 Dose: 650 mg Alprazolam (Xanax) 0.25 mg PO DAILY [facility]; Protocol Stop: 07/14/18 10:01 Last Admin: 07/10/18 10:55 Dose: Not Given Apixaban (Eliquis) 2.5 mg PO Q12 [facility]; Protocol Last Admin: 07/10/18 10:51 Dose: 2.5 mg Atorvastatin Calcium (Lipitor) 20 mg PO HS [facility] Last Admin: 07/09/18 22:01 Dose: 20 mg Digoxin (Digoxin) 0.125 mg PO 1400 [facility] Last Admin: 07/09/18 16:24 Dose: 0.125 mg Docusate Sodium (Colace) 100 mg PO BID [facility] Last Admin: 07/10/18 11:18 Dose: Not Given Furosemide (Lasix) 40 mg PO DAILY [facility] Last Admin: 07/10/18 10:51 Dose: 40 mg Meropenem (Merrem Iv 1 Gm Premix) 1 gm in 50 mls @ 100 mls/hr IVPB Q8 [facility]; Protocol Stop: 07/14/18 14:01 Last Admin: 07/10/18 08:01 Dose: 100 mls/hr Daptomycin 472 mg/ Sodium (Chloride) 100 mls @ 200 mls/hr IV Q24H [facility]; Protocol Stop: 07/14/18 14:01 Last Admin: 07/09/18 16:25 Dose: 200 mls/hr Mirtazapine (Remeron) 15 mg PO HS [facility] Last Admin: 07/09/18 22:02 Dose: 15 mg Oxycodone/Acetaminophen (Percocet 2.5/325 Mg Tab) 1 tab PO Q6H PRN PRN Reason: Pain, severe (8-10) Pantoprazole Sodium (Protonix Ec Tab) 40 mg PO DAILY [facility] Last Admin: 07/10/18 10:51 Dose: 40 mg - Labs Labs: 07/10/18 06:45 07/10/18 06:45 PT 18.9 SECONDS (9.4-12.5) H 07/06/18 13:50 INR 1.63 07/06/18 13:50 APTT 33.5 Seconds (25.1-36.5) 07/06/18 13:50 - Constitutional Appears: Non-toxic, No Acute Distress - Head Exam Head Exam: NORMOCEPHALIC - Eye Exam Eye Exam: Normal appearance - ENT Exam ENT Exam: Mucous Membranes Moist - Neck Exam Neck Exam: Normal Inspection - Respiratory Exam Respiratory Exam: NORMAL BREATHING PATTERN - Cardiovascular Exam Cardiovascular Exam: +S1, +S2 - GI/Abdominal Exam GI & Abdominal Exam: Normal Bowel Sounds - Extremities Exam Extremities Exam: Normal Capillary Refill - Psychiatric Exam Psychiatric exam: Normal Affect Assessment and Plan - Assessment and Plan (Free Text) Plan: 82 yr white female with pmh sig for htn, cad, 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 pt remains on iV antibiotics , spoke to ID who states that patient will need 4 to 6 weeks spoke to PMD - new mid/PICC line ordered pt with podiatry and vasc consults on board- recs noted per Ortho note, not a candidate for re-implantation at this point. spoke to cm and sw regarding dapto and merrem needed for 4 to 6 additional weeks. will continue to follow BPCI/TIC - BPCIA/TIC Educated pt/family on BPCIA/CIR/Med to Bed Programs: N/A Flyers given, including [facility] Beneficiary letter: N/A Pt/family verbalized understanding & agreed to program: N/A
[2018-07-10] MEDS: Digoxin 125 mcg (0.125 mg) Tab PO SCH (13:34)
[2018-07-10] MEDS: SODIUM CHLORIDE 0.9% IV SCH (14:40)
[2018-07-10] MEDS: DAPTOMYCIN IV SCH (14:40)
--- NOTE | 2018-07-10 14:59 | CP.PCM.PN ---
<Francisco Pacheco - Last Filed: 07/10/18 14:53> Subjective - Date & Time of Evaluation Date of Evaluation: 07/10/18 Time of Evaluation: 09:45 - Subjective Subjective: Francisco Pacheco PGY1 Hospital Progress Note Patient seen and examined at bedside this morning. No acute events reported overnight. Denies CP, SOB, fevers, nausea, vomiting, chills, numbness, tingling and swelling. Offers no new complaints today. Working with case management for IV antibiotic therapy upon discharge; will need 4 weeks of IV daptomycin and merrem. Objective - Vital Signs/Intake and Output Vital Signs (last 24 hours): Temp Pulse Resp BP Pulse Ox 97.5 F L 73 20 119/64 98 07/10/18 12:00 07/10/18 12:00 07/10/18 12:00 07/10/18 12:00 07/10/18 06:00 - Medications Medications: Current Medications Acetaminophen (Tylenol 325mg Tab) 650 mg PO Q6H PRN PRN Reason: Pain, moderate (4-7) Last Admin: 07/09/18 16:24 Dose: 650 mg Alprazolam (Xanax) 0.25 mg PO DAILY [facility]; Protocol Stop: 07/14/18 10:01 Last Admin: 07/10/18 10:55 Dose: Not Given Apixaban (Eliquis) 2.5 mg PO Q12 [facility]; Protocol Last Admin: 07/10/18 10:51 Dose: 2.5 mg Atenolol (Tenormin) 12.5 mg PO BID [facility] Atorvastatin Calcium (Lipitor) 20 mg PO HS [facility] Last Admin: 07/09/18 22:01 Dose: 20 mg Digoxin (Digoxin) 0.125 mg PO 1400 [facility] Last Admin: 07/10/18 13:34 Dose: 0.125 mg Docusate Sodium (Colace) 100 mg PO BID [facility] Last Admin: 07/10/18 11:18 Dose: Not Given Furosemide (Lasix) 40 mg PO DAILY [facility] Last Admin: 07/10/18 10:51 Dose: 40 mg Meropenem (Merrem Iv 1 Gm Premix) 1 gm in 50 mls @ 100 mls/hr IVPB Q8 [facility]; Protocol Stop: 07/14/18 14:01 Last Admin: 07/10/18 13:34 Dose: 100 mls/hr Daptomycin 472 mg/ Sodium (Chloride) 100 mls @ 200 mls/hr IV Q24H [facility]; Protocol Stop: 07/14/18 14:01 Last Admin: 07/10/18 14:40 Dose: 200 mls/hr Mirtazapine (Remeron) 15 mg PO HS [facility] Last Admin: 07/09/18 22:02 Dose: 15 mg Oxycodone/Acetaminophen (Percocet 2.5/325 Mg Tab) 1 tab PO Q6H PRN PRN Reason: Pain, severe (8-10) Pantoprazole Sodium (Protonix Ec Tab) 40 mg PO DAILY [facility] Last Admin: 07/10/18 10:51 Dose: 40 mg - Labs Labs: 07/10/18 06:45 07/10/18 06:45 PT 18.9 SECONDS (9.4-12.5) H 07/06/18 13:50 INR 1.63 07/06/18 13:50 APTT 33.5 Seconds (25.1-36.5) 07/06/18 13:50 - Additional Findings Additional findings: - Constitutional Appears: Non-toxic, No Acute Distress - Head Exam Head Exam: ATRAUMATIC, NORMOCEPHALIC - Eye Exam Eye Exam: EOMI, Normal appearance, PERRL - ENT Exam ENT Exam: Mucous Membranes Moist - Respiratory Exam Respiratory Exam: Clear to Auscultation Bilateral, NORMAL BREATHING PATTERN. absent: Rales, Rhonchi, Wheezes - Cardiovascular Exam Cardiovascular Exam: REGULAR RHYTHM, +S1, +S2. absent: Gallop, Rubs, Systolic Murmur - GI/Abdominal Exam GI & Abdominal Exam: Normal Bowel Sounds, Soft. absent: Distended, Guarding, Organomegaly, Rigid, Tenderness - Extremities Exam Extremities exam: Positive for: normal capillary refill, normal inspection, tenderness to right knee, pedal pulses present B/L. Negative for: pedal edema - Neurological Exam Neurological exam: Alert, CN II-XII Intact, Oriented x3 - Skin Skin Exam: Dry, Intact, Normal Color, Warm. Right knee lateral ulcer measuring 4cm x 3cm, not actively bleeding/draining. Granulation tissue present. 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 Admitted for CHF exacerbation, bradycardia. Discharge planning. Plan: RLE ulcer -hx of right knee prosthesis, periprosthetic infection with VRE -afebrile, no WBC -ID on consult -recommend 4 weeks of IV daptomycin and merrem. Working with SW to get approval -ortho on consult, Dr Narvaez -podiatry on consult -IV daptpmycin and merrem, day 4 -blood cx no growth 3 days, wound cx shows no growth -percocet, tylenol prn pain -Ext US negative for DVT B/L -hyperbaric oxygen Bradycardia - resolved -continue home digoxin, digoxin level WNL -EKG: HR 54, A-fib with slow ventricular response, demonstrating signs of digoxin toxicity -denies nausea/vomiting -vitals reviewed, HR 70-80 overnight -cardio on consult CHF exacerbation - -resolved -no SOB, mild leg swelling B/L -Trop elevated at 0.06 x3 -BNP 7570 on admission, CK negative -CXR: small b/l pleural effusions -Strict I's/O's, daily weights -Lasix 40 PO daily Hypokalemia -K 3.4 today, repleted, f/u labs Hx afib -continue eliquis 2.5mg BID Hx CAD -Trop 0.06 x 3 -continue lipitor Hx anxiety/mood disorder -continue home mirtazapine -Xanax daily PPX/Diet -eliquis, protonix -HHD Patient seen and case discussed with attending, Dr. Lemos <Alexandre Lemos - Last Filed: 07/10/18 15:43> Objective - Vital Signs/Intake and Output Vital Signs (last 24 hours): Temp Pulse Resp BP Pulse Ox 97.5 F L 73 20 119/64 98 07/10/18 12:00 07/10/18 12:00 07/10/18 12:00 07/10/18 12:00 07/10/18 06:00 - Medications Medications: Current Medications Acetaminophen (Tylenol 325mg Tab) 650 mg PO Q6H PRN PRN Reason: Pain, moderate (4-7) Last Admin: 07/09/18 16:24 Dose: 650 mg Alprazolam (Xanax) 0.25 mg PO DAILY [facility]; Protocol Stop: 07/14/18 10:01 Last Admin: 07/10/18 10:55 Dose: Not Given Apixaban (Eliquis) 2.5 mg PO Q12 [facility]; Protocol Last Admin: 07/10/18 10:51 Dose: 2.5 mg Atenolol (Tenormin) 12.5 mg PO BID [facility] Atorvastatin Calcium (Lipitor) 20 mg PO HS [facility] Last Admin: 07/09/18 22:01 Dose: 20 mg Calcium Carbonate (Caltrate) 600 mg PO DAILY [facility] Cholecalciferol (Vitamin D) 2,000 intlu PO DAILY [facility] Digoxin (Digoxin) 0.125 mg PO 1400 [facility] Last Admin: 07/10/18 13:34 Dose: 0.125 mg Docusate Sodium (Colace) 100 mg PO BID [facility] Last Admin: 07/10/18 11:18 Dose: Not Given Furosemide (Lasix) 40 mg PO DAILY [facility] Last Admin: 07/10/18 10:51 Dose: 40 mg Meropenem (Merrem Iv 1 Gm Premix) 1 gm in 50 mls @ 100 mls/hr IVPB Q8 [facility]; Protocol Stop: 07/14/18 14:01 Last Admin: 07/10/18 13:34 Dose: 100 mls/hr Daptomycin 472 mg/ Sodium (Chloride) 100 mls @ 200 mls/hr IV Q24H [facility]; Protocol Stop: 07/14/18 14:01 Last Admin: 07/10/18 14:40 Dose: 200 mls/hr Mirtazapine (Remeron) 15 mg PO HS [facility] Last Admin: 07/09/18 22:02 Dose: 15 mg Oxycodone/Acetaminophen (Percocet 2.5/325 Mg Tab) 1 tab PO Q6H PRN PRN Reason: Pain, severe (8-10) Pantoprazole Sodium (Protonix Ec Tab) 40 mg PO DAILY [facility] Last Admin: 07/10/18 10:51 Dose: 40 mg - Labs Labs: 07/10/18 06:45 07/10/18 06:45 PT 18.9 SECONDS (9.4-12.5) H 07/06/18 13:50 INR 1.63 07/06/18 13:50 APTT 33.5 Seconds (25.1-36.5) 07/06/18 13:50 Attending/Attestation - Attestation I have personally seen and examined this patient.: Yes I have fully participated in the care of the patient.: Yes I have reviewed all pertinent clinical information, including history, physical exam and plan: Yes
--- NOTE | 2018-07-10 16:44 | PN ---
DATE: 07/10/2018 SUBJECTIVE: The patient is in bed, in no acute distress. Seen earlier this morning. No fevers and chills. PHYSICAL EXAMINATION: VITAL SIGNS: Temperature is 97, blood pressure is 119/60, respiratory rate of 20, heart rate of 80. HEENT: Unremarkable. NECK: Supple. LUNGS: Have decreased breath sounds. HEART: Normal S1 and S2. ABDOMEN: Soft, nontender. LABORATORY EXAMINATION: Reveals the sed rate is 10, C-reactive protein 37 and CPK is less than 20. Review of orders confirms the patient to be on daptomycin and meropenem. Review of microbiology reveals the repeat cultures, no growth from the right knee. ASSESSMENT AND PLAN: An 82-year-old female with chronically infected prosthetic knee joint infection, status post prosthesis, now has a spacer. The spacer has . Currently will complete 46 weeks of daptomycin and meropenem with weekly CBC, , C-reactive protein and CPK. We will follow with you. Dominick Simeon MD
--- NOTE | 2018-07-10 18:32 | PQF ---
PROVIDER RESPONSE TEXT: Chronic diastolic REVIEWER QUERY TEXT: CHF Acuity and Type Congestive Heart Failure is documented in the Medical Record. Please document the type and acuity (in cludes probable or suspected) Such as: Type: -- Systolic -- Diastolic -- Combined -- Other, please specify Acuity: -- Acute -- Chronic -- Acute on chronic -- Other, please specify Also please document the underlying cause of the CHF (includes probable or suspected) The patient's Clinical Indicators include: CHF exacerbation documented in this medical record. BNP elevated, treated with Lasix. Please specify type and acuity. Query created by: Екатерина Atkinson on 07/09/2018 2:09 PM Electronically signed by: Jay Hernandez MD 07/10/2018 6:29 PM
--- NOTE | 2018-07-10 18:52 | RAD ---
Date of service: 07/10/2018 HISTORY: s/p PICC placement COMPARISON: July 10, 2018 study performed 09:40 FINDINGS: LUNGS: No active pulmonary disease. PLEURA: No significant pleural effusion identified, no pneumothorax apparent. CARDIOVASCULAR: No atherosclerotic calcification present PICC line in satisfactory position OSSEOUS STRUCTURES: No significant abnormalities. VISUALIZED UPPER ABDOMEN: Normal. OTHER FINDINGS: None. IMPRESSION: Satisfactory position of PICC line in the superior vena cava. No pneumothorax identified. Otherwise no interval change.
--- NOTE | 2018-07-10 19:50 | PN ---
DATE: 07/10/2018 REASON FOR CONSULTATION: Followup cardiac evaluation, admitted with leg pain, found to be with bradycardia, elevated digoxin level. This note is in addition to dictated by the nurse practitioner, Peggy Cheney. Repeat digoxin level came to 1.1 yesterday, started at low dose. Heart rate is 73, blood pressure is stable. INR 1.63. IMPRESSION: An 82-year-old female with a past medical history significant for chronic atrial fibrillation, history of coronary artery disease in the past, admitted with leg pain, history of total knee replacement, was infected, and removal of the prosthesis and spacer device. RECOMMENDATIONS: Continue Eliquis for atrial fibrillation as well as DVT prophylaxis. Continue digoxin low dose. Continue atenolol. Discontinue telemetry. The patient is to hold atenolol because of low heart rate. We will resume back atenolol 12.5 mg b.i.d. and monitoring telemetry for next 24 hours. If he remained stable, we will discontinue telemetry. We will start 12.5 of atenolol p.o. b.i.d.; for the heart rate 60. Monitor in telemetry for the next 24 hours, then we can discontinue telemetry. The patient is on Eliquis for atrial fibrillation. We will supplement potassium. Thank you Dr. Hernandez for providing us the opportunity in taking care of the patient, Norma Segura. Gabbi Medrano MD
[2018-07-11] MEDS: Meropenem IV 1 gm in NS 1 GM/50 ML BAG IVPB SCH ×3 (05:14→23:06)
[2018-07-11 06:51] LABS: BASO # 0.03 K/mm3 (0.0-2.0); BASO % 0.5 % (0.0-3.0); EOS # 0.8 (0.0-0.7); EOS % 13.7 % (1.5-5.0); GRAN # 2.76 (1.4-6.5); GRAN % 47.2 % (50.0-68.0); HEMOGLOBIN 8.1 g/dL (12.0-16.0); LYMPH # 1.6 (1.2-3.4); MEAN CELL VOLUME 86.6 fl (80.0-105.0); MEAN CORPUSCULAR HEMOGLOBIN 27.8 pg (25.0-35.0); MEAN CORPUSCULAR HGB CONC 32.1 g/dl (31.0-37.0); MEAN PLATELET VOLUME 10.1 fl (7.0-11.0); MONO # 0.7 (0.1-0.6); MONO % 11.6 % (1.0-6.0); RBC 2.91 10^6/uL (3.5-6.1); RED CELL DISTRIBUTION WIDTH 17.7 % (11.5-14.5); WHITE BLOOD COUNT 5.9 10^3/uL (4.5-11.0)
--- NOTE | 2018-07-11 06:51 | CP.PCM.PN ---
Subjective - Date & Time of Evaluation Date of Evaluation: 07/11/18 Time of Evaluation: 06:20 - Subjective Subjective: Awake, alert, no distress, unable to sleep last night Reason for consultation and follow up: Cardiac evaluation of bradycardia, histor y of atrial fibrillation , on Digoxin, elevated digoxin level on admission. Seen and examined by me and Dr. Medrano Objective - Vital Signs/Intake and Output Vital Signs (last 24 hours): Temp Pulse Resp BP Pulse Ox 98.1 F 53 L 18 112/53 L 98 07/11/18 06:00 07/11/18 06:00 07/11/18 06:00 07/11/18 06:00 07/10/18 06:00 Intake and Output: 07/10/18 07/11/18 18:59 06:59 Intake Total 150 340 Output Total 950 Balance 150 -610 - Medications Medications: Current Medications Acetaminophen (Tylenol 325mg Tab) 650 mg PO Q6H PRN PRN Reason: Pain, moderate (4-7) Last Admin: 07/10/18 23:49 Dose: 650 mg Alprazolam (Xanax) 0.25 mg PO DAILY [facility]; Protocol Stop: 07/14/18 10:01 Last Admin: 07/10/18 10:55 Dose: Not Given Apixaban (Eliquis) 2.5 mg PO Q12 [facility]; Protocol Last Admin: 07/10/18 21:27 Dose: 2.5 mg Atenolol (Tenormin) 12.5 mg PO BID [facility] Last Admin: 07/10/18 18:53 Dose: 12.5 mg Atorvastatin Calcium (Lipitor) 20 mg PO HS [facility] Last Admin: 07/10/18 21:27 Dose: 20 mg Calcium Carbonate (Caltrate) 600 mg PO DAILY [facility] Cholecalciferol (Vitamin D) 2,000 intlu PO DAILY [facility] Digoxin (Digoxin) 0.125 mg PO 1400 [facility] Last Admin: 07/10/18 13:34 Dose: 0.125 mg Docusate Sodium (Colace) 100 mg PO BID [facility] Last Admin: 07/10/18 18:47 Dose: Not Given Furosemide (Lasix) 40 mg PO DAILY [facility] Last Admin: 07/10/18 10:51 Dose: 40 mg Meropenem (Merrem Iv 1 Gm Premix) 1 gm in 50 mls @ 100 mls/hr IVPB Q8 [facility]; Protocol Stop: 07/14/18 14:01 Last Admin: 07/11/18 05:14 Dose: 100 mls/hr Daptomycin 472 mg/ Sodium (Chloride) 100 mls @ 200 mls/hr IV Q24H [facility]; Protocol Stop: 07/14/18 14:01 Last Admin: 07/10/18 14:40 Dose: 200 mls/hr Mirtazapine (Remeron) 15 mg PO HS [facility] Last Admin: 07/10/18 21:27 Dose: 15 mg Pantoprazole Sodium (Protonix Ec Tab) 40 mg PO DAILY [facility] Last Admin: 07/10/18 10:51 Dose: 40 mg - Labs Labs: 07/10/18 06:45 07/10/18 06:45 PT 18.9 SECONDS (9.4-12.5) H 07/06/18 13:50 INR 1.63 07/06/18 13:50 APTT 33.5 Seconds (25.1-36.5) 07/06/18 13:50 - Constitutional Appears: Non-toxic, No Acute Distress - Head Exam Head Exam: NORMAL INSPECTION, NORMOCEPHALIC - Eye Exam Eye Exam: Normal appearance Pupil Exam: NORMAL ACCOMODATION - ENT Exam ENT Exam: Mucous Membranes Moist, Normal Exam - Respiratory Exam Respiratory Exam: Decreased Breath Sounds, Clear to Ausculation Bilateral, NORMAL BREATHING PATTERN - Cardiovascular Exam Cardiovascular Exam: +S1, +S2 - GI/Abdominal Exam GI & Abdominal Exam: Soft, Normal Bowel Sounds - Extremities Exam Additional comments: right leg with immobilizer - Neurological Exam Neurological Exam: Alert, Awake, Oriented x3 - Psychiatric Exam Psychiatric exam: Normal Affect, Normal Mood - Skin Skin Exam: Dry, Normal Color, Warm Assessment and Plan - Assessment and Plan (Free Text) Assessment: A 82 year old female who was admitted to the ER due to leg pain and vomiting. History of hypertension, coronary artery disease,post PTCA 1999, PPM, post infected and removal, chronic atrial fibrillation on Coumadin, osteoarthritis, recent right knee replacement with history of periprosthetic infection. Admitted for generalized weakness and vomiting. On admission bradycardia, elevated digoxin level, digoxin toxicity. DNR/DNI. Ortho on consult for knee. Not a surgical candidate at this time for removal of hardware. ID on consult. IV antibiotics for 4-6 weeks, for PICC/ midline catheter insertion. Plan: No distress, unable to sleep last night Digoxin toxicity resolved ,recent level 1.1 Heart rate stable Blood pressure controlled On Eliquis 2.5 mg daily,Lipitor 20 mg daily, Digoxin 0.125 mg daily, Lasix 40 mg daily, Continue IV antibiotics as ordered by ID Needed 4-6 weeks of Antibiotics per ID For PICC/midline catheter insertion Replenish potassium (K 3.4) and Magnesium (1.5) Continue current medications Continue current treatment Nutritional support Will follow up Plan and treatment discussed with Dr. Medrano
[2018-07-11 07:07] LABS: ALB/GLOB RATIO 0.8 (1.1-1.8); ALBUMIN 2.1 g/dL (3.0-4.8); ALT/SGPT 22 U/L (7-56); AST/SGOT 24 U/L (14-36); BLOOD UREA NITROGEN 5 mg/dL (7-21); CALCIUM 7.7 mg/dL (8.4-10.5); GFR NON-AFRICAN AMERICAN > 60
[2018-07-11] MEDS ORDERED: Potassium Chloride 20 mEq ER Tab PO STA (07:12)
[2018-07-11] MEDS ORDERED: Magnesium Sulfate 2 gm/50 ml 2 GM/50 ML BAG IVPB ONE (07:14)
--- NOTE | 2018-07-11 09:02 | CP.PCM.PN ---
<Soco Reaves - Last Filed: 07/11/18 11:07> Subjective - Date & Time of Evaluation Date of Evaluation: 07/11/18 Time of Evaluation: 08:51 - Subjective Subjective: Podiatry progress note for Dr. Oliva 82F seen and evaluated at bedside. Resting comfortably with right leg dressed and elevated on pillows. States she is in moderated amount of pain in her knee. Denies fever, nausea, vomiting, chills. Has no other acute complaints. Objective - Vital Signs/Intake and Output Vital Signs (last 24 hours): Temp Pulse Resp BP Pulse Ox 98.1 F 53 L 18 112/53 L 98 07/11/18 06:00 07/11/18 06:00 07/11/18 06:00 07/11/18 06:00 07/10/18 06:00 Intake and Output: 07/11/18 07/11/18 06:59 18:59 Intake Total 340 Output Total 950 Balance -610 - Medications Medications: Current Medications Acetaminophen (Tylenol 325mg Tab) 650 mg PO Q6H PRN PRN Reason: Pain, moderate (4-7) Last Admin: 07/10/18 23:49 Dose: 650 mg Alprazolam (Xanax) 0.25 mg PO DAILY [facility]; Protocol Stop: 07/14/18 10:01 Last Admin: 07/10/18 10:55 Dose: Not Given Apixaban (Eliquis) 2.5 mg PO Q12 [facility]; Protocol Last Admin: 07/10/18 21:27 Dose: 2.5 mg Atenolol (Tenormin) 12.5 mg PO BID [facility] Last Admin: 07/10/18 18:53 Dose: 12.5 mg Atorvastatin Calcium (Lipitor) 20 mg PO HS [facility] Last Admin: 07/10/18 21:27 Dose: 20 mg Calcium Carbonate (Caltrate) 600 mg PO DAILY [facility] Cholecalciferol (Vitamin D) 2,000 intlu PO DAILY [facility] Digoxin (Digoxin) 0.125 mg PO 1400 [facility] Last Admin: 07/10/18 13:34 Dose: 0.125 mg Docusate Sodium (Colace) 100 mg PO BID [facility] Last Admin: 07/10/18 18:47 Dose: Not Given Furosemide (Lasix) 40 mg PO DAILY [facility] Last Admin: 07/10/18 10:51 Dose: 40 mg Meropenem (Merrem Iv 1 Gm Premix) 1 gm in 50 mls @ 100 mls/hr IVPB Q8 [facility]; Protocol Stop: 07/14/18 14:01 Last Admin: 07/11/18 05:14 Dose: 100 mls/hr Daptomycin 472 mg/ Sodium (Chloride) 100 mls @ 200 mls/hr IV Q24H [facility]; Protocol Stop: 07/14/18 14:01 Last Admin: 07/10/18 14:40 Dose: 200 mls/hr Mirtazapine (Remeron) 15 mg PO HS [facility] Last Admin: 07/10/18 21:27 Dose: 15 mg Pantoprazole Sodium (Protonix Ec Tab) 40 mg PO DAILY [facility] Last Admin: 07/10/18 10:51 Dose: 40 mg - Labs Labs: 07/11/18 06:00 07/11/18 06:00 PT 18.9 SECONDS (9.4-12.5) H 07/06/18 13:50 INR 1.63 07/06/18 13:50 APTT 33.5 Seconds (25.1-36.5) 07/06/18 13:50 - Constitutional Appears: Well, Non-toxic, No Acute Distress - Head Exam Head Exam: ATRAUMATIC, NORMOCEPHALIC - Eye Exam Eye Exam: Normal appearance Pupil Exam: NORMAL ACCOMODATION - ENT Exam ENT Exam: Mucous Membranes Moist - Respiratory Exam Respiratory Exam: NORMAL BREATHING PATTERN - Cardiovascular Exam Cardiovascular Exam: REGULAR RHYTHM - Extremities Exam Additional comments: RLE focused Vasc: DP/PT faintly palpable. Cap refill< 3 sec to all digits. Temp gradient warm to warm. minimal edema to right knee. Mild Periwound erythema noted. Neuro: Gross and protective sensations are intact. Derm: A wound measures 3 cm x 3 cm which is greatly improved since last admission; mild appreciation of undermining and tracking; wound base is 20% fibrotic and 80% granular; moderated serosanguinous drainage noted on the dressing. MSK: Pain on palpating the periwound area. Muscle power around the knee joint couldn't be assessed due to pain and guarding. 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 Oliva Afebrile, absent leukocytosis R knee wound cleansed with sterile saline and dressed with maxorb and optifoam Wound culture - no growth Dr. Watson consulted; recs appreciated Dr. Baltazar consulted; recs appreciated Dr. Simeon on consult - recs appreciated Dr. Medrano consulted; recs appreciated Will continue to follow <Kristen Oliva - Last Filed: 07/12/18 14:10> Objective - Vital Signs/Intake and Output Vital Signs (last 24 hours): Temp Pulse Resp BP Pulse Ox 97.7 F 54 L 16 132/90 99 07/12/18 06:00 07/12/18 06:00 07/12/18 06:00 07/12/18 09:19 07/12/18 06:00 Intake and Output: 07/12/18 07/12/18 06:59 18:59 Intake Total 600 Output Total 600 Balance 0 - Medications Medications: Current Medications Acetaminophen (Tylenol 325mg Tab) 650 mg PO Q6H PRN PRN Reason: Pain, moderate (4-7) Last Admin: 07/10/18 23:49 Dose: 650 mg Alprazolam (Xanax) 0.25 mg PO DAILY [facility]; Protocol Stop: 07/14/18 10:01 Last Admin: 07/12/18 09:20 Dose: Not Given Apixaban (Eliquis) 2.5 mg PO Q12 [facility]; Protocol Last Admin: 07/12/18 09:19 Dose: 2.5 mg Atenolol (Tenormin) 12.5 mg PO BID [facility] Atorvastatin Calcium (Lipitor) 20 mg PO HS [facility] Last Admin: 07/11/18 23:03 Dose: 20 mg Cadexomer Iodine (Iodosorb) 1 gm TOP DAILY [facility] Calcium Carbonate (Caltrate) 600 mg PO DAILY [facility] Last Admin: 07/12/18 09:20 Dose: 600 mg Cholecalciferol (Vitamin D) 2,000 intlu PO DAILY [facility] Last Admin: 07/12/18 09:20 Dose: 2,000 intlu Digoxin (Digoxin) 0.125 mg PO 1400 [facility] Last Admin: 07/12/18 14:00 Dose: Not Given Docusate Sodium (Colace) 100 mg PO BID [facility] Last Admin: 07/12/18 09:20 Dose: 100 mg Furosemide (Lasix) 40 mg PO DAILY [facility] Last Admin: 07/12/18 09:19 Dose: 40 mg Meropenem (Merrem Iv 1 Gm Premix) 1 gm in 50 mls @ 100 mls/hr IVPB Q8 [facility]; Protocol Stop: 07/14/18 14:01 Last Admin: 07/12/18 13:13 Dose: 100 mls/hr Daptomycin 472 mg/ Sodium (Chloride) 100 mls @ 200 mls/hr IV Q24H [facility]; Protocol Stop: 07/14/18 14:01 Last Admin: 07/12/18 14:00 Dose: 200 mls/hr Mirtazapine (Remeron) 15 mg PO HS [facility] Last Admin: 07/11/18 23:03 Dose: 15 mg Pantoprazole Sodium (Protonix Ec Tab) 40 mg PO DAILY [facility] Last Admin: 07/12/18 09:19 Dose: 40 mg - Labs Labs: 07/12/18 06:00 07/12/18 06:00 PT 18.9 SECONDS (9.4-12.5) H 07/06/18 13:50 INR 1.63 07/06/18 13:50 APTT 33.5 Seconds (25.1-36.5) 07/06/18 13:50 Attending/Attestation - Attestation I have personally seen and examined this patient.: Yes I have fully participated in the care of the patient.: Yes I have reviewed all pertinent clinical information, including history, physical exam and plan: Yes Notes (Text): 07/12/18 14:08 I spoke at length with Samantha Narvaez' PA. Pt is going to a subacute in May to be near her daughter; she will need continued wound care and orders were given to use iodosorb and a foam dressing [id number]; pt needs to be seen weekly for wound care; Samantha stated that Dr Narvaez would like pt to be seen by him one week and by myself the next;
--- NOTE | 2018-07-11 09:44 | PN ---
DATE: 07/11/2018 REASON FOR CONSULTATION AND FOLLOWUP: Cardiac evaluation. Admitted with leg pain, found to be bradycardic, elevated digoxin level. This note is addition to dictated by the nurse practitioner, Peggy Cheney. Admitting digoxin level was elevated, on held. Now digoxin level is 1.1. Restarted again low dose of 0.1. Patient is stable, on anticoagulation. History of chronic atrial fibrillation, history of coronary artery disease, history of right knee replacement, infected, removal of pacer device. RECOMMENDATION: Continue atenolol at low dose 12.5 twice a day. Continue Eliquis. Continue digoxin. Supplement electrolytes as needed. Today, potassium 3.4, we will supplement. Magnesium is 1.5, needs to be supplemented. Also, patient is still reporting calorie malnutrition 2.1, which was present on admission is moderate. Increase nutritional support. We will follow with you. We will discontinue telemetry. Discharge planning. Continue low dose of atenolol 12.5 mg twice daily and digoxin low dose at 0.125 daily. We will follow with you. for providing us opportunity in taking care of the patient Imelda Green. Gabbi eMdrano MD
[2018-07-11] MEDS: Pantoprazole 40 mg EC Tab PO SCH (10:35)
[2018-07-11] MEDS: Cholecalciferol 1,000 INTLU TAB PO SCH (10:36)
--- NOTE | 2018-07-11 11:05 | CP.PCM.PN ---
<Keerthi Clemons - Last Filed: 07/11/18 14:42> Subjective - Date & Time of Evaluation Date of Evaluation: 07/11/18 Time of Evaluation: 11:03 - Subjective Subjective: ID progress note PGY-[address] Mi Pt states pain is gone at rest but movement may triggered it. Denies f/c, cp, sob, n/v/d/c, dysuira Objective - Vital Signs/Intake and Output Vital Signs (last 24 hours): Temp Pulse Resp BP Pulse Ox 98.1 F 60 18 110/50 L 98 07/11/18 06:00 07/11/18 10:36 07/11/18 06:00 07/11/18 10:36 07/10/18 06:00 Intake and Output: 07/11/18 07/11/18 06:59 18:59 Intake Total 340 Output Total 950 Balance -610 - Medications Medications: Current Medications Acetaminophen (Tylenol 325mg Tab) 650 mg PO Q6H PRN PRN Reason: Pain, moderate (4-7) Last Admin: 07/10/18 23:49 Dose: 650 mg Alprazolam (Xanax) 0.25 mg PO DAILY [facility]; Protocol Stop: 07/14/18 10:01 Last Admin: 07/11/18 10:42 Dose: Not Given Apixaban (Eliquis) 2.5 mg PO Q12 [facility]; Protocol Last Admin: 07/11/18 10:35 Dose: 2.5 mg Atenolol (Tenormin) 12.5 mg PO BID [facility] Last Admin: 07/11/18 10:36 Dose: 12.5 mg Atorvastatin Calcium (Lipitor) 20 mg PO HS [facility] Last Admin: 07/10/18 21:27 Dose: 20 mg Calcium Carbonate (Caltrate) 600 mg PO DAILY [facility] Last Admin: 07/11/18 10:35 Dose: 600 mg Cholecalciferol (Vitamin D) 2,000 intlu PO DAILY [facility] Last Admin: 07/11/18 10:36 Dose: 2,000 intlu Digoxin (Digoxin) 0.125 mg PO 1400 [facility] Last Admin: 07/10/18 13:34 Dose: 0.125 mg Docusate Sodium (Colace) 100 mg PO BID [facility] Last Admin: 07/11/18 10:42 Dose: Not Given Furosemide (Lasix) 40 mg PO DAILY [facility] Last Admin: 07/11/18 10:36 Dose: 40 mg Meropenem (Merrem Iv 1 Gm Premix) 1 gm in 50 mls @ 100 mls/hr IVPB Q8 [facility]; Protocol Stop: 07/14/18 14:01 Last Admin: 07/11/18 05:14 Dose: 100 mls/hr Daptomycin 472 mg/ Sodium (Chloride) 100 mls @ 200 mls/hr IV Q24H [facility]; Protocol Stop: 07/14/18 14:01 Last Admin: 07/10/18 14:40 Dose: 200 mls/hr Mirtazapine (Remeron) 15 mg PO HS [facility] Last Admin: 07/10/18 21:27 Dose: 15 mg Pantoprazole Sodium (Protonix Ec Tab) 40 mg PO DAILY [facility] Last Admin: 07/11/18 10:35 Dose: 40 mg - Labs Labs: 07/11/18 06:00 07/11/18 06:00 PT 18.9 SECONDS (9.4-12.5) H 07/06/18 13:50 INR 1.63 07/06/18 13:50 APTT 33.5 Seconds (25.1-36.5) 07/06/18 13:50 - Constitutional Appears: No Acute Distress - Head Exam Head Exam: ATRAUMATIC, NORMAL INSPECTION, NORMOCEPHALIC - Eye Exam Eye Exam: EOMI, Normal appearance, PERRL, Scleral icterus Pupil Exam: NORMAL ACCOMODATION - ENT Exam ENT Exam: Mucous Membranes Moist - Neck Exam Additional comments: supple - Respiratory Exam Respiratory Exam: Clear to Ausculation Bilateral. absent: Rales, Rhonchi, Wheezes - Cardiovascular Exam Cardiovascular Exam: REGULAR RHYTHM, +S1, +S2. absent: Murmur - GI/Abdominal Exam GI & Abdominal Exam: Soft, Normal Bowel Sounds. absent: Guarding, Rigid, Tenderness - Extremities Exam Extremities Exam: Pedal Edema, Tenderness. 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 Mi <Mehrdad Mi S - Last Filed: 07/11/18 18:42> Objective - Vital Signs/Intake and Output Vital Signs (last 24 hours): Temp Pulse Resp BP Pulse Ox 98.4 F 86 19 125/67 98 07/11/18 18:00 07/11/18 18:00 07/11/18 18:00 07/11/18 18:00 07/10/18 06:00 Intake and Output: 07/11/18 07/11/18 06:59 18:59 Intake Total 340 Output Total 950 Balance -610 - Medications Medications: Current Medications Acetaminophen (Tylenol 325mg Tab) 650 mg PO Q6H PRN PRN Reason: Pain, moderate (4-7) Last Admin: 07/10/18 23:49 Dose: 650 mg Alprazolam (Xanax) 0.25 mg PO DAILY [facility]; Protocol Stop: 07/14/18 10:01 Last Admin: 07/11/18 10:42 Dose: Not Given Apixaban (Eliquis) 2.5 mg PO Q12 [facility]; Protocol Last Admin: 07/11/18 10:35 Dose: 2.5 mg Atenolol (Tenormin) 12.5 mg PO BID [facility] Last Admin: 07/11/18 17:28 Dose: 12.5 mg Atorvastatin Calcium (Lipitor) 20 mg PO HS [facility] Last Admin: 07/10/18 21:27 Dose: 20 mg Cadexomer Iodine (Iodosorb) 1 gm TOP DAILY [facility] Calcium Carbonate (Caltrate) 600 mg PO DAILY [facility] Last Admin: 07/11/18 10:35 Dose: 600 mg Cholecalciferol (Vitamin D) 2,000 intlu PO DAILY [facility] Last Admin: 07/11/18 10:36 Dose: 2,000 intlu Digoxin (Digoxin) 0.125 mg PO 1400 [facility] Last Admin: 07/11/18 14:31 Dose: 0.125 mg Docusate Sodium (Colace) 100 mg PO BID [facility] Last Admin: 07/11/18 17:28 Dose: Not Given Furosemide (Lasix) 40 mg PO DAILY [facility] Last Admin: 07/11/18 10:36 Dose: 40 mg Meropenem (Merrem Iv 1 Gm Premix) 1 gm in 50 mls @ 100 mls/hr IVPB Q8 [facility]; Protocol Stop: 07/14/18 14:01 Last Admin: 07/11/18 14:31 Dose: 100 mls/hr Daptomycin 472 mg/ Sodium (Chloride) 100 mls @ 200 mls/hr IV Q24H [facility]; Protocol Stop: 07/14/18 14:01 Last Admin: 07/11/18 16:17 Dose: 200 mls/hr Mirtazapine (Remeron) 15 mg PO HS [facility] Last Admin: 07/10/18 21:27 Dose: 15 mg Pantoprazole Sodium (Protonix Ec Tab) 40 mg PO DAILY [facility] Last Admin: 07/11/18 10:35 Dose: 40 mg - Labs Labs: 07/11/18 06:00 07/11/18 06:00 PT 18.9 SECONDS (9.4-12.5) H 07/06/18 13:50 INR 1.63 07/06/18 13:50 APTT 33.5 Seconds (25.1-36.5) 07/06/18 13:50 Assessment and Plan - Assessment and Plan (Free Text) Plan: Infectious diseases Attending Physician Attestation Patient seen and examined, discussed with manager of medical. I have reviewed the patient's history of present illness, past medical, social, personal and family histories, pertinent physical exam findings, course so far in this hospital admission, pertinent laboratory and imaging results. I agree with the above findings, assessment and plan. In addition, continue Daptomycin and Merrem for 4-6 weeks for this patient with probable right knee surgical site infection associated with previous prosthetic knee which was infected with VRE, S/P removal. Pseudomonas also previously grew from the wound. Will need weekly ESR, CRP, CBC, CMP, CPK levels while on antibiotics, to be followed by PMD as an outpatient. Will need better nutrition so her surgical wound will heal - patient has poor nutrition.
--- NOTE | 2018-07-11 11:16 | CP.PCM.PN ---
<Francisco Pacheco - Last Filed: 07/11/18 11:08> Subjective - Date & Time of Evaluation Date of Evaluation: 07/11/18 Time of Evaluation: 09:44 - Subjective Subjective: Francisco Pacheco [facility] Progress Note Patient seen and examined at bedside this morning. No acute events reported overnight. Denies CP, SOB, fevers, nausea, and vomiting. Offers no new complaints today. Will need 4 weeks of IV daptomycin and merrem. Objective - Vital Signs/Intake and Output Vital Signs (last 24 hours): Temp Pulse Resp BP Pulse Ox 98.1 F 60 18 110/50 L 98 07/11/18 06:00 07/11/18 10:36 07/11/18 06:00 07/11/18 10:36 07/10/18 06:00 Intake and Output: 07/11/18 07/11/18 06:59 18:59 Intake Total 340 Output Total 950 Balance -610 - Medications Medications: Current Medications Acetaminophen (Tylenol 325mg Tab) 650 mg PO Q6H PRN PRN Reason: Pain, moderate (4-7) Last Admin: 07/10/18 23:49 Dose: 650 mg Alprazolam (Xanax) 0.25 mg PO DAILY [facility]; Protocol Stop: 07/14/18 10:01 Last Admin: 07/11/18 10:42 Dose: Not Given Apixaban (Eliquis) 2.5 mg PO Q12 [facility]; Protocol Last Admin: 07/11/18 10:35 Dose: 2.5 mg Atenolol (Tenormin) 12.5 mg PO BID [facility] Last Admin: 07/11/18 10:36 Dose: 12.5 mg Atorvastatin Calcium (Lipitor) 20 mg PO HS [facility] Last Admin: 07/10/18 21:27 Dose: 20 mg Calcium Carbonate (Caltrate) 600 mg PO DAILY [facility] Last Admin: 07/11/18 10:35 Dose: 600 mg Cholecalciferol (Vitamin D) 2,000 intlu PO DAILY [facility] Last Admin: 07/11/18 10:36 Dose: 2,000 intlu Digoxin (Digoxin) 0.125 mg PO 1400 [facility] Last Admin: 07/10/18 13:34 Dose: 0.125 mg Docusate Sodium (Colace) 100 mg PO BID [facility] Last Admin: 07/11/18 10:42 Dose: Not Given Furosemide (Lasix) 40 mg PO DAILY [facility] Last Admin: 07/11/18 10:36 Dose: 40 mg Meropenem (Merrem Iv 1 Gm Premix) 1 gm in 50 mls @ 100 mls/hr IVPB Q8 [facility]; Protocol Stop: 07/14/18 14:01 Last Admin: 07/11/18 05:14 Dose: 100 mls/hr Daptomycin 472 mg/ Sodium (Chloride) 100 mls @ 200 mls/hr IV Q24H [facility]; Protocol Stop: 07/14/18 14:01 Last Admin: 07/10/18 14:40 Dose: 200 mls/hr Mirtazapine (Remeron) 15 mg PO HS [facility] Last Admin: 07/10/18 21:27 Dose: 15 mg Pantoprazole Sodium (Protonix Ec Tab) 40 mg PO DAILY [facility] Last Admin: 07/11/18 10:35 Dose: 40 mg - Labs Labs: 07/11/18 06:00 07/11/18 06:00 PT 18.9 SECONDS (9.4-12.5) H 07/06/18 13:50 INR 1.63 07/06/18 13:50 APTT 33.5 Seconds (25.1-36.5) 07/06/18 13:50 - Additional Findings Additional findings: - Constitutional Appears: Non-toxic, No Acute Distress - Head Exam Head Exam: ATRAUMATIC, NORMOCEPHALIC - Eye Exam Eye Exam: EOMI, Normal appearance, PERRL - ENT Exam ENT Exam: Mucous Membranes Moist - Respiratory Exam Respiratory Exam: Clear to Auscultation Bilateral, NORMAL BREATHING PATTERN. absent: Rales, Rhonchi, Wheezes - Cardiovascular Exam Cardiovascular Exam: REGULAR RHYTHM, +S1, +S2. absent: Gallop, Rubs, Systolic Murmur - GI/Abdominal Exam GI & Abdominal Exam: Normal Bowel Sounds, Soft. absent: Distended, Guarding, Organomegaly, Rigid, Tenderness - Extremities Exam Extremities exam: Positive for: normal capillary refill, normal inspection, tenderness to right knee, pedal pulses present B/L. Negative for: pedal edema - Neurological Exam Neurological exam: Alert, CN II-XII Intact, Oriented x3 - Skin Skin Exam: Dry, Intact, Normal Color, Warm. Right knee lateral ulcer measuring 4cm x 3cm, not actively bleeding/draining. Granulation tissue present. 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 Admitted for CHF exacerbation, bradycardia. Discharge planning. Plan: RLE ulcer -hx of right knee prosthesis, periprosthetic infection with VRE -afebrile, no WBC -ID on consult, recommend 4 weeks of IV daptomycin and merrem. Working with SW to get approval -IV daptpmycin and merrem, day 5 -blood cx no growth, wound cx shows no growth -ortho on consult, podiatry on consult -percocet, tylenol prn pain -Ext US negative for DVT B/L -hyperbaric oxygen Bradycardia - resolved -continue home digoxin, digoxin level WNL -EKG: HR 54, A-fib with slow ventricular response, demonstrating signs of digoxin toxicity -denies nausea/vomiting -vitals reviewed, HR 60-100 overnight -cardio on consult Low electrolytes -low K and low MG, repleted, f/u labs Elevated BNP -patient is asymptomatic, less likely CHF -Trop elevated at 0.06 x3 -BNP 7570 on admission, CK negative -CXR: small b/l pleural effusions -Strict I's/O's, daily weights -Lasix 40 PO daily -atenolol, 12.5mg BID Hx afib -continue eliquis 2.5mg BID Hx CAD -Trop 0.06 x 3 -continue lipitor Hx anxiety/mood disorder -continue home mirtazapine -Xanax daily PPX/Diet -eliquis, protonix -HHD Patient seen and case discussed with attending, Dr. Lemos <Alexandre Lemos - Last Filed: 07/11/18 17:36> Objective - Vital Signs/Intake and Output Vital Signs (last 24 hours): Temp Pulse Resp BP Pulse Ox 97.5 F L 52 L 14 112/44 L 98 07/11/18 12:00 07/11/18 12:00 07/11/18 12:00 07/11/18 12:00 07/10/18 06:00 Intake and Output: 07/11/18 07/11/18 06:59 18:59 Intake Total 340 Output Total 950 Balance -610 - Medications Medications: Current Medications Acetaminophen (Tylenol 325mg Tab) 650 mg PO Q6H PRN PRN Reason: Pain, moderate (4-7) Last Admin: 07/10/18 23:49 Dose: 650 mg Alprazolam (Xanax) 0.25 mg PO DAILY [facility]; Protocol Stop: 07/14/18 10:01 Last Admin: 07/11/18 10:42 Dose: Not Given Apixaban (Eliquis) 2.5 mg PO Q12 [facility]; Protocol Last Admin: 07/11/18 10:35 Dose: 2.5 mg Atenolol (Tenormin) 12.5 mg PO BID [facility] Last Admin: 07/11/18 17:28 Dose: 12.5 mg Atorvastatin Calcium (Lipitor) 20 mg PO HS [facility] Last Admin: 07/10/18 21:27 Dose: 20 mg Cadexomer Iodine (Iodosorb) 1 gm TOP DAILY [facility] Calcium Carbonate (Caltrate) 600 mg PO DAILY [facility] Last Admin: 07/11/18 10:35 Dose: 600 mg Cholecalciferol (Vitamin D) 2,000 intlu PO DAILY [facility] Last Admin: 07/11/18 10:36 Dose: 2,000 intlu Digoxin (Digoxin) 0.125 mg PO 1400 [facility] Last Admin: 07/11/18 14:31 Dose: 0.125 mg Docusate Sodium (Colace) 100 mg PO BID [facility] Last Admin: 07/11/18 17:28 Dose: Not Given Furosemide (Lasix) 40 mg PO DAILY [facility] Last Admin: 07/11/18 10:36 Dose: 40 mg Meropenem (Merrem Iv 1 Gm Premix) 1 gm in 50 mls @ 100 mls/hr IVPB Q8 [facility]; Protocol Stop: 07/14/18 14:01 Last Admin: 07/11/18 14:31 Dose: 100 mls/hr Daptomycin 472 mg/ Sodium (Chloride) 100 mls @ 200 mls/hr IV Q24H [facility]; Protocol Stop: 07/14/18 14:01 Last Admin: 07/11/18 16:17 Dose: 200 mls/hr Mirtazapine (Remeron) 15 mg PO HS [facility] Last Admin: 07/10/18 21:27 Dose: 15 mg Pantoprazole Sodium (Protonix Ec Tab) 40 mg PO DAILY [facility] Last Admin: 07/11/18 10:35 Dose: 40 mg - Labs Labs: 07/11/18 06:00 07/11/18 06:00 PT 18.9 SECONDS (9.4-12.5) H 07/06/18 13:50 INR 1.63 07/06/18 13:50 APTT 33.5 Seconds (25.1-36.5) 07/06/18 13:50 Attending/Attestation - Attestation I have personally seen and examined this patient.: Yes I have fully participated in the care of the patient.: Yes I have reviewed all pertinent clinical information, including history, physical exam and plan: Yes
--- NOTE | 2018-07-11 11:39 | CP.PCM.PN ---
Subjective - Date & Time of Evaluation Date of Evaluation: 07/11/18 Time of Evaluation: 11:19 - Subjective Subjective: Patient seen and examined. C/o pain in right leg. Knee immobilizer on. Afebrile WBC 5.9 Hgb 8.1 R knee: dressings changed. Still serous drainage from sinus track. Calf and thigh soft and non-tender. Grossly NVI distally Spoke with daughter yesterday, who her and the family requests her mother goes home with visiting nurse and home PT Patient will be on 4 weeks of Dapto and Meropenem per ID Spoke with Dr. Oliva, she is ok with patient going home and must have dressing changes M,W, F with iodosorb and covered with a foam dressing Patient needs to have weekly labs drawn including CRP and ESR levels and results sent to Dr. Bishop and Dr. Watson and Dr. Simeon's office Patient also needs to follow up weekly with either Dr. Oliva or Dr. Watson in the office to monitor wound Will follow with discharge planning Discussed Above with Dr. Watson, agrees with above. Objective - Vital Signs/Intake and Output Vital Signs (last 24 hours): Temp Pulse Resp BP Pulse Ox 98.1 F 60 18 110/50 L 98 07/11/18 06:00 07/11/18 10:36 07/11/18 06:00 07/11/18 10:36 07/10/18 06:00 Intake and Output: 07/11/18 07/11/18 06:59 18:59 Intake Total 340 Output Total 950 Balance -610 - Medications Medications: Current Medications Acetaminophen (Tylenol 325mg Tab) 650 mg PO Q6H PRN PRN Reason: Pain, moderate (4-7) Last Admin: 07/10/18 23:49 Dose: 650 mg Alprazolam (Xanax) 0.25 mg PO DAILY [facility]; Protocol Stop: 07/14/18 10:01 Last Admin: 07/11/18 10:42 Dose: Not Given Apixaban (Eliquis) 2.5 mg PO Q12 [facility]; Protocol Last Admin: 07/11/18 10:35 Dose: 2.5 mg Atenolol (Tenormin) 12.5 mg PO BID [facility] Last Admin: 07/11/18 10:36 Dose: 12.5 mg Atorvastatin Calcium (Lipitor) 20 mg PO HS [facility] Last Admin: 07/10/18 21:27 Dose: 20 mg Calcium Carbonate (Caltrate) 600 mg PO DAILY [facility] Last Admin: 07/11/18 10:35 Dose: 600 mg Cholecalciferol (Vitamin D) 2,000 intlu PO DAILY [facility] Last Admin: 07/11/18 10:36 Dose: 2,000 intlu Digoxin (Digoxin) 0.125 mg PO 1400 [facility] Last Admin: 07/10/18 13:34 Dose: 0.125 mg Docusate Sodium (Colace) 100 mg PO BID [facility] Last Admin: 07/11/18 10:42 Dose: Not Given Furosemide (Lasix) 40 mg PO DAILY [facility] Last Admin: 07/11/18 10:36 Dose: 40 mg Meropenem (Merrem Iv 1 Gm Premix) 1 gm in 50 mls @ 100 mls/hr IVPB Q8 [facility]; Protocol Stop: 07/14/18 14:01 Last Admin: 07/11/18 05:14 Dose: 100 mls/hr Daptomycin 472 mg/ Sodium (Chloride) 100 mls @ 200 mls/hr IV Q24H [facility]; Protocol Stop: 07/14/18 14:01 Last Admin: 07/10/18 14:40 Dose: 200 mls/hr Mirtazapine (Remeron) 15 mg PO HS [facility] Last Admin: 07/10/18 21:27 Dose: 15 mg Pantoprazole Sodium (Protonix Ec Tab) 40 mg PO DAILY [facility] Last Admin: 07/11/18 10:35 Dose: 40 mg - Labs Labs: 07/11/18 06:00 07/11/18 06:00 PT 18.9 SECONDS (9.4-12.5) H 07/06/18 13:50 INR 1.63 07/06/18 13:50 APTT 33.5 Seconds (25.1-36.5) 07/06/18 13:50
--- NOTE | 2018-07-11 13:35 | CP.PCM.APN ---
Subjective - Date & Time of Evaluation Date of Evaluation: 07/11/18 Time of Evaluation: 11:00 - Subjective Subjective: pt seen in bed , NAD , new PICC in place Review of Systems - Musculoskeletal Musculoskeletal: Muscle Weakness, Stiffness Additional comments: right knee discomfort in immobilizer Objective - Vital Signs/Intake and Output Vital Signs (last 24 hours): Temp Pulse Resp BP Pulse Ox 97.5 F L 52 L 14 112/44 L 98 07/11/18 12:00 07/11/18 12:00 07/11/18 12:00 07/11/18 12:00 07/10/18 06:00 Intake and Output: 07/11/18 07/11/18 06:59 18:59 Intake Total 340 Output Total 950 Balance -610 - Medications Medications: Current Medications Acetaminophen (Tylenol 325mg Tab) 650 mg PO Q6H PRN PRN Reason: Pain, moderate (4-7) Last Admin: 07/10/18 23:49 Dose: 650 mg Alprazolam (Xanax) 0.25 mg PO DAILY [facility]; Protocol Stop: 07/14/18 10:01 Last Admin: 07/11/18 10:42 Dose: Not Given Apixaban (Eliquis) 2.5 mg PO Q12 [facility]; Protocol Last Admin: 07/11/18 10:35 Dose: 2.5 mg Atenolol (Tenormin) 12.5 mg PO BID [facility] Last Admin: 07/11/18 10:36 Dose: 12.5 mg Atorvastatin Calcium (Lipitor) 20 mg PO HS [facility] Last Admin: 07/10/18 21:27 Dose: 20 mg Cadexomer Iodine (Iodosorb) 1 gm TOP DAILY [facility] Calcium Carbonate (Caltrate) 600 mg PO DAILY [facility] Last Admin: 07/11/18 10:35 Dose: 600 mg Cholecalciferol (Vitamin D) 2,000 intlu PO DAILY [facility] Last Admin: 07/11/18 10:36 Dose: 2,000 intlu Digoxin (Digoxin) 0.125 mg PO 1400 [facility] Last Admin: 07/10/18 13:34 Dose: 0.125 mg Docusate Sodium (Colace) 100 mg PO BID [facility] Last Admin: 07/11/18 10:42 Dose: Not Given Furosemide (Lasix) 40 mg PO DAILY [facility] Last Admin: 07/11/18 10:36 Dose: 40 mg Meropenem (Merrem Iv 1 Gm Premix) 1 gm in 50 mls @ 100 mls/hr IVPB Q8 [facility]; Protocol Stop: 07/14/18 14:01 Last Admin: 07/11/18 05:14 Dose: 100 mls/hr Daptomycin 472 mg/ Sodium (Chloride) 100 mls @ 200 mls/hr IV Q24H [facility]; Protocol Stop: 07/14/18 14:01 Last Admin: 07/10/18 14:40 Dose: 200 mls/hr Mirtazapine (Remeron) 15 mg PO HS [facility] Last Admin: 07/10/18 21:27 Dose: 15 mg Pantoprazole Sodium (Protonix Ec Tab) 40 mg PO DAILY [facility] Last Admin: 07/11/18 10:35 Dose: 40 mg - Labs Labs: 07/11/18 06:00 07/11/18 06:00 PT 18.9 SECONDS (9.4-12.5) H 07/06/18 13:50 INR 1.63 07/06/18 13:50 APTT 33.5 Seconds (25.1-36.5) 07/06/18 13:50 - Constitutional Appears: No Acute Distress - Eye Exam Eye Exam: Normal appearance - Extremities Exam Additional comments: right knee with occlusive dsg in immobilizer - Psychiatric Exam Psychiatric exam: Normal Affect, Normal Mood - Skin Skin Exam: Dry, Intact Assessment and Plan - Assessment and Plan (Free Text) Plan: 82 yr white female with pmh sig for htn, cad, 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 pt remains on iV antibiotics , spoke to ID who states that patient will need 4 to 6 weeks PICC line inserted yesterday pt with podiatry and vasc consults on board- recs noted per Ortho note, not a candidate for re-implantation at this point. IV antibiotic therapy spoke to ricardo and sathya regarding IV Dapto and IV Merrem needed for 4 to 6 additional weeks. per discussion with sw and cm - daughter wants to take pt home wrote rx for iv antibiotics needed and supplies needed for home per CM - bed cant be delivered until Saturday, will follow BPCI/TIC - BPCIA/TIC Educated pt/family on BPCIA/CIR/Med to Bed Programs: Yes Flyers given, including CMS Beneficiary letter: Yes Pt/family verbalized understanding & agreed to program: Yes
[2018-07-11] MEDS: Digoxin 125 mcg (0.125 mg) Tab PO SCH (14:31)
[2018-07-11] MEDS: DAPTOMYCIN IV SCH (16:17)
[2018-07-11] MEDS: SODIUM CHLORIDE 0.9% IV SCH (16:17)
[2018-07-12] MEDS: Meropenem IV 1 gm in NS 1 GM/50 ML BAG IVPB SCH ×2 (05:21→13:13)
[2018-07-12 07:10] LABS: BASO # 0.04 K/mm3 (0.0-2.0); BASO % 0.6 % (0.0-3.0); EOS # 0.7 (0.0-0.7); EOS % 10.8 % (1.5-5.0); GRAN # 3.54 (1.4-6.5); GRAN % 51.8 % (50.0-68.0); HEMOGLOBIN 8.5 g/dL (12.0-16.0); LYMPH # 1.9 (1.2-3.4); LYMPH % 27.1 % (22.0-35.0); MEAN CELL VOLUME 86.6 fl (80.0-105.0); MEAN CORPUSCULAR HEMOGLOBIN 27.9 pg (25.0-35.0); MEAN CORPUSCULAR HGB CONC 32.2 g/dl (31.0-37.0); MEAN PLATELET VOLUME 10.3 fl (7.0-11.0); MONO # 0.7 (0.1-0.6); MONO % 9.7 % (1.0-6.0); RBC 3.05 10^6/uL (3.5-6.1); RED CELL DISTRIBUTION WIDTH 17.4 % (11.5-14.5); WHITE BLOOD COUNT 6.8 10^3/uL (4.5-11.0)
[2018-07-12 07:15] LABS: ALB/GLOB RATIO 0.8 (1.1-1.8); ALBUMIN 2.1 g/dL (3.0-4.8); ALT/SGPT 24 U/L (7-56); AST/SGOT 25 U/L (14-36); BLOOD UREA NITROGEN 6 mg/dL (7-21); CALCIUM 7.8 mg/dL (8.4-10.5); GFR NON-AFRICAN AMERICAN > 60
--- NOTE | 2018-07-12 08:24 | CP.PCM.PN ---
<Nadiya Bonilla - Last Filed: 07/12/18 08:20> Subjective - Date & Time of Evaluation Date of Evaluation: 07/12/18 Time of Evaluation: 08:20 - Subjective Subjective: Podiatry Progress Note- Dr. Oliva/Tamera 82 y/o female seen and evaluated at bedside. Resting comfortably with right leg dressed with knee brace and elevated on pillows. States she is in a moderate amount of pain in her knee. Denies fever, nausea, vomiting, chills. Has no other acute complaints. Objective - Vital Signs/Intake and Output Vital Signs (last 24 hours): Temp Pulse Resp BP Pulse Ox 97.7 F 54 L 16 113/49 L 98 07/12/18 06:00 07/12/18 06:00 07/12/18 06:00 07/12/18 06:00 07/10/18 06:00 Intake and Output: 07/12/18 07/12/18 06:59 18:59 Intake Total 600 Output Total 600 Balance 0 - Medications Medications: Current Medications Acetaminophen (Tylenol 325mg Tab) 650 mg PO Q6H PRN PRN Reason: Pain, moderate (4-7) Last Admin: 07/10/18 23:49 Dose: 650 mg Alprazolam (Xanax) 0.25 mg PO DAILY [facility]; Protocol Stop: 07/14/18 10:01 Last Admin: 07/11/18 10:42 Dose: Not Given Apixaban (Eliquis) 2.5 mg PO Q12 [facility]; Protocol Last Admin: 07/11/18 23:03 Dose: 2.5 mg Atenolol (Tenormin) 12.5 mg PO BID [facility] Last Admin: 07/11/18 17:28 Dose: 12.5 mg Atorvastatin Calcium (Lipitor) 20 mg PO HS [facility] Last Admin: 07/11/18 23:03 Dose: 20 mg Cadexomer Iodine (Iodosorb) 1 gm TOP DAILY [facility] Calcium Carbonate (Caltrate) 600 mg PO DAILY [facility] Last Admin: 07/11/18 10:35 Dose: 600 mg Cholecalciferol (Vitamin D) 2,000 intlu PO DAILY [facility] Last Admin: 07/11/18 10:36 Dose: 2,000 intlu Digoxin (Digoxin) 0.125 mg PO 1400 [facility] Last Admin: 07/11/18 14:31 Dose: 0.125 mg Docusate Sodium (Colace) 100 mg PO BID [facility] Last Admin: 07/11/18 17:28 Dose: Not Given Furosemide (Lasix) 40 mg PO DAILY [facility] Last Admin: 07/11/18 10:36 Dose: 40 mg Meropenem (Merrem Iv 1 Gm Premix) 1 gm in 50 mls @ 100 mls/hr IVPB Q8 [facility]; Protocol Stop: 07/14/18 14:01 Last Admin: 07/12/18 05:21 Dose: 100 mls/hr Daptomycin 472 mg/ Sodium (Chloride) 100 mls @ 200 mls/hr IV Q24H [facility]; Protocol Stop: 07/14/18 14:01 Last Admin: 07/11/18 16:17 Dose: 200 mls/hr Mirtazapine (Remeron) 15 mg PO HS [facility] Last Admin: 07/11/18 23:03 Dose: 15 mg Pantoprazole Sodium (Protonix Ec Tab) 40 mg PO DAILY [facility] Last Admin: 07/11/18 10:35 Dose: 40 mg - Labs Labs: 07/12/18 06:00 07/12/18 06:00 PT 18.9 SECONDS (9.4-12.5) H 07/06/18 13:50 INR 1.63 07/06/18 13:50 APTT 33.5 Seconds (25.1-36.5) 07/06/18 13:50 - Constitutional Appears: Well, Non-toxic, No Acute Distress - Extremities Exam Additional comments: RLE focused exam: Vasc: DP/PT faintly palpable. Cap refill< 3 sec to all digits. Temp gradient warm to warm. minimal edema to right knee. Mild Periwound erythema noted. Neuro: Gross and protective sensations are intact. Derm: Open post-surgical wound to central aspect of right knee measures 3 cm x 3 cm x 0.3cm with additional smaller superficial wound to dorsolateral aspect of knee approx 1cm x 1 cm x 0.1cm. Wound bases are 20% fibrotic and 80% granular; mild-moderate serosanguinous drainage noted on the dressing. No active drainage or purulence, no malodor, no streaking cellulitis, no magdalena-wound erythema MSK: Mild-moderate on palpationthe periwound area. Muscle power around the knee joint unable to be assessed due to pain and guarding - Neurological Exam Neurological Exam: Alert, Awake, Oriented x3 - Psychiatric Exam Psychiatric exam: Normal Affect, Normal Mood Assessment and Plan - Assessment and Plan (Free Text) Assessment: 82 y/o female with locally infected knee wound s/p extrusion of prosthetic secondary to infection Plan: Patient seen and evaluated with Dr. Tamera Woo knee wound cleansed with sterile saline and dressed with maxorb and optifoam dressing Wound culture - no growth Dr. Watson on consult, recs appreciated Dr. Baltazar on consult; recs appreciated Dr. Simeon on consult - recs appreciated Dr. Medrano on consult; recs appreciated Will continue to follow and provide local wound care <Thai Philip - Last Filed: 07/13/18 20:25> Objective - Vital Signs/Intake and Output Vital Signs (last 24 hours): Temp Pulse Resp BP Pulse Ox 97.6 F 60 18 110/68 99 07/13/18 14:00 07/13/18 17:22 07/13/18 14:00 07/13/18 17:22 07/13/18 14:00 Intake and Output: 07/13/18 07/14/18 18:59 06:59 Intake Total 730 Output Total 400 Balance 330 - Medications Medications: Current Medications Acetaminophen (Tylenol 325mg Tab) 650 mg PO Q6H PRN PRN Reason: Pain, moderate (4-7) Last Admin: 07/10/18 23:49 Dose: 650 mg Alprazolam (Xanax) 0.25 mg PO DAILY [facility]; Protocol Stop: 07/14/18 10:01 Last Admin: 07/13/18 10:03 Dose: 0.25 mg Apixaban (Eliquis) 2.5 mg PO Q12 [facility]; Protocol Last Admin: 07/13/18 10:06 Dose: 2.5 mg Atenolol (Tenormin) 12.5 mg PO BID [facility] Last Admin: 07/13/18 17:22 Dose: 12.5 mg Atorvastatin Calcium (Lipitor) 20 mg PO HS [facility] Last Admin: 07/12/18 21:30 Dose: 20 mg Cadexomer Iodine (Iodosorb) 1 gm TOP DAILY [facility] Last Admin: 07/13/18 10:41 Dose: 1 gm Calcium Carbonate (Caltrate) 600 mg PO DAILY [facility] Last Admin: 07/13/18 10:06 Dose: 600 mg Cholecalciferol (Vitamin D) 2,000 intlu PO DAILY [facility] Last Admin: 07/13/18 10:06 Dose: 2,000 intlu Digoxin (Digoxin) 0.125 mg PO 1400 [facility] Last Admin: 07/13/18 14:19 Dose: Not Given Docusate Sodium (Colace) 100 mg PO BID [facility] Last Admin: 07/13/18 17:21 Dose: 100 mg Furosemide (Lasix) 40 mg PO DAILY [facility] Last Admin: 07/13/18 10:07 Dose: 40 mg Meropenem (Merrem Iv 1 Gm Premix) 1 gm in 50 mls @ 100 mls/hr IVPB Q8 [facility]; Protocol Stop: 07/21/18 22:18 Last Admin: 07/13/18 14:20 Dose: 100 mls/hr Daptomycin 410 mg/ Sodium (Chloride) 100 mls @ 200 mls/hr IV Q24H [facility]; Protocol Stop: 07/21/18 14:01 Last Admin: 07/13/18 14:21 Dose: 200 mls/hr Mirtazapine (Remeron) 15 mg PO HS [facility] Last Admin: 07/12/18 21:30 Dose: 15 mg Pantoprazole Sodium (Protonix Ec Tab) 40 mg PO DAILY [facility] Last Admin: 07/13/18 10:07 Dose: 40 mg - Labs Labs: 07/12/18 06:00 07/12/18 06:00 PT 18.9 SECONDS (9.4-12.5) H 07/06/18 13:50 INR 1.63 07/06/18 13:50 APTT 33.5 Seconds (25.1-36.5) 07/06/18 13:50 Attending/Attestation - Attestation I have personally seen and examined this patient.: Yes I have fully participated in the care of the patient.: Yes I have reviewed all pertinent clinical information, including history, physical exam and plan: Yes
[2018-07-12] MEDS: Pantoprazole 40 mg EC Tab PO SCH (09:19)
[2018-07-12] MEDS: Cholecalciferol 1,000 INTLU TAB PO SCH (09:20)
[2018-07-12] MEDS ORDERED: CADEXOMER IODINE 0.9% GEL 10G TOP SCH (10:00)
[2018-07-12] MEDS ORDERED: Potassium Chloride 20 mEq ER Tab PO STA (10:38)
--- NOTE | 2018-07-12 13:40 | CP.PCM.PN ---
<Jerel Reaves - Last Filed: 07/12/18 13:36> Subjective - Date & Time of Evaluation Date of Evaluation: 07/12/18 Time of Evaluation: 06:00 - Subjective Subjective: Patient seen and examined bedside. No acute issues overnight. Patient offers no complaints, denies fevers, chills. Objective - Vital Signs/Intake and Output Vital Signs (last 24 hours): Temp Pulse Resp BP Pulse Ox 97.7 F 54 L 16 132/90 99 07/12/18 06:00 07/12/18 06:00 07/12/18 06:00 07/12/18 09:19 07/12/18 06:00 Intake and Output: 07/12/18 07/12/18 06:59 18:59 Intake Total 600 Output Total 600 Balance 0 - Medications Medications: Current Medications Acetaminophen (Tylenol 325mg Tab) 650 mg PO Q6H PRN PRN Reason: Pain, moderate (4-7) Last Admin: 07/10/18 23:49 Dose: 650 mg Alprazolam (Xanax) 0.25 mg PO DAILY [facility]; Protocol Stop: 07/14/18 10:01 Last Admin: 07/12/18 09:20 Dose: Not Given Apixaban (Eliquis) 2.5 mg PO Q12 [facility]; Protocol Last Admin: 07/12/18 09:19 Dose: 2.5 mg Atenolol (Tenormin) 12.5 mg PO BID [facility] Atorvastatin Calcium (Lipitor) 20 mg PO HS [facility] Last Admin: 07/11/18 23:03 Dose: 20 mg Cadexomer Iodine (Iodosorb) 1 gm TOP DAILY [facility] Calcium Carbonate (Caltrate) 600 mg PO DAILY [facility] Last Admin: 07/12/18 09:20 Dose: 600 mg Cholecalciferol (Vitamin D) 2,000 intlu PO DAILY [facility] Last Admin: 07/12/18 09:20 Dose: 2,000 intlu Digoxin (Digoxin) 0.125 mg PO 1400 [facility] Last Admin: 07/11/18 14:31 Dose: 0.125 mg Docusate Sodium (Colace) 100 mg PO BID [facility] Last Admin: 07/12/18 09:20 Dose: 100 mg Furosemide (Lasix) 40 mg PO DAILY [facility] Last Admin: 07/12/18 09:19 Dose: 40 mg Meropenem (Merrem Iv 1 Gm Premix) 1 gm in 50 mls @ 100 mls/hr IVPB Q8 [facility]; P rotocol Stop: 07/14/18 14:01 Last Admin: 07/12/18 13:13 Dose: 100 mls/hr Daptomycin 472 mg/ Sodium (Chloride) 100 mls @ 200 mls/hr IV Q24H [facility]; Protocol Stop: 07/14/18 14:01 Last Admin: 07/11/18 16:17 Dose: 200 mls/hr Mirtazapine (Remeron) 15 mg PO HS [facility] Last Admin: 07/11/18 23:03 Dose: 15 mg Pantoprazole Sodium (Protonix Ec Tab) 40 mg PO DAILY [facility] Last Admin: 07/12/18 09:19 Dose: 40 mg - Labs Labs: 07/12/18 06:00 07/12/18 06:00 PT 18.9 SECONDS (9.4-12.5) H 07/06/18 13:50 INR 1.63 07/06/18 13:50 APTT 33.5 Seconds (25.1-36.5) 07/06/18 13:50 - Constitutional Appears: Non-toxic, No Acute Distress - Head Exam Head Exam: ATRAUMATIC, NORMAL INSPECTION, NORMOCEPHALIC - Eye Exam Eye Exam: Normal appearance - ENT Exam ENT Exam: Mucous Membranes Moist - Respiratory Exam Respiratory Exam: Clear to Ausculation Bilateral - Cardiovascular Exam Cardiovascular Exam: REGULAR RHYTHM - GI/Abdominal Exam GI & Abdominal Exam: Soft. absent: Tenderness - Neurological Exam Neurological Exam: Alert, Awake, Oriented x3 - Skin Additional comments: Right knee lateral ulcer measuring 4cm x 3cm, not actively bleeding/draining. Granulation tissue present. 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 Admitted for CHF exacerbation, bradycardia. Waiting for bed to be delivered home for Discharge. Plan: RLE ulcer -hx of right knee prosthesis, periprosthetic infection with VRE -afebrile, no WBC -ID on consult, recommend 4 weeks of IV daptomycin and merrem. -IV daptomycin and merrem, day 6 -blood cx no growth, wound cx shows no growth -ortho on consult, podiatry on consult -percocet, tylenol prn pain -Ext US negative for DVT B/L -hyperbaric oxygen Bradycardia -continue home digoxin, digoxin level WNL -EKG: HR 54, A-fib with slow ventricular response, demonstrating signs of digoxin toxicity -denies nausea/vomiting -vitals reviewed, HR 60-100 overnight -cardio on consult Elevated BNP -patient is asymptomatic, less likely CHF -Trop elevated at 0.06 x3 -BNP 7570 on admission, CK negative -CXR: small b/l pleural effusions -Strict I's/O's, daily weights -Lasix 40 PO daily -atenolol, 12.5mg BID Hx afib -continue eliquis 2.5mg BID Hx CAD -Trop 0.06 x 3 -continue lipitor Hx anxiety/mood disorder -continue home mirtazapine -Xanax daily PPX/Diet -eliquis, protonix -HHD Patient seen and case discussed with attending, Dr. Lemos <Alexandre Lemos - Last Filed: 07/12/18 14:34> Objective - Vital Signs/Intake and Output Vital Signs (last 24 hours): Temp Pulse Resp BP Pulse Ox 97.7 F 54 L 16 132/90 99 07/12/18 06:00 07/12/18 06:00 07/12/18 06:00 07/12/18 09:19 07/12/18 06:00 Intake and Output: 07/12/18 07/12/18 06:59 18:59 Intake Total 600 Output Total 600 Balance 0 - Medications Medications: Current Medications Acetaminophen (Tylenol 325mg Tab) 650 mg PO Q6H PRN PRN Reason: Pain, moderate (4-7) Last Admin: 07/10/18 23:49 Dose: 650 mg Alprazolam (Xanax) 0.25 mg PO DAILY [facility]; Protocol Stop: 07/14/18 10:01 Last Admin: 07/12/18 09:20 Dose: Not Given Apixaban (Eliquis) 2.5 mg PO Q12 [facility]; Protocol Last Admin: 07/12/18 09:19 Dose: 2.5 mg Atenolol (Tenormin) 12.5 mg PO BID [facility] Atorvastatin Calcium (Lipitor) 20 mg PO HS [facility] Last Admin: 07/11/18 23:03 Dose: 20 mg Cadexomer Iodine (Iodosorb) 1 gm TOP DAILY [facility] Calcium Carbonate (Caltrate) 600 mg PO DAILY [facility] Last Admin: 07/12/18 09:20 Dose: 600 mg Cholecalciferol (Vitamin D) 2,000 intlu PO DAILY [facility] Last Admin: 07/12/18 09:20 Dose: 2,000 intlu Digoxin (Digoxin) 0.125 mg PO 1400 [facility] Last Admin: 07/12/18 14:00 Dose: Not Given Docusate Sodium (Colace) 100 mg PO BID [facility] Last Admin: 07/12/18 09:20 Dose: 100 mg Furosemide (Lasix) 40 mg PO DAILY [facility] Last Admin: 07/12/18 09:19 Dose: 40 mg Meropenem (Merrem Iv 1 Gm Premix) 1 gm in 50 mls @ 100 mls/hr IVPB Q8 [facility]; Protocol Stop: 07/14/18 14:01 Last Admin: 07/12/18 13:13 Dose: 100 mls/hr Daptomycin 472 mg/ Sodium (Chloride) 100 mls @ 200 mls/hr IV Q24H [facility]; Protocol Stop: 07/14/18 14:01 Last Admin: 07/12/18 14:00 Dose: 200 mls/hr Mirtazapine (Remeron) 15 mg PO HS [facility] Last Admin: 07/11/18 23:03 Dose: 15 mg Pantoprazole Sodium (Protonix Ec Tab) 40 mg PO DAILY [facility] Last Admin: 07/12/18 09:19 Dose: 40 mg - Labs Labs: 07/12/18 06:00 07/12/18 06:00 PT 18.9 SECONDS (9.4-12.5) H 07/06/18 13:50 INR 1.63 07/06/18 13:50 APTT 33.5 Seconds (25.1-36.5) 07/06/18 13:50 Attending/Attestation - Attestation I have personally seen and examined this patient.: Yes I have fully participated in the care of the patient.: Yes I have reviewed all pertinent clinical information, including history, physical exam and plan: Yes
[2018-07-12] MEDS: DAPTOMYCIN IV SCH (14:00)
[2018-07-12] MEDS: Digoxin 125 mcg (0.125 mg) Tab PO SCH (14:00)
[2018-07-12] MEDS: SODIUM CHLORIDE 0.9% IV SCH (14:00)
[2018-07-12] MEDS ORDERED: DAPTOmycin 500 mg Inj (Cubicin) IV SCH (22:30)
--- NOTE | 2018-07-13 00:09 | PN ---
DATE: 07/12/2018 SUBJECTIVE: The patient is bed in no acute distress, nontoxic. PHYSICAL EXAMINATION VITAL SIGNS: Temperature is 98, blood pressure 114/50, and respiratory rate 18. HEENT: Unremarkable. NECK: Supple. LUNGS: Decreased breath sounds. HEART: Normal S1 and S2. ABDOMEN: Soft. LABORATORY DATA: Reveals white count 6.8, hemoglobin of 8. BUN of 6, creatinine of 0.5. Microbiology reveals blood cultures negative. Right knee cultures are negative. ASSESSMENT AND PLAN: An 82-year-old female with chronically infected prosthetic right knee status post of right knee prosthesis now has antibiotics spacer contain, currently on daptomycin and meropenem day #6, will need 4 to 6 weeks of antibiotics and we will need to repeat CBC, SMA-18, sed rate, C-reactive protein and CPK. Review of the orders. Review of the daptomycin and meropenem has been dropped by pharmacy. We will restart antibiotics again. We will follow with you. Review of Dr. Watson's noted is noted and we will follow with you. Dominick Simeon MD
[2018-07-13] MEDS: Meropenem IV 1 gm in NS 1 GM/50 ML BAG IVPB SCH ×4 (04:55→21:49)
--- NOTE | 2018-07-13 08:05 | CP.PCM.PN ---
<Jerel Reaves - Last Filed: 07/13/18 12:58> Subjective - Date & Time of Evaluation Date of Evaluation: 07/13/18 Time of Evaluation: 06:00 - Subjective Subjective: Patient seen and evaluated bedside. No acute issues overnight. Patient denies any complaints today. Objective - Vital Signs/Intake and Output Vital Signs (last 24 hours): Temp Pulse Resp BP Pulse Ox 97.5 F L 59 L 18 104/49 L 98 07/12/18 22:00 07/12/18 22:00 07/12/18 22:00 07/12/18 22:00 07/12/18 22:00 Intake and Output: 07/13/18 07/13/18 06:59 18:59 Intake Total 120 Balance 120 - Medications Medications: Current Medications Acetaminophen (Tylenol 325mg Tab) 650 mg PO Q6H PRN PRN Reason: Pain, moderate (4-7) Last Admin: 07/10/18 23:49 Dose: 650 mg Alprazolam (Xanax) 0.25 mg PO DAILY [facility]; Protocol Stop: 07/14/18 10:01 Last Admin: 07/12/18 09:20 Dose: Not Given Apixaban (Eliquis) 2.5 mg PO Q12 [facility]; Protocol Last Admin: 07/12/18 21:30 Dose: 2.5 mg Atenolol (Tenormin) 12.5 mg PO BID [facility] Last Admin: 07/12/18 17:37 Dose: 12.5 mg Atorvastatin Calcium (Lipitor) 20 mg PO HS [facility] Last Admin: 07/12/18 21:30 Dose: 20 mg Cadexomer Iodine (Iodosorb) 1 gm TOP DAILY [facility] Calcium Carbonate (Caltrate) 600 mg PO DAILY [facility] Last Admin: 07/12/18 09:20 Dose: 600 mg Cholecalciferol (Vitamin D) 2,000 intlu PO DAILY [facility] Last Admin: 07/12/18 09:20 Dose: 2,000 intlu Digoxin (Digoxin) 0.125 mg PO 1400 [facility] Last Admin: 07/12/18 14:00 Dose: Not Given Docusate Sodium (Colace) 100 mg PO BID [facility] Last Admin: 07/12/18 17:37 Dose: 100 mg Furosemide (Lasix) 40 mg PO DAILY [facility] Last Admin: 07/12/18 09:19 Dose: 40 mg Meropenem (Merrem Iv 1 Gm Premix) 1 gm in 50 mls @ 100 mls/hr IVPB Q8 [facility]; Protocol Stop: 07/21/18 22:18 Last Admin: 07/13/18 04:55 Dose: Not Given Daptomycin 410 mg/ Sodium (Chloride) 100 mls @ 200 mls/hr IV Q24H [facility]; Protocol Stop: 07/21/18 14:01 Mirtazapine (Remeron) 15 mg PO HS [facility] Last Admin: 07/12/18 21:30 Dose: 15 mg Pantoprazole Sodium (Protonix Ec Tab) 40 mg PO DAILY [facility] Last Admin: 07/12/18 09:19 Dose: 40 mg - Labs Labs: 07/12/18 06:00 07/12/18 06:00 PT 18.9 SECONDS (9.4-12.5) H 07/06/18 13:50 INR 1.63 07/06/18 13:50 APTT 33.5 Seconds (25.1-36.5) 07/06/18 13:50 - Constitutional Appears: Non-toxic, No Acute Distress - Head Exam Head Exam: ATRAUMATIC, NORMAL INSPECTION, NORMOCEPHALIC - Eye Exam Eye Exam: Normal appearance - ENT Exam ENT Exam: Mucous Membranes Moist - Respiratory Exam Respiratory Exam: Clear to Ausculation Bilateral, NORMAL BREATHING PATTERN - Cardiovascular Exam Cardiovascular Exam: REGULAR RHYTHM - GI/Abdominal Exam GI & Abdominal Exam: Soft - Neurological Exam Neurological Exam: Alert, Awake, Oriented x3 - Skin Additional comments: Right knee lateral ulcer measuring 4cm x 3cm, not actively bleeding/draining. Granulation tissue present. 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 Admitted for CHF exacerbation, bradycardia. Waiting for bed to be delivered home for Discharge. Plan: RLE ulcer -hx of right knee prosthesis, periprosthetic infection with VRE -afebrile, no WBC -ID on consult, recommend 4 weeks of IV daptomycin and merrem. -IV daptomycin and merrem, day 6 -blood cx no growth, wound cx shows no growth -ortho on consult, podiatry on consult -percocet, tylenol prn pain -Ext US negative for DVT B/L -hyperbaric oxygen Bradycardia-resolved -continue home digoxin, digoxin level WNL -denies nausea/vomiting -cardio on consult Elevated BNP -patient is asymptomatic, less likely CHF -Trop elevated at 0.06 x3 -BNP 7570 on admission, CK negative -CXR: small b/l pleural effusions -Strict I's/O's, daily weights -Lasix 40 PO daily -atenolol, 12.5mg BID Hx afib -continue eliquis 2.5mg BID Hx CAD -Trop 0.06 x 3 -continue lipitor Hx anxiety/mood disorder -continue home mirtazapine -Xanax daily PPX/Diet -eliquis, protonix -HHD <Gabbi Weiss - Last Filed: 07/13/18 16:45> Objective - Vital Signs/Intake and Output Vital Signs (last 24 hours): Temp Pulse Resp BP Pulse Ox 97.6 F 54 L 18 107/49 L 99 07/13/18 14:00 07/13/18 14:00 07/13/18 14:00 07/13/18 14:00 07/13/18 14:00 Intake and Output: 07/13/18 07/13/18 06:59 18:59 Intake Total 120 Balance 120 - Medications Medications: Current Medications Acetaminophen (Tylenol 325mg Tab) 650 mg PO Q6H PRN PRN Reason: Pain, moderate (4-7) Last Admin: 07/10/18 23:49 Dose: 650 mg Alprazolam (Xanax) 0.25 mg PO DAILY [facility]; Protocol Stop: 07/14/18 10:01 Last Admin: 07/13/18 10:03 Dose: 0.25 mg Apixaban (Eliquis) 2.5 mg PO Q12 [facility]; Protocol Last Admin: 07/13/18 10:06 Dose: 2.5 mg Atenolol (Tenormin) 12.5 mg PO BID [facility] Last Admin: 07/13/18 10:04 Dose: 12.5 mg Atorvastatin Calcium (Lipitor) 20 mg PO HS [facility] Last Admin: 07/12/18 21:30 Dose: 20 mg Cadexomer Iodine (Iodosorb) 1 gm TOP DAILY [facility] Last Admin: 07/13/18 10:41 Dose: 1 gm Calcium Carbonate (Caltrate) 600 mg PO DAILY [facility] Last Admin: 07/13/18 10:06 Dose: 600 mg Cholecalciferol (Vitamin D) 2,000 intlu PO DAILY [facility] Last Admin: 07/13/18 10:06 Dose: 2,000 intlu Digoxin (Digoxin) 0.125 mg PO 1400 [facility] Last Admin: 07/13/18 14:19 Dose: Not Given Docusate Sodium (Colace) 100 mg PO BID [facility] Last Admin: 07/13/18 10:07 Dose: 100 mg Furosemide (Lasix) 40 mg PO DAILY [facility] Last Admin: 07/13/18 10:07 Dose: 40 mg Meropenem (Merrem Iv 1 Gm Premix) 1 gm in 50 mls @ 100 mls/hr IVPB Q8 [facility]; Protocol Stop: 07/21/18 22:18 Last Admin: 07/13/18 14:20 Dose: 100 mls/hr Daptomycin 410 mg/ Sodium (Chloride) 100 mls @ 200 mls/hr IV Q24H [facility]; Protocol Stop: 07/21/18 14:01 Last Admin: 07/13/18 14:21 Dose: 200 mls/hr Mirtazapine (Remeron) 15 mg PO HS [facility] Last Admin: 07/12/18 21:30 Dose: 15 mg Pantoprazole Sodium (Protonix Ec Tab) 40 mg PO DAILY [facility] Last Admin: 07/13/18 10:07 Dose: 40 mg - Labs Labs: 07/12/18 06:00 07/12/18 06:00 PT 18.9 SECONDS (9.4-12.5) H 07/06/18 13:50 INR 1.63 07/06/18 13:50 APTT 33.5 Seconds (25.1-36.5) 07/06/18 13:50 Attending/Attestation - Attestation I have personally seen and examined this patient.: Yes I have fully participated in the care of the patient.: Yes I have reviewed all pertinent clinical information, including history, physical exam and plan: Yes Notes (Text): 07/13/18 16:41 Medical record note made by the resident after discussion with my direction and input after the patient was personally seen and examined by me. I have reviewed the chart and agree that the record accurately reflects by personal performance of the history, physical exam, data review, and medical decision-making, in the course for the patient. I have also personally directed the plan of care. 82 year old female with past medical history of CAD, hypertension, afib on eliquis, and history of right knee replacement with history of periprosthetic infection s/p antibiotics who presented from [place] with complaint of nausea, vomiting and lower extremity pain/swelling. Found to have elevated digoxin level, elevated pbnp, bradycardia and small bilateral pleural effusions on CXR. Currently digoxin and atenolol are hold. Bradycardia is resolved.Patient has H/O of right knee prosthesis, periprosthetic infection with VRE -ID on consult, recommend 4 weeks of IV daptomycin and merrem. -IV daptomycin and merrem, day 6 -blood cx no growth, wound cx shows no growth. Patient lung sounds are clear, there is no sign of overt CHF. AF, rate is controlled with Atenolol, on anticoagulation with Apixiban. Patient is awaiting hospital bed at home prior to discharge.
[2018-07-13] MEDS: Cholecalciferol 1,000 INTLU TAB PO SCH (10:06)
[2018-07-13] MEDS: Pantoprazole 40 mg EC Tab PO SCH (10:07)
--- NOTE | 2018-07-13 11:23 | CP.PCM.PN ---
Subjective - Date & Time of Evaluation Date of Evaluation: 07/13/18 Time of Evaluation: 11:23 - Subjective Subjective: Podiatry Progress Note- Dr. Oliva/Tamera 82 y/o female seen and evaluated at bedside this morning, sleeping at time of visit. Resting comfortably with right leg dressed with knee brace and elevated on pillows. Admits to mild-moderate pain in the right knee. Denies fever, nausea, vomiting, chills. Has no other acute complaints. Objective - Vital Signs/Intake and Output Vital Signs (last 24 hours): Temp Pulse Resp BP Pulse Ox 97.6 F 60 18 111/57 L 97 07/13/18 06:00 07/13/18 10:04 07/13/18 06:00 07/13/18 10:07 07/13/18 06:00 Intake and Output: 07/13/18 07/13/18 06:59 18:59 Intake Total 120 Balance 120 - Medications Medications: Current Medications Acetaminophen (Tylenol 325mg Tab) 650 mg PO Q6H PRN PRN Reason: Pain, moderate (4-7) Last Admin: 07/10/18 23:49 Dose: 650 mg Alprazolam (Xanax) 0.25 mg PO DAILY [facility]; Protocol Stop: 07/14/18 10:01 Last Admin: 07/13/18 10:03 Dose: 0.25 mg Apixaban (Eliquis) 2.5 mg PO Q12 [facility]; Protocol Last Admin: 07/13/18 10:06 Dose: 2.5 mg Atenolol (Tenormin) 12.5 mg PO BID [facility] Last Admin: 07/13/18 10:04 Dose: 12.5 mg Atorvastatin Calcium (Lipitor) 20 mg PO HS [facility] Last Admin: 07/12/18 21:30 Dose: 20 mg Cadexomer Iodine (Iodosorb) 1 gm TOP DAILY [facility] Last Admin: 07/13/18 10:41 Dose: 1 gm Calcium Carbonate (Caltrate) 600 mg PO DAILY [facility] Last Admin: 07/13/18 10:06 Dose: 600 mg Cholecalciferol (Vitamin D) 2,000 intlu PO DAILY [facility] Last Admin: 07/13/18 10:06 Dose: 2,000 intlu Digoxin (Digoxin) 0.125 mg PO 1400 [facility] Last Admin: 07/12/18 14:00 Dose: Not Given Docusate Sodium (Colace) 100 mg PO BID [facility] Last Admin: 07/13/18 10:07 Dose: 100 mg Furosemide (Lasix) 40 mg PO DAILY [facility] Last Admin: 07/13/18 10:07 Dose: 40 mg Meropenem (Merrem Iv 1 Gm Premix) 1 gm in 50 mls @ 100 mls/hr IVPB Q8 [facility]; Protocol Stop: 07/21/18 22:18 Last Admin: 07/13/18 04:55 Dose: Not Given Daptomycin 410 mg/ Sodium (Chloride) 100 mls @ 200 mls/hr IV Q24H [facility]; Protocol Stop: 07/21/18 14:01 Mirtazapine (Remeron) 15 mg PO HS [facility] Last Admin: 07/12/18 21:30 Dose: 15 mg Pantoprazole Sodium (Protonix Ec Tab) 40 mg PO DAILY [facility] Last Admin: 07/13/18 10:07 Dose: 40 mg - Labs Labs: 07/12/18 06:00 07/12/18 06:00 PT 18.9 SECONDS (9.4-12.5) H 07/06/18 13:50 INR 1.63 07/06/18 13:50 APTT 33.5 Seconds (25.1-36.5) 07/06/18 13:50 - Constitutional Appears: Well, Non-toxic, No Acute Distress - Extremities Exam Additional comments: RLE focused exam: Vasc: DP/PT faintly palpable. Cap refill< 3 sec to all digits. Temp gradient warm to warm. minimal edema to right knee. Mild Periwound erythema noted. Neuro: Gross and protective sensations are intact. Derm: Open post-surgical wound to central aspect of right knee measures 3 cm x 3 cm x 0.3cm with additional smaller superficial wound to dorsolateral aspect of knee approx 1cm x 1 cm x 0.1cm. Wound bases are 20% fibrotic and 80% granular; mild-moderate serosanguinous drainage noted on the dressing. No active drainage or purulence, no malodor, no streaking cellulitis, no magdalena-wound erythema MSK: Mild-moderate on palpation of the periwound area. Muscle power around the knee joint unable to be assessed due to pain and guarding - Neurological Exam Neurological Exam: Alert, Awake, Oriented x3 - Psychiatric Exam Psychiatric exam: Normal Affect, Normal Mood Assessment and Plan - Assessment and Plan (Free Text) Assessment: 82 y/o female with locally infected knee wound s/p extrusion of prosthetic secondary to infection Plan: Patient seen and evaluated at bedside Discussed plan with Dr. Hazel Woo knee wound cleansed with sterile saline and dressed with maxorb and optifoam dressing Wound culture - no growth Dr. Watson on consult, recs appreciated Dr. Baltazar on consult; recs appreciated Dr. Simeon on consult - recs appreciated Dr. Medrano on consult; recs appreciated Will continue to follow and provide local wound care
[2018-07-13] MEDS: Digoxin 125 mcg (0.125 mg) Tab PO SCH (14:19)
[2018-07-14] MEDS: Meropenem IV 1 gm in NS 1 GM/50 ML BAG IVPB SCH ×3 (05:24→21:32)
[2018-07-14 06:51] LABS: BASO # 0.05 K/mm3 (0.0-2.0); BASO % 0.7 % (0.0-3.0); EOS # 0.6 (0.0-0.7); EOS % 7.8 % (1.5-5.0); GRAN # 4.02 (1.4-6.5); GRAN % 57.3 % (50.0-68.0); HEMOGLOBIN 8.3 g/dL (12.0-16.0); LYMPH # 1.7 (1.2-3.4); LYMPH % 23.8 % (22.0-35.0); MEAN CELL VOLUME 86.6 fl (80.0-105.0); MEAN CORPUSCULAR HEMOGLOBIN 27.8 pg (25.0-35.0); MEAN PLATELET VOLUME 10.6 fl (7.0-11.0); MONO # 0.7 (0.1-0.6); MONO % 10.4 % (1.0-6.0); RBC 2.99 10^6/uL (3.5-6.1); RED CELL DISTRIBUTION WIDTH 17.4 % (11.5-14.5)
--- NOTE | 2018-07-14 06:53 | CP.PCM.PN ---
Subjective - Date & Time of Evaluation Date of Evaluation: 07/14/18 Time of Evaluation: 06:50 - Subjective Subjective: No distress,awake, alert, unable to sleep last night Reason for consultation and follow up: Cardiac evaluation of bradycardia, histor y of atrial fibrillation , on Digoxin, elevated digoxin level on admission. Seen and examined by me and Dr. Medrano Objective - Vital Signs/Intake and Output Vital Signs (last 24 hours): Temp Pulse Resp BP Pulse Ox 97.5 F L 71 18 100/54 L 99 07/13/18 22:00 07/13/18 22:00 07/13/18 22:00 07/13/18 22:00 07/13/18 22:00 Intake and Output: 07/13/18 07/14/18 18:59 06:59 Intake Total 730 Output Total 550 Balance 180 - Medications Medications: Current Medications Acetaminophen (Tylenol 325mg Tab) 650 mg PO Q6H PRN PRN Reason: Pain, moderate (4-7) Last Admin: 07/10/18 23:49 Dose: 650 mg Alprazolam (Xanax) 0.25 mg PO DAILY [facility]; Protocol Stop: 07/14/18 10:01 Last Admin: 07/13/18 10:03 Dose: 0.25 mg Apixaban (Eliquis) 2.5 mg PO Q12 [facility]; Protocol Last Admin: 07/13/18 21:49 Dose: 2.5 mg Atenolol (Tenormin) 12.5 mg PO BID [facility] Last Admin: 07/13/18 17:22 Dose: 12.5 mg Atorvastatin Calcium (Lipitor) 20 mg PO HS [facility] Last Admin: 07/13/18 21:49 Dose: 20 mg Cadexomer Iodine (Iodosorb) 1 gm TOP DAILY [facility] Last Admin: 07/13/18 10:41 Dose: 1 gm Calcium Carbonate (Caltrate) 600 mg PO DAILY [facility] Last Admin: 07/13/18 10:06 Dose: 600 mg Cholecalciferol (Vitamin D) 2,000 intlu PO DAILY [facility] Last Admin: 07/13/18 10:06 Dose: 2,000 intlu Digoxin (Digoxin) 0.125 mg PO 1400 [facility] Last Admin: 07/13/18 14:19 Dose: Not Given Docusate Sodium (Colace) 100 mg PO BID [facility] Last Admin: 07/13/18 17:21 Dose: 100 mg Furosemide (Lasix) 40 mg PO DAILY [facility] Last Admin: 07/13/18 10:07 Dose: 40 mg Meropenem (Merrem Iv 1 Gm Premix) 1 gm in 50 mls @ 100 mls/hr IVPB Q8 [facility]; Protocol Stop: 07/21/18 22:18 Last Admin: 07/14/18 05:24 Dose: 100 mls/hr Daptomycin 410 mg/ Sodium (Chloride) 100 mls @ 200 mls/hr IV Q24H [facility]; Protocol Stop: 07/21/18 14:01 Last Admin: 07/13/18 14:21 Dose: 200 mls/hr Mirtazapine (Remeron) 15 mg PO HS [facility] Last Admin: 07/14/18 06:51 Dose: Not Given Pantoprazole Sodium (Protonix Ec Tab) 40 mg PO DAILY [facility] Last Admin: 07/13/18 10:07 Dose: 40 mg - Labs Labs: 07/12/18 06:00 07/12/18 06:00 PT 18.9 SECONDS (9.4-12.5) H 07/06/18 13:50 INR 1.63 07/06/18 13:50 APTT 33.5 Seconds (25.1-36.5) 07/06/18 13:50 - Constitutional Appears: Non-toxic, No Acute Distress - Head Exam Head Exam: NORMAL INSPECTION, NORMOCEPHALIC - Eye Exam Eye Exam: Normal appearance Pupil Exam: NORMAL ACCOMODATION - ENT Exam ENT Exam: Mucous Membranes Moist - Respiratory Exam Respiratory Exam: Decreased Breath Sounds, Clear to Ausculation Bilateral, NORMAL BREATHING PATTERN - Cardiovascular Exam Cardiovascular Exam: +S1, +S2 - GI/Abdominal Exam GI & Abdominal Exam: Soft, Normal Bowel Sounds - Extremities Exam Additional comments: right leg immobilizer - Neurological Exam Neurological Exam: Alert, Awake - Psychiatric Exam Psychiatric exam: Normal Affect, Normal Mood - Skin Skin Exam: Dry, Normal Color, Warm Assessment and Plan - Assessment and Plan (Free Text) Assessment: A 82 year old female who was admitted to the ER due to leg pain and vomiting. History of hypertension, coronary artery disease,post PTCA 1999, PPM, post infected and removal, chronic atrial fibrillation on Coumadin, osteoarthritis, recent right knee replacement with history of periprosthetic infection. Admitted for generalized weakness and vomiting. On admission bradycardia, elevated digoxin level, digoxin toxicity. DNR/DNI. Ortho on consult for knee. Not a surgical candidate at this time for removal of hardware. ID on consult. IV antibiotics for 4-6 weeks, PICC catheter inserted. Digoxin level stabilized. Restarted low dose Digoxin. Discharge planning. Family wanted to bring her home instead of [facility]. Plan: Cardiac status stable No distress, Heart rate stable Blood pressure controlled On Eliquis 2.5 mg daily,Lipitor 20 mg daily, Digoxin 0.125 mg daily, Lasix 40 mg daily, Continue IV antibiotics as ordered by ID Needed 4-6 weeks of Antibiotics per ID PICC inserted Continue current medications Continue current treatment Nutritional support Discharge planning Will follow up Plan and treatment discussed with Dr. Medrano
[2018-07-14 07:30] LABS: ALB/GLOB RATIO 0.7 (1.1-1.8); ALBUMIN 2.2 g/dL (3.0-4.8); ALT/SGPT 28 U/L (7-56); AST/SGOT 25 U/L (14-36); BLOOD UREA NITROGEN 8 mg/dL (7-21); CALCIUM 7.8 mg/dL (8.4-10.5); GFR NON-AFRICAN AMERICAN > 60
[2018-07-14] MEDS ORDERED: Potassium Chloride 20 mEq ER Tab PO STA (07:51)
--- NOTE | 2018-07-14 07:57 | CP.PCM.PN ---
<Keerthi Clemons - Last Filed: 07/14/18 11:17> Subjective - Date & Time of Evaluation Date of Evaluation: 07/14/18 Time of Evaluation: 10:16 - Subjective Subjective: ID Progress Note PGY-[address] burns Pt states R leg pain much improved. Now, the pain is only positional. Denies f/c, العلي, cp, sob, n/v/d/c, dysuria Objective - Vital Signs/Intake and Output Vital Signs (last 24 hours): Temp Pulse Resp BP Pulse Ox 97.5 F L 71 18 100/54 L 99 07/13/18 22:00 07/13/18 22:00 07/13/18 22:00 07/13/18 22:00 07/13/18 22:00 Intake and Output: 07/14/18 07/14/18 06:59 18:59 Intake Total 730 Output Total 550 Balance 180 - Medications Medications: Current Medications Acetaminophen (Tylenol 325mg Tab) 650 mg PO Q6H PRN PRN Reason: Pain, moderate (4-7) Last Admin: 07/10/18 23:49 Dose: 650 mg Alprazolam (Xanax) 0.25 mg PO DAILY [facility]; Protocol Stop: 07/14/18 10:01 Last Admin: 07/13/18 10:03 Dose: 0.25 mg Apixaban (Eliquis) 2.5 mg PO Q12 [facility]; Protocol Last Admin: 07/13/18 21:49 Dose: 2.5 mg Atenolol (Tenormin) 12.5 mg PO BID [facility] Last Admin: 07/13/18 17:22 Dose: 12.5 mg Atorvastatin Calcium (Lipitor) 20 mg PO HS [facility] Last Admin: 07/13/18 21:49 Dose: 20 mg Cadexomer Iodine (Iodosorb) 1 gm TOP DAILY [facility] Last Admin: 07/13/18 10:41 Dose: 1 gm Calcium Carbonate (Caltrate) 600 mg PO DAILY [facility] Last Admin: 07/13/18 10:06 Dose: 600 mg Cholecalciferol (Vitamin D) 2,000 intlu PO DAILY [facility] Last Admin: 07/13/18 10:06 Dose: 2,000 intlu Digoxin (Digoxin) 0.125 mg PO 1400 [facility] Last Admin: 07/13/18 14:19 Dose: Not Given Docusate Sodium (Colace) 100 mg PO BID [facility] Last Admin: 07/13/18 17:21 Dose: 100 mg Furosemide (Lasix) 40 mg PO DAILY [facility] Last Admin: 07/13/18 10:07 Dose: 40 mg Meropenem (Merrem Iv 1 Gm Premix) 1 gm in 50 mls @ 100 mls/hr IVPB Q8 [facility]; Protocol Stop: 07/21/18 22:18 Last Admin: 07/14/18 05:24 Dose: 100 mls/hr Daptomycin 410 mg/ Sodium (Chloride) 100 mls @ 200 mls/hr IV Q24H [facility]; Protocol Stop: 07/21/18 14:01 Last Admin: 07/13/18 14:21 Dose: 200 mls/hr Potassium Chloride (Potassium Chloride 10 Meq/100 Ml) 10 meq in 100 mls @ 50 mls/hr IVPB Q2H [facility] Stop: 07/14/18 11:59 Mirtazapine (Remeron) 15 mg PO HS [facility] Last Admin: 07/14/18 06:51 Dose: Not Given Pantoprazole Sodium (Protonix Ec Tab) 40 mg PO DAILY [facility] Last Admin: 07/13/18 10:07 Dose: 40 mg Potassium Chloride (Klor-Con 10) 40 meq PO Q4 [facility] Stop: 07/14/18 16:01 - Labs Labs: 07/14/18 05:20 07/14/18 05:20 PT 18.9 SECONDS (9.4-12.5) H 07/06/18 13:50 INR 1.63 07/06/18 13:50 APTT 33.5 Seconds (25.1-36.5) 07/06/18 13:50 - Constitutional Appears: No Acute Distress - Head Exam Head Exam: ATRAUMATIC, NORMAL INSPECTION, NORMOCEPHALIC - Eye Exam Eye Exam: EOMI, Normal appearance, PERRL. absent: Scleral icterus Pupil Exam: NORMAL ACCOMODATION - ENT Exam ENT Exam: Mucous Membranes Moist - Neck Exam Additional comments: supple - Respiratory Exam Respiratory Exam: Clear to Ausculation Bilateral. absent: Rales, Rhonchi, Wheezes - Cardiovascular Exam Cardiovascular Exam: REGULAR RHYTHM, +S1, +S2 - GI/Abdominal Exam GI & Abdominal Exam: Soft, Normal Bowel Sounds. 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 D/C picc line outpatient after completion of the antibiotics - follow on ESR, CRP, CPK tomorrow Imaging/lab - Normal DENNIS at rest - wound cx: neg - bCx: neg x 5d - CRP 37.9 - ESR 10 s/r/d/w Dr Burns <Mehrdad Burns - Last Filed: 07/14/18 16:55> Objective - Vital Signs/Intake and Output Vital Signs (last 24 hours): Temp Pulse Resp BP Pulse Ox 98.3 F 63 18 103/46 L 96 07/14/18 06:00 07/14/18 14:00 07/14/18 06:00 07/14/18 14:00 07/14/18 14:00 Intake and Output: 07/14/18 07/14/18 06:59 18:59 Intake Total 730 Output Total 550 Balance 180 - Medications Medications: Current Medications Acetaminophen (Tylenol 325mg Tab) 650 mg PO Q6H PRN PRN Reason: Pain, moderate (4-7) Last Admin: 07/10/18 23:49 Dose: 650 mg Apixaban (Eliquis) 2.5 mg PO Q12 [facility]; Protocol Last Admin: 07/14/18 09:34 Dose: 2.5 mg Atenolol (Tenormin) 12.5 mg PO BID [facility] Last Admin: 07/14/18 09:41 Dose: 12.5 mg Atorvastatin Calcium (Lipitor) 20 mg PO HS [facility] Last Admin: 07/13/18 21:49 Dose: 20 mg Cadexomer Iodine (Iodosorb) 0 gm TOP DAILY [facility] Calcium Carbonate (Caltrate) 600 mg PO DAILY [facility] Last Admin: 07/14/18 09:33 Dose: 600 mg Cholecalciferol (Vitamin D) 2,000 intlu PO DAILY [facility] Last Admin: 07/14/18 09:34 Dose: 2,000 intlu Digoxin (Digoxin) 0.125 mg PO 1400 [facility] Last Admin: 07/14/18 14:59 Dose: 0.125 mg Docusate Sodium (Colace) 100 mg PO BID [facility] Last Admin: 07/14/18 09:39 Dose: Not Given Furosemide (Lasix) 40 mg PO DAILY [facility] Last Admin: 07/14/18 09:34 Dose: 40 mg Meropenem (Merrem Iv 1 Gm Premix) 1 gm in 50 mls @ 100 mls/hr IVPB Q8 [facility]; Protocol Stop: 07/21/18 22:18 Last Admin: 07/14/18 14:33 Dose: 100 mls/hr Daptomycin 410 mg/ Sodium (Chloride) 100 mls @ 200 mls/hr IV Q24H [facility]; Protocol Stop: 07/21/18 14:01 Last Admin: 07/14/18 14:36 Dose: 200 mls/hr Mirtazapine (Remeron) 15 mg PO HS [facility] Last Admin: 07/14/18 06:51 Dose: Not Given Pantoprazole Sodium (Protonix Ec Tab) 40 mg PO DAILY [facility] Last Admin: 07/14/18 09:34 Dose: 40 mg - Labs Labs: 07/14/18 05:20 07/14/18 13:35 PT 18.9 SECONDS (9.4-12.5) H 07/06/18 13:50 INR 1.63 07/06/18 13:50 APTT 33.5 Seconds (25.1-36.5) 07/06/18 13:50 Assessment and Plan - Assessment and Plan (Free Text) Plan: Infectious diseases Attending Physician Attestation Patient seen and examined, discussed with medical records administrator. I have reviewed the patient's history of present illness, past medical, social, personal and family histories, pertinent physical exam findings, course so far in this hospital admission, pertinent laboratory and imaging results. I agree with the above findings, assessment and plan. In addition, continue Daptomycin and Merrem for 4-6 weeks for this patient with probable right knee surgical site infection associated with previous prosthetic knee which was infected with VRE, S/P removal. Pseudomonas also previously grew from the wound. Will need weekly ESR, CRP, CBC, CMP, CPK levels while on antibiotics, to be followed by PMD as an outpatient. Will need better nutrition so her surgical wound will heal - patient has poor nutrition. Discussed this with Dr. Wesis today and Dr. Oliva.
[2018-07-14] MEDS ORDERED: Potassium Chloride 40 mEq/30 ml LIQ UD PO ONE (08:14)
[2018-07-14] MEDS ORDERED: Potassium Chloride 20 mEq ER Tab PO ONE (08:34)
--- NOTE | 2018-07-14 09:15 | PN ---
DATE: 07/13/2018 SUBJECTIVE: The patient is seen earlier. No fevers, no chills, doing well. PHYSICAL EXAMINATION: VITAL SIGNS: Temperature is 97, blood pressure is 111/57, and respiratory rate of 18. HEENT: Unremarkable. NECK: Supple. LUNGS: Lungs have decreased breath sounds. HEART: Normal S1 and S2. ABDOMEN: Soft and nontender. LABORATORY DATA: Reveals a white count of 6.8, hemoglobin of 8, platelets are 223, BUN of 6, creatinine of 0.5. Toxicology is noted. Blood cultures are negative. The knee culture is negative. MEDICATIONS: Review of orders revealed the patient to be on daptomycin and meropenem. ASSESSMENT AND PLAN: An 82-year-old female with chronically infected prosthetic knee infection, status post prosthesis, now has an antibiotic spacer containing spacer, on daptomycin and meropenem day #7, will need 4-6 weeks of daptomycin and meropenem. Recommend CBC, SMA-18, sed rate, C-reactive protein, and CPK once we Dominick Simeon MD
[2018-07-14] MEDS: Cholecalciferol 1,000 INTLU TAB PO SCH (09:34)
[2018-07-14] MEDS: Pantoprazole 40 mg EC Tab PO SCH (09:34)
--- NOTE | 2018-07-14 13:19 | CP.PCM.PN ---
<Francisco Pacheco - Last Filed: 07/14/18 13:15> Subjective - Date & Time of Evaluation Date of Evaluation: 07/14/18 Time of Evaluation: 10:33 - Subjective Subjective: Francisco Pacheco PGY1 Hospital Progress Note Patient seen and examined at bedside this morning. No acute events reported overnight. Denies any complaints at this time. Potassium low this AM, repleted and will follow up. Objective - Vital Signs/Intake and Output Vital Signs (last 24 hours): Temp Pulse Resp BP Pulse Ox 98.3 F 65 18 110/7 L 97 07/14/18 06:00 07/14/18 09:41 07/14/18 06:00 07/14/18 09:34 07/14/18 06:00 Intake and Output: 07/14/18 07/14/18 06:59 18:59 Intake Total 730 Output Total 550 Balance 180 - Medications Medications: Current Medications Acetaminophen (Tylenol 325mg Tab) 650 mg PO Q6H PRN PRN Reason: Pain, moderate (4-7) Last Admin: 07/10/18 23:49 Dose: 650 mg Apixaban (Eliquis) 2.5 mg PO Q12 [facility]; Protocol Last Admin: 07/14/18 09:34 Dose: 2.5 mg Atenolol (Tenormin) 12.5 mg PO BID [facility] Last Admin: 07/14/18 09:41 Dose: 12.5 mg Atorvastatin Calcium (Lipitor) 20 mg PO HS [facility] Last Admin: 07/13/18 21:49 Dose: 20 mg Cadexomer Iodine (Iodosorb) 0 gm TOP DAILY [facility] Calcium Carbonate (Caltrate) 600 mg PO DAILY [facility] Last Admin: 07/14/18 09:33 Dose: 600 mg Cholecalciferol (Vitamin D) 2,000 intlu PO DAILY [facility] Last Admin: 07/14/18 09:34 Dose: 2,000 intlu Digoxin (Digoxin) 0.125 mg PO 1400 [facility] Docusate Sodium (Colace) 100 mg PO BID [facility] Last Admin: 07/14/18 09:39 Dose: Not Given Furosemide (Lasix) 40 mg PO DAILY [facility] Last Admin: 07/14/18 09:34 Dose: 40 mg Meropenem (Merrem Iv 1 Gm Premix) 1 gm in 50 mls @ 100 mls/hr IVPB Q8 [facility]; Protocol Stop: 07/21/18 22:18 Last Admin: 07/14/18 05:24 Dose: 100 mls/hr Daptomycin 410 mg/ Sodium (Chloride) 100 mls @ 200 mls/hr IV Q24H [facility]; Protocol Stop: 07/21/18 14:01 Last Admin: 07/13/18 14:21 Dose: 200 mls/hr Mirtazapine (Remeron) 15 mg PO HS [facility] Last Admin: 07/14/18 06:51 Dose: Not Given Pantoprazole Sodium (Protonix Ec Tab) 40 mg PO DAILY [facility] Last Admin: 07/14/18 09:34 Dose: 40 mg Potassium Chloride (Klor-Con 10) 40 meq PO Q4 [facility] Stop: 07/14/18 16:01 - Labs Labs: 07/14/18 05:20 07/14/18 09:15 PT 18.9 SECONDS (9.4-12.5) H 07/06/18 13:50 INR 1.63 07/06/18 13:50 APTT 33.5 Seconds (25.1-36.5) 07/06/18 13:50 - Additional Findings Additional findings: - Constitutional Appears: Non-toxic, No Acute Distress - Head Exam Head Exam: ATRAUMATIC, NORMAL INSPECTION, NORMOCEPHALIC - Eye Exam Eye Exam: Normal appearance - ENT Exam ENT Exam: Mucous Membranes Moist - Respiratory Exam Respiratory Exam: Clear to Ausculation Bilateral, NORMAL BREATHING PATTERN - Cardiovascular Exam Cardiovascular Exam: REGULAR RHYTHM - GI/Abdominal Exam GI & Abdominal Exam: Soft - Neurological Exam Neurological Exam: Alert, Awake, Oriented x3 - Skin Additional comments: Right knee lateral ulcer measuring 4cm x 3cm, not actively bleeding/draining. Granulation tissue present. 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 Admitted for CHF exacerbation, bradycardia. Waiting for bed to be delivered home for Discharge. Plan: RLE ulcer -hx of right knee prosthesis, periprosthetic infection with VRE -afebrile, no WBC -ID on consult, recommend 4 weeks of IV daptomycin and merrem. -IV daptomycin and merrem, day 8 -previous cultures grew pseudomonas -blood cx no growth for 5 days, wound cx shows no growth -ortho on consult, podiatry on consult -percocet, tylenol prn pain -Ext US negative for DVT B/L -hyperbaric oxygen Hypokalemia -repleted, will follow up and monitor Bradycardia-resolved -continue home digoxin -denies nausea/vomiting -cardio on consult Elevated BNP -patient is asymptomatic, less likely CHF -Trop elevated at 0.06 x3 -BNP 7570 on admission, CK negative -CXR: small b/l pleural effusions -Strict I's/O's, daily weights -Lasix 40 PO daily -atenolol, 12.5mg BID Hx afib -continue eliquis 2.5mg BID Hx CAD -Trop 0.06 x 3 -continue lipitor Hx anxiety/mood disorder -continue home mirtazapine -Xanax daily PPX/Diet -eliquis, protonix -HHD Patient seen and case discussed with attending, Dr. Weiss <Gabbi Weiss - Last Filed: 07/14/18 16:52> Objective - Vital Signs/Intake and Output Vital Signs (last 24 hours): Temp Pulse Resp BP Pulse Ox 98.3 F 63 18 103/46 L 96 07/14/18 06:00 07/14/18 14:00 07/14/18 06:00 07/14/18 14:00 07/14/18 14:00 Intake and Output: 07/14/18 07/14/18 06:59 18:59 Intake Total 730 Output Total 550 Balance 180 - Medications Medications: Current Medications Acetaminophen (Tylenol 325mg Tab) 650 mg PO Q6H PRN PRN Reason: Pain, moderate (4-7) Last Admin: 07/10/18 23:49 Dose: 650 mg Apixaban (Eliquis) 2.5 mg PO Q12 [facility]; Protocol Last Admin: 07/14/18 09:34 Dose: 2.5 mg Atenolol (Tenormin) 12.5 mg PO BID [facility] Last Admin: 07/14/18 09:41 Dose: 12.5 mg Atorvastatin Calcium (Lipitor) 20 mg PO HS [facility] Last Admin: 07/13/18 21:49 Dose: 20 mg Cadexomer Iodine (Iodosorb) 0 gm TOP DAILY [facility] Calcium Carbonate (Caltrate) 600 mg PO DAILY [facility] Last Admin: 07/14/18 09:33 Dose: 600 mg Cholecalciferol (Vitamin D) 2,000 intlu PO DAILY [facility] Last Admin: 07/14/18 09:34 Dose: 2,000 intlu Digoxin (Digoxin) 0.125 mg PO 1400 [facility] Last Admin: 07/14/18 14:59 Dose: 0.125 mg Docusate Sodium (Colace) 100 mg PO BID [facility] Last Admin: 07/14/18 09:39 Dose: Not Given Furosemide (Lasix) 40 mg PO DAILY [facility] Last Admin: 07/14/18 09:34 Dose: 40 mg Meropenem (Merrem Iv 1 Gm Premix) 1 gm in 50 mls @ 100 mls/hr IVPB Q8 [facility]; Protocol Stop: 07/21/18 22:18 Last Admin: 07/14/18 14:33 Dose: 100 mls/hr Daptomycin 410 mg/ Sodium (Chloride) 100 mls @ 200 mls/hr IV Q24H [facility]; Protocol Stop: 07/21/18 14:01 Last Admin: 07/14/18 14:36 Dose: 200 mls/hr Mirtazapine (Remeron) 15 mg PO HS [facility] Last Admin: 07/14/18 06:51 Dose: Not Given Pantoprazole Sodium (Protonix Ec Tab) 40 mg PO DAILY [facility] Last Admin: 07/14/18 09:34 Dose: 40 mg - Labs Labs: 07/14/18 05:20 07/14/18 13:35 PT 18.9 SECONDS (9.4-12.5) H 07/06/18 13:50 INR 1.63 07/06/18 13:50 APTT 33.5 Seconds (25.1-36.5) 07/06/18 13:50 Attending/Attestation - Attestation I have personally seen and examined this patient.: Yes I have fully participated in the care of the patient.: Yes I have reviewed all pertinent clinical information, including history, physical exam and plan: Yes Notes (Text): 07/14/18 16:50 Medical record note made by the resident after discussion with my direction and input after the patient was personally seen and examined by me. I have reviewed the chart and agree that the record accurately reflects by personal performance of the history, physical exam, data review, and medical decision-making, in the course for the patient. I have also personally directed the plan of care. 82 year old female with past medical history of CAD, hypertension, afib on eliquis, and history of right knee replacement with history of periprosthetic infection s/p antibiotics who presented from [place] with complaint of nausea, vomiting and lower extremity pain/swelling. Found to have elevated digoxin level, elevated pbnp, bradycardia and small bilateral pleural effusions on CXR. Currently digoxin and atenolol are hold. Bradycardia is resolved.Patient has H/O of right knee prosthesis, periprosthetic infection with VRE Periprosthetic infection -ID on consult, recommend 4 weeks of IV daptomycin and merrem. -IV daptomycin and merrem, day 7 -blood cx no growth, wound cx shows no growth. Patient will need weekly CBC,CMP ,CRP and ESR while on IV antibiotics. Patient lung sounds are clear, there is no sign of overt CHF. AF, rate is controlled with Atenolol, Digoxin on anticoagulation with Apixiban. Patient is awaiting hospital bed at home prior to discharge.
[2018-07-14] MEDS ORDERED: Digoxin 125 mcg (0.125 mg) Tab PO SCH (14:00)
[2018-07-14] MEDS: Potassium Chloride 10 mEq ER Tab PO SCH ×3 (14:33→20:51)
[2018-07-14 15:10] VITALS: PULSE 64
[2018-07-14] MEDS: CADEXOMER IODINE 0.9% GEL 10G TOP SCH (17:00)
--- NOTE | 2018-07-14 19:16 | PN ---
DATE: 07/14/2018 REASON FOR CONSULTATION: Followup, cardiac evaluation, bradycardia, history of atrial fibrillation, on digoxin, elevated digoxin level on admission. SUBJECTIVE: The patient denies any chest pain, shortness of breath or any palpitation. She feels a lot better. Digoxin dose was converted and decreased to the patient is hemodynamically stable. This note is an addition to the note dictated by the nurse practitioner, Peggy Cheney. PERTINENT LABORATORY DATA: WBC 7, hemoglobin , hematocrit 25.9, platelet count 228. Chemistries show sodium 133, potassium 2.1, repeat potassium 3.1. Total protein 5.1, albumin 2.2, albumin-globulin ratio 0.7. IMPRESSION: Severe hypokalemia, chronic atrial fibrillation, coronary artery disease; on anticoagulation, Eliquis. RECOMMENDATIONS: The patient is on supplemental potassium. Continue atenolol. Discussed with Dr. Weiss's team regarding long-term digoxin. Since the patient has been on digoxin for many years and on admission digoxin was elevated, we will hold for a couple of days and restart at 0.125. We will repeat the digoxin tomorrow and continue anticoagulation with Eliquis, aggressively supplement potassium. We will follow with you. Possible discharge planning. We will repeat the digoxin level in the morning. Thank you, Dr. Weiss, for providing us the opportunity in taking care of the patient, Norma Segura. Gabbi Medrano MD
[2018-07-14 22:08] VITALS: O2SAT 98
[2018-07-15] MEDS: Meropenem IV 1 gm in NS 1 GM/50 ML BAG IVPB SCH (05:07)
--- NOTE | 2018-07-15 07:01 | CP.PCM.PN ---
Subjective - Date & Time of Evaluation Date of Evaluation: 07/15/18 Time of Evaluation: 06:55 - Subjective Subjective: awake, alert, feels okay, no distress Reason for consultation and follow up: Cardiac evaluation of bradycardia, history of atrial fibrillation , on Digoxin, elevated digoxin level on admission. Seen and examined by me and Objective - Vital Signs/Intake and Output Vital Signs (last 24 hours): Temp Pulse Resp BP Pulse Ox 98.8 F 71 18 109/59 L 98 07/14/18 22:07 07/14/18 22:07 07/14/18 22:07 07/14/18 22:07 07/14/18 22:07 Intake and Output: 07/15/18 07/15/18 06:59 18:59 Intake Total 120 Output Total 400 Balance -280 - Medications Medications: Current Medications Acetaminophen (Tylenol 325mg Tab) 650 mg PO Q6H PRN PRN Reason: Pain, moderate (4-7) Last Admin: 07/10/18 23:49 Dose: 650 mg Apixaban (Eliquis) 2.5 mg PO Q12 [facility]; Protocol Last Admin: 07/14/18 22:28 Dose: 2.5 mg Atenolol (Tenormin) 12.5 mg PO BID [facility] Last Admin: 07/14/18 17:34 Dose: 12.5 mg Atorvastatin Calcium (Lipitor) 20 mg PO HS [facility] Last Admin: 07/14/18 22:28 Dose: 20 mg Cadexomer Iodine (Iodosorb) 0 gm TOP DAILY [facility] Last Admin: 07/14/18 17:00 Dose: Not Given Calcium Carbonate (Caltrate) 600 mg PO DAILY [facility] Last Admin: 07/14/18 09:33 Dose: 600 mg Cholecalciferol (Vitamin D) 2,000 intlu PO DAILY [facility] Last Admin: 07/14/18 09:34 Dose: 2,000 intlu Digoxin (Digoxin) 0.125 mg PO 1400 [facility] Last Admin: 07/14/18 14:59 Dose: 0.125 mg Docusate Sodium (Colace) 100 mg PO BID [facility] Last Admin: 07/14/18 17:34 Dose: 100 mg Furosemide (Lasix) 40 mg PO DAILY [facility] Last Admin: 07/14/18 09:34 Dose: 40 mg Meropenem (Merrem Iv 1 Gm Premix) 1 gm in 50 mls @ 100 mls/hr IVPB Q8 [facility]; Protocol Stop: 07/21/18 22:18 Last Admin: 07/15/18 05:07 Dose: 100 mls/hr Daptomycin 410 mg/ Sodium (Chloride) 100 mls @ 200 mls/hr IV Q24H [facility]; Protocol Stop: 07/21/18 14:01 Last Admin: 07/14/18 14:36 Dose: 200 mls/hr Mirtazapine (Remeron) 15 mg PO HS [facility] Last Admin: 07/14/18 22:28 Dose: 15 mg Pantoprazole Sodium (Protonix Ec Tab) 40 mg PO DAILY [facility] Last Admin: 07/14/18 09:34 Dose: 40 mg - Labs Labs: 07/14/18 05:20 07/14/18 13:35 PT 18.9 SECONDS (9.4-12.5) H 07/06/18 13:50 INR 1.63 07/06/18 13:50 APTT 33.5 Seconds (25.1-36.5) 07/06/18 13:50 - Constitutional Appears: Non-toxic, No Acute Distress - Head Exam Head Exam: NORMAL INSPECTION, NORMOCEPHALIC - Eye Exam Eye Exam: Normal appearance Pupil Exam: NORMAL ACCOMODATION - ENT Exam ENT Exam: Mucous Membranes Moist, Normal Exam - Respiratory Exam Respiratory Exam: Decreased Breath Sounds, Clear to Ausculation Bilateral, NORMAL BREATHING PATTERN - Cardiovascular Exam Cardiovascular Exam: +S1, +S2 - GI/Abdominal Exam GI & Abdominal Exam: Soft, Normal Bowel Sounds - Extremities Exam Additional comments: right leg immobilizer elevated with pillow - Neurological Exam Neurological Exam: Alert, Awake, Oriented x3 - Psychiatric Exam Psychiatric exam: Normal Affect, Normal Mood - Skin Skin Exam: Dry, Normal Color, Warm Assessment and Plan - Assessment and Plan (Free Text) Assessment: A 82 year old female who was admitted to the ER due to leg pain and vomiting. History of hypertension, coronary artery disease,post PTCA 1999, PPM, post infected and removal, chronic atrial fibrillation on Coumadin, osteoarthritis, recent right knee replacement with history of periprosthetic infection. Admitted for generalized weakness and vomiting. On admission bradycardia, elevated digoxin level, digoxin toxicity. DNR/DNI. Ortho on consult for knee. Not a surgical candidate at this time for removal of hardware. ID on consult. IV antibiotics for 4-6 weeks, PICC catheter inserted. Digoxin level stabilized. Restarted low dose Digoxin. Discharge planning. Family wanted to bring her home instead of [facility]. Plan: For discharge home today Cardiac status stable Heart rate stable Blood pressure controlled On Eliquis 2.5 mg daily,Lipitor 20 mg daily, Digoxin 0.125 mg daily, Lasix 40 mg daily, Continue IV antibiotics as ordered by ID Needed 4-6 weeks of Antibiotics per ID(via PICC) Replenished low potassium Continue current medications Continue current treatment Nutritional support Will follow up Plan and treatment discussed with
[2018-07-15] MEDS ORDERED: Potassium Chloride 20 mEq ER Tab PO STA (07:04)
[2018-07-15 08:00] LABS: ALB/GLOB RATIO 0.7 (1.1-1.8); ALBUMIN 2.3 g/dL (3.0-4.8); ALT/SGPT 17 U/L (7-56); AST/SGOT 26 U/L (14-36); BLOOD UREA NITROGEN 6 mg/dL (7-21); GFR NON-AFRICAN AMERICAN > 60
[2018-07-15 08:11] LABS: BASO # 0.05 K/mm3 (0.0-2.0); BASO % 0.7 % (0.0-3.0); EOS # 0.6 (0.0-0.7); EOS % 8.6 % (1.5-5.0); GRAN # 4.09 (1.4-6.5); GRAN % 58.8 % (50.0-68.0); HEMOGLOBIN 8.9 g/dL (12.0-16.0); LYMPH # 1.7 (1.2-3.4); LYMPH % 23.9 % (22.0-35.0); MEAN CELL VOLUME 86.9 fl (80.0-105.0); MEAN CORPUSCULAR HEMOGLOBIN 27.7 pg (25.0-35.0); MEAN CORPUSCULAR HGB CONC 31.9 g/dl (31.0-37.0); MONO # 0.6 (0.1-0.6); RBC 3.21 10^6/uL (3.5-6.1); RED CELL DISTRIBUTION WIDTH 17.3 % (11.5-14.5)
[2018-07-15] MEDS: Cholecalciferol 1,000 INTLU TAB PO SCH (09:08)
[2018-07-15 09:09] VITALS: BP 111/50; PULSE 88; RESP 20; TEMP 98.5
[2018-07-15] MEDS: Pantoprazole 40 mg EC Tab PO SCH (09:10)
[2018-07-15] MEDS: CADEXOMER IODINE 0.9% GEL 10G TOP SCH (09:12)
--- NOTE | 2018-07-15 11:45 | CP.PCM.PN ---
Subjective - Date & Time of Evaluation Date of Evaluation: 07/15/18 Time of Evaluation: 11:40 - Subjective Subjective: Podiatry Progress Note- Dr. Oliva/Tamera 82 y/o female seen and evaluated at bedside this morning, sleeping at time of visit. Resting comfortably with right leg dressed with knee brace and elevated on pillows. Admits to mild-moderate pain in the right knee. Denies fever, nausea, vomiting, chills. Has no other acute complaints. Objective - Vital Signs/Intake and Output Vital Signs (last 24 hours): Temp Pulse Resp BP Pulse Ox 98.5 F 88 20 111/50 L 98 07/15/18 06:00 07/15/18 06:00 07/15/18 06:00 07/15/18 09:08 07/15/18 06:00 Intake and Output: 07/15/18 07/15/18 06:59 18:59 Intake Total 120 Output Total 400 Balance -280 - Medications Medications: Current Medications Acetaminophen (Tylenol 325mg Tab) 650 mg PO Q6H PRN PRN Reason: Pain, moderate (4-7) Last Admin: 07/10/18 23:49 Dose: 650 mg Apixaban (Eliquis) 2.5 mg PO Q12 [facility]; Protocol Last Admin: 07/15/18 09:10 Dose: 2.5 mg Atenolol (Tenormin) 12.5 mg PO BID [facility] Last Admin: 07/15/18 09:08 Dose: 12.5 mg Atorvastatin Calcium (Lipitor) 20 mg PO HS [facility] Last Admin: 07/14/18 22:28 Dose: 20 mg Cadexomer Iodine (Iodosorb) 0 gm TOP DAILY [facility] Last Admin: 07/15/18 09:12 Dose: 1 gm Calcium Carbonate (Caltrate) 600 mg PO DAILY [facility] Last Admin: 07/15/18 09:08 Dose: 600 mg Cholecalciferol (Vitamin D) 2,000 intlu PO DAILY [facility] Last Admin: 07/15/18 09:08 Dose: 2,000 intlu Digoxin (Digoxin) 0.125 mg PO 1400 [facility] Last Admin: 07/14/18 14:59 Dose: 0.125 mg Docusate Sodium (Colace) 100 mg PO BID [facility] Last Admin: 07/15/18 09:11 Dose: Not Given Furosemide (Lasix) 40 mg PO DAILY [facility] Last Admin: 07/15/18 09:08 Dose: 40 mg Meropenem (Merrem Iv 1 Gm Premix) 1 gm in 50 mls @ 100 mls/hr IVPB Q8 [facility]; Protocol Stop: 07/21/18 22:18 Last Admin: 07/15/18 05:07 Dose: 100 mls/hr Daptomycin 410 mg/ Sodium (Chloride) 100 mls @ 200 mls/hr IV Q24H [facility]; Protocol Stop: 07/21/18 14:01 Last Admin: 07/14/18 14:36 Dose: 200 mls/hr Mirtazapine (Remeron) 15 mg PO HS [facility] Last Admin: 07/14/18 22:28 Dose: 15 mg Pantoprazole Sodium (Protonix Ec Tab) 40 mg PO DAILY [facility] Last Admin: 07/15/18 09:10 Dose: 40 mg - Labs Labs: 07/15/18 05:00 07/15/18 07:15 PT 18.9 SECONDS (9.4-12.5) H 07/06/18 13:50 INR 1.63 07/06/18 13:50 APTT 33.5 Seconds (25.1-36.5) 07/06/18 13:50 - Constitutional Appears: Well, Non-toxic, No Acute Distress - Head Exam Head Exam: ATRAUMATIC, NORMOCEPHALIC - Eye Exam Eye Exam: Normal appearance Pupil Exam: NORMAL ACCOMODATION - ENT Exam ENT Exam: Mucous Membranes Moist - Respiratory Exam Respiratory Exam: NORMAL BREATHING PATTERN - Cardiovascular Exam Cardiovascular Exam: REGULAR RHYTHM - Extremities Exam Additional comments: RLE focused exam: Vasc: DP/PT faintly palpable. Cap refill< 3 sec to all digits. Temp gradient warm to warm. minimal edema to right knee. Mild Periwound erythema noted. Neuro: Gross and protective sensations are intact. Derm: Open post-surgical wound to central aspect of right knee measures 3 cm x 3 cm x 0.3cm with additional smaller superficial wound to dorsolateral aspect of knee approx 1cm x 1 cm x 0.1cm. Wound bases are 20% fibrotic and 80% granular; mild-moderate serosanguinous drainage noted on the dressing. No active drainage or purulence, no malodor, no streaking cellulitis, no magdalena-wound erythema MSK: Mild-moderate on palpation of the periwound area. Muscle power around the knee joint unable to be assessed due to pain and guarding Assessment and Plan - Assessment and Plan (Free Text) Assessment: 82 y/o female with locally infected knee wound s/p extrusion of prosthetic secondary to infection Plan: Patient seen and evaluated at bedside Discussed plan with Dr. Hazel Woo knee wound cleansed with sterile saline and dressed with maxorb and optifoam dressing Wound culture - no growth Dr. Watson on consult, recs appreciated Dr. Baltazar on consult; recs appreciated Dr. Simeon on consult - recs appreciated Dr. Medrano on consult; recs appreciated Stable for discharge; patient will continue to follow Will continue to follow and provide local wound care
--- NOTE | 2018-07-15 15:29 | CP.PCM.DIS ---
<Francisco Pacheco - Last Filed: 07/15/18 15:24> Provider - Provider Date of Admission: 07/06/18 16:33 Attending physician: Gabbi Weiss MD Consults: 07/10/18 17:20 VNA [Case Management Referral] Routine Comment: Physician Instructions: Reason For Exam: VNA SN:Disease,med,wound care and IV mgt. Home PT. Reason for Referral: Discharge Planning 07/06/18 17:42 Cardiology Consult Stat Comment: Consulting Provider: Gabbi Medrano Consulting Physician: Gabbi Medrano Reason for Consult: CHF exacerbation, bradycardia, digoxin toxicity 07/07/18 06:48 Podiatry Consult Routine Comment: Consulting Provider: Kristen Oliva Consulting Physician: Kristen Oliva Reason for Consult: Hyperbaric O2 therapy for chronic wound 07/07/18 08:51 Physician Consult Routine Comment: PVD Consulting Provider: Satnam Baltazar Consulting Physician: Satnam Baltazar Reason for Consult: PVD 07/07/18 08:59 Physician Consult Routine Comment: Consulting Provider: Dominick Simeon Consulting Physician: Dominick Simeon Reason for Consult: right knee infection 07/07/18 15:37 Orthopedic Consult Routine Comment: Consulting Provider: Hernan Watson Consulting Physician: Hernan Watson Reason for Consult: hx right prosthetic knee, cellulitis Time Spent in preparation of Discharge (in minutes): 35 Hospital Course - Lab Results Lab Results: Micro Results 07/07/18 11:30 Blood-Venous Blood Culture - Final NO GROWTH AFTER 5 DAYS 07/07/18 11:30 Blood-Venous Gram Stain - Final TEST NOT PERFORMED 07/07/18 11:15 Blood-Venous Blood Culture - Final NO GROWTH AFTER 5 DAYS 07/07/18 11:15 Blood-Venous Gram Stain - Final TEST NOT PERFORMED 07/07/18 09:00 Knee - Right Gram Stain - Final 07/07/18 09:00 Knee - Right Wound Culture - Final No growth. Most Recent Lab Values WBC 7.0 10^3/uL (4.5-11.0) 07/15/18 05:00 RBC 3.21 10^6/uL (3.5-6.1) L 07/15/18 05:00 Hgb 8.9 g/dL (12.0-16.0) L 07/15/18 05:00 Hct 27.9 % (36.0-48.0) L 07/15/18 05:00 MCV 86.9 fl (80.0-105.0) 07/15/18 05:00 MCH 27.7 pg (25.0-35.0) 07/15/18 05:00 MCHC 31.9 g/dl (31.0-37.0) 07/15/18 05:00 RDW 17.3 % (11.5-14.5) H 07/15/18 05:00 Plt Count 239 10^3/uL (120.0-450.0) 07/15/18 05:00 MPV 10.0 fl (7.0-11.0) 07/15/18 05:00 Gran % 58.8 % (50.0-68.0) 07/15/18 05:00 Lymph % (Auto) 23.9 % (22.0-35.0) 07/15/18 05:00 [place] % (Auto) 8.0 % (1.0-6.0) H 07/15/18 05:00 Eos % (Auto) 8.6 % (1.5-5.0) H 07/15/18 05:00 Baso % (Auto) 0.7 % (0.0-3.0) 07/15/18 05:00 Gran # 4.09 (1.4-6.5) 07/15/18 05:00 Lymph # (Auto) 1.7 (1.2-3.4) 07/15/18 05:00 [place] # (Auto) 0.6 (0.1-0.6) 07/15/18 05:00 Eos # (Auto) 0.6 (0.0-0.7) 07/15/18 05:00 Baso # (Auto) 0.05 K/mm3 (0.0-2.0) 07/15/18 05:00 ESR 11 mm/hr (0.0-20.0) 07/15/18 05:00 PT 18.9 SECONDS (9.4-12.5) H 07/06/18 13:50 INR 1.63 07/06/18 13:50 APTT 33.5 Seconds (25.1-36.5) 07/06/18 13:50 pO2 36 mm/Hg (30-55) 07/06/18 13:50 VBG pH 7.48 (7.32-7.43) H 07/06/18 13:50 VBG pCO2 46.0 (40-60) 07/06/18 13:50 VBG HCO3 34.3 mmol/l (21-28) H 07/06/18 13:50 VBG Total CO2 35.7 mmol.L (22-28) H 07/06/18 13:50 VBG O2 Sat (Calc) 73.8 % (40-65) H 07/06/18 13:50 VBG Base Excess 9.4 mmol/L (0.0-2.0) H 07/06/18 13:50 VBG Potassium 3.4 mmol/L (3.6-5.2) L 07/06/18 13:50 Sodium 132.0 mmol/L (132-148) 07/06/18 13:50 Chloride 97.0 mmol/L (98-107) L 07/06/18 13:50 Glucose 83 mg/dl (65-105) 07/06/18 13:50 Lactate 1.4 mmol/L (0.7-2.1) 07/06/18 13:50 FiO2 21.0 % 07/06/18 13:50 Sodium 134 mmol/L (132-148) 07/15/18 07:15 Potassium 3.8 mmol/L (3.6-5.0) 07/15/18 07:15 Chloride 98 mmol/L (98-107) 07/15/18 07:15 Carbon Dioxide 34 mmol/L (21-33) H 07/15/18 07:15 Anion Gap 7 (10-20) L 07/15/18 07:15 BUN 6 mg/dL (7-21) L 07/15/18 07:15 Creatinine 0.5 mg/dl (0.7-1.2) L 07/15/18 07:15 Est GFR ( Amer) > 60 07/15/18 07:15 Est GFR (Non-Af Amer) > 60 07/15/18 07:15 Random Glucose 78 mg/dL (70-110) 07/15/18 07:15 Calcium 8.0 mg/dL (8.4-10.5) L 07/15/18 07:15 Phosphorus 2.7 mg/dL (2.5-4.5) 07/14/18 05:20 Magnesium 1.8 mg/dL (1.7-2.2) 07/14/18 05:20 Total Bilirubin 0.9 mg/dL (0.2-1.3) 07/15/18 07:15 AST 26 U/L (14-36) 07/15/18 07:15 ALT 17 U/L (7-56) 07/15/18 07:15 Alkaline Phosphatase 102 U/L (38-126) 07/15/18 07:15 Lactate Dehydrogenase 429 U/L (333-699) 07/06/18 13:50 Total Creatine Kinase < 20 U/L (35-230) L 07/15/18 07:15 Troponin I 0.06 ng/mL 07/07/18 01:58 C-Reactive Protein 37.90 mg/L (0.0-9.9) H 07/07/18 10:00 C-React Prot High Sens > 15.00 mg/L (1.00-3.00) H 07/07/18 07:00 NT-Pro-B Natriuret Pep 7570 pg/mL (0-450) H 07/06/18 13:50 Total Protein 5.4 g/dL (5.8-8.3) L 07/15/18 07:15 Albumin 2.3 g/dL (3.0-4.8) L 07/15/18 07:15 Globulin 3.1 gm/dL 07/15/18 07:15 Albumin/Globulin Ratio 0.7 (1.1-1.8) L 07/15/18 07:15 Prealbumin 4.3 mg/dL (17.6-36.0) L 07/08/18 06:45 25-OH Vitamin D Total 14.4 NG/ML (30.0-100.0) L 07/09/18 09:55 Venous Blood Potassium 3.4 mmol/L (3.6-5.2) L 07/06/18 13:50 Digoxin 0.8 ng/mL (0.8-2.0) 07/15/18 06:00 - Hospital Course Hospital Course: Upon admission, 82 y o female with PMhx HTN, CAD, A-fib previously on Warfarin and now on Eliquis currently, OA, and 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 Pt states that her legs started becoming painful several days ago and were difficult to lift on own, pt states she is bedbound and does not ambulate at Rehab facility. Denies associated numbness/tingling, color changes to lower extremities b/l, or lower leg swelling. Also states that she had been vomiting over the past several days but denies any vomiting episodes today, states she was vomiting up whitish sputum. Denies fever or chills. Admits to dizziness. Denies chest pain, palpitations, shortness of breath, n/v/d/c, abd pain, urinary complaints, or other symptoms currently. Pt was recently discharged from [facility] earlier this month for treatment for osteomyelitis of R knee. During hospital course, digoxin level initially noted to be elevated and was subsequently held. Once dgioxin level was at 1, digoxin 0.125mg was resumed as per cardiology recommendations. Her nausea and vomiting resolved. Troponin was noted to be 0.06 x3 and BNP noted to be 7570 with clinical symptoms of heart failure as CXR showed small B/L pleural effusions. She was continued on eliquis 2.5mg BID for her history of atrial fibrillation. Hospital wound cultures of right knee did now show any growth, however outpatient wound cultures grew pseudomonas and as per ID recommendations, patient needs 4 week therapy of daptomycin and merrem. Ext US were negative for DVT and patient was afebrile and no WBC count noted on day of discharge. Patient agreed to have her weekly blood checked for CBC, CMP, ESR and CRP. Patient agreed with discharge today and all her questions were answered. Discharge Exam - Additional Findings Additional findings: - Constitutional Appears: Non-toxic, No Acute Distress - Head Exam Head Exam: ATRAUMATIC, NORMAL INSPECTION, NORMOCEPHALIC - Eye Exam Eye Exam: Normal appearance - ENT Exam ENT Exam: Mucous Membranes Moist - Respiratory Exam Respiratory Exam: Clear to Ausculation Bilateral, NORMAL BREATHING PATTERN - Cardiovascular Exam Cardiovascular Exam: REGULAR RHYTHM - GI/Abdominal Exam GI & Abdominal Exam: Soft - Neurological Exam Neurological Exam: Alert, Awake, Oriented x3 - Skin Additional comments: Right knee lateral ulcer measuring 4cm x 3cm, not actively bleeding/draining. Granulation tissue present. Discharge Plan - Discharge Medications Prescriptions: RX: Apixaban [Eliquis] 2.5 mg PO BID #60 tab RX: Atenolol [Tenormin] 12.5 mg PO BID #60 tab RX: Atorvastatin [Lipitor] 20 mg PO DIN #30 tab RX: Calcium Carbonate [Caltrate] 600 mg PO DAILY #30 tab RX: Cholecalciferol [Vitamin D 1000 IU] 2,000 intlu PO DAILY #30 tab RX: Digoxin 0.125 mg PO 1400 #30 tab RX: Docusate [Colace] 100 mg PO BID #60 cap RX: Furosemide [Lasix] 40 mg PO DAILY #30 tab RX: Pantoprazole Sodium [Protonix] 40 mg PO DAILY #30 tablet.dr - Follow Up Plan Condition: FAIR Disposition: HOME/ ROUTINE Instructions: Heart Failure, Adult (DC), Bradycardia (DC) Additional Instructions: Please follow up with your primary care doctor. As per our discussion, you will look for a primary care doctor that best suits your needs with distance. Please take your medications as prescribed. A script has been for all your medications for 30 days. You will need refills from your primary care doctor. Your digoxin dose has been changed to 0.125mg daily. Your atenolol dose has been changed to 12.5mg twice daily. Please get weekly blood work (CBC, CMP, CRP, ESR) for the antibiotics you are taking. You will receive 4 weeks of IV antibiotics of daptomycin and merrem. Please sit up while eating and remain upright for 1 hour before lying down. Please return to the ED for any new or worsening symptoms. <Gabbi Weiss - Last Filed: 07/15/18 17:33> Provider - Provider Date of Admission: 07/06/18 16:33 Attending physician: Gabbi Weiss MD Consults: 07/10/18 17:20 VNA [Case Management Referral] Routine Comment: Physician Instructions: Reason For Exam: VNA SN:Disease,med,wound care and IV mgt. Home PT. Reason for Referral: Discharge Planning 07/06/18 17:42 Cardiology Consult Stat Comment: Consulting Provider: Gabbi Medrano Consulting Physician: Gabbi Medrano Reason for Consult: CHF exacerbation, bradycardia, digoxin toxicity 07/07/18 06:48 Podiatry Consult Routine Comment: Consulting Provider: Kristen Oliva Consulting Physician: Kristen Oliva Reason for Consult: Hyperbaric O2 therapy for chronic wound 07/07/18 08:51 Physician Consult Routine Comment: PVD Consulting Provider: Satnam Baltazar Consulting Physician: Satnam Baltazar Reason for Consult: PVD 07/07/18 08:59 Physician Consult Routine Comment: Consulting Provider: Dominick Simeon Consulting Physician: Dominick Simeon Reason for Consult: right knee infection 07/07/18 15:37 Orthopedic Consult Routine Comment: Consulting Provider: Hernan Watson Consulting Physician: Hernan Watson Reason for Consult: hx right prosthetic knee, cellulitis Hospital Course - Lab Results Lab Results: Micro Results 07/07/18 11:30 Blood-Venous Blood Culture - Final NO GROWTH AFTER 5 DAYS 07/07/18 11:30 Blood-Venous Gram Stain - Final TEST NOT PERFORMED 07/07/18 11:15 Blood-Venous Blood Culture - Final NO GROWTH AFTER 5 DAYS 07/07/18 11:15 Blood-Venous Gram Stain - Final TEST NOT PERFORMED 07/07/18 09:00 Knee - Right Gram Stain - Final 07/07/18 09:00 Knee - Right Wound Culture - Final No growth. Most Recent Lab Values WBC 7.0 10^3/uL (4.5-11.0) 07/15/18 05:00 RBC 3.21 10^6/uL (3.5-6.1) L 07/15/18 05:00 Hgb 8.9 g/dL (12.0-16.0) L 07/15/18 05:00 Hct 27.9 % (36.0-48.0) L 07/15/18 05:00 MCV 86.9 fl (80.0-105.0) 07/15/18 05:00 MCH 27.7 pg (25.0-35.0) 07/15/18 05:00 MCHC 31.9 g/dl (31.0-37.0) 07/15/18 05:00 RDW 17.3 % (11.5-14.5) H 07/15/18 05:00 Plt Count 239 10^3/uL (120.0-450.0) 07/15/18 05:00 MPV 10.0 fl (7.0-11.0) 07/15/18 05:00 Gran % 58.8 % (50.0-68.0) 07/15/18 05:00 Lymph % (Auto) 23.9 % (22.0-35.0) 07/15/18 05:00 [place] % (Auto) 8.0 % (1.0-6.0) H 07/15/18 05:00 Eos % (Auto) 8.6 % (1.5-5.0) H 07/15/18 05:00 Baso % (Auto) 0.7 % (0.0-3.0) 07/15/18 05:00 Gran # 4.09 (1.4-6.5) 07/15/18 05:00 Lymph # (Auto) 1.7 (1.2-3.4) 07/15/18 05:00 [place] # (Auto) 0.6 (0.1-0.6) 07/15/18 05:00 Eos # (Auto) 0.6 (0.0-0.7) 07/15/18 05:00 Baso # (Auto) 0.05 K/mm3 (0.0-2.0) 07/15/18 05:00 ESR 11 mm/hr (0.0-20.0) 07/15/18 05:00 PT 18.9 SECONDS (9.4-12.5) H 07/06/18 13:50 INR 1.63 07/06/18 13:50 APTT 33.5 Seconds (25.1-36.5) 07/06/18 13:50 pO2 36 mm/Hg (30-55) 07/06/18 13:50 VBG pH 7.48 (7.32-7.43) H 07/06/18 13:50 VBG pCO2 46.0 (40-60) 07/06/18 13:50 VBG HCO3 34.3 mmol/l (21-28) H 07/06/18 13:50 VBG Total CO2 35.7 mmol.L (22-28) H 07/06/18 13:50 VBG O2 Sat (Calc) 73.8 % (40-65) H 07/06/18 13:50 VBG Base Excess 9.4 mmol/L (0.0-2.0) H 07/06/18 13:50 VBG Potassium 3.4 mmol/L (3.6-5.2) L 07/06/18 13:50 Sodium 132.0 mmol/L (132-148) 07/06/18 13:50 Chloride 97.0 mmol/L (98-107) L 07/06/18 13:50 Glucose 83 mg/dl (65-105) 07/06/18 13:50 Lactate 1.4 mmol/L (0.7-2.1) 07/06/18 13:50 FiO2 21.0 % 07/06/18 13:50 Sodium 134 mmol/L (132-148) 07/15/18 07:15 Potassium 3.8 mmol/L (3.6-5.0) 07/15/18 07:15 Chloride 98 mmol/L (98-107) 07/15/18 07:15 Carbon Dioxide 34 mmol/L (21-33) H 07/15/18 07:15 Anion Gap 7 (10-20) L 07/15/18 07:15 BUN 6 mg/dL (7-21) L 07/15/18 07:15 Creatinine 0.5 mg/dl (0.7-1.2) L 07/15/18 07:15 Est GFR ( Amer) > 60 07/15/18 07:15 Est GFR (Non-Af Amer) > 60 07/15/18 07:15 Random Glucose 78 mg/dL (70-110) 07/15/18 07:15 Calcium 8.0 mg/dL (8.4-10.5) L 07/15/18 07:15 Phosphorus 2.7 mg/dL (2.5-4.5) 07/14/18 05:20 Magnesium 1.8 mg/dL (1.7-2.2) 07/14/18 05:20 Total Bilirubin 0.9 mg/dL (0.2-1.3) 07/15/18 07:15 AST 26 U/L (14-36) 07/15/18 07:15 ALT 17 U/L (7-56) 07/15/18 07:15 Alkaline Phosphatase 102 U/L (38-126) 07/15/18 07:15 Lactate Dehydrogenase 429 U/L (333-699) 07/06/18 13:50 Total Creatine Kinase < 20 U/L (35-230) L 07/15/18 07:15 Troponin I 0.06 ng/mL 07/07/18 01:58 C-Reactive Protein 13.60 mg/L (0.0-9.9) H 07/15/18 07:15 C-React Prot High Sens > 15.00 mg/L (1.00-3.00) H 07/07/18 07:00 NT-Pro-B Natriuret Pep 7570 pg/mL (0-450) H 07/06/18 13:50 Total Protein 5.4 g/dL (5.8-8.3) L 07/15/18 07:15 Albumin 2.3 g/dL (3.0-4.8) L 07/15/18 07:15 Globulin 3.1 gm/dL 07/15/18 07:15 Albumin/Globulin Ratio 0.7 (1.1-1.8) L 07/15/18 07:15 Prealbumin 4.3 mg/dL (17.6-36.0) L 07/08/18 06:45 25-OH Vitamin D Total 14.4 NG/ML (30.0-100.0) L 07/09/18 09:55 Venous Blood Potassium 3.4 mmol/L (3.6-5.2) L 07/06/18 13:50 Digoxin 0.8 ng/mL (0.8-2.0) 07/15/18 06:00 Attending/Attestation - Attestation I have personally seen and examined this patient.: Yes I have fully participated in the care of the patient.: Yes I have reviewed all pertinent clinical information, including history, physical exam and plan: Yes Notes (Text): 07/15/18 17:29 Medical record note made by the resident after discussion with my direction and input after the patient was personally seen and examined by me. I have reviewed the chart and agree that the record accurately reflects by personal performance of the history, physical exam, data review, and medical decision-making, in the course for the patient. I have also personally directed the plan of care. 82 year old female with past medical history of CAD, hypertension, afib on eliquis, and history of right knee replacement with history of periprosthetic infection s/p antibiotics who presented from [place] with complaint of nausea, vomiting and lower extremity pain/swelling. Found to have elevated digoxin level, elevated pbnp, bradycardia and small bilateral pleural effusions on CXR. Currently digoxin and atenolol are hold. 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 Blood cx no growth, wound cx shows no growth. Patient will need weekly CBC,CMP ,CRP and ESR while on IV antibiotics. Patient lung sounds are clear, there is no sign of overt CHF. AF, rate is controlled with Atenolol, Digoxin on anticoagulation with Apixiban.Digoixin dose is reduced to 125 mcg daily, Patient is going to be discharged home today and will follow up with Orthopaedic and PMD. Prognosis is guarded.
--- NOTE | 2018-07-15 19:25 | PN ---
DATE: 07/15/2018 LOCATION: The patient is in room 567, bed 2. Detailed progress note has been already written by Peggy Cheney. This is an additional note. The patient was admitted with leg pain and vomiting. The patient is known case of hypertension, coronary artery disease, PTCA in year 1999, chronic atrial fibrillation on Coumadin, osteoarthritis, recent right knee replacement with history of periprosthetic infection, admitted for generalized weakness and vomiting. Now the patient is feeling better. The patient on IV antibiotics. Infectious disease and orthopedic consult was done. The patient's digoxin level was elevated also on admission, so patient's digoxin dose has been reduced and now the patient is back on digoxin 0.125 daily and today's digoxin level is 0.8. Today's patient's hemoglobin 8.9, hematocrit 27.9, WBC 7, and platelet 239. Today's sodium 134, potassium 3.8, BUN is 6, and creatinine 0.5. The patient has PICC line. We will continue antibiotics at home at present for total time of 4 to 6 weeks. It will be arranged by Infectious Disease and in the meantime, the patient present medication will continue the same. We will follow. Gabbi Flores MD
== END 2018-07-15 12:12 | disposition home or self-care (01) | DRG 862 ==
LOC: ED 12:35 → ERH 16:33 → 2RNO 19:13 → 5RNO 07-11 22:55
PROVIDERS: ADMIT Internal Medicine; ATTEND Internal Medicine
PROC: 02HV33Z Insertion of Infusion Device into Superior Vena Cava, Percutaneous Approach (ICD-10-PCS; principal; 2018-07-10)
DX: T81.49XA Infection following a procedure, other surgical site, initial encounter (principal); E43 Unspecified severe protein-calorie malnutrition; L97.819 Non-pressure chronic ulcer of other part of right lower leg with unspecified severity; I50.32 Chronic diastolic (congestive) heart failure; Z68.1 Body mass index [BMI] 19.9 or less, adult; I11.0 Hypertensive heart disease with heart failure; I25.10 Atherosclerotic heart disease of native coronary artery without angina pectoris; I48.2 Chronic atrial fibrillation; R11.2 Nausea with vomiting, unspecified; R00.1 Bradycardia, unspecified; I27.20 Pulmonary hypertension, unspecified; E87.6 Hypokalemia; T46.0X5A Adverse effect of cardiac-stimulant glycosides and drugs of similar action, initial encounter; B96.5 Pseudomonas (aeruginosa) (mallei) (pseudomallei) as the cause of diseases classified elsewhere; I08.1 Rheumatic disorders of both mitral and tricuspid valves; Z66 Do not resuscitate; M81.0 Age-related osteoporosis without current pathological fracture; Y83.1 Surgical operation with implant of artificial internal device as the cause of abnormal reaction of the patient, or of later complication, without mention of misadventure at the time of the procedure; Z79.01 Long term (current) use of anticoagulants; Z74.01 Bed confinement status; Z86.73 Personal history of transient ischemic attack (TIA), and cerebral infarction without residual deficits; Z98.61 Coronary angioplasty status